=== PATIENT | female | born 1950 | race Caucasian/White ===

== ENCOUNTER 2022-01-18 13:24 | Outpatient (CLI) | payer MEDICARE, OTHER, SELFPAY ==
--- OUTSIDE RECORDS SUMMARY | 2022-01-18 13:28 | XMS_ITS | Encounter Summary ---
:1950 Author Organization [facility] Address [address] [place] [address] Care Team Providers Name Role Phone Unavailable Primary Care Provider Unavailable Encounter Details Date Type Department Care Team Description 09/21/2020 Immunization Department of [facility] J Carlos Turner For COVID-19 Medicine, Eric Walters M.D. 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
--- OUTSIDE RECORDS SUMMARY | 2022-01-18 13:28 | XMS_ITS | Encounter Summary ---
:1950 Author Organization [facility] Address [address] [place] [address] Care Team Providers Name Role Phone Unavailable Primary Care Provider Unavailable Encounter Details Date Type Department Care Team Description 08/01/2018 Hospital Encounter Department of Laboratory Banuelos, [facility] latoya Pickett, Diarrhea [facility] [address] [facility] [address] [place], [place] [phone] (Wo rk) Social History Tobacco Use Types Packs/Day Years Used Date Smoking Tobacco: Former Sex Assigned at Date Recorded Female 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 dicyclomine (BENTYL) 10 Take 20 mg by mouth 0 mg capsule 3 (three) times a day. Lactobacillus rhamnosus Take 2 capsules by 0 GG (CULTURELLE) 10 mouth every evening. billion cell capsule sertraline (ZOLOFT) 100 Take 200 mg by mouth 0 mg tablet daily. acetaminophen (TYLENOL) Take 2 tablets 0 07/22/19 19 500 mg tablet (1,000 mg total) by mouth every 6 (six) hours as needed for pain (first line option for pain). oxyCODONE (ROXICODONE) 5 Take 1 tablet (5 mg 12 tablet 0 mg immediate release total) by mouth tabletIndications: Acute every 6 (six) hours Pain as needed for severe pain or score 7-10 of 10 (breakthrough pain, pain not controleed by Tylenol and Tramadol) Indication: Acute Pain. polyethylene glycol Take 1 packet (17 g 10 packet 0 019 (MIRALAX) 17 gram powder total) by mouth packet daily as needed for constipation. Dissolve each 17 g dose in 240 mLs (8 ounces) of beverage. sennosides-docusate Take 2 tablets by 0 9 sodium (SENOKOT-S) 8.6-50 mouth 2 (two) times mg per tablet a day. traMADol (ULTRAM) 50 mg Take 1 tablet (50 mg 15 tablet 0 tabletIndications: Acute total) by mouth Pain Exception every 6 (six) hours as needed for moderate pain or score 4-6 of 10 (second line option for pain, pain not controlled by tylenol alone) for up to 20 doses Indications: Acute Pain Exception. traMADol (ULTRAM) 50 mg Take 1 tablet (50 mg 8 tablet 0 08/08/2018 tabletIndications: total) by mouth Prolonged Acute every 6 (six) hours Pain/Traumatic Injury as needed for pain, mild pain or score 1-3 of 10 or moderate pain or score 4-6 of 10 for up to 7 days Indications: Prolonged Acute Pain/Traumatic Injury. Take as needed for pain documented as of this encounter Plan of Treatment Not on filedocumented as of this encounter Visit Diagnoses Diagnosis Diarrhea documented in this encounter Additional Health Concerns Assessment Noted Time PHQ-9 Depression Total Score: 2 02/19/2014 2:58 PM CDT documented as of this encounter
--- OUTSIDE RECORDS SUMMARY | 2022-01-18 13:28 | XMS_ITS | Encounter Summary ---
:1950 Author Organization [facility] Address [address] [place] [address] Care Team Providers Name Role Phone Unavailable Primary Care Provider Unavailable Encounter Details Date Type Department Care Team Description 09/23/2018 Clinical Communication Division of Trauma Avtar carcamo, Critical Care and Dori Oliva APRN, General Surgery in C.N.P., M.S.N . 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 - 09/23/2018 1:11 PM CDT Ms. Painting called inquiring about the results of a chest x-ray she had sent over at our request for follow-up of her traumatic rib fractures. I called her back to discuss the findings. She is having no current respiratory symptoms. No shortness of breath. No dyspnea on exertion. Chest x-ray showed small residual pleural effusion unchanged from the previous x-ray as well as a small hematoma related to posterior rib fractures. This is also unchanged from the previous imaging. She does not require any further chest x-rays or follow-up here in our clinic. If she should develop any shortness of breathor acute pain, she will be seen at her local emergency department or by her primary care provider. documented in this encounter Plan of Treatment Not on filedocumented as of this encounter Visit Diagnoses Not on filedocumented in this encounter Additional Health Concerns Assessment Noted Time PHQ-9 Depression Total Score: 2 02/19/2014 2:58 PM CDT documented as of this encounter
--- OUTSIDE RECORDS SUMMARY | 2022-01-18 13:28 | XMS_ITS | Encounter Summary ---
:1950 Author Organization [facility] Address [address] [place] [address] Care Team Providers Name Role Phone Unavailable Primary Care Provider Unavailable Encounter Details Date Type Department Care Team Description 08/06/2018 Hospital Encounter Department of J Carlos Hernandez Hemot horax Trauma Initial; Radiology, Adolfo WILKES C.N.P., Pneumotho rax Trauma Initial; Building, in .S.N. 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 Fracture Rib Multiple Closed Initial Left documented in this encounter Results DX Chest AP or PA and Lateral 2 Views (08/06/2018 10:09 AM COIL FINISHER) Anatomical Region Laterality Modality Chest, Thoracic RST LOS, Thoracic ARZ LOS, Thoracic N/A Digital Radiography FLA LOS Specimen (Source) Anatomical Collection Method Collection Time Re ceived Time Location / / Volume Laterality 08/06/2018 10:16 AM COIL FINISHER Impressions 08/06/2018 10:18 AM COIL FINISHER IMPRESSION: Small left effusion has increased compared to prior. Multiple left-sided rib fractures. No pneumothora x. Heart size and pulmonary vasculature are normal. Narrative 08/06/2018 10:18 AM COIL FINISHER EXAM: ??DX CHEST AP OR PA AND LATERAL 2 VIEWS Procedure Note Keny Claros M.D. - 08/06/2018Formatt ing of this note might be different from the original. EXAM: DX CHEST AP OR PA AND LATERAL 2 EWS IMPRESSION: Small left effusion has incr eased compared to prior. Multiple left-sided rib fractures. No pneumothora x. Heart size and pulmonary vasculature are normal. J Carlos Hernandez APRN C.N.Hayden., M.S.N. IMG DIAGNOSTIC IMAG ING PROCEDURES documented in this encounter Visit Diagnoses Diagnosis Hemothorax Trauma Initial Pneumothorax Trauma Initial Fracture Rib Multiple Closed Initial Lef t documented in this encounter Additional Health Concerns Assessment Noted Time PHQ-9 Depression Total Score: 2 02/19/2014 2:58 PM CDT documented as of this encounter
--- OUTSIDE RECORDS SUMMARY | 2022-01-18 13:28 | XMS_ITS | Encounter Summary ---
:1950 Author Organization [facility] Address [address] [place] [address] Care Team Providers Name Role Phone Unavailable Primary Care Provider Unavailable Reason for Visit Appointment Request (Routine) - Closed Specialty Diagnoses / Procedures Referred By Contact Refer red To Contact Family Medicine Referral ID Status Reason Start Date Expiration Date Visits Requ ested Visits Authorized [id number] Closed 08/18/2021 08/18/2022 1 1 Encounter Details Date Type Department Care Team Description 09/09/2021 Immunization Department of Family Medicine, [facility], in [place], [place] [address] [place] [phone] Social History Tobacco Use Types Packs/Day Years Used Date Smoking Tobacco: Former Sex Assigned at Date Recorded Female 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
--- OUTSIDE RECORDS SUMMARY | 2022-01-18 13:28 | XMS_ITS | Encounter Summary ---
:1950 Author Organization [facility] Address [address] [place] [address] Care Team Providers Name Role Phone Unavailable Primary Care Provider Unavailable Reason for Visit Reason Comments Rib Injury Outpatient (Routine) - Closed Specialty Diagnoses / Procedures Referred By Contact Refer red To Contact Trauma Critical Care Banuelos, Dara Pedroza egalva and General Surgery P.A.-CYvonne [address] [place] [phone] Referral ID Status Reason Start Date Expiration Date Visits Requ ested Visits Authorized [id number] Closed 08/06/2018 08/06/2019 1 1 Encounter Details Date Type Department Care Team Description 08/13/2018 Office Visit Division of Trauma Banuelos, Radhames Pedroza-CYvonne [address] [place] [phone] Pneumothorax Trauma Initial (Primary Dx) ; Critical Care and Matthew Lee APRN [address] [place] [phone] Hemothorax Trauma Initial; General Surgery in Fracture Rib Multiple Closed Initial Left; [place], [place] Major Laceration Spleen Init ial; [address] [place] [address] Splenectomy [place] [phone] Social History Tobacco Use Types Packs/Day Years Used Date Smoking Tobacco: Former Sex Assigned at Date Recorded Female 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 - 08/13/2018 10:00 AM CST SUBJECTIVE CHIEF COMPLAINT / REASON FOR VISIT Yarelis Painting is a 67 y.o. female who presents for evaluation of Rib Injury. HISTORY OF PRESENT ILLNESS Ms. 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 Since her discharge she has been doing well she has been tolerating a general diet she denies any fevers chills or shortness ofbreath. She has returned to her normal activities of daily living. At this time she is not driving she is not taking any narcotic pain medications and is only taking Tylenol as needed. She followed up with a chest x-ray last week noting a left pleural effusion. A chest x-ray was obtained today showing to little to no change. The following portions of the patient's history were reviewed and updated as appropriate: allergies,current medications, family history, medical history, social history, surgical history and problem list. OBJECTIVE PHYSICAL EXAM Constitutional: She is oriented to person, place, and time. Vital signs are normal. She appears well-developed and well-nourished. No distress. Cardiovascular: Normal rate, regular rhythm, S1 normal, S2 normal, normal heart sounds and normal pulses. Exam reveals no S3 and no S4. Pulmonary/Chest: Effort normal and breath sounds normal. No respiratory distress. She has no decreased breath sounds. She has no wheezes. She has no rales. She exhibits no tenderness. Some ecchymosis noted on the left chest wall and abdomen. This appears to be resolving. Abdominal: Soft. Normal appearance and bowel sounds are normal. She exhibits no distension. There isno tenderness. Abdominal incision is well approximated no erythema purulent discharge or acute signs or symptoms ofinfection. Neurological: She is alert and oriented to person, place, and time. She has normal strength. GCS eyesubscore is 4. GCS verbal subscore is 5. GCS motor subscore is 6. Skin: Skin is warm and dry. Capillary refill takes less than 2 seconds. No cyanosis or erythema. ASSESSMENT / PLAN #1 Pneumothorax Trauma Initial #2 Hemothorax Trauma Initial #3 Fracture Rib Multiple Closed Initial Left #4 Major Laceration Spleen Initial #5 Splenectomy Total Status Post Ms. Painting chest x-ray today shows unchanged small left pleural effusion. Clinically Ms. Painting looks excellent and is progressing as expected. Given the lack of resolution for the left-sided pleural effusion I will be speaking with one of my colleagues regarding further follow-up and/or interventions that would be required. Obviously there would be some concern for a loculated fluid collection with the complication of lung entrapment. I informed Ms. Painting that I will follow up with her tomorrow after discussing the findings with the trauma surgeon on staff. I have spoken with Dr. Pimentel about Ms Campos Chest xray and since she is asymptomatic there is little that is recommended about her loss of lung volume. I followed up with her with a phone call and explained that since she is doing well clinically that any interventions may do more harm than good. I did explain that sometimes an infection could occur at a later date. I educated her on s/s of infection and encouraged her to give us a call if she had any other questions or concerns. I have advised her to follow up with her PCP in approximately 3 months with a chest xray for monitoring or if she develops any symptoms to give us a call and be seen sooner. She agreed with the plan of care. WARE COMPUTER SPECIALIST documented in this encounter Plan of Treatment Not on filedocumented as of this encounter Visit Diagnoses Diagnosis Pneumothorax Trauma Initial - Primary Hemothorax Trauma Initial Fracture Rib Multiple Closed Initial Lef t Major Laceration Spleen Initial Splenectomy Total Status Post documented in this encounter Additional Health Concerns Assessment Noted Time PHQ-9 Depression Total Score: 2 02/19/2014 2:58 PM CDT documented as of this encounter
--- OUTSIDE RECORDS SUMMARY | 2022-01-18 13:28 | XMS_ITS | Encounter Summary ---
:1950 Author Organization [facility] Address [address] [place] [address] Care Team Providers Name Role Phone Unavailable Primary Care Provider Unavailable Reason for Referral Outpatient (Routine) - Closed Specialty Diagnoses / Procedures Referred By Contact Refer red To Contact Trauma Critical Care BanuelosKhushbu [facility] and General Surgery Myles [address] [place] [address] Referral ID Status Reason Start Date Expiration Date Visits Requ ested Visits Authorized [id number] Closed 08/06/2018 08/06/2019 1 1 OPERATOR Reason for Visit Reason Comments Follow-up Outpatient (Routine) - Closed Specialty Diagnoses / Procedures Referred By Contact Refer red To Contact Trauma Critical Care J Carlos Hernandez [facility] Nadya WILKES, M.S.N. [address] [place] [address] Referral ID Status Reason Start Date Expiration Date Visits Requ ested Visits Authorized [id number] Closed 07/22/2018 07/22/2019 1 1 Encounter Details Date Type Department Care Team Description 08/06/2018 Office Visit Division of Trauma J Carlos Hernandez APRN, C.NChad, M.S.N. [address] [place] [phone] Fracture Rib Multiple Closed Initial Lef t (Primary Dx); Critical Care and Khushbu Banuelos P.A.-C. 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 - 08/06/2018 11:00 AM CST SUBJECTIVE CHIEF COMPLAINT / REASON FOR VISIT Yarelis Painting is a 67 y.o. female who presents for follow up for reevaluation of rib fractures and abdominal wound check. HISTORY OF PRESENT ILLNESS Ms. Painting presented to [facility] on 07/15/18 after a fall from standing. After evaluation, she was transferred to [facility] for further evaluation of her traumatic injuries. Upon arrival, massive transfusion was initiated and the decision was made to proceed with operative intervention. She was taken to the operating room at which time she was noted with a splenic laceration with active bleeding. She underwent splenectomy. She was admitted and her injuries were monitored. A CT was also inserted on 07/18/18 for a management of left hemopneumothorax. This was removed on 07/20/18.She remained hospitalized until 07/22/18 at which time she was discharged to home. She presents todayfor scheduled follow up with CXR and wound check. She notes that she is slowly improving. She states that she continues to experience pain in her left chest, however, notes that she has now been utilizing Tylenol 1000 mg every 6 hours alone. She denies any continued use of Oxycodone or Tramadol. She denies any dyspnea at rest. She does report that she is able to perform her normal daily activities however is feeling winded at times. She denies anypalpitations. She also denies any cough, fever or chills. She reports she is performing deep inspiration 10 times per hour and is utilizing incentive spirometry at least 1 time per day at which time she is pulling 2000. She notes that her appetite is slowly improving but she continues to feel full after minimal intake. She, however, is able to take oral intake. She notes that she previously was experiencing diarrhea, however, she is now having this small formed stools approximately 3 times per day. She notes that today she has not had any bowel movement. She notes she is ambulating with assist of a walker. She denies any other issues or concerns. OBJECTIVE PHYSICAL EXAM GEN:Alert and Oriented NEURO: GCS 15 PULM: Clear to Auscultation Bilaterally, No Rhonchi, Rales or Wheezes, Left lateral chest wall tender to palpation, no palpable crepitus or deformity CVS:regular rate and rhythm ABD:Soft, Nontender, Nondistended, Midline abdominal incision healed with skin well approximated, nosurrounding erythema or drainage, Previous left BERNY site healed with skin well approximated, no surrounding erythema or drainage ASSESSMENT / PLAN #1 Status post Fall from Standing on ICE #2 Fracture Rib Multiple Closed Initial Left #3 Pneumothorax Trauma Initial #4 Hemothorax Trauma Initial Left 3-8 lateral, 4-8 posterior with flail segment 4-8 Left hemopneumothorax s/p CT (07/18/18) At this time, her pain has been controlled with utilization of Tylenol 1000 mg every 6 hr. She has discontinued utilization of any narcotics. She denies any significant shortness of breath and is comfortable upon examination. She is utilizing incentive spirometry and is pulling 1999. I have reviewed her chest x-ray performed today. I note a minimal effusion that has developed from previous chest x-ray. On full review, I note a possible slight increased collapse of her chest wall. This, however is also minimal but requires close follow-up. Given her pain is controlled and she is otherwise doing well, I have elected to follow this chest x-ray with a follow-up chest x-ray next week. I have advised the patient to contact our service immediately if she notes increasing shortness of breath or increasing pain. At her follow-up visit, if further concerns are noted in regards to her chest x-ray the Trauma data communications software consultant, Dr. Pimentel, will be contacted to evaluate the patient to discuss if further interventions are necessary. I have also recommended increased use of incentive spirometry and continued utilization of her pain regimen. I have also stressed the importance of lifting restriction. #5 Major Laceration Spleen Initial #6 Splenectomy Total Status Post #7 Anemia Posthemorrhagic Acute (Blood Loss Anemia) S/p Exploratory Laparotomy, Splenectomy (07/15/18) She notes no abdominal pain at this time. Her midline incision has completely closed and is noted with no open areas. No signs of infection are observed. Her diet is slowly improving. She notes that the diarrhea that she was previously experiencing has resolved. We have discussed her need for repeat splenic vaccinations in October. She will follow up with her primary care provider for these vaccinations.We will reiterate this to her at her next visit. OPERATOR documented in this encounter Plan of Treatment Scheduled Referrals Name Type Priority Associated Diagnoses Order S [facility] Trauma Critical Outpatient Referral Routine Expec anastasiya: Care and General 08/13/2018 Surgery office (Approximate) , visit (clinic) Expires: 08/06/2021 documented as of this encounter Results DX Chest AP or PA and Lateral 2 Views (08/13/2018 9:52 AM ALUM OPERATOR) Anatomical Region Laterality Modality Chest, Thoracic RST LOS, Thoracic ARZ LOS, Thoracic N/A Digital Radiography FLA LOS Specimen (Source) Anatomical Collection Method Collection Time Re ceived Time Location / / Volume Laterality 08/13/2018 10:00 AM ALUM OPERATOR Impressions 08/13/2018 10:03 AM ALUM OPERATOR IMPRESSION: ??No significant change since 08/06/2018. Small left pleural effusion with adjacent atelectasis. Left rib frac tures. Narrative 08/13/2018 10:03 AM ALUM OPERATOR EXAM: ??DX CHEST AP OR PA AND LATERAL 2 VIEWS Procedure Note Luan Suarez M.D. - 08/13/2018F ormatting of this note might be different from the original. EXAM: DX CHEST AP OR PA AND LATERAL 2 EWS IMPRESSION: No significant change since 08/06/2018. Small left pleural effusion with adjacent atelectasis. Left rib frac tures. Khushbu Banuelos P.A.-C. IMG DIAGNOSTIC IMAGING PROCE DURES documented in this encounter Visit Diagnoses Diagnosis Fracture Rib Multiple Closed Initial Lef t - Primary Pneumothorax Trauma Initial Hemothorax Trauma Initial Major Laceration Spleen Initial Splenectomy Total Status Post Anemia Posthemorrhagic Acute (Blood Loss Anemia) Fracture Rib Multiple Closed Initial Lef t documented in this encounter Additional Health Concerns Assessment Noted Time PHQ-9 Depression Total Score: 2 02/19/2014 2:58 PM CDT documented as of this encounter
--- OUTSIDE RECORDS SUMMARY | 2022-01-18 13:28 | XMS_ITS | Encounter Summary ---
:1950 Author Organization [facility] Address [address] [place] [address] Care Team Providers Name Role Phone Unavailable Primary Care Provider Unavailable Encounter Details Date Type Department Care Team Description 08/13/2018 Hospital Encounter Department of Banuelos, Meliza Pedroza Radiology, Adolfo Bueno Multiple Closed Building, in [address] [place] [address] Initial Left [place], [place] [address] [facility] [address] [place], [place] [phone] [address] (Work) [phone] Social History Tobacco Use Types Packs/Day Years Used Date Smoking Tobacco: Former Sex Assigned at Date Recorded Female 07/31/2018 2:58 PM HOOK UP documented as of this encounter Medications at Time of Discharge Medication Sig Dispensed Refills Start Date End Date cholecalciferol (VITAMIN Take 1,000 Units by 0 D3) 1,000 Unit tablet mouth daily. dicyclomine (BENTYL) 10 mg Take 20 mg by mouth 3 0 capsule (three) times a day. Lactobacillus rhamnosus GG Take 2 capsules by 0 (CULTURELLE) 10 billion mouth every evening. cell capsule sertraline (ZOLOFT) 100 mg Take 200 mg by mouth 0 tablet daily. acetaminophen (TYLENOL) Take 2 tablets (1,000 0 0 07/22/2018 500 mg tablet mg total) by mouth every 6 (six) hours as needed for pain (first line option for pain). oxyCODONE (ROXICODONE) 5 Take 1 tablet (5 mg 12 tablet 0 mg immediate release total) by mouth every tabletIndications: Acute 6 (six) hours as Pain needed for severe pain or score 7-10 of 10 (breakthrough pain, pain not controleed by Tylenol and Tramadol) Indication: Acute Pain. polyethylene glycol Take 1 packet (17 g 10 packet 0 019 (MIRALAX) 17 gram powder total) by mouth daily packet as needed for constipation. Dissolve each 17 g dose in 240 mLs (8 ounces) of beverage. sennosides-docusate sodium Take 2 tablets by 0 (SENOKOT-S) 8.6-50 mg per mouth 2 (two) times a tablet day. traMADol (ULTRAM) 50 mg Take 1 tablet (50 mg 15 tablet 0 tabletIndications: Acute total) by mouth every Pain Exception 6 (six) hours as needed for moderate pain or score 4-6 of 10 (second line option for pain, pain not controlled by tylenol alone) for up to 20 doses Indications: Acute Pain Exception. documented as of this encounter Plan of Treatment Not on filedocumented as of this encounter Procedures Procedure Name Priority Date/Time Associated Comments Diagnosis DX CHEST AP OR PA RAD - Routine 08/13/2018 9:52 Fracture Rib Result s for this AND LATERAL 2 (most inpatients AM HOOK UP Multiple Closed procedu re are in VIEWS and all Initial Left the results outpatients) section. documented in this encounter Results DX Chest AP or PA and Lateral 2 Views (08/13/2018 9:52 AM HOOK UP) Anatomical Region Laterality Modality Chest, Thoracic RST LOS, Thoracic ARZ LOS, Thoracic N/A Digital Radiography FLA LOS Specimen (Source) Anatomical Collection Method Collection Time Re ceived Time Location / / Volume Laterality 08/13/2018 10:00 AM HOOK UP Impressions 08/13/2018 10:03 AM HOOK UP IMPRESSION: ??No significant change since 08/06/2018. Small left pleural effusion with adjacent atelectasis. Left rib frac tures. Narrative 08/13/2018 10:03 AM HOOK UP EXAM: ??DX CHEST AP OR PA AND LATERAL 2 VIEWS Procedure Note Luan Suarez M.D. - 08/13/2018F ormatting of this note might be different from the original. EXAM: DX CHEST AP OR PA AND LATERAL 2 EWS IMPRESSION: No significant change since 08/06/2018. Small left pleural effusion with adjacent atelectasis. Left rib frac tures. Khushbu [facility] ISAIAS HURTADO documented in this encounter Visit Diagnoses Diagnosis Fracture Rib Multiple Closed Initial Lef t documented in this encounter Additional Health Concerns Assessment Noted Time PHQ-9 Depression Total Score: 2 02/19/2014 2:58 PM CDT documented as of this encounter
--- OUTSIDE RECORDS SUMMARY | 2022-01-18 13:28 | XMS_ITS | Encounter Summary ---
:1950 Author Organization [facility] Address [address] [place] [address] Care Team Providers Name Role Phone Unavailable Primary Care Provider Unavailable Reason for Referral Specialty Diagnoses / Procedures Referred By Contact Refer red To Contact [address] [address] Referral ID Status Reason Start Date Expiration Date Visits Requ ested Visits Authorized CAR WELDER Reason for Visit Appointment Request (Routine) - Closed Specialty Diagnoses / Procedures Referred By Contact Refer red To Contact Anderson Pierce M.D. [address] [place] [address] Referral ID Status Reason Start Date Expiration Date Visits Requ ested Visits Authorized [id number] Closed 08/10/2020 08/10/2021 1 1 Encounter Details Date Type Department Care Team Description 08/20/2020 Immunization Department of [facility] Anderson Pierce ncounter For COVID-19 Medicine, Eric De Anda Jr., M.D. 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
--- OUTSIDE RECORDS SUMMARY | 2022-01-18 13:28 | XMS_ITS | Encounter Summary ---
:1950 Author Organization [facility] Address [address] [place] [address] Care Team Providers Name Role Phone Unavailable Primary Care Provider Unavailable Encounter Details Date Type Department Care Team Description 04/07/2021 [facility] Department of Family Medicine, [address] [address] [facility] [phone] Social History Tobacco Use Types Packs/Day Years Used Date Smoking Tobacco: Former Sex Assigned at Date Recorded Female 07/31/2018 2:58 PM FORESTRY PATROLMAN documented as of this encounter Plan of Treatment Not on filedocumented as of this encounter Visit Diagnoses Not on filedocumented in this encounter Additional Health Concerns Assessment Noted Time PHQ-9 Depression Total Score: 2 02/19/2014 2:58 PM CDT documented as of this encounter
--- OUTSIDE RECORDS SUMMARY | 2022-01-18 13:28 | XMS_ITS | Clinical Summary ---
:1950 Author Organization [facility] Address [address] [place] [address] Care Team Providers Name Role Phone Unavailable Primary Care Provider Unavailable Source Comments Patient records contain information from all sites at [facility]. For routine questions regarding patient records, call [phone] during business hours, M-F 8:00 AM - 5:00 PM Central Time. Record requests for emergency care only can be directed to [phone] at any time.[facility] Allergies Active Allergy Reactions Severity Noted Date Comments Fexofenadine Other (see comments) 01/01/2012 Gabapentin Other (see comments) 01/10/2016 Nsaids (Non-Steroidal GI bleeding 04/26/2016 Some m inor bleeding Anti-Inflammatory Drug) afte r Meloxicam Medications Medication Sig Dispensed Refills Start Date End Date Status cholecalciferol (VITAMIN Take 1,000 Units 0 Active D3) 1,000 Unit tablet by mouth daily. dicyclomine (BENTYL) 10 Take 20 mg by 0 Active mg capsule mouth 3 (three) times a day. Lactobacillus rhamnosus Take 2 capsules 0 Active GG (CULTURELLE) 10 by mouth every billion cell capsule evening. sertraline (ZOLOFT) 100 Take 200 mg by 0 Active mg tablet mouth daily. pregabalin (LYRICA) 75 Take 1 capsule 9 capsule 0 07/22/2018 Active mg capsule (75 mg total) by mouth 2 (two) times a day for 9 doses. sennosides-docusate Take 2 tablets 0 07/22/2018 Active sodium (SENOKOT-S) by mouth 2 (two) 8.6-50 mg per tablet times a day. Additional Information Patient not taking. Reported on 08/06/2018 oxyCODONE (ROXICODONE) 5 mg Take 1 tablet (5 mg 12 tablet 0 Active immediate release total) by mouth every 6 tabletIndications: Acute Pain (six) hours as needed for severe pain or score 7-10 of 10 (breakthrough pain, pain not controleed by Tylenol and Tramadol) Indication: Acute Pain. Additional Information Patient not taking. Reported on 08/06/2018 acetaminophen (TYLENOL) 500 Take 2 tablets (1,000 mg 0 07/22/2018 Active mg tablet total) by mouth every 6 (six) hours as needed for pain (first line option for pain). polyethylene glycol (MIRALAX) Take 1 packet (17 g 10 packet 0 07/22/2018 Active 17 gram powder packet total) by mouth daily as needed for constipation. Dissolve each 17 g dose in 240 mLs (8 ounces) of beverage. Additional Information Patient not taking. Reported on 08/06/2018 traMADol (ULTRAM) 50 mg Take 1 tablet (50 mg 15 tablet 0 07/29 Active tabletIndications: Acute Pain total) by mouth every 6 Exception (six) hours as needed for moderate pain or score 4-6 of 10 (second line option for pain, pain not controlled by tylenol alone) for up to 20 doses Indications: Acute Pain Exception. Additional Information Patient not taking. 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 Hemothorax Trauma Initial 07/19/2018 Abnormal Computed Tomography 07/19/2018 Overview: 07/15/18 CT chest with gas noted in the ri ght upper extremity, query right humerus contusion Hypophosphatemia 07/19/2018 Pneumothorax Trauma Initial 07/16/2018 Overview: Left, small Fracture Rib Multiple Closed Initial Left 07/16/2018 Anemia Posthemorrhagic Acute (Blood Loss Anemia) 07/16 Major Laceration Spleen Initial 07/15/2018 Dysthymia 05/20/2013 Overview: Dysthymic Disorder (300.4) Resolved Problems Problem Noted Date Resolved Date Hypovolemic Shock 07/16/2018 07/19/2018 Acute Respiratory Failure With Hypoxia 07/16/2018 0 07/19/2018 Immunizations Name Administration Dates Next Due HZV (ZOSTAVAX) 01/02/2011 HepA Adult 02/02/2011, 12/29/2009, 02/17/2009 HepB (discontinued) adolescent/high 06/08/2010, 12/29/2009, 02/17/2009 risk Hib (PRP-OMP) (PedvaxHIB) 07/22/2018 IPV 02/17/2009 Influenza, Unspecified 03/24/2014, 03/11/2013 MCV4 (Menactra) 07/22/2018 MenB (BEXSERO) 07/22/2018 SARS-COV-2 (COVID-19) - MODERNA 09/09/2021, 04/07/2021, 09/09, 08/20/2020 Tdap 02/17/2009 Family History Medical History Relation Name Comments Colon cancer Brother Heart disease Father Thyroid cancer Father Relation Name Status Comments Brother Father Social History Tobacco Use Types Packs/Day Years Used Date Smoking Tobacco: Former Sex Assigned at Date Recorded Female 07/31/2018 2:58 PM 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 Last Filed Vital Signs Vital Sign Reading Time Taken Comments Blood Pressure 135/62 07/22/2018 6:30 PM 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 Pulse 88 07/22/2018 6:30 PM 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 Temperature 36.3 ??C (97.3 ??F) 07/22/2018 6:30 PM 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 Respiratory Rate 16 07/22/2018 6:30 PM 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 Oxygen Saturation 99% 07/22/2018 6:30 PM 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 Inhaled Oxygen Concentration - - Weight 76.6 kg (168 lb 14 oz) 07/22/2018 8:00 AM 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 Height 170 cm (5' 6.93) 07/16/2018 8:00 AM 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 Body Mass Index 26.51 07/16/2018 8:00 AM 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 Plan of Treatment Health Maintenance Due Date Last Done Comments Bone Density Scan (Osteoporosis 1950 Screen) CT Colonography 1950 Cologuard 1950 Hepatitis C Screening 1950 Mammogram 03/24/2015 03/24/2014, 02/03/2013 (Performed elsewhere) MenB Vaccine (3 of 4 - Increased 09/17/2019 09/16/2018, 04/2019 Risk Bexsero 2-dose series) Depression Screening (Annual 06/11/2021 PHQ-2) Fall Risk Screen (Annual) 06/11/2021 COVID-19 Vaccine (5 - Booster for 01/09/2022 09/09/2021, , Moderna series) 09/21/2020, Additional history exists Influenza Vaccine (#1) 2022 03/17/2021, 02/27/2020, 03/12/2019, Additional history exists Meningococcal Vaccine (3 - Risk 09/17/2023 09/16/2018, 07/12 2-dose series) Fasting Glucose for Diabetes 04/25/2024 04/25/2021, 020, Screening 09/09/2018, Additional history exists Colonoscopy 03/08/2026 03/08/2021, 01/26/2011 Colorectal Cancer Surveillance 03/08/2026 DTaP,Tdap,and Td Vaccines (5 - Td 03/10/2030 03/10/2020, , or Tdap) 04/04/2019, Additional history exists HIB Vaccines Completed 07/22/2018 Pneumococcal vaccine (65+ years) Completed 02/27/2020, 06/2015, 10/14/2014 Zoster Vaccines Completed 08/06/2020, 05/24/2020, 01/02/2011 Insurance Payer Benefit Plan Subscriber ID Effective Phone Address Typ e / Group Dates MEDICARE MEDICARE A [id number] 2014-Prese [address] Medicare [place] [facility] [place] [address] FOR FOR [id number] 2020-Pres [phone] [address] Indemnity LIFE LIFE ent [address] [place] [address] Advance Directives For more information, please contact: [phone] Latest Code Status on File Code Status Date Activated Date Inactivated Comments Full Code 07/15/2018 10:26 PM 07/22/2018 9:17 PM Full Code: Not Discussed Due to: Patient does not have the capacity
--- OUTSIDE RECORDS SUMMARY | 2022-01-18 13:28 | XMS_ITS | Encounter Summary ---
:1950 Author Organization [facility] Address [address] [place] [address] Care Team Providers Name Role Phone Unavailable Primary Care Provider Unavailable Reason for Referral Appointment Request (Routine) - Closed Specialty Diagnoses / Procedures Referred By Contact Refer red To Contact Anderson Pierce M.D. [address] [place] [address] Referral ID Status Reason Start Date Expiration Date Visits Requ ested Visits Authorized [id number] Closed 08/10/2020 08/10/2021 1 1 NSED PSYCHIATRIC TECHNICIAN Encounter Details Date Type Department Care Team Description 08/09/2020 Orders Only RST PCP [facility] Erwin Stanford Jr., M.D. [address] [place] [phone] (Wo rk) Social History Tobacco Use Types Packs/Day Years Used Date Smoking Tobacco: Former Sex Assigned at Date Recorded Female 07/31/2018 2:58 PM LICENSED PSYCHIATRIC TECHNICIAN documented as of this encounter Plan of Treatment Scheduled Referrals Name Type Priority Associated Order Schedule Diagnoses Covid immunization Outpatient Referral Routine Ex pected: office visit Initial 021 (Approximate), Expires: 08/09/2021 documented as of this encounter Visit Diagnoses Not on filedocumented in this encounter Additional Health Concerns Assessment Noted Time PHQ-9 Depression Total Score: 2 02/19/2014 2:58 PM CDT documented as of this encounter
--- OUTSIDE RECORDS SUMMARY | 2022-01-18 13:29 | XMS_ITS | Encounter Summary ---
:1950 Author Organization 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 - 07/24/2018 1:18 PM FILM DEVELOPING MACHINE OPERATOR I received call from Tammi at [facility] requesting additional home health care orders for physical, occupational, and intermediate therapies including suture removal on 07/30/17 from old chest tube site. I contacted Tammi seeking additional information as there is active home health orders from my colleagues Annabel Clements PA-C and Merlin Hernandez FISHER MUSSEL. Her home health care agency and difficulty seeing these orders as well as electronic signatures. I copied the orders placed by both my colleagues and this seemed to resolve the issue. DEVELOPING MACHINE OPERATOR Telephone Encounter - Trang Red - 07/24/2018 9:09 AM CST [place] called indicating that she needs the order that was done by Annabel Clements late yesterday for on-going home health needs and PT and OT to be electronically signed. Please call her at [phone] if questions. Thanks DEVELOPING MACHINE OPERATOR documented in this encounter Plan of Treatment Not on filedocumented as of this encounter Visit Diagnoses Not on filedocumented in this encounter Additional Health Concerns Assessment Noted Time PHQ-9 Depression Total Score: 2 02/19/2014 2:58 PM CDT documented as of this encounter
--- OUTSIDE RECORDS SUMMARY | 2022-01-18 13:29 | XMS_ITS | Encounter Summary ---
:1950 Author Organization [facility] Address [address] [place] [address] Care Team Providers Name Role Phone Unavailable Primary Care Provider Unavailable Encounter Details Date Type Department Care Team Description 08/01/2018 Orders Only Division of Trauma Banuelos, Suresh Pedroza (Primary Dx) Critical Care and P.A.-C. General Surgery in [address] [place] [address] [place] [address] [place], [place] [phone] [address] (Work) [phone] Social History Tobacco Use Types Packs/Day Years Used Date Smoking Tobacco: Former Sex Assigned at Date Recorded Female 07/31/2018 2:58 PM DENIAL RESOLUTION SPECIALIST documented as of this encounter Plan of Treatment Not on filedocumented as of this encounter Visit Diagnoses Diagnosis Diarrhea - Primary documented in this encounter Additional Health Concerns Assessment Noted Time PHQ-9 Depression Total Score: 2 02/19/2014 2:58 PM CDT documented as of this encounter
--- OUTSIDE RECORDS SUMMARY | 2022-01-18 13:29 | XMS_ITS | Encounter Summary ---
:1950 Author Organization [facility] Address [address] [place] [address] Care Team Providers Name Role Phone Unavailable Primary Care Provider Unavailable Encounter Details Date Type Department Care Team Description 07/23/2018 Orders Only Division of Trauma Critical Robert Daley, [facility] [place] and General Surgery in [place], [place] [address] [facility] [address] [place] [address] [phone] (Wo rk) Social History Tobacco Use Types Packs/Day Years Used Date Smoking Tobacco: Former Sex Assigned at Date Recorded Female 07/31/2018 2:58 PM 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
--- OUTSIDE RECORDS SUMMARY | 2022-01-18 13:29 | XMS_ITS | Encounter Summary ---
:1950 Author Organization [facility] Address [address] [place] [address] Care Team Providers Name Role Phone Unavailable Primary Care Provider Unavailable Reason for Visit Reason Onset Date Comments Medication Problem 07/31/2018 Encounter Details Date Type Department Care Team Description 07/31/2018 Clinical Communication Division of Trauma Giuliano Martinez, Medication Problem Critical Care and M.D. 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 - 07/31/2018 9:41 AM CST Patient called back at [phone] Ms. Painting calls in today to discuss a concerns about diarrhea she is having. She reports having approximately three watery stools a day since time of dismissal. She was wondering if the Tramadol sheis taking could be causing this. She has a history of IBS which she takes probiotics and Dicyclominefor. She notes she has very occasional episodes of diarrhea with her IBS, but this is not the norm. She typically experiences constipation. She currently denies having fevers, abdominal pain, N/V. Her pain has been well controlled on Tylenol 1000 mg q 6hrs and Tramadol q 6hrs. She has discontinued taking the MiraLAX she was prescribed at the time of hospital dismissal to see if this would help alleviate the watery stools, without benefit. She has not taken the Tramadol in almost 24 hours, without change in the stool consistency. She has been tolerating an oral diet but states that she has an almost immediate urge to have a bowel movement following eating. She was on genesis-operative antibiotics early in her hospital course and had experienced constipation until dismissal. She has an anti-diarrheal at home that she will trial to see if this helps to alleviate things. She was also provided information on a stool thickening diet, and avoidance of sugary foods and drinks. She was instructed to stay well hydrated. If her diarrhea does not improve over the next 24-48 hours she will contact us back for further instruction. If this persists, it would not be unreasonable to send a stool specimen for microbiology testing. The patient was appreciative of the call and the information provided. She has our contact information if further questions or concerns should arise. ISION FARMING SPECIALIST Telephone Encounter - Rashmi Richards - 07/31/2018 8:23 AM CST She was given Tramadol and does not feel like it is working. Can she get something else? Please call patient at [phone]. Thank you. Rashmi ISION FARMING SPECIALIST documented in this encounter Plan of Treatment Not on filedocumented as of this encounter Visit Diagnoses Not on filedocumented in this encounter Additional Health Concerns Assessment Noted Time PHQ-9 Depression Total Score: 2 02/19/2014 2:58 PM CDT documented as of this encounter
--- OUTSIDE RECORDS SUMMARY | 2022-01-18 13:29 | XMS_ITS | Encounter Summary ---
:1950 Author Organization [facility] Address [address] [place] [address] Care Team Providers Name Role Phone Unavailable Primary Care Provider Unavailable Encounter Details Date Type Department Care Team Description 07/23/2018 Clinical Communication Division of Trauma Isac Daley, Critical Care and CHUNG, C.N.P. 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 - 07/23/2018 10:03 AM PARTICLE BOARD SUPERVISOR We received a message from Ms. Painting regarding needing a refill on her Tramadol pain medication. She had a splenectomy/exploratory laparotomy on 07/15/2018 after falling on the ice. She was also inquiring about needing a refill on the Lyrica. I mentioned, we normally do not refill the Lyrica as it can be harming to the kidneys, but that Tramadol could definitely be refilled. She mentions she lives in [place] and her pharmacy of choice is [facility] in [place]. I have renewed her prescription and mentioned, due to weather issues today, if her pharmacy is closed, she may have to call her PCP to haveobtain a refill of her Tramadol. She was in agreement to this plan and had no further questions or concerns at this time. ICLE BOARD SUPERVISOR documented in this encounter Plan of Treatment Not on filedocumented as of this encounter Visit Diagnoses Not on filedocumented in this encounter Additional Health Concerns Assessment Noted Time PHQ-9 Depression Total Score: 2 02/19/2014 2:58 PM CDT documented as of this encounter
--- OUTSIDE RECORDS SUMMARY | 2022-01-18 13:29 | XMS_ITS | Encounter Summary ---
:1950 Author Organization [facility] Address [address] [place] [id number] Care Team Providers Name Role Phone Unavailable Primary Care Provider Unavailable Reason for Visit Reason Onset Date Comments Medication Question 07/23/2018 Encounter Details Date Type Department Care Team Description 07/23/2018 Clinical Communication Division of Trauma JC arlos Hernandez Medication Question Critical Care and B, INNER DIAMETER GRINDER TOOL, General Surgery in 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 And is wondering about getting more Tramadol as she cannot take Oxycodone and did not get that prescription filled. She was given onlyTramadol while in the hospital. Please call her [phone]. Thank you. Rashmi N PICKER documented in this encounter Plan of Treatment Not on filedocumented as of this encounter Visit Diagnoses Not on filedocumented in this encounter Additional Health Concerns Assessment Noted Time PHQ-9 Depression Total Score: 2 02/19/2014 2:58 PM CDT documented as of this encounter
--- OUTSIDE RECORDS SUMMARY | 2022-01-18 13:29 | XMS_ITS | Encounter Summary ---
:1950 Author Organization [facility] Address [address] [place] [address] Care Team Providers Name Role Phone Unavailable Primary Care Provider Unavailable Encounter Details Date Type Department Care Team Description 07/23/2018 Orders Only Division of Trauma Critical Robert Daley, [facility] and General Surgery in [place], [place] [address] 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
--- OUTSIDE RECORDS SUMMARY | 2022-01-18 13:29 | XMS_ITS | Encounter Summary ---
:1950 Author Organization [facility] Address [address] [place] [address] Care Team Providers Name Role Phone Unavailable Primary Care Provider Unavailable Reason for Visit Reason Onset Date Comments Rx refill for Tramadol 08/01/2018 Encounter Details Date Type Department Care Team Description 08/01/2018 Clinical Communication Division of Trauma Giuliano Martinez, Rx refill for Critical Care and M.D. 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 - 08/01/2018 10:29 AM CST I have talked to the patient. She reports that she has again began to utilize Tramadol. She notes that she is also taking Tylenol 1000 mg every 6 hours. She states that she is uncomfortable after use of Tylenol alone. She notes that pain has not increased. At this time, I have provided her with a refill but advised of importance of weaning use of narcotics. She also advised that she has had continued loose stools as was discussed yesterday. At this time asit has continued, we will order C diff and follow up with patient. RIAL LABORATORY SUPERVISOR Telephone Encounter - Khushbu Banuelos P.A.-C. - 08/01/2018 10:28 AM CST Is in outbox in [facility]. Will need to be picked up and overnight mailed to patient. Thanks! RIAL LABORATORY SUPERVISOR Telephone Encounter - Jdoie Torres - 08/01/2018 9:19 AM CST Patient called stating that she will need a prescription refill for her Tramadol before the weekend.Please call her back at [phone]. Thanks- RIAL LABORATORY SUPERVISOR documented in this encounter Plan of Treatment Not on filedocumented as of this encounter Visit Diagnoses Not on filedocumented in this encounter Additional Health Concerns Assessment Noted Time PHQ-9 Depression Total Score: 2 02/19/2014 2:58 PM CDT documented as of this encounter
--- OUTSIDE RECORDS SUMMARY | 2022-01-18 13:29 | XMS_ITS | Encounter Summary ---
:1950 Author Organization [facility] Address [address] [place] [address] Care Team Providers Name Role Phone Unavailable Primary Care Provider Unavailable Reason for Referral Physical Therapy (Routine) - Closed Specialty Diagnoses / Procedures Referred By Contact Refer red To Contact Home Health Care Diagnoses Debility Unsteadiness Gait Disorder Non Orthopedic J Carlos Hernandez, Nadya WILKES, M.S.N. [address] [place] [address] Referral ID Status Reason Start Date Expiration Date Visits Requ ested Visits Authorized [id number] Closed Other 07/22/2018 07/22/2019 1 1 CIATE ENTERTAINMENT EDITOR Encounter Details Date Type Department Care Team Description 07/22/2018 Orders Only Division of Trauma J Carlos Hernandez, Manju ty (Primary Dx); Critical Care and Nadya WILKES, Unsteadin ess Gait Disorder Non Orthopedic General Surgery in 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
--- OUTSIDE RECORDS SUMMARY | 2022-01-18 13:30 | XMS_ITS | Encounter Summary ---
:1950 Author Organization [facility] Address [address] [place] [address] Care Team Providers Name Role Phone Unavailable Primary Care Provider Unavailable Encounter Details Date Type Department Care Team Description 07/16/2018 Ancillary Procedure Department of Laboratory Medicine Social History Tobacco Use Types Packs/Day Years Used Date Smoking Tobacco: Former Sex Assigned at Date Recorded Female 07/31/2018 2:58 PM BAKER CHEF documented as of this encounter Plan of Treatment Not on filedocumented as of this encounter Procedures Procedure Name Priority Date/Time Associated Diagnosis Comme nts PATHOLOGY IMAGE Routine 07/16/2018 8:42 AM Result s for this EXAM BAKER CHEF procedure are i n the results section. documented in this encounter Results Specimen-Pathology Image Exam (07/16/2018 8:42 AM BAKER CHEF) Specimen (Source) Anatomical Collection Method Collection Time Re ceived Time Location / / Volume Laterality 07/16/2018 12:00 PM BAKER CHEF Narrative [facility] - 07/16/2018 8:42 AM BAKER CHEF This order has been created and auto-finalized to support the import of images acquired without order. The clini abdoul documentation to support these images can be found on the encounter nadia t produced images. Provider Not In System IMG NON RAD IMAGING PROCEDUR ES Performing Organization Address City/State/ZIP Code Phon e Number [facility] NA documented in this encounter Visit Diagnoses Not on filedocumented in this encounter Additional Health Concerns Assessment Noted Time PHQ-9 Depression Total Score: 2 02/19/2014 2:58 PM CDT documented as of this encounter
--- OUTSIDE RECORDS SUMMARY | 2022-01-18 13:30 | XMS_ITS | Encounter Summary ---
:[address] 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 documented in this encounter Results CT Retrospective 3D Post Processing (07/18/2018 11:33 AM RUSSIAN LANGUAGE PROFESSOR) Anatomical Region Laterality Modality Abdomen, Pelvis, Musculoskeletal RST LOS, Abdominal Computed Tomography ARZ LOS, Musculoskeletal ARZ LOS, Neuroradiology ARZ LOS, Thoracic ARZ LOS, Vascular Interventional ARZ LOS, Abdominal FLA LOS, Thoracic FLA LOS, Neuroradiology FLA LOS, Muskuloskeletal FLA LOS Specimen (Source) Anatomical Collection Method Collection Time Re ceived Time Location / / Volume Laterality 07/18/2018 12:49 PM RUSSIAN LANGUAGE PROFESSOR Impressions 07/18/2018 12:51 PM RUSSIAN LANGUAGE PROFESSOR IMPRESSION: 3-D images performed on an independent w orkstation and reside in the CT examination of the chest in [facility] 019. Narrative 07/18/2018 12:51 PM RUSSIAN LANGUAGE PROFESSOR EXAM: CT RETROSPECTIVE 3D POST PROCESSING 3D Post-Processing performed on an imeem workstation. Procedure Note Cristofer De Oliveira M.D. - 07/18/2018Forma tting of this note might be different from the original. EXAM: CT RETROSPECTIVE 3D POST PROCESSIN G 3D Post-Processing performed on an imeem workstation. IMPRESSION: 3-D images performed on an independent w orkstation and reside in the CT examination of the chest in [facility] 019. J Carlos Elena M.D. IMCharmaine CT PROCEDURES documented in this encounter Visit Diagnoses Not on filedocumented in this encounter Additional Health Concerns Assessment Noted Time PHQ-9 Depression Total Score: 2 02/19/2014 2:58 PM CDT documented as of this encounter
--- OUTSIDE RECORDS SUMMARY | 2022-01-18 13:30 | XMS_ITS | Encounter Summary ---
:1950 Author Organization [facility] Address [address] [place] [address] Care Team Providers Name Role Phone Unavailable Primary Care Provider Unavailable Encounter Details Date Type Department Care Team Description 07/15/2018 Anesthesia Event RST ROMB MAIN OR Shara Santiago M.D. [address] [place] [address] [phone] [place] [address] Ariela Sanderson, PSYCHOLOGICAL OPERATIONS SPECIALIST, ENVIRONMENTAL HEALTH OFFICER, DNAP [address] [place] [address] [phone] [place] [address] Anesthesia Record Procedure Summary Procedure Name Responsible Anesthesiologist Anesthesia Start Ti me Anesthesia Stop Time Splenectomy Shara Santiago, 07/15/18 1841 9 2222 M.DYvonne Events Date Time Event Comment 07/15/2018 1841 An Start Machine/Equipmen t Checked Infection Precautions Foll owed Procedure/Site Verified NPO Sta tus Verified Supine Standard ASA Mon itors Applied 184 In Room 1850 An Intubation 1850 An Intubation 1854 Turnover to Proceduralist 1858 Proc Start 1902 An Induction 1907 An Induction 2124 Proc Fin 2152 Turnover to ANE Staff 2154 Airway Device Maintained to Post Op Area 2154 Transfer to ICU/PCU Anesthesia t ransport medically necessary Report received and care transferred Eliza l signs stable during transfer Ventilation and oxygen saturatio n stable during transport 2158 an stop data 0 Out of Room 2221 An End I completed my h andoff to the receiving staff during which we 1. Identified the p atient 2. Identified the r esponsible provider 3. Reviewed the pertinent medical history 4. Discu ssed the surgical course 5. Review ed intra-op anesthesia manag ement and issues during anesthesi a 6. Set expectations for post-procedure period 7. Allowe d opportunity for questions and ac knowledgement of understanding. Name Total fentanyl injection 50 mcg/mL 250 mcg propofol 10 mg/mL 120 mg succinylcholine 20 mg/mL injection 80 mg phenylephrine 100 mcg/mL injection 200 mcg sugammadex 100 mg/mL injection 200 mg vecuronium 10 mg injection 6 mg propofol 10 mg/mL infusion 940.26 mg ceFAZolin 2 g calcium gluconate 100 mg/mL (10%) injection 4 g sodium bicarbonate 1 mEq/mL injection 100 mEq HYDROmorphone PF 2 mg/mL injection 2 mg lactated ringers free drip 3,500 mL Agents No agents on file. Blood Name Total EMERGENCY PLTS 197 mL AUTOLOGOUS RBC-CELL SALVAGE 1,075 mL Lines, Drains, and Airways Type Details Placement Removal Indwelling Urinary Placement Date: 07/15/18 0000 by 07/17/18 161 9 by Catheter 07/15/18; Removal Date: Mabel Monae, Rachelle Diamond, 07/17/18; Removal Time: R.N. R.N. 1619 (RETIRED) Wound 07/15/18; No; Laceration 07/15/18 0000 by 1418 by (bite wisam ); Mouth Mabel Monae, [facility] c-Backgr (Lower Lip ); 03/01/21 R.N. nd, Sched uling (Removed by background Automated Batch Job completion utility); 1418 (Removed by background completion utility) Peripheral IV Placement Date: 07/15/18 1629 by 07/16/18 1045 b y 07/15/18; Placement Demetria Joshi, Lala Munroe V., Time: 1629; Existing LDA PSYCHOLOGICAL OPERATIONS SPECIALIST, C.N.P., D.N.P. R. N., CCRN Placed by: Other hospital; Catheter Size: 18 G; Orientation: Left; Location: Antecubital; Site Prep: Chlorhexidine (Preferred); Removal Date: 07/16/18; Removal Time: 1045; Removal Reason: Drainage Peripheral IV Placement Date: 07/15/18 1630 by 07/15/18 2247 b y 07/15/18; Placement Demetria Joshi, Solitario Monae, Time: 163; Existing LDA Nadir WILKESNChad, Genaro.P. R. N. Placed by: Other hospital; Catheter Size: 20 G; Orientation: Right; Location: Antecubital; Removal Date: 07/15/18; Removal Time: 224 Peripheral IV Placement Date: 07/15/181836 by 07/18/18 1100 b y 07/15/18; Placement Demetria Joshi, Shay Diamond, Time: 1836; Catheter Nadya WILKES, Genaro.P. R.N. Size: 18 G; Orientation: Left; Location: Wrist; Removal Date: 07/18/18; Removal Time: 1100 ETT Placement Date: 07/15/181850 by 07/16/18 1245 b y 07/15/18; Placement Oralia Fermin Jansen, E mily V., Time: 1850 (created via CHUNG R.N. R.N., narrow gauge brakeman documentation); Mask Ventilation: Not attempted; Type: Standard ETT; Single Lumen Tube Size: 7 mm; Cuffed: Yes; Location: Oral; Removal Date: 07/16/18; Removal Time: 1245 Arterial Line Placement Date: 07/15/181915 by 07/16/18 1709 b y 07/15/18; Placemnt Time: Oralia Fermin [place]in [place], Jeffrey J, 1915 (created via CHUNG, R.N. R.N. procedure documentation); Orientation: Right; Location: Radial; Site Prep: Chlorhexidine (Preferred); Insertion Attempts: 4; Securement: Securement dressing; Removal Date: 07/16/18; Removal Time: 1709 NG/OG Tube 07/15/18; 1919; 18 Fr; 07/15/181919 by 07/15/182354 by Right; 07/15/18; 2354 Isa Ta Tatma n, Tayler J, CHUNG, MADAN, Ingrid.N.P. R.N. Closed/Suction Drain 07/15/18; 1950; Abdomen; 07/15/181950 by 0 07/21/18 1300 by Bulb; 19 Fr.; No longer Ahsan Peoples, Hayden Rodriguez, in place, Per protocol Nadya WILKES, M.S.N. R.N. (RETIRED) Incision 07/15/18; 2128; Abdomen; 07/15/182128 by 1418 by ELENA PRIMAPORE 8X4 (x1); Ahsan Peoples, [facility]-Backgrou 03/01/21 (Removed by Nadya WILKES, M.S.N. nd, Ar heduling background completion Automated Batch Job utility); 1418 (Removed by background completion utility) documented in this encounter Social History Tobacco Use Types Packs/Day Years Used Date Smoking Tobacco: Former Sex Assigned at Date Recorded Female 07/31/2018 2:58 PM BRIQUETTE OPERATOR documented as of this encounter OR Notes Anesthesia Postprocedure Evaluation - Romario Rodriguez APRN, CRNA - 07/15/2018 10:22 PM CST Patient: Yarelis Painting Procedure Summary Date: 07/15/18 Room / Location: [place] [address] / [facility] in [place], [place] Anesthesia Start: 1840 Anesthesia Stop: 2221 Procedures: Splenectomy (N/A ) Exploratory Laparotomy (N/A ) Diagnosis: Provider: Lourdes Brown M.D. Responsible Provider: Shara Santiago M.D. Anesthesia Type: general ASA Status: 2 - Emergent Anesthesia Type: general Last vitals Vitals Value Taken Time BP 111/61 07/15/2018 10:15 PM Temp 36.5 07/15/2018 10:22 PM Pulse 82 07/15/2018 10:22 PM Resp 18 07/15/2018 10:22 PM SpO2 100 % 07/15/2018 10:22 PM Vitals shown include unvalidated device data. Anesthesia Post Evaluation Patient Disposition: monitored unit, expectation for recovery time deferred to receiving unit Cardiovascular status: hemodynamics (HR & BP) acceptable Respiratory status: mechanically ventilated Temperature: normothermic Oxygen requirements: assisted ventilation (non-invasive or mechanical ventilation) with additional oxygen Level of consciousness: unconscious, patient unable to participate in evaluation Pain score: pain unable to be assessed Post Op nausea/vomiting: none Hydration status: euvolemic UETTE OPERATOR Anesthesia Preprocedure Evaluation - Tomás Arias M.D. - 07/15/2018 7:51 PM CST Anesthesia Pre-Evaluation Pertinent components of the patient's history including current problem list, medical history, surgical history, family history, social history, medications and allergies were reviewed and updated as appropriate. The patient was examined and the Pre-op diagnosis, planned procedure, and H&P were reviewed and remain unchanged. PROBLEM LIST Relevant Problems Other (+) Dysthymia (+) Major Laceration Spleen Initial OBJECTIVE PHYSICAL EXAMINATION Airway (HEENT) C-collar in place Mallampati: II Mouth Opening: >3 cm Cardiovascular Tachycardia Rhythm: Regular Pulmonary Pulmonary Assessment: Clear Neurological Neurologic Assessment:??alert Abdomen Distended, tender ASSESSMENT / PLAN ANESTHESIA PLAN ASA: 2 - Emergent Anesthesia Plan: general Patient seen and allergies reviewed; anesthesia plan and risks discussed directly with patient / legal guardian, or through an precision grinder; patient evaluated and approved for anesthesia / sedation. Use of blood products discussed with patient who consented to blood products. Emergency Exception: Emergent transfer to anesthesia care UETTE OPERATOR Anesthesia Procedure Notes - Oralia Fermin APRN, CRNA - 07/15/2018 7:15 PM CSTAssociated Order(s): JHOANA INVASIVE CATHETER Invasive Catheter Performed by: ORALIA FERMIN Authorized by: TOMÁS ARIAS Location: OR Pre-procedure prep: Appropriate hand hygiene, gown, cap, mask, protective eyewear, sterile gloves, skin preparation, sterile drape, and strict aseptic technique were utilized as applicable for the procedure.: yes Skin preparation: chlorhexidine Sedation/Anesthesia (see MAR for exact dosages): Anesthesia method: none Procedure details: Line type: arterial Laterality: right Location: radial Location details: new site Age group: adult Catheter diameter: 20 Ga Monitored: yes Number of attempts: 4 Post-procedure details: Procedure completed successfully: yes Line secured: secured with sutureless device Chlorhexidine disc around insertion site and under catheter with slight turn: yes Complications - arterial: none UETTE OPERATOR Anesthesia Procedure Notes - Oralia Fermin APRN, CRNA - 07/15/2018 7:14 PM CSTAssociated Order(s): AIRWAY MANAGEMENT Airway Date/Time: 07/15/2018 6:51 PM Patient location during procedure: OR / Procedure Area Performed by: ORALIA FERMIN Authorized by: TOMÁS ARIAS Pre procedure details Pre evaluation for airway management: procedure Urgency: elective Sedation level: anesthetized Preoxygenation: bag valve mask Procedure details Mask difficulty assessment: not attempted Final airway type: video laryngoscope Laryngeal Manipulation: no Final best view of glottic structures - Cormack/Lehane Score: grade 1 ETT location: oral VL device: glide scope Aguanga scope blade size: 3 Adult tube size: 7 Adult ETT distance at teeth/gum: 24 Oral tube type: standard ETT Cuffed: yes Number of attempt to successful placement: 1 Airway confirmation: bilateral breath sounds, positive ETCO2 and bilateral chest rise Other previous techniques attempted: none Post procedure details Procedure outcome: successful UETTE OPERATOR documented in this encounter Plan of Treatment Not on filedocumented as of this encounter Procedures Procedure Name Priority Date/Time Associated Comments Diagnosis LDA ANE ARTERIAL LINE Routine 07/15/2018 7:15 PM Results for this INSERTION BRIQUETTE OPERATOR procedure are i n the results section. ND ARTL CATH/CNULA Routine 07/15/2018 7:15 PM Res ults for this MONITOR PERC BRIQUETTE OPERATOR procedure are i n the results section. LDA ANE ENDOTRACHEAL Routine 07/15/2018 7:14 PM R esults for this AIRWAY BRIQUETTE OPERATOR procedure are i n the results section. documented in this encounter Results ND ARTL CATH/CNULA MONITOR PERC, LDA ANE ARTERIAL LINE INSERTION (07/15/2018 7:15 PM BRIQUETTE OPERATOR) Narrative Oralia Fermin APRN, CRNA - 07/15/19 19 7:15 PM BRIQUETTE OPERATOR Oralia Fermin APRN, CRNA ? 07/15/2018 ??7:16 PM Invasive Catheter Performed by: ORALIA FERMIN Authorized by: TOMÁS ARIAS Location: OR Pre-procedure prep: ??Appropriate hand hygiene, gown, cap, mask, protective eyewear, sterile gloves, skin preparation, sterile drape, and strict aseptic technique were utilized as applicable for the procedure .: yes ?Skin preparation: chlorhexidine ?? Sedation/Anesthesia (see MAR for exact d osages): ??Anesthesia method: none Procedure details: ??Line type: arterial ?Laterality: right ??Location: radial ??Location details: new site ?Age group: adult ??Catheter diameter: 20 Ga ??Monitored: yes ?Number of attempts: 4 Post-procedure details: ??Procedure completed successfully: yes ?Line secured: secured with sutureless device ??Chlorhexidine disc around insertion s ite and under catheter with slight turn: yes ?Complications - arterial: none Procedure Note Oralia Fermin APRN, CRNA - 07/15/19 19 7:15 PM CST Invasive Catheter Performed by: ORALIA FERMIN Authorized by: TOMÁS ARIAS Location: OR Pre-procedure prep: Appropriate hand hygiene, gown, cap, ma sk, protective eyewear, sterile gloves, skin preparation, sterile drape, and strict aseptic technique were utilized as applicable for the procedure.: yes Skin preparation: chlorhexidine Sedation/Anesthesia (see MAR for exact d osages): Anesthesia method: none Procedure details: Line type: arterial Laterality: right Location: radial Location details: new site Age group: adult Catheter diameter: 20 Ga Monitored: yes Number of attempts: 4 Post-procedure details: Procedure completed successfully: yes Line secured: secured with sutureless d evice Chlorhexidine disc around insertion sit e and under catheter with slight turn: yes Complications - arterial: none Tomás Arias M.D. PROCEDURE/MINOR SURGICAL ORD ERABLES LDA ANE ENDOTRACHEAL AIRWAY (07/15/2018 7:14 PM BRIQUETTE OPERATOR) Narrative Oralia Fermin APRN, CRNA - 07/15/19 19 7:14 PM BRIQUETTE OPERATOR Oralia Fermin APRN, CRNA ? 07/15/2018 ??7:15 PM Airway Date/Time: 07/15/2018 6:51 PM Patient location during procedure: OR / Procedure Area Performed by: ORALIA FERMIN Authorized by: TOMÁS ARIAS Pre procedure details ?? Pre evaluation for airway management : procedure ?? Urgency: elective ?? Sedation level: anesthetized ?? Preoxygenation: bag valve mask Procedure details ??Mask difficulty assessment: not attem pted ?? Final airway type: video laryngoscop e Laryngeal Manipulation: no ? Final best view of glottic structure s - Cormack/Lehane Score: grade 1 ?? ETT location: oral ?? VL device: glide scope ?? Aguanga scope blade size: 3 ?? Adult tube size: 7 ?? Adult ETT distance at teeth/gum: 24 ?? Oral tube type: standard ETT ?? Cuffed: yes ?? Number of attempt to successful plac ement: 1 ?? Airway confirmation: bilateral breat h sounds, positive ETCO2 and bilateral chest rise ?? Other previous techniques attempted: none Post procedure details ?? Procedure outcome: successful ?? Procedure Note Oralia Fermin APRN, CRNA - 07/15/19 19 7:14 PM CST Airway Date/Time: 07/15/2018 6:51 PM Patient location during procedure: OR / Procedure Area Performed by: ORALIA FERMIN Authorized by: TOMÁS ARIAS Pre procedure details Pre evaluation for airway management: p rocedure Urgency: elective Sedation level: anesthetized Preoxygenation: bag valve mask Procedure details Mask difficulty assessment: not attempt ed Final airway type: video laryngoscope Laryngeal Manipulation: no Final best view of glottic structures - Cormack/Lehane Score: grade 1 ETT location: oral VL device: glide scope Aguanga scope blade size: 3 Adult tube size: 7 Adult ETT distance at teeth/gum: 24 Oral tube type: standard ETT Cuffed: yes Number of attempt to successful placeme nt: 1 Airway confirmation: bilateral breath s ounds, positive ETCO2 and bilateral chest rise Other previous techniques attempted: no ne Post procedure details Procedure outcome: successful Tomás Arias M.D. ANESTHESIA ORDERABLES documented in this encounter Visit Diagnoses Not on filedocumented in this encounter Administered Medications Inactive Administered Medications - up to 3 most recent administrations Medication Order MAR Action Action Date Dose Rate Site calcium gluconate injection Given 07/15/2018 7:47 PM BRIQUETTE OPERATOR 1 g As needed, Starting on Sun07/15/18 at 1931, Anesthesia Intra-op Given 07/15/2018 7:46 PM BRIQUETTE OPERATOR 1 g Given 07/15/2018 7:31 PM BRIQUETTE OPERATOR 1 g ceFAZolin injection (ANCEF) Given 07/15/2018 7:26 PM BRIQUETTE OPERATOR 2 g As needed, Starting on Sun07/15/18 at 1926, Anesthesia Intra-op fentaNYL injection (SUBLIMAZE) Given 07/15/2018 7:40 PM BRIQUETTE OPERATOR 75 mcg intravenous, As needed, severe pain or score 7-10 of 10, Starting on Sun07/15/18 at 1850, Anesthesia Intra-op Given 07/15/2018 7:35 PM BRIQUETTE OPERATOR 25 mcg Given 07/15/2018 6:50 PM BRIQUETTE OPERATOR 150 mcg HYDROmorphone (PF) injection (DILAUDID) Given 07/15/2018 9:01 PM BRIQUETTE OPERATOR 1 mg As needed, severe pain or score 7-10 of 10, Starting on Sun07/15/18 at 1947, Anesthesia Intra-op Given 07/15/2018 8:53 PM BRIQUETTE OPERATOR 0.4 mg Given 07/15/2018 7:47 PM BRIQUETTE OPERATOR 0.6 mg lactated ringers New Bag 07/15/2018 9:07 PM BRIQUETTE OPERATOR intravenous, Continuous Infusion: Per Instructions PRN, Starting on Sun07/15/18 at 1841, Anesthesia Intra-op New Bag 07/15/2018 8:26 PM BRIQUETTE OPERATOR New Bag 07/15/2018 7:13 PM BRIQUETTE OPERATOR phenylephrine injection Given 07/15/2018 6:50 PM BRIQUETTE OPERATOR 200 mcg intravenous, As needed, Starting on Sun07/15/18 at 1850, Anesthesia Intra-op propofol 10 mg/mL infusion New Bag 07/15/2018 8:35 125 mcg/kg/min 52.7 mL/hr (DIPRIVAN) PM BRIQUETTE OPERATOR intravenous, Continuous Infusion: Per Instructions PRN, Starting on Sun07/15/18 at 2035, Anesthesia Intra-op propofol injection (DIPRIVAN) Given 07/15/2018 6:50 PM BRIQUETTE OPERATOR 120 mg intravenous, As needed, Starting on Sun07/15/18 at 1850, Anesthesia Intra-op sodium bicarbonate injection Given 07/15/2018 7:40 PM BRIQUETTE OPERATOR 100 mEq As needed, Starting on Sun07/15/18 at 1940, Anesthesia Intra-op succinylcholine-0.9% NaCl (PF) injection Given 07/15/2018 6:50 P M BRIQUETTE OPERATOR 80 mg (ANECTINE) intravenous, As needed, Starting on Sun07/15/18 at 1850, Anesthesia Intra-op sugammadex injection (BRIDION) Given 07/15/2018 9:04 PM BRIQUETTE OPERATOR 200 mg As needed, Starting on Sun07/15/18 at 2104, Anesthesia Intra-op Transfuse autologous RBC (Cell Salvage) : New Bag 07/15/2018 7:23 PM BRIQUETTE OPERATOR Routine Transfuse autologous RBC (Cell Salvage) : New Bag 07/15/2018 7:31 PM BRIQUETTE OPERATOR Routine Transfuse autologous RBC (Cell Salvage) : New Bag 07/15/2018 7:53 PM BRIQUETTE OPERATOR Routine Transfuse Emergency Released Platelets New Bag 07/15/2018 7:22 PM BRIQUETTE OPERATOR Routine vecuronium injection (NORCURON) Given 07/15/2018 7:05 PM BRIQUETTE OPERATOR 6 mg As needed, Starting on Sun07/15/18 at 1905, Anesthesia Intra-op documented in this encounter Additional Health Concerns Assessment Noted Time PHQ-9 Depression Total Score: 2 02/19/2014 2:58 PM CDT documented as of this encounter
--- OUTSIDE RECORDS SUMMARY | 2022-01-18 13:30 | XMS_ITS | Encounter Summary ---
:[address] [facility] Address [address] [place] [address] Care Team Providers Name Role Phone Unavailable Primary Care Provider Unavailable Reason for Referral Outpatient (Routine) - Closed Specialty Diagnoses / Procedures Referred By Contact Refer red To Contact Diagnoses Decline Functional Status Debility Pneumothorax Trauma Initial Vincent Cruz APRN, C.N.Chang, D.N.P. [address] [place] [phone] Referral ID Status Reason Start Date Expiration Date Visits Requ ested Visits Authorized [id number] Closed 07/24/2018 07/24/2019 1 1 ISHER Outpatient (Routine) - Closed Specialty Diagnoses / Procedures Referred By Contact Refer red To Contact Trauma Critical Care Salty Hernandez, Dara [facility] and General Surgery Nadir WILKESN.Chang, M.S.N. [address] [place] [phone] Referral ID Status Reason Start Date Expiration Date Visits Requ ested Visits Authorized [id number] Closed 07/22/2018 07/22/2019 1 1 Scheduling Instructions Trauma service, follow up in clinic in 2 weeks for rib Fx f/u and abdominal wound check. Will need to repeat Chest X ray p rior to this appointment. ISHER Reason for Visit Reason Comments Fall Encounter Details Date Type Department Care Team Description 07/15/2018 - [facility] Irma De Luna Jr., M.D. [address] [place] [phone] Major Laceration Spleen Initial (Primary Dx); 07/22/2018 Encounter [facility] [address] [place] [phone] Decline Functional Status; [facility], Hayden Matthew M.D. [address] [place] [phone] Effusion Pleural; [facility], Debility; Fourth Floor Hemothorax Trauma Initial; [address] [facility] Pneumothorax Trauma Initial; [place], [place] Fracture Rib M ultiple Closed Initial Left [id number] Social History Tobacco Use Types Packs/Day Years Used Date Smoking Tobacco: Former Sex Assigned at Date Recorded Female 07/31/2018 2:58 PM PLANISHER documented as of this encounter Last Filed Vital Signs Vital Sign Reading Time Taken Comments Blood Pressure 135/62 07/22/2018 6:30 PM PLANISHER Pulse 88 07/22/2018 6:30 PM PLANISHER Temperature 36.3 ??C (97.3 ??F) 07/22/2018 6:30 PM PLANISHER Respiratory Rate 16 07/22/2018 6:30 PM PLANISHER Oxygen Saturation 99% 07/22/2018 6:30 PM PLANISHER Inhaled Oxygen Concentration - - Weight 76.6 kg (168 lb 14 oz) 07/22/2018 8:00 AM PLANISHER Height 170 cm (5' 6.93) 07/16/2018 8:00 AM PLANISHER Body Mass Index 26.51 07/16/2018 8:00 AM PLANISHER documented in this encounter Discharge Summaries Salty Hernandez APRN, C.N.P., M.S.N. - 07/22/2018 7:17 PM CST DISCHARGE SUMMARY BRIEF OVERVIEW Discharge Provider: Hayden Matthew M.D. No primary care provider on file. Primary Care Provider Phone Number: None Primary Care Provider Fax Number: None Admission Date: 07/15/2018 Discharge Date: 07/22/2018 PRINCIPAL DIAGNOSIS Major Laceration Spleen Initial SECONDARY DIAGNOSES Principal Problem: Major Laceration Spleen Initial Active Problems: Pneumothorax Trauma Initial Fracture Rib Multiple Closed Initial Left Anemia Posthemorrhagic Acute (Blood Loss Anemia) Splenectomy Total Status Post Hemothorax Trauma Initial Abnormal Computed Tomography Hypophosphatemia Resolved Problems: Hypovolemic Shock (HCC) Acute Respiratory Failure With Hypoxia (HCC) Operative Procedures: Scheduled ([place]), Completed (Comp) or Canceled (Can) Case IDs Date Procedure Surgeon Location Status [id number] 07/15/18 Splenectomy Lourdes Brown M.D. RST ROMB OR Comp DISCHARGE DISPOSITION Home-Health Care [facility] [6] ACTIVE ISSUES REQUIRING FOLLOW UP 1. PCP follow up for splenic vaccinations updates. 2. 2 week trauma follow up for rib fractures, CXR, and abdominal wound check. 3. Left chest wall suture removal on or around 07/30/18. This will be performed by Home Health Care agency. OUTPATIENT FOLLOW UP Future Appointments Date Time Provider Department Center 08/06/2018 10:15 AM DX ROAL RM 422 SMOP RAD DX ROAL RST Spec 08/06/2018 11:00 AM [facility] CLINIC RECHECK 01 ROMB TCGS ROMB RST Spec DETAILS OF HOSPITAL STAY REASON FOR ADMISSION Major Laceration Spleen Initial HOSPITAL COURSE Mechanism of injury: Fall from standing Yarelis Painting is a 67 year-old female who presented to [facility] via ground ambulance afteraccidental slip and fall on ice on 07/15/2018, complaining of left rib pain. Outside emergency department evaluation demonstrated multiple left rib fractures, (3-8 with displacement of 4-6) with splenic laceration and small pneumothorax by CT imaging. She was found to be hypotensive, and received blood transfusion. She reportedly received 2 units red blood cells (pRBC) and norepinephrine infusion prior to arrival at [facility] Emergency Department via EMS transfer. She was found to be hypotensive upon arrival in the resuscitation bay after level red trauma alert. Massive transfusion was initiated, and she was rapidly transferred to the operating room for splenectomy. Intraoperatively, she received fluid resuscitation and additional transfusion of blood products.One surgical drain was placed in the left mid-abdominal region. She remained intubated postoperatively, and was transferred to the [facility] SICU without overt hemodynamic instability. A tertiary survey was performed on 07/16/18 which revealed no new injuries. On 07/18/18, the patient was stable and was transferred to the floor for continued care. Physical therapy was consulted to assist with mobilization. Shuttle Van Driver was also consulted to assist with possible placement/therapy needs. When the patient was tolerating a regular diet, her pain was well controlled on oral medications, her bowel and bladder function were deemed acceptable, and she was they were mobilizing safely with physical therapy with a walker, the patient was dismissed to home with home health cares on 07/22/18. She will require home health care upon dismissal to assist with ongoing therapy needs. Patient qualifies for [facility] due to requiring a new gait aid, assist of another person, and it would be a taxing effort to leave her home. Home therapy interventions may include: Therapeutic exercise, Therapeutic functional activity, Neuromuscular re-education, Self-care/home management, and Gait training. #1 Major Laceration Spleen Initial #2 Splenectomy Total Status Post CT imaging obtained in outside hospital showed a grade 4 splenic laceration with active bleeding caden large amount of blood in the abdominal cavity. Prior to transfer, she was found to be hypotensive and received intravenous fluids and blood products. After initial evaluation in the trauma [place] massive blood transfusion was initiated and the patient was taken to the operating room for exploratory laparotomy, splenectomy, and hemostasis. Postoperatively she was transferred to the surgical intensive care unit (SICU). Laboratory studies were closely monitored in the postoperative setting without signsof ongoing bleeding. The patient had a surgically placed BERNY drain which was removed on 07/21/18 when the drain outputs were acceptable. Splenic vaccinations were administered on 07/22/18. SPLENIC VACCINATIONS: You received the following vaccinations while hospitalized: (MVC4/Menactra) Meningoc vac a,c,y,w-135 diptheria, on 07/22/18 (Men B/Bexsero) Meningococcal vac b, on 07/22/18 (Hib) haemophilus B conjugate, on 07/22/18 YOU WILL NEED TO HAVE A REPEAT MENINGOCOCCAL VACCINATION (Menactra and Bexsero) in 8 weeks, AND THEN A (Menactra Booster) EVERY 5 YEARS TIME DUE TO YOUR SPLENECTOMY. You will need to schedule these with your primary care provider Patient had previously received a pneumococcal vaccination (PPSV23) on 10/14/2014. YOU WILL NEED TO HAVE A REPEAT PNEUMOCOCCAL VACCINATION (PPSV23) EVERY 5 YEARS DUE TO YOUR SPLENECTOMY. Please schedule this vaccination with your primary care provider You need an annual influenza vaccination The patient will have an abdominal wound recheck at her two week rib fracture follow up with the Trauma Service. #3 Fracture Rib Multiple Closed Initial Left #4 Pneumothorax Trauma Initial Imaging studies noted fractures left 3rd through 8th ribs with a flail segment the 4th through 8th ribs. The patient was intubated prior to transfer and remained intubated operative intervention and transferred to SICU. On July 13 the patient was successfully extubated. Respiratory status was monitored closely in 3D imaging was obtained for possible chest wall stabilization. Respiratory therapy was consulted to perform pulmonary testing. Initial imaging had a left apical pneumothorax, this was closely monitored and on 07/18 a chest tube was placed for decompression. The patient was instructed on aggressive pulmonary hygiene with deep breathing, coughing, and incentive spirometry. Pain was controlled to allow for this. Daily chest x-rays were monitored to assess respiratory status. As the patient progressed non operative management was elected. With resolution pneumothorax chest tube was transferred to [facility] and when drainage had decreased subsequently removed on 07/20/18. The patient will follow up in trauma outpatient clinic in approximately 2 weeks for further evaluation and chest x-ray. The patient has two sutures in place in the left chest tube insertion site that will need to be removed on or around 07/30/18. Suture removal can be performed by a visiting nurse from her [facility]. #5 Hypovolemic Shock (HCC) #6 Anemia Posthemorrhagic Acute (Blood Loss Anemia) Patient received blood transfusion at outside facility and was started on medication to assist with increasing blood pressures during transportation. Upon arrival at [facility] massive bloodtransfusion protocol was initiated and the patient was taken to the operating room where she underwent splenectomy and bleeding was stopped. Postoperatively, her blood pressure and hemoglobin remained stable. Hemoglobin on dismissal was 14.6 #7 Acute Respiratory Failure With Hypoxia (HCC) The patient was intubated at an outside facility and remained intubated through a initial operative course. On 07/16 she was extubated by the surgical intensive care unit without complication. Respiratory status was continuously monitored. Serial chest x-rays were followed with improvement. #8 Hypophosphatemia Electrolytes were monitored and repleted as necessary while hospitalized. CONSULTS ORDERED DURING THIS ADMISSION IP CONSULT TO PHYSICAL MEDICINE & REHABILITATION IP CONSULT TO CARE MANAGEMENT CONDITION AT DISCHARGE improved, good, stable Discharge instructions were provided to the patient and caregiver(s). ISHER documented in this encounter Discharge Instructions Discharge Instr - ActivityLydia Norris P.T., D.P.T. - 07/19/2018 4:19 PM CST Physical Therapy Discharge Summary MOBILITY RESTRICTIONS/PRECAUTIONS: Precautions Other Precautions: rib fracture protocol, pain, fall risk, new respiratory. Neck brace cleared by team / CURRENT FUNCTIONAL STATUS: Bed Mobility-Supine to Sit # of Assistants: 1 Level of Assistance: Moderate assistance Device: Other (head of bed elevated) Cuing: Verbal;Tactile Transfer-Sit to Stand # of Assistants: 1 Device: Front wheeled walker Level of Assistance: Modified Independent Gait Assessment # of Assistants: 1 Level of Assistance: Minimal assistance Device: Front wheeled walker Distance (m): 25 m Surface: level tile, slipper socks Cuing: Verbal (cues for upright posture, deeper breathing as able) Quality: Guarding;Shuffling;Decreased toe off;Decreased heel strike;Decreased base of support Stairs # of Assistants: 1 Level of Assistance: Minimal assistance (contact guard assist, recommend hold patient's handinto the home.) # Stairs: 3 Rails: None (braced self on wall) Device: No device RECOMMENDATIONS: PT Evaluate and Treat; frequency and duration to be determined by evaluating therapist. {follow up locations (Optional):[id number]} Discharge information provided on 07/22/2018 Contact information: [facility], [address] [facility]: [phone] ISHER documented in this encounter Medications at Time of Discharge [...] in 240 mLs (8 ounces) of beverage. pregabalin (LYRICA) 75 mg Take 1 capsule (75 9 capsule 0 capsule mg total) by mouth 2 (two) times a day for 9 doses. sennosides-docusate Take 2 tablets by 0 9 sodium (SENOKOT-S) 8.6-50 mouth 2 (two) times mg per tablet a day. traMADol (ULTRAM) 50 mg Take 1 tablet (50 mg 12 tablet 0 07/23/2018 tabletIndications: Acute total) by mouth Pain every 6 (six) hours as needed for moderate pain or score 4-6 of 10 (second line option for pain, pain not controlled by tylenol alone) Indications: Acute Pain. documented as of this encounter Progress Notes Salty Hernandez APRN, C.N.P., M.S.N. - 07/22/2018 4:04 PM CST After further review of the Splenic Injury PMG and discussion with Dr. Martinez, the patient does not require a [address] abd/plevis or Hgb check as she is asplenic. She will have a abdominal wound check at her two week rib fracture follow up with CXR. ISHER Lala Bailey L.G.S.W., M.S.W. - 07/22/2018 12:17 PM CST SUBJECTIVE Referral Data Referral Source: Provider/Service Referral Reason: Psychosocial assessment, Coping, adjustment and support, Discharge Planning The patient was seen for ongoing discharge needs. A list of home health care options (that patient/family geographically resides or requests) has been provided to and reviewed with patient/family. Disclaimers: Financial disclosure provided informing patient of our ownership and financial relationship of the [facility]/home health & hospice agencies. Reviewed insurance coverage, provided patient with in-network options if applicable. Patient/family have indicated a preference for the facility/agency below. patient and family declined additional resources. OBJECTIVE Anticipated modifications to the home environment: Patient reports no anticipated modifications needed to the home Patient requires the following additional equipment upon dismissal: Per PT/OT recommendations ASSESSMENT / PLAN Assessment The patient/family appear to have insight into the patient's needs at this time and are planning appropriately for discharge needs. The patient/family report agreement with the below plan with no further questions at this time. Plan Patient to discharge home with home health care. Home Medical Care - Selection Complete Service Request Status Selected Specialties Address Phone Number Fax Number [facility] Selected Home Health Services [address] [facility] [phone] Batch Records Clerk: Intake NURSING: - Complete documentation in the Discharge Navigator including Nursing Report Info and Facility/NextLevel of Care Info - Call report and arrange for the patient's first visit - Send After Visit Summary and required packet of dismissal information with patient, including advance directive. PRIMARY SERVICE: - Please provide an order for: senior care care, suture removal and fitness consultant, physical therapy and occupational therapy in the After Visit Summary. - Communicate with the patient's local primary care provider by telephone for writing of home care orders. This needs to be done to help prevent discharge delays. A copy of the After Visit Summary needs to be sent there as well. SOCIAL WORK: -Will continue to follow for ongoing discharge planning needs. Chai Mederos, M.SAlfonzo. 07/22/2018 ISHER Lydia Norris P.T., Ingrid.P.T. - 07/22/2018 10:20 AM CST Physical Therapy Inpatient Treatment Note SUBJECTIVE Patient's Name: Yarelis Painting Referring/Attending: Hayden Matthew M.D. Medical Diagnosis: Major Laceration Spleen Initial [S36.032A] Major Laceration Spleen Initial [S36.032A] Reason for Referral: PT Evaluate and Treat Payor: MEDICARE / Plan: MEDICARE A AND B / Product Type: Medicare / Patient Comments: Patient has no complaints of pain until she reaches with her left UE. Activity Orders Start Ordered 07/20/18 0630 Activity: Up to Chair Until discontinued Comments: For all meals Question: Activity Level: Answer: Up to Chair 07/20/18 0629 Precautions Other Precautions: rib fracture protocol, pain, fall risk, new respiratory. Neck brace cleared by team /6 OBJECTIVE Vitals not assessed. Treatment consisted of: Transfer - Sit to Stand Device: Front wheeled walker Level of Assistance: Modified Independent Transfer - Stand to Sit # of Assistants: 1 Level of Assistance: Modified Independent Device: Front wheeled walker Endurance Ambulation # of Assistants: 1 Level of Assistance: Modified Independent Device: Front wheeled walker Distance: 50 Meters Quality: Antalgic, Trendelenburg Comments: slow alireza, forward flexed posture, guarding Stairs # of Assistants: 1 Level of Assistance: Minimal assistance (contact guard assist, recommend hold patient's handinto the home.) # Stairs: 3 Rails: None (braced self on wall) Device: No device Education provided this session: Educated patient on use of front wheeled walker at all times, and assistance from for steps. The Patient's nurse was contacted regarding discharge/safety recommendations, The AVS was updated and InBasket was sent regarding home health therapy recommendation Patient was left in bedside chair at end of session with call light in reach, all needs met and questions answered. Outcome Measures Storm: 1. Sitting to Standing: Able to stand without using hands and stabilize independently 2. Standing Unsupported: Able to stand safely for 2 minutes 3. Sitting with Back Unsupported but Feet Supported on Floor or on a Stool: Able to sit safely and securely for 2 minutes 4. Standing to Sitting: Controls descent by using hands 5. Transfers: Able to transfer safely definite need of hands 6. Standing Unsupported with Eyes Closed: Able to stand 10 seconds safely 7. Standing Unsupported with Feet Together: Able to place feet together independently and stand 1 minute safely 8. Reach Forward with Outstretched Arm While Standing: Can reach forward 5 cm (2 inches) 9. Cafe Associate Object from Floor from a Standing Position: Unable to cotton picking machine operator but reaches 2-5 cm (1-2 inches) from slipper and keeps balance independently 10. Turning to Look Behind Over Left and Right Shoulders While Standing: Looks behind from both sides and weight shifts well 11. Turn 360 Degrees: Able to turn 360 degrees safely but slowly 12. Place Alternate Foot on Step or Stool While Standing Unsupported: Able to complete greater than 2 steps needs minimal assist 13. Standing Unsupported One Foot in Front: Loses balance while stepping or standing 14. Standing on One Leg: Unable to try needs assist to prevent fall Storm Balance Score: 37 AM-[facility] Inpatient Short Form: Interpretation: Clinicians answer the -[facility] Inpatient Short Form based on observed patient activityand/or clinical judgement (ie. patient can be scored without physically performing each activity) According to scoring guidelines: Those going to home had an average score of 20.1 Those going home with home care had an average score of 17.9 Those going to SNF had an average score of 14 Those going to IRF had an average score of 13.6 Those going to a LTAC had an average score of 11.5 Assessment Barriers to Discharge: None Discharge Recommendation: Intermittent supervision (Home Health Physical Therapy) Equipment Recommended PT: Walker Recommendation: Home PT From a physical therapy perspective, the level of care above has been recommended for Ms. Painting after hospital discharge. This level of care is based on her functional abilities during today's session. This may change throughout the hospital course and will be updated as appropriate. Clinical Impression of today's session: Patient willing for therapy and demonstrates significant improvement with mobility. She is able to safety ambulate with front wheeled walker. Patient scored a 37/56 on the Storm balance scale. Accordingto scoring guidelines, people who score 45 or less are at an increased risk for falls (2.7 times greater than normal).Based on score (34-44), our recommendation for balance compensation is: Use a cane at all times. Recommend a front wheeled walker until PT can progress her to cane vs no gait aid. Patient appears safe to return home with her who is in good health. She is modified independent with mobility, hand held assistance for the steps. Recommend home health physical therapy to continue to work on balance, gait training, strengthening, postural training, and stair training. Patient qualifies for [facility] due to requiring a new gait aid, assist of another person, and would be a taxing effortto leave her home. Rehab potential: Ms. Painting has Good potential to achieve established physical therapy goals within the time frame outlined below. Functional Goals and Timeframes: PT Inpatient Goals PT Goal #1: Goal met. Patient will complete rolling and supine to/from sit with modified independence to demonstrate improved functional independence. PT Goal #2: Goal met. Patient will complete sit to/from stand with modified independence, least restrictive gait aid, to demonstrate improved functional independence. PT Goal #3: Goal Met. Patient will ambulate 45m with modified independence, least restrictive gait aid, to demonstrate improved functional independence. PT Goal #4: Patient will negotiate 2 steps with no railing, least restrictive gait aid, to demonstrate improved functional independence and work toward homegoing. Progress: Progressing toward goals Plan Treatment Plan: Plan: Continue with current plan PT Frequency: 5x/week PT Duration: Until goals met or hospital discharge. Requires Inpatient Follow-Up: Yes PT - Next Inpatient Appointment: 07/23/18 Plan Comments: Progress gait without fww, posture retraining, stair training, and hip strengthening. Treatment interventions may include: Therapeutic exercise, Therapeutic functional activity, Neuromuscular re- education, Self-care/home management, Gait training Billing: Time Spent with Patient Physical Performance Testing (min): 15 min Therapeutic Activity (min): 10 min Total Timed Units (min): 25 min Total Treatment Time (min): 25 min Functional G-code Worksheet Lydia Norris P.T., D.P.T. ISHER Salty Hernandez APRN C.N.P., M.S.N. - 07/22/2018 6:52 AM CST Trauma Daily Progress Note (Adult) Admission Date/Time: 07/15/2018 6:26 PM SUBJECTIVE: Ms. Painting is currently hospital day 7. No acute events overnight. Improved pain control in the left chest wall following chest tube removal 2 days ago. Abdominal BERNY drain removed yesterday. She continues to tolerate a general diet without concerns. Voiding spontaneously making adequate urine. Improved mobilization around the care unit with the use of a front wheeled walker. REVIEW OF SYSTEMS: Negative for nausea. Negative for vomiting. Negative for diarrhea. Negative for abdominal pain. Positive for mild left chest wall discomfort. Negative for shortness of breath. Lab Review: Recent Results (from the past 24 hour(s)) BMP (Basic Metabolic Panel) Collection Time: 07/22/18 8:20 AM Result Value Potassium, S 4.7 Sodium, S 142 Chloride, S 102 Bicarbonate, S 27 Anion Gap 13 Bld Urea Nitrog(BUN), S 12 Creatinine, S 0.54 (L) eGFR-Non Black >90 eGFR-Black >90 Calcium, Total 9.2 Glucose, S 126 CBC without Differential Collection Time: 07/22/18 8:20 AM Result Value Hemoglobin 14.6 Hematocrit 45.9 (H) Erythrocytes 5.01 MCV 91.6 RBC Distrib Width 15.2 Platelet Count 415 (H) Leukocytes 7.7 Phosphorus Inorganic Collection Time: 07/22/18 8:20 AM Result Value Phosphorus (Inorganic), S 3.0 Vital Signs: BP 121/57 (BP Location: Left arm, Patient Position: Lying) Pulse 77 Temp 36.7 ??C (Axillary) Resp 15 Ht 170 cm Wt 76.2 kg SpO2 95% BMI 26.37 kg/m?? Temperature: [36.4 ??C-37.1 ??C] 36.7 ??C Heart Rate: [92] 92 Resp Rate: [15-16] 15 Blood Pressure: (121-132)/(57-82) 121/57 FiO2 (%): [21 %] 21 % SpO2: [95 %-96 %] 95 % Pulse Rate: [77-92] 77 I/O 07/20 0701 - 07/21 0700 07/21 0701 - 07/22 0700 P.O. 600 1760 Total Intake(mL/kg) 600 (7.8) 1760 (23.1) Urine (mL/kg/hr) 2150 (1.2) 950 (0.5) Drains 25 Chest Tube 30 Total Output 2205 950 Net -1605 +810 Unmeasured Urine Occurrence 1 x Unmeasured Stool Occurrence 1 x 1 x PHYSICAL EXAM: Constitutional: No distress. Cardiovascular: Normal rate, regular rhythm, normal heart sounds and normal pulses. Pulmonary/Chest: Effort normal and breath sounds normal. No respiratory distress. Oxygen saturations are appropriate on room air, left chest wall tube thoracotomy site is well approximated with x2 sutures and is without evidence of infection Abdominal: Soft. Bowel sounds are normal. She exhibits no distension. There is no tenderness. Midline surgical incision is well approximated without evidence of infection, left abdominal BERNY drain site with a small amount of erythema present without drainage or tenderness Neurological: She is alert. Skin: Skin is warm and dry. Capillary refill takes less than 2 seconds. Left chest wall skin irritation from tape adhesive Psychiatric: She has a normal mood and affect. Judgment normal. Cognition and memory are normal. Imaging: Dx Chest Portable 1 View Result Date: 07/21/2018 Impression: IMPRESSION: Since 07/20/2018, removal of the left chest tube. Otherwise, no significant change. Tiny residual left apical pneumothorax. Small left pleural effusion. Left basilar atelectasis or consolidation. Multiple left rib fractures. Bilateral cervical ribs. Consult Orders: IP CONSULT TO PHYSICAL MEDICINE & REHABILITATION IP CONSULT TO CARE MANAGEMENT ASSESSMENT / PLAN: - Current Diet Adult Diet Regular: General starting at 07/17 0646 Activity/Exercise: As tolerated, up with assistance and walker for stability - VTE Prophylaxis/Therapy: ??Lovenox 30 mg subcutaneous BID - Bowel Regimen: ??Senna/docusate, MiraLax, Bisacodyl suppository - GI Prophylaxis: ??Lactobacillus rhamnosus - Void: Natural/spontaneous - Pain: ??Lidocaine patch, Tramadol, Lyrica, oxycodone - Antibiotics: ??None - Dressing: ??Left chest tube site, pleaser use KIND tape only - Cultures: ??None - Disposition: General cares, PT/OT will reassess today for dismissal to home versus a skilled facility, patient is medically ready for dismissal today ?? Mechanism of Injury:?? Fall on ice ?? #1 Fracture Rib Multiple Closed Initial Left #2 Pneumothorax Trauma Initial #3 Hemothorax Trauma Initial Left 3-8 lateral, and 4-8 posterior rib fractures with flail segment of??left ribs 4-8. - CXR this morning is stable. - Chest tube discontinued 07/20/18. Post pull chest x-ray with tiny residual left apical pneumothorax. - 07/22/18 AM chest x-ray pending. - Patient has two sutures in place at the chest tube insertion site that will need to be removed on 07/30/18. - Encourage aggressive pulmonary hygiene with deep breathing, coughing and use of incentive spirometer at least 10 times per hour while awake. - Continue CPAP TID and QHS. Chest physiotherapy. - Pain control as outlined above. Lyrica x7 day course, as patient reports dizziness with Gabapentinadministration. ? - Non-pharmacologic treatment modalities: distraction, guided imagery, ice/heat application, pillows/blankets for splinting, positioning (elevate head of bed, seated in recliner; NOT lying flat). - Will require 2 week rib fracture follow up with a status check AP/Lat chest x-ray. ?? 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 - Surgical BERNY drain discontinued 07/21/18. - Midline incision closed;??monitor for s/s of infection. - Hgb remained stable 14.6/14.0. ?? - Splenic vaccinations will need to be given 2 weeks post-operation (on 07/29/18) or day of dismissal, whichever is sooner. - Will require follow-up IV contrast CT of the abdomen and pelvis in 4 weeks following trauma, and [facility] check. ? #6 Dysthymia - Home Sertraline. ? Please feel free to page the Trauma Service at [phone] with any questions in regards to the plan of care. ISHER Associated attestation - Giuliano Martinez M.D. - 07/22/2018 12:12 PM PLANISHER I evaluated and examined the patient along with the trauma team and agree with the findings, assessment, and plan in the note below from today's date. No complaints. She is interested in the PT OT assessment prior to deciding about going home versus SNF. She is walking 150 feet now with a walker. She also has a walker at home. Chest tube removed. ROS 11 system review negative except as indicated elsewhere PE Afebrile. Hemodynamics satisfactory. General: In no distress. Resting comfortably in bedside chair. Pulmonary: Normal work of breathing. In no respiratory distress. Chest tube removal site clean and intact. She has some sutures in place. Removed dressing. Abdomen: Soft and nondistended. Midline wound clean dry and intact. Old drain site a bit erythematous. Psychiatric: Normal mood and behavior. LABS Reviewed Hb 14.6. WBC 7.7. Cr 0.54. IMAGING Reviewed CXR clear. A/P PT/OT assessment today. She overall appears ready for d/c home. Await PT/OT assessment for need for skilled care. Splenic immunizations prior to discharge. Swetha Hester P.A.-C. - 07/21/2018 1:20 PM CST Trauma Screening and Brief Intervention Screen applied: Audit-C Was intervention required: yes Intervention(s) discussed with patient: Manage drinking, Eliminate drinking, Never drink and drive and Seek counseling Intervention(s) patient will follow through on: Manage drinking, Eliminate drinking, Never drink anddrive and Patient refuses to seek counseling. She states that she will discuss with her primary careprovider if she needs counseling in the future. Additional referrals made: none Time Spent: Billing codes: 85528 (15-30 mins SAS1) ISHER Swetha Hester P.A.-C. - 07/21/2018 10:50 AM CST Trauma Daily Progress Note (Adult) Admission Date/Time: 07/15/2018 6:26 PM SUBJECTIVE: Ms. Painting is currently hospital day 6. Patient is seen and examined by Trauma service this morning. Left sided chest tube removed yesterday. Patient reports her left chest wall pain is slowly getting better. Tolerating a diet. Has normal bowel function. Voiding spontaneously with adequate urine. Denies N/V, fever, chills, shortness of breath, or leg pain. She is mobilizing well on the floor with assist x1 and a walker. She continues to use IS and [employer]. REVIEW OF SYSTEMS: Positive for left chest wall discomfort. Negative for dyspnea. Vital Signs: BP 128/69 Pulse 85 Temp 36.9 ??C (Oral) Resp 16 Ht 170 cm Wt 77.2 kg SpO2 96% BMI 26.71 kg/m?? Temperature: [36.3 ??C-37.1 ??C] 36.9 ??C Heart Rate: [87-92] 92 Resp Rate: [14-16] 16 Blood Pressure: (119-135)/(60-82) 128/69 SpO2: [94 %-96 %] 96 % Pulse Rate: [79-93] 85 I/O / 0701 - / 0700 / 07 - 07/20 0700 / 0701 - 07/21 0700 P.O. 1050 500 240 Intermittent Medications 620 Total Intake(mL/kg) 1670 (22) 500 (6.5) 240 (3.1) Urine (mL/kg/hr) 1750 (1) 1050 (0.6) 600 (1.8) Drains 87 20 Chest Tube 345 75 Total Output 2182 1145 600 [facility]512 -645 -360 Unmeasured Urine Occurrence 1 x 3 x PHYSICAL EXAM: Constitutional: She is oriented to person, place, and time. She appears well- developed and well-nourished. No distress. Eyes: Conjunctivae are normal. Neck: Neck supple. Pulmonary/Chest: Effort normal. No apnea. No respiratory distress. Tenderness: very mild TTP in leftchest wall. Left sided chest tube removed on 07/20/2018. The site is clean and dry. Abdominal: Soft. She exhibits no distension. Midline surgical incision is well approximated with subcuticular closure. No evidence of infection. Left abdominal BERNY drain to bulb suction with serosanguinous drainage, non bilious. Neurological: She is alert and oriented to person, place, and time. Skin: Skin is warm and dry. Psychiatric: She has a normal mood and affect. Nursing note and vitals reviewed. Imaging: EXAM: DX CHEST PORTABLE 1 VIEW ??Result Date: 07/21/2018?? IMPRESSION: Since 07/20/2018, removal of the left chest tube. Otherwise, no significant change. Tiny residual left apical pneumothorax. Small left pleural effusion. Left basilar atelectasis or consolidation. Multiple left rib fractures. Bilateral cervical ribs. Dx Chest Portable 1 View Result Date: 07/20/2018 Impression: IMPRESSION: Since 07/19/2018, further decrease in size of the tiny left apical pneumothorax. Otherwise, no significant change. Left chest tube. Small left pleural effusion. Left basilar atelectasis or consolidation. Multiple left rib fractures. Bilateral cervical ribs. Lines, Drains, and Airways Drain Closed/Suction Drain Abdomen Bulb 19 Fr. 5d 14h days Chest Tube 1 Pleural 2d 20h days Consult Orders: IP CONSULT TO PHYSICAL MEDICINE & REHABILITATION IP CONSULT TO CARE MANAGEMENT ASSESSMENT / PLAN: ?? Mechanism of Injury: Fall on ice ?? #1 Fracture Rib Multiple Closed Initial Left #2 Pneumothorax Trauma Initial #3 Hemothorax Trauma Initial Left 3-8 lateral, and 4-8 posterior rib fractures with flail segment of left ribs 4-8. - CXR this morning is stable. - Encourage aggressive pulmonary hygiene with deep breathing, coughing and use of incentive spirometer at least 10 times per hour while awake. - Continue CPAP TID and QHS. - Pain control as outlined above. Lyrica x7 day course, as patient reports dizziness with Gabapentinadministration. - Non-pharmacologic treatment modalities: distraction, guided imagery, ice/heat application, pillows/blankets for splinting, positioning (elevate head of bed, seated in recliner; NOT lying flat). - Will require 2 week rib fracture follow up with a status check AP/Lat chest x-ray. #4 Major Laceration Spleen Initial #5 Anemia Posthemorrhagic Acute (Blood Loss Anemia) Grade 4 splenic laceration s/p open splenectomy on 07/15/18. - BERNY drain remains in place to bulb suction. Continue to monitor output character and volume. Outputhas been remaining low so it can be discontinued today. - Midline incision closed;??monitor for s/s of infection. - Hgb stable. Continue to monitor. Transfuse if hemoglobin less than 7 or if symptomatic in this regard. - Splenic vaccinations will need to be given 2 weeks post-operation (on 07/29/18) or day of dismissal, whichever is sooner. - Will require follow-up IV contrast CT of the abdomen and pelvis in 4 weeks following trauma, and aHgb check. ? #6 Dysthymia - Home Sertraline. Plan: - Adult Diet Regular: General starting at 07/17 0646 - Activity/Exercise: As tolerated, up with assistance and walker for stability - VTE Prophylaxis/Therapy: Lovenox 30 mg subcutaneous BID - Bowel Regimen: Senna/docusate, MiraLax, Bisacodyl suppository - GI Prophylaxis: Lactobacillus rhamnosus - Void: Natural/spontaneous - Pain: Lidocaine patch, Tramadol, Lyrica, oxycodone - Antibiotics: None - Dressing: Left chest tube site. Patient has two sutures in place at the chest tube insertion site that will need to be removed in 7-10 days. - Cultures: None - Disposition: General cares, dismissal pending timing of senior care facility versus rehab placement, anticipate readiness for dismissal on Sunday07/22/18 ?? Please feel free to page the Trauma Service at [phone] with any questions in regards to the plan of care. Rashmi Jiménez R.R.T., L.R.T. - 07/21/2018 10:10 AM CST 07/21/18 1000 BPAP/CPAP Therapy BPAP/CPAP Interface Full face mask BPAP/CPAP Interface Size Medium $BPAP/CPAP Yes Ventilator Parameters BPAP/CPAP Mode CPAP Hyperinflation therapy cpap 10 , during the day and at night Hayden Patricio M.D. - 07/21/2018 9:21 AM CST Patient seen and evaluated with the trauma team. Doing well following removal of left-sided tube thoracostomy Small apical pneumothorax on chest x-ray without redevelopment left pleural effusion Left upper quadrant drain remains serosanguineous, and non pancreatic in output. Low volume. Plan: Continue pulmonary hygiene Discontinue surgical drain Mobilize with assistance Skilled facility referral tomorrow Administer post splenectomy vaccines prior to dismissal ISHER Lakhwinder Donald - 07/20/2018 9:03 PM CST 07/20/182044 BPAP/CPAP Therapy BPAP/CPAP Interface Full face mask BPAP/CPAP Interface Size Medium $BPAP/CPAP Yes Ventilator Parameters BPAP/CPAP Mode CPAP (10 for hyperinflation ) Patient is currently on CPAP of 10 for hyperinflation. No other complication at this time. RT will continue to assist with placement of CPAP TID and QHS for hyperinflation. Electronically signed by: Lakhwinder Donald 07/20/18 9:05 PM ISHER Salty Hernandez APRN, C.N.P., M.S.N. - 07/20/2018 11:19 AM CST Trauma Daily Progress Note (Adult) Admission Date/Time: 07/15/2018 6:26 PM SUBJECTIVE: Ms. Painting is currently hospital day 5. Left sided chest tube placed to water seal this morning. Patient reports left chest wall pain at the site of the chest tube and her rib fractures. She states this is currently a 5-6 out of 10. Tolerating a diet with normal bowel function. Voiding spontaneouslyand making adequate urine. She is mobilizing short distances around the care unit with assist x1 caden walker. When queried about the dismissing to a skilled facility versus to home with assistance, the patient notes that she would prefer to dismiss to a skilled facility for further rehabilitation following her trauma. REVIEW OF SYSTEMS: Positive for left chest wall discomfort. Negative for dyspnea. Vital Signs: BP 125/82 Pulse 92 Temp 37 ??C Resp 16 Ht 170 cm Wt 77.2 kg SpO2 95% BMI 26.71 kg/m?? Temperature: [36.2 ??C-37.2 ??C] 37 ??C Heart Rate: [79-102] 92 Resp Rate: [7-21] 16 Blood Pressure: (110-138)/(57-82) 125/82 SpO2: [93 %-100 %] 95 % Flow Rate (L/min): [1 L/min-3 L/min] 1 L/min Pulse Rate: [79-103] 92 I/O 07/18 07 - 07/19 0707/19 - 07/20 0707/20 07 - 07/21 0700 P.O. 1050 500 240 Intermittent Medications 620 Total Intake(mL/kg) 1670 (22) 500 (6.5) 240 (3.1) Urine (mL/kg/hr) 1750 (1) 1050 (0.6) 600 (1.8) Drains 87 20 Chest Tube 345 75 Total Output 2182 1145 600 Net -512 -645 -360 Unmeasured Urine Occurrence 1 x 3 x PHYSICAL EXAM: Constitutional: She is oriented to person, place, and time. No distress. Pulmonary/Chest: Effort normal. No apnea. Left sided chest tube to water seal. Tidaling. No air leak. Abdominal: Midline surgical incision is well approximated with subcuticular closure. No evidence of infection. Left abdominal BERNY drain to bulb suction with serosanguinous drainage, non bilious. Neurological: She is alert and oriented to person, place, and time. Skin: Skin is warm and dry. Imaging: Dx Chest Portable 1 View Result Date: 07/20/2018 Impression: IMPRESSION: Since 07/19/2018, further decrease in size of the tiny left apical pneumothorax. Otherwise, no significant change. Left chest tube. Small left pleural effusion. Left basilar atelectasis or consolidation. Multiple left rib fractures. Bilateral cervical ribs. Lines, Drains, and Airways Drain Closed/Suction Drain Abdomen Bulb 19 Fr. 4d 15h days Chest Tube 1 Pleural 1d 20h days Consult Orders: IP CONSULT TO PHYSICAL MEDICINE & REHABILITATION ASSESSMENT / PLAN: - Current Diet Adult Diet Regular: General starting at 07/17 0646 - Activity/Exercise: As tolerated, up with assistance and walker for stability - VTE Prophylaxis/Therapy: Lovenox 30 mg subcutaneous BID - Bowel Regimen: Senna/docusate, MiraLax, Bisacodyl suppository - GI Prophylaxis: Lactobacillus rhamnosus - Void: Natural/spontaneous - Pain: Lidocaine patch, Tramadol, Lyrica, oxycodone - Antibiotics: None - Dressing: Left chest tube site - Cultures: None - Disposition: General cares, dismissal pending timing of discontinuation of left sided chest tube, will require senior care facility versus rehab, anticipate readiness for dismissal on Sunday07/22/18 ?? Mechanism of Injury: Fall on ice ?? #1 Fracture Rib Multiple Closed Initial Left #2 Pneumothorax Trauma Initial #3 Hemothorax Trauma Initial Left 3-8 lateral, and 4-8 posterior rib fractures with flail segment of left ribs 4-8. - CXR this morning is stable. - Chest tube to water seal. Output 75/345 mL. Plan for discontinuation of this later today. - Encourage aggressive pulmonary hygiene with deep breathing, coughing and use of incentive spirometer at least 10 times per hour while awake. - Continue CPAP TID and QHS. - Pain control as outlined above. Lyrica x7 day course, as patient reports dizziness with Gabapentinadministration. - Non-pharmacologic treatment modalities: distraction, guided imagery, ice/heat application, pillows/blankets for splinting, positioning (elevate head of bed, seated in recliner; NOT lying flat). - Will require 2 week rib fracture follow up with a status check AP/Lat chest x-ray. #4 Major Laceration Spleen Initial #5 Anemia Posthemorrhagic Acute (Blood Loss Anemia) Grade 4 splenic laceration s/p open splenectomy on 07/15/18. - BERNY drain remains in place to bulb suction. Continue to monitor output character and volume. Csoyac10/87/125/205 mL. If outputs remain low, this can de discontinued tomorrow. - Midline incision closed;??monitor for s/s of infection. - Hgb stable 14.0/14.6. Continue to monitor. Transfuse if hemoglobin less than 7 or if symptomatic in this regard. - Splenic vaccinations will need to be given 2 weeks post-operation (on 07/29/18) or day of dismissal, whichever is sooner. - Will require follow-up IV contrast CT of the abdomen and pelvis in 4 weeks following trauma, and aHgb check. ? #6 Dysthymia - Home Sertraline. ? Please feel free to page the Trauma Service at [phone] with any questions in regards to the plan of care. ADDENDUM: 07/20/18 at 1553 Left sided chest tube removed at the bedside. Patient tolerated this well. Occlusive dressing applied. No immediate complications noted. Patient has two sutures in place at the chest tube insertion site that will need to be removed in 7-10 days. Post chest tube removal AM chest x-ray has been ordered. Hayden Patricio M.D. - 07/20/2018 9:54 AM CST Patient seen and evaluated with the trauma team. Left-sided tube thoracostomy has been moved to water seal is morning Water seal chamber title and there is no air leak. Cough is vigorous Chest x-ray reviewed, stable Surgical drain with 15 cc of output over the preceding 24 hr, serosanguineous Plan: Plan for left-sided tube thoracostomy removal later on today Recheck chest x-ray in the morning Dietary tolerance has been demonstrated with no suggestion of pancreatic leak via drain. Will continue to monitor drain for low output for the next 24 hr and anticipate removal of the drain tomorrow Discussed patient's mobility; recommendation for skilled facility versus transitional unit per therapy. The patient is in agreement of this assessment. ISHER Rashmi Cameron, Mike.R.T., L.R.T. - 07/20/2018 7:35 AM CST 07/20/18 0700 BPAP/CPAP Therapy BPAP/CPAP Interface Full face mask BPAP/CPAP Interface Size Medium $BPAP/CPAP Yes Ventilator Parameters BPAP/CPAP Mode CPAP NPPV EPAP (CPAP) Setting 10 cm H2O cpap for hyperinflation at night and during the day as available ISHER Pineda Kitchen P.T., D.P.T. - 07/19/2018 3:43 PM CST Physical Therapy Inpatient Treatment Note SUBJECTIVE Patient's Name: Yarelis Painting Referring/Attending: Hayden Matthew M.D. Medical Diagnosis: Major Laceration Spleen Initial [S36.032A] Major Laceration Spleen Initial [S36.032A] Reason for Referral: PT Evaluate and Treat Onset Date: 07/16/18 Payor: MEDICARE / Plan: MEDICARE A AND B / Product Type: Medicare / History of Present Illness: Patient admitted due to fall from standing on ice. Sustained a splenic laceration and left-sided rib fractures 3 through 8 Patient/Caregiver Goals: To reduce pain and return home Patient Comments: Patient pleasant, in good spirits, states she has not walked since coming down outof the intensive care unit. She indicates that pain levels in ribs/abdomen are tolerable to participate in therapy this morning. Activity Orders None Precautions Other Precautions: rib fracture protocol, pain, fall risk, new respiratory. Neck brace cleared by team 2/6 Fall Risk (65 and older) Fall in the last 12 months: Yes Did you have an injury with the fall?: Yes (reason for hospitalization) OBJECTIVE Vitals taken during session: Pulse rate: 92-92 bpm, Blood pressure: 129/72 in sitting mmHg, O2 sats:94-94% and O2 flow: Room air Marisela Fatigue Scale: Before activity: 7, After ambulation: 12 Treatment consisted of: Transfer - Sit to Stand # of Assistants: 1 Device: Front wheeled walker Level of Assistance: Minimal assistance Comments: cues for hand placement Transfer - Stand to Sit # of Assistants: 1 Level of Assistance: Minimal assistance Device: Front wheeled walker Transfer - Bed, Chair, Wheelchair # of Assistants: 1 Device: front wheeled walker Level of Assistance: Minimal assistance Comments: cues for hand placement, sequencing Gait Training # of Assistants: 1 Level of Assistance: Minimal assistance Device: Front wheeled walker Distance (m): 25 m Cuing: Verbal (cues for upright posture, deeper breathing as able) Assessment of Gait: grossly decreased gait speed and, good foot clearance bilaterally but decreased step length and alireza. The patient/family educated on safe transfer techniques with functional mobility/activity. Patient was left in bedside chair at end of session with call light in reach, all needs met and questions answered. Outcome Measures AM-PAC Inpatient Short Form: AM-PAC Mobility: How much difficulty does the patient currently have??? Turning over in bed (including adjusting bedclothes, sheets and blankets)?: A Little Sitting down on and standing up from a chair with arms (e.g., wheelchair, bedside commode, etc.): A Little Moving from lying on back to sitting on the side of the bed?: A Little AM-PAC Mobility: How much help from another person does the patient currently need??? Moving to and from a bed to a chair: A Little Need to walk in hospital room?: A Little Climbing 3-5 steps with a railing?: A Lot Basic Mobility Raw Score: 17 Basic Mobility Standardized Score: 42.13 Interpretation: Clinicians answer the AM-PAC Inpatient Short Form based on observed patient activityand/or clinical judgement (ie. patient can be scored without physically performing each activity) According to scoring guidelines: Those going to home had an average score of 20.1 Those going home with home care had an average score of 17.9 Those going to SNF had an average score of 14 Those going to IRF had an average score of 13.6 Those going to a LTAC had an average score of 11.5 Assessment Barriers to Discharge: Inaccessible home environment, Decreased caregiver support Discharge Recommendation: Ongoing skilled therapy recommended in a post-acute setting From a physical therapy perspective, the level of care above has been recommended for Ms. Painting after hospital discharge. This level of care is based on her functional abilities during today's session. This may change throughout the hospital course and will be updated as appropriate. Clinical Impression of today's session: Patient making progress with mobility today, and was able to ambulate a short distance into the hallway with assistance and front wheeled walker, after which she was fatigued. She is still requiring assistance with all mobility and presents with deficits in strength, balance, and activity tolerance, and would benefit from short term placement for further therapy. Given patient's tolerance to activity, would recommend Transitional Care Unit or senior care facility vs acute inpatient rehabilitation facility such as [address] [place] [address]. Rehab potential: Ms. Painting has Good potential to achieve established physical therapy goals within the time frame outlined below. Functional Goals and Timeframes: PT Inpatient Goals PT Goal #1: Patient will complete rolling and supine to/from sit with modified independence to demonstrate improved functional independence. PT Goal #2: Patient will complete sit to/from stand with modified independence, least restrictive gait aid, to demonstrate improved functional independence. PT Goal #3: Patient will ambulate 45m with modified independence, least restrictive gait aid, to demonstrate improved functional independence. PT Goal #4: Patient will negotiate 2 steps with no railing, least restrictive gait aid, to demonstrate improved functional independence and work toward homegoing. Plan Treatment Plan: Plan: Plan of care initiated PT Frequency: 5x/week PT Duration: Until goals met or hospital discharge. Requires Inpatient Follow-Up: Yes PT - Next Inpatient Appointment: 07/22/18 Plan Comments: progress gait distance, continue working on safety with transfers and bed mobility Treatment interventions may include: Therapeutic exercise, Therapeutic functional activity, Neuromuscular re- education, Self-care/home management, Gait training Billing: Time Spent with Patient Therapeutic Activity (min): 20 min Total Timed Units (min): 20 min Total Treatment Time (min): 20 min Functional G-code Worksheet Basic Mobility Raw Score: 17 Basic Mobility Standardized Score: 42.13 CMS 0-100% Score: 50.57 % Basic Mobility CMS Modifier: CK Kenneth Kitchen P.T., D.P.T. ISHER Diane Srivastava O.T. - 07/19/2018 11:30 AM CST Occupational Therapy Acute Hospital Inpatient Treatment SUBJECTIVE Patient's Name: Yarelis Painting Referring/Attending Provider: Hayden Matthew M.D. Medical Diagnosis: Major Laceration Spleen Initial [S36.032A] Major Laceration Spleen Initial [S36.032A] Reason for Referral: Occupational Therapy Evaluation and Treatment Onset Date: 07/16/18 Payor: MEDICARE / Plan: MEDICARE A AND B / Product Type: Medicare / History of Present Illness: Patient admitted due to fall from standing on ice. Sustained a splenic laceration and left-sided rib fractures 3 through 8 Family/Caregiver Present: No Patient/Caregiver Goals: To reduce pain and return home Patient Comments: Reports she is doing better. Just worked with PT and we walked out in the hallway Activity Orders None Precautions Other Precautions: rib fracture protocol, pain, fall risk, new respiratory. Neck brace cleared by team 2/6 Fall Risk (65 and older) Fall in the last 12 months: Yes Did you have an injury with the fall?: Yes (reason for hospitalization) OBJECTIVE Cognition Orientation: Oriented X4 Impulsive: Addressed, no concerns noted Memory: Addressed, no concerns noted Following Commands: Follows all commands and directions without difficulty Grooming Grooming Level of Assistance: Modified independent Grooming Where Assessed: Standing sinkside Grooming Delivery: Practiced Grooming Comments: Able to wash hands standing within walker LE Dressing LE Dressing Level of Assistance: Independent LE Dressing Where Assessed: (chair) LE Dressing Delivery: Practiced Toileting Toileting Level of Assistance: Independent Where Assessed: Toilet Toilet Transfers Toilet Transfer Equipment: Walker, Grab bars, Toilet Toilet Transfer Type: To and from Toilet Transfer Technique: Ambulating Toilet Transfers: Supervision/Set-up Toilet Transfers Delivery: Practiced Cognitive Retraining: Cognition Orientation: Oriented X4 Impulsive: Addressed, no concerns noted Memory: Addressed, no concerns noted Following Commands: Follows all commands and directions without difficulty Cognition Memory: Addressed, no concerns noted Orientation: Oriented X4 Following Commands: Follows all commands and directions without difficulty Impulsive: Addressed, no concerns noted Communication: The patient's nurse was contacted and patient's status was discussed. Patient was left in bedside chair at end of session with call light in reach, all needs met and questions answered. Outcome Measures Current ADL Status: [facility] Inpatient Short Form: Putting on and taking off regular lower body clothing?: None Putting on and taking off regular upper body clothing?: None Taking care of personal grooming such as brushing teeth?: None Bathing (including washing, rinsing, drying)?: A Little Toileting, which includes using toilet, bedpan, or urinal?: None Eating meals?: None Daily Activities Raw Score (max 24): 23 Daily Activities Standardized Score: 51.12 Daily Activities CMS 0-100% Score: 15.86 Daily Activities CMS Modifier: CI Interpretation: Clinicians answer the [facility] Inpatient Short Form based on observed patient activityand/or clinical judgement (ie. patient can be scored without physically performing each activity) According to scoring guidelines: Those going to home had an average score of 20.1 Those going home with home care had an average score of 17.9 Those going to SNF had an average score of 14 Those going to IRF had an average score of 13.6 Those going to a LTAC had an average score of 11.5 Assessment Discharge Recommendation: 24 hour supervision (Intermittent assist/supervision) Recommended Adaptive Equipment OT: Ban muñiz Clinical Impression: Patient has met OT goals today. She has improved tremendously in terms of function since OT evaluation. Anticipate patient to d/c home with intermittent supervision and assist fromher when medically stable. Rehab potential: Ms. Painting has Excellent potential to achieve established occupational therapy goals within the time frame outlined below. Functional Goals: OT Goal #1: Patient will perform full body dressing with modifed independence to decrease caregiver assistance by d/c (MET) OT Goal #2: Patient will verbalize 3 new activity modifications for home to optimize safety and functional independence by d/c (MET) OT Goal #3: Patient will complete full toielting process (transfer, genesis cares, clothing management)with supervision to optimize independence by d/c (MET) OT Goal #4: Patient will complete bed mobility with supervision to progress self-care independence by d/c (discontinued) Plan OT Frequency: 5x/wk OT Duration: until goals met or hospital discharge Requires Inpatient Follow-Up: No Treatment interventions may include: Therapeutic exercise, Therapeutic functional activity, Self-care/home management Billing: Time Spent with Patient Home Management Training (min): 15 min Time Calculation Total Timed Units (min): 15 min Total Treatment Time (min): 15 min Functional G-code Worksheet Daily Activities Raw Score (max 24): 23 Daily Activities Standardized Score: 51.12 Daily Activities CMS 0-100% Score: 15.86 Daily Activities CMS Modifier: DAMION Srivastava O.T. ISHER Hayden Matthew M.D. - 07/19/2018 10:35 AM CST Patient discussed with the trauma team. She was getting a bed bath this morning and bus unavailable for team Trauma rounds Chest x-ray demonstrates improved clearance of the left pleural space Plan: Maintain left-sided tube thoracostomy for the time being based on output and intermittent air leak Maintain Son-Martinez drain given serosanguineous output and volume Hemoglobin remained stable; likewise hemodynamics stable Anticipate hospital dismissal in the next 48-72 hours contingent on duration of chest tube ISHER Rashmi Cameron R.R.T., L.R.T. - 07/19/2018 9:16 AM CST Assist with cpap at night, hyperinflation therapy pt in chair, getting up to use bathroom , will check back later for therapy Salty Raygoza APRN C.N.P., M.S.N. - 07/19/2018 6:48 AM CST Trauma Daily Progress Note (Adult) Admission Date/Time: 07/15/2018 6:26 PM SUBJECTIVE: Ms. Painting is currently hospital day 4. No acute events overnight reported. Transferred from SICU to general cares yesterday. Left sided chest tube placed in the SICU yesterday for hemopneumothorax. Chest tube output 345 mL. Patient reports good pain control this morning. She has been mobilizing short distances and is utilizing a walker. She is having bowel function, last BM yesterday. REVIEW OF SYSTEMS: Negative for difficulty breathing. Negative for abdominal pain. Negative for nausea or vomiting. Negative for constipation. Positive for dizziness with Gabapentin administration. Lab Review: Recent Results (from the past 24 hour(s)) Basic Metabolic Panel Collection Time: 07/18/18 2:02 PM Result Value Potassium, P 5.8 (H) Sodium, P 139 Chloride, P 99 Bicarbonate, P 31 (H) Anion Gap, P 9 BUN, P 11 Creatinine, P 0.61 eGFR Black >90 eGFR Non-Black >90 Calcium, Total 8.8 Glucose, P 120 Magnesium Collection Time: 07/18/18 2:02 PM Result Value Magnesium, S 1.8 Phosphorus Inorganic Collection Time: 07/18/18 2:02 PM Result Value Phosphorus (Inorganic), S 6.5 (H) Basic Metabolic Panel Collection Time: 07/18/18 3:45 PM Result Value Potassium, P 4.7 Sodium, P 141 Chloride, P 100 Bicarbonate, P 33 (H) Anion Gap, P 8 BUN, P 12 Creatinine, P 0.57 (L) eGFR Black >90 eGFR Non-Black >90 Calcium, Total 9.1 Glucose, P 102 Phosphorus Inorganic Collection Time: 07/18/18 3:45 PM Result Value Phosphorus (Inorganic), S 3.2 Basic Metabolic Panel Collection Time: 07/18/18 9:34 PM Result Value Potassium, S 4.1 Sodium, S 138 Chloride, S 99 Bicarbonate, S 29 Anion Gap 11 Bld Urea Nitrog(BUN), S 15 Creatinine, S 0.59 eGFR-Non Black >90 eGFR-Black >90 Calcium, Total 8.6 (L) Glucose, S 112 Magnesium Collection Time: 07/18/18 9:34 PM Result Value Magnesium, S 2.1 Phosphorus Inorganic Collection Time: 07/18/18 9:34 PM Result Value Phosphorus (Inorganic), S 2.2 (L) CBC without Differential Collection Time: 07/18/18 9:35 PM Result Value Hemoglobin 14.0 Hematocrit 42.3 Erythrocytes 4.70 MCV 90.0 RBC Distrib Width 15.9 Platelet Count 176 Leukocytes 9.4 Vital Signs: BP 135/61 Pulse 85 Temp 36.2 ??C (Oral) Resp 16 Ht 170 cm Wt 76 kg SpO2 97% BMI 26.30 kg/m?? Temperature: [36.2 ??C-37.6 ??C] 36.2 ??C Heart Rate: [79-106] 95 Resp Rate: [6-25] 16 Blood Pressure: (104-170)/(56-102) 135/61 FiO2 (%): [21 %] 21 % SpO2: [82 %-100 %] 97 % Flow Rate (L/min): [1 L/min-3 L/min] 1 L/min Pulse Rate: [70-105] 85 I/O 07/17 700 - 07/18 0700 07/18 700 - 07/19 07 P.O. 250 1050 Intermittent Medications 620 Total Intake(mL/kg) 250 (3.3) 1670 (22) Urine (mL/kg/hr) 1979 (1.1) 1750 (1) Drains 125 87 Chest Tube 345 Total Output 2104 2182 Net -1854 -512 Unmeasured Urine Occurrence 1 x PHYSICAL EXAM: Constitutional: She is oriented to person, place, and time. No distress. Cardiovascular: Normal rate, regular rhythm and normal heart sounds. Trace BLE edema Pulmonary/Chest: Effort normal and breath sounds normal. No respiratory distress. Left sided chest tube to Atrium to wall suction. Chest tube is in proper placement by CXR review. Chest tube dressing is C/D/I. 345 mL of sanguinous drainage in the Atrium, scant amount of serosanguinous drainage in the collection tubing. Bellow is inflated. Intermittent air leak present. Good cough effort. Abdominal: Soft. She exhibits no distension. There is no tenderness. Midline surgical incision is well approximated with subcuticular closure with a small amount of circumferential ecchymosis. Left sided BERNY drain to bulb suction with sanguinous drainage. BERNY drain is secured to the skin with a suture. Musculoskeletal: Bilateral upper and lower extremities negative for tenderness or deformity. Neurological: She is alert and oriented to person, place, and time. Skin: Skin is warm and dry. Imaging: Ct Chest With Iv Contrast Result Date: 07/18/2018 Impression: IMPRESSION: 1. Enlarging left and new trace right pleural effusions with associated compressive atelectasis. No high density or layering blood products to suggest hemothorax as queried. 2. Stable tiny left apical pneumothorax with multiple left-sided rib fractures. Single bubble of gas within the mediastinum adjacent to the esophagus which is likely post operative, however recommend attention on follow up. 3. Interval splenectomy with new left upper abdominal drain and hematoma anterior to the left kidney. Small amount of free intraperitoneal gas is likely post operative. Dx Chest Portable 1 View Result Date: 07/19/2018 Impression: IMPRESSION: Since yesterday, the small left apical pneumothorax has decreased. Otherwiseno change. Left chest tube. Small left pleural effusion. Atelectasis/infiltrate left lower lung. Multiple left rib fractures. Lines, Drains, and Airways Drain Closed/Suction Drain Abdomen Bulb 19 Fr. 3d 10h days Chest Tube 1 Pleural 16h days Consult Orders: IP CONSULT TO PHYSICAL MEDICINE & REHABILITATION ASSESSMENT / PLAN: - Current Diet Adult Diet Regular: General starting at /06 0646 - Activity/Exercise: As tolerated with walker - VTE Prophylaxis/Therapy: Lovenox 30 mg subcutaneous BID - Bowel Regimen: Senna/docusate, MiraLax, Bisacodyl suppository - GI Prophylaxis: Lactobacillus rhamnosus - Void: Natural/spontaneous - Pain: Lidocaine patch, Tramadol, Lyrica, oxycodone - Antibiotics: None - Dressing: Left chest tube site - Cultures: None - Disposition: General cares, dismissal pending timing of discontinuation of left sided chest tube Mechanism of Injury: Fall on ice #1 Fracture Rib Multiple Closed Initial Left #2 Pneumothorax Trauma Initial #3 Hemothorax Trauma Initial #4 Acute Respiratory Failure With Hypoxia (HCC) Left 3-8 lateral, and 4-8 posterior rib fractures with flail segment of left ribs 4-8. - Intubated prior to transport, Extubated on 07/16. - Rib fracture protocol completed. - CXR this morning with a decrease in the small left apical pneumothorax, and a small pleural effusion. - Chest tube with intermittent air leak. Maintain chest tube to wall suction. Output 345 mL since placement. - Encourage aggressive pulmonary hygiene with deep breathing, coughing and use of incentive spirometer at least 10 times per hour while awake. - Continue CPAP TID and QHS. - Pain control as outlined above. Continue Lyrica x7 day course, as patient reports dizziness with Gabapentin administration. - Non-pharmacologic treatment modalities: distraction, guided imagery, ice/heat application, pillows/blankets for splinting, positioning (elevate head of bed, seated in recliner; NOT lying flat). - Will require 2 week rib fracture follow up with a status check AP/Lat chest x-ray. #5 Major Laceration Spleen Initial #6 Anemia Posthemorrhagic Acute (Blood Loss Anemia) #7 Hypovolemic Shock (HCC) Grade 4 splenic laceration s/p open splenectomy on 07/15/18. - Massive blood transfusion initiated in trauma bay; received total 7 units PRBCs, 5 units FFP, 2 units Plt, and intraoperative cell saver. - BERNY drain remains in place to bulb suction. Continue to monitor output character and volume. Oecobi15/125/205 mL. Output is non bilious. - Midline incision closed; monitor for s/s of infection. - Hgb stable 14.0/14.6. Continue to monitor. Transfuse if hemoglobin less than 7 or if symptomatic in this regard. - Splenic vaccinations will need to be given 2 weeks post-operation or day of dismissal, whichever is sooner. - Will require follow-up IV contrast CT of the abdomen and pelvis in 4 weeks following trauma, and [facility] check. #8 Abnormal Computed Tomography 07/15/18 CT chest with gas noted in the right upper extremity, query right humerus contusion. - No obvious outward signs of trauma to the area on physical exam. - Imaging reviewed with Dr. Matthew. No further work up indicated at this time. #9 Dysthymia - Home Sertraline. #10 Hypophosphatemia - Phos 2.2 on 07/18/18. This was repleted. Electrolyte monitoring and correction as indicated. Please feel free to page the Trauma Service at [phone] with any questions in regards to the plan of care. ISHER Estefani Kuo L.G.S.W., M.S.W. - 07/18/2018 3:38 PM CST SUBJECTIVE Does not apply OBJECTIVE Does not apply ASSESSMENT / PLAN ASSESSMENT Social work attempted to meet with patient to provide support and complete psychosocial assessment. Patient was busy with other providers at the time. PLAN 1. Social work will follow up at a later time. Chai Rubio, M.S.W. 07/18/2018 ISHER Ayleen Sun MYvonneS. - 07/18/2018 3:13 PM CST 07/18/18 1513 Reason Therapy Missed Reason Therapy Missed Other (comment) Attempted to see patient this afternoon. Patient's nurse explained patient was getting chest tube placed. Unable to return later in the day. Her nurse did share patient struggled with initial standing, but once balanced, progressed functional mobility out into hallway with walker and one person assistance. Will follow up tomorrow. Lora Parish P.T., D.P.T. - 07/18/2018 1:15 PM CST 07/18/18 1315 Reason Therapy Missed Reason Therapy Missed Other (comment) (Therapist attempted to see patient, however unavailable, as patient was just about to get chest tubes placed in due to pleural effusion. Plan to check back 07/19 and progress through plan of care as able/appropriate.) Hayden Patricio M.D. - 07/18/2018 11:08 AM CST Patient seen and evaluated with the trauma team. No further nausea or emesis episodes Tolerating a diet Cervical collar has been cleared Surgical drain is sanguinous Abdomen is surgically benign Hemoglobin 14.6 Chest x-ray reveals stable left-sided pneumothorax with increasing consolidation to the left lower lobe Plan: I have recommended that we obtain a CT scan of the chest. This will afford this a look at the left lower lobe of the lung, the pleural space, an updated look at her chest wall, and also an examination of her postoperative left upper quadrant bed. Decisions regarding pleural space drainage and/or rib fracture stabilization will be made on the basis of this imaging along with clinical correlation. Karri Baugh M.D. - 07/18/2018 10:34 AM CST SICU Progress Note SUBJECTIVE Brief history: Yarelis Painting is a 67 y.o. female otherwise fairly healthy, who presented on 07/15/2018 after fall from standing on ice. Sustained a splenic laceration and was initially hypotensive. Massive transfusion protocol was initiated and she underwent urgent splenectomy prior to admission to the SICU. Other injuries are left-sided rib fractures 3 through 8 and tiny left apical pneumothorax. INTERVAL HISTORY: No issues overnight. OBJECTIVE Physical Exam: General: Awake, alert, not distressed HEENT: Normocephalic. Atraumatic. Conjunctivae non-injected. Sclerae anicteric. Moist mucous membranes. Heart: Regular rate and rhythm. Lungs: No increased work of breathing. Breath sounds decreased at the left base Abdomen: left BERNY drain. Midline abdominal incision with abdominal binder. Soft, non-tender, non-distended. MSK: Extremities warm. VITALS: Temperature: [36.4 ??C-37.4 ??C] 36.4 ??C Heart Rate: [79-106] 97 Resp Rate: [6-25] 13 Blood Pressure: (104-170)/(56-102) 170/71 FiO2 (%): [21 %] 21 % SpO2: [82 %-100 %] 99 % Flow Rate (L/min): [2 L/min] 2 L/min Pulse Rate: [70-105] 94 I/O/N: Intake/Output Summary (Last 24 hours) at 07/18/18 1034 Last data filed at 07/18/18 0913 Gross per 24 hour Intake 363 ml Output 2472 ml Net -2109 ml LABS: Recent Results (from the past 24 hour(s)) Basic Metabolic Panel Collection Time: 07/18/18 6:29 AM Result Value Potassium, S 3.7 Sodium, S 141 Chloride, S 102 Bicarbonate, S 26 Anion Gap 13 Bld Urea Nitrog(BUN), S 9 Creatinine, S 0.56 (L) eGFR-Non Black >90 eGFR-Black >90 Calcium, Total 8.6 (L) Glucose, S 77 CBC without Differential Collection Time: 07/18/18 6:29 AM Result Value Hemoglobin 14.6 Hematocrit 43.8 Erythrocytes 4.89 MCV 89.6 RBC Distrib Width 16.3 (H) Platelet Count 166 Leukocytes 12.5 (H) Phosphorus Inorganic Collection Time: 07/18/18 6:29 AM Result Value Phosphorus (Inorganic), S 1.9 (L) Microbiology Results (last 72 hours) No results found for the last 72 hours. IMAGING: Ct Head Without Iv Contrast Result Date: 07/16/2018 Impression: IMPRESSION: No acute intracranial findings. Ct Cervical Spine Without Iv Contrast Result Date: 07/16/2018 Impression: IMPRESSION: 1. No acute traumatic findings of the cervical spine. 2. Scattered moderate-advanced degenerative changes of the cervical spine as above. Ct Thoracic Spine Without Iv Contrast, Ct Lumbar Spine Without Iv Contrast Result Date: 07/16/2018 Impression: IMPRESSION: No definitive acute fractures/injury of the thoracic or lumbar spine. Chronic changes as noted. Dx Chest Portable 1 View Result Date: 07/17/2018 Impression: IMPRESSION: Since yesterday the ETT and NG have been removed. New retrocardiac and left lower lung opacities. A tiny left apical pneumothorax has slightly increased in size. Left pleural effusion. Left basilar chest tube or left upper quadrant surgical drain. ASSESSMENT / PLAN #1 Major Laceration Spleen Initial #2 Pneumothorax Trauma Initial #3 Fracture Rib Multiple Closed Initial Left #4 Anemia Posthemorrhagic Acute (Blood Loss Anemia) #5 Hypovolemic Shock (HCC) #6 Acute Respiratory Failure With Hypoxia (HCC) Plan by systems: Hemodynamics/CV: Stable without pressors -HR 80s to 90s -SBP 120s -MAP 70s to 80s. Goal greater than 65 -home medications: None PLAN-- ?Continue to monitor hemodynamics. ?? Neurologic: -GCS 15. - pain fairly well controlled. - pain regimen: Scheduled Tylenol and tramadol, lidocaine patch, gabapentin 300 mg t.i.d., Lyrica 75mg b.i.d., p.r.n. Oxycodone - continue home sertraline 200 mg daily PLAN-- Continue adequate pain control. Trial Toradol followed by naproxen. Pulmonary: Small left pneumothorax on initial CT Chest Rib fractures left 3-8. 4-6 are displaced. -CXR: Left lower lobe opacity worsened since yesterday. Likely sympathetic effusion associated with post splenectomy. Possibly pulmonary contusion or hemothorax associated with rib fractures, less likely infectious. - saturating well on 2 L nasal cannula and CPAP overnight. PLAN-- CT today to characterize pulmonary process, rib fractures, and post splenectomy area.? Rib fracture protocol, pulmonary hygiene. Diuresis. CPAP as tolerated. Rib fracture management per trauma team. Currently not planning for surgical fixation of displaced ribs. ?? Renal: -Net: positive 5.7 L overall. Negative 1.8 L yesterday -UOP: 2 L over 24 hr -diuresed with 40 mg of Lasix yesterday and 40 mg again given this morning -BMP: potassium 3.7, replaced, sodium 141, chloride 102, bicarb 26, creatinine 0.56. - mIVF: None PLAN-- ?Diuresis as above for pulmonary status. Continue to monitor fluid status andelectrolytes. ?? ID: ?? -Tc 37.6 -WBC 12.5 from 11.0 PLAN-- ?Continue to monitor for signs of infection. Will need post splenectomy vaccinations prior to discharge. ?? Heme: Has not required transfusion since massive transfusion protocol was initiated when hypotensive on arrival 07/15/2018. Status post splenectomy for traumatic splenic laceration. -HGB 14.6 from 14.9. -PLT 166 PLAN-- ? Continue to monitor CBCs. ?? GI/Nutrition: -general diet -abdominal BERNY drain in place. Output was 125 mL over 24 hr. - bowel regimen: MiraLax, senna, Bentyl, lactobacillus PLAN-- ? Continue the above medication regimen. Will give Dulcolax suppository as she has not yet had a bowel movement. ?? Endocrine: -No history of diabetes - glucose levels have been normal. Continue to monitor. ?? Musculoskeletal: PLAN-- ?Cervical collar cleared. ?Head and spine CT negative for injury. Rib fracture management as above Vascular Access: ??PIV x2 Prophylaxis -DVT: ??SCDs, Lovenox 30 mg b.i.d. -Ulcer: Not indicated Code Status: ??FULL ?? Disposition: ??Consider transfer to the floor based on respiratory status and results of chest CT later today. Service pager: [phone] ISHER Associated attestation - Yeison Butt M.D. - 07/18/2018 12:32 PM PLANISHER I have seen, examined, reviewed, and discussed this patient with the [facility] ICU team. Please refer to resident/JAUN/Fellow note for details. I have reviewed pertinent history, physical exam, labs, and imaging. I agree with documented history, objective findings, assessment and plan. ASSESSMENT / PLAN Problem List * (Principal)Major Laceration Spleen Initial Dysthymia Overview Signed 10/31/2016 11:12 AM by Shana Irizarry Problem List [id number] Dysthymic Disorder (300.4) Pneumothorax Trauma Initial Overview Signed 07/16/2018 4:43 AM by Galo Langford M.D. Left, small Fracture Rib Multiple Closed Initial Left Anemia Posthemorrhagic Acute (Blood Loss Anemia) Hypovolemic Shock (HCC) Acute Respiratory Failure With Hypoxia (HCC) Neurological: Patient following commands with no evidence of TBI. Pain controlled. Plan: Continue pain control regimen. Pulmonary: Extubated yesterday. Oxygenating well on 2 L nasal cannula. Left 4 through 9 rib fractures. Small left pneumothorax without significant expansion. Increased consolidation of left lower lobe on morning chest x-ray. Plan: Aggressive pulmonary hygiene. CPAP t.i.d. and q.h.s. Rib fracture protocol. Daily chest x-rays. CT chest ordered for today. Cardiovascular: Hemodynamically stable. No pressor requirements or ongoing resuscitation necessary. Plan: Continue to monitor. Renal/Electrolytes: Good urine output. Electrolytes within normal limits. Positive 5.7 L for admission. Plan: Continue to monitor urine output, creatinine, and BUN. Plan diuresis with Lasix. Replace potassium. Gastrointestinal: Status post splenectomy. Left upper quadrant drain in place. Small amount of serosanguineous output. Plan: No further operative intervention planned. No evidence of pancreatic leak. . Nutrition: advance to regular diet as tolerated Endocrine: No acute issues. Plan: Monitor glucose. Hematological: Patient received massive transfusion protocol upon arrival. No further blood product resuscitation needed postoperatively. Plan: Monitor CBCs. Infectious Disease: Patient received perioperative antibiotics. No current signs of infection. Plan: Monitor for signs or symptoms of infection. Patient will need post splenectomy vaccinations prior to discharge Musculoskeletal: No extremity injuries. No spine injuries. Plan: Mobilize out of bed as tolerated. Access: Peripheral IVs x2. Plan: Continue. Prophylaxis: Enoxaparin for DVT prophylaxis. No indication for GI prophylaxis. Disposition: Patient may be appropriate for transfer to general care floor later today. Treatment discussed with primary service. Critical care time 20 minutes. This is time spent at this critically ill patient's bedside actively involved in patient care, as well as the coordination of care and discussions with the patient's family. This does not include any procedural time which has been billed separately. Annabel Clements P.A.-C. - 07/18/2018 7:38 AM CST SUBJECTIVE Ms. Painting was seen and examined by the Trauma team with Dr. Matthew in her room this morning. She remains hemodynamically stable and no acute events overnight. Per ICU team, she tolerated her CPAP all night. She denies fever and chills. She reports her abdominal and chest wall pain is adequately controlled. Her pain is 3-5/10 this morning. She is tolerating a general diet with 490 cc's of oral intake yesterday. Her urinary catheter was removed and she has since voided spontaneously. She had 2.5 L of urine output yesterday following Lasix 20 mg IV. She has not had a bowel movement since admission, this is day 3. OBJECTIVE VITAL SIGNS Temperature: [37.2 ??C-37.6 ??C] 37.2 ??C Heart Rate: [79-106] 92 Resp Rate: [6-24] 7 Blood Pressure: (104-131)/(56-102) 120/68 SpO2: [82 %-100 %] 99 % Flow Rate (L/min): [2 L/min] 2 L/min Pulse Rate: [70-105] 92 I/O last 3 completed shifts: In: 250 [P.O.:250] Out: 2103 [Urine:1978; Drains:125] BERNY drain: 125 / 205 / 60; LUQ with serosanguineous drainage Constitutional: Awake, alert, pleasant female sitting up in the chair and in no acute distress Cardiovascular: Regular rhythm. Pulmonary/Chest: Normal breathing effort on 2 L via nasal cannula. Diminished breaths in LLL. Abdominal: Soft, appropriately tender (mainly midline incision pain), nondistended. Midline incision is well approximated without surrounding erythema or drainage noted. BERNY drain in LUQ with serosanguineous drainage in bulb. Skin: Skin is warm and dry. Capillary refill takes less than 2 seconds. DIAGNOSTICS Hgb 14.6 / 14.9 Hct 43.8 Plt 166 WBC 12.5 / 11.0 Na 141 K 3.7 Cl 102 Bicarb 26 BUN 9 Cr 0.56 Glc 77 Phos 1.9 ASSESSMENT / PLAN Mechanism: Fall from standing height on ice #1 Fracture Rib Multiple Closed Initial Left #2 Pneumothorax Trauma Initial #3 Acute Respiratory Failure With Hypoxia (HCC) - Left ribs 3-8 lateral, 4-8 posterior; Flail chest left ribs 4-8 - Intubated prior to transport, Extubated on 07/16 - Rib fracture protocol completed (NIF -60, VC 1.27, pred VC 3.37) - CXR this morning demonstrated stable left small apical pneumothorax, left pleural effusion, possibly hemothorax and dense retrocardiac consolidation - Lasix given this morning to assist with diuresis - U/S of lung obtained at bedside by ICU staff yesterday - CT chest obtained today which showed pleural effusion - 28 Fr chest tube was placed under moderate sedation and draining serosanguineous drainage - Encourage aggressive pulmonary hygiene with deep breathing, coughing and use of incentive spirometer at least 10 times per hour while awake - Continue CPAP TID and QHS ?? 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 PLAN 1. New Consults 1. PMR: TBI consult 2. PT/OT: safety evaluation 2. Diet: General diet 3. Activity: As tolerated 4. VTE Prophylaxis: Lovenox 30 mg BID 5. GI Prophylaxis: Pantoprazole 6. Bowel Regimen: MiraLAX, Senokot-S 7. Pain: Tylenol, Tramadol, Lyrica x 2 days followed by Gabapentin starting tomorrow, Oxycodone 5 mg, Lidoderm 8. Antibiotics: None 9. Disposition: ICU cares, Transfer to general cares today All cares per ICU team. Please page the Trauma service at [phone] if we may be of assistance. ISHER Estefani Kuo L.G.S.W. M.S.W. - 07/17/2018 4:31 PM CST SUBJECTIVE Does not apply OBJECTIVE Does not apply ASSESSMENT / PLAN ASSESSMENT Social work attempted to meet with patient to provide support and complete comprehensive assessment.Patient was not available at this time. PLAN 1. Social work will follow up at a later time. Chai Rubio M.SDiane 07/17/2018 ISHER Annable Clements P.A.-C. - 07/17/2018 3:32 PM CST SUBJECTIVE Ms. Painting was seen and examined by the Trauma team with Dr. Matthew in her room this morning. She remains in the excellent cares of the ICU team. She reports she slept okay, but was limited due to pain.She was extubated yesterday and tolerated a few hours of CPAP overnight. Per nursing staff, she tookoff the CPAP at 0130 due to discomfort of the mask. She is saturating 98-100% on room air. She continues with cervical collar in place due to midline tenderness noted on examination last evening. This morning she had an emesis during our visit. She has not had additional emesis since this morning. Shecontinues with urinary catheter in place and had 2.3 L of urine output since midnight; of note she has had 40 mg of Lasix in that time frame as well. She has not had a bowel movement since admission, this is day 2. OBJECTIVE VITAL SIGNS Temperature: [37.4 ??C-37.8 ??C] 37.6 ??C Heart Rate: [79-99] 86 Resp Rate: [8-27] 18 Blood Pressure: (104-135)/(56-73) 128/68 Arterial Line BP: (136-146)/(58-73) 137/58 SpO2: [82 %-100 %] 98 % Flow Rate (L/min): [2 L/min] 2 L/min Pulse Rate: [70-98] 85 I/O last 3 completed shifts: In: 193 [P.O.:600; Enteric (NG/OG) Tube:195] Out: 3176 [Urine:2856; Emesis or Enteric Tube:100; Drains:220] BERNY: 15 since 0700 this morning / ; LUQ with serosanguineous drainage in bulb Constitutional: Awake, alert, pleasant female sitting up in the chair with Hale J in place and in no acute distress Pulmonary/Chest: Splinting visible with deep breath. Pulled 1000 on IS once this morning, followed by 750 each subsequent attempt. Diminished air exchange bilateral bases, L>R Abdominal: Soft, appropriately tender, mildly distended. Midline incision with dressing in place which is c/d/i. LUQ BERNY drain with serosanguineous drainage in bulb. Skin: Skin is warm and dry. Capillary refill takes less than 2 seconds. DIAGNOSTICS Dx Chest Portable 1 View Result Date: 07/17/2018 IMPRESSION: Since yesterday the ETT and NG have been removed. New retrocardiac and left lower lung opacities. A tiny left apical pneumothorax has slightly increased in size. Left pleural effusion. Leftbasilar chest tube or left upper quadrant surgical drain. Labs: Hgb 14.9 Hct 44.5 Plt 112 WBC 11.0 Na 139 K 4.0 Cl 104 Bicarb 23 BUN 8 Cr 0.59 Glc 2.1 ASSESSMENT / PLAN #1 Fracture Rib Multiple Closed Initial Left #2 Pneumothorax Trauma Initial #3 Acute Respiratory Failure With Hypoxia (HCC) - Left ribs 3-8 lateral, 4-8 posterior; Flail chest left ribs 4-8 - Intubated prior to transport, Extubated on 07/16 - Rib fracture protocol initiated (NIF -60, VC 1.27, pred VC 3.37) - CXR this morning demonstrated new retrocardiac, LLL opacities with slight increase in tiny left apical pneumothorax and left pleural effusion - U/S of lung obtained today, will await results - Encourage aggressive pulmonary hygiene with deep breathing, coughing and use of incentive spirometer at least 10 times per hour while awake - CPAP TID and QHS #4 Major Laceration Spleen Initial #5 Anemia Posthemorrhagic Acute (Blood Loss Anemia) #6 Hypovolemic Shock (HCC) - 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 New Consults 1. PMR: TBI consult 2. PT/OT: safety evaluation 2. Diet: General diet 3. Activity: As tolerated 4. VTE Prophylaxis: Lovenox 30 mg BID 5. GI Prophylaxis: Pantoprazole 6. Bowel Regimen: MiraLAX, Senokot-S 7. Pain: Tylenol, Tramadol, Lyrica x 2 days followed by Gabapentin, Oxycodone 5 mg, Lidoderm, 8. Antibiotics: None 9. Disposition: ICU cares All cares per ICU team. Please page the Trauma service at [phone] if we may be of assistance. ISHER Hayden Matthew M.D. - 07/17/2018 10:46 AM CST Patient seen and evaluated with the trauma team. Nauseated with emesis episode during our team rounds Chest x-ray reveals left lower lobe atelectasis versus sympathetic effusion versus hemothorax Hemoglobin 14.9 Son-Martinez drain with serosanguineous output, 180 cc over the preceding 24 hrs Plan: Clinical clearance of cervical collar, when appropriate Antiemetics Consider nasogastric tube decompression should patient nausea persist Recommend intermittent noninvasive positive pressure ventilatory support for pulmonary recruitment. I suspect the left lower lobe has both an element of atelectasis as well as sympathetic effusion given the left upper quadrant process. Although the patient does have noted left-sided rib fractures 3 through 8 with a flail segment 4 through 8 only the lateral elements of the flail chest are in a position for consideration of stabilization. As it stands now I do not believe that surgical stabilization of these fractures would benefit the patient's pain or pulmonary hygiene. They are not in a position of marked displacement. I have recommended that the patient remain ICU status for pulmonary recruitment and observation. Thetrauma team continues to follow closely. ISHER Karri Barnhart M.D. - 07/17/2018 7:49 AM CST SICU Progress Note SUBJECTIVE Brief history: Yarelis Painting is a 67 y.o. female otherwise fairly healthy, who presented on 07/15/2018 after fall from standing on ice. Sustained a splenic laceration and was initially hypotensive. Massive transfusion protocol was initiated and she underwent urgent splenectomy prior to admission to the SICU. Other injuries are left-sided rib fractures 3 through 8 and tiny left apical pneumothorax. INTERVAL HISTORY: Tolerated extubation yesterday. No issues overnight. OBJECTIVE Physical Exam: General: Awake, alert, not distressed HEENT: C-collar in place Normocephalic. Atraumatic. Conjunctivae non-injected. Sclerae anicteric. Moist mucous membranes. Heart: Regular rate and rhythm. Lungs: No increased work of breathing. Breath sounds clear and symmetric. Abdomen: left BERNY drain. Midline abdominal incision with abdominal binder. Soft, non-tender, non-distended. MSK: Extremities warm. VITALS: Temperature: [37.2 ??C-37.8 ??C] 37.4 ??C Heart Rate: [79-106] 85 Resp Rate: [8-27] 19 Blood Pressure: (107-135)/(56-73) 107/56 Arterial Line BP: (108-146)/(58-73) 137/58 FiO2 (%): [40 %] 40 % SpO2: [91 %-100 %] 99 % Flow Rate (L/min): [2 L/min-2.5 L/min] 2 L/min Pulse Rate: [79-106] 86 I/O/N: Intake/Output Summary (Last 24 hours) at 07/17/18 0750 Last data filed at 07/17/18 0600 Gross per 24 hour Intake 1934.95 ml Output 1834 ml Net 100.95 ml LABS: Recent Results (from the past 24 hour(s)) Glucose, POCT Collection Time: 07/16/18 8:12 AM Result Value Glucose, POCT, B Collected Glucose, POCT Collection Time: 07/16/18 8:12 AM Result Value Glucose, POCT, B 119 Site ARTLINE Glucose, POCT Collection Time: 07/16/18 11:47 AM Result Value Glucose, POCT, B 119 Site ARTLINE Glucose, POCT Collection Time: 07/16/18 11:48 AM Result Value Glucose, POCT, B Collected CBC without Differential Collection Time: 07/16/18 11:48 AM Result Value Hemoglobin 16.0 (H) Hematocrit 46.0 (H) Erythrocytes 5.37 (H) MCV 85.7 RBC Distrib Width 16.6 (H) Platelet Count 128 (L) Leukocytes 9.6 Blood Gas with Coox, Arterial Collection Time: 07/16/18 11:49 AM Result Value pO2 158 (H) pCO2 41 pH 7.36 Base Excess -2 HCO3 23 Hemoglobin, B 16.1 (H) O2Hb 97.3 COHb 1.4 MetHb <1.0 CtO2 22.3 (H) Arterial Sample Site Art Line Patient Status Collection Time: 07/16/18 11:49 AM Result Value FIO2 0.40 Device Vent Glucose, POCT Collection Time: 07/16/18 4:12 PM Result Value Glucose, POCT, B Collected Glucose, POCT Collection Time: 07/16/18 4:12 PM Result Value Glucose, POCT, B 106 Site ARTLINE Glucose, POCT Collection Time: 07/16/18 8:10 PM Result Value Glucose, POCT, B Collected Glucose, POCT Collection Time: 07/16/18 8:10 PM Result Value Glucose, POCT, B 89 Site Capillary Glucose, POCT Collection Time: 07/17/18 12:08 AM Result Value Glucose, POCT, B Collected Glucose, POCT Collection Time: 07/17/18 12:08 AM Result Value Glucose, POCT, B 82 Site Capillary Glucose, POCT Collection Time: 07/17/18 4:15 AM Result Value Glucose, POCT, B 85 Basic Metabolic Panel Collection Time: 07/17/18 4:24 AM Result Value Potassium, S 4.0 Sodium, S 139 Chloride, S 104 Bicarbonate, S 23 Anion Gap 12 Bld Urea Nitrog(BUN), S 8 Creatinine, S 0.59 eGFR-Non Black >90 eGFR-Black >90 Calcium, Total 8.0 (L) Glucose, S 90 CBC without Differential Collection Time: 07/17/18 4:24 AM Result Value Hemoglobin 14.9 Hematocrit 44.5 Erythrocytes 5.09 MCV 87.4 RBC Distrib Width 16.7 (H) Platelet Count 112 (L) Leukocytes 11.0 (H) Magnesium Collection Time: 07/17/18 4:24 AM Result Value Magnesium, S 2.1 Glucose, POCT Collection Time: 07/17/18 4:24 AM Result Value Glucose, POCT, B Collected Microbiology Results (last 72 hours) No results found for the last 72 hours. IMAGING: Ct Head Without Iv Contrast Result Date: 07/16/2018 Impression: IMPRESSION: No acute intracranial findings. Ct Cervical Spine Without Iv Contrast Result Date: 07/16/2018 Impression: IMPRESSION: 1. No acute traumatic findings of the cervical spine. 2. Scattered moderate-advanced degenerative changes of the cervical spine as above. Ct Thoracic Spine Without Iv Contrast, Ct Lumbar Spine Without Iv Contrast Result Date: 07/16/2018 Impression: IMPRESSION: No definitive acute fractures/injury of the thoracic or lumbar spine. Chronic changes as noted. Dx Chest Portable 1 View Result Date: 07/17/2018 Impression: IMPRESSION: Since yesterday the ETT and NG have been removed. New retrocardiac and left lower lung opacities. A tiny left apical pneumothorax has slightly increased in size. Left pleural effusion. Left basilar chest tube or left upper quadrant surgical drain. ASSESSMENT / PLAN #1 Major Laceration Spleen Initial #2 Pneumothorax Trauma Initial #3 Fracture Rib Multiple Closed Initial Left #4 Anemia Posthemorrhagic Acute (Blood Loss Anemia) #5 Hypovolemic Shock (HCC) #6 Acute Respiratory Failure With Hypoxia (HCC) Plan by systems: Hemodynamics/CV: Stable without pressors -HR 80s -SBP 120s -MAP >65 -home medications: None PLAN-- ?Monitor for signs of hemodynamic instability ?MAP Goal >65 ?? Neurologic: -GCS 15. - CT of head and spine were negative yesterday - pain fairly well controlled. -pain regimen: Scheduled Tylenol and tramadol with p.r.n. Oxycodone - continue home sertraline 200 mg daily PLAN-- Continue adequate pain control. Add lidocaine patch, gabapentin, and Lyrica. Pulmonary: Small left pneumothorax on initial CT Chest Rib fractures left 3-8. 4-6 are displaced. - saturating well on 2 L nasal cannula and CPAP overnight -CXR: new left lower lobe and retrocardiac opacity. Likely effusion associated with post splenectomy. Possibly pulmonary contusion or small hemothorax, less likely infectious. PLAN-- ?Rib fracture protocol, pulmonary hygiene. Diuresis. CPAP as tolerated. ?? Renal: -Net: +7.6 L overall. Even balance yesterday -UOP: 1.5 L -was given 20 mg of Lasix overnight. -BMP: potassium 4.0, sodium 139, chloride 104, bicarb 23, creatinine 0.59. - mIVF: None PLAN-- ?Diuresis as above for pulmonary status. Continue to monitor fluid status andelectrolytes. ?? ID: ?? -Tc 37.4 -WBC 11.0 from 9.6 PLAN-- ?Continue to monitor for signs of infection. Will need post splenectomy vaccinations prior to discharge. ?? Heme: Has not required transfusion since massive transfusion protocol was initiated when hypotensive on arrival 07/15/2018. Status post splenectomy for traumatic splenic laceration. -HGB 14.9 from 16.0 -PLT 112 from 120 PLAN-- ? Continue to monitor CBCs. ?? GI/Nutrition: -general diet -abdominal GP drain in place. Output was 205 mL over 24 hr. - bowel regimen: MiraLax, senna, Bentyl, lactobacillus PLAN-- ? Continue the above medication regimen? Endocrine: -No history of diabetes - glucose levels have been normal. Continue to monitor. ?? Musculoskeletal: PLAN-- ?Cervical collar cleared. ?Head and spine CT negative for injury. Rib fracture management as above. Trauma team is discussing the possibility of surgical fixation ofribs. Vascular Access: ??PIV x2 Prophylaxis -DVT: ??SCDs, Lovenox 30 mg b.i.d. -Ulcer: Not indicated Code Status: ??FULL ?? Disposition: ??Consider transfer to the floor today versus tomorrow based on respiratory status and her tolerance of CPAP and pulmonary hygiene. Service pager: [phone] ISHER Associated attestation - Yeison Butt M.D. - 07/17/2018 11:47 AM PLANISHER I have seen, examined, reviewed, and discussed this patient with the [facility] ICU team. Please refer to resident/JAUN/Fellow note for details. I have reviewed pertinent history, physical exam, labs, and imaging. I agree with documented history, objective findings, assessment and plan. ASSESSMENT / PLAN Problem List * (Principal)Major Laceration Spleen Initial Dysthymia Overview Signed 10/31/2016 11:12 AM by [facility] [id number] Dysthymic Disorder (300.4) Pneumothorax Trauma Initial Overview Signed 07/16/2018 4:43 AM by Galo Langford M.D. Left, small Fracture Rib Multiple Closed Initial Left Anemia Posthemorrhagic Acute (Blood Loss Anemia) Hypovolemic Shock (HCC) Acute Respiratory Failure With Hypoxia (HCC) Neurological: Patient following commands with no evidence of TBI. Plan: Continue pain control regimen. Wean sedation. CT head, cervical, thoracic, lumbar spine obtained yesterday and negative for injury. Cervical collar discontinued today as patient had no pain of cervical spine with palpation or active range of motion. Pulmonary: Extubated yesterday. Oxygenating well on 2 L nasal cannula. Left 4 through 9 rib fractures. Small left pneumothorax without significant expansion. Increased consolidation of left lower lobe on morning chest x-ray. Plan: Aggressive pulmonary hygiene. CPAP t.i.d. and q.h.s. Rib fracture protocol. Daily chest x-rays. Cardiovascular: Hemodynamically stable. No pressor requirements or ongoing resuscitation necessary. Plan: Continue to monitor. Renal/Electrolytes: Good urine output. Electrolytes within normal limits. Positive 7.6 L for admission. Plan: Continue to monitor urine output, creatinine, and BUN. Plan diuresis with Lasix. Gastrointestinal: Status post splenectomy. Left upper quadrant drain in place. Small amount of serosanguineous output. Plan: No further operative intervention planned. No evidence of pancreatic leak. . Nutrition: advance to regular diet as tolerated Endocrine: No acute issues. Plan: Monitor glucose. Hematological: Patient received massive transfusion protocol upon arrival. No further blood product resuscitation needed postoperatively. Plan: Monitor CBCs. Infectious Disease: Patient received perioperative antibiotics. No current signs of infection. Plan: Monitor for signs or symptoms of infection. Patient will need post splenectomy vaccinations prior to discharge Musculoskeletal: No extremity injuries. No spine injuries. Plan: Mobilize out of bed as tolerated. Access: Peripheral IVs x2. Plan: Continue. Prophylaxis: Enoxaparin for DVT prophylaxis. No indication for GI prophylaxis. Disposition: Patient will continue in the surgical intensive care unit for ongoing monitoring and treatment given tenuous respiratory status. Treatment discussed with primary service. Critical care time 20 minutes. This is time spent at this critically ill patient's bedside actively involved in patient care, as well as the coordination of care and discussions with the patient's family. This does not include any procedural time which has been billed separately. Kobe Mtz P.T., D.P.T. - 07/16/2018 4:49 PM CST 07/16/18 3449 Reason Therapy Missed Reason Therapy Missed Medical hold Chart review of EMR completed. In AM, patient was intubated and sedated, not following commands. Nursing reported possible plan of extubation later today and weaning of sedation. PT unable to return inafternoon. Will continue to follow. ISHER Ayleen Sun M.S. - 07/16/2018 3:48 PM CST 07/16/18 1548 Reason Therapy Missed Reason Therapy Missed Other (comment) Patient intubated and sedated this morning. Will follow up tomorrow to check status and initiate OT assessment if appropriate. ISHER Annabel Clements P.A.-C. - 07/16/2018 1:41 PM CST SUBJECTIVE Ms. Painting was seen and examined by the Trauma team with Dr. Matthew in her room this morning. She remains in the excellent care of the ICU team. She was intubated and sedated on Propofol this morning. Her urine output was low and she was hypotensive overnight, but responded appropriately to a 500 cc bolus. She was placed on maintenance fluid. She was extubated this afternoon and her hemoglobin is stable. Her OG was removed at the time of extubation. OBJECTIVE VITAL SIGNS Temperature: [36.2 ??C-37.8 ??C] 37.2 ??C Heart Rate: [60-106] 99 Resp Rate: [9-29] 11 Blood Pressure: (87-126)/(50-66) 125/62 Arterial Line BP: (99-155)/(53-77) 112/65 FiO2 (%): [40 %-50 %] 40 % SpO2: [92 %-100 %] 98 % Flow Rate (L/min): [2.5 L/min] 2.5 L/min Pulse Rate: [59-106] 98 I/O last 3 completed shifts: In: 51182.8 [Enteric (NG/OG) Tube:195] Out: 2624 [Urine:1449; Emesis or Enteric Tube:100; Drains:75; Blood:1000] Constitutional: Intubated, sedated female lying flat in bed and in no acute distress Cardiovascular: Normal rate and regular rhythm. Pulmonary/Chest: Effort normal. No respiratory distress. She has no wheezes. Abdominal: Soft, no grimace or withdraw from superficial and deep palpation, nondistended. BERNY drain in LUQ withmore sanguineous than serosanguineous drainage in bulb. Midline incision is covered with bandage, c/d/i. Skin: Skin is warm and dry. Capillary refill takes less than 2 seconds. DIAGNOSTICS Dx Shoulder Left 2+ Views Result Date: 07/16/2018 IMPRESSION: Multiple mildly displaced left rib fractures. The left shoulder is negative for fracture. ET tube. NG tube. Dx Abdomen 1 View Result Date: 07/16/2018 IMPRESSION: No comparison. Enteric tube with tip just beyond the GE junction and the side port approximately 4 cm above the GE junction. This should ideally be advanced at least 15 cm before use. Left upper quadrant surgical drain. Contrast within the bilateral renal collecting systems. Nonobstructivebowel gas pattern. Left SHERRY. Bladder temperature probe. Thoracolumbar curve. Ct Head Without Iv Contrast Result Date: 07/16/2018 IMPRESSION: No acute intracranial findings. Ct Chest With Iv Contrast, Ct Abdomen Pelvis With Iv Contrast Result Date: 07/16/2018 IMPRESSION: 1. Grade IV splenic laceration with active extravasation and a large amount of hemoperitoneum. 2. Tiny left apical pneumothorax. 3. Acute displaced fractures of the left 4th-6th ribs laterally. 4. Acute nondisplaced fractures of the left third, seventh, and eighth ribs laterally. Ct Cervical Spine Without Iv Contrast Result Date: 07/16/2018 IMPRESSION: 1. No acute traumatic findings of the cervical spine. 2. Scattered moderate-advanced degenerative changes of the cervical spine as above. Ct Thoracic Spine Without Iv Contrast, Ct Lumbar Spine Without Iv Contrast Result Date: 07/16/2018 IMPRESSION: No definitive acute fractures/injury of the thoracic or lumbar spine. Chronic changes asnoted. Dx Chest Portable 1 View Result Date: 07/16/2018 IMPRESSION: Since earlier today at 15:49, interval intubation with ET tube above the elise. Enterictube with tip just beyond the GE junction. This should be advanced by approximately 15 cm for optimal position with side-port in the stomach. Left upper quadrant surgical drain. Pulmonary vascular congestion with perihilar streaky opacities. Dx Chest Portable 1 View Result Date: 07/16/2018 IMPRESSION: No significant change since yesterday. ET tube in good position. NG tube with the tip below the diaphragm. Left upper quadrant surgical drain. Left basilar atelectasis. Tiny left pleural effusion. Dx Chest Portable 1 View Result Date: 07/15/2018 IMPRESSION: Mildly displaced fracture of the left lateral fourth and fifth ribs. Trace left pleural effusion or thickening. No consolidation. Heart size and pulmonary vascularity within normal limits. No pneumothorax. Dx Abdomen Portable Anterior Posterior 1 View Result Date: 07/16/2018 IMPRESSION: Since 07/15/2018, interval advancement of the enteric tube with tip and side-port below the diaphragm. Comparison with CT on 07/15/2018 shows that the stomach descends vertically accounting forthe straight course of the enteric tube. Unchanged surgical drain in the left upper quadrant. Contrast within the renal collecting systems. Lab results last 24 hours: AB/41/7.36/-2/23 Hgb 16.0 / 15.3 Hct 46.9 / 44.1 Plt 128 / 121 WBC 9.6 / 8.3 Na 141 K 3.9 Cl 109 Bicarb 21 BUN 13 Cr 0.70 Glc 144 ASSESSMENT / PLAN Mechanism of Injury: Fall from standing on ice #1 Fracture Rib Multiple Closed Initial Left #2 Pneumothorax Trauma Initial #3 Acute Respiratory Failure With Hypoxia (HCC) - Left ribs 3-8 lateral, 4-8 posterior; Flail chest left ribs 4-8 - Intubated prior to transport - AB/41/7.36/-2/ this morning - Extubated around 1300 today - Rib fracture protocol should be implemented now that she is extubated - Encourage aggressive pulmonary hygiene with deep breathing, coughing and use of incentive spirometer at least 10 times per hour while awake #4 Major Laceration Spleen Initial #5 Anemia Posthemorrhagic Acute (Blood Loss Anemia) #6 Hypovolemic Shock (HCC) - 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 New Consults 1. PMR: TBI consult 2. Diet: NPO 3. Activity: As tolerated 4. VTE Prophylaxis: Lovenox 30 mg BID 5. GI Prophylaxis: Pantoprazole 6. Bowel Regimen: MiraLAX, Senokot-S 7. Pain: Tylenol, Tramadol, Oxycodone 5 mg, Fentanyl IV push PRN 8. Antibiotics: None 9. Disposition: ICU cares All cares per ICU team. Please page the Trauma service at [phone] if we may be of assistance. ISHER Hayden Matthew M.D. - 07/16/2018 12:07 PM CST Patient seen and evaluated with the trauma team. Reviewed with Dr. Brown Discussed with Dr. Butt and the Surgical Intensive Care unit team Hemoglobin 15.3 Intubated, sedated with propofol Son-Martinez drain sanguinous in output, holding an appropriate seal Abdomen is soft Feet are cool Chest x-ray reveals persistent small pneumothorax Plan: Wean to extubate Follow-up completion trauma imaging Continue to monitor left-sided pneumothorax In my review of the trauma imaging the patient has left-sided rib fractures 3 through 8, with a flail chest of 4 through 8 ISHER Raghavednra Mason M.B.BYvonneS. - 07/16/2018 11:50 AM CST Miss painting is a 67 year old female who had a slip and fall. She has sustained left-sided rib fractures 4-6 with flail , she has 3, 7 and 8 rib fracture. She had grade 4 splenic injury underwent splenectomy. She had occult pneumothorax. She received a total of 5 FFP, 7 packed red cells, 1 of platelets, 1000 from Cell Saver. She is hemodynamically stable with no base deficit. Will wean propofol and attempt extubation. Will check 1 more hemoglobin and start DVT prophylaxis. Patient Active Problem List Diagnosis ??? Dysthymia ??? Major Laceration Spleen Initial ??? Pneumothorax Trauma Initial ??? Fracture Rib Multiple Closed Initial Left ??? Anemia Posthemorrhagic Acute (Blood Loss Anemia) ??? Hypovolemic Shock (HCC) ??? Acute Respiratory Failure With Hypoxia (HCC) Sean Rios. ISHER Galo Langford M.D. - 07/16/2018 4:09 AM CST Trauma Tertiary Survey (Adult) Admission Date/Time: 07/15/2018 6:26 PM Trauma Level: Red Mechanism of Injury: Slip/Fall on ice from standing height SUBJECTIVE PREHOSPITAL CARE INFORMATION - Vitals: highest heart rate: 102, lowest blood pressure: 77/54 - Origin: [facility] - Mechanism: Fall on ice - Injuries: 3 left rib fractures with spleen laceration - Treatments: Norepinephrine, 2 units RBCs, 4L IVFs Dilaudid, and Zofran x2. ?? HISTORY OF PRESENT ILLNESS This is a 67-year-old female presenting to [facility] via ground ambulance after accidental slip and fall on ice today, complaining of left rib pain. Outside emergency department evaluation demonstrated multiple left rib fractures with splenic laceration and small pneumothorax by CT imaging. She was found to be hypotensive, and blood transfusion was initiated. She reportedly received 2 units PRBC,4 L crystalloid, Dilaudid, Zofran, and norepinephrine infusion prior to arrival at [facility] Emergency Department via EMS transfer. She was found to be hypotensive upon arrival in the resuscitation bay after level red trauma alert. Massive transfusion was initiated, and she was rapidly transferred to the operative theater for splenectomy. She received 7 units PRBC, 5 units FFP, 2 platelets, intraoperative cell saver, and approximately 3L crystalloid. One BERNY drain was placed in the left mid-abdominal region. She remained intubatedpostoperatively, and was transferred to the [facility] SICU without overt hemodynamic instability, on Propofol sedation. The following portions of the patient's history were reviewed as appropriate: allergies, medications, past medical and surgical history, social history. Past Medical History (Reviewed from Care Everywhere): Bilateral asymmetric sensorineural hearing loss 08/30/2017 Status post hip replacement, left 02/16/2017 Panic attacks 10/16/2016 DDD (degenerative disc disease), lumbar 04/24/2016 Pancreatic cyst 02/04/2016 Overview: ?? 8 mm, seen on CT scan ?? 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 + TPO: currently euthyroid (01-28-15): TSH 1.62, TPO 24.24 The presence of positive thyroid antibodies implies an increased lifetime risk (1%/yr) of thyroid dysfunction (hypothyroid, hyperthyroid) compared with the general population. Typically, a plan of annual monitoring would be employed, with prescription reserved for TSH values consistently greater that 5-10.?? Thyroid nodule 06/14/2015 Overview: ?? Multinodular Goiter ( left 0.9): Not otherwise specified, likely benign process. Differential diagnosis includes: benign (95%) vs malignant (5%) Last FNA: None available, reportedly benign fna in [facility]. Last US: (09-30-13, outside records): left 0.9 Plan: periodic ( every 3-5 years) imaging.?? Hyperplastic colonic polyp 12/28/2008 Overview: ?? 01/24/06: due again 2010?? Last Assessment & Plan: ?? Normal in 2010: due in 2015?? Seborrheic dermatitis 04/13/2008 Dysthymic disorder 04/05/2007 Tinnitus of both ears 02/19/2007 Irritable bowel syndrome 05/10/2006 Cervical spondylosis without myelopathy 05/10/2006 Osteopenia 05/10/2006 Overview: ?? 08/2015 DXA scan lowest T score-1.8 Treated with Reclast x 2 doses?? Pure hypercholesterolemia OBJECTIVE Physical Exam: Vitals: Vitals reviewed, as documented, no overt hemodynamic instability General: Intubated, on propofol sedation Head, Eyes: Normocephalic, PERRL, no noted conjunctival injection Neck: Immobilized in hard cervical collar ENT: No external auditory canal edema/ecchymosis, no epistaxis, no septal hematoma, moist mucous membranes, trachea midline Cardiovascular: RRR, no appreciated murmurs, rubs, clicks or gallops, radial and DP/PT pulses are intact, capillary refill is <2 secs Lungs: Grossly clear to auscultation bilaterally, symmetric chest rise on mechanical ventilation Abdomen: Soft, midline vertical abdominal incision with dressing, left mid abdomen BERNY drain Neurologic: GCS 3 T Extremities: Distal pulses intact, no pitting edema Skin: Warm, dry, no noted petechiae, no noted purpura MSK: --RUE: No focal tenderness or gross bony deformity of right clavicle/shoulder/upperarm/elbow/forearm/wrist/hand or fingers. Readily palpable right radial pulse. --LUE: No focal tenderness or gross bony deformity of left clavicle/shoulder/upper arm/elbow/forearm/wrist/hand or fingers. Readily palpable left radial pulse. --Anterior Thorax: No anterior neck or sternal tenderness to palpation. Left lateral chest wall tenderness without paradoxical respiratory variation or crepitus. --Posterior Thorax: No cervical/thoracic/lumbar spine bony stepoffs or edema/ecchymosis. --Hip/Pelvis: No gross bony instability or deformity/shortening, no flank ecchymosis. Readily palpable femoral pulses. --Lower extremities: Scattered abrasions. No focal tenderness, gross bony deformity, effusion, or crepitus. Readily palpable bilateral dorsalis pedis pulses. Dx Abdomen 1 View Result Date: 07/15/2018 Impression: IMPRESSION: No comparison. Enteric tube with tip just beyond the GE junction and the side port approximately 4 cm above the GE junction. This should ideally be advanced at least 15 cm before use. Left upper quadrant surgical drain. Contrast within the bilateral renal collecting systems. Nonobstructive bowel gas pattern. Left SHERRY. Bladder temperature probe. Thoracolumbar curve. Dx Chest Portable 1 View Result Date: 07/15/2018 Impression: IMPRESSION: Since earlier today at 15:49, interval intubation with ET tube above the elise. Enteric tube with tip just beyond the GE junction. This should be advanced by approximately 15 cm for optimal position with side- port in the stomach. Left upper quadrant surgical drain. No pneumothorax, focal opacity, or pleural effusion. Dx Chest Portable 1 View Result Date: 07/15/2018 Impression: IMPRESSION: Mildly displaced fracture of the left lateral fourth and fifth ribs. Trace left pleural effusion or thickening. No consolidation. Heart size and pulmonary vascularity within normal limits. No pneumothorax. Dx Abdomen Portable Anterior Posterior 1 View Result Date: 07/16/2018 Impression: IMPRESSION: Since 07/15/2018, interval advancement of the enteric tube with tip and side-port below the diaphragm. Comparison with CT on 07/15/2018 shows that the stomach descends vertically accounting for the straight course of the enteric tube. Unchanged surgical drain in the left upper quadrant. Contrast within the renal collecting systems. Injuries Identified To Date: 1. Tiny left apical pneumothorax 2. Left fifth-seventh rib fractures. 3. Very mild/trace C2 vertebral body fracture 4. AAST Grade 4 splenic laceration with active extravasation within and outside the organ into a large hematoma New Injuries Identified: 1. Pending CT Head and C/T/L spine imaging and left shoulder plain radiography Incidental Findings: 1. Bovine aortic arch Sutures/Ralston (location and removal dates): 1. Midline abdominal incision for exploratory laparotomy C-spine cleared (radiographically and clinically)?: no Thoracic and Lumbar spine cleared: no ASSESSMENT / PLAN #1 Major Laceration Spleen Initial ?? ASSESSMENT/PLAN ?? Hemodynamics/CV: -HR 59-80 -SBP 87-126 -MAP >65 -Will review home medications when available PLAN-- Monitor for signs of acute hemodynamic instability MAP Goal >65-70 ?? Neurologic: -GCS 3T on propofol sedation -No neuroimaging or C/T/L spine imaging prior to splenectomy -Propofol sedation, Fentanyl for pain upon arrival PLAN-- CT Head and C/T/L spine imaging now Question of C2 vertebral body fracture, incompletely visualized on CT Chest Sedation holiday to facilitate neuro exam Wean sedation as able to facilitate extubation Convert to enteral analgesia when able ?? Pulmonary: -Vent Settings: SIMV, Vt 440ml, PEEP 10, PS 5, RR 16, FiO2 .40 -Small left pneumothorax on initial CT Chest -ABG: pH 7.37, pO2 157, pCO2 38, HCO3 21, Base -3 -CXR IMPRESSION: No significant change since yesterday. ET tube in good position. NG tube with the tip below the diaphragm. Left upper quadrant surgical drain. Left basilar atelectasis. Tiny left pleural effusion. -SpO2 100% PLAN-- Rib fracture protocol Facilitate extubation when able, wean vent settings as able ABG when minimal vent settings ?? Renal: -Net: +7.3L -UOP: 1285ml -BMP: Na 141, K 3.9, Cl 109, HCO3 21, BUN 13, Cr 0.70, Gluc 144, Mg 1.4, Phos 3.1 , iCa 4.77 PLAN-- Strict I/O Monitor for adequate UOP Serial BMP Replete magnesium and potassium ?? ID: -Tc 37C -WBC 8.3 PLAN-- Surveil for signs of infection Post splenectomy vaccinations per trauma protocol ?? Heme: -HGB 15.3<--15.2<--15.4 -PLT 118<--121<--125 PLAN-- TEG wnl Q 6 hr H/H x3 completed, consider initiation of pharmacologic DVT prophylaxis Trend and treat coagulopathy ?? GI/Nutrition: -NPO -OGT placed, minimal output -Meds: Begin bowel regimen when able, Famotidine 20mg BID PLAN-- Await primary surgical team's recommendations for diet advancement ?? Endocrine: -No history of diabetes PLAN-- Goal glucose <180 ?? Musculoskeletal: PLAN-- Place Hale J cervical collar Reevaluate spinal immobilization in AM post extubation and neuroimaging Obtain plain left shoulder radiographs ?? Skin/Drains: -Left mid abdominal BERNY drain placed intraoperatively -BERNY output 60ml PLAN-- Monitor BERNY output ?? Vascular Access: PIV x2, R Radial art line ?? Prophylaxis -DVT: Held due to massive hemoperitoneum, s/p splenectomy -Ulcer: Famotidine ?? Code Status: FULL ?? Disposition: Requires ICU level cares Service pager: [phone] ISHER Associated attestation - Yeison Butt M.D. - 07/16/2018 4:13 PM PLANISHER I have seen, examined, reviewed, and discussed this patient with the [facility] ICU team. Please refer to resident/JAUN/Fellow note for details. I have reviewed pertinent history, physical exam, labs, and imaging. I agree with documented history, objective findings, assessment and plan. ASSESSMENT / PLAN Problem List * (Principal)Major Laceration Spleen Initial Dysthymia Overview Signed 10/31/2016 11:12 AM by [facility] Problem List [id number] Dysthymic Disorder (300.4) Pneumothorax Trauma Initial Overview Signed 07/16/2018 4:43 AM by Galo Langford M.D. Left, small Fracture Rib Multiple Closed Initial Left Anemia Posthemorrhagic Acute (Blood Loss Anemia) Hypovolemic Shock (HCC) Acute Respiratory Failure With Hypoxia (HCC) Neurological: Patient following commands with no evidence of TBI. Plan: Continue pain control regimen. Wean sedation. Obtain CT head, cervical, thoracic, lumbar spine. Pulmonary: Intubated and supported on ventilator. Left 4 through 9 rib fractures. Small left pneumothorax without significant expansion. Plan: Wean ventilator to extubation. Rib fracture protocol. Daily chest x-rays. Cardiovascular: Hemodynamically stable. No pressor requirements or ongoing resuscitation necessary. Plan: Continue to monitor. Renal/Electrolytes: Good urine output. Hypokalemia and hypomagnesemia. Plan: Continue to monitor urine output, creatinine, and BUN. We will replete potassium and magnesium. Gastrointestinal: Status post splenectomy. Left upper quadrant drain in place. Small amount of serosanguineous output. Plan: No further operative intervention planned. No evidence of pancreatic leak. If patient is extubated, oral diet will be started. Patient will need post splenectomy vaccinations prior to discharge. Nutrition: NPO, may start p.o. diet once extubated. Endocrine: No acute issues. Plan: Monitor glucose. Hematological: Patient received massive transfusion protocol upon arrival. No further blood product resuscitation needed postoperatively. Plan: Monitor CBCs. Infectious Disease: Patient received perioperative antibiotics. No current signs of infection. Plan: Monitor for signs or symptoms of infection. Musculoskeletal: Possible C2 fracture on chest CT. Plan: Will follow up cervical spine CT. If no fracture is identified, we will attempt to discontinue cervical collar. Access: Peripheral IVs x2, radial art line. Plan: Continue. Prophylaxis: No current DVT chemoprophylaxis due to bleeding risk. Famotidine for GI prophylaxis. Disposition: Patient will continue in the surgical intensive care unit for ongoing monitoring and treatment. Treatment discussed with primary service. Critical care time 30 minutes. This is time spent at this critically ill patient's bedside actively involved in patient care, as well as the coordination of care and discussions with the patient's family. This does not include any procedural time which has been billed separately. Romario Christianson, Mike.R.T., L.R.T. - 07/15/2018 10:23 PM CST Called to OR at 2038 for patient transport. Patient sedated, intubated and mechanically ventilated (7.0/24@teeth, CMV 330mL, 40%, PEEP 6, rate 18 w/ ABG 7.41/34/208/22). Patient closed and CXR taken toconfirm tube placement/rule out pneumothorax and abdominal xray to confirm NG placement. PIPs 19, Plats 15, Compliance 41, Driving pressure 9. Glidescope was easy intubation per MEDICAL TECHNOLOGIST CLINICAL. Patient transported from OR 106 up to 7B room 14 @ 2202 hours. No issues with transport and RT on 7Bgiven report of left 4th and 5th rib fractures and patient here for splenectomy. 7B RT has no questions at this time and MEDICAL TECHNOLOGIST CLINICAL thanked for help provided. Electronically signed by: Enrique Christianson R.R.T., L.RJyoti 07/15/18 10:26 PM ISHER Yoli Quiros L.G.S.W., M.S.W. - 07/15/2018 6:44 PM CST SUBJECTIVE Patient presents as a trauma page from [facility] ED for medical work up. Patient is not assessed due to receiving urgent medical evaluation. Per flight crew, patient's (Royal, ) was present at referring facility and will be traveling to [facility]. OBJECTIVE Emergency Department social media sr strategy manager responded to the trauma bay in the context of a trauma page. Yarelis Painting was brought by [facility]. ASSESSMENT / PLAN ASSESSMENT Social work did not assess the patient, due to receiving urgent medical workup. PLAN 1. Per flight crew, patient's (Royal, ) was present at referring facility and will be traveling to [facility]. 2. Please contact social work should any needs arise. Chai Kwok, M.S.W. 07/15/2018 ISHER documented in this encounter H&P Notes Galo Langford M.D. - 07/15/2018 7:58 PM CST SUBJECTIVE CHIEF COMPLAINT Yarelis Painting is a 67 y.o. female who presents with accidental slip/fall with splenic injury and hemodynamic instability requiring emergency splenectomy. PREHOSPITAL CARE INFORMATION - Vitals: highest heart rate: 102, lowest blood pressure: 77/54 - Origin: [facility] - Mechanism: Fall on ice - Injuries: 3 left rib fractures with spleen laceration - Treatments: Norepinephrine, 2 units RBCs, 4L IVFs Dilaudid, and Zofran x2. HISTORY OF PRESENT ILLNESS This is a 67-year-old female presenting to [facility] via ground ambulance after accidental slip and fall on ice today, complaining of left rib pain. Outside emergency department evaluation demonstrated multiple left rib fractures with splenic laceration and small pneumothorax by CT imaging. She was found to be hypotensive, and blood transfusion was initiated. She reportedly received 2 units PRBC,4 L crystalloid, Dilaudid, Zofran, and norepinephrine infusion prior to arrival at [facility] Emergency Department via EMS transfer. She was found to be hypotensive upon arrival in the resuscitation bay after level red trauma alert. Massive transfusion was initiated, and she was rapidly transferred to the operative theater for splenectomy. She received 7 units PRBC, 5 units FFP, 2 platelets, intraoperative cell saver, and approximately 3L crystalloid. One BERNY drain was placed in the left mid-abdominal region. She remained intubatedpostoperatively, and was transferred to the [facility] SICU without overt hemodynamic instability, on Propofol sedation. REVIEW OF SYSTEMS Unable due to acuity of condition OBJECTIVE I have reviewed the current vital sign data as applicable to this admission. PHYSICAL EXAM Vitals: Vitals reviewed, as documented, no overt hemodynamic instability General: Intubated, on propofol sedation Head, Eyes: Normocephalic, PERRL, no noted conjunctival injection Neck: Immobilized in hard cervical collar ENT: Moist mucous membranes, no epistaxis, trachea midline Cardiovascular: RRR, no appreciated murmurs, rubs, clicks or gallops, radial and DP/PT pulses are intact, capillary refill is <2 secs Lungs: Grossly clear to auscultation bilaterally, symmetric chest rise on mechanical ventilation Abdomen: Soft, midline vertical abdominal incision with dressing, left mid abdomen BERNY drain Neurologic: GCS 3 T MSK: No gross extremity deformity Extremities: Distal pulses intact, no pitting edema Skin: Warm, dry, no noted petechiae, no noted purpura DIAGNOSTICS I have reviewed relevant laboratory, imaging, and other diagnostics as applicable to this admission. EXAM: DX CHEST PORTABLE 1 VIEW IMPRESSION: Mildly displaced fracture of the left lateral fourth and fifth ribs. Trace left pleural effusion or thickening. No consolidation. Heart size and pulmonary vascularity within normal limits. No pneumothorax. EXAM: CT CHEST WITH IV CONTRAST IMPRESSION: 1. Tiny left apical pneumothorax 2. Left 5th through 7th rib fractures 3. Very mild/trace C2 vertebral body fracture EXAM: CT ABDOMEN PELVIS WITH IV CONTRAST IMPRESSION: 1. AST grade 4 splenic laceration with active extravasation 2. Re demonstrated left 6 through 7th rib fractures with equivocal left 8th rib fracture 3. Miniscule left pleural effusion/hemothorax ASSESSMENT / PLAN #1 Major Laceration Spleen Initial ASSESSMENT/PLAN Hemodynamics/CV: -HR 80 -BP 121/65 -MAP >65 -Will review home medications when available PLAN-- Monitor for signs of acute hemodynamic instability MAP Goal >65-70 Neurologic: -GCS 3T on propofol sedation -No neuroimaging or C/T/L spine imaging prior to splenectomy -Propofol sedation, Fentanyl for pain upon arrival PLAN-- Consider CT Head and C/T/L spine imaging Sedation holiday to facilitate neuro exam Wean sedation as able to facilitate extubation Convert to enteral analgesia when able Pulmonary: -Vent Settings: SIMV, Vt 330ml, PEEP 10, RR 18, FiO2 .50 -Small left pneumothorax on CT Chest -ABG now -CXR in AM unless clinical condition worsens -SpO2 100% PLAN-- Rib fracture protocol Facilitate extubation when able, wean vent settings as able ABG when minimal vent settings Renal: -ICU mcgee catheter placed -Obtain BMP with Mg/Phos PLAN-- Strict I/O Monitor for adequate UOP Serial BMP Replete electrolytes as necessary ID: -Tc 36.4 -WBC 8.9 PLAN-- Surveil for signs of infection Post splenectomy vaccinations per trauma protocol Heme: -HGB/HCT 15.4/45.4 -PLT 125 PLAN-- TEG upon arrival CBC upon arrival Q 6 hr H/H Trend and treat coagulopathy GI/Nutrition: -NPO -NGT placed in OR/PACU, abdominal xray suggests 15 cm advancement -Meds: Begin bowel regimen when able PLAN-- Await primary surgical team's recommendations for diet advancement Consider replacement of NGT/OGT, repeat imaging when able Endocrine: -No history of diabetes PLAN-- Goal glucose <180 Musculoskeletal: PLAN-- Place Hale J cervical collar Reevaluate spinal immobilization in AM TTS in am Skin/Drains: -Left mid abdominal BERNY drain placed intraoperatively PLAN-- Monitor BERNY output Vascular Access: PIV x2, R Radial art line Prophylaxis -DVT: Held due to massive hemoperitoneum, s/p splenectomy -Ulcer: Protonix Code Status: FULL Disposition: Requires ICU level cares Plan reviewed with Dr. Brown. Patient remains in [facility] SICU, please contact via pager [phone] for additional questions. ISHER Shabana Alcazar M.B.B.SYvonne - 07/15/2018 6:48 PM CST SUBJECTIVE CHIEF COMPLAINT Mechanical fall Splenic laceration Trauma Level: Red HISTORY OF PRESENT ILLNESS Ms. Painting is a 67 y.o. female who slipped on ice landing forward and on her left arm. She denies trauma to the head or losing consciousness. She was initially evaluated in [place] where she underwent a CT scan showing 3 left sided rib fractures with splenic laceration and pneumothorax. She developed hypotension and therefore blood transfusion was initiated. She also received vasopressors to support her hemodynamics. In route the patient became more hypotensive with systolics in the 70s. On arrival to the [facility], we elected to proceed to the operating room emergently. Anticoagulation/AntiPlatelet Medications (IP and OP) No history of use. Primary Survey: Please refer to the ED deboning team leader's note Resuscitation: Secondary Survey: Please refer to the ED deboning team leader's note History reviewed. No pertinent past medical history. History reviewed. No pertinent surgical history. Social History: reports that she has quit smoking. She does not have any smokeless tobacco history on file. Family History: family history includes Colon cancer in her brother; Heart disease in her father; Thyroid cancer in her father. OBJECTIVE VITAL SIGNS Temperature: [36.2 ??C-37 ??C] 37 ??C Heart Rate: [71-95] 71 Resp Rate: [16-29] 16 Blood Pressure: (88-111)/(61-66) 107/61 Arterial Line BP: (117-122)/(64-67) 119/64 FiO2 (%): [40 %-50 %] 40 % SpO2: [92 %-100 %] 100 % Pulse Rate: [71-80] 71 RADIOLOGIC FINDINGS Appears to be a grade 5 splenic injury LABORATORY STUDIES Recent Labs 07/15/18229907/15/188 NA 142 141 K -- 3.7 CL -- 108 H CALCIUM -- 8.4 L GLUCOSE 168 H 182 H BUN -- 13 CREATININE -- 0.62 Recent Labs 07/15/18229907/15/18225707/15/18 1923 WBC -- 8.9 -- -- HGB -- 15.4 H < > -- HCT 43.0 45.4 H -- -- PLT -- 125 L < > 86 L INR -- -- -- 1.3 PT -- -- -- 13.9 H APTT -- -- -- 25 < > = values in this interval not displayed. Physical Exam DIAGNOSTICS I have reviewed the labs, xray and diagnostics from admission. ASSESSMENT / PLAN #1 Major Laceration Spleen Initial PLAN This is a 67-year-old lady who presented emergently to the [facility] for evaluation of hypotension in the setting of fall with left-sided rib fractures and splenic laceration. I was personally not involved in this patient's resuscitation as I was in a simultaneous level red resuscitation. Please refer to the ED trauma lead's documentation for more information. Due to continued hypotension despite initiating massive blood transfusion, the patient was emergently transported to the operating room to undergo a trauma exploratory laparotomy to address her splenic injury. Postoperatively, she will proceed to the trauma ICU for close monitoring and appropriate management. ISHER Associated attestation - Lourdes Brown M.D. - 07/16/2018 8:52 AM PLANISHER I have reviewed the patient's chart and history with the trauma team in detail. I agree with findings and documentation. Patient seen and examined. 67-year-old woman who fell from standing height on ice. Denies loss of consciousness. She underwent CT imaging in [place] which showed a splenic laceration with very large blush. Patient was transferred for further evaluation and management became hypotensive on route despite blood resuscitation. Massive blood transfusion protocol was initiated. The patient underwent a rapid assessment which didnot show any other evidence of injury but we did place a cervical collar. And we elected to proceed emergently to the operating room. Discussed briefly with the patient who was in extremis. We are proceeding under emergency conditions. No consent. documented in this encounter Procedure Notes Salty Elena M.D. - 07/18/2018 2:35 PM CSTAssociated Order(s): PLEURAL DRAINS Post-Procedure Diagnose(s): Effusion Pleural Pleural Drains Date/Time: 07/18/2018 3:45 PM Performed by: SALTY ELENA Authorized by: YEISON BUTT Care team members present: Karis Aburto (sedation) Consent Consent obtained: verbal and written Consent given by: patient The benefits, risks and alternatives to the procedure and the potential need for sedation or anesthesia as well as the names, roles, and responsibilities of healthcare team members performing significant interventional tasks were discussed with the patient and/or decision maker: yes The benefits, risks and alternatives to the possible need for blood products were discussed with the patient and/or decision maker: consent for transfusion was obtained Burton protocol All relevant documentation and testing were reviewed and available. All required blood products, implants, devices and/or special equipment were made available as applicable. The pre-procedure verification was conducted, the correct site was marked if required, and the procedural time out was conducted prior to performing the procedure and confirmed in a procedural pause: yes Pre-procedure details: Indications: benign pleural effusion Appropriate hand hygiene, gown, cap, mask, protective eyewear, sterile gloves, skin preparation, sterile drape, and strict aseptic technique were utilized as applicable for the procedure: yes Site preparation: chlorhexidine Sedation/Anesthesia (see MAR for exact dosages): Anesthesia method: procedural sedation and local infiltration Planned sedation level achieved: yes Present during sedation (intra-service time). A trained independent observer assisted with monitoring the patient's level of consciousness and physiological status throughout the procedure (see nursing documentation): yes Patient tolerance of sedation: tolerated well Local infiltrate type: lidocaine Procedure details: Needle decompression: no Placement location: left anterior axillary Intercostal space: 6th Tube type: chest tube Tube size (Fr): 28 Tube characteristics: straight Tube connected to drainage device at: -20 suction Drainage characteristics: serosanguinous (200cc) Ultrasound guidance: no Post-procedure details: Post-insertion x-ray performed: yes X-ray findings: tube in good position Procedure successful: yes Complications: no apparent complications ISHER Rashi De Luna Jr., M.D. - 07/15/2018 8:39 PM CSTAssociated Order(s): CRITICAL CARE Procedure Critical Care Performed by: RASHI DE LUNA JR. Authorized by: RASHI DE LUNA JR. Critical care provider statement: Critical care total time (minutes): 35 Critical care time was exclusive of: Separately billable procedures and treating other patients andteaching time CPR was performed on this patient: no Critical care was necessary to treat or prevent imminent or life-threatening deterioration of the following conditions: Cardiac arrhythmia, circulatory failure, shock, trauma and cardiac failure Critical care was time spent personally by me on the following activities: Blood draw for specimens, development of treatment plan with patient or surrogate, discussions with consultants, evaluation of patient's response to treatment, examination of patient, obtaining history from patient or surrogate, vascular access procedures, review of old charts, re-evaluation of patient's condition, pulse oximetry, ordering and review of radiographic studies, ordering and review of laboratory studies and ordering and performing treatments and interventions I assumed direction of critical care for this patient from another provider in my specialty: no Rashi De Luna Jr., M.D. 07/15/182039 ISHER documented in this encounter Consult Notes Lala Bailey L.G.S.W., M.S.W. - 07/22/2018 9:15 AM CSTAssociated Order(s): IP CONSULT TO CARE MANAGEMENT Psychosocial Assessment SUBJECTIVE public welfare worker received referral to meet with patient for Discharge Planning needs. public welfare worker visited with patient 1:1 in hosptial room on [facility]. Discussed role of social work in hospital. Discussed patient's home environment and discharge plans. Patient reports that her current hospitalization is the result of a fall on the ice, where patient experienced a rib fracture and spleen rupture. A list of senior care facility options (that patient/family geographically resides or requests) has been provided to and reviewed with patient/family. Disclaimers: Financial disclosure provided informing patient of our ownership and financial relationship of the [facility] beds, home health, and hospice agencies. Reviewed insurance coverage, provided patient with in-network options if applicable. No referrals have been placed at this time. Patient plans to get re-evaluated by PT/OT and follow safety recommendations. DEMOGRAPHIC INFORMATION Referral Source: Provider/Service Referral Reason: Psychosocial assessment, Coping, adjustment and support, Discharge Planning Person(s) present during interview: Patient Primary care clinic and provider: Esme Chi MD - [facility] - [phone] Primary Language: Polish Financial Compliance Manager Services Used: No Legal Information: Legal Decision Maker: Self Citizenship: Citizenship: [place] Citizen Resident Status: [place] Resident REASON FOR CONSULT Psychosocial assessment, Coping, adjustment and support, Discharge Planning Disclaimer: The patient was advised regarding the various topics to be interviewed during this evaluation. Patient consented to proceed. The information provided in the assessment is based on review ofthe medical record as well as the face to face interview with the patient. The patient was advised that the content of this interview will be shared with the health care team. It was discussed with thepatient that staff are mandated reporters and they reported understanding. History reviewed. No pertinent past medical history. Past Surgical History: Procedure Laterality Date ??? EXPLORATORY LAPAROTOMY N/A 07/15/2018 Procedure: Exploratory Laparotomy; Surgeon: Lourdes Brown M.D.; Location: [facility] OR ??? SPLENECTOMY N/A 07/15/2018 Procedure: Splenectomy; Surgeon: Lourdes Brown M.D.; Location: [facility] OR SOCIAL HISTORY Family of Origin: Patient was born and raised in [place], [place]. Patient had 2 brothers, 1 of whom isnow . Patient's younger brother, Humphrey, resides in [place], [place]. Marital Status / Family / Household Status: Patient resides with her spouse, Raoul. Patient has 1 daughter, Carey ([place], [place]) and 2 step-children, Lilian ([place]), and Humphrey ([place]). Support Systems: Spouse, Children, Family members. We have not received permission to contact them. 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 Past: None reported. ENVIRONMENTAL SUPPORTS Current Living Situation: Private residence Patient's Home Environment: House Patient resides in a 2-level home with her spouse, Raoul, and a small dog. Patient stated that she does not need to access the basement, and can reside on the main level if needed. Patient has 2 steps to enter the home. Anticipated modifications to the patient's home environment: Patient reports no anticipated modifications needed to the home FUNCTIONAL STATUS (ADL's and IADL's) Functional Status: Independent Assistive Devices: Eyeglasses, Walker, Cane Type of Residence: Private residence Level of Assistance: Independent Dressing: Independent Feeding: Independent Bathing: Independent Grooming: Independent Toileting: Independent Behavior: Oriented Communication: Talks, Understands speaking, Understands Polish It is anticipated that the patient will need assistance with Tasks Appropriate to the Patient's Age/Development, Transportation Use (drive car, use taxi/bus). ASSISTIVE DEVICES Patient has the following equipment: Eyeglasses, Walker, Cane Patient anticipates potentially needing the following additional equipment: Will continue to assess WASHHOUSE WORKER Formal and Informal Resources: Patient is currently receiving individual counseling at [facility] in [place], [place]. Patient is informally supported by her family members. FINANCES/INSURANCE Primary insurance: MEDICARE A AND B Secondary insurance: FOR LIFE Income Information Does the Patient have any Financial Concerns?: No Income/Expense Information: Income meets expenses ADVANCE DIRECTIVES Advance Directives: Patient has advance directive, copy not in chart (in [place]) OBJECTIVE MENTAL HEALTH Mental Health History: Patient reports a history of anxiety and depression, currently managed with medications and individual counseling. Patient has a history of panic attacks, last panic attack was in August 2016. Patient denied current suicidal or homicidal ideation. Current Psychological Symptoms: Patient Appearance: Healthy, Relaxed Behaviors Observed: Calm, Pleasant Patient Level of Consciousness: Alert and oriented Status of Patient's Memory: Intact Patient Cooperation: Cooperative Patient Mood: Euthymic Patient Affect: Mood-congruent Quality of Patient's Speech: Within normal limits for volume, rate and tone Descriptor of Thought Content: No abnormality Thought Process Descriptor: Logical and goal-directed, Intact Concentration: Patient's mental status was not formally tested Perception: Does not appear to respond to internal stimuli Anxiety Symptoms: History of panic attacks, Describes self as a lifelong worrier Depressive Symptoms: No symptoms of depressions Level of Judgement: Intact Suicide Risk and Safety Risk Assessment: Attempted suicide within last 30 days?: No Substance abuse history or abuse within last 30 days?: No Attempting or threatening suicide?: No Attempting or threatening self-harm?: No Expressing suicidal thoughts without intent?: No Expressing self-harm thoughts without intent?: No Recent evidence of psychiatric disorder?: No Response to question indicating hopelessness?: No Isolated from others?: No Mood inconsistent with state of illness?: No Fear of skilled nursing/extended hospitalization?: No Coping with recent loss/disruption in support system?: Yes Homicidal: Homicidal Risk Current Homicidal Ideation: No SUBSTANCE USE Patient denied current substance use concerns Mental Health Treatment History Past Treatments: Psychotherapy, Pharmacotherapy Psychotherapy details: Individual counseling/neurofeedback via [facility] in [place], [place] Current Stressors Current Hospitalization; Decline in independence Coping Skills/Strengths Self-talk, Family support, Time with friends, Insightfulness, Motivation and Time with pets Premorbid level of function, Support of immediate family, Support of extended family/friends, Adaptive/Assistive products, Ability to acquire knowledge, Home design, Attitude of self, Support of pets ASSESSMENT / PLAN IMPRESSION Patient is a 67-year-old female. Alert and oriented x3. Presents casually and adequately dressed. Grooming and hygiene are adequate. Eye contact is adequate. Is pleasant and cooperative. Psychomotor activity is normal. Speech is delivered at a normal rate, rhythm, and volume. Thought processes appear logical, relevant, and goal directed. No delusions, hallucinations, or other positive psychotic symptoms are elicited. Mood appears euthymic and affect appropriate and full. Cognitive functioning is estimated to be in at least the average range of intellectual ability. Judgment appears intact. Patient denied current substance use concerns.Patient reports a history of anxiety and depression, currently managed with medications and individual counseling. Patient has a history of panic attacks, last panic attack was in August 2016. Patient denied current suicidal or homicidal ideation. Patient appears to be coping well with hospitalization at this time. Patient plans to follow PT/OT recommendations upon hospital discharge. Patient appears to have robust family support. Patient deniedadditional questions or concerns at this time. INTERVENTIONS DSM-V: Patient's mental health history is significant for a history of panic attacks, pharmacotherapy and psychotherapy. Role of Social Work Psychosocial Assessment Rappoort Building Emotional Validation PLAN ?? Patient plans to receive PT/OT evaluation, and follow recommendations at hospital discharge. ?? SW will continue to follow for supportive counseling and dismissal planning needs. ?? Please contact social work if this plan is to change. Anticipated barriers to the transition of care/plan: None identified at this time Chai Mederos, M.S.W. 07/22/2018 ISHER Lora Tucker P.T., D.P.T. - 07/17/2018 3:05 PM CST Physical Therapy Inpatient Evaluation/Treatment SUBJECTIVE Patient's Name: Yarelis Painting Referring/Attending Provider: Lourdes Brown M.D. Medical Diagnosis: Major Laceration Spleen Initial [S36.032A] Major Laceration Spleen Initial [S36.032A] Reason for Referral: PT Evaluate and Treat Onset Date: 07/15/18 Payor: MEDICARE / Plan: MEDICARE A AND B / Product Type: Medicare / PERTINENT MEDICAL / SURGICAL HISTORY: Patient Active Problem List Diagnosis ??? Dysthymia ??? Major Laceration Spleen Initial ??? Pneumothorax Trauma Initial ??? Fracture Rib Multiple Closed Initial Left ??? Anemia Posthemorrhagic Acute (Blood Loss Anemia) ??? Hypovolemic Shock (HCC) ??? Acute Respiratory Failure With Hypoxia (HCC) Past Surgical History: Procedure Laterality Date ??? EXPLORATORY LAPAROTOMY N/A 07/15/2018 Procedure: Exploratory Laparotomy; Surgeon: Lourdes Brown M.D.; Location: [facility] OR ??? SPLENECTOMY N/A 07/15/2018 Procedure: Splenectomy; Surgeon: Lourdes Brown M.D.; Location: [facility] OR History of Present Illness: Patient admitted due to fall from standing on ice. 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 4WW per OT note, will need to clarify next session) DME Equipment : Other (adjustable bed without railings) Bathroom Equipment: Shower chair with back, Hand-held shower hose Home Living Type of Home: House Home Layout: One level, Able to Live on Main level with bedroom/bathroom, Laundry main level Home Access: Stairs to enter without rails Entrance Stairs-Rails: None Entrance Stairs-Number of Steps: 2 Bathroom Shower/Tub: Walk-in shower Bathroom Toilet: Standard Bathroom Accessibility: Yes How Accessible: Accessible via walker Family/Caregiver Present: No Patient/Caregiver Goals: Patient hopes to return home and walk again. Patient Comments: Patient resting in bed upon entry - endorses lightheadedness/dizziness with position changes, resolves with rest. In no acute distress. Expresses being open to facility placement prior to going home. Activity Orders None Precautions Other Precautions: rib fracture protocol, pain, fall risk, new respiratory. Neck brace cleared by team /6 Fall Risk (65 and older) Fall in the last 12 months: Yes (Only x1 that led to this hospitalization) Did you have an injury with the fall?: Yes Are you fearful of falling?: No OBJECTIVE Pain Assessment Pain Assessment: 0-10 Numeric Pain Intensity Scale Pain Score: 6 Pain Location: Abdomen Pain Interventions: (Therapist informed RN - RN provided patient with pain medication) Vitals taken during session: Pulse rate: 84 bpm, Blood pressure: 124/66 mmHg, O2 sats: 96 while on 2.5 L at beginning of session. Decreased to 85-86% shortly after RN took off supplemental oxygen. Therapist promptly informed RN and RN turned oxygen supply up to 2L nasal cannula. Sustained saturations above 90% during remainder of session following this.% and O2 flow: 2 L/min nasal cannula Cognition Arousal/Alertness: Appropriate responses to stimuli Orientation: Oriented X4 Following Commands: Follows all commands and directions without difficulty Cognition Comments: Please see Occupational Therapy note for details. Neuro/Integumentary Screen: BERNY tube drain left mid-abdominal region General ROM / Strength Screening ROM - Lower Extremity Screen: Addressed, no concerns noted Strength - Upper Extremity Screen: Impaired left Strength - Lower Extremity Screen: Impaired right & left (Has globally good gross functional, antigravity strength but weakness in stabilizing muscles.) Bed Mobility - Supine to Sit # of Assistants: 1 Level of Assistance: Moderate assistance Device: Other (head of bed elevated) Cuing: Verbal, Tactile Comments: Verbal cuing for patient to walk lower extremities first to edge of bed, cross body reach with left arm. Physical assist provided at trunk in achieving more erect sitting posture. As therapist supported trunk, continued providing cues to walk legs over. Moderate physical assist provided at dermapad to rotate hips/trunk to position body appropriately at edge of bed. Transfer - Sit to Stand # of Assistants: 1 Device: Other (None) Level of Assistance: Moderate assistance Comments: Facilitated sit to stand without gait aid, providing verbal cuing for anterior weight shift and using upper/lower extremities to push off the bed. Physical assist provided at gait belt for balance steadying. Transfer - Stand to Sit # of Assistants: 1 Level of Assistance: Minimal assistance Device: Other (None) Comments: Verbal cuing for reaching hands back for armrest followed with assist at gait belt for eccentric control into sitting. Balance Static Sitting-Balance: Good (Maintains balance without support) Dynamic Sitting-Balance: Fair (Maintains balance with handheld assistance) Static Standing-Balance: Fair (Maintains balance with handheld assistance) Dynamic Standing-Balance: Fair (Maintains balance with handheld assistance) Gait Assessment # of Assistants: 1 Level of Assistance: Moderate assistance Device: None Distance (m): 1 m Surface: level tile, slipper socks Cuing: Verbal, Tactile, Visual Quality: Guarding, Shuffling, Decreased toe off, Decreased heel strike, Decreased base of support Assessment of Gait: Guarded gait with very short stride length and patient taking shuffled steps. Without any gait aid, was with moderate instability. Training/Intervention: Facilitated transfer and gait from hospital bed to bedside chair, verbal cuing for foot clearance, upright posture, and body positioning. Assisted with balance control at gait belt. Response: Continued instability and shuffled steps despite cuing. Stability: Moderate instability. Exercise - Position Seated Exercise: Ankle pumps (Coached in x5 repetitions, instructed to engage in x5 every hour whileawake for prophylactic purposes) Activity Tolerance Endurance: Tolerates less than 10 min exercise, no significant change in vital signs Standing Tolerance: Fair. Is with compromised activity tolerance, limiting factors appearing to be pain and weakness. Learning Assessment Questions None Education provided this session: Educated patient in therapy plan of care and goals. The following coordination of care occurred today: , The Patient's nurse was contacted regarding status and The AVS was initiated Patient was left in bedside chair at end of session with call light in reach, all needs met and questions answered. Outcome Measures FSS-ICU: Rollin= Requires assistance, patient performs between 26%-74% of the amount of work Supine to Sit: 3= Requires assistance, patient performs between 26%-74% of the amount of work Sitting edge of bed: 7= Patient able to sit by themselves without use of a bed rail or other objectfor support Sit to stand: 3= Requires assistance, patient performs between 26%-74% of the amount of work Walkin= Patient can walk less than 50ft with the assistance of one OR two people to physically assist the them Score: 17 (FSS-ICU)/35 AM-[facility] Inpatient Short Form: AM-PAC Mobility: How much difficulty does the patient currently have??? Turning over in bed (including adjusting bedclothes, sheets and blankets)?: A Lot Sitting down on and standing up from a chair with arms (e.g., wheelchair, bedside commode, etc.): A Lot Moving from lying on back to sitting on the side of the bed?: A Lot AM-PAC Mobility: How much help from another person does the patient currently need??? Moving to and from a bed to a chair: A Lot Need to walk in hospital room?: A Lot Climbing 3-5 steps with a railing?: Total Basic Mobility Raw Score: 11 Basic Mobility Standardized Score: 33.86 Interpretation: Clinicians answer the AM-PAC Inpatient Short Form based on observed patient activityand/or clinical judgement (ie. patient can be scored without physically performing each activity) According to scoring guidelines: Those going to home had an average score of 20.1 Those going home with home care had an average score of 17.9 Those going to SNF had an average score of 14 Those going to IRF had an average score of 13.6 Those going to a LTAC had an average score of 11.5 Assessment Barriers to Discharge: Inaccessible home environment Discharge Recommendation: Ongoing skilled therapy recommended in a post-acute setting From a physical therapy perspective, the level of care above has been recommended for Ms. Painting after hospital discharge. This level of care is based on her functional abilities during today's session. This may change throughout the hospital course and will be updated as appropriate. Clinical Impression of today's session: Patient is a pleasant 67 y/o female admitted to [facility] with spleen laceration, left sided rib fractures following a fall on the ice. At baseline, patient functions very independently. Currently, patient presents with impairments including compromised activity tolerance, impaired gait quality, balance deficits, muscle weakness resulting in the following functional deficits: inability tocomplete essential functional transfer tasks out of bed, sit to/from stand and gait at an independent level. Patient's primary limiting factors seem to be pain and overall decreased activity tolerance secondary to compromised respiratory status. She is globally requiring moderate assist of x2 for bed mobility, sit to/from stands, and ambulation and is below her baseline level of function. At this point of assessment, from a physical therapist perspective patient will strongly benefit from ongoing skilled physical therapy in both the acute and subacute care setting to train in gait, balance, strength to optimize her functional independence and work toward homegoing. Rehab potential: Ms. Painting has Good potential to achieve established physical therapy goals within the time frame outlined below. Tiered PT Evaluation Codes: Personal Factors: Age, Needs assistive device, Living situation Examination elements: 3 Clinical Presentation: Evolving Clinical Decision Making: Moderate: 1-2 complicating factors, 3 eval elements, evolving clinical presentation Functional Goals: PT Inpatient Goals PT Goal #1: Patient will complete rolling and supine to/from sit with modified independence to demonstrate improved functional independence. PT Goal #2: Patient will complete sit to/from stand with modified independence, least restrictive gait aid, to demonstrate improved functional independence. PT Goal #3: Patient will ambulate 45m with modified independence, least restrictive gait aid, to demonstrate improved functional independence. PT Goal #4: Patient will negotiate 2 steps with no railing, least restrictive gait aid, to demonstrate improved functional independence and work toward homegoing. Progress: Progressing toward goals Plan Patient agrees with the plan of care and goals. Treatment Plan: Plan: Plan of care initiated PT Frequency: 5x/week PT Duration: Until goals met or hospital discharge. Requires Inpatient Follow-Up: Yes PT - Next Inpatient Appointment: 07/18/18 Plan Comments: Progress gait training with front wheeled walker, consider chair follow. Continue advancing functional mobility as able and progress exercises. Treatment interventions may include: Therapeutic exercise, Therapeutic functional activity, Neuromuscular re- education, Self-care/home management, Gait training Billing: Time Spent with Patient PT Evaluation (min): 17 min Gait Training (min): 7 min Therapeutic Activity (min): 16 min Total Timed Units (min): 23 min Total Treatment Time (min): 40 min Functional G-code Worksheet Basic Mobility Raw Score: 11 Basic Mobility Standardized Score: 33.86 CMS 0-100% Score: 72.57 % Basic Mobility CMS Modifier: SARAH Tucker P.T., D.P.T. ISHER Ayleen Sun M.S. - 07/17/2018 1:36 PM CST Occupational Therapy Acute Hospital Inpatient Evaluation/Treatment SUBJECTIVE Patient's Name: Yarelis Painting Referring/Attending Provider: Lourdes Brown M.D. Medical Diagnosis: Major Laceration Spleen Initial [S36.032A] Major Laceration Spleen Initial [S36.032A] Reason for Referral: Occupational Therapy Evaluation and Treatment Onset Date: 07/16/18 Payor: MEDICARE / Plan: MEDICARE A AND B / Product Type: Medicare / PERTINENT MEDICAL / SURGICAL HISTORY: Patient Active Problem List Diagnosis ??? Dysthymia ??? Major Laceration Spleen Initial ??? Pneumothorax Trauma Initial ??? Fracture Rib Multiple Closed Initial Left ??? Anemia Posthemorrhagic Acute (Blood Loss Anemia) ??? Hypovolemic Shock (HCC) ??? Acute Respiratory Failure With Hypoxia (HCC) Past Surgical History: Procedure Laterality Date ??? EXPLORATORY LAPAROTOMY N/A 07/15/2018 Procedure: Exploratory Laparotomy; Surgeon: Lourdes Brown M.D.; Location: [facility] ??? SPLENECTOMY N/A 07/15/2018 Procedure: Splenectomy; Surgeon: Lourdes Brown M.D.; Location: [facility] History of Present Illness:Patient admitted due to fall from standing on ice. 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 Doesnt use) Bathroom Equipment: Shower chair with back, Hand-held shower hose Family/Caregiver Present: No Patient/Caregiver Goals: To reduce pain and return home Patient Comments: Patient reporting 4/10 pain throughout entire session. Noted dizziness after positional changes, resolved with rest. Activity Orders None Precautions Other Precautions: rib fracture protocol, pain, fall risk, new respiratory. Neck brace cleared by team 2/6 Fall Risk (65 and older) Fall in the last 12 months: Yes Did you have an injury with the fall?: Yes (reason for hospitalization) OBJECTIVE Blood pressure: 126/60*80), heart rate 81bpm, RR:22, Sp02:97% on 2 liters Activity Tolerance Endurance: Tolerates less than 10 min exercise, no significant change in vital signs Sitting Tolerance: pain limiting. Able to sit edge of bed for 5 minutes with adequate tolerance Standing Tolerance: Fatigued quickly due to weakness and pain. Completed household distance Balance Static Sitting-Balance: Good (Maintains balance without support) Dynamic Sitting-Balance: Fair (Maintains balance with handheld assistance) Static Standing-Balance: Fair (Maintains balance with handheld assistance) Dynamic Standing-Balance: Fair (Maintains balance with handheld assistance) General ROM / Strength Screening ROM - Upper Extremity Screen: Impaired left (due to fall on left side. Unable to flex shoulder past 100 due to pain) Strength - Upper Extremity Screen: Impaired left Cognition Arousal/Alertness: Appropriate responses to stimuli Memory: Addressed, no concerns noted Orientation: Oriented X4 Following Commands: Follows all commands and directions without difficulty Impulsive: Addressed, no concerns noted Cognition Comments: Did not warrant formal testing. Will continue to follow Current ADL/IADL Function ADL Comments: see [facility] Bed Mobility - Supine to Sit # of Assistants: 1 Level of Assistance: Moderate assistance Device: (head of bed elevated) Cuing: Verbal Comments: Cued patient to walk over lower extremities to edge of bed and use right arm to help pull up into sitting. Increased pain noted with task, resulting in moderate physical assistance Bed Mobility - Sit to Supine # of Assistants: 2 Level of Assistance: Minimal assistance Cuing: Verbal, Tactile Comments: cues to lay down on right shoulder, however patient rolling back midway through. Assist needed at trunk and lwoer extremities Bed Mobility - Scooting # of Assistants: 1 Level of Assistance: Minimal assistance Cuing: Verbal, Tactile Comments: difficult time scooting foward using UE's (pain). Used derma pad to complete task Transfer - Sit to Stand # of Assistants: 2 Device: Front wheeled walker Level of Assistance: Moderate assistance Comments: Patient able to initiate, however required phsyical assistance due to forward flexed posture and difficulty getting into full upright standing. Transfer - Stand to Sit # of Assistants: 2 Level of Assistance: Minimal assistance Device: Front wheeled walker Comments: cues to reach back to chair for controlled, safe descent. REquired physical assistance to safely complete LE Dressing LE Dressing Level of Assistance: Maximal assistance LE Dressing Where Assessed: Edge of bed LE Dressing Delivery: Instructed, Practiced LE Dressing Comments: attempted figure four position for doffing socks. Able to initiate, but pain limiting factor. Patient reports she owns a sock aid, but hasn't really used it ADL Comments ADL Comments: Completed all above functional transfers and bed mobility. Once standing edge of bed with front wheeled walker, patient able to demonstrate marching in place with minimal assistance x2. Cues to look up and correct slight forward flexed posture. Encouraged household distance mobility before sitting into chair. Patient progressed just past doorway as therapist and nursing providing minimal assistance. Noted patient to be insightful of her distance and her stamina. Returned into room and towards chair for lower body dressing (above). Patient reported her would be able to assist 24 hours a day. Her daughter also lives 3 blocks away. Discussed how patient may progress well during stay. Unfortunately, patient was unable to tolerate sitting up in chair due to woozy feeling and fatigue. Returned to bed with more effort. All needs met Education provided today: briefly educated patient on adaptive equipment (sock aid, shower chiar). Patient noted she owns these objects from past hip surgery Communication: The patient's nurse was contacted and patient's status was discussed. Patient was left in bed at end of session with call light in reach, all needs met and questions answered. Outcome Measures Current ADL Status: [facility] Inpatient Short Form: Putting on and taking off regular lower body clothing?: A lot Putting on and taking off regular upper body clothing?: A lot Taking care of personal grooming such as brushing teeth?: A Little Bathing (including washing, rinsing, drying)?: A lot Toileting, which includes using toilet, bedpan, or urinal?: A lot Eating meals?: A Little Daily Activities Raw Score (max 24): 14 Daily Activities Standardized Score: 33.39 Daily Activities CMS 0-100% Score: 59.67 Daily Activities [facility] Modifier: CK Interpretation: Clinicians answer the [facility] Inpatient Short Form based on observed patient activityand/or clinical judgement (ie. patient can be scored without physically performing each activity) According to scoring guidelines: Those going to home had an average score of 20.1 Those going home with home care had an average score of 17.9 Those going to SNF had an average score of 14 Those going to IRF had an average score of 13.6 Those going to a LTAC had an average score of 11.5 Assessment Discharge Recommendation: 24 hour supervision (Presume patient will progress well once pain controlled. Currently, patient needs 24 hour assistance/supervision for all self-cares and functional transfers. Will continue to assess) Recommended Adaptive Equipment OT: Ban muñiz Clinical Impression: Patient presenting to [facility] after a fall on the ice. She sustained a splenic laceration and left-sidedrib fractures 3 through 8. She is currently limited by pain, generalized weakness, and low activity tolerance. Able to perform functional transfers with min-moderate assistance x2 and self-cares with grossly moderate-maximal assistance. Performed household distance mobility with 2 person assistance primarily due to fatigue, pain, and weakness. Cognitively, patient appearing appropriate with good problem solving and safety awareness. OT will continue to provide skilled therapy to advance her self-care/IADLs independence and safety. AT this time, patient requires 24 hour assistance with all self-cares, IADLS, and functional transfers. Rehab potential: Ms. Painting has Excellent potential to achieve established occupational therapy goals within the time frame outlined below. Tiered OT Evaluation Codes: Occupational Profile and History review: Expanded Performance Deficits: 3 - 5 performance deficits Evaluation Complexity: Moderate Functional Goals: OT Goal #1: Patient will perform full body dressing with modifed independence to decrease caregiver assistance by d/c OT Goal #2: Patient will verbalize 3 new activity modifications for home to optimize safety and functional independence by d/c OT Goal #3: Patient will complete full toielting process (transfer, genesis cares, clothing management)with supervision to optimize independence by d/c OT Goal #4: Patient will complete bed mobility with supervision to progress self-care independence by d/c Progress: Progressing toward goals Plan Patient agrees with the plan of care and goals. Plan: Plan of care initiated OT Frequency: 5x/wk OT Duration: until goals met or hospital discharge Requires Inpatient Follow-Up: Yes OT - Next Inpatient Appointment: 07/18/18 Plan of care initiated Comments: Next session: sock aid for lower body dressing(patient owns one, doesn't use), toileting, bed mobility Treatment interventions may include: Therapeutic exercise, Therapeutic functional activity, Self-care/home management Billing: Time Spent with Patient OT Evaluation (min): 12 min Home Management Training (min): 24 min Time Calculation Total Timed Units (min): 24 min Total Treatment Time (min): 36 min Functional G-code Worksheet Daily Activities Raw Score (max 24): 14 Daily Activities Standardized Score: 33.39 Daily Activities CMS 0-100% Score: 59.67 Daily Activities CMS Modifier: CK Ayleen Natter, M.S. Rosalina Hallman M.D. - 07/17/2018 10:25 AM CSTAssociated Order(s): IP CONSULT TO PHYSICAL MEDICINE & REHABILITATION SUBJECTIVE Reason for Consult Physical Medicine and Rehabilitation consult (hospital) Referring Provider: MOUSTAPHA KNOTT Reason for Consult: polytrauma History of Present Illness Ms. Painting is a 67 y.o. female who was getting her daughter's mail from the mailbox when she slipped on ice and fell from standing height, landing on her left side. She denies LOC. Her happened to be backing out of the driveway and saw her on the ground and came to her aid. GCS 15 on arrival. She was found to have left rib fractures, pneumothorax and splenic rupture requiring splenectomy. She denies any headache, double/blurry vision, lightheadedness, dizziness, vertigo, new/worsened tinnitus (has baseline that she reports is unchanged), numbness/tingling, difficulty with speech, word finding difficulty, light/sound sensitivity. She reports feeling fatigue and slowed from pain medications. The following portions of the patient's history were reviewed and updated as appropriate: allergies,current medications, family history, medical history, social history, surgical history, problem list, labs, diagnostics tests.. I reviewed the pertinent clinical notes in the electronic health record. Review of Systems Pertinent items are noted in HPI; all other review of systems were negative. OBJECTIVE Temperature: [37.2 ??C-37.8 ??C] 37.4 ??C Heart Rate: [79-106] 82 Resp Rate: [8-27] 24 Blood Pressure: (107-135)/(56-73) 125/66 Arterial Line BP: (108-146)/(58-73) 137/58 FiO2 (%): [40 %] 40 % SpO2: [91 %-100 %] 98 % Flow Rate (L/min): [2 L/min-2.5 L/min] 2 L/min Weight: [76 kg] 76 kg BMI (Calculated): [26.3 kg/m??] 26.3 kg/m?? Physical Exam GENERAL: Alert. No acute distress. HEENT: Normocephalic, atraumatic. LUNGS: Unlabored breathing pattern. Normal rate. MENTAL STATUS: Grossly oriented with appropriate mood and affect. CRANIAL NERVES: Extra ocular muscles intact. Visual saunders grossly intact. No dysconjugate gaze. No facial droop. MOTOR SPEECH: No dysarthria. Normal prosody, phonation, resonation, and articulation. LANGUAGE: Normal, nonaphasic. Follows commands consistently MUSCLE STRENGTH: Activates all four limbs with functionally intact strength with the exception of give away weakness and guarding of left upper extremity due to aggravation of pain in left chest wall and abdomen where there are known injuries. COORDINATION: Grossly normal. Diagnostics I reviewed the imaging studies and agree with the interpretation as recorded. I reviewed the pertinent laboratory and diagnostic data. ASSESSMENT / PLAN #1 Major Laceration Spleen Initial #2 Pneumothorax Trauma Initial #3 Fracture Rib Multiple Closed Initial Left #4 Anemia Posthemorrhagic Acute (Blood Loss Anemia) #5 Hypovolemic Shock (HCC) #6 Acute Respiratory Failure With Hypoxia (HCC) Although Ms Painting is at risk for having had a possible concussion given the mechanism of injury and the severity of her other traumatic injuries, my suspicion for it is low. She did not have LOC or feel dazed/disoriented, CT head was unremarkable for acute intracranial injury, GCS 15, and she is largely asymptomatic in regards to common symptoms associated with concussions (her fatigue and slowingmay be related to medication side effect). Continue to monitor for symptoms, particularly as she requires less pain medications. PT and OT have been ordered to evaluate and treat. I anticipate that pending pain control, she mightbe able to return to her home environment versus short- term placement. ISHER Rosalina Jeffery M.D. - 07/16/2018 11:12 AM CST PM&R physician consultation received. EMR reviewed and discussed case briefly with [facility]. Patient remains intubated and sedated. Will plan to return as patient's medical status allows and is appropriate for PM&R evaluation. ISHER documented in this encounter Nursing Notes Rashmi Snow R.N. - 07/22/2018 6:49 PM CST IV removed, education completed-no questions at this time. Vitals signs are stable. Patient is discharging home with . Home health care will be provided by [facility]. Report was called 07/22/18. [facility] will contact patient with first visit once patient has been staffed. Patient willbe escorted to the front door via wheelchair. ISHER Rashmi Snow R.N. - 07/22/2018 4:27 PM CST Goals: Clinical Goals for the Shift: Pain control, Saftey, Rest Identify possible barriers to meeting goals/advancing plan of care: Pain from rib fractures Stability of the patient: Moderately Stable - Low risk of patient condition declining or worsening End of Shift Summary: Patient still complains of pain but states it is tolerable at this time. She is ok with Tylenol and Tramadol as prescribed for pain. Patient remains safe and free from falls, and is getting to the bathroom independently. ISHER Nallely Banks R.RJyoti, L.R.T. - 07/21/2018 10:25 PM CST Plan of Care: Patient is ordered for CPAP therapy for hyperinflation both TID and at night. Patient refused evening treatment indicating she would wear CPAP overnight. Patient is up and walking the hallways. Hospital equipment inspected, settings verified (10 cmH2O), no supplemental oxygen in line. Liquicell is in place. Patient was placed onto CPAP/BiPap for sleeping. Equipment will be inspected each shift. Electronically signed by: Nallely Banks R.R.T., L.R.TYvonne 07/22/18 1:41 AM Bebo Cherry R.N. - 07/21/2018 7:38 PM CST Goals: Clinical Goals for the Shift: Pain control, Saftey, Rest Identify possible barriers to meeting goals/advancing plan of care: Polytrauma Stability of the patient: Moderately Stable - Low risk of patient condition declining or worsening End of Shift Summary: Ms Painting slept well. Her dressing was changed once overnight. She ambulatedover 180 feet with minimal assistance and tolerated this well. She stated that her pain was well controlled with tylenol and tramadol. Her vital signs were with in normal limits. She tolerated CPAP foronly 2 hours. Compromised Skin Integrity ??? Incisions, wounds, or drain sites healing without S/S of infection Progressing ??? Skin/Tissue integrity maintained or improved Progressing ??? Oral and Nasal mucous membranes remain intact Progressing DISCHARGE PLANNING ??? Patient discharge needs identified Progressing Incontinence and/or Moisture ??? Skin integrity is maintained or improved Progressing INFECTION - ADULT ??? Absence of infection during hospitalization Progressing KNOWLEDGE DEFICIT ??? Patient/family/caregiver demonstrates understanding of disease process, treatment plan, medications, and discharge instructions Progressing PAIN - ADULT ??? PT VERBALIZES/DEMONSTRATES ADEQUATE COMFORT LEVEL OR BASELINE Progressing POTENTIAL OR ACTUAL PRESSURE INJURY-ADULT ??? Manage sensory Perception deficits to maintain and/or improve skin integrity Progressing ??? Maintain optimal skin moisture to ensure or improve skin integrity Progressing ??? Achieve optimal activity and/or mobility to maintain or improve skin integrity Progressing ??? Nutrient intake appropriate for improving, restoring or maintaining skin integrity Progressing ??? Minimize friction and/or shear to maintain or improve skin integrity Progressing SAFETY ADULT ??? Maintain a safe environment Progressing SAFETY ADULT - RISK FOR FALL AND OR FALL INJURY ??? Patient remains free from fall/fall injury Progressing SKIN/TISSUE INTEGRITY ??? Skin/Tissue integrity maintained or improved Progressing ??? Oral and Nasal mucous membranes remain intact Progressing Electronically signed by: Bebo Moctezuma R.N. 07/22/18 6:01 AM Hayden Alberts R.N. - 07/21/2018 5:50 PM CST Goals: Clinical Goals for the Shift: Patient will have adequate pain control and be up in the chair for meals Identify possible barriers to meeting goals/advancing plan of care: Pain management. Stability of the patient: Moderately Stable - Low risk of patient condition declining or worsening End of Shift Summary: Patient had reasonable pain management throughout shift. Patient spent the majority of the day out of bed in chair and participated in use of incentive spirometer through out the day. Pain reported as reasonable per patient. ISHER Rosalie Kim R.N. - 07/20/2018 6:02 PM CST Goals: Clinical Goals for the Shift: Patient will have adequate pain control and be up in the chair for meals Identify possible barriers to meeting goals/advancing plan of care: surgical pain, rib fx, fatigue Stability of the patient: Moderately Stable - Low risk of patient condition declining or worsening End of Shift Summary: pain was controlled on scheduled tylenol and tramadol, did not require PRN oxy. Patient was up to chair once today but had lots of family visits and trips to the bathroom. Additionally, chest tube was pulled this afternoon, however the site continues to leak significantly upon movement and required several changes throughout the day. ISHER Dianne Page R.N. - 07/20/2018 2:52 AM CST Goals: Pain will be controlled and patient will get >4 hours sleep. Identify possible barriers to meeting goals/advancing plan of care: n/a Stability of the patient: Moderately Stable - Low risk of patient condition declining or worsening End of Shift Summary: Patient reports adequate pain control with current pain medication regimen. Patient was able to sleep about 6 hours last night. ISHER Brigette Kumar, R.R.T., L.R.T. - 07/20/2018 1:42 AM CST Non-Invasive Support: BPAP/CPAP Interface: Full face mask BPAP/CPAP Interface Size: Medium BPAP/CPAP Mode: CPAP NPPV EPAP (CPAP) Settin cm H2O Patient placed on CPAP for the night. RT will continue to assist with hyperinflation therapy TID andQHS. Electronically signed by: Brigette Kumar R.R.T., L.RJyoti 07/20/18 1:42 AM ISHER Rissa Villalta R.N. - 07/19/2018 6:36 PM CST Compromised Skin Integrity ??? Incisions, wounds, or drain sites healing without S/S of infection Progressing ??? Skin/Tissue integrity maintained or improved Progressing ??? Oral and Nasal mucous membranes remain intact Progressing DISCHARGE PLANNING ??? Patient discharge needs identified Progressing Incontinence and/or Moisture ??? Skin integrity is maintained or improved Progressing INFECTION - ADULT ??? Absence of infection during hospitalization Progressing KNOWLEDGE DEFICIT ??? Patient/family/caregiver demonstrates understanding of disease process, treatment plan, medications, and discharge instructions Progressing PAIN - ADULT ??? PT VERBALIZES/DEMONSTRATES ADEQUATE COMFORT LEVEL OR BASELINE Progressing POTENTIAL OR ACTUAL PRESSURE INJURY-ADULT ??? Manage sensory Perception deficits to maintain and/or improve skin integrity Progressing ??? Maintain optimal skin moisture to ensure or improve skin integrity Progressing ??? Achieve optimal activity and/or mobility to maintain or improve skin integrity Progressing ??? Nutrient intake appropriate for improving, restoring or maintaining skin integrity Progressing ??? Minimize friction and/or shear to maintain or improve skin integrity Progressing SAFETY ADULT ??? Maintain a safe environment Progressing SAFETY ADULT - RISK FOR FALL AND OR FALL INJURY ??? Patient remains free from fall/fall injury Progressing SKIN/TISSUE INTEGRITY ??? Skin/Tissue integrity maintained or improved Progressing ??? Oral and Nasal mucous membranes remain intact Progressing Goals: Clinical Goals for the Shift: Patient will have adequate pain control and ambulate twice. Identify possible barriers to meeting goals/advancing plan of care: None Stability of the patient: Moderately Stable - Low risk of patient condition declining or worsening End of Shift Summary: Pain controlled with tylenol and tramadol. Ambulated in hallway twice. Romaine Villatoro R.N. - 07/19/2018 5:39 AM CST Compromised Skin Integrity ??? Incisions, wounds, or drain sites healing without S/S of infection Progressing ??? Skin/Tissue integrity maintained or improved Progressing ??? Oral and Nasal mucous membranes remain intact Progressing DISCHARGE PLANNING ??? Patient discharge needs identified Progressing Incontinence and/or Moisture ??? Skin integrity is maintained or improved Progressing INFECTION - ADULT ??? Absence of infection during hospitalization Progressing KNOWLEDGE DEFICIT ??? Patient/family/caregiver demonstrates understanding of disease process, treatment plan, medications, and discharge instructions Progressing PAIN - ADULT ??? PT VERBALIZES/DEMONSTRATES ADEQUATE COMFORT LEVEL OR BASELINE Progressing POTENTIAL OR ACTUAL PRESSURE INJURY-ADULT ??? Manage sensory Perception deficits to maintain and/or improve skin integrity Progressing ??? Maintain optimal skin moisture to ensure or improve skin integrity Progressing ??? Achieve optimal activity and/or mobility to maintain or improve skin integrity Progressing ??? Nutrient intake appropriate for improving, restoring or maintaining skin integrity Progressing ??? Minimize friction and/or shear to maintain or improve skin integrity Progressing SAFETY ADULT ??? Maintain a safe environment Progressing SAFETY ADULT - RISK FOR FALL AND OR FALL INJURY ??? Patient remains free from fall/fall injury Progressing SKIN/TISSUE INTEGRITY ??? Skin/Tissue integrity maintained or improved Progressing ??? Oral and Nasal mucous membranes remain intact Progressing Goals: Clinical Goals for the Shift: Pain control, sleep enhancement, and maintence of chest tube. Identify possible barriers to meeting goals/advancing plan of care: pain Stability of the patient: Moderately Unstable - Medium risk of patient condition declining or worsening End of Shift Summary: Pain was well controlled. Chest tube had high output, but decreased drastically after dressing change and site cares. Santo Valentin, R.R.T., L.R.T. - 07/19/2018 12:12 AM CST Non-Invasive Support: BPAP/CPAP Interface: Full face mask BPAP/CPAP Interface Size: Medium Patient's Own Equipment: CPAP BPAP/CPAP Mode: CPAP NPPV EPAP (CPAP) Settin cm H2O Patient is currently on CPAP with 2 L bled in. Will continue to assist at night with cpap. Electronically signed by: Santo Keyes R.R.T., L.R.T. 07/19/18 12:12 AM ISHER Rachelle Diamond R.N. - 07/18/2018 6:12 PM CST Compromised Skin Integrity ??? Incisions, wounds, or drain sites healing without S/S of infection Progressing ??? Skin/Tissue integrity maintained or improved Progressing ??? Oral and Nasal mucous membranes remain intact Progressing DISCHARGE PLANNING ??? Patient discharge needs identified Progressing Incontinence and/or Moisture ??? Skin integrity is maintained or improved Progressing INFECTION - ADULT ??? Absence of infection during hospitalization Progressing KNOWLEDGE DEFICIT ??? Patient/family/caregiver demonstrates understanding of disease process, treatment plan, medications, and discharge instructions Progressing PAIN - ADULT ??? PT VERBALIZES/DEMONSTRATES ADEQUATE COMFORT LEVEL OR BASELINE Progressing POTENTIAL OR ACTUAL PRESSURE INJURY-ADULT ??? Manage sensory Perception deficits to maintain and/or improve skin integrity Progressing ??? Maintain optimal skin moisture to ensure or improve skin integrity Progressing ??? Achieve optimal activity and/or mobility to maintain or improve skin integrity Progressing ??? Nutrient intake appropriate for improving, restoring or maintaining skin integrity Progressing ??? Minimize friction and/or shear to maintain or improve skin integrity Progressing SAFETY ADULT ??? Maintain a safe environment Progressing SAFETY ADULT - RISK FOR FALL AND OR FALL INJURY ??? Patient remains free from fall/fall injury Progressing SKIN/TISSUE INTEGRITY ??? Skin/Tissue integrity maintained or improved Progressing ??? Oral and Nasal mucous membranes remain intact Progressing Goals: Clinical Goals for the Shift: Mobilize and control pain Identify possible barriers to meeting goals/advancing plan of care: Unexpected pain Stability of the patient: Moderately Stable - Low risk of patient condition declining or worsening End of Shift Summary: Patient was able to mobilize and her pain was well controlled. ISHER Larissa Sosa R.RJyoti, L.R.T. - 07/18/2018 4:34 PM CST Patient is a 67 y.o. female admitted on 07/15/2018 Alert Information: Plan of Care: Monitor respiratory status while in ICU. Provide supplemental oxygen via nasal cannula, wean as tolerated. Encourage coughing, deep breathing, and IS use. Provide CPAP TID and overnight for lung expansion. Assist with conscious sedation chest tube placement. Patient very sleepy afterwards and placed on CPAP. Principal Problem Major Laceration Spleen Initial Oxygen Therapy $Delivery Method: CPAP History Smoking Status ??? Former Smoker Smokeless Tobacco ??? Not on file No results for input(s): PO2 ART, PCO2 ART, PH ART in the last 24 hours. Skin integrity checked: Skin clean and intact with no areas of redness on the face, nose, neck or ears. LiquiCell?? applied to the bridge of the nose. ISHER Bebo Angeles R.RJyoti, L.R.T. - 07/17/2018 10:32 PM CST Non-Invasive Support: BPAP/CPAP Interface: Full face mask BPAP/CPAP Interface Size: Medium Patient's Own Equipment: CPAP BPAP/CPAP Mode: CPAP NPPV EPAP (CPAP) Settin cm H2O Patient is a 67 y.o. female admitted on 07/15/2018 Alert Information: Plan of Care: Continue with cpap TID/ NOC for lung expansion. Encourage deep breathing and coughing. Principal Problem Major Laceration Spleen Initial Oxygen Therapy $Delivery Method: Nasal cannula History Smoking Status ??? Former Smoker Smokeless Tobacco ??? Not on file No results for input(s): PO2 ART, PCO2 ART, PH ART in the last 24 hours. Skin integrity checked: Skin clean and intact with no areas of redness on the face, nose, neck or ears. LiquiCell?? applied to the bridge of the nose. ISHER Matthew Siegel - 07/17/2018 5:51 PM CST Patient is a 67 [id number] that was admitted on 07/15/2018 with a diagnosis of spleen laceration and rib fractures. Respiratory assessed this patient at 0700, patient was alert and appropriately responding to questions. Patient stated she had no difficulty or pain with breathing. Patient vital signs: Heart Rate: 95 Respiratory Rate: 17 SpO2: 99% on 2L Nasal Cannula Blood Pressure: 131/102 Cough: Non-Productive; Congested; Strong Breath Sounds: Clear; Coarse Crackles in bases Plan of Care: Continue with Chest Physiotherapy TID; Continue monitoring respiratory status in ICU; Encourage working with P.T. And O.T. For bronchial hygiene; Encourage deep breathing and coughing. Electronically signed by: Matthew Siegel 07/17/18 6:28 PM ISHER Rachelle Diamond RIsabel - 07/17/2018 3:25 PM CST Compromised Skin Integrity ??? Incisions, wounds, or drain sites healing without S/S of infection Progressing ??? Skin/Tissue integrity maintained or improved Progressing ??? Oral and Nasal mucous membranes remain intact Progressing DISCHARGE PLANNING ??? Patient discharge needs identified Progressing Incontinence and/or Moisture ??? Skin integrity is maintained or improved Progressing INFECTION - ADULT ??? Absence of infection during hospitalization Progressing KNOWLEDGE DEFICIT ??? Patient/family/caregiver demonstrates understanding of disease process, treatment plan, medications, and discharge instructions Progressing PAIN - ADULT ??? PT VERBALIZES/DEMONSTRATES ADEQUATE COMFORT LEVEL OR BASELINE Progressing POTENTIAL OR ACTUAL PRESSURE INJURY-ADULT ??? Manage sensory Perception deficits to maintain and/or improve skin integrity Progressing ??? Maintain optimal skin moisture to ensure or improve skin integrity Progressing ??? Achieve optimal activity and/or mobility to maintain or improve skin integrity Progressing ??? Nutrient intake appropriate for improving, restoring or maintaining skin integrity Progressing ??? Minimize friction and/or shear to maintain or improve skin integrity Progressing SAFETY ADULT ??? Maintain a safe environment Progressing SAFETY ADULT - RISK FOR FALL AND OR FALL INJURY ??? Patient remains free from fall/fall injury Progressing SKIN/TISSUE INTEGRITY ??? Skin/Tissue integrity maintained or improved Progressing ??? Oral and Nasal mucous membranes remain intact Progressing Goals: Clinical Goals for the Shift: Patient will mobilize and have good pain control Identify possible barriers to meeting goals/advancing plan of care: Patient being too tired to mobilize Stability of the patient: Moderately Stable - Low risk of patient condition declining or worsening End of Shift Summary: Patient is mobilizing and had good pain control. ISHER Yuriy Banks R.R.TYvonne, L.R.T. - 07/17/2018 6:22 AM CST Patient is a 67 y.o. female admitted on 07/15/2018 Alert Information: Plan of Care: continue to monitor and assess patients respiratory status while in ICU. Encourage deep breathing and coughing. Principal Problem Major Laceration Spleen Initial Oxygen Therapy $Delivery Method: Nasal cannula History Smoking Status ??? Former Smoker Smokeless Tobacco ??? Not on file Recent Labs 07/16/18 1149 PO2 ART 158 H PCO2 ART 41 PH ART 7.36 Skin integrity checked: Skin clean and intact with no areas of redness on the face, nose, neck or ears. LiquiCell?? applied to the bridge of the nose. Brock Fontenot R.N. - 07/16/2018 9:35 PM CST Goals: Clinical Goals for the Shift: mob ilize Identify possible barriers to meeting goals/advancing plan of care: no barriers Stability of the patient: Moderately Stable - Low risk of patient condition declining or worsening End of Shift Summary: Pt sat in regular chair,is wearing CPAP and is taking pain medicine. VSS Electronically signed by: Brock Castillo R.N. 07/16/18 9:37 PM ISHER Trent Rosenberg R.R.T., Rocío. - 07/16/2018 6:27 PM CST Pt was extubated today and is doing well. CPAP started for lung expansion TID and at night. Rib fracture protocol started as well. Will continue to follow while in ICU ISHER Jagruti Munroe R.N. - 07/16/2018 2:30 PM CST Goals: Clinical Goals for the Shift: Decrease sedation; Wean ventilation; Possible extubation today; Pt should remain free of infection; Increase mobility as tolerated Identify possible barriers to meeting goals/advancing plan of care: Pain and drowsiness Stability of the patient: Moderately Stable - Low risk of patient condition declining or worsening End of Shift Summary: Patient is off of sedation and has been extubated. No signs of infection. Patient is in moderate amount of pain, so activity was limited. Working on pain control. ISHER Yuriy Banks R.R.T., DomingoRJyoti - 07/16/2018 4:15 AM CST Alert Information: Plan of Care: continue to monitor and assess patients respiratory status while in ICU. Wean from ventilator as tolerated. Continue to manage and provide airway cares as needed. Principal Problem No Principal Problem: There is no principal problem currently on the Problem List. Please update theProblem List and refresh. ETT (Active) Placement Date/Time: 07/15/18 (c) 1851 Mask Ventilation: Not attempted ETT Type: Standard ETT Tube Size: 7 mm Cuffed: Yes Location: Oral ETT-Secured at (cm): 24 cm Arterial Line 07/15/18 Right Radial (Active) Placement Date/Time: 07/15/18 (c) 1916 Hand Hygiene Performed Prior to Insertion: Yes Site Prep: Chlorhexidine (Preferred) Orientation: Right Location: Radial Insertion attempts: 4 Securement Method: Securement dressing Ventilator Info: Ventilator Mode: SIMV FiO2 (%): 40 % PEEP (cmH2O): 10 cm H20 Plateau (Pause) Airway Pressure: 17 cm H2O Compliance (mL/cm H2O): 36.2 mL/cm H2O Recent Labs 07/15/18 2259 PO2 ART 177 H PCO2 ART 34 PH ART 7.40 Skin integrity checked: Skin clean and intact with no areas of redness on the face, lips, tongue, neck or ears. ETT repositioned Q4 hours. ISHER documented in this encounter OR Notes Op Note - Iglesia Watts M.D. - 07/15/2018 6:59 PM CST FULL OP NOTE Procedure(s) (LRB): Splenectomy (N/A) Exploratory Laparotomy (N/A) Surgeon(s) and Role: * Lourdes Brown M.D. - Primary * Iglesia Watts M.D. - Women Specialist * Royal Infante M.D. - Other Bond Trader Anesthesia Type: General Pre-Operative Diagnosis: Post-Operative Diagnosis: Same as pre-operative diagnosis Findings: Lacerated spleen with active bleeding Complications: None Description of Procedure: Patient came into the ED with known active bleeding from spleen and hemoperitoneum. She was hemodynamically unstable with massive transfusion protocol started. She was rushed to OR 106 emergently. IV line was established. Verbal consent was obtained, and patient was placed supine with arms out. We started prepping her abdomen from xyphoid to pubis with Duraprep as anesthesia team was performing rapidsequence intubation with general anesthesia. Patient underwent successful general anesthesia and after a confirmatory pause, midline laparotomy from 2 finger breadth below xyphoid to 2 finger breath below umbilicus was made. Subcutaneous tissue was opened with lateral traction and electrocautery. Fascia opened with electrocautery. Peritoneum entered sharply with scissor. Upon entry, large amount of blood was gushing out. Suction was quickly placed and left upper quadrant packed with multiple lap pads until no active bleed was observed. We then turn our attention to rest of the quadrants. Right upper quadrant was examined with blood suctioned out. No active bleeding observed. No liver injury observed. We then examined right lower quadrant. Cecum was intact. No active bleeding and no bowel injury nor perforation. Left lower quadrant was examined. No active bleeding and sigmoid was intact without bleeding or injury nor perforation. Small bowel was ran from distal to proximal. No injury was identified. Duodenum was examined and was found to be intact without injury. We then metal turner attention back to left upper quadrant. Lap pads was removed one by one. Multiple large blood clots were removed along with lap pads. After all the lap pads were removed, there was still active bleeding but slowed down significantly. The spleen was retracted medially and splenophrenic splenorenal ligament was divided with electrocautery plus finger fracture. Gastrosplenic ligament wasdissected bluntly with each short gastric vessels clamped, divided, and tied separately. The hilum was then dissected. Splenic artery was found to have a small branch. This small branch, main splenic artery, and splenic vein, were all individually dissected out, clamped, divided and tied. The pancreatic tail was observed and no obvious injury was observed. The blood clot of the left upper quadrant was removed. Hemostasis was examined by rolling lap pads lateral to medial 5 times. Bleeding points were stopped with electrocautery or silk stitches. One 19Frround BERNY was placed in the LUQ. Fascial was closed with 0 looped running PDS. Skin closed with monocryl 4-0 running subticular. Sterile dressing applied. Patient remained reasonably stable throughout the procedure and was transferred to SICU intubated. Specimens ID Type Source Tests Collected by Time A : spleen Tissue Spleen SURGICAL PATHOLOGY, [facility] Lourdes Brown M.D. 07/15/20181927 Drains GI Tubes (Adults) Right (Active) Closed/Suction Drain Abdomen Bulb 19 Fr. (Active) Estimated Blood Loss 1L Implants * No implants in log * Fluid: ED 7u pRBC, 5u FFP, 1plt OR 3u CellSaver 3L crystalloid Drain 19Fr BERNY RUQ Iglesia Watts M.D. ISHER Brief Op Note - Iglesia Watts M.D. - 07/15/2018 6:59 PM CST BRIEF OP NOTE Procedure(s) (LRB): Splenectomy (N/A) Exploratory Laparotomy (N/A) Surgeon(s) and Role: * Lourdes Brown M.D. - Primary * Iglesia Watts M.D. - Women Specialist * Royal Infante M.D. - Other Bond Trader Anesthesia Type: General Pre-Operative Diagnosis: Post-Operative Diagnosis: Same as pre-operative diagnosis Findings: Lacerated spleen with active bleeding Complications: None Specimens ID Type Source Tests Collected by Time A : spleen Tissue Spleen SURGICAL PATHOLOGY, [facility] Lourdes Brown M.D. 07/15/2018 192 Drains GI Tubes (Adults) Orogastric (Active) Placement Verification X-ray 07/16/2018 8:00 AM Length Bryant (cm) 67 cm 07/16/2018 8:00 AM GI Tube Function Suction;peoplesoft administrator 07/16/2018 8:00 AM Status Suction 07/16/2018 8:00 AM Site Assessment Clean;Dry;Intact 07/16/2018 8:00 AM Surrounding Skin Dry;Intact 07/16/2018 8:00 AM Dressing Status Clean;Dry;Intact 07/16/2018 8:00 AM Suction Low;Intermittent 07/16/2018 8:00 AM Gastric Output Characteristics Brown 07/16/2018 8:00 AM Output (mL)- Emesis/Enteric 50 mL 07/16/2018 8:00 AM Irrigation or Flush Intake (mL) 100 07/16/2018 8:00 AM Closed/Suction Drain Abdomen Bulb 19 Fr. (Active) Site Description Healing 07/16/2018 8:00 AM Dressing Status Clean;Dry;Intact 07/16/2018 8:00 AM Dressing Type Antimicrobial disk;Transparent 07/16/2018 8:00 AM Drainage Description Sanguinous 07/16/2018 8:00 AM Suction Bulb 07/16/2018 8:00 AM Status To bulb suction 07/16/2018 8:00 AM Dressing Intervention New dressing 07/15/2018 10:45 PM Output (mL)- Drain 10 mL 07/16/2018 8:00 AM Indwelling Urinary Catheter (Active) Site Assessment Clean;Skin intact 07/16/2018 8:00 AM Collection Container Standard drainage bag 07/16/2018 8:00 AM Securement Method Securing device 07/16/2018 8:00 AM Daily Assessment of Need Strict I/O (unable to collect) 07/16/2018 8:00 AM Line Necessity Reviewed With SICU 07/16/2018 8:00 AM Output (mL)- Urine 40 mL 07/16/2018 10:00 AM [REMOVED] GI Tubes (Adults) Right (Removed) Estimated Blood Loss 1000 mL Implants * No implants in log * Iglesia Watts M.D. ISHER documented in this encounter ED Notes Nito Christianson M.D. - 07/15/2018 7:33 PM CST This patient was a level red 14 trauma resuscitation. I functioned as the team primary care physician in the traumaresuscitation. See scribed note for details regarding the primary and secondary surveys. Briefly, this is a 59-year-old female who presented to the [place] [facility] by ambulance after a ground level fall on ice. Evaluation in [place] was notable for multiple rib fractures and splenic laceration. The patient was also hemodynamically unstable. She was then transported by air to the [facility] for further trauma evaluation. EN route, the patient received 2 units of packed red blood cells and was initiated on norepinephrine. Highest heart rate was 102 beats per minute. Lowest systolic blood pressure was 65 mmHg. Upon arrival to the [facility], an additional IV was placed and massive transfusion protocol was initiated. Initial manual blood pressure was 88/66. Given the patient's continued hemodynamic instability, she was taken directly to the o perating room. She will be admitted to the trauma intensive care unit postoperatively. VITAL SIGNS BP (!) 88/66 Temp 36.2 ??C Resp 22 SpO2 92% Final Diagnoses: as of Jul 15 1932 Major Laceration Spleen Initial Nito Christianson M.D. Resident 07/15/181935 ISHER Rashi De Luna Jr., M.D. - 07/15/2018 6:29 PM CST SUBJECTIVE CHIEF COMPLAINT/REASON FOR VISIT Fall HISTORY OF PRESENT ILLNESS 67 year old female with a history of dysthymia presents to the ED via ambulance from [facility] for a fall on ice today. Earlier today, the patient had a fall forwards on the ice, landing with her left arm under her. There was no head injury or loss of consciousness. She is not on blood thinners. The patient had immediate left rib pain and was taken to [facility] for evaluation. There, CT showed three left rib fractures with a splenic laceration and a small pneumothorax. Her breathing was noted to be normal. She became hypotensive with BP 91/47, so blood was given. Total, she was given Norepinephrine, 2 units RBCs, 4L IVFs Dilaudid, and Zofran x2. Hemoglobin was 11.2. The patient was transfer red to the [facility] ED for further evaluation and care. In route, the patient is hypotensive at 77/54. HRwas 102. An 18 gauge IV on left AC was placed prior to arrival. On arrival to the ED, the patient isnauseous. Her last PO intake was at noon. There are no other complaints at this liam. REVIEW OF SYSTEMS Unable to perform ROS: Acuity of condition Gastrointestinal: Positive for nausea. OBJECTIVE Initial Vitals Temp Pulse Heart Rate Resp BP SpO2 -- -- -- -- -- -- Pain Score -- PHYSICAL EXAMINATION Eyes: Pupils 4 mm bilaterally and reactive. Cardiovascular: Weak right radial pulse. Weak bilateral DP pulses. Pulmonary/Chest: Bilateral breath sounds. Breathing on NC. Abdominal: Soft. There is tenderness. Genitourinary: Genitourinary Comments: No blood at the urethral meatus. Musculoskeletal: She exhibits no deformity. Pelvis is stable. No pain in the bilateral lower extremities. Neurological: She is alert. She is not disoriented. GCS 15. Skin: Skin is cool. No lacerations to the face, chest, or upper extremities. ASSESSMENT/PLAN Impression and Plan 67 y.o. year old female presents to the ED as a trauma activation as described above. PREHOSPITAL CARE INFORMATION - Vitals: highest heart rate: 102, lowest blood pressure: 77/54 - Origin: [facility] - Mechanism: Fall on ice - Injuries: 3 left rib fractures with spleen laceration - Treatments: Norepinephrine, 2 units RBCs, 4L IVFs Dilaudid, and Zofran x2. RESUSCITATION - Interventions: IV access established, blood transfusion COURSE 182: Patient arrives in R1 1830: Blood transfusion is hanging. 183: 88/66 manual blood pressure. 183: 36.2 C oral temperature. 1836: 18 gauge IV placed in the left wrist. 1836: Vitals on the monitor: 131/112 BP, 86 % oxygen, 95 HR. 1837: Patient taken to the OR. IMPRESSION/REPORT/PLAN 1. Splenic laceration, traumatic 2. Multiple rib fractures The patient fell from standing earlier today, and sustained multiple rib fractures. A CT was done atthe outside institution, which revealed a splenic laceration and hemorrhage. CTs were reviewed priorto arrival here at [facility]. She was a level red trauma upon arrival, and the trauma team met her at the door. ABC's are intact. Plan is to take her to the operating room for definitive treatment.. Reviewed and summarized previous medical records including: Documentation from previous visits. Final Diagnoses: as of Jul 15 1843 Major Laceration Spleen Initial I have personally seen and examined this patient. I have fully participated in the care of this patient. I have reviewed all clinical information including history, physical exam, orders, and plan. I agree with the note of the resident. I personally performed the services described in this documentation, as scribed in my presence, and it is both accurate and complete. Rashi De Luna Jr., M.D. 07/17/18 1002 ISHER documented in this encounter Miscellaneous Notes Hospital Course - Salty Hernandez APRN, C.N.P., M.S.N. - 07/16/2018 12:45 AM PLANISHER Mechanism of injury: Fall from standing Yarelis Painting is a 67 year-old female who presented to [facility] via ground ambulance afteraccidental slip and fall on ice on 07/15/2018, complaining of left rib pain. Outside emergency department evaluation demonstrated multiple left rib fractures, (3-8 with displacement of 4-6) with splenic laceration and small pneumothorax by CT imaging. She was found to be hypotensive, and received blood transfusion. She reportedly received 2 units red blood cells (pRBC) and norepinephrine infusion prior to arrival at [facility] Emergency Department via EMS transfer. She was found to be hypotensive upon arrival in the resuscitation bay after level red trauma alert. Massive transfusion was initiated, and she was rapidly transferred to the operating room for splenectomy. Intraoperatively, she received fluid resuscitation and additional transfusion of blood products.One surgical drain was placed in the left mid-abdominal region. She remained intubated postoperatively, and was transferred to the [facility] SICU without overt hemodynamic instability. A tertiary survey was performed on 07/16/18 which revealed no new injuries. On 07/18/18, the patient was stable and was transferred to the floor for continued care. Physical therapy was consulted to assist with mobilization. Shuttle Van Driver was also consulted to assist with possible placement/therapy needs. When the patient was tolerating a regular diet, her pain was well controlled on oral medications, her bowel and bladder function were deemed acceptable, and she was they were mobilizing safely with physical therapy with a walker, the patient was dismissed to home with home health cares on 07/22/18. She will require home health care upon dismissal to assist with ongoing therapy needs. Patient qualifies for [facility] due to requiring a new gait aid, assist of another person, and it would be a taxing effort to leave her home. Home therapy interventions may include: Therapeutic exercise, Therapeutic functional activity, Neuromuscular re-education, Self-care/home management, and Gait training. #1 Major Laceration Spleen Initial #2 Splenectomy Total Status Post CT imaging obtained in outside hospital showed a grade 4 splenic laceration with active bleeding caden large amount of blood in the abdominal cavity. Prior to transfer, she was found to be hypotensive and received intravenous fluids and blood products. After initial evaluation in the trauma [place] massive blood transfusion was initiated and the patient was taken to the operating room for exploratory laparotomy, splenectomy, and hemostasis. Postoperatively she was transferred to the surgical intensive care unit (SICU). Laboratory studies were closely monitored in the postoperative setting without signsof ongoing bleeding. The patient had a surgically placed BERNY drain which was removed on 07/21/18 when the drain outputs were acceptable. Splenic vaccinations were administered on 07/22/18. SPLENIC VACCINATIONS: You received the following vaccinations while hospitalized: (MVC4/Menactra) Meningoc vac a,c,y,w-135 diptheria, on 07/22/18 (Men B/Bexsero) Meningococcal vac b, on 07/22/18 (Hib) haemophilus B conjugate, on 07/22/18 YOU WILL NEED TO HAVE A REPEAT MENINGOCOCCAL VACCINATION (Menactra and Bexsero) in 8 weeks, AND THEN A (Menactra Booster) EVERY 5 YEARS TIME DUE TO YOUR SPLENECTOMY. You will need to schedule these with your primary care provider Patient had previously received a pneumococcal vaccination (PPSV23) on 10/14/2014. YOU WILL NEED TO HAVE A REPEAT PNEUMOCOCCAL VACCINATION (PPSV23) EVERY 5 YEARS DUE TO YOUR SPLENECTOMY. Please schedule this vaccination with your primary care provider You need an annual influenza vaccination The patient will have an abdominal wound recheck at her two week rib fracture follow up with the Trauma Service. #3 Fracture Rib Multiple Closed Initial Left #4 Pneumothorax Trauma Initial Imaging studies noted fractures left 3rd through 8th ribs with a flail segment the 4th through 8th ribs. The patient was intubated prior to transfer and remained intubated operative intervention and transferred to SICU. On July 13 the patient was successfully extubated. Respiratory status was monitored closely in 3D imaging was obtained for possible chest wall stabilization. Respiratory therapy was consulted to perform pulmonary testing. Initial imaging had a left apical pneumothorax, this was closely monitored and on 07/18 a chest tube was placed for decompression. The patient was instructed on aggressive pulmonary hygiene with deep breathing, coughing, and incentive spirometry. Pain was controlled to allow for this. Daily chest x-rays were monitored to assess respiratory status. As the patient progressed non operative management was elected. With resolution pneumothorax chest tube was transferred to [facility] and when drainage had decreased subsequently removed on 07/20/18. The patient will follow up in trauma outpatient clinic in approximately 2 weeks for further evaluation and chest x-ray. The patient has two sutures in place in the left chest tube insertion site that will need to be removed on or around 07/30/18. Suture removal can be performed by a visiting nurse from her [facility]. #5 Hypovolemic Shock (HCC) #6 Anemia Posthemorrhagic Acute (Blood Loss Anemia) Patient received blood transfusion at outside facility and was started on medication to assist with increasing blood pressures during transportation. Upon arrival at [facility] massive bloodtransfusion protocol was initiated and the patient was taken to the operating room where she underwent splenectomy and bleeding was stopped. Postoperatively, her blood pressure and hemoglobin remained stable. Hemoglobin on dismissal was 14.6 #7 Acute Respiratory Failure With Hypoxia (HCC) The patient was intubated at an outside facility and remained intubated through a initial operative course. On 07/16 she was extubated by the surgical intensive care unit without complication. Respiratory status was continuously monitored. Serial chest x-rays were followed with improvement. #8 Hypophosphatemia Electrolytes were monitored and repleted as necessary while hospitalized. ISHER documented in this encounter Plan of Treatment Pending Results Name Type Priority Associated Diagnoses Date/Ti me Prepare Fresh Frozen Blood Bank STAT 019 7:15 PM PLANISHER Plasma Prepare Red Blood Blood Bank STAT 07/15/2018 7:15 PM PLANISHER Cells Prepare Red Blood Blood Bank STAT 07/15/2018 7:15 PM PLANISHER Cells Prepare Red Blood Blood Bank STAT 07/15/2018 7:15 PM PLANISHER Cells Prepare Platelets Blood Bank STAT 07/15/2018 7:15 PM PLANISHER Prepare Fresh Frozen Blood Bank STAT 019 7:15 PM PLANISHER Plasma Scheduled Referrals Name Type Priority Associated Diagnoses Order [facility] Trauma Critical Outpatient Referral Routine Expec anastasiya: Care and General 08/04/2018 Surgery office (Approximate) , visit (clinic) Expires: 07/21/2021 [facility] Outpatient Referral Routine Decline Functional O rdered: Health Referral Status 07/24/2018 Debility Pneumothorax Trauma Initial documented as of this encounter Procedures Procedure Name Priority Date/Time Associated Comments Diagnosis DX CHEST PORTABLE 1 RAD - Routine 07/22/2018 8:28 Resu lts for VIEW (most inpatients AM PLANISHER this proced ure and all are in the outpatients) results section. CBC WITHOUT Routine 07/22/2018 8:20 Results for DIFFERENTIAL, B AM PLANISHER this procedu re are in the results section. PHOSPHORUS Routine 07/22/2018 8:20 Results for (INORGANIC), S AM PLANISHER this procedur e are in the results section. BASIC METABOLIC Routine 07/22/2018 8:20 Results f or PANEL, S/P AM PLANISHER this procedure are in the results section. ADULT OXYGEN THERAPY Routine 07/21/2018 8:00 AM PLANISHER NON-INVASIVE Routine 07/21/2018 8:00 VENTILATION AM PLANISHER PULSE OXIMETRY, Routine 07/21/2018 8:00 CONTINUOUS AM PLANISHER CHEST PHYSIOTHERAPY Routine 07/21/2018 7:00 AM PLANISHER DX CHEST PORTABLE 1 RAD - Routine 07/21/2018 6:03 Resu lts for VIEW (most inpatients AM PLANISHER this proced ure and all are in the outpatients) results section. NON-INVASIVE Routine 07/20/2018 8:01 VENTILATION PM PLANISHER CHEST PHYSIOTHERAPY Routine 07/20/2018 7:00 PM PLANISHER CHEST PHYSIOTHERAPY Routine 07/20/2018 1:00 PM PLANISHER ADULT OXYGEN THERAPY Routine 07/20/2018 8:01 AM PLANISHER NON-INVASIVE Routine 07/20/2018 8:01 VENTILATION AM PLANISHER PULSE OXIMETRY, Routine 07/20/2018 8:01 CONTINUOUS AM PLANISHER CHEST PHYSIOTHERAPY Routine 07/20/2018 7:00 AM PLANISHER DX CHEST PORTABLE 1 RAD - Routine 07/20/2018 6:22 Resu lts for VIEW (most inpatients AM PLANISHER this proced ure and all are in the outpatients) results section. ADULT OXYGEN THERAPY Routine 07/19/2018 8:01 PM PLANISHER NON-INVASIVE Routine 07/19/2018 8:01 VENTILATION PM PLANISHER CHEST PHYSIOTHERAPY Routine 07/19/2018 7:01 PM PLANISHER CHEST PHYSIOTHERAPY Routine 07/19/2018 1:00 PM PLANISHER ADULT OXYGEN THERAPY Routine 07/19/2018 8:01 AM PLANISHER NON-INVASIVE Routine 07/19/2018 8:01 VENTILATION AM PLANISHER PULSE OXIMETRY, Routine 07/19/2018 8:01 CONTINUOUS AM PLANISHER NON-INVASIVE Routine 07/19/2018 7:15 VENTILATION AM PLANISHER NON-INVASIVE Routine 07/19/2018 7:15 VENTILATION AM PLANISHER CHEST PHYSIOTHERAPY Routine 07/19/2018 7:00 AM PLANISHER DX CHEST PORTABLE 1 RAD - Routine 07/19/2018 5:14 Resu lts for VIEW (most inpatients AM PLANISHER this proced ure and all are in the outpatients) results section. CBC WITHOUT Routine 07/18/2018 9:35 Results for DIFFERENTIAL, B PM PLANISHER this procedu re are in the results section. PHOSPHORUS Routine 07/18/2018 9:34 Results for (INORGANIC), S PM PLANISHER this procedur e are in the results section. MAGNESIUM, S Routine 07/18/2018 9:34 Results for PM PLANISHER this procedure are in the results section. BASIC METABOLIC Routine 07/18/2018 9:34 Results f or PANEL, S/P PM PLANISHER this procedure are in the results section. ADULT OXYGEN THERAPY Routine 07/18/2018 8:01 PM PLANISHER PULSE OXIMETRY, Routine 07/18/2018 8:01 CONTINUOUS PM PLANISHER CHEST PHYSIOTHERAPY Routine 07/18/2018 7:00 PM PLANISHER DX CHEST PORTABLE 1 RAD - Emergent 07/18/2018 3:46 Res ults for VIEW (Fastest; for the PM PLANISHER this proce dure most critically are in the ill patients) results section. PHOSPHORUS STAT 07/18/2018 3:45 Results for (INORGANIC), S PM PLANISHER this procedur e are in the results section. BASIC METABOLIC STAT 07/18/2018 3:45 Results f or PANEL, S/P PM PLANISHER this procedure are in the results section. OK PLEURA DRAIN PERC Routine 07/18/2018 2:35 Effusion Pleural Results for WO IMG GUID PM PLANISHER this procedure are in the results section. PHOSPHORUS Timed 07/18/2018 2:02 Results for (INORGANIC), S PM PLANISHER this procedur e are in the results section. MAGNESIUM, S Timed 07/18/2018 2:02 Results for PM PLANISHER this procedure are in the results section. BASIC METABOLIC Timed 07/18/2018 2:02 Results f or PANEL, S/P PM PLANISHER this procedure are in the results section. CHEST PHYSIOTHERAPY Routine 07/18/2018 1:[address] RETROSPECTIVE 3D Routine 07/18/2018 11:33 Resu lts for POST PROCESSING AM PLANISHER this procedu re are in the results section. CT CHEST WITH IV RAD - Routine 07/18/2018 11:14 Result s for CONTRAST (most inpatients AM PLANISHER this proced ure and all are in the outpatients) results section. ADULT OXYGEN THERAPY Routine 07/18/2018 8:00 AM PLANISHER PULSE OXIMETRY, Routine 07/18/2018 8:00 CONTINUOUS AM PLANISHER CHEST PHYSIOTHERAPY Routine 07/18/2018 7:01 AM PLANISHER CBC WITHOUT Routine 07/18/2018 6:29 Results for DIFFERENTIAL, B AM PLANISHER this procedu re are in the results section. PHOSPHORUS Routine 07/18/2018 6:29 Results for (INORGANIC), S AM PLANISHER this procedur e are in the results section. BASIC METABOLIC Routine 07/18/2018 6:29 Results f or PANEL, S/P AM PLANISHER this procedure are in the results section. DX CHEST PORTABLE 1 RAD - Routine 07/18/2018 5:22 Resu lts for VIEW (most inpatients AM PLANISHER this proced ure and all are in the outpatients) results section. CHEST PHYSIOTHERAPY Routine 07/17/2018 7:01 PM PLANISHER CHEST PHYSIOTHERAPY Routine 07/17/2018 1:00 PM PLANISHER ADULT OXYGEN THERAPY Routine 07/17/2018 8:01 AM PLANISHER PULSE OXIMETRY, Routine 07/17/2018 8:01 CONTINUOUS AM PLANISHER CHEST PHYSIOTHERAPY Routine 07/17/2018 7:00 AM PLANISHER DX CHEST PORTABLE 1 RAD - Routine 07/17/2018 5:21 Resu lts for VIEW (most inpatients AM PLANISHER this proced ure and all are in the outpatients) results section. GLUCOSE POCT, B Timed 07/17/2018 4:24 Results f or AM PLANISHER this procedure are in the results section. CBC WITHOUT Timed 07/17/2018 4:24 Results for DIFFERENTIAL, B AM PLANISHER this procedu re are in the results section. MAGNESIUM, S Timed 07/17/2018 4:24 Results for AM PLANISHER this procedure are in the results section. BASIC METABOLIC Timed 07/17/2018 4:24 Results f or PANEL, S/P AM PLANISHER this procedure are in the results section. GLUCOSE POCT, B Routine 07/17/2018 4:15 Results f or AM PLANISHER this procedure are in the results section. GLUCOSE POCT, B Routine 07/17/2018 12:08 Results for AM PLANISHER this procedure are in the results section. GLUCOSE POCT, B Timed 07/17/2018 12:08 Results for AM PLANISHER this procedure are in the results section. GLUCOSE POCT, B Routine 07/16/2018 8:10 Results f or PM PLANISHER this procedure are in the results section. GLUCOSE POCT, B Timed 07/16/2018 8:10 Results f or PM PLANISHER this procedure are in the results section. ADULT OXYGEN THERAPY Routine 07/16/2018 8:00 PM PLANISHER PULSE OXIMETRY, Routine 07/16/2018 8:00 CONTINUOUS PM PLANISHER CHEST PHYSIOTHERAPY Routine 07/16/2018 7:00 PM PLANISHER GLUCOSE POCT, B Routine 07/16/2018 4:12 Results f or PM PLANISHER this procedure are in the results section. GLUCOSE POCT, B Timed 07/16/2018 4:12 Results f or PM PLANISHER this procedure are in the results section. CHEST PHYSIOTHERAPY Routine 07/16/2018 1:00 PM PLANISHER CHEST PHYSIOTHERAPY Routine 07/16/2018 12:51 PM PLANISHER CHEST PHYSIOTHERAPY Routine 07/16/2018 12:51 PM PLANISHER CHEST PHYSIOTHERAPY Routine 07/16/2018 12:51 PM PLANISHER CHEST PHYSIOTHERAPY Routine 07/16/2018 12:51 PM PLANISHER EXTUBATION Routine 07/16/2018 12:34 PM PLANISHER PATIENT STATUS Timed 07/16/2018 11:49 Results f or AM PLANISHER this procedure are in the results section. ABG W/COOX Timed 07/16/2018 11:49 Results for AM PLANISHER this procedure are in the results section. GLUCOSE POCT, B Timed 07/16/2018 11:48 Results for AM PLANISHER this procedure are in the results section. CBC WITHOUT Routine 07/16/2018 11:48 Results for DIFFERENTIAL, B AM PLANISHER this procedu re are in the results section. GLUCOSE POCT, B Routine 07/16/2018 11:47 Results for AM PLANISHER this procedure are in the results section. GLUCOSE POCT, B Routine 07/16/2018 8:12 Results f or AM PLANISHER this procedure are in the results section. GLUCOSE POCT, B Timed 07/16/2018 8:12 Results f or AM PLANISHER this procedure are in the results section. CT LUMBAR SPINE RAD - Semiurgent 07/16/2018 8:04 Resul ts for WITHOUT IV CONTRAST (Fast; most ED AM PLANISHER this p rocedure patients; some are in the inpatients) results section. CT THORACIC SPINE RAD - Semiurgent 07/16/2018 8:04 Res ults for WITHOUT IV CONTRAST (Fast; most ED AM PLANISHER this p rocedure patients; some are in the inpatients) results section. CT CERVICAL SPINE RAD - Semiurgent 07/16/2018 8:04 Res ults for WITHOUT IV CONTRAST (Fast; most ED AM PLANISHER this p rocedure patients; some are in the inpatients) results section. CT HEAD WITHOUT IV RAD - Semiurgent 07/16/2018 8:04 Re sults for CONTRAST (Fast; most ED AM PLANISHER this procedur e patients; some are in the inpatients) results section. ADULT OXYGEN THERAPY Routine 07/16/2018 8:01 AM PLANISHER PULSE OXIMETRY, Routine 07/16/2018 8:01 CONTINUOUS AM PLANISHER DX SHOULDER LEFT 2+ RAD - Routine 07/16/2018 6:53 Resu lts for VIEWS (most inpatients AM PLANISHER this proced ure and all are in the outpatients) results section. PATIENT STATUS Timed 07/16/2018 6:04 Results fo r AM PLANISHER this procedure are in the results section. ABG W/COOX Timed 07/16/2018 6:04 Results for AM PLANISHER this procedure are in the results section. CBC WITHOUT Timed 07/16/2018 6:03 Results for DIFFERENTIAL, B AM PLANISHER this procedu re are in the results section. PHOSPHORUS Timed 07/16/2018 6:03 Results for (INORGANIC), S AM PLANISHER this procedur e are in the results section. MAGNESIUM, S Timed 07/16/2018 6:03 Results for AM PLANISHER this procedure are in the results section. CALCIUM, IONIZED, S/B Timed 07/16/2018 6:03 Res ults for AM PLANISHER this procedure are in the results section. BASIC METABOLIC Timed 07/16/2018 6:03 Results f or PANEL, S/P AM PLANISHER this procedure are in the results section. DX CHEST PORTABLE 1 RAD - Semiurgent 07/16/2018 5:22 R esults for VIEW (Fast; most ED AM PLANISHER this procedur e patients; some are in the inpatients) results section. GLUCOSE POCT, B Routine 07/16/2018 4:26 Results f or AM PLANISHER this procedure are in the results section. GLUCOSE POCT, B Timed 07/16/2018 4:26 Results f or AM PLANISHER this procedure are in the results section. GLUCOSE POCT, B Routine 07/16/2018 12:57 Results for AM PLANISHER this procedure are in the results section. GLUCOSE POCT, B Timed 07/16/2018 12:57 Results for AM PLANISHER this procedure are in the results section. DX ABDOMEN PORTABLE RAD - Routine 07/16/2018 12:26 Res ults for ANTERIOR POSTERIOR 1 (most inpatients AM PLANISHER thi s procedure VIEW and all are in the outpatients) results section. CBC WITHOUT Timed 07/16/2018 12:13 Results for DIFFERENTIAL, B AM PLANISHER this procedu re are in the results section. ABG AND LYTES CG8+, Routine 07/15/2018 11:00 Resu lts for POCT, B PM PLANISHER this procedure are in the results section. PATIENT STATUS STAT 07/15/2018 10:59 Results f or PM PLANISHER this procedure are in the results section. BLOOD GAS, POCT, B STAT 07/15/2018 10:59 Resul ts for PM PLANISHER this procedure are in the results section. ABG W/O COOX STAT 07/15/2018 10:59 Results for PM PLANISHER this procedure are in the results section. CBC WITHOUT STAT 07/15/2018 10:58 Results for DIFFERENTIAL, B PM PLANISHER this procedu re are in the results section. BASIC METABOLIC STAT 07/15/2018 10:58 Results for PANEL, S/P PM PLANISHER this procedure are in the results section. THROMBOELASTOGRAPH, STAT 07/15/2018 10:56 Resu lts for KAOLIN, B PM PLANISHER this procedure are in the results section. MECHANICAL Routine 07/15/2018 10:26 VENTILATION PM PLANISHER SUPPLEMENTAL ORDER SET TRIGGER ADULT OXYGEN THERAPY Routine 07/15/2018 10:22 PM PLANISHER ADULT OXYGEN THERAPY Routine 07/15/2018 10:22 PM PLANISHER AIRWAY CARE Routine 07/15/2018 10:22 PM PLANISHER PULSE OXIMETRY, Routine 07/15/2018 10:22 CONTINUOUS PM PLANISHER PULSE OXIMETRY, Routine 07/15/2018 10:22 CONTINUOUS PM PLANISHER MECHANICAL VENTILATOR Routine 07/15/2018 10:22 PM PLANISHER MECHANICAL VENTILATOR Routine 07/15/2018 10:22 PM PLANISHER MECHANICAL VENTILATOR Routine 07/15/2018 10:22 PM PLANISHER MECHANICAL VENTILATOR Routine 07/15/2018 10:22 PM PLANISHER MECHANICAL VENTILATOR Routine 07/15/2018 10:22 PM PLANISHER INTUBATION Routine 07/15/2018 10:22 PM PLANISHER DX ABDOMEN 1 VIEW RAD - Routine 07/15/2018 9:58 Result s for (most inpatients PM PLANISHER this proced ure and all are in the outpatients) results section. DX CHEST PORTABLE 1 RAD - Routine 07/15/2018 9:57 Resu lts for VIEW (most inpatients PM PLANISHER this proced ure and all are in the outpatients) results section. PATIENT STATUS STAT 07/15/2018 8:52 Results fo r PM PLANISHER this procedure are in the results section. SODIUM, B STAT 07/15/2018 8:52 Results for PM PLANISHER this procedure are in the results section. ABG W/COOX STAT 07/15/2018 8:52 Results for PM PLANISHER this procedure are in the results section. POTASSIUM, B STAT 07/15/2018 8:52 Results for PM PLANISHER this procedure are in the results section. GLUCOSE, WHOLE BLOOD STAT 07/15/2018 8:52 Resu lts for PM PLANISHER this procedure are in the results section. CALCIUM, IONIZED, S/B STAT 07/15/2018 8:52 Res ults for PM PLANISHER this procedure are in the results section. CRITICAL CARE Routine 07/15/2018 8:39 Results for PM PLANISHER this procedure are in the results section. PLATELETS, B STAT 07/15/2018 8:07 Results for PM PLANISHER this procedure are in the results section. LACTATE, B STAT 07/15/2018 8:02 Results for PM PLANISHER this procedure are in the results section. PATIENT STATUS STAT 07/15/2018 8:02 Results fo r PM PLANISHER this procedure are in the results section. SODIUM, B STAT 07/15/2018 8:02 Results for PM PLANISHER this procedure are in the results section. ABG W/COOX STAT 07/15/2018 8:02 Results for PM PLANISHER this procedure are in the results section. POTASSIUM, B STAT 07/15/2018 8:02 Results for PM PLANISHER this procedure are in the results section. GLUCOSE, WHOLE BLOOD STAT 07/15/2018 8:02 Resu lts for PM PLANISHER this procedure are in the results section. CALCIUM, IONIZED, S/B STAT 07/15/2018 8:02 Res ults for PM PLANISHER this procedure are in the results section. AUTOLOGOUS RED BLOOD Routine 07/15/2018 7:53 CELLS-CELL SALVAGE PM PLANISHER AUTOLOGOUS RED BLOOD Routine 07/15/2018 7:31 CELLS-CELL SALVAGE PM PLANISHER SURGICAL PATHOLOGY, Routine 07/15/2018 7:28 Resul ts for FROZEN LAB PM PLANISHER this procedure are in the results section. LACTATE, B STAT 07/15/2018 7:24 Results for PM PLANISHER this procedure are in the results section. PATIENT STATUS STAT 07/15/2018 7:24 Results fo r PM PLANISHER this procedure are in the results section. SODIUM, B STAT 07/15/2018 7:24 Results for PM PLANISHER this procedure are in the results section. ABG W/COOX STAT 07/15/2018 7:24 Results for PM PLANISHER this procedure are in the results section. POTASSIUM, B STAT 07/15/2018 7:24 Results for PM PLANISHER this procedure are in the results section. GLUCOSE, WHOLE BLOOD STAT 07/15/2018 7:24 Resu lts for PM PLANISHER this procedure are in the results section. CALCIUM, IONIZED, S/B STAT 07/15/2018 7:24 Res ults for PM PLANISHER this procedure are in the results section. AUTOLOGOUS RED BLOOD Routine 07/15/2018 7:23 CELLS-CELL SALVAGE PM PLANISHER ACTIVATED PARTIAL STAT 07/15/2018 7:23 Results for THROMBOPLASTIN TIME PM PLANISHER this pro cedure (APTT), P are in the results section. PROTHROMBIN TIME STAT 07/15/2018 7:23 Results for (PT), P PM PLANISHER this procedure are in the results section. FIBRINOGEN, P STAT 07/15/2018 7:23 Results for PM PLANISHER this procedure are in the results section. PLATELETS, B STAT 07/15/2018 7:23 Results for PM PLANISHER this procedure are in the results section. TRANSFUSE EMERGENCY Routine 07/15/2018 7:22 RELEASED PLATELETS PM PLANISHER PREPARE PLATELETS STAT 07/15/2018 7:15 PM PLANISHER PREPARE FRESH FROZEN STAT 07/15/2018 7:15 PLASMA PM PLANISHER PREPARE FRESH FROZEN STAT 07/15/2018 7:15 PLASMA PM PLANISHER PREPARE RED BLOOD STAT 07/15/2018 7:15 CELLS PM PLANISHER PREPARE RED BLOOD STAT 07/15/2018 7:15 CELLS PM PLANISHER PREPARE RED BLOOD STAT 07/15/2018 7:15 CELLS PM PLANISHER TYPE AND SCREEN STAT 07/15/2018 7:15 Results f or PM PLANISHER this procedure are in the results section. EXPLORATORY 07/15/2018 6:22 LAPAROTOMY PM PLANISHER SPLENECTOMY 07/15/2018 6:22 PM PLANISHER documented in this encounter Results DX Chest AP or PA and Lateral 2 Views (08/06/2018 10:09 AM PLANISHER) Anatomical Region Laterality Modality Chest, Thoracic RST LOS, Thoracic ARZ LOS, Thoracic N/A Digital Radiography FLA LOS Specimen (Source) Anatomical Collection Method Collection Time Re ceived Time Location / / Volume Laterality 08/06/2018 10:16 AM PLANISHER Impressions 08/06/2018 10:18 AM PLANISHER IMPRESSION: Small left effusion has increased compared to prior. Multiple left-sided rib fractures. No pneumothora x. Heart size and pulmonary vasculature are normal. Narrative 08/06/2018 10:18 AM PLANISHER EXAM: ??DX CHEST AP OR PA AND LATERAL 2 VIEWS Procedure Note Keny Claros M.D. - 08/06/2018Formatt ing of this note might be different from the original. EXAM: DX CHEST AP OR PA AND LATERAL 2 EWS IMPRESSION: Small left effusion has incr eased compared to prior. Multiple left-sided rib fractures. No pneumothora x. Heart size and pulmonary vasculature are normal. Salty Hernandez APRN, C.N.P., M.S.N. IMG DIAGNOSTIC IMAG ING PROCEDURES DX Chest Portable 1 View (07/22/2018 8:28 AM PLANISHER) Anatomical Region Laterality Modality Chest, Thoracic RST LOS, Thoracic ARZ LOS, Thoracic N/A Digital Radiography FLA LOS Specimen (Source) Anatomical Collection Method Collection Time Re ceived Time Location / / Volume Laterality 07/22/2018 8:33 AM PLANISHER Impressions 07/22/2018 8:34 AM PLANISHER IMPRESSION: ??Since 07/21/2018, no significant change. Small left pleural effusion with basilar atelectasis. Multiple left rib fractures. No pneumothorax The right lung is clear. Narrative 07/22/2018 8:34 AM PLANISHER EXAM: ??DX CHEST PORTABLE 1 VIEW Procedure Note Rachelle Armenta M.D. - 07/22/2018Fo rmatting of this note might be different from the original. EXAM: DX CHEST PORTABLE 1 VIEW IMPRESSION: Since 07/21/2018, no signific ant change. Small left pleural effusion with basilar atelectasis. Multiple left rib fractures. No pneumothorax The right lung is clear. Salty Hernandez APRN, C.N.P., M.S.N. [facility] DIAGNOSTIC IMAG ING PROCEDURES Phosphorus Inorganic (07/22/2018 8:20 AM PLANISHER) Analysis Performed At [facility] logist Time Signature Phosphorus 3.0 2.5 - 4.5 07/22/2018 [facility] (Inorganic), S mg/dL 9:39 AM PLANISHER [facility] Specimen Anatomical Collection Method Collection Time Receive d Time (Source) Location / / Volume Laterality Blood (Blood, 07/22/2018 8:20 AM 07/22/19 19 8:43 Venous) PLANISHER AM PLANISHER Salty Hernandez APRN, C.N.P., M.S.N. LAB BLOOD ADD-ON Performing Organization Address City/State/ZIP Code Phon e Number [facility]ATORIES - [address] [place], [place] [address] [facility] (ABNORMAL) CBC without Differential (07/22/2018 8:20 AM PLANISHER) Patholo gist Method Time Signature Hemoglobin 14.6 11.6 - 07/22/2018 [facility] 15.0 g/dL 8:59 AM PLANISHER LABORATORIES [facility] Hematocrit 45.9 (H) 35.5 - 07/22/2018 [facility] 44.9 % 8:59 AM PLANISHER LABORATORIES - [facility] Erythrocytes 5.01 3.92 - 07/22/2018 [facility] 5.13 8:59 AM PLANISHER LABORATORIES - x10(12)/L [facility] MCV 91.6 78.2 - 07/22/2018 [facility] 97.9 fL 8:59 AM PLANISHER LABORATORIES [facility] RBC Distrib 15.2 12.2 - 07/22/2018 [facility] Width 16.1 % 8:59 AM PLANISHER LABORATORIES - [facility] Platelet Count 415 (H) 157 - 371 07/22/2018 [facility] x10(9)/L 8:59 AM PLANISHER LABORATORIES - [facility] Leukocytes 7.7 3.4 - 9.6 07/22/2018 [facility] x10(9)/L 8:59 AM PLANISHER LABORATORIES [facility] Specimen Anatomical Collection Method Collection Time Receive d Time (Source) Location / / Volume Laterality Blood (Blood, 07/22/2018 8:20 AM 07/22/19 19 8:43 Venous) PLANISHER AM PLANISHER Salty Hernandez APRN, C.N.P., M.S.N. LAB BLOOD ADD-ON Performing Organization Address City/State/ZIP Code Phon e Number [facility]IES - [address] (ABNORMAL) BMP (Basic Metabolic Panel) (07/22/2018 8:20 AM PLANISHER) [facility] gist Method Time Signature Potassium, S 4.7 3.6 - 5.2 07/22/2018 [facility] mmol/L 9:39 AM PLANISHER LABORATORIES [facility] Sodium, S 142 135 - 145 07/22/2018 [facility] mmol/L 9:39 AM PLANISHER LABORATORIES - [facility] Chloride, S 102 98 - 107 07/22/2018 [facility] mmol/L 9:39 AM PLANISHER LABORATORIES - [facility] Bicarbonate, S 27 22 - 29 07/22/2018 [facility] mmol/L 9:39 AM PLANISHER LABORATORIES [facility] Anion Gap 13 7 - 15 07/22/2018 [facility] 9:39 AM PLANISHER LABORATORIES [facility] BUN (Blood 12 6 - 21 07/22/2018 [facility] Urea mg/dL 9:39 AM PLANISHER LABORATORIES - Nitrogen), S [facility] Creatinine, S 0.54 (L) 0.59 - 07/22/2018 [facility] 1.04 9:39 AM PLANISHER LABORATORIES - mg/dL [facility] eGFR-Non >90 >=60 07/22/2018 [facility] Black/ mL/min/BS 9:39 AM PLANISHER LABORATORIES - [place] A [facility] Comment: ----ADDITIONAL INFORMATION---- Estimated GFR calculated using the 2009 CKD_EPI creatinine equation. eGFR-Black/ >90 >=60 mL/min/BSA 07/22/2018 9:39 [facility] Vietnamese AM PLANISHER LABORATORIES - [facility] Comment: ----ADDITIONAL INFORMATION---- Estimated GFR calculated using the 2009 CKD_EPI creatinine equation. Calcium, Total, S 9.2 8.8 - 10.2 mg/dL 07/22/2018 9:39 AM [facility] PLANISHER LABORATORIES - [facility] S Glucose, S 126 70 - 140 mg/dL 07/22/2018 9:39 AM [facility] PLANISHER LABORATORIES - [facility] S Specimen Anatomical Collection Method Collection Time Receive d Time (Source) Location / / Volume Laterality Blood (Blood, 07/22/2018 8:20 AM 07/22/19 19 8:43 Venous) PLANISHER AM PLANISHER Salty Hernandez APRN, C.N.P., M.S.N. LAB BLOOD ADD-ON Performing Organization Address City/State/ZIP Code Phon e Number [facility] - [address] [phone] [facility] DX Chest Portable 1 View (07/21/2018 6:03 AM PLANISHER) Anatomical Region Laterality Modality Chest, Thoracic RST LOS, Thoracic ARZ LOS, Thoracic N/A Digital Radiography FLA LOS Specimen (Source) Anatomical Collection Method Collection Time Re ceived Time Location / / Volume Laterality 07/21/2018 6:06 AM PLANISHER Impressions 07/21/2018 7:59 AM PLANISHER IMPRESSION: ??Since 07/20/2018, removal of the left chest tube. Otherwise, no significant change. Tiny residual left a pical pneumothorax. Small left pleural effusion. Left basilar atelectasis or co nsolidation. Multiple left rib fractures. Bilateral cervical ribs. I have personally reviewed the images an d agree with this interpretation. Narrative 07/21/2018 7:59 AM PLANISHER EXAM: ??DX CHEST PORTABLE 1 VIEW Procedure Note Hayden Irving M.D. - 07/21/2018Fo rmatting of this note might be different from the original. EXAM: DX CHEST PORTABLE 1 VIEW IMPRESSION: Since 07/20/2018, removal of t he left chest tube. Otherwise, no significant change. Tiny residual left a pical pneumothorax. Small left pleural effusion. Left basilar atelectasis or co nsolidation. Multiple left rib fractures. Bilateral cervical ribs. I have personally reviewed the images an d agree with this interpretation. Nadir Talamantes APRNNManinder., M.S.N. IMG DIAGNOSTIC IMAG ING PROCEDURES DX Chest Portable 1 View (07/20/2018 6:22 AM PLANISHER) Anatomical Region Laterality Modality Chest, Thoracic RST LOS, Thoracic ARZ LOS, Thoracic N/A Digital Radiography FLA LOS Specimen (Source) Anatomical Collection Method Collection Time Re ceived Time Location / / Volume Laterality 07/20/2018 6:23 AM PLANISHER Impressions 07/20/2018 8:45 AM PLANISHER IMPRESSION: ??Since 07/19/2018, further decrease in size of the tiny left apical pneumothorax. Otherwise, no significant change. Left chest tube. Small left pleural effusion. Left basilar atelectas is or consolidation. Multiple left rib fractures. Bilateral cervical ribs. I have personally reviewed the images an d agree with this interpretation. Narrative 07/20/2018 8:45 AM PLANISHER EXAM: ??DX CHEST PORTABLE 1 VIEW Procedure Note Hayden Irving M.D. - 07/20/2018Fo rmatting of this note might be different from the original. EXAM: DX CHEST PORTABLE 1 VIEW IMPRESSION: Since 07/19/2018, further decr ease in size of the tiny left apical pneumothorax. Otherwise, no significant change. Left chest tube. Small left pleural effusion. Left basilar atelectas is or consolidation. Multiple left rib fractures. Bilateral cervical ribs. I have personally reviewed the images an d agree with this interpretation. Dee Phelan M.D. IMG DIAGNOSTIC IMAGING PROCE DURES DX Chest Portable 1 View (07/19/2018 5:14 AM PLANISHER) Anatomical Region Laterality Modality Chest, Thoracic RST LOS, Thoracic ARZ LOS, Thoracic N/A Digital Radiography FLA LOS Specimen (Source) Anatomical Collection Method Collection Time Re ceived Time Location / / Volume Laterality 07/19/2018 5:17 AM PLANISHER Impressions 07/19/2018 5:19 AM PLANISHER IMPRESSION: ??Since yesterday, the small left apical pneumothorax has decreased. Otherwise no change. Left chest tube. Sm all left pleural effusion. Atelectasis/infiltrate left lower lung. Multiple left rib fractures. Narrative 07/19/2018 5:19 AM PLANISHER EXAM: ??DX CHEST PORTABLE 1 VIEW Procedure Note Christin Jonas M.D. - 07/19/2018Form atting of this note might be different from the original. EXAM: DX CHEST PORTABLE 1 VIEW IMPRESSION: Since yesterday, the small l eft apical pneumothorax has decreased. Otherwise no change. Left chest tube. Sm all left pleural effusion. Atelectasis/infiltrate left lower lung. Multiple left rib fractures. Sheela Peolpes APRN, R.N. IMG DIAGNOSTIC IMAGING [place] OCEDURES CBC without Differential (07/18/2018 9:35 PM PLANISHER) [facility] gist Method Time Signature Hemoglobin 14.0 11.6 - 07/18/2018 [facility] 15.0 g/dL 10:11 PM PLANISHER [facility] Hematocrit 42.3 35.5 - 07/18/2018 [facility] 44.9 % 10:11 PM PLANISHER LABORATORIES [facility] Erythrocytes 4.70 3.92 - 07/18/2018 [facility] 5.13 10:11 PM PLANISHER LABORATORIES - x10(12)/L [facility] MCV 90.0 78.2 - 07/18/2018 [facility] 97.9 fL 10:11 PM PLANISHER [facility] RBC Distrib Width 15.9 12.2 - 07/18/2018 [facility] 16.1 % 10:11 PM [facility] Platelet Count 176 157 - 371 07/18/2018 [facility] x10(9)/L 10:11 PM PLANISHER [facility] Leukocytes 9.4 3.4 - 9.6 07/18/2018 [facility] x10(9)/L 10:11 PM [facility] Specimen Anatomical Collection Method Collection Time Receive d Time (Source) Location / / Volume Laterality Blood (Blood, 07/18/2018 9:35 PM 07/18/19 19 Venous) PLANISHER 10:02 PM PLANISHER Sheela Peoples APRN, R.N. LAB BLOOD ADD-ON Performing Organization Address [facility]/ZIP [facility] [place], [place] Phon e Number [facility] - [address] [phone] [facility] (ABNORMAL) Phosphorus Inorganic (07/18/2018 9:34 PM PLANISHER) Patholo gist Method Time Signature Phosphorus 2.2 (L) 2.5 - 4.5 07/18/2018 [facility] (Inorganic), S mg/dL 10:39 PM PLANISHER LABORATORIES - [facility] Specimen Anatomical Collection Method Collection Time Receive d Time (Source) Location / / Volume Laterality Blood (Blood, 07/18/2018 9:34 PM 07/18/19 Venous) PLANISHER 10:02 PM PLANISHER Sheela Peoples APRN, R.N. LAB BLOOD ADD-ON Performing Organization Address [facility] Phon e Number [facility] - [address] [phone] [facility] Magnesium (07/18/2018 9:34 PM PLANISHER) P athologist Signature Magnesium, S 2.1 1.7 - 2.3 07/18/2018 [facility] mg/dL 10:39 PM PLANISHER LABORATORIES [facility] Specimen Anatomical Collection Method Collection Time Receive d Time (Source) Location / / Volume Laterality Blood (Blood, 07/18/2018 9:34 PM 07/18/19 Venous) PLANISHER 10:02 PM PLANISHER Sheela Peoples APRN, R.N. LAB BLOOD ADD-ON Performing Organization Address [facility]/ZIP [facility] [place], [place] Phon e Number [facility] - [address] [phone] [facility] (ABNORMAL) Basic Metabolic Panel (07/18/2018 9:34 PM PLANISHER) P athologist Signature Potassium, S 4.1 3.6 - 5.2 07/18/2018 [facility] mmol/L 10:39 PM PLANISHER LABORATORIES - [facility] Sodium, S 138 135 - 145 07/18/2018 [facility] mmol/L 10:39 PM PLANISHER LABORATORIES - [facility] Chloride, S 99 98 - 107 07/18/2018 [facility] mmol/L 10:39 PM PLANISHER LABORATORIES - [facility] Bicarbonate, S 29 22 - 29 07/18/2018 [facility] mmol/L 10:39 PM PLANISHER LABORATORIES - [facility] Anion Gap 11 7 - 15 07/18/2018 [facility] 10:39 PM PLANISHER LABORATORIES - [facility] BUN (Blood 15 6 - 21 07/18/2018 [facility] Urea mg/dL 10:39 PM PLANISHER LABORATORIES - Nitrogen), S [facility] Creatinine, S 0.59 0.59 - 07/18/2018 [facility] 1.04 mg/dL 10:39 PM PLANISHER LABORATORIES [facility] eGFR-Non >90 >=60 07/18/2018 [facility] Black/ mL/min/BSA 10:39 PM [facility] LABORATORIES - [facility] Comment: ----ADDITIONAL INFORMATION---- Estimated GFR calculated using the 2009 CKD_EPI creatinine equation. eGFR-Black/ >90 >=60 mL/min/BSA 07/18/2018 10:3 9 [facility] LABORATORIES [facility] Comment: ----ADDITIONAL INFORMATION---- Estimated GFR calculated using the 2009 CKD_EPI creatinine equation. Calcium, Total, S 8.6 (L) 8.8 - 10.2 07/18/2018 10:39 PM [facility] mg/dL [facility] LABORATORIES [facility] Glucose, S 112 70 - 140 mg/dL 07/18/2018 10:39 PM [facility] LABORATORIES [facility] Specimen Anatomical Collection Method Collection Time Receive d Time (Source) Location / / Volume Laterality Blood (Blood, 07/18/2018 9:34 PM 07/18/19 19 Venous) PLANISHER 10:02 PM PLANISHER Sheela Peoples APRN, R.N. LAB BLOOD ADD-ON Performing Organization Address City/State/ZIP Code Phon e Number [facility] - [address] [place], [place] [address] [facility] DX Chest Portable 1 View (07/18/2018 3:46 PM PLANISHER) Anatomical Region Laterality Modality Chest, Thoracic RST LOS, Thoracic ARZ LOS, Thoracic N/A Digital Radiography FLA LOS Specimen (Source) Anatomical Collection Method Collection Time Re ceived Time Location / / Volume Laterality 07/18/2018 3:58 PM PLANISHER Impressions 07/18/2018 3:59 PM PLANISHER IMPRESSION: ??Since earlier today, left chest tube has been placed. The left pleural effusion has decreased. Unchange d small left apical pneumothorax. Again seen are multiple left rib fractures. At electasis or infiltrate left lung base. Narrative 07/18/2018 3:59 PM PLANISHER EXAM: ??DX CHEST PORTABLE 1 VIEW Procedure Note Yuriy Hudson M.D. - 07/18/2018Forma tting of this note might be different from the original. EXAM: DX CHEST PORTABLE 1 VIEW IMPRESSION: Since earlier today, left ch est tube has been placed. The left pleural effusion has decreased. Unchange d small left apical pneumothorax. Again seen are multiple left rib fractures. At electasis or infiltrate left lung base. Sheela Peoples APRN RAlberto. IMG DIAGNOSTIC IMAGING [place] OCEDURES Phosphorus Inorganic (07/18/2018 3:45 PM PLANISHER) [facility] Signature Phosphorus 3.2 2.5 - 4.5 07/18/2018 [facility] (Inorganic), S mg/dL 5:49 PM PLANISHER LABORATORIES - [facility] Specimen Anatomical Collection Method Collection Time Receive d Time (Source) Location / / Volume Laterality Blood (Blood, 07/18/2018 3:45 PM 07/18/19 19 4:04 Venous) PLANISHER PM PLANISHER Sheela Peoples APRN RAlberto. LAB BLOOD ADD-ON Performing Organization Address City/State/ZIP Code Phon e Number [facility] - [address] [facility] [address] [place], [place] [address] [facility] (ABNORMAL) Basic Metabolic Panel (07/18/2018 3:45 PM PL[facility]ISHER) [facility] Method Time Signature Potassium, P 4.7 3.6 - 5.2 07/18/2018 [facility] mmol/L 4:05 PM PLANISHER LABORATORIES - [facility] Sodium, P 141 135 - 145 07/18/2018 [facility] mmol/L 4:05 PM PLANISHER LABORATORIES - [facility] Chloride, P 100 98 - 107 07/18/2018 [facility] mmol/L 4:05 PM PLANISHER LABORATORIES - [facility] Bicarbonate, P 33 (H) 22 - 29 07/18/2018 [facility] mmol/L 4:05 PM PLANISHER LABORATORIES - [facility] Anion Gap, P 8 7 - 15 07/18/2018 [facility] 4:05 PM PLANISHER LABORATORIES - [facility] BUN (Blood 12 6 - 21 07/18/2018 [facility] Urea mg/dL 4:05 PM PLANISHER LABORATORIES - Nitrogen), P [facility] Creatinine, P 0.57 (L) 0.59 - 07/18/2018 [facility] 1.04 4:05 PM PLANISHER LABORATORIES - mg/dL [facility] eGFR-Black/Afr >90 >=60 07/18/2018 [facility] ican Vietnamese mL/min/BS 4:05 PM PLANISHER LABORATORIES - A [facility] Comment: ----ADDITIONAL INFORMATION---- Estimated GFR calculated using the 2009 CKD_EPI creatinine equation. eGFR Non-Black/ >90 >=60 mL/min/BSA 07/18/2018 4:05 [facility] Vietnamese PM PLANISHER LABORATORIES [facility] Comment: ----ADDITIONAL INFORMATION---- Estimated GFR calculated using the 2009 CKD_EPI creatinine equation. Calcium, Total, P 9.1 8.8 - 10.2 mg/dL 07/18/2018 4:05 PM [facility] PLANISHER LABORATORIES - [facility] S Glucose, P 102 70 - 140 mg/dL 07/18/2018 4:05 PM [facility] LABORATORIES [facility] S Specimen Anatomical Collection Method Collection Time Receive d Time (Source) Location / / Volume Laterality Blood (Blood, 07/18/2018 3:45 PM 07/18/19 19 3:49 Venous) PLANISHER PM PLANISHER Sheela Peoples APRN, RYvonneNYvonne LAB BLOOD ADD-ON Performing Organization Address City/State/ZIP Code Phon e Number [facility]ATORIES - [address] [phone] [facility] PLEURA DRAIN PERC WO IMG GUID (07/18/2018 2:35 PM PLANISHER) Narrative Yeison Butt M.D. - 07/18/2018 2:35 PM PLANISHER Salty Elena M.D. ? 07/18/2018 ??3:48 PM Pleural Drains Date/Time: 07/18/2018 3:45 PM Performed by: SALTY ELENA Authorized by: YEISON BUTT Care team members present: Jesus Aburto (sedation) Consent ??Consent obtained: verbal and written ??Consent given by: patient ??The benefits, risks and alternatives to the procedure and the potential need for sedation or anesthesia as well as the names, roles, and responsibilities of healthcare team memb ers performing significant interventional tasks were discussed with the patient and/or decision maker: yes ?The benefits, risks and alternatives to the possible need for blood products were discussed with the patient and/or decision maker: consent for transfusion was obtained Burton protocol ??All relevant documentation and testin g were reviewed and available. All required blood products, implants, devic es and/or special equipment were made available as applicable. The pre-pr ocedure verification was conducted, the correct site was marked i f required, and the procedural time out was conducted prior to performi ng the procedure and confirmed in a procedural pause: yes ?? Pre-procedure details: ??Indications: benign pleural effusion ??Appropriate hand hygiene, gown, cap, mask, protective eyewear, sterile gloves, skin preparation, sterile drape, and strict aseptic technique were utilized as applicable for the procedure : yes ?Site preparation: chlorhexidine Sedation/Anesthesia (see MAR for exact d osages): ??Anesthesia method: procedural sedatio n and local infiltration ??Planned sedation level achieved: yes ??Present during sedation (intra-servic e time). A trained independent observer assisted with monitoring the pa tient's level of consciousness and physiological status throughout the proc edure (see nursing documentation): yes ??Patient tolerance of sedation: tolera anastasiya well ??Local infiltrate type: lidocaine Procedure details: ??Needle decompression: no ??Placement location: left anterior axi llary ??Intercostal space: 6th ??Tube type: chest tube ??Tube size (Fr): 28 ??Tube characteristics: straight ??Tube connected to drainage device at: -20 suction ??Drainage characteristics: serosanguin ous (200cc) ??Ultrasound guidance: no Post-procedure details: ??Post-insertion x-ray performed: yes ??X-ray findings: tube in good position ??Procedure successful: yes ??Complications: no apparent complicati ons Yeison Butt M.D. PROCEDURE/MINOR SURGICAL ORD ERABLES (ABNORMAL) Phosphorus Inorganic (07/18/2018 2:02 PM PLANISHER) [facility] Method Time Signature Phosphorus 6.5 (H) 2.5 - 4.5 07/18/2018 [facility] (Inorganic), S mg/dL 3:21 PM [facility]ER LABORATORIES - [facility] Specimen Anatomical Collection Method Collection Time Receive d Time (Source) Location / / Volume Laterality Blood (Blood, 07/18/2018 2:02 PM 07/18/19 19 2:20 Venous) PLANISHER PM PLANISHER Sheela Peoples APRN RAlberto. LAB BLOOD ADD-ON Performing Organization Address City/[facility]/ZIP [facility] [place], [place] Phon e Number [facility]ORATORIES - [address] [address] [facility] Magnesium (07/18/2018 2:02 PM PLANISHER) athologist Signature Magnesium, S 1.8 1.7 - 2.3 07/18/2018 [facility] mg/dL 3:21 PM [facility] LAB[facility]ATORIES - [facility] Specimen Anatomical Collection Method Collection Time Receive d Time (Source) Location / / Volume Laterality Blood (Blood, 07/18/2018 2:02 PM 07/18/19 19 2:20 Venous) PLANISHER PM PLANISHER Sheela Peoples APRN RAlberto. LAB BLOOD ADD-ON Performing Organization Address City/[facility] Code Phon e Number [facility]IES - [address] [address] [facility] (ABNORMAL) Basic Metabolic Panel (07/18/2018 2:02 PM PLANISHER) [facility] Method Time Signature Potassium, P 5.8 (H) 3.6 - 5.2 07/18/2018 [facility] mmol/L 2:22 PM [facility] LAB[facility]ATORIES [facility] Sodium, P 139 135 - 145 07/18/2018 [facility] mmol/L 2:22 PM [facility] Chloride, P 99 98 - 107 07/18/2018 [facility] mmol/L 2:22 PM [facility] Bicarbonate, P 31 (H) 22 - 29 07/18/2018 [facility] mmol/L 2:22 PM [facility] Anion Gap, P 9 7 - 15 07/18/2018 [facility] 2:22 PM [facility] BUN (Blood 11 6 - 21 07/18/2018 [facility] Urea mg/dL 2:22 PM [facility] - Nitrogen), P [facility] Creatinine, P 0.61 0.59 - 07/18/2018 [facility] 1.04 mg/dL 2:22 PM [facility] eGFR-Black/Afr >90 >=60 07/18/2018 [facility] ican Vietnamese mL/min/BSA 2:22 PM [facility] Comment: ----ADDITIONAL INFORMATION---- Estimated GFR calculated using the 2009 CKD_EPI creatinine equation. eGFR Non-Black/ >90 >=60 mL/min/BSA 07/18/2018 2:22 [facility] Vietnamese PM [facility] LAB[facility]ATORIES [facility] Comment: ----ADDITIONAL INFORMATION---- Estimated GFR calculated using the 2009 CKD_EPI creatinine equation. Calcium, Total, P 8.8 8.8 - 10.2 mg/dL 07/18/2018 2:22 PM [facility] Glucose, P 120 70 - 140 mg/dL 07/18/2018 2:22 PM [facility] S Specimen Anatomical Collection Method Collection Time Receive d Time (Source) Location / / Volume Laterality Blood (Blood, 07/18/2018 2:02 PM 07/18/19 19 2:06 Venous) PLANISHER PM PLANISHER Sheela Peoples APRN RAlberto. LAB BLOOD ADD-ON Performing Organization Address City/State/ZIP Code Phon e Number [facility]IES - [address] [address] [facility] CT Retrospective 3D Post Processing (07/18/2018 11:33 AM PLANISHER) Anatomical Region Laterality Modality Abdomen, Pelvis, Musculoskeletal RST LOS, Abdominal Computed Tomography ARZ LOS, Musculoskeletal ARZ LOS, Neuroradiology ARZ LOS, Thoracic ARZ LOS, Vascular Interventional ARZ LOS, Abdominal FLA LOS, Thoracic FLA LOS, Neuroradiology FLA LOS, Muskuloskeletal FLA LOS Specimen (Source) Anatomical Collection Method Collection Time Re ceived Time Location / / Volume Laterality 07/18/2018 12:49 PM PLANISHER Impressions 07/18/2018 12:51 PM PLANISHER IMPRESSION: 3-D images performed on an independent w orkstation and reside in the CT examination of the chest in [facility] 019. Narrative 07/18/2018 12:51 PM PLANISHER EXAM: CT RETROSPECTIVE 3D POST PROCESSING 3D Post-Processing performed on an datatracker workstation. Procedure Note Cristofer De Oliveira M.D. - 07/18/2018Forma tting of this note might be different from the original. EXAM: CT RETROSPECTIVE 3D POST PROCESSIN G 3D Post-Processing performed on an datatracker workstation. IMPRESSION: 3-D images performed on an independent w orkstation and reside in the CT examination of the chest in [facility] 019. Salty GARCIA CT PROCEDURES CT Chest with IV Contrast (07/18/2018 11:14 AM PLANISHER) Anatomical Region Laterality Modality Chest, Thoracic RST LOS, Thoracic ARZ LOS, Thoracic N/A Computed Tomography ARZ LOS, Thoracic FLA LOS Specimen (Source) Anatomical Collection Method Collection Time Re ceived Time Location / / Volume Laterality 07/18/2018 11:17 AM PLANISHER Impressions 07/18/2018 12:16 PM PLANISHER IMPRESSION: 1. Enlarging left and new trace right pl eural effusions with associated compressive atelectasis. No high density or layering blood products to suggest hemothorax as queried. 2. Stable tiny left apical pneumothorax with multiple left-sided rib fractures. Single bubble of gas within the mediasti num adjacent to the esophagus which is likely post operative, however recommend attention on follow up. ?? 3. Interval splenectomy with new left up per abdominal drain and hematoma anterior to the left kidney. ??Small sanchez unt of free intraperitoneal gas is likely post operative. Narrative 07/18/2018 12:16 PM PLANISHER EXAM: CT CHEST WITH IV CONTRAST No 3D post-processing performed. COMPARISON: CT chest 07/15/2017. FINDINGS: Since CT 07/15/2018, interval increase in size of the left pleural effusion with associated compressive atelectasis. No h igh density or layering products to suggest hemothorax. New trace right pleu ral effusion with associated compressive atelectasis. Multiple unchanged displaced left fourth -sixth and nondisplaced left third, seventh, and eighth rib fractures. Stabl e tiny left apical pneumothorax (series 6, image 29). A single bubble of gas is seen in the mediastinum adjacent to the esophagus (series 3, image 90) could sim ply be post operative, but recommend attention on follow up. ??Small amount o f debris in the mid esophagus which can be seen in the setting of gastroesophage al reflux (series 3, image 123). Normal caliber thoracic aorta. ??Minimal atherosclerotic calcifications in the descending aorta. ??No filling defects w ithin the central pulmonary arteries. ?? Unchanged anterior wedging of a midthora cic vertebral body. Interval splenectomy with left upper abd ominal drain and significant decrease in upper abdominal blood products. Few smal l bubbles of free intraperitoneal gas is likely post operative. ??Residual small collection of higher density blood products anterior to the left kidney (fo r example series 3, image 280) measuring 3.3 x 3.8 cm. Small amount of low-densit y left perinephric fluid/fat stranding is likely postoperative. Left hepatic lo be cyst or hemangioma (series 6, image 145), unchanged. ?? Procedure Note Tammie Andino M.D., Ph.D. - 12/2018 EXAM: CT CHEST WITH IV CONTRAST No 3D post-processing performed. COMPARISON: CT chest 07/15/2017. FINDINGS: Since CT 07/15/2018, interval increase in size of the left pleural effusion with associated compressive atelectasis. No h igh density or layering products to suggest hemothorax. New trace right pleu ral effusion with associated compressive atelectasis. Multiple unchanged displaced left fourth -sixth and nondisplaced left third, seventh, and eighth rib fractures. Stabl e tiny left apical pneumothorax (series 6, image 29). A single bubble of gas is seen in the mediastinum adjacent to the esophagus (series 3, image 90) could sim ply be post operative, but recommend attention on follow up. Small amount of debris in the mid esophagus which can be seen in the setting of gastroesophage al reflux (series 3, image 123). Normal caliber thoracic aorta. Minimal a therosclerotic calcifications in the descending aorta. No filling defects wit hin the central pulmonary arteries. Unchanged anterior wedging of a midthora cic vertebral body. Interval splenectomy with left upper abd ominal drain and significant decrease in upper abdominal blood products. Few smal l bubbles of free intraperitoneal gas is likely post operative. Residual small co llection of higher density blood products anterior to the left kidney (fo r example series 3, image 280) measuring 3.3 x 3.8 cm. Small amount of low-densit y left perinephric fluid/fat stranding is likely postoperative. Left hepatic lo be cyst or hemangioma (series 6, image 145), unchanged. IMPRESSION: 1. Enlarging left and new trace right pl eural effusions with associated compressive atelectasis. No high density or layering blood products to suggest hemothorax as queried. 2. Stable tiny left apical pneumothorax with multiple left-sided rib fractures. Single bubble of gas within the mediasti num adjacent to the esophagus which is likely post operative, however recommend attention on follow up. 3. Interval splenectomy with new left up per abdominal drain and hematoma anterior to the left kidney. Small amoun t of free intraperitoneal gas is likely post operative. Sheela Peoples APRN, RYvonneN. IMG CT PROCEDURES (ABNORMAL) Phosphorus Inorganic (07/18/2018 6:29 AM PLANISHER) [facility] Method Time Signature Phosphorus 1.9 (L) 2.5 - 4.5 07/18/2018 [facility] (Inorganic), S mg/dL 7:21 AM [facility] LAB[facility]ATORIES [facility] Specimen Anatomical Collection Method Collection Time Receive d Time (Source) Location / / Volume Laterality Blood (Blood, 07/18/2018 6:29 AM 07/18/19 19 6:42 Venous) PLANISHER AM PLANISHER Moustapha Knott APRN, C.N.P. LAB BLOOD ADD-ON Performing Organization Address City/State/ZIP Code Phon e Number [facility]IES - [address] [place], [place] [address] [facility] (ABNORMAL) CBC without Differential (07/18/2018 6:29 AM PLANISHER) [facility] Method Time Signature Hemoglobin 14.6 11.6 - 07/18/2018 [facility] 15.0 g/dL 6:56 AM [facility] LAB[facility]ATORIES - [facility] Hematocrit 43.8 35.5 - 07/18/2018 [facility] 44.9 % 6:56 AM [facility] LAB[facility]ATORIES [facility] Erythrocytes 4.89 3.92 - 07/18/2018 [facility] 5.13 6:56 AM PL[facility]ER LABORATORIES - x10(12)/L [facility] MCV 89.6 78.2 - 07/18/2018 [facility] 97.9 fL 6:56 AM [facility] - [facility] RBC Distrib 16.3 (H) 12.2 - 07/18/2018 [facility] Width 16.1 % 6:56 AM [facility] - [facility] Platelet Count 166 157 - 371 07/18/2018 [facility] x10(9)/L 6:56 AM [facility] - [facility] Leukocytes 12.5 (H) 3.4 - 9.6 07/18/2018 [facility] x10(9)/L 6:56 AM [facility] - [facility] Specimen Anatomical Collection Method Collection Time Receive d Time (Source) Location / / Volume Laterality Blood (Blood, 07/18/2018 6:29 AM 07/18/19 19 6:42 Venous) PLANISHER AM PLANISHER Mihaela Patterson APRN.N.P. LAB BLOOD ADD-ON Performing Organization Address City/State/ZIP Code Phon e Number [facility]IES - [address] [place], [place] [address] [facility] (ABNORMAL) Basic Metabolic Panel (07/18/2018 6:29 AM PLANISHER) [facility] gist Method Time Signature Potassium, S 3.7 3.6 - 5.2 07/18/2018 [facility] mmol/L 7:21 AM [facility] - [facility] Sodium, S 141 135 - 145 07/18/2018 [facility] mmol/L 7:21 AM [facility] - [facility] Chloride, S 102 98 - 107 07/18/2018 [facility] mmol/L 7:21 AM [facility] - [facility] Bicarbonate, S 26 22 - 29 07/18/2018 [facility] mmol/L 7:21 AM [facility] - [facility] Anion Gap 13 7 - 15 07/18/2018 [facility] 7:21 AM [facility] - [facility] BUN (Blood 9 6 - 21 07/18/2018 [facility] Urea mg/dL 7:21 AM [facility] LABORATORIES - Nitrogen), S [facility] Creatinine, S 0.56 (L) 0.59 - 07/18/2018 [facility] 1.04 7:21 AM [facility]ER LABORATORIES - mg/dL [facility] eGFR-Non >90 >=60 07/18/2018 [facility] Black/ mL/min/BS 7:21 AM [facility] LABORATORIES - Vietnamese A [facility] Comment: ----ADDITIONAL INFORMATION---- Estimated GFR calculated using the 2009 CKD_EPI creatinine equation. eGFR-Black/ >90 >=60 mL/min/BSA 07/18/2018 7:21 [facility] Vietnamese AM [facility] LAB[facility]ATORIES - [facility] Comment: ----ADDITIONAL INFORMATION---- Estimated GFR calculated using the 2009 CKD_EPI creatinine equation. Calcium, Total, S 8.6 (L) 8.8 - 10.2 07/18/2018 7:21 AM [facility] mg/dL [facility] LABORATORIES - [facility] S Glucose, S 77 70 - 140 mg/dL 07/18/2018 7:21 AM [facility] - [facility] S Specimen Anatomical Collection Method Collection Time Receive d Time (Source) Location / / Volume Laterality Blood (Blood, 07/18/2018 6:29 AM 07/18/19 6:42 Venous) PLANISHER AM PLANISHER Moustapha Knott APRN, C.N.P. LAB BLOOD ADD-ON Performing Organization Address City/State/ZIP Code Phon e Number [facility]IES - [address] DX Chest Portable 1 View (07/18/2018 5:22 AM PLANISHER) Anatomical Region Laterality Modality Chest, Thoracic RST LOS, Thoracic ARZ LOS, Thoracic N/A Digital Radiography FLA LOS Specimen (Source) Anatomical Collection Method Collection Time Re ceived Time Location / / Volume Laterality 07/18/2018 5:37 AM PLANISHER Impressions 07/18/2018 5:40 AM PLANISHER IMPRESSION: ??Small left apical pneumothorax, stable since yesterday. Left basilar chest tube. Dense consolidation left base behind the heart. Left pleural effusion, possibly hemothorax, related t o left rib fractures. Right lung clear. Narrative 07/18/2018 5:40 AM PLANISHER EXAM: ??DX CHEST PORTABLE 1 VIEW Procedure Note Giancarlo Gomez M.D. - 07/18/2018Format ting of this note might be different from the original. EXAM: DX CHEST PORTABLE 1 VIEW IMPRESSION: Small left apical pneumothor ax, stable since yesterday. Left basilar chest tube. Dense consolidation left base behind the heart. Left pleural effusion, possibly hemothorax, related t o left rib fractures. Right lung clear. Moustapha Knott APRN, C.N.P. IMG DIAGNOSTIC IMAGING PROCE [facility] DX Chest Portable 1 View (07/17/2018 5:21 AM PLANISHER) Anatomical Region Laterality Modality Chest, Thoracic RST LOS, Thoracic ARZ LOS, Thoracic N/A Digital Radiography FLA LOS Specimen (Source) Anatomical Collection Method Collection Time Re ceived Time Location / / Volume Laterality 07/17/2018 5:26 AM PLANISHER Impressions 07/17/2018 5:33 AM PLANISHER IMPRESSION: ??Since yesterday the ETT and NG have been removed. New retrocardiac and left lower lung opacities. A tiny le ft apical pneumothorax has slightly increased in size. Left pleural effusion . Left basilar chest tube or left upper quadrant surgical drain. Narrative 07/17/2018 5:33 AM PLANISHER EXAM: ??DX CHEST PORTABLE 1 VIEW Procedure Note Luan Suarez M.D. - 07/17/2018F ormatting of this note might be different from the original. EXAM: DX CHEST PORTABLE 1 VIEW IMPRESSION: Since yesterday the ETT and NG have been removed. New retrocardiac and left lower lung opacities. A tiny le ft apical pneumothorax has slightly increased in size. Left pleural effusion . Left basilar chest tube or left upper quadrant surgical drain. Vonnie Mccarthy M.D. IMG DIAGNOSTIC IMAGING PROCE [facility] Glucose, POCT (07/17/2018 4:24 AM PLANISHER) Analysis Performed At Patho logist Time Signature Glucose, Collected DEFAULT 07/17/2018 [facility] POCT, B 4:24 AM [facility] LAB[facility]ATORIES - [facility] Specimen Anatomical Collection Method Collection Time Receive d Time (Source) Location / / Volume Laterality Blood (Blood, 07/17/2018 4:24 AM 07/17/19 19 4:24 Capillary) PLANISHER AM PLANISHER Moustapha Knott APRN, C.N.P. LAB POCT ORDERABLES-MANUAL Performing Organization Address City/State/ZIP Code Phon e Number [facility]IES - [address] [place], [place] [address] [facility] Magnesium (07/17/2018 4:24 AM PLANISHER) P athologist Signature Magnesium, S 2.1 1.7 - 2.3 07/17/2018 [facility] mg/dL 5:21 AM PLANISHER [facility] Specimen Anatomical Collection Method Collection Time Receive d Time (Source) Location / / Volume Laterality Blood (Blood, 07/17/2018 4:24 AM 07/17/19 19 4:44 Venous) PLANISHER AM PLANISHER Mariano Ferrer M.D., Ph.D. LAB BLOOD ADD-ON Performing Organization Address City/[facility] Phon e Number [facility]IES - [address] [phone] [facility] (ABNORMAL) CBC without Differential (07/17/2018 4:24 AM PLANISHER) Patholo gist Method Time Signature Hemoglobin 14.9 11.6 - 07/17/2018 [facility] 15.0 g/dL 5:03 AM [facility] Hematocrit 44.5 35.5 - 07/17/2018 [facility] 44.9 % 5:03 AM [facility] Erythrocytes 5.09 3.92 - 07/17/2018 [facility] 5.13 5:03 AM PLAN[facility]ER LABORATORIES - x10(12)/L [facility] MCV 87.4 78.2 - 07/17/2018 [facility] 97.9 fL 5:03 AM [facility] RBC Distrib 16.7 (H) 12.2 - 07/17/2018 [facility] Width 16.1 % 5:03 AM [facility] Platelet Count 112 (L) 157 - 371 07/17/2018 [facility] x10(9)/L 5:03 AM [facility] Leukocytes 11.0 (H) 3.4 - 9.6 07/17/2018 [facility] x10(9)/L 5:03 AM [facility] Specimen Anatomical Collection Method Collection Time Receive d Time (Source) Location / / Volume Laterality Blood (Blood, 07/17/2018 4:24 AM 07/17/19 19 4:44 Venous) PLANISHER AM PLANISHER Mariano Ferrer M.D., Ph.D. LAB BLOOD ADD-ON Performing Organization Address City/[facility] Code Phon e Number [facility]IES - [address] [place], [place] [address] [facility] (ABNORMAL) Basic Metabolic Panel (07/17/2018 4:24 AM PLANISHER) P athologist Signature Potassium, S 4.0 3.6 - 5.2 07/17/2018 [facility] mmol/L 5:21 AM [facility] - [facility] Sodium, S 139 135 - 145 07/17/2018 [facility] mmol/L 5:21 AM [facility] - [facility] Chloride, S 104 98 - 107 07/17/2018 [facility] mmol/L 5:21 AM [facility] - [facility] Bicarbonate, S 23 22 - 29 07/17/2018 [facility] mmol/L 5:21 AM [facility] LAB[facility] Anion Gap 12 7 - 15 07/17/2018 [facility] 5:21 AM [facility] - [facility] BUN (Blood 8 6 - 21 07/17/2018 [facility] Urea mg/dL 5:21 AM [facility] LABORATORIES - Nitrogen), S [facility] Creatinine, S 0.59 0.59 - 07/17/2018 [facility] 1.04 mg/dL 5:21 AM [facility] LAB[facility] eGFR-Non >90 >=60 07/17/2018 [facility] Black/ mL/min/BSA 5:21 AM [facility]ER LABORATORIES - [facility] Comment: ----ADDITIONAL INFORMATION---- Estimated GFR calculated using the 2009 CKD_EPI creatinine equation. eGFR-Black/ >90 >=60 mL/min/BSA 07/17/2018 5:21 [facility] Vietnamese [facility] Comment: ----ADDITIONAL INFORMATION---- Estimated GFR calculated using the 2009 CKD_EPI creatinine equation. Calcium, Total, S 8.0 (L) 8.8 - 10.2 07/17/2018 5:21 AM [facility] mg/dL [facility] Glucose, S 90 70 - 140 mg/dL 07/17/2018 5:21 AM [facility] Specimen Anatomical Collection Method Collection Time Receive d Time (Source) Location / / Volume Laterality Blood (Blood, 07/17/2018 4:24 AM 07/17/19 19 4:44 Venous) PLANISHER AM [facility] Mariano Ferrer M.D., Ph.D. LAB BLOOD ADD-ON Performing Organization Address City/State/ZIP Code Phon e Number [facility] - [address] [place], [place] [address] [facility] Glucose, POCT (07/17/2018 4:15 AM PLANISHER) P athologist Signature Glucose, POCT, 85 70 - 140 07/17/2018 [facility] mg/dL 4:25 AM [facility] SERVICES Specimen Anatomical Collection Method Collection Time Receive d Time (Source) Location / / Volume Laterality Blood 07/17/2018 4:15 AM 9 4:25 PLANISHER AM PLANISHER Unknown Provider LAB POCT ORDERABLES-MANUAL Performing Organization Address City/[facility]/ZIP Code Phon e Number [facility] [address] [place] [address] Glucose, POCT (07/17/2018 12:08 AM PLANISHER) Analysis Performed At Patho logist Time Signature Glucose, POCT, 82 70 - 140 07/17/2018 [facility] B mg/dL 12:53 AM PLAN[facility]ER SERVICES Site Capillary 07/17/2018 [facility] 12:53 AM [facility] SERVICES Specimen Anatomical Collection Method Collection Time Receive d Time (Source) Location / / Volume Laterality Blood 07/17/2018 12:08 07/17/2018 AM PLANISHER 12:53 AM PLANISHER Unknown Provider LAB POCT ORDERABLES-MANUAL Performing Organization Address City/[facility] Code Phon e Number [facility] [address] [place] [address] Glucose, POCT (07/17/2018 12:08 AM PLANISHER) Analysis Performed At Path logist Time Signature Glucose, Collected DEFAULT 07/17/2018 [facility] POCT, B 12:08 AM [facility]ATOR[facility] - [facility] Specimen Anatomical Collection Method Collection Time Receive d Time (Source) Location / / Volume Laterality Blood (Blood, 07/17/2018 12:08 07/17/2018 Capillary) AM PLANISHER 12:08 AM PLANISHER Moustapha Knott APRN, C.N.P. LAB POCT ORDERABLES-MANUAL Performing Organization Address City/[facility] Phon e Number [facility]IES - [address] [place], [place] [address] [facility] Glucose, POCT (07/16/2018 8:10 PM PLANISHER) Analysis Performed At Patho logist Time Signature Glucose, POCT, 89 70 - 140 07/16/2018 [facility] mg/dL 8:11 PM PLANISHER SERVICES Site Capillary 07/16/2018 [facility] 8:11 PM [facility] SERVICES Specimen Anatomical Collection Method Collection Time Receive d Time (Source) Location / / Volume Laterality Blood 07/16/2018 8:10 PM 9 8:11 PLANISHER PM PLANISHER Unknown Provider LAB POCT ORDERABLES-MANUAL Performing Organization Address City/[facility] Code Phon e Number [facility] [address] [place] [address] Glucose, POCT (07/16/2018 8:10 PM PLANISHER) Analysis Performed At Patho logist Time Signature Glucose, Collected DEFAULT 07/16/2018 [facility] POCT, B 8:10 PM [facility] - [facility] Specimen Anatomical Collection Method Collection Time Receive d Time (Source) Location / / Volume Laterality Blood (Blood, 07/16/2018 8:10 PM 07/16/19 19 8:10 Capillary) PLANISHER PM PLANISHER Nadir Patterson APRNNChad LAB POCT ORDERABLES-MANUAL Performing Organization Address City/[facility] Phon e Number [facility]IES - [address] [place], [place] [address] [facility] Glucose, POCT (07/16/2018 4:12 PM PLANISHER) P athologist Signature Glucose, POCT, 106 70 - 140 07/16/2018 [facility] mg/dL 4:13 PM PLANISHER SERVICES Site ARTLINE 07/16/2018 [facility] 4:13 PM [facility] SERVICES Specimen Anatomical Collection Method Collection Time Receive d Time (Source) Location / / Volume Laterality Blood 07/16/2018 4:12 PM 9 4:13 PLANISHER PM PLANISHER Unknown Provider LAB POCT ORDERABLES-MANUAL Performing Organization Address City/[facility] Phon e Number [facility] [address] [place] [address] Glucose, POCT (07/16/2018 4:12 PM PLANISHER) Analysis Performed At Patho logist Time Signature Glucose, Collected DEFAULT 07/16/2018 [facility] POCT, B 4:12 PM PLANISHER LABORATORIES - [facility] Specimen Anatomical Collection Method Collection Time Receive d Time (Source) Location / / Volume Laterality Blood (Blood, 07/16/2018 4:12 PM 07/16/19 19 4:12 Capillary) PLANISHER PM PLANISHER Mihaela Patterson APRN.N.P. LAB POCT ORDERABLES-MANUAL Performing Organization Address City/State/ZIP Code Phon e Number [facility]IES - [address] [place], [place] [address] [facility] Patient Status (07/16/2018 11:49 AM PLANISHER) P athologist Signature FIO2 0.40 0.21=AIR 07/16/2018 [facility] 11:54 AM PLANISHER [facility] Device Vent 07/16/2018 [facility] 11:54 AM PLANISHER [facility] Specimen Anatomical Collection Method Collection Time Receive d Time (Source) Location / / Volume Laterality Blood 07/16/2018 11:49 07/16/2018 AM PLANISHER 11:54 AM PLANISHER Mariano Ferrer M.D., Ph.D. LAB BLOOD NON ADD-ON Performing Organization Address City/State/ZIP Code Phon e Number [facility] - [address] [place], [place] [address] [facility] (ABNORMAL) Blood Gas with Coox, Arterial (07/16/2018 11:49 AM PLANISHER) Patholo gist Method Time Signature pO2 158 (H) 83 - 108 07/16/2018 [facility] mm Hg 11:56 AM PLANISHER LABORATORIES [facility] pCO2 41 32 - 45 07/16/2018 [facility] mm Hg 11:56 AM PLANISHER [facility] pH 7.36 7.35 - 07/16/2018 [facility] 7.45 pH 11:56 AM PLANISHER [facility] Base Excess -2 -2 - 3 07/16/2018 [facility] mmol/L 11:56 AM PLANISHER [facility] HCO3 23 22 - 26 07/16/2018 [facility] mmol/L 11:56 AM [facility] Hemoglobin, B 16.1 (H) 11.6 - 07/16/2018 [facility] 15.0 g/dL 11:56 AM PLANISHER [facility] O2Hb 97.3 94.0 - 07/16/2018 [facility] 98.0 % 11:56 AM PLANISHER [facility] COHb 1.4 <3.0 % 07/16/2018 [facility] 11:56 AM PLANISHER LABORATORIES [facility] MetHb <1.0 <1.5 % 07/16/2018 [facility] 11:56 AM PLANISHER [facility] CtO2 22.3 (H) 18.0 - 07/16/2018 [facility] 21.0 vol 11:56 AM PLANISHER LABORATORIES - % [facility] Arterial Art Line 07/16/2018 [facility] Sample Site 11:56 AM PLANISHER LABORATORIES - [facility] Specimen Anatomical Collection Method Collection Time Receive d Time (Source) Location / / Volume Laterality Blood (Blood, 07/16/2018 11:49 07/16/2018 Arterial) AM PLANISHER 11:54 AM PLANISHER Mariano Ferrer M.D., Ph.D. LAB BLOOD NON ADD-ON Performing Organization Address City/[facility] Phon e Number [facility] - [address] [place] [address] [facility] (ABNORMAL) CBC without Differential (07/16/2018 11:48 AM PLANISHER) [facility] Method Time Signature Hemoglobin 16.0 (H) 11.6 - 07/16/2018 [facility] 15.0 g/dL 12:46 PM PLANISHER LABORATORIES - [facility] Hematocrit 46.0 (H) 35.5 - 07/16/2018 [facility] 44.9 % 12:46 PM PLANISHER LABORATORIES - [facility] Erythrocytes 5.37 (H) 3.92 - 07/16/2018 [facility] 5.13 12:46 PM PLANISHER LABORATORIES - x10(12)/L [facility] MCV 85.7 78.2 - 07/16/2018 [facility] 97.9 fL 12:46 PM PLANISHER LABORATORIES - [facility] RBC Distrib 16.6 (H) 12.2 - 07/16/2018 [facility] Width 16.1 % 12:46 PM PLANISHER LABORATORIES - [facility] Platelet Count 128 (L) 157 - 371 07/16/2018 [facility] x10(9)/L 12:46 PM PLANISHER LABORATORIES - [facility] Leukocytes 9.6 3.4 - 9.6 07/16/2018 [facility] x10(9)/L 12:46 PM PLANISHER LAB[facility]ATORIES - [facility] Specimen Anatomical Collection Method Collection Time Receive d Time (Source) Location / / Volume Laterality Blood (Blood, 07/16/2018 11:48 07/16/2018 Arterial) AM PLANISHER 12:24 PM PLANISHER Vonnie Mccarthy M.D. LAB BLOOD ADD-ON Performing Organization Address City/[facility] Code Phon e Number [facility] - [address] [place], [place] [address] [facility] Glucose, POCT (07/16/2018 11:48 AM PLANISHER) Analysis Performed At Patho logist Time Signature Glucose, Collected DEFAULT 07/16/2018 [facility] POCT, B 11:48 AM PLANISHER LAB[facility]ATORIES - [facility] Specimen Anatomical Collection Method Collection Time Receive d Time (Source) Location / / Volume Laterality Blood (Blood, 07/16/2018 11:48 07/16/2018 Capillary) AM PLANISHER 11:48 AM PLANISHER Moustapha Knott APRN, C.N.P. LAB POCT ORDERABLES-MANUAL Performing Organization Address City/[facility]/ZIP Code Phon e Number [facility] - [address] [place], [place] [address] [facility] Glucose, POCT (07/16/2018 11:47 AM PLANISHER) P athologist Signature Glucose, POCT, 119 70 - 140 07/16/2018 [facility] B mg/dL 11:49 AM PLANISHER SERVICES Site ARTLINE 07/16/2018 [facility] 11:49 AM PLANISHER SERVICES Specimen Anatomical Collection Method Collection Time Receive d Time (Source) Location / / Volume Laterality Blood 07/16/2018 11:47 07/16/2018 AM PLANISHER 11:50 AM PLANISHER Unknown Provider LAB POCT ORDERABLES-MANUAL Performing Organization Address City/[facility]/ZIP Code Phon e Number [facility] [address] [place] [address] Glucose, POCT (07/16/2018 8:12 AM PLANISHER) P athologist Signature Glucose, POCT, 119 70 - 140 07/16/2018 [facility] B mg/dL 8:12 AM PLANISHER SERVICES Site ARTLINE 07/16/2018 [facility] 8:12 AM PLANISHER SERVICES Specimen Anatomical Collection Method Collection Time Receive d Time (Source) Location / / Volume Laterality Blood 07/16/2018 8:12 AM 9 8:13 PLANISHER AM PLANISHER Unknown Provider LAB POCT ORDERABLES-MANUAL Performing Organization Address City/[facility]/ZIP Code Phon e Number [facility] [address] [place] [address] Glucose, POCT (07/16/2018 8:12 AM PLANISHER) Analysis Performed At Patho logist Time Signature Glucose, Collected DEFAULT 07/16/2018 [facility] POCT, B 8:12 AM PLANISHER LABORATORIES - [facility] Specimen Anatomical Collection Method Collection Time Receive d Time (Source) Location / / Volume Laterality Blood (Blood, 07/16/2018 8:12 AM 07/16/19 19 8:12 Capillary) PLANISHER AM PLANISHER Moustapha Walters Nadir Knott APRNNChad LAB POCT ORDERABLES-MANUAL Performing Organization Address City/State/ZIP Code Phon e Number [facility]IES - [address] [place], [place] [address] [facility] CT Lumbar Spine without IV Contrast (07/16/2018 8:04 AM PLANISHER) Anatomical Region Laterality Modality Lumbar Spine, Neuroradiology RST LOS, Neuroradiology N/A Computed Tomography ARZ LOS, Neuroradiology FLA LOS Specimen (Source) Anatomical Collection Method Collection Time Re ceived Time Location / / Volume Laterality 07/16/2018 9:07 AM PLANISHER Impressions 07/16/2018 9:28 AM PLANISHER IMPRESSION: No definitive acute fractures/injury of the thoracic or lumbar spine. Chronic changes as noted. Narrative 07/16/2018 9:28 AM PLANISHER EXAM: CT THORACIC SPINE WITHOUT IV CONTRAST, CT LUMBAR SPINE WITHOUT IV CONTRAST COMPARISON: None. FINDINGS: Minimal endplate irregularity along the superior endplates of T1 through T3, without fracture line eviden t, possibly chronic but technically age indeterminant. Scoliosis, apex to the left, at the thor acolumbar spine, with associated multilevel spondylotic change, more bryant ed inferiorly, particularly along the facet joints. Associated spinal canal na rrowing appears relatively mild to moderate. Neural foraminal narrowing is most marked on the left at L4-L5 and on the right at L5-S1 where it appears mode rate. Other scattered neural foraminal narrowing is relatively mild. Please see CT of the chest abdomen and p tisha for other findings, including multiple left rib fractures. Otherwise negative. Specifically, no acu te fractures. Normal vertebral body height and alignment, allowing for rm es noted above. Procedure Note Sailaja Ching M.D. - 07/16/2018Form atting of this note might be different from the original. EXAM: CT THORACIC SPINE WITHOUT IV CONTR AST, CT LUMBAR SPINE WITHOUT IV CONTRAST COMPARISON: None. FINDINGS: Minimal endplate irregularity along the superior endplates of T1 through T3, without fracture line eviden t, possibly chronic but technically age indeterminant. Scoliosis, apex to the left, at the thor acolumbar spine, with associated multilevel spondylotic change, more bryant ed inferiorly, particularly along the facet joints. Associated spinal canal na rrowing appears relatively mild to moderate. Neural foraminal narrowing is most marked on the left at L4-L5 and on the right at L5-S1 where it appears mode rate. Other scattered neural foraminal narrowing is relatively mild. Please see CT of the chest abdomen and p tisha for other findings, including multiple left rib fractures. Otherwise negative. Specifically, no acu te fractures. Normal vertebral body height and alignment, allowing for rm es noted above. IMPRESSION: No definitive acute fracture s/injury of the thoracic or lumbar spine. Chronic changes as noted. Galo GARCIA CT PROCEDURES CT Thoracic Spine without IV Contrast (07/16/2018 8:04 AM PLANISHER) Anatomical Region Laterality Modality Thoracic Spine, Neuroradiology RST LOS, Neuroradiology N/A Computed Tomography ARZ LOS, Neuroradiology FLA [facility] Specimen (Source) Anatomical Collection Method Collection Time Re ceived Time Location / / Volume Laterality 07/16/2018 9:07 AM PLANISHER Impressions 07/16/2018 9:28 AM PLANISHER IMPRESSION: No definitive acute fractures/injury of the thoracic or lumbar spine. Chronic changes as noted. Narrative 07/16/2018 9:28 AM PLANISHER EXAM: CT THORACIC SPINE WITHOUT IV CONTRAST, CT LUMBAR SPINE WITHOUT IV CONTRAST COMPARISON: None. FINDINGS: Minimal endplate irregularity along the superior endplates of T1 through T3, without fracture line eviden t, possibly chronic but technically age indeterminant. Scoliosis, apex to the left, at the thor acolumbar spine, with associated multilevel spondylotic change, more bryant ed inferiorly, particularly along the facet joints. Associated spinal canal na rrowing appears relatively mild to moderate. Neural foraminal narrowing is most marked on the left at L4-L5 and on the right at L5-S1 where it appears mode rate. Other scattered neural foraminal narrowing is relatively mild. Please see CT of the chest abdomen and p tisha for other findings, including multiple left rib fractures. Otherwise negative. Specifically, no acu te fractures. Normal vertebral body height and alignment, allowing for rm es noted above. Procedure Note Sailaja Ching M.D. - 07/16/2018Form atting of this note might be different from the original. EXAM: CT THORACIC SPINE WITHOUT IV CONTR AST, CT LUMBAR SPINE WITHOUT IV CONTRAST COMPARISON: None. FINDINGS: Minimal endplate irregularity along the superior endplates of T1 through T3, without fracture line eviden t, possibly chronic but technically age indeterminant. Scoliosis, apex to the left, at the thor acolumbar spine, with associated multilevel spondylotic change, more bryant ed inferiorly, particularly along the facet joints. Associated spinal canal na rrowing appears relatively mild to moderate. Neural foraminal narrowing is most marked on the left at L4-L5 and on the right at L5-S1 where it appears mode rate. Other scattered neural foraminal narrowing is relatively mild. Please see CT of the chest abdomen and p tisha for other findings, including multiple left rib fractures. Otherwise negative. Specifically, no acu te fractures. Normal vertebral body height and alignment, allowing for rm es noted above. IMPRESSION: No definitive acute fracture s/injury of the thoracic or lumbar spine. Chronic changes as noted. Galo Langford M.D. IMG CT PROCEDURES CT Cervical Spine without IV Contrast (07/16/2018 8:04 AM PLANISHER) Anatomical Region Laterality Modality Cervical Spine, Neuroradiology RST LOS, Neuroradiology N/A Computed Tomography ARZ [facility], Neuroradiology FLA [facility] Specimen (Source) Anatomical Collection Method Collection Time Re ceived Time Location / / Volume Laterality 07/16/2018 8:51 AM PLANISHER Impressions 07/16/2018 9:30 AM PLANISHER IMPRESSION: 1. No acute traumatic findings of the ce rvical spine. 2. Scattered moderate-advanced degenerat pat changes of the cervical spine as above. Narrative 07/16/2018 9:30 AM PLANISHER EXAM: CT CERVICAL SPINE WITHOUT IV CONTRAST COMPARISON: Cervical spine radiographs FINDINGS: No acute fracture of the cervi abdoul spine. No prevertebral soft tissue swelling. ETT and OG tube. Small left ap ical pneumothorax. Moderate-advanced degenerative changes o f the cervical spine. Straightening of the normal cervical lordosis. Scattered degenerative disc disease including loss of disc space height, most marked at C5- 6. Bulging disc osteophyte complex C4-5 which slightly effaces the thecal sac. F acet arthropathy with resultant foraminal narrowing, most marked at C5-6 on the left (series 4, image 174). Degenerative vertebral body endplate scl erosis and subchondral cystic change with scattered well corticated osseous l oose bodies, for example about the superior endplate of the C7 vertebral aubrey dy (series 603, image 25). Well-corticated loose body superior to t he dens or os odontoideum. Procedure Note Sailaja Ching M.D. - 07/16/2018Form atting of this note might be different from the original. EXAM: CT CERVICAL SPINE WITHOUT IV CONTR AST COMPARISON: Cervical spine radiographs FINDINGS: No acute fracture of the cervi abdoul spine. No prevertebral soft tissue swelling. ETT and OG tube. Small left ap ical pneumothorax. Moderate-advanced degenerative changes o f the cervical spine. Straightening of the normal cervical lordosis. Scattered degenerative disc disease including loss of disc space height, most marked at C5- 6. Bulging disc osteophyte complex C4-5 which slightly effaces the thecal sac. F acet arthropathy with resultant foraminal narrowing, most marked at C5-6 on the left (series 4, image 174). Degenerative vertebral body endplate scl erosis and subchondral cystic change with scattered well corticated osseous l oose bodies, for example about the superior endplate of the C7 vertebral aubrey dy (series 603, image 25). Well-corticated loose body superior to t he dens or os odontoideum. IMPRESSION: 1. No acute traumatic findings of the ce rvical spine. 2. Scattered moderate-advanced degenerat pat changes of the cervical spine as above. Galo GARCIA CT PROCEDURES CT Head without IV Contrast (07/16/2018 8:04 AM PLANISHER) Anatomical Region Laterality Modality Head, Neuroradiology RST LOS, Neuroradiology ARTwyla JALLOH, N/A Computed [facility] Specimen (Source) Anatomical Collection Method Collection Time Re ceived Time Location / / Volume Laterality 07/16/2018 8:21 AM PLANISHER Impressions 07/16/2018 9:02 AM PLANISHER IMPRESSION: No acute intracranial findings. Narrative 07/16/2018 9:02 AM PLANISHER EXAM: CT HEAD WITHOUT IV CONTRAST COMPARISON: CT head without IV contrast 10/31/2011 FINDINGS: Streak artifact obscures visua lization of the cerebellum and occipital lobes. No acute intracranial hemorrhage. No ext ra-axial fluid collections. No mass effect or midline shift. No hydrocephalu s. No calvarial fractures. ETT. OG tube. Calcification along the falx. Coarse abdoul cification of the pineal gland. Procedure Note Sailaja Ching M.D. - 07/16/2018Form atting of this note might be different from the original. EXAM: CT HEAD WITHOUT IV CONTRAST COMPARISON: CT head without IV contrast 10/31/2011 FINDINGS: Streak artifact obscures visua lization of the cerebellum and occipital lobes. No acute intracranial hemorrhage. No ext ra-axial fluid collections. No mass effect or midline shift. No hydrocephalu s. No calvarial fractures. ETT. OG tube. Calcification along the falx. Coarse abdoul cification of the pineal gland. IMPRESSION: No acute intracranial findin gs. Galo PEREIRA CT PROCEDURES DX Shoulder Left 2+ Views (07/16/2018 6:53 AM PLANISHER) Anatomical Region Laterality Modality Upper Extremity, Shoulder, Musculoskeletal RST LOS, Left Digital Radiography Musculoskeletal ARZ LOS, Muskuloskeletal FLA LOS Specimen (Source) Anatomical Collection Method Collection Time Re ceived Time Location / / Volume Laterality 07/16/2018 7:33 AM PLANISHER Impressions 07/16/2018 7:33 AM PLANISHER IMPRESSION: ??Multiple mildly displaced left rib fractures. The left shoulder is negative for fracture. ET tube. NG tube. Narrative 07/16/2018 7:33 AM PLANISHER EXAM: ??DX SHOULDER LEFT 2+ VIEWS Procedure Note Luan Suarez M.D. - 07/16/2018F ormatting of this note might be different from the original. EXAM: DX SHOULDER LEFT 2+ VIEWS IMPRESSION: Multiple mildly displaced le ft rib fractures. The left shoulder is negative for fracture. ET tube. NG tube. Galo PEREIRA DIAGNOSTIC IMAGING PROCE [facility] Patient Status (07/16/2018 6:04 AM PLANISHER) P athologist Signature FIO2 0.40 0.21=AIR 07/16/2018 [facility] 6:10 AM PLANISHER [facility] Device Vent 07/16/2018 [facility] 6:10 AM [facility] Specimen Anatomical Collection Method Collection Time Receive d Time (Source) Location / / Volume Laterality Blood 07/16/2018 6:04 AM 9 6:10 PLANISHER AM PLANISHER Galo Langford M.D. LAB BLOOD NON ADD-ON Performing Organization Address City/State/ZIP Code Phon e Number [facility] - [address] [place], [place] [address] [facility] (ABNORMAL) Blood Gas with Coox, Arterial (07/16/2018 6:04 AM PLANISHER) Patholo gist Method Time Signature pO2 157 (H) 83 - 108 07/16/2018 [facility] mm Hg 6:13 AM [facility] pCO2 38 32 - 45 07/16/2018 [facility] mm Hg 6:13 AM [facility] pH 7.37 7.35 - 07/16/2018 [facility] 7.45 pH 6:13 AM PLANISHER [facility] Base Excess -3 (L) -2 - 3 07/16/2018 [facility] mmol/L 6:13 AM [facility] HCO3 21 (L) 22 - 26 07/16/2018 [facility] mmol/L 6:13 AM [facility] Hemoglobin, B 15.5 (H) 11.6 - 07/16/2018 [facility] 15.0 g/dL 6:13 AM [facility] O2Hb 97.1 94.0 - 07/16/2018 [facility] 98.0 % 6:13 AM PLANISHER [facility] COHb 1.7 <3.0 % 07/16/2018 [facility] 6:13 AM PLANISHER [facility] MetHb <1.0 <1.5 % 07/16/2018 [facility] 6:13 AM [facility] CtO2 21.4 (H) 18.0 - 07/16/2018 [facility] 21.0 vol 6:13 AM PLANISHER [facility] Arterial Art Line 07/16/2018 [facility] Sample Site 6:13 AM [facility] Comment: Ruslan's test not done. Specimen Anatomical Collection Method Collection Time Receive d Time (Source) Location / / Volume Laterality Blood (Blood, 07/16/2018 6:04 AM 07/16/19 19 6:10 Arterial) PLANISHER AM PLANISHER Galo Langford M.D. LAB BLOOD NON ADD-ON Performing Organization Address City/[facility]/ZIP Code Phon e Number [facility] - [address] [address] [facility] Calcium, Ionized (07/16/2018 6:03 AM PLANISHER) P athologist Signature Calcium, 4.77 4.57 - 07/16/2018 [facility] Ionized, S 5.43 mg/dL 6:49 AM [facility] Comment: ----ADDITIONAL INFORMATION---- This test has been modified from the lisbeth lopez's instructions. Its performance characteri stics were determined by [facility] in a manner co nsistent with CLIA requirements. This test has not bee n cleared or approved by the U.S. Food and Drug Admin istration. pH for Ionized 7.44 7.35 - 7.48 07/16/2018 6:49 AM PLANISHER [facility] Calcium [facility]U S Specimen Anatomical Collection Method Collection Time Receive d Time (Source) Location / / Volume Laterality Blood (Blood, 07/16/2018 6:03 AM 07/16/19 19 6:27 Arterial) PLANISHER AM PLANISHER Galo Langford M.D. LAB BLOOD NON ADD-ON Performing Organization Address City/[facility]/ZIP Code Phon e Number [facility] - [address] [address] [facility] Phosphorus Inorganic (07/16/2018 6:03 AM PLANISHER) Analysis Performed At Patho logist Time Signature Phosphorus 3.1 2.5 - 4.5 07/16/2018 [facility] (Inorganic), S mg/dL 6:59 AM [facility] Specimen Anatomical Collection Method Collection Time Receive d Time (Source) Location / / Volume Laterality Blood (Blood, 07/16/2018 6:03 AM 07/16/19 19 6:27 Arterial) PLANISHER AM PLANISHER Galo Langford M.D. LAB BLOOD ADD-ON Performing Organization Address City/[facility]/ZIP Code Phon e Number [facility] - [address] [place], [place] [address] [facility] (ABNORMAL) Magnesium (07/16/2018 6:03 AM PLANISHER) Analysis Performed At Patho logist Time Signature Magnesium, S 1.4 (L) 1.7 - 2.3 07/16/2018 [facility] mg/dL 6:59 AM PLANISHER LABORATORIES - [facility] Specimen Anatomical Collection Method Collection Time Receive d Time (Source) Location / / Volume Laterality Blood (Blood, 07/16/2018 6:03 AM 07/16/19 19 6:27 Arterial) PLANISHER AM PLANISHER Galo Langford M.D. LAB BLOOD ADD-ON Performing Organization Address City/State/ZIP Code Phon e Number [facility] - [address] [place], [place] [address] [facility] (ABNORMAL) BMP (Basic Metabolic Panel) (07/16/2018 6:03 AM PLANISHER) Patholo gist Method Time Signature Potassium, S 3.9 3.6 - 5.2 07/16/2018 [facility] mmol/L 6:59 AM PL[facility]ER LABORATORIES - [facility] Sodium, S 141 135 - 145 07/16/2018 [facility] mmol/L 6:59 AM [facility] LAB[facility]ATORIES - [facility] Chloride, S 109 (H) 98 - 107 07/16/2018 [facility] mmol/L 6:59 AM [facility]ER LAB[facility]ATORIES - [facility] Bicarbonate, S 21 (L) 22 - 29 07/16/2018 [facility] mmol/L 6:59 AM [facility] LAB[facility]ATORIES - [facility] Anion Gap 11 7 - 15 07/16/2018 [facility] 6:59 AM [facility]ER LAB[facility]IES - [facility] BUN (Blood 13 6 - 21 07/16/2018 [facility] Urea mg/dL 6:59 AM PLANISHER LABORATORIES - Nitrogen), S [facility] Creatinine, S 0.70 0.59 - 07/16/2018 [facility] 1.04 mg/dL 6:59 AM [facility]ER LABORATORIES - [facility] eGFR-Non 89 >=60 07/16/2018 [facility] Black/ mL/min/BSA 6:59 AM PLANISHER LABORATORIES - [facility] Comment: ----ADDITIONAL INFORMATION---- Estimated GFR calculated using the 2009 CKD_EPI creatinine equation. eGFR-Black/ >90 >=60 mL/min/BSA 07/16/2018 6:59 [facility] Vietnamese AM [facility] Comment: ----ADDITIONAL INFORMATION---- Estimated GFR calculated using the 2009 CKD_EPI creatinine equation. Calcium, Total, S 8.1 (L) 8.8 - 10.2 07/16/2018 6:59 AM [facility] mg/dL [facility] Glucose, S 144 (H) 70 - 140 mg/dL 07/16/2018 6:59 AM [facility] Specimen Anatomical Collection Method Collection Time Receive d Time (Source) Location / / Volume Laterality Blood (Blood, 07/16/2018 6:03 AM 07/16/19 6:27 Arterial) PLANISHER AM PLANISHER Galo Langford M.D. LAB BLOOD ADD-ON Performing Organization Address City/State/ZIP Code Phon e Number [facility] [facility] - [address] [address] [facility] (ABNORMAL) CBC without Differential (07/16/2018 6:03 AM PLANISHER) [facility] gist Method Time Signature Hemoglobin 15.3 (H) 11.6 - 07/16/2018 [facility] 15.0 g/dL 6:34 AM [facility] Hematocrit 44.1 35.5 - 07/16/2018 [facility] 44.9 % 6:34 AM [facility] Erythrocytes 5.17 (H) 3.92 - 07/16/2018 [facility] 5.13 6:34 AM [facility] - x10(12)/L [facility] MCV 85.3 78.2 - 07/16/2018 [facility] 97.9 fL 6:34 AM [facility] RBC Distrib 15.9 12.2 - 07/16/2018 [facility] Width 16.1 % 6:34 AM [facility] Platelet Count 121 (L) 157 - 371 07/16/2018 [facility] x10(9)/L 6:34 AM [facility] Leukocytes 8.3 3.4 - 9.6 07/16/2018 [facility] x10(9)/L 6:34 AM [facility] Specimen Anatomical Collection Method Collection Time Receive d Time (Source) Location / / Volume Laterality Blood (Blood, 07/16/2018 6:03 AM 07/16/19 19 6:27 Arterial) PLANISHER AM PLANISHER Galo Langford M.D. LAB BLOOD ADD-ON Performing Organization Address City/State/ZIP Code Phon e Number [facility] - [address] [place], [place] [address] [facility] DX Chest Portable 1 View (07/16/2018 5:22 AM PLANISHER) Anatomical Region Laterality Modality Chest, Thoracic RST LOS, Thoracic ARZ LOS, Thoracic N/A Digital Radiography FLA LOS Specimen (Source) Anatomical Collection Method Collection Time Re ceived Time Location / / Volume Laterality 07/16/2018 5:24 AM PLANISHER Impressions 07/16/2018 5:26 AM PLANISHER IMPRESSION: ??No significant change since yesterday. ET tube in good position. NG tube with the tip below the diaphragm. L eft upper quadrant surgical drain. Left basilar atelectasis. Tiny left pleural e ffusion. Narrative 07/16/2018 5:26 AM PLANISHER EXAM: ??DX CHEST PORTABLE 1 VIEW Procedure Note Luan Suarez M.D. - 07/16/2018F ormatting of this note might be different from the original. EXAM: DX CHEST PORTABLE 1 VIEW IMPRESSION: No significant change since yesterday. ET tube in good position. NG tube with the tip below the diaphragm. L eft upper quadrant surgical drain. Left basilar atelectasis. Tiny left pleural e ffusion. Galo Langford M.D. IMG DIAGNOSTIC IMAGING PROCE DURES (ABNORMAL) Glucose, POCT (07/16/2018 4:26 AM PLANISHER) athologist Signature Glucose, POCT, 153 (H) 70 - 140 07/16/2018 [facility] B mg/dL 4:27 AM PLANISHER SERVICES Site ARTLINE 07/16/2018 [facility] 4:27 AM PLANISHER SERVICES Specimen Anatomical Collection Method Collection Time Receive d Time (Source) Location / / Volume Laterality Blood 07/16/2018 4:26 AM 9 4:27 PLANISHER AM PLANISHER Unknown Provider LAB POCT ORDERABLES-MANUAL Performing Organization Address City/[facility]/ZIP Code Phon e Number POC [facility] [address] [place] [address] Glucose, POCT (07/16/2018 4:26 AM PLANISHER) Analysis Performed At Patho logist Time Signature Glucose, Collected DEFAULT 07/16/2018 [facility] POCT, B 4:26 AM PLANISHER LAB[facility]ATORIES - [facility] Specimen Anatomical Collection Method Collection Time Receive d Time (Source) Location / / Volume Laterality Blood (Blood, 07/16/2018 4:26 AM 07/16/19 19 4:26 Capillary) PLANISHER AM PLANISHER Galo Langford M.D. LAB POCT ORDERABLES-MANUAL Performing Organization Address City/[facility]/ZIP Code Phon e Number [facility] - [address] [place], [place] [address] [facility] (ABNORMAL) Glucose, POCT (07/16/2018 12:57 AM PLANISHER) P athologist Signature Glucose, POCT, 159 (H) 70 - 140 07/16/2018 [facility] B mg/dL 12:58 AM PLANISHER SERVICES Site ARTLINE 07/16/2018 [facility] 12:58 AM PLANISHER SERVICES Specimen Anatomical Collection Method Collection Time Receive d Time (Source) Location / / Volume Laterality Blood 07/16/2018 12:57 07/16/2018 AM PLANISHER 12:58 AM PLANISHER Unknown Provider LAB POCT ORDERABLES-MANUAL Performing Organization Address City/[facility]/ZIP Code Phon e Number POC [facility] [address] [place] [address] Glucose, POCT (07/16/2018 12:57 AM PLANISHER) Analysis Performed At Patho logist Time Signature Glucose, Collected DEFAULT 07/16/2018 [facility] POCT, B 12:57 AM PLANISHER LABORATORIES - [facility] Specimen Anatomical Collection Method Collection Time Receive d Time (Source) Location / / Volume Laterality Blood (Blood, 07/16/2018 12:57 07/16/2018 Capillary) AM PLANISHER 12:57 AM PLANISHER Tomás Mohamud M.D. LAB POCT ORDERABLES-MANUAL Performing Organization Address City/[facility]/ZIP Code Phon e Number [facility] - [address] [place], [place] [address] [facility] DX Abdomen Portable Anterior Posterior 1 View (07/16/2018 12:26 AM PLANISHER) Anatomical Region Laterality Modality Abdomen, Abdominal RST LOS, Abdominal ARZ LOS, N/A Digital Radiography Abdominal FLA LOS Specimen (Source) Anatomical Collection Method Collection Time Re ceived Time Location / / Volume Laterality 07/16/2018 12:30 AM PLANISHER Impressions 07/16/2018 8:34 AM PLANISHER IMPRESSION: ??Since 07/15/2018, interval advancement of the enteric tube with tip and side-port below the diaphragm. Win rison with CT on 07/15/2018 shows that the stomach descends vertically accounting f or the straight course of the enteric tube. Unchanged surgical drain in the le ft upper quadrant. Contrast within the renal collecting systems. I have personally reviewed the images an d agree with this interpretation. Narrative 07/16/2018 8:34 AM PLANISHER EXAM: ??DX ABDOMEN PORTABLE ANTERIOR POSTERIOR 1 VIEW Procedure Note Luan Suarez M.D. - 07/16/2018F ormatting of this note might be different from the original. EXAM: DX ABDOMEN PORTABLE ANTERIOR POSTE RIOR 1 VIEW IMPRESSION: Since 07/15/2018, interval adv ancement of the enteric tube with tip and side-port below the diaphragm. Win rison with CT on 07/15/2018 shows that the stomach descends vertically accounting f or the straight course of the enteric tube. Unchanged surgical drain in the le ft upper quadrant. Contrast within the renal collecting systems. I have personally reviewed the images an d agree with this interpretation. Eufemia Mcmanus M.D., M.S. [facility] DIAGNOSTIC IMAGING PROC EDURES (ABNORMAL) CBC without Differential (07/16/2018 12:13 AM PLANISHER) [facility] Method Time Signature Hemoglobin 15.2 (H) 11.6 - 07/16/2018 [facility] 15.0 g/dL 12:22 AM PLANISHER LABORATORIES [facility] Hematocrit 44.4 35.5 - 07/16/2018 [facility] 44.9 % 12:22 AM PLANISHER LABORATORIES [facility] Erythrocytes 5.24 (H) 3.92 - 07/16/2018 [facility] 5.13 12:22 AM PLANISHER LABORATORIES - x10(12)/L [facility] MCV 84.7 78.2 - 07/16/2018 [facility] 97.9 fL 12:22 AM PLANISHER [facility] RBC Distrib 15.0 12.2 - 07/16/2018 [facility] Width 16.1 % 12:22 AM PLANISHER LABORATORIES [facility] Platelet Count 118 (L) 157 - 371 07/16/2018 [facility] x10(9)/L 12:22 AM PLANISHER LABORATORIES - [facility] Leukocytes 10.2 (H) 3.4 - 9.6 07/16/2018 [facility] x10(9)/L 12:22 AM PLANISHER LABORATORIES - [facility] Specimen Anatomical Collection Method Collection Time Receive d Time (Source) Location / / Volume Laterality Blood (Blood, 07/16/2018 12:13 07/16/2018 Arterial) AM PLANISHER 12:19 AM PLANISHER Galo Langford M.D. LAB BLOOD ADD-ON Performing Organization Address City/State/ZIP Code Phon e Number [facility] - [address] [place], [place] [address] [facility] (ABNORMAL) Blood Gas and Electrolytes CG8+, Point of Care, [facility], Vascular Access Pearl Technician (07/15/2018 11:00 PM PLANISHER) P athologist Signature Sample Site, Artline 07/15/2018 [facility] POCT 11:07 PM PLANISHER SERVICES Comment: ----ADDITIONAL INFORMATION---- Performed at the Point of Care pH, POCT 7.39 7.35 - 7.45 07/15/2018 11:07 PM PLANISHER [facility] SERVICES Comment: ----ADDITIONAL INFORMATION---- Performed at the Point of Care pCO2, POCT 37 32 - 45 mm Hg 07/15/2018 11:07 PM PLANISHER P OC [facility] Comment: ----ADDITIONAL INFORMATION---- Performed at the Point of Care pO2, POCT 174 (H) 83 - 108 mm Hg 07/15/2018 11:07 PM PLANISHER P OC [facility] Comment: ----ADDITIONAL INFORMATION---- Performed at the Point of Care Base, POCT -2 -2 - 3 mmol/L 07/15/2018 11:07 PM PLANISHER P OC [facility] Comment: ----ADDITIONAL INFORMATION---- Performed at the Point of Care HCO3, POCT 23 22 - 26 mmol/L 07/15/2018 11:07 PM PLANISHER POC [facility] Comment: ----ADDITIONAL INFORMATION---- Performed at the Point of Care Sodium, POCT, B 142 135 - 145 mmol/L 07/15/2018 11: 07 PM PLANISHER POC [facility] Comment: ----ADDITIONAL INFORMATION---- Performed at the Point of Care Potassium, POCT, B 3.6 3.6 - 5.2 mmol/L 07/15/2018 11: 07 PM [facility] PLANISHER SERVICES Comment: ----ADDITIONAL INFORMATION---- Performed at the Point of Care Calcium, Ionized, 4.70 4.65 - 5.30 07/15/2018 11:07 PM [facility] POCT, B mg/dL PLANISHER SERVICES Comment: ----ADDITIONAL INFORMATION---- Performed at the Point of Care pH POCT 7.39 7.35 - 7.45 07/15/2018 11:07 PM PLANISHER POC [facility] Comment: ----ADDITIONAL INFORMATION---- Performed at the Point of Care Glucose, POCT, B 168 (H) 70 - 140 mg/dL 07/15/2018 11:07 P M POC [facility] LAB PLANISHER SERVICES Comment: ----ADDITIONAL INFORMATION---- Performed at the Point of Care Hematocrit, POCT, B 43.0 35.5 - 44.9 % 07/15/2018 11 :07 PM POC [facility] LAB SERVICES PLANISHER Comment: ----ADDITIONAL INFORMATION---- Performed at the Point of Care Specimen Anatomical Collection Method Collection Time Receive d Time (Source) Location / / Volume Laterality Blood 07/15/2018 11:00 07/15/2018 PM PLANISHER 11:08 PM PLANISHER Unknown Provider LAB POCT ORDERABLES - DEVICE Performing Organization Address City/[facility]/ZIP [facility] [place] [place] Phon e Number POC [facility] [address] [place] [address] Patient Status (07/15/2018 10:59 PM PLANISHER) P athologist Signature FIO2 0.40 0.21=AIR 07/15/2018 [facility] 11:02 PM PLANISHER LAB[facility]ATORIES - [facility] Device VENT 07/15/2018 [facility] 11:02 PM PLANISHER LABORATORIES - [facility] Specimen Anatomical Collection Method Collection Time Receive d Time (Source) Location / / Volume Laterality Blood 07/15/2018 10:59 07/15/2018 PM PLANISHER 11:02 PM PLANISHER Galo Langford M.D. LAB BLOOD NON ADD-ON Performing Organization Address City/[facility]/ZIP Code Phon e Number [facility] - [address] [address] [facility] Blood Gas, Arterial, POCT (07/15/2018 10:59 PM PLANISHER) Analysis Performed At Patho logist Time Signature ABG and Collected DEFAULT 07/15/2018 [facility] Lytes, POCT, 10:59 PM PLANISHER LABORATORIES - B [facility] Specimen Anatomical Collection Method Collection Time Receive d Time (Source) Location / / Volume Laterality Blood (Other, 07/15/2018 10:59 07/15/2018 Specify in PM PLANISHER 10:59 PM PLANISHER Comments) Galo Langford M.D. LAB POCT ORDERABLES - DEVICE Performing Organization Address City/[facility]/ZIP Code Phon e Number [facility] - [address] [address] [facility] (ABNORMAL) Blood Gas without Coox, Arterial (07/15/2018 10:59 PM PLANISHER) [facility] ThromboVision Method Time Signature pO2 177 (H) 83 - 108 07/15/2018 [facility] mm Hg 11:08 PM PLANISHER LABORATORIES - [facility] pCO2 34 32 - 45 07/15/2018 [facility] mm Hg 11:08 PM PLANISHER LABORATORIES - [facility] pH 7.40 7.35 - 07/15/2018 [facility] 7.45 pH 11:08 PM PLANISHER LABORATORIES - [facility] Base Excess -3 (L) -2 - 3 07/15/2018 [facility] mmol/L 11:08 PM PLANISHER LABORATORIES - [facility] HCO3 21 (L) 22 - 26 07/15/2018 [facility] mmol/L 11:08 PM [facility]ER LAB[facility]ATORIES - [facility] Arterial Art Line 07/15/2018 [facility] Sample Site 11:08 PM PLANISHER LABORATORIES - [facility] Specimen Anatomical Collection Method Collection Time Receive d Time (Source) Location / / Volume Laterality Blood (Blood, 07/15/2018 10:59 07/15/2018 Arterial) PM PLANISHER 11:02 PM PLANISHER Galo Langford M.D. LAB BLOOD NON ADD-ON Performing Organization Address City/State/ZIP Code Phon e Number [facility] - [address] [address] [facility] (ABNORMAL) BMP (Basic Metabolic Panel) (07/15/2018 10:58 PM PLANISHER) [facility] ThromboVision Method Time Signature Potassium, P 3.7 3.6 - 5.2 07/15/2018 [facility] mmol/L 11:20 PM [facility] Sodium, P 141 135 - 145 07/15/2018 [facility] mmol/L 11:20 PM [facility] Chloride, P 108 (H) 98 - 107 07/15/2018 [facility] mmol/L 11:20 PM [facility] Bicarbonate, P 21 (L) 22 - 29 07/15/2018 [facility] mmol/L 11:20 PM [facility] Anion Gap, P 12 7 - 15 07/15/2018 [facility] 11:20 PM [facility] BUN (Blood 13 6 - 21 07/15/2018 [facility] Urea mg/dL 11:20 PM [facility] - Nitrogen), P [facility] Creatinine, P 0.62 0.59 - 07/15/2018 [facility] 1.04 mg/dL 11:20 PM [facility] eGFR-Black/Afr >90 >=60 07/15/2018 [facility] ican Vietnamese mL/min/BSA 11:20 PM [facility] Comment: ----ADDITIONAL INFORMATION---- Estimated GFR calculated using the 2009 CKD_EPI creatinine equation. eGFR Non-Black/ >90 >=60 mL/min/BSA 07/15/2018 11:20 [facility] Vietnamese [facility] Comment: ----ADDITIONAL INFORMATION---- Estimated GFR calculated using the 2009 CKD_EPI creatinine equation. Calcium, Total, P 8.4 (L) 8.8 - 10.2 07/15/2018 11:20 PM [facility] mg/dL [facility] Glucose, P 182 (H) 70 - 140 mg/dL 07/15/2018 11:20 PM [facility] Specimen Anatomical Collection Method Collection Time Receive d Time (Source) Location / / Volume Laterality Blood (Blood, 07/15/2018 10:58 07/15/2018 Arterial) PM PLANISHER 11:02 PM PLANISHER Galo Langford M.D. LAB BLOOD ADD-ON Performing Organization Address City/State/ZIP Code Phon e Number [facility] - [address] [place], [place] [address] [facility] (ABNORMAL) CBC without Differential (07/15/2018 10:58 PM PLANISHER) [facility] Method Time Signature Hemoglobin 15.4 (H) 11.6 - 07/15/2018 [facility] 15.0 g/dL 11:05 PM PLANISHER [facility] Hematocrit 45.4 (H) 35.5 - 07/15/2018 [facility] 44.9 % 11:05 PM PLANISHER [facility] Erythrocytes 5.24 (H) 3.92 - 07/15/2018 [facility] 5.13 11:05 PM PLANISHER LABORATORIES - x10(12)/L [facility] MCV 86.6 78.2 - 07/15/2018 [facility] 97.9 fL 11:05 PM PLANISHER [facility] RBC Distrib 14.9 12.2 - 07/15/2018 [facility] Width 16.1 % 11:05 PM [facility] Platelet Count 125 (L) 157 - 371 07/15/2018 [facility] x10(9)/L 11:05 PM PLANISHER [facility] Leukocytes 8.9 3.4 - 9.6 07/15/2018 [facility] x10(9)/L 11:05 PM [facility] Specimen Anatomical Collection Method Collection Time Receive d Time (Source) Location / / Volume Laterality Blood (Blood, 07/15/2018 10:58 07/15/2018 Arterial) PM PLANISHER 11:02 PM PLANISHER Galo Langford M.D. LAB BLOOD ADD-ON Performing Organization Address City/State/ZIP Code Phon e Number [facility] - [address] [address] [facility] Thromboelastograph, Faith (07/15/2018 10:56 PM PLANISHER) [facility] Method Time Signature R Time 4.4 4.0 - 9.0 07/16/2018 [facility] min 12:08 AM PLANISHER [facility] K Time 1.5 0.9 - 1.7 07/16/2018 [facility] min 12:08 AM PLANISHER [facility] R + K 5.9 4.9 - 10.8 07/16/2018 [facility] min 12:08 AM PLANISHER [facility] Angle 67.6 66.2 - 80.3 07/16/2018 [facility] degrees 12:08 AM PLANISHER [facility] Maximum 60.0 55.2 - 77.0 07/16/2018 [facility] Amplitude mm 12:08 AM PLANISHER LABORATORIES [facility] Ly30 0.2 0.0 - 4.8 % 07/16/2018 [facility] 12:08 AM PL[facility]ISHER LABORATORIES [facility] Specimen Anatomical Collection Method Collection Time Receive d Time (Source) Location / / Volume Laterality Blood (Blood, 07/15/2018 10:56 07/15/2018 Arterial) PM PLANISHER 11:01 PM PLANISHER Galo Langford M.D. LAB BLOOD NON ADD-ON Performing Organization Address City/State/ZIP Code Phon e Number [facility] - [address] [place], [place] [address] [facility] DX Abdomen 1 View (07/15/2018 9:58 PM PLANISHER) Anatomical Region Laterality Modality Abdomen, Abdominal RST LOS, Abdominal ARZ LOS, N/A Digital Radiography Abdominal FLA LOS Specimen (Source) Anatomical Collection Method Collection Time Re ceived Time Location / / Volume Laterality 07/15/2018 10:12 PM PLANISHER Impressions 07/16/2018 7:48 AM PLANISHER IMPRESSION: ??No comparison. Enteric tube with tip just beyond the GE junction and the side port approximately 4 cm abo ve the GE junction. This should ideally be advanced at least 15 cm before use. L eft upper quadrant surgical drain. Contrast within the bilateral renal arben ecting systems. Nonobstructive bowel gas pattern. Left SHERRY. Bladder temperature p robe. Thoracolumbar curve. I have personally reviewed the images an d agree with this interpretation. Narrative 07/16/2018 7:48 AM PLANISHER EXAM: ??DX ABDOMEN 1 VIEW Procedure Note Luan Suarez M.D. - 07/16/2018F ormatting of this note might be different from the original. EXAM: DX ABDOMEN 1 VIEW IMPRESSION: No comparison. Enteric tube with tip just beyond the GE junction and the side port approximately 4 cm abo ve the GE junction. This should ideally be advanced at least 15 cm before use. L eft upper quadrant surgical drain. Contrast within the bilateral renal arben ecting systems. Nonobstructive bowel gas pattern. Left SHERRY. Bladder temperature p robe. Thoracolumbar curve. I have personally reviewed the images an d agree with this interpretation. Lourdes Brown M.D. IMG DIAGNOSTIC IMAGING PROCE DUR DX Chest Portable 1 View (07/15/2018 9:57 PM PLANISHER) Anatomical Region Laterality Modality Chest, Thoracic RST LOS, Thoracic ARZ LOS, Thoracic N/A Digital Radiography FLA LOS Specimen (Source) Anatomical Collection Method Collection Time Re ceived Time Location / / Volume Laterality 07/15/2018 10:31 PM PLANISHER Impressions 07/16/2018 7:48 AM PLANISHER IMPRESSION: ??Since earlier today at 15:49, interval intubation with ET tube above the elise. Enteric tube with tip just beyond the GE junction. This should be advanced by approximately 15 cm for o ptimal position with side-port in the stomach. Left upper quadrant surgical dr saucedo. Pulmonary vascular congestion with perihilar streaky opacities. Narrative 07/16/2018 7:48 AM PLANISHER EXAM: ??DX CHEST PORTABLE 1 VIEW Procedure Note Luan Suarez M.D. - 07/16/2018F ormatting of this note might be different from the original. EXAM: DX CHEST PORTABLE 1 VIEW IMPRESSION: Since earlier today at 15:49 , interval intubation with ET tube above the elise. Enteric tube with tip just beyond the GE junction. This should be advanced by approximately 15 cm for o ptimal position with side-port in the stomach. Left upper quadrant surgical dr saucedo. Pulmonary vascular congestion with perihilar streaky opacities. Lourdes Brown M.D. IM DIAGNOSTIC IMAGING PROCE PRIYA Patient Status (07/15/2018 8:52 PM PLANISHER) P athologist Signature Temperature 35.9 37.0 deg C 07/15/2018 [facility] 8:52 PM [facility] LAB[facility] - [facility] FIO2 0.50 0.21=AIR 07/15/2018 [facility] 8:52 PM [facility]ER LAB[facility] - [facility] Specimen Anatomical Collection Method Collection Time Receive d Time (Source) Location / / Volume Laterality Blood 07/15/2018 8:52 PM 9 8:52 PLANISHER PM PLANISHER Romario Rodriguez GEOLOGICAL DRAFTER, MEDICAL TECHNOLOGIST CLINICAL LAB BLOOD NON ADD-ON Performing Organization Address City/State/ZIP Code Phon e Number [facility] - [address] [place], [place] [address] [facility] (ABNORMAL) Glucose, Whole Blood (07/15/2018 8:52 PM PLANISHER) athologist Signature Glucose 189 (H) 70 - 140 07/15/2018 [facility] mg/dL 8:54 PM PLANISHER [facility] Specimen Anatomical Collection Method Collection Time Receive d Time (Source) Location / / Volume Laterality Blood (Blood, 07/15/2018 8:52 PM 07/15/19 8:52 Arterial Line) PLANISHER PM PLANISHER Resulting Agency Comment Drawn in OR Shara Santiago M.D. LAB BLOOD TROPONIN Performing Organization Address City/[facility]/ZIP Code Phon e Number [facility] - [address] [address] [facility] Potassium, Blood (07/15/2018 8:52 PM PLANISHER) athologist Signature Potassium, B 3.8 3.6 - 5.2 07/15/2018 [facility] mmol/L 8:54 PM PLANISHER [facility] Specimen Anatomical Collection Method Collection Time Receive d Time (Source) Location / / Volume Laterality Blood (Blood, 07/15/2018 8:52 PM 07/15/19 8:52 Arterial Line) PLANISHER PM PLANISHER Resulting Agency Comment Drawn in OR Shara Santiago M.D. LAB BLOOD NON ADD-ON Performing Organization Address City/State/ZIP Code Phon e Number [facility] - [address] [address] [facility] Sodium, B (07/15/2018 8:52 PM PLANISHER) athologist Signature Sodium, B 140 135 - 145 07/15/2018 [facility] mmol/L 8:54 PM PLANISHER [facility] Specimen Anatomical Collection Method Collection Time Receive d Time (Source) Location / / Volume Laterality Blood (Blood, 07/15/2018 8:52 PM 07/15/19 8:52 Arterial Line) PLANISHER PM PLANISHER Resulting Agency Comment Drawn in OR Shara Santiago M.D. LAB BLOOD NON ADD-ON Performing Organization Address City/[facility]/ZIP Code Phon e Number [facility] - [address] [address] [facility] (ABNORMAL) Calcium, Ionized (07/15/2018 8:52 PM PLANISHER) [facility] ThromboVision Method Time Signature Calcium, 4.60 (L) 4.65 - 07/15/2018 [facility] Ionized, B 5.30 8:54 PM PLANISHER LABORATORIES - mg/dL [facility] Specimen Anatomical Collection Method Collection Time Receive d Time (Source) Location / / Volume Laterality Blood (Blood, 07/15/2018 8:52 PM 07/15/19 19 8:52 Arterial Line) PLANISHER PM PLANISHER Resulting Agency Comment Drawn in OR Shara Santiago M.D. LAB BLOOD NON ADD-ON Performing Organization Address City/State/ZIP Code Phon e Number [facility] - [address] [place], [place] [address] [facility] (ABNORMAL) Blood Gas with Coox, Arterial (07/15/2018 8:52 PM PLANISHER) [facility] ThromboVision Method Time Signature pO2 208 (H) 83 - 108 07/15/2018 [facility] mm Hg 8:54 PM [facility]ER LAB[facility]ATORIES - [facility] pCO2 34 32 - 45 07/15/2018 [facility] mm Hg 8:54 PM [facility] LAB[facility] - [facility] pH 7.41 7.35 - 07/15/2018 [facility] 7.45 pH 8:54 PM [facility] LAB[facility] - [facility] Base Excess -3 (L) -2 - 3 07/15/2018 [facility] mmol/L 8:54 PM [facility] LAB[facility]ATOR[facility] - [facility] HCO3 22 22 - 26 07/15/2018 [facility] mmol/L 8:54 PM PLANISHER LAB[facility]ATORIES - [facility] Hemoglobin, B 15.6 (H) 11.6 - 07/15/2018 [facility] 15.0 g/dL 8:54 PM PLANISHER LABORATORIES - [facility] O2Hb 98.0 94.0 - 07/15/2018 [facility] 98.0 % 8:54 PM [facility]ER LAB[facility]IES - [facility] COHb 1.6 <3.0 % 07/15/2018 [facility] 8:54 PM [facility]ER [facility] - [facility] MetHb <1.0 <1.5 % 07/15/2018 [facility] 8:54 PM [facility] - [facility] CtO2 21.9 (H) 18.0 - 07/15/2018 [facility] 21.0 vol 8:54 PM PLAN[facility]ER LABORATORIES - % [facility] Specimen Anatomical Collection Method Collection Time Receive d Time (Source) Location / / Volume Laterality Blood (Blood, 07/15/2018 8:52 PM 07/15/19 19 8:52 Arterial Line) PLANISHER PM PLANISHER Resulting Agency Comment Drawn in [place] Shara Santiago M.D. LAB BLOOD NON ADD-ON Performing Organization Address City/State/ZIP Code Phon e Number [facility]ATORIES - [address] [place], [place] [address] [facility] Critical Care (07/15/2018 8:39 PM PLANISHER) Narrative Rashi De Luna Jr., M.D. - 07/15/19 19 8:39 PM PLANISHER Rashi De Luna Jr., M.D. ? 07/15/2018 ??8:40 PM Critical Care Performed by: RASHI DE LUNA JR. Authorized by: RASHI DE LUNA JR. Critical care provider statement: ??Critical care total time (minutes): ? ?35 ??Critical care time was exclusive of: ??Separately billable procedures and treating other patients and teaching liam e ??CPR was performed on this patient: no ?Critical care was necessary to treat or prevent imminent or life-threatening deterioration of the fo llowing conditions: ??Cardiac arrhythmia, circulatory failure, shock, trauma and cardiac failure ??Critical care was time spent personal ly by me on the following activities: ??Blood draw for specimens, development of treatment plan with patient or surrogate, discussions with c onsultants, evaluation of patient's response to treatment, examina tion of patient, obtaining history from patient or surrogate, vascular acce ss procedures, review of old charts, re-evaluation of patient's condi tion, pulse oximetry, ordering and review of radiographic studies, ordering and review of laboratory studies and ordering and performing treatments a nd interventions ??I assumed direction of critical care for this patient from another provider in my specialty: no ?? Rashi De Luna Jr., M.D. PROCEDURE/MINOR SURGICAL ORDERABLES (ABNORMAL) Platelet Count - Intra-Op (07/15/2018 8:07 PM PLANISHER) [facility] Method Time Signature Platelet Count 117 (L) 157 - 371 07/15/2018 [facility] x10(9)/L 8:12 PM PLANISHER [facility] Specimen Anatomical Collection Method Collection Time Receive d Time (Source) Location / / Volume Laterality Blood (Blood, 07/15/2018 8:07 PM 07/15/19 19 8:07 Arterial Line) PLANISHER PM PLANISHER Resulting Agency Comment Drawn in [place] Tomás Mohamud M.D. LAB BLOOD ADD-ON Performing Organization Address City/[facility]/ZIP [facility] [place], [place] Phon e Number [facility] - [address] [phone] [facility] Patient Status (07/15/2018 8:02 PM PLANISHER) athologist Signature FIO2 0.48 0.21=AIR 07/15/2018 [facility] 8:02 PM PLANISHER [facility] Specimen Anatomical Collection Method Collection Time Receive d Time (Source) Location / / Volume Laterality Blood 07/15/2018 8:02 PM 9 8:02 PLANISHER PM PLANISHER Resulting Agency Comment Drawn in [place] Isa Ta APRN, MEDICAL TECHNOLOGIST CLINICAL, D.N.P. LAB BLOOD NON AD D-ON Performing Organization Address City/[facility] Code Phon e Number [facility] - [address] [phone] [facility] (ABNORMAL) Lactate, Whole Blood - Intra-op (07/15/2018 8:02 PM PLANISHER) athologist Signature Lactate, B 2.7 (H) 0.5 - 2.2 07/15/2018 [facility] mmol/L 8:04 PM [facility] Specimen Anatomical Collection Method Collection Time Receive d Time (Source) Location / / Volume Laterality Blood (Blood, 07/15/2018 8:02 PM 07/15/19 19 8:02 Arterial Line) PLANISHER PM PLANISHER Resulting Agency Comment Drawn in [place] Tomás Mohamud M.D. LAB BLOOD NON ADD-ON Performing Organization Address City/[facility]/ZIP [facility] [place], [place] Phon e Number [facility] - [address] [phone] [facility] (ABNORMAL) Glucose, Whole Blood (07/15/2018 8:02 PM PLANISHER) athologist Signature Glucose 208 (H) 70 - 140 07/15/2018 [facility] mg/dL 8:04 PM PLANISHER [facility] Specimen Anatomical Collection Method Collection Time Receive d Time (Source) Location / / Volume Laterality Blood (Blood, 07/15/2018 8:02 PM 07/15/19 19 8:02 Arterial Line) PLANISHER PM PLANISHER Resulting Agency Comment Drawn in [place] Tomás Mohamud M.D. LAB BLOOD TROPONIN Performing Organization Address City/[facility]/ZIP Code Phon e Number [facility]IES - [address] [phone] [facility] Potassium, Blood (07/15/2018 8:02 PM PLANISHER) athologist Signature Potassium, B 4.7 3.6 - 5.2 07/15/2018 [facility] mmol/L 8:04 PM [facility]ER LABORATORIES [facility] Specimen Anatomical Collection Method Collection Time Receive d Time (Source) Location / / Volume Laterality Blood (Blood, 07/15/2018 8:02 PM 07/15/19 19 8:02 Arterial Line) PLANISHER PM PLANISHER Resulting Agency Comment Drawn in [place] Tomás Mohamud M.D. LAB BLOOD NON ADD-ON Performing Organization Address City/[facility]/ZIP Code Phon e Number [facility]IES - [address] [phone] [facility] Sodium, B (07/15/2018 8:02 PM PLANISHER) athologist Signature Sodium, B 139 135 - 145 07/15/2018 [facility] mmol/L 8:04 PM PLANISHER [facility] Specimen Anatomical Collection Method Collection Time Receive d Time (Source) Location / / Volume Laterality Blood (Blood, 07/15/2018 8:02 PM 07/15/19 19 8:02 Arterial Line) PLANISHER PM PLANISHER Resulting Agency Comment Drawn in [place] Tomás Mohamud M.D. LAB BLOOD NON ADD-ON Performing Organization Address City/State/ZIP Code Phon e Number [facility]IES - [address] [phone] [facility] Calcium, Ionized (07/15/2018 8:02 PM PLANISHER) athologist Signature Calcium, 4.78 4.65 - 07/15/2018 [facility] Ionized, B 5.30 mg/dL 8:04 PM [facility]ER LABORATORIES [facility] Specimen Anatomical Collection Method Collection Time Receive d Time (Source) Location / / Volume Laterality Blood (Blood, 07/15/2018 8:02 PM 07/15/19 19 8:02 Arterial Line) PLANISHER PM PLANISHER Resulting Agency Comment Drawn in [place] Tomás Mohamud M.D. LAB BLOOD NON ADD-ON Performing Organization Address City/State/[facility] Code Phon e Number [facility]IES - [address] (ABNORMAL) Blood Gas with Coox, Arterial (07/15/2018 8:02 PM PLANISHER) [facility] Method Time Signature pO2 234 (H) 83 - 108 07/15/2018 [facility] mm Hg 8:04 PM [facility]ER LABORATORIES [facility] pCO2 31 (L) 32 - 45 07/15/2018 [facility] mm Hg 8:04 PM [facility] LABORATORIES [facility] pH 7.47 (H) 7.35 - 07/15/2018 [facility] 7.45 pH 8:04 PM [facility]ER LABORATORIES [facility] Base Excess -1 -2 - 3 07/15/2018 [facility] mmol/L 8:04 PM [facility] LAB[facility]ATORIES [facility] HCO3 23 22 - 26 07/15/2018 [facility] mmol/L 8:04 PM [facility] LAB[facility]ATORIES [facility] Hemoglobin, B 12.8 11.6 - 07/15/2018 [facility] 15.0 g/dL 8:04 PM PLANISHER [facility] O2Hb 97.9 94.0 - 07/15/2018 [facility] 98.0 % 8:04 PM [facility] LABORATORIES [facility] COHb 1.6 <3.0 % 07/15/2018 [facility] 8:04 PM [facility] LAB[facility]ATORIES [facility] MetHb <1.0 <1.5 % 07/15/2018 [facility] 8:04 PM [facility] LABORATORIES [facility] CtO2 18.1 18.0 - 07/15/2018 [facility] 21.0 vol 8:04 PM PLANISHER LABORATORIES - % [facility] Specimen Anatomical Collection Method Collection Time Receive d Time (Source) Location / / Volume Laterality Blood (Blood, 07/15/2018 8:02 PM 07/15/19 19 8:02 Arterial Line) PLANISHER PM PLANISHER Resulting Agency Comment Drawn in [place] Tomás Mohamud M.D. LAB BLOOD NON ADD-ON Performing Organization Address City/[facility] Code Phon e Number [facility]IES - [address] [phone] [facility] Transfuse autologous RBC (Cell Salvage) : (07/15/2018 7:53 PM PLANISHER) Tomás Mohamud M.D. BLOOD TRANSFUSION ORDERABLES Transfuse autologous RBC (Cell Salvage) : (07/15/2018 7:32 PM PLANISHER) Tomás Mohamud M.D. BLOOD TRANSFUSION ORDERABLES Surgical Pathology, Frozen Lab (07/15/2018 7:28 PM PLANISHER) Component Value Ref Test Analysis Performed At [facility] gist Range Method Time Signature Gross Description A. ??Received in formalin labeled spleen is a 2 30 gram, 07/17/2018 [facility] 11.5 x 8.3 x 4.1 cm splenectomy specimen. ??The capsule is 3:06 PM LABORATORIES - disrupted. ??There is a 6.2 x 4.1 x 3.1 cm laceration. [facility] tissue submitted for permanent sections. CAMPUS Grossed by MAP. ??Photographed Participated in Jeannine Orona, 07/17/2018 [facility] Juice, 3:06 PM LABORATORIES - Interpretation B.Ch.-Pathology [facility] Report Antonio Madera M.D. [phone] 07/17/2018 [facility] electronically I verify that I have examined all relevant slides/ma terials 3:06 PM LABORATORIES - signed by for the specimen(s) and rendered or confirmed the diagnosi s. [facility] 07/17/2018 [facility] 3:06 PM LABORATORIES - [facility] Block Summary A Spleen 07/17/2018 [facility] A1 Spleen 3:06 PM LABORATORIES - [facility] Interpretation FINAL DIAGNOSIS 07/17/2018 [facility] HEATHER A. 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 [facility] Specimen (Source) Anatomical Collection Method Collection Time Re ceived Time Location / / Volume Laterality Tissue (Spleen) 07/15/2018 7:28 PM PLANISHER Narrative This result has an attachment that is no t available. Lourdes Brown M.D. LAB SURG PATH ORDERABLES Performing Organization Address City/State/ZIP Code Phon e Number [facility]IES - [address] [place], [place] [address] [facility] Patient Status (07/15/2018 7:24 PM PLANISHER) athologist Signature FIO2 0.50 0.21=AIR 07/15/2018 [facility] 7:24 PM PLANISHER LABORATORIES [facility] Specimen Anatomical Collection Method Collection Time Receive d Time (Source) Location / / Volume Laterality Blood 07/15/2018 7:24 PM 9 7:24 PLANISHER PM PLANISHER Jazmine Santiago APRN, R.N. LAB BLOOD NON ADD-ON Performing Organization Address City/[facility] Code Phon e Number [facility]IES - [address] (ABNORMAL) Lactate, Whole Blood - Intra-op (07/15/2018 7:24 PM PLANISHER) athologist [facility] Lactate, B 3.2 (H) 0.5 - 2.2 07/15/2018 [facility] mmol/L 7:28 PM [facility]ER LABORATORIES [facility] Specimen Anatomical Collection Method Collection Time Receive d Time (Source) Location / / Volume Laterality Blood (Blood, 07/15/2018 7:24 PM 07/15/19 19 7:24 Arterial Line) PLANISHER PM PLANISHER Tomás Mohamud M.D. LAB BLOOD NON ADD-ON Performing Organization Address City/[facility]/ZIP Code Phon e Number [facility]IES - [address] (ABNORMAL) Glucose, Whole Blood (07/15/2018 7:24 PM PLANISHER) athologist Signature Glucose 257 (H) 70 - 140 07/15/2018 [facility] mg/dL 7:28 PM PL[facility]ER LABORATORIES [facility] Specimen Anatomical Collection Method Collection Time Receive d Time (Source) Location / / Volume Laterality Blood (Blood, 07/15/2018 7:24 PM 07/15/19 19 7:24 Arterial Line) PLANISHER PM PLANISHER Tomás Mohamud M.D. LAB BLOOD TROPONIN Performing Organization Address City/[facility]/ZIP Code Phon e Number [facility]ATORIES - [address] [phone] [facility] Potassium, Blood (07/15/2018 7:24 PM PLANISHER) athologist Signature Potassium, B 4.6 3.6 - 5.2 07/15/2018 [facility] mmol/L 7:28 PM PLANISHER LABORATORIES - [facility] Specimen Anatomical Collection Method Collection Time Receive d Time (Source) Location / / Volume Laterality Blood (Blood, 07/15/2018 7:24 PM 07/15/19 19 7:24 Arterial Line) PLANISHER PM PLANISHER Tomás Mohamud M.D. LAB BLOOD NON ADD-ON Performing Organization Address City/[facility]/ZIP Code Phon e Number [facility]IES - [address] [address] 05 [facility] Sodium, B (07/15/2018 7:24 PM PLANISHER) P athologist Signature Sodium, B 139 135 - 145 07/15/2018 [facility] mmol/L 7:28 PM [facility]ER LABORATORIES - [facility] Specimen Anatomical Collection Method Collection Time Receive d Time (Source) Location / / Volume Laterality Blood (Blood, 07/15/2018 7:24 PM 07/15/19 19 7:24 Arterial Line) PLANISHER PM PLANISHER Tomás Mohamud M.D. LAB BLOOD NON ADD-ON Performing Organization Address City/[facility]/ZIP Code Phon e Number [facility]IES - [address] [phone] [facility] (ABNORMAL) Calcium, Ionized (07/15/2018 7:24 PM [facility]) [facility] Method Time Signature Calcium, 2.61 (CL) 4.65 - 07/15/2018 [facility] Ionized, B 5.30 7:28 PM PLANISHER LABORATORIES - mg/dL [facility] Specimen Anatomical Collection Method Collection Time Receive d Time (Source) Location / / Volume Laterality Blood (Blood, 07/15/2018 7:24 PM 07/15/19 19 7:24 Arterial Line) PLANISHER PM PLANISHER Tomás Mohamud M.D. LAB BLOOD NON ADD-ON Performing Organization Address City/[facility]/ZIP Code Phon e Number [facility]IES - [address] [phone] [facility] (ABNORMAL) Blood Gas with Coox, Arterial (07/15/2018 7:24 PM [facility]ISH[facility]) [facility] Method Time Signature pO2 221 (H) 83 - 108 07/15/2018 [facility] mm Hg 7:28 PM PLANISHER LABORATORIES - [facility] pCO2 45 32 - 45 07/15/2018 [facility] mm Hg 7:28 PM PLANISHER [facility] pH 7.21 (L) 7.35 - 07/15/2018 [facility] 7.45 pH 7:28 PM PLANISHER [facility] Base Excess -10 (L) -2 - 3 07/15/2018 [facility] mmol/L 7:28 PM PLANISHER LABORATORIES [facility] HCO3 18 (L) 22 - 26 07/15/2018 [facility] mmol/L 7:28 PM PLANISHER [facility] Hemoglobin, B 13.2 11.6 - 07/15/2018 [facility] 15.0 g/dL 7:28 PM PLANISHER [facility] O2Hb 97.8 94.0 - 07/15/2018 [facility] 98.0 % 7:28 PM PLANISHER [facility] COHb 1.6 <3.0 % 07/15/2018 [facility] 7:28 PM PLANISHER [facility] MetHb <1.0 <1.5 % 07/15/2018 [facility] 7:28 PM PLANISHER [facility] CtO2 18.7 18.0 - 07/15/2018 [facility] 21.0 vol 7:28 PM PLANISHER LABORATORIES [facility] Specimen Anatomical Collection Method Collection Time Receive d Time (Source) Location / / Volume Laterality Blood (Blood, 07/15/2018 7:24 PM 07/15/19 19 7:24 Arterial Line) PLANISHER PM PLANISHER Tomás Mohamud M.D. LAB BLOOD NON ADD-ON Performing Organization Address City/State/ZIP Code Phon e Number [facility]IES - [address] [address] [facility] Transfuse autologous RBC (Cell Salvage) : (07/15/2018 7:23 PM PLANISHER) Tomás Mohamud M.D. BLOOD TRANSFUSION ORDERABLES (ABNORMAL) PT (Prothrombin Time) with INR - Intra-Op (07/15/2018 7:23 PM PLANISHER) [facility] Method Time Signature Prothrombin 13.9 (H) 9.4 - 07/15/2018 [facility] Time, P 12.5 sec 7:38 PM PLANISHER [facility] INR 1.3 0.9 - 1.1 07/15/2018 [facility] 7:38 PM PLANISHER [facility] Comment: ----ADDITIONAL INFORMATION---- Standard intensity warfarin therapeutic range: 2.0 to 3.0 ?? High intensity warfarin therapeutic rang e: 2.5 to 3.5 Specimen Anatomical Collection Method Collection Time Receive d Time (Source) Location / / Volume Laterality Blood (Blood, 07/15/2018 7:23 PM 07/15/19 19 7:23 Arterial Line) PLANISHER PM PLANISHER Tomás Mohamud M.D. LAB BLOOD ADD-ON Performing Organization Address City/[facility]/ZIP Code Phon e Number [facility]IES - [address] [phone] [facility] (ABNORMAL) Platelet Count - Intra-Op (07/15/2018 7:23 PM PLANISHER) Analysis Performed At Patho logist Time Signature Platelet Count 86 (L) 157 - 371 07/15/2018 [facility] x10(9)/L 7:31 PM PLANISHER LABORATORIES - [facility] Specimen Anatomical Collection Method Collection Time Receive d Time (Source) Location / / Volume Laterality Blood (Blood, 07/15/2018 7:23 PM 07/15/19 19 7:23 Arterial Line) PLANISHER PM PLANISHER Tomás Mohamud M.D. LAB BLOOD ADD-ON Performing Organization Address City/[facility]/ZIP Code Phon e Number [facility]IES - [address] [phone] [facility] (ABNORMAL) Fibrinogen - Intra-Op (07/15/2018 7:23 PM PLANISHER) Patholo gist Method Time Signature Fibrinogen, P 152 (L) 200 - 393 07/15/2018 [facility] mg/dL 7:38 PM PLAN[facility]ER LABORATORIES - [facility] Specimen Anatomical Collection Method Collection Time Receive d Time (Source) Location / / Volume Laterality Blood (Blood, 07/15/2018 7:23 PM 07/15/19 19 7:23 Arterial Line) PLANISHER PM PLANISHER Tomás Mohamud M.D. LAB BLOOD ADD-ON Performing Organization Address City/[facility]/ZIP Code Phon e Number [facility]IES - [address] [phone] [facility] APTT (Activated Partial Thromboplastin Time) - Intra-Op (07/15/2018 7:23 PM PLANISHER) P athologist Signature Activated 25 25 - 37 07/15/2018 [facility] Partial sec 7:40 PM PLANISHER LABORATORIES - Thrombopl [facility] Time, [facility] Specimen Anatomical Collection Method Collection Time Receive d Time (Source) Location / / Volume Laterality Blood (Blood, 07/15/2018 7:23 PM 07/15/19 19 7:23 Arterial Line) PLANISHER PM PLANISHER Tomás Mohamud M.D. LAB BLOOD ADD-ON Performing Organization Address [facility] Phon e Number [facility]IES - [address] [phone] [facility] Transfuse Emergency Released Platelets (07/15/2018 7:22 PM PLANISHER) Tomás Mohamud M.D. BLOOD TRANSFUSION ORDERABLES Type and Screen - Intra-op (07/15/2018 7:15 PM PLANISHER) [facility] Method Time Signature ABORh A Pos Not 07/15/2018 [facility] applicable 8:34 PM LABORATORIES - PLANISHER [facility] Antibody Negative Negative 07/15/2018 [facility] Screen 7:55 PM LABORATORIES - PLANISHER [facility] Type & [id number] 07/15/2018 [facility] Screen 7:55 PM LABORATORIES - Expiration PLANISHER [facility] Testing [place] DEFAULT 07/15/2018 [facility] Location 7:21 PM LABORATORIES - PLANISHER [facility] Specimen Anatomical Collection Method Collection Time Receive d Time (Source) Location / / Volume Laterality Blood (Blood, 07/15/2018 7:15 PM 07/15/19 19 7:21 Arterial Line) PLANISHER PM PLANISHER Tomás Mohamud M.D. LAB BLOOD BANK TEST ORDERABL ES Performing Organization Address [facility] Phon e Number [facility]ORATORIES - [address] documented in this encounter Visit Diagnoses Diagnosis Major Laceration Spleen Initial - Primar y Decline Functional Status Effusion Pleural Debility Hemothorax Trauma Initial Pneumothorax Trauma Initial Fracture Rib Multiple Closed Initial Lef t Anemia Posthemorrhagic Acute (Blood Loss Anemia) Hypovolemic Shock (HCC) Acute Respiratory Failure With Hypoxia ( HCC) Splenectomy Total Status Post Abnormal Computed Tomography Hypophosphatemia Hemothorax Trauma Initial Pneumothorax Trauma Initial Fracture Rib Multiple Closed Initial Lef t documented in this encounter Admitting Diagnoses Diagnosis Major Laceration Spleen Initial documented in this encounter Administered Medications Inactive Administered Medications - up to 3 most recent administrations Medication Order MAR Action Action Date Dose Rate Site acetaminophen tablet 1,000 mg Given 07/17/2018 6:12 AM PLANISHER 1,000 mg (TYLENOL) 1,000 mg, gastric tube, Every 6 hours, First dose on Sun07/16/18 at 0645 Given 07/17/2018 12:12 AM PLANISHER 1,000 mg Given 07/16/2018 6:42 PM PLANISHER 1,000 mg acetaminophen tablet 1,000 mg (TYLENOL) Given 07/21/2018 8:32 PM PLANISHER 1,000 mg 1,000 mg, oral, 4 times daily, First dose (after last modification) on Sun07/17/18 at 1200 Given 07/21/2018 4:53 PM PLANISHER 1,000 mg Given 07/21/2018 12:10 PM PLANISHER 1,000 mg acetaminophen tablet 1,000 mg (TYLENOL) Given 07/22/2018 6:46 PM PLANISHER 1,000 mg 1,000 mg, oral, Every 6 hours, First dose (after last modification) on Sun07/22/18 at 0700 Given 07/22/2018 2:05 PM PLANISHER 1,000 mg Given 07/22/2018 7:49 AM PLANISHER 1,000 mg bisacodyl suppository 10 mg (DULCOLAX) Given 07/22/2018 9:12 AM PLANISHER 10 mg 10 mg, rectal, Daily, First dose on Sun07/18/18 at 0930 Given 07/20/2018 8:29 AM PLANISHER 10 mg Given 07/18/2018 11:38 AM PLANISHER 10 mg chlorhexidine 0.12 % mouthwash 15 mL (PE RIDEX) Given 07/16/2018 8:49 AM PLANISHER 15 mL 15 mL, swish & spit, 2 times daily, First dose on Sun07/16/18 at 0900, Swab oral cavity while on ventilator. Avoid brushing or use of mouthwash for at least 2 hours after application. Discontinue after extubation. cholecalciferol tablet 1,000 Units Given 07/22/2018 9:09 AM PLANISHER 1,000 Units (VITAMIN D3) 1,000 Units, oral, Daily, First dose on Sun07/17/18 at 0900 Given 07/21/2018 9:33 AM PLANISHER 1,000 Units Given 07/20/2018 8:29 AM PLANISHER 1,000 Units dicyclomine tablet 20 mg (BENTYL) Given 07/22/2018 2:05 PM PLANISHER 20 mg 20 mg, oral, 3 times daily, First dose on Sun07/16/18 at 2100 Given 07/22/2018 9:10 AM PLANISHER 20 mg Given 07/21/2018 8:32 PM PLANISHER 20 mg enoxaparin injection 30 mg Given 07/22/2018 9:11 AM PLANISHER 30 mg Left Upper Arm (LOVENOX) (Back) 30 mg, subcutaneous, 2 times daily, First dose on Sun07/16/18 at 2100, Drug Monitoring Program: Pharmacist to adjust medication dosing based on indication and drug clearance factors. Given 07/21/2018 8:32 PM PLANISHER 30 mg Left Upper Arm (Back) Given 07/21/2018 9:32 AM PLANISHER 30 mg Left Lower Abdomen famotidine tablet 20 mg (PEPCID) Given 07/16/2018 8:49 AM PLANISHER 20 mg 20 mg, gastric tube, 2 times daily, First dose on Sun07/16/18 at 0900, Drug Monitoring Program: Pharmacist to adjust medication dosing based on indication and drug clearance factors. fentaNYL injection 50 mcg (SUBLIMAZE) Given 07/17/2018 4:15 AM PLANISHER 50 mcg 50 mcg, intravenous, Every 1 hour PRN, severe pain or score 7-10 of 10, sedation, Starting on Sun07/15/18 at 2222, Start infusion if more than 3 doses given in 1 hour. Given 07/16/2018 4:04 AM PLANISHER 50 mcg furosemide injection 20 mg (LASIX) Given 07/17/2018 12:45 AM PLANISHER 20 mg 20 mg, intravenous, Once, On Sun07/17/18 at 0030, For 1 dose, Adults: Doses less than 120 mg: IV push over 20 mg/minute. Doses 120 mg or greater: IVPB at 4 mg/minute. Peds/Neonates: Doses less than 120 mg over 0.5 mg/kg/minute. Doses 120 mg or greater: IVPB at 4 mg/minute. furosemide injection 20 mg (LASIX) Given 07/17/2018 9:37 AM PLANISHER 20 mg 20 mg, intravenous, Once, On Sun07/17/18 at 0900, For 1 dose, Adults: Doses less than 120 mg: IV push over 20 mg/minute. Doses 120 mg or greater: IVPB at 4 mg/minute. Peds/Neonates: Doses less than 120 mg over 0.5 mg/kg/minute. Doses 120 mg or greater: IVPB at 4 mg/minute. furosemide injection 40 mg (LASIX) Given 07/18/2018 7:24 AM PLANISHER 40 mg 40 mg, intravenous, Once, On Maru 07/18/18 at 0630, For 1 dose, Adults: Doses less than 120 mg: IV push over 20 mg/minute. Doses 120 mg or greater: IVPB at 4 mg/minute. Peds/Neonates: Doses less than 120 mg over 0.5 mg/kg/minute. Doses 120 mg or greater: IVPB at 4 mg/minute. furosemide injection 40 mg (LASIX) Given 07/18/2018 5:03 PM PLANISHER 40 mg 40 mg, intravenous, Once, On Maru 07/18/18 at 1630, For 1 dose, Adults: Doses less than 120 mg: IV push over 20 mg/minute. Doses 120 mg or greater: IVPB at 4 mg/minute. Peds/Neonates: Doses less than 120 mg over 0.5 mg/kg/minute. Doses 120 mg or greater: IVPB at 4 mg/minute. Hib: Haemophilus influenzae b Given 07/22/2018 5:06 PM PLANISHER 0.5 m L Left Deltoid conjugate (PF) vaccine 0.5 mL 0.5 mL, intramuscular, Once, On Sun07/22/18 at 1600, For 1 dose iohexol 300 mg iodine/mL solution 1-200 mL Given 07/18/2018 11:0 9 AM PLANISHER 80 mL (OMNIPAQUE) 1-200 mL, intravenous, Once in imaging, contrast, Starting on Maru 07/18/18 at 1103, For 1 dose, Imaging Protocol Orders, Dose per Radiant Medication Guidelines ketamine injection (KETALAR) Given 07/18/2018 2:22 PM 70 mg Left Hand Code/trauma/sedation medication, Starting PLANISHER on Maru 07/18/18 at 1422 ketamine injection 70 mg (KETALAR) Given 07/18/2018 2:22 PM PLANISHER 70 mg 70 mg, intravenous, Once, On Sun07/18/18 at 1600, For 1 dose, Already given ketorolac injection 15 mg (TORADOL) Given 07/18/2018 1:46 PM PLANISHER 15 mg 15 mg, intravenous, Every 6 hours PRN, moderate pain or score 4-6 of 10, Starting on Maru 07/18/18 at 0952, For 2 doses, Adult IV push rate: Over 15 seconds. Peds IV push rate: Over 1 minute. 60 mg dose only for IM, not recommended for IV., Drug Monitoring Program: Pharmacist to adjust medication dosing based on indication and drug clearance factors. lactated Ringer's bolus 500 mL New Bag 07/16/2018 4:56 PM PLANISHER 500 mL 1000 mL/hr 500 mL, intravenous, at 1,000 mL/hr, Administer over 30 Minutes, Once, On Sun07/16/18 at 1545, For 1 dose lactated ringers Rate/Dose Verify 07/16/2018 12:00 PM PLANISHER 75 mL/hr 75 mL/hr 75 mL/hr, intravenous, Continuous, Starting on Sun07/16/18 at 0545 New Bag 07/16/2018 11:20 AM PLANISHER 75 mL/hr 75 mL/hr Rate/Dose Verify 07/16/2018 10:00 AM PLANISHER 75 mL/hr 75 mL/hr Lactobacillus rhamnosus GG capsule 2 Given 07/21/2018 8:32 PM CS T 2 capsules capsule (CULTURELLE) 2 capsule, oral, Daily at bedtime, First dose on Sun07/16/18 at 2100, Space 2 hours away from oral antibiotics Given 07/20/2018 8:10 PM PLANISHER 2 capsules Given 07/19/2018 9:14 PM PLANISHER 2 capsules lidocaine 5 % 1 patch Medication Applied 07/22/2018 9:10 AM 1 patch Upper Back (LIDODERM) PLANISHER 1 patch, transdermal, Administer over 12 Hours, Daily, First dose (after last modification) on Sun07/17/18 at 0930, May apply up to 3 patches per day. Medication Applied 07/21/2018 9:33 AM PLANISHER 1 patch Mid Back Medication Applied 07/20/2018 8:28 AM PLANISHER 1 patch Chest magnesium sulfate 4 g in NaCl 0.9% IVPB New Bag 07/16/2018 8:31 AM PLANISHER 4 g 27 mL/hr 4 g, intravenous, at 27 mL/hr, Administer over 240 Minutes, Once, On Sun07/16/18 at 0715, For 1 dose magnesium sulfate in water IVPB 2 g New Bag 07/18/2018 5:03 PM PLANISHER 2 g 25 mL/hr 2 g, intravenous, at 25 mL/hr, Administer over 120 Minutes, Once, On Sun07/18/18 at 1545, For 1 dose, premix bag MCV4: quadrivalent meningococcal Given 07/22/2018 5:06 PM PLANISHER 0. 5 mL Right Deltoid conjugate (PF) vaccine 0.5 mL (MENACTRA) 0.5 mL, intramuscular, Once, On Sun07/22/18 at 1600, For 1 dose MenB: meningococcal B vaccine 0.5 Given 07/22/2018 5:06 PM PLANISHER 0 .5 mL Right Deltoid mL (BEXSERO) 0.5 mL, intramuscular, Once, On Sun07/22/18 at 1600, For 1 dose ondansetron (PF) injection 4 mg (ZOFRAN) Given 07/17/2018 9:19 AM PLANISHER 4 mg 4 mg, intravenous, Every 6 hours PRN, nausea, vomiting, Starting on Sun07/17/18 at 0908 oxyCODONE IR tablet 5 mg (ROXICODONE) Given 07/17/2018 3:33 AM PLANISHER 5 mg 5 mg, gastric tube, Every 4 hours PRN, moderate pain or score 4-6 of 10, severe pain or score 7-10 of 10, Starting on Sun07/16/18 at 0642 Given 07/16/2018 7:39 PM PLANISHER 5 mg Given 07/16/2018 3:17 PM PLANISHER 5 mg oxyCODONE IR tablet 5 mg (ROXICODONE) 5 mg, oral, Every 4 hours PRN, moderate pain or score 4-6 of 10, severe pain or score 7-10 of 10, Starting on Sun07/17/18 at 0901 pantoprazole injection 40 mg (PROTONIX) Given 07/16/2018 12:31 AM PLANISHER 40 mg 40 mg, intravenous, Once, On Sun07/16/18 at 0030, For 1 dose, Administer IV push over 2 minutes. Add 10 mL NS to 40 mg vial for a final concentration of 4 mg/mL. polyethylene glycol powder packet 17 g Given 07/17/2018 8:37 AM PLANISHER 17 g (MIRALAX) 17 g, gastric tube, Daily, First dose on Sun07/16/18 at 0900, Dissolve in 240 mLs (8 ounces) of water prior to giving. Avoid mixing with starch-based thickened liquids. Given 07/16/2018 8:50 AM PLANISHER 17 g polyethylene glycol powder packet 17 g Given 07/22/2018 9:10 AM PLANISHER 17 g (MIRALAX) 17 g, oral, Daily, First dose (after last modification) on Sun07/18/18 at 0900, Dissolve in 240 mLs (8 ounces) of water prior to giving. Avoid mixing with starch-based thickened liquids. Given 07/21/2018 9:31 AM PLANISHER 17 g Given 07/20/2018 8:28 AM PLANISHER 17 g potassium chloride ER tablet 20 mEq Given 07/17/2018 9:25 AM PLANISHER 20 mEq (KLORCON/K-TAB) 20 mEq, oral, Once, On Sun07/17/18 at 0900, For 1 dose, Swallow whole. Do NOT crush, chew, or split tablet. potassium chloride IVPB 10 mEq New Bag 07/16/2018 1:58 AM PLANISHER 10 mEq 50 mL/hr 10 mEq, intravenous, at 50 mL/hr, Administer over 60 Minutes, Every 1 hour, First dose on Sun07/16/18 at 0000, For 2 doses, For K 3.3-3.5 mEq/L - give total of 20 mEq premix bag, Monitor the following for replacement: Potassium New Bag 07/16/2018 12:31 AM PLANISHER 10 mEq 50 mL/hr potassium chloride packet 20 mEq (KLOR-C ON) Given 07/16/2018 8:49 AM PLANISHER 20 mEq 20 mEq, gastric tube, Once, On Sun07/16/18 at 0715, For 1 dose, Dissolve one packet in 4-5 ounces of water or other beverage prior to administration. potassium chloride packet 20 mEq (KLOR-C ON) Given 07/18/2018 11:38 AM PLANISHER 20 mEq 20 mEq, oral, Once, On Sun07/18/18 at 0930, For 1 dose, Dissolve one packet in 4-5 ounces of water or other beverage prior to administration. potassium phosphates 45 mmol in New Bag 07/18/2018 9:13 AM PLANISHER 45 mmol 113 mL/hr NaCl 0.9% IVPB 45 mmol (rounded from 38 mmol = 0.5 mmol/kg ? 76 kg Dosing weight), intravenous, at 113 mL/hr, Administer over 9 Hours, Once, On Sun07/18/18 at 0800, For 1 dose, Monitor the following for replacement: Phosphorus pregabalin capsule 75 mg (LYRICA) Given 07/18/2018 8:19 PM PLANISHER 75 mg 75 mg, oral, 2 times daily, First dose (after last modification) on Sun07/17/18 at 0915, For 2 days Given 07/18/2018 9:05 AM PLANISHER 75 mg Given 07/17/2018 8:12 PM PLANISHER 75 mg pregabalin capsule 75 mg (LYRICA) Given 07/22/2018 9:09 AM PLANISHER 75 mg 75 mg, oral, 2 times daily, First dose (after last reorder) on Sun07/19/18 at 2100, For 7 days Given 07/21/2018 8:32 PM PLANISHER 75 mg Given 07/21/2018 9:33 AM PLANISHER 75 mg propofol 10 mg/mL infusion New Bag 07/16/2018 5:17 AM 100 mcg/kg/m in 42.2 mL/hr (DIPRIVAN) PLANISHER 5-125 mcg/kg/min ? 70.3 kg Dosing weight (2.109-52.725 mL/hr, rounded to 2.11-52.73 mL/hr), intravenous, Continuous, Starting on Sun07/15/18 at 2230, Type: Titrate, Initiate at: Other, Rate: 125mcg/kg/min upon arrival to SICU, Titrate at: 5 mcg/kg/min. every 5 min., Goal: RASS -1 Rate/Dose Verify 07/16/2018 4:00 AM PLANISHER 100 mcg/kg/min 42.2 mL/hr Rate/Dose Change 07/16/2018 3:39 AM PLANISHER 100 mcg/kg/min 42.2 mL/hr propofol 10 mg/mL Rate/Dose Change 07/16/2018 10:25 10 mcg/kg/min 4.2 2 mL/hr infusion (DIPRIVAN) AM PLANISHER 5-80 mcg/kg/min ? 70.3 kg Dosing weight (2.109-33.744 mL/hr, rounded to 2.11-33.74 mL/hr), intravenous, Continuous, Starting on Sun07/16/18 at 0645, Type: Titrate, Initiate at: 5 mcg/kg/min., Titrate at: 5 mcg/kg/min. every 5 min., Goal: RASS -1 Rate/Dose Change 07/16/2018 10:00 AM PLANISHER 20 mcg/kg/min 8.44 mL/hr Rate/Dose Change 07/16/2018 9:40 AM PLANISHER 30 mcg/kg/min 12.7 mL/hr sennosides-docusate sodium 8.6-50 mg per Given 07/17/2018 8:37 A M PLANISHER 1 tablet tablet 1 tablet (SENOKOT-S) 1 tablet, gastric tube, 2 times daily, First dose on Sun07/16/18 at 0900 Given 07/16/2018 8:06 PM PLANISHER 1 tablet Given 07/16/2018 8:49 AM PLANISHER 1 tablet sennosides-docusate sodium 8.6-50 mg per Given 07/22/2018 9: 09 AM PLANISHER 2 tablets tablet 2 tablet (SENOKOT-S) 2 tablet, oral, 2 times daily, First dose (after last modification) on Sun07/17/18 at 2100 Given 07/21/2018 8:32 PM PLANISHER 2 tablets Given 07/21/2018 9:32 AM PLANISHER 2 tablets sertraline tablet 200 mg (ZOLOFT) Given 07/22/2018 9:09 AM PLANISHER 200 mg 200 mg, oral, Daily, First dose on Sun07/17/18 at 0900 Given 07/21/2018 9:32 AM PLANISHER 200 mg Given 07/20/2018 8:29 AM PLANISHER 200 mg sodium chloride (PF) 0.9 % injection 10 mL Given 07/18/2018 11:09 AM PLANISHER 10 mL 10 mL, intravenous, Once, On Maru 07/18/18 at 1115, For 1 dose sodium chloride 0.9 % injection 10 mL Given 07/18/2018 11:09 AM PLANISHER 10 mL 10 mL, intravenous, Once, On Maru 07/18/18 at 1115, For 1 dose sodium chloride 0.9 % injection 3 mL 3 mL, intravenous, As needed, line care, Peripheral Intravenous Catheter and Rapid Infusion Catheter, Starting on Sun 9 at 1114, Prior to and following infusion and between multiple consecutive infusions. sodium chloride 0.9 % injection 3 mL Given 07/22/2018 9:10 AM PLANISHER 3 mL 3 mL, intravenous, Every 12 hours scheduled, First dose on Sun07/19/18 at 2100, Peripheral Intravenous Catheter and Rapid Infusion Catheter: When no infusion to maintain patency. Given 07/21/2018 9:46 AM PLANISHER 3 mL Given 07/20/2018 8:14 PM PLANISHER 3 mL traMADol tablet 50 mg (ULTRAM) Given 07/17/2018 6:12 AM PLANISHER 50 mg 50 mg, gastric tube, Every 6 hours, First dose on Sun07/16/18 at 0645, Drug Monitoring Program: Pharmacist to adjust medication dosing based on indication and drug clearance factors. Given 07/17/2018 12:11 AM PLANISHER 50 mg Given 07/16/2018 6:42 PM PLANISHER 50 mg traMADol tablet 50 mg (ULTRAM) Given 07/22/2018 6:47 PM PLANISHER 50 mg 50 mg, oral, Every 6 hours, First dose (after last modification) on Sun07/17/18 at 1400, Drug Monitoring Program: Pharmacist to adjust medication dosing based on indication and drug clearance factors. Given 07/22/2018 2:05 PM PLANISHER 50 mg Given 07/22/2018 7:48 AM PLANISHER 50 mg documented in this encounter Active and Recently Administered Medications Times are shown in PLANISHER. Scheduled Medication Order 07/20/2018 07/21/2018 07/22/2018 acetaminophen tablet 1,000 mg (TYLENOL) (CANCELED) 082 9 (Given - Provider: Rosalie Kim RIsabel)1134 (Given - Provider: Rosalie Kim RAlberto.)1800 (Given - Provider: Rosalie Kim R.N.)2010 (Given - Provider: Tracey Bolaños RYvonneN.) 0740 (Given - Provider: Hayden Rodriguez R.N.)1210 (Given - Provider: Hayden Rodriguez R.N.)1653 (Given - Provider: Hayden Rodriguez RYvonneN.)2032 (Given - Provider: Bebo Moctezuma R.NYvonne) 1,000 mg, oral, 4 times daily, First dos e (after last modification) on Sun07/17/18 at 1200 acetaminophen tablet 1,000 mg (TYLENOL) 0749 (Given - Provider: Debbie Jacobo)1405 (Given - Provider: Nelsy Brown R.N.)1846 (Given - Provider: Rashmi Snow R.NYvonne) 1,000 mg, oral, Every 6 hours, First dos e (after last modification) on Sun07/22/18 at 0700 bisacodyl suppository 10 mg (DULCOLAX) 0829 (Given - P rovider: Rosalie Kim R.N.) 0946 (Not Given - Provider: Hayden bustamante RIsabel - Reason: Patient/family refused) 09 (Given - Provider: Debbie Jacobo) 10 mg, rectal, Daily, First dose on Maru 07/18/18 at 0930 bisacodyl suppository 10 mg (DULCOLAX) 0 (Due ) 10 mg, rectal, Once, 07/21/18 at 2130, For 1 dose cholecalciferol tablet 1,000 Units (VITAMIN D3) 0829 ( Given - Provider: Rosalie Kim R.N.) 0933 (Given - Provider: Hayden Rodriguez R.N.) 0909 (G iven - Provider: Debbie Jacobo) 1,000 Units, oral, Daily, First dose on Sun07/17/18 at 0900 dicyclomine tablet 20 mg (BENTYL) 0829 (Given - Provid er: Rosalie Kim R.N.)140 (Given - Provider: Rosalie Kim R.N.)2010 (Given - Provider: Tracey Bolaños R.N.) 09 (Given - Provider: Hayden Rodriguez R.N.)1339 (Given - Provider: Hayden Rodriguez R.N.)2031 (Given - Provider: Bebo Moctezuma RIsaebl) 09 (Given - Provider: Debbie Jacobo)1405 (Given - Provider: Nelsy Brown RYvonneNYvonne) 20 mg, oral, 3 times daily, First dose on Sun07/16/18 at 2100 enoxaparin injection 30 mg (LOVENOX) 0828 (Given - Pro vider: Rosalie Kim R.N.)2008 (Given - Provider: Tracey Bolaños R.N.) 0932 (Given - Provider: Hayden Rodriguez R.N.)2031 (Given - Provider: Bebo Moctezuma R.N.) 09 (Given - Provider: Debbie Jacobo) 30 mg, subcutaneous, 2 times daily, Firs t dose on Sun07/16/18 at 2100, Drug Monitoring Program: Pharmacist to adjust medication dosing based on indication and drug clearance factors. Hib: Haemophilus influenzae b conjugate (PF) vaccine 0.5 mL (COM PLETED) 1705 (Given - Provider: Rashmi Snow R.N.) 0.5 mL, intramuscular, Once, On Sun07/22/18 at 1600, For 1 dose Lactobacillus rhamnosus GG capsule 2 capsule (CULTUREL LE) 2009 (Given - Provider: Tracey Bolaños R.N.) 2031 (Given - Provider: Bebo Moctezuma R.N.) 2 capsule, oral, Daily at bedtime, First dose on Sun07/16/18 at 2100, Space 2 hours away from oral antibiotics lidocaine 5 % 1 patch (LIDODERM) 827 (Medication Appl ied - Provider: Rosalie Kim R.N.)2008 (Medication Removed - Provider: Tracey Bolaños R.N.) 932 (Medication Applied - Provider: Hayden Rodriguez R.N.)2122 (Medication Removed - Provider: Bebo Moctezuma R.N.) 909 (Medication Applied - Provider: Rom Jacobo)1916 (Due: Medication Removed - Provider: Discharge Provider, Automatic - Comment: Time automatically adjusted from order being discontinued) 1 patch, transdermal, Administer over 12 Hours, Daily, First dose (after last modification) on Sun07/17/18 at 0930, May apply up to 3 patches per day. MCV4: quadrivalent meningococcal conjuga te (PF) vaccine 0.5 mL (MENACTRA) (COMPLETED) 1705 (Given - Provid er: Rashmi Snow R.N.) 0.5 mL, intramuscular, Once, On Sun07/22/18 at 1600, For 1 dose MenB: meningococcal B vaccine 0.5 mL (BEXSERO) (COMPLETED) 1705 (Given - Provider: Rashmi Snow R.N.) 0.5 mL, intramuscular, Once, On Sun07/22/18 at 1600, For 1 dose polyethylene glycol powder packet 17 g (MIRALAX) 0828 (Given - Provider: Rosalie Kim R.N.) 0931 (Given - Provider: Hayden Rodriguez R.N.) 0910 (G iven - Provider: Nelsy A Brown, R.N.) 17 g, oral, Daily, First dose (after las t modification) on Maru 07/18/18 at 0900, Dissolve in 240 mLs (8 ounces) of water prior to giving. Avoid mixing with starch-based thickened liquids. pregabalin capsule 75 mg (LYRICA) 0829 (Given - Provid er: Rosalie Kim R.N.)2010 (Given - Provider: Tracey Boalños R.N.) 932 (Given - Provider: Hayden Rodriguez R.N.)2031 (Given - Provider: Bebo Moctezuma R.N.) 09 (Given - Provider: Debbie Jacobo) 75 mg, oral, 2 times daily, First dose ( after last reorder) on Sun07/19/18 at 2100, For 7 days sennosides-docusate sodium 8.6-50 mg per tablet 2 tabl et (SENOKOT-S) 0829 (Given - Provider: Rosalie Kim R.N.)2009 (Given - Provider: Tracey Bolaños R.N.) 09 (Given - Provider: Hayden Rodriguez R.N.)2031 (Given - Provider: Bebo Moctezuma R.N.) 09 (Given - Provider: Debbie Jacobo) 2 tablet, oral, 2 times daily, First dos e (after last modification) on Sun07/17/18 at 2100 sertraline tablet 200 mg (ZOLOFT) 0829 (Given - Provider: Anup Kim R.N.) 0932 (Given - Provider: Hayden Rodriguez R.N.) 09 (Given - Provider: Debbie Jacobo) 200 mg, oral, Daily, First dose on Sun07/17/18 at 0900 sodium chloride 0.9 % injection 3 mL 1114 (Not Given - Provider: Rosalie Kim R.N. - Reason: Other)2013 (Given - Provider: Tracey Bolaños R.N.) 0946 (Given - Provider: Hayden Rodriguez R.N.)2099 (Due) 09 (Given - Provider: Nelsy Brown R.N.) 3 mL, intravenous, Every 12 hours schedu led, First dose on Sun07/19/18 at 2100, Peripheral Intravenous Catheter and Rapid Infusion Catheter: When no infusion to maintain patency. traMADol tablet 50 mg (ULTRAM) 0232 (Given - Provider: Dianne Page RIsabel)0829 (Given - Provider: Rosalie Kim RIsabel)1401 (Given - Provider: Rosalie Kim R.N.)2009 (Given - Provider: Indio HughesNYvonne) 0104 (Given - Provider: Romina Oneill RYvonneNYvonne)0740 (Given - Provider: Hayden Rodriguez RYvonneNYvonne)1339 (Given - Provider: Hayden Rodriguez RYvonneNYvonne)203 (Given - Provider: Bebo Moctezuma RYvonneNYvonne) 0131 (Given - Provider: Bebo Moctezuma RIsabel)0748 (Given - Provider: Debbie Jacobo)1405 (Given - Provider: Nelsy Brown RYvonneNYvonne)1847 (Given - Provider: Rashmi Snow RIsabel - Comment: Patient discharging) 50 mg, oral, Every 6 hours, First dose ( after last modification) on Sun07/17/18 at 1400, Drug Monitoring Program: Pharmacist to adjust medication dosing based on indication and drug clearance factors. PRN Medication Order 07/20/2018 07/21/2018 07/22/2018 ondansetron (PF) injection 4 mg (ZOFRAN) 4 mg, intravenous, Every 6 hours PRN, na usea, vomiting, Starting on Sun07/17/18 at 0908 oxyCODONE IR tablet 5 mg (ROXICODONE) 5 mg, oral, Every 4 hours PRN, moderate pain or score 4-6 of 10, severe pain or score 7-10 of 10, Starting on Sun07/17/18 at 0901 sodium chloride 0.9 % injection 3 mL 3 mL, intravenous, As needed, line care, Peripheral Intravenous Catheter and Rapid Infusion Catheter, Starting on Sun07/19/18 at 1114, Prior to and following infusion and between multiple consecutive infusions. documented in this encounter Additional Health Concerns Assessment Noted Time PHQ-9 Depression Total Score: 2 02/19/2014 2:58 PM CDT documented as of this encounter
--- OUTSIDE RECORDS SUMMARY | 2022-01-18 13:31 | XMS_ITS | Encounter Summary ---
:1950 Author Organization [facility] Address [address] [place] [address] Care Team Providers Name Role Phone Unavailable Primary Care Provider Unavailable Encounter Details Date Type Department Care Team Description 10/31/2011 Hospital Encounter HX NO MAPPING Giovana Alanis [facility] 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 CT HEAD WITHOUT IV Routine 10/31/2011 2:17 PM Res ults for this CONTRAST CDT procedure are i n the results section. documented in this encounter Results DX Ankle Right 3+ Views (10/31/2011 2:22 PM CDT) Anatomical Region Laterality Modality Lower Extremity, Ankle Right Radiographic Imag ing Specimen (Source) Anatomical Collection Method Collection Time Re ceived Time Location / / Volume Laterality 10/31/2011 2:22 PM CDT Addenda Addendum by Provider, Leydi Awan 10/31/2011 2:22 PM CDT RAD^^^OW XR Ankle Right 3 or more views 10/31/2011 14:22:48 Impressions 10/31/2011 2:53 PM CDT ??Please see above dictation. Narrative 10/31/2011 2:53 PM CDT EXAM: ??XR Ankle Right 3 or more views AGE: ??61 years old. GENDER: ??Female. INDICATION: ??fall COMPARISON: ??None. FINDINGS: ??Tiny amount of soft tissue s welling about the right ankle. No appreciable acute osseous injury. Tin y calcaneal heel spur. If pain persists consider followup or a gas 10 days to exclude interval healing occult fracture. Procedure Note Tomás Miranda M.D. / ProviderFanta M.D. - 10/31/2016 EXAM: XR Ankle Right 3 or more views AGE: [age] years old. GENDER: Female. INDICATION: fall COMPARISON: None. FINDINGS: Tiny amount of soft tissue swe lling about the right ankle. No appreciable acute osseous injury. Tin y calcaneal heel spur. If pain persists consider followup or a gas 10 days to exclude interval healing occult fracture. IMPRESSION: Please see above dictation. Historical Provider IMG DIAGNOSTIC IMAGING PROCE BRYANT CT Head without IV Contrast (10/31/2011 2:17 PM CDT) Anatomical Region Laterality Modality Head N/A Computed Tomography Specimen (Source) Anatomical Collection Method Collection Time Re ceived Time Location / / Volume Laterality 10/31/2011 2:17 PM CDT Addenda Addendum by ProviderEmperatriz M.D. o n 10/31/2011 2:17 PM CDT RAD^^^OW CT Head wo contrast 10/31/2011 14:17:08 Impressions 10/31/2011 2:50 PM CDT ??No appreciable acute intracranial abnormality. Additional findings as noted above. Narrative 10/31/2011 2:50 PM CDT EXAM: ??CT Head w/o contrast AGE: ??61 years old. GENDER: ??Female. INDICATION: ??fall, head injury COMPARISON: ??March 15, 2008 FINDINGS: ??No appreciable intracranial mass or hemorrhage. No midline shift. No hydrocephalus. Normal appearance of the visualized calv arium, bilateral mastoid air cells and partially visualized paranasal sinuses. Procedure Note Tomás Miranda M.D. / ProviderFanta M.D. - 10/31/2016 EXAM: CT Head w/o contrast AGE: [age] years old. GENDER: Female. INDICATION: fall, head injury COMPARISON: March 15, 2008 FINDINGS: No appreciable intracranial ma ss or hemorrhage. No midline shift. No hydrocephalus. Normal appearance of the visualized calv arium, bilateral mastoid air cells and partially visualized paranasal sinuses. IMPRESSION: No appreciable acute intracr anial abnormality. Additional findings as noted above. Historical Provider IMG CT PROCEDURES documented in this encounter Visit Diagnoses Not on filedocumented in this encounter
--- OUTSIDE RECORDS SUMMARY | 2022-01-18 13:31 | XMS_ITS | Encounter Summary ---
:1950 Author Organization [facility] Address [address] [place] [address] Care Team Providers Name Role Phone Unavailable Primary Care Provider Unavailable Encounter Details Date Type Department Care Team Description 09/30/2013 Hospital Encounter HX [facility] ZEKEOUN Zoila Stein M.D. 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 - 10/01/2013 6:49 PM CDT Reminder Msg Document Contains Addenda Addendum by MASSIEL GARCIA on 06 October 2014 09:53:23 CDT noted. Addendum by LIBBY STEIN MD on 05 October 2014 17:12:41 CDT From: LIBBY STEIN MD To: MAURICIO Stein Nurse; Sent: 10/05/2014 17:12:41 CDT Show up: 10/05/2014 17:11:00 CDT Subject: RE: Reminder Msg I replied to her and said she likely doesn't need the U/S now due to the fact that the nodule was biopsied and was benign. I will wait to hear back from her to see if she wants to proceed with it or not. Addendum by MASSIEL GARCIA on 05 October 2014 14:31:06 CDT From: MASSIEL GARCIA ( [facility]) To: LIBBY STEIN MD; Sent: 10/05/2014 14:31:06 CDT Show up: 10/05/2014 14:31:00 CDT Subject: RE: Reminder Msg Addendum by MASSIEL GARCIA on 05 October 2014 14:31:00 CDT Pt says she went to Dr. De Leon in [place] recently and she said that pt didn't need a follow upultrasound. Pt is going to check with her again and let us know what she wants to do. Addendum by LIBBY STEIN MD on 02 October 2014 17:03:03 CDT From: LIBBY STEIN MD To: OW Radha Nurse; Sent: 10/02/2014 17:03:03 CDT Show up: 10/02/2014 17:02:00 CDT Subject: RE: Reminder Msg US order entered. Please contact pt to schedule. Addendum by CRUZ LE on 02 October 2014 10:31:58 CDT From: CRUZ LE (OW Radha Nurse) To: LIBBY STEIN MD; Sent: 10/02/2014 10:31:58 CDT Show up: 10/02/2014 10:31:00 CDT Subject: RE: Reminder Msg Please enter the order to schedule. 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 - 10/01/2013 6:48 PM CDT Results Notification Document Contains Addenda Addendum by MASSIEL GARCIA on 02 October 2013 14:56:19 CDT pt notified. From: LIBBY STEIN MD Sent: 10/01/2013 18:48:52 CDT ! Show up: 10/01/2013 18:48:52 CDT Subject: Results Notification Actions: Notify patient-refer to General Message Reminder Comments: Thyroid US shows several small benign-appearing nodules. Radiologist recommends f/u US in 1 year to make sure they remain stable. Results: Date Result Type Result Name 09/30/2013 14:58 Radiology US Thyroid Source: [facility] [employer] Document Id: [id number] Electronically signed by Conversion, [facility] Senior Mechanical Design Engineer [id number] at 11/06/2016 9:31 PM CDT documented in this encounter Plan of Treatment Not on filedocumented as of this encounter Procedures Procedure Name Priority Date/Time Associated Diagnosis Comme nts US THYROID Routine 09/30/2013 1:50 PM Results f or this CDT procedure are i n the results section . documented in this encounter Results Ultrasound thyroid (09/30/2013 1:50 PM CDT) Anatomical Region Laterality Modality Head and Neck Ultrasound Specimen (Source) Anatomical Collection Method Collection Time Re ceived Time Location / / Volume Laterality 09/30/2013 1:50 PM CDT Addenda Addendum by Provider, Leydi Awan 09/30/2013 1:50 PM CDT RAD^^^OW US Thyroid 09/30/2013 13:50:07 Impressions 09/30/2013 2:55 PM CDT 1. Multiple small thyroid nodules. [address] followup ultrasound in one year. Narrative 09/30/2013 2:55 PM CDT EXAM: US Thyroid INDICATION: swelling in anterior neck,, eval for thyroid abnormalities COMPARISON: None. FINDINGS: Right thyroid lobe 5.2 x 1.6 x 1.1 cm, n ormal size. The thyroid lobe 4.2 x 1.5 x 1.4 cm, nor mal size. Right lobe has a few colloid cysts. The isthmus is a 5 x 5 x 2 mm solid nodu le that is hypoechoic, has no internal vascularity, and no calcificati ons. Left lobe has several small nodules. Lar gest nodule is 9 x 8 x 4 mm in the midpole with mild internal vascul arity. This is mostly solid with small cystic component. No calcific ations. Procedure Note Kobe Dominguez M.D. / Emperatriz Abdi M.D. - 10/20/2016 EXAM: US Thyroid INDICATION: swelling in anterior neck,, eval for thyroid abnormalities COMPARISON: None. FINDINGS: Right thyroid lobe 5.2 x 1.6 x 1.1 cm, n ormal size. The thyroid lobe 4.2 x 1.5 x 1.4 cm, nor mal size. Right lobe has a few colloid cysts. The isthmus is a 5 x 5 x 2 mm solid nodu le that is hypoechoic, has no internal vascularity, and no calcificati ons. Left lobe has several small nodules. Lar gest nodule is 9 x 8 x 4 mm in the midpole with mild internal vascul arity. This is mostly solid with small cystic component. No calcific ations. IMPRESSION: 1. Multiple small thyroid nodules. [address] [facility] followup ultrasound in one year. Juli Fournier R.V.T., RDelfinMYvonneS. 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
--- OUTSIDE RECORDS SUMMARY | 2022-01-18 13:31 | XMS_ITS | Encounter Summary ---
:1950 Author Organization [facility] Address [address] [place] [address] Care Team Providers Name Role Phone Unavailable Primary Care Provider Unavailable Encounter Details Date Type Department Care Team Description 11/25/2013 Hospital Encounter HX [facility] INTERNMED Zoila Stein M.D. 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 - 11/25/2013 10:07 AM CDT [id number] CHIEF COMPLAINT/REASON FOR VISIT Issues with walking. HISTORY OF PRESENT ILLNESS Caryl reports that she has had some concerns about intermittent cells that she has every few months. Her mother and maternal grandmother both had some type of neurologic disorder that they developed in their 60s. Her mother was eventually diagnosed with parkinsonism but not Parkinson disease itself. She developed difficulty with walking and could not ambulate by the end of her life. She did have a tremor in her legs and she believes she may have had a tremor in her hands towards the end of her lifeas well. She is very concerned that she could be developing the same type of problem. What she notices is that for a couple of days every few months she will get a woozy feeling in the head and she will be lightheaded and somewhat dizzy if she turns her head too quickly. Along with this, she can have some feeling of being off balance. Her legs are not really weak, but she feels like there is there is the sensation of approaching numbness in her legs. She has not had a tremor with this. This will last for a couple days and then seemed to go away. Now she is back to normal. The episode occurred a few weeks ago. She is very concerned that she is developing the same problem that diony had, and is interested in seeing a neurologist. She believes that the neurologist her mother saw may still be at the [facility] and she plans to look up that provider's name and see if they arestill practicing there. Her blood pressure does tend to run somewhat low and she says she does try to be careful about drinking enough fluids. She has not tried to eat much salt lately. There does not seem to be a pattern to the spells when they occur. She does not take any medications for blood pressure. MEDICATIONS Reviewed EMR dated 11/25/2013 and no changes. ALLERGIES No known drug allergies. SYSTEMS REVIEW She did see Dr. Mcfarlane for the multinodular goiter in October and ended up having an ultrasound-guided fine needle aspiration of a left-sided thyroid nodule. This is showed benign findings. PAST MEDICAL/SURGICAL HISTORY 1. Irritable bowel syndrome. 2. Depression. 3. Hyperlipidemia. 4. Status post tonsillectomy. 5. Status post knee surgery. 6. Status post tubal ligation. VITAL SIGNS Vitals reviewed per EMR dated 11/25/2013. PHYSICAL EXAMINATION GENERAL: This is an alert, pleasant, middle-aged female, with normal speech, in no acute distress. SKIN: No jaundice or rashes. NEUROLOGIC: Cranial nerves II-XII are grossly intact. Tongue protrudes midline. No nystagmus noted on testing of extraocular movements. She has 5/5 strength in proximal and distal upper and lower extremities bilaterally. Aomfht-jh-bqdw and ofeq-ls-xbmg are intact bilaterally without dysmetria. She hasnormal rapid alternating movements in the hands. She has normal vibratory sensation in all 4 extremities, and reflexes are symmetric and are 2+ at both biceps, brachioradialis, and knees. Gait is normal. IMPRESSION/REPORT/PLAN Intermittent lightheaded sensation with sensation of being off balance. This occurs intermittently and lasts for a couple days and then resolves. Advised the patient that there are many possible reasons for this. One could be some issues with low blood pressure and orthostatic hypotension. The patient's blood pressure does tend to run low and it is possible that she could become mildly dehydrated at times which could cause some significant orthostatic changes. Advised her that she should work on drinking plenty of fluids and consider eating more salt if she would develop these dizzy symptoms. An inner ear process is also a possibility. She is most concerned about developing the same neurologic disorder that her mother and maternal grandmother had and would prefer to see a neurologist for further evaluation. At this time, she does plan to determine if the physician her mother saw is still practicing at the [facility] and, if so, she will request a referral to that provider. If not, she would bewilling to see another [place] neurologist in [place] that could have access to her mother's records. Vonnie Stein M.D./oscar Electronically Signed By: VONNIE STEIN MD On: 11/26/2013 06:27 PM Source: [facility] MHSDOLBEYNONRADSYS Document Id: [id number] documented in this encounter Miscellaneous Notes Miscellaneous - Conversion, Historical Provider Ser - 03/23/2014 12:04 PM CDT *Medication Refill Msg From: MONSTER ONEIL (MAURICIO Stein Nurse) To: VONNIE STEIN MD; Sent: 03/23/2014 12:04:56 CDT Subject: *Medication Refill Msg Caller is: ( ) Patient ( ) Mother ( ) Father ( ) Spouse ( ) Daughter ( ) Son ( x ) Pharmacy ( ) Other: Provider: Radha [facility] Name of Medications Needing Refill: Dicyclomine 10mg caps ; take one cap PO 3 x daily; #270 Last Refill Date: Additional Information: Different dose in medication list so rx not proposed. Last / Future Appointment: Patient has appointment tomorrow with Dr. 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 POWERCHART Document Id: [id number] Miscellaneous - Vonnie Stein M.D. - 11/25/2013 12:13 PM CDT Ambulatory Patient Summary [facility] [address] [place] [phone] Visit Information Name: CARYL MORENO [facility] Number: [id number] Current Date: 11/25/2013 12:13:28 Physicians Attending Provider: VONNIE STEIN MD Primary Care Provider: VONNIE STEIN MD CARYL MORENO has been given the following list of follow-up instructions, medication list, and patient education materials: Follow-up Instructions Your Medications Here is a list of your medications. It is important to take your medications as directed. Use a pillbox or chart to help remind you to take your medications. Please let your doctor or nurse know if you have problems taking your medications. Medication/Strength How to Take Indications/Special Instructions/Comments/Notes for Patient Medication Changes/Routing dicyclomine (dicyclomine 10 mg oral capsule) 2 cap, Oral, three times a day Misc Prescription (Misc Prescription) Pro biotics daily multivitamin with minerals (Vitamin D with Minerals oral tablet) 1 Tablet(s), Oral, once a day *sertraline (Zoloft 100 mg oral tablet) 2 Tablet(s), Oral, once a day simvastatin (simvastatin 20 mg oral tablet) 1 Tablet(s), Oral, once a day (at bedtime) * You have let us know that you are not taking this medication as listed. Please talk with your primary care provider or the health care provider who prescribed the medication as soon as possible. Stop Taking the Following Medications: Medication list as of 11-25-13 12:13 Attention: If you have any medications at home that are not on this list, DO NOT take them until youcontact your provider for clarification. Give a copy of your medication list to your primary care provider. Update your medication list any time medications or doses are changed and carry your medication list at all times in case of emergency. Electronically Signed By: VONNIE STEIN MD Signed On:25-NOV-2013 12:13:21 Your Allergies & Intolerances Substance Reaction Symptoms Category Comments No Known Allergies Your Problem List Problem Status Onset Comments Irritable bowel syndrome (IBS) Active Cervical Spondylosis without Myelopathy Active Hyperlipidemia Active Dysthymic Disorder (300.4) Active Tinnitus, Unspecified Active Seborrheic dermatitis NOS Active Hyperplastic polyp Active Osteopenia* Active Goiter Multinodular Nontoxic Active Your Upcoming Appointments Date Time Location Reason Provider No Appointments found Attention: Contact your local Clinic if further appointment detail needed. Your Goals/Additional instructions: Source: [facility] POWERCHART Document Id: [id number] Miscellaneous - Vonnie Stein M.D. - 11/25/2013 12:13 PM CDT Ambulatory Discharge Medication List [address] [id number] Visit Information Name: CARYL MORENO [facility] Number: [id number] Visit Date: 11/25/2013 12:13:26 Attending Provider: VONNIE STEIN MD Primary Care Provider: VONNIE STEIN MD CARYL MORENO has been given the following list of medications: Your Medications It is important to take your medications as directed. Use a pill box or chart to help remind you to take your medications. Please let your doctor or nurse know if you have problems taking your medications. Medication/Strength How to Take Indications/Special Instructions/Comments/Notes for Patient Medication Changes/Routing dicyclomine (dicyclomine 10 mg oral capsule) 2 cap, Oral, three times a day Misc Prescription (Misc Prescription) Pro biotics daily multivitamin with minerals (Vitamin D with Minerals oral tablet) 1 Tablet(s), Oral, once a day *sertraline (Zoloft 100 mg oral tablet) 2 Tablet(s), Oral, once a day simvastatin (simvastatin 20 mg oral tablet) 1 Tablet(s), Oral, once a day (at bedtime) * You have let us know that you are not taking this medication as listed. Please talk with your primary care provider or the health care provider who prescribed the medication as soon as possible. Stop Taking the Following Medications: Medication list as of 11-25-13 12:13 Attention: If you have any medications at home that are not on this list, DO NOT take them until youcontact your provider for clarification. Give a copy of your medication list to your primary care provider. Update your medication list any time medications or doses are changed and carry your medication list at all times in case of emergency. Electronically Signed By: VONNIE STEIN MD Signed On:25-NOV-2013 12:13:21 Additional Information: Source: [facility] POWERCH[facility] Document Id: [id number] Miscellaneous - Massiel Rodrigues L.P.N. - 11/25/2013 10:16 AM CDT Adult Nail Kegger Intake/History Adult Nail Kegger Intake/History Entered On: 11/25/2013 10:19 CDT Performed On: 11/25/2013 10:16 CDT by MASSIEL RODRIGUES Intake Chief Complaint : problems with walking due to funny head sensations at times Temperature Core : 36.9 DegC(Converted to: 98.4 DegF) Peripheral Pulse Rate : 64 /min Respiratory Rate : 16 /min Heart Rhythm : Regular Systolic Blood Pressure : 90 mmHg (LOW) Diastolic Blood Pressure : 70 mmHg NIBP Mean : 77 mmHg BP Location : Right upper extremity Blood Pressure Cuff Size : Regular Actual Weight : 72.9 kg(Converted to: 160 lb 11 oz) Dosing Weight Clinic : 72.9 kg MASSIEL RODRIGUES - 11/25/2013 10:16 CDT General Info Information Given By : Patient Languages : Sudanese MASSIEL RODRIGUES - 11/25/2013 10:16 CDT Subjective Pain Symptoms : No MASSIEL RODRIGUES - 11/25/2013 10:16 CDT Dependent Habits Tobacco Use/Currently Using : No Exposure to Tobacco Smoke : Other: former Smoking Status : Former smoker MASSIEL RODRIGUES - 11/25/2013 10:16 CDT Source: [employer] Document Id: [id number] CDT!23 documented in this encounter Plan of Treatment Not on filedocumented as of this encounter Visit Diagnoses Not on filedocumented in this encounter Additional Health Concerns Assessment Noted Time PHQ-9 Depression Total Score: 3 06/30/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
--- OUTSIDE RECORDS SUMMARY | 2022-01-18 13:31 | XMS_ITS | Encounter Summary ---
:1950 Author Organization [facility] Address [address] [place] [address] Care Team Providers Name Role Phone Unavailable Primary Care Provider Unavailable Encounter Details Date Type Department Care Team Description 12/07/2015 Hospital Encounter [facility]X [facility] Ferny Reese PFifi Mcpherson. 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 HISTORY OF PRESENT ILLNESS Patient states that today about an hour and half prior to arrival to the clinic, patient was emptying the sky cap. She incurred a laceration to the left pinky finger on the blade of a Ninja mixer. She states that she has had some bleeding which she was able to stop with application of pressure. Sheis up-to-date on tetanus. She denied any severe pain. Denied any numbness or tingling. Denied any other concerns or problems. VITAL SIGNS Per nursing notes. MEDICATIONS Per nursing notes. ALLERGIES Per nursing notes. PHYSICAL EXAMINATION GENERAL: This is a pleasant 65-year-old female, in no appreciable distress. Alert, awake, responds appropriately to auditory and visual stimuli. SKIN: On examination of the left hand, patient appears to have a 12 mm laceration over the left pinky finger. It does appear that the medial portion of the laceration appears to be slightly deeper. I suspect that there is a puncture type wound there about 2 mm. The rest of the laceration appears to bevery superficial and a small amount of active bleeding from the proximal portion of the cut. No foreign bodies. No necrotic tissues noted. The rest of the hand appears to be also unaffected. Range of motion of the pinky finger is not affected, appears to be normal. Normal sensation in the pinky fingeras well. IMPRESSION/REPORT/PLAN Laceration of the left pinky finger. PLAN: We did obtain verbal consent from the patient to proceed with laceration repair. The wound wasirrigated copiously with about 0.5 liters of normal saline. We did apply a tourniquet on the finger and after discussing risks and benefits of this procedure, we applied 2 layers of Dermabond. Patient tolerated this well. We did also fix the repair with Steri-Strips. Recommended followup consultation on as-needed basis and I did answer all the questions. She will let us know if laceration gets any signs of infection which we discussed with her in detail. Questions answered. The laceration is about 12 mm total. Melanie Hampton Electronically Signed By: FERNY REESE On: 12/08/2015 02:02 PM Source: [facility] MHSDOLBEYNONRADSYS Document Id: [id number] documented in this encounter Miscellaneous Notes Miscellaneous - Ferny Reese - 12/07/2015 3:31 PM CDT Ambulatory Patient Summary [facility] [address] [facility] [place], [place] [id number] Visit Information Name: YARELIS MORENO [facility] Number: [id number] Current Date: 12/07/2015 15:31:55 Physicians Attending Provider: FERNY REESE Primary Care Provider: PCP, HALLIE YARELIS MORENO has been given the following list [...] Take Indications/Special Instructions/Comments/Notes for Patient Medication Changes/Routing bifidobacterium-lactobacillus (Probiotic Formula) See Instructions 2 cap(s) PO Daily dicyclomine (dicyclomine 10 mg oral capsule) 1 cap, Oral, three times a day as needed for Irritable bowel symptoms multivitamin with minerals (Vitamin D with Minerals oral tablet) 1 Tablet(s), Oral, once a day sertraline (Zoloft 100 mg oral tablet) 1 Tablet(s), Oral, once a day *simvastatin (simvastatin 20 mg oral tablet) 1 Tablet(s), Oral, once a day (at bedtime) * You have let us know that you are not taking this medication as listed. Please talk with your primary care provider or the health care provider who prescribed the medication as soon as possible. Stop Taking the Following Medications: Medication list as of 12-07-15 15:31 Attention: If you have any medications at home that are not on this list, DO NOT take them until youcontact your provider for clarification. Give a copy of your medication list to your primary care provider. Update your medication list any time medications or doses are changed and carry your medication list at all times in case of emergency. Electronically Signed By: FERNY REESE Signed On:07-DEC-2015 15:31:53 Your Allergies & Intolerances Substance Reaction Symptoms Category Comments No Known Allergies Your Problem List Problem Status Onset Comments Irritable bowel syndrome (IBS) Active Cervical Spondylosis without Myelopathy Active Hyperlipidemia Active Dysthymic Disorder (300.4) Active Tinnitus, Unspecified Active Seborrheic dermatitis NOS Active Hyperplastic polyp Active Osteopenia* Active Goiter Multinodular Nontoxic Active Cold Common Active Exam General Medical NOS (GME) Active Your Upcoming Appointments Date Time Location Provider No Appointments found Attention: Contact your local Clinic if further appointment detail needed. Consider Using Patient Online Services Patient Online Services is a secure online and Mobile application that lets you: ?? View lab and test results ?? View portions of your medical record including clinical notes, immunizations and discharge summaries ?? Request an appointment or medication refill ?? Review your appointment schedule ?? Send secure messages to your care team Its easy to create an account if you dont have one. Go to [email or web address] and click on Create Your Account. Then, follow the directions to complete the online form. Youll be asked for your [facility] number which you can find at the top of this document. Your Goals/Additional instructions: Source: [facility] POWERCHART Document Id: [id number] Miscellaneous - Ferny Reese - 12/07/2015 3:31 PM CDT Ambulatory Discharge Medication List [address] [id number] Visit Information Name: YARELIS MORENO [facility] Number: [id number] Visit Date: 12/07/2015 15:31:55 Attending Provider: FERNY REESE Primary Care Provider: PCP, ELSEWHERE YARELIS MORENO has been given the following list of medications: Your Medications It is important to take your medications as directed. Use a pill box or chart to help remind you to take your medications. Please let your doctor or nurse know if you have problems taking your medications. Medication/Strength How to Take Indications/Special Instructions/Comments/Notes for Patient Medication Changes/Routing bifidobacterium-lactobacillus (Probiotic Formula) See Instructions 2 cap(s) PO Daily dicyclomine (dicyclomine 10 mg oral capsule) 1 cap, Oral, three times a day as needed for Irritable bowel symptoms multivitamin with minerals (Vitamin D with Minerals oral tablet) 1 Tablet(s), Oral, once a day sertraline (Zoloft 100 mg oral tablet) 1 Tablet(s), Oral, once a day *simvastatin (simvastatin 20 mg oral tablet) 1 Tablet(s), Oral, once a day (at bedtime) * You have let us know that you are not taking this medication as listed. Please talk with your primary care provider or the health care provider who prescribed the medication as soon as possible. Stop Taking the Following Medications: Medication list as of 12-07-15 15:31 Attention: If you have any medications at home that are not on this list, DO NOT take them until youcontact your provider for clarification. Give a copy of your medication list to your primary care provider. Update your medication list any time medications or doses are changed and carry your medication list at all times in case of emergency. Electronically Signed By: FERNY REESE V PAC Signed On:07-DEC-2015 15:31:53 Additional Information: Source: [facility] POWERCHART Document Id: [id number] Miscellaneous - Tom Kennedy, R.N. - 12/07/2015 2:42 PM CDT Adult Police Radio Dispatcher Intake/History Adult Police Radio Dispatcher Intake/History Entered On: 12/07/2015 14:45 CDT Performed On: 12/07/2015 14:42 CDT by TOM KENNEDY LPN Intake Chief Complaint : left fifth digit cut - cut on blade while doing dishes Onset of Symptoms : 12.07.2015 Temperature Oral : 36.5 DegC(Converted to: 97.7 DegF) Peripheral Pulse Rate : 64 /min Respiratory Rate : 16 /min Systolic Blood Pressure : 114 mmHg Diastolic Blood Pressure : 60 mmHg NIBP Mean : 78 mmHg BP Location : Right upper extremity Blood Pressure Cuff Size : Regular Height : 168 cm(Converted to: 5 ft 6 inch(es), 66 inch(es)) Actual Weight : 73.6 kg(Converted to: 162 lb 4 oz) Weight Source : Standing scale Dosing Weight Clinic : 73.6 kg Clinic BSA : 1.85 Body Mass Index : 26.08 kg/m2 TOM KENNEDY MUTUAL FUND ANALYST - 12/07/2015 14:42 CDT General Info Information Given By : Patient Languages : Luxembourger Is Patient Female and 13-50 no hysterectomy : No TOM KENNEDY LPN - 12/07/2015 14:42 CDT Subjective Pain Symptoms : Yes TOM KENNEDY MUTUAL FUND ANALYST - 12/07/2015 14:42 CDT Pain Scale Pain Scale Verbal 0-10 : Open TOM KENNEDY MUTUAL FUND ANALYST - 12/07/2015 14:42 CDT Pain Pain Assessment Grid Pain 1 Location : Finger Laterality : Left Intensity : 3 TOM KENNEDY MUTUAL FUND ANALYST - 12/07/2015 14:42 CDT Dependent Habits Exposure to Tobacco Smoke : Other: former Smoking Status : Former smoker Tobacco 2A : Yes Tobacco Use/Currently Using : No Tobacco Use/Last 30 Days : No Tobacco Use/Last 12 months : No TOM KENNEDY LPN - 12/07/2015 14:42 CDT Source: [employer] Document Id: [id number] CDT!39 documented in this encounter Plan of Treatment Not on filedocumented as of this encounter Visit Diagnoses Not on filedocumented in this encounter Additional Health Concerns Assessment Noted Time PHQ-9 Depression Total Score: 2 02/19/2014 2:58 PM CDT documented as of this encounter
--- OUTSIDE RECORDS SUMMARY | 2022-01-18 13:31 | XMS_ITS | Encounter Summary ---
:1950 Author Organization [facility] Address [address] [place] [address] Care Team Providers Name Role Phone Unavailable Primary Care Provider Unavailable Encounter Details Date Type Department Care Team Description 10/07/2002 Hospital Encounter HX [facility] Bruna Celestin M.D. 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
--- OUTSIDE RECORDS SUMMARY | 2022-01-18 13:31 | XMS_ITS | Encounter Summary ---
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 cholecalciferol (VITAMIN Take 1,000 Units by 0 D3) 1,000 Unit tablet mouth daily. dicyclomine (BENTYL) 10 Take 20 mg by mouth 0 mg capsule 3 (three) times a day. Lactobacillus rhamnosus Take 2 capsules by 0 GG (CULTURELLE) 10 mouth every evening. billion cell capsule oxyCODONE (ROXICODONE) 5 Take 1 tablet (5 [...] (two) times mg per tablet a day. sertraline (ZOLOFT) 100 Take 200 mg by mouth 0 mg tablet daily. traMADol (ULTRAM) 50 mg Take 1 tablet (50 mg 12 tablet 0 07/23/2018 tabletIndications: Acute total) by mouth Pain every 6 (six) hours as needed for moderate pain or score 4-6 of 10 (second line option for pain, pain not controlled by tylenol alone) Indications: Acute Pain. documented as of this encounter Plan of Treatment Not on filedocumented as of this encounter Procedures Procedure Name Priority Date/Time Associated Comments Diagnosis CT ABDOMEN PELVIS RAD - Semiurgent 07/15/2018 5:52 Pain Rib Res ults for this WITH IV CONTRAST (Fast; most ED PM [employer] LININGS procedure are in patients; some the results inpatients) section. CT CHEST WITH IV RAD - Semiurgent 07/15/2018 5:52 Pain Rib Resu lts for this CONTRAST (Fast; most ED PM [employer]ERS [employer] LININGS procedure are in patients; some the results inpatients) section. DX CHEST PORTABLE RAD - Emergent 07/15/2018 3:59 Pain Chest Resul ts for this 1 VIEW (Fastest; for the PM [employer] LININGS procedure are in most critically the results ill patients) section. documented in this encounter Results CT Abdomen Pelvis with IV Contrast (07/15/2018 5:52 PM [employer] LININGS) Anatomical Region Laterality Modality Abdomen, Pelvis, Abdominal RST LOS, Abdominal ARZ LOS, N/A Computed Tomography Abdominal FLA LOS Specimen (Source) Anatomical Collection Method Collection Time Re ceived Time Location / / Volume Laterality 07/16/2018 7:11 AM [employer] Impressions 07/16/2018 7:27 AM [employer] IMPRESSION: 1. Grade IV splenic laceration with acti ve extravasation and a large amount of hemoperitoneum. 2. Tiny left apical pneumothorax. 3. Acute displaced fractures of the left 4th-6th ribs laterally. 4. Acute nondisplaced fractures of the l eft third, seventh, and eighth ribs laterally. Narrative 07/16/2018 7:27 AM [employer] EXAM: CT CHEST WITH IV CONTRAST, CT ABDOMEN PELVIS WITH IV CONTRAST 3D/MIPS: 3D Post-Processing performed on a dependent workstation. COMPARISON: None FINDINGS: CHEST: Tiny left apical pneumothorax. [place] displaced fractures of the left 4th-6th ribs laterally. Acute nondisplac ed fractures of the left third, seventh, and eighth ribs laterally. There is a sm all left pleural effusion with associated atelectasis. The central airw ays are patent. No mediastinal adenopathy. No CT evidence of acute frac ture of the thoracic spine. ABDOMEN AND PELVIS: AAST Grade IV spleni c laceration with active extravasation and large amount of hemoperitoneum. Normal caliber abdominal aorta. Hepatic cysts. The adrenal glands, pancreas, and kidneys are unremarkable. Normal caliber small bowel. No evidence of appendicitis. Hysterectomy. Left SHERRY. De generative changes of the spine and pelvis. vRad: ??Findings concordant with prelimi naima vRad report. Procedure Note Ifeanyi Talbert M.D. - 07/16/2018For matting of this note might be different from the original. EXAM: CT CHEST WITH IV CONTRAST, CT ABDO MEN PELVIS WITH IV CONTRAST 3D/MIPS: 3D Post-Processing performed on a dependent workstation. COMPARISON: None FINDINGS: CHEST: Tiny left apical pneumothorax. [place] displaced fractures of the left 4th-6th ribs laterally. Acute nondisplac ed fractures of the left third, seventh, and eighth ribs laterally. There is a sm all left pleural effusion with associated atelectasis. The central airw ays are patent. No mediastinal adenopathy. No CT evidence of acute frac ture of the thoracic spine. ABDOMEN AND PELVIS: AAST Grade IV spleni c laceration with active extravasation and large amount of hemoperitoneum. Normal caliber abdominal aorta. Hepatic cysts. The adrenal glands, pancreas, and kidneys are unremarkable. Normal caliber small bowel. No evidence of appendicitis. Hysterectomy. Left SHERRY. De generative changes of the spine and pelvis. vRad: Findings concordant with prelimina ry vRad report. IMPRESSION: 1. Grade IV splenic laceration with acti ve extravasation and a large amount of hemoperitoneum. 2. Tiny left apical pneumothorax. 3. Acute displaced fractures of the left 4th-6th ribs laterally. 4. Acute nondisplaced fractures of the l eft third, seventh, and eighth ribs laterally. Wolfgang Chou M.D. IMG CT PROCEDURES CT Chest with IV Contrast (07/15/2018 5:52 PM [employer] LININGS) Anatomical Region Laterality Modality Chest, Thoracic RST LOS, Thoracic ARZ LOS, Thoracic N/A Computed Tomography ARZ LOS, Thoracic FLA LOS Specimen (Source) Anatomical Collection Method Collection Time Re ceived Time Location / / Volume Laterality 07/16/2018 7:11 AM [employer]INGS Impressions 07/16/2018 7:27 AM [employer]INGS IMPRESSION: 1. Grade IV splenic laceration with acti ve extravasation and a large amount of hemoperitoneum. 2. Tiny left apical pneumothorax. 3. Acute displaced fractures of the left 4th-6th ribs laterally. 4. Acute nondisplaced fractures of the l eft third, seventh, and eighth ribs laterally. Narrative 07/16/2018 7:27 AM [employer]INGS EXAM: CT CHEST WITH IV CONTRAST, CT ABDOMEN PELVIS WITH IV CONTRAST 3D/MIPS: 3D Post-Processing performed on a dependent workstation. COMPARISON: None FINDINGS: CHEST: Tiny left apical pneumothorax. [place] displaced fractures of the left 4th-6th ribs laterally. Acute nondisplac ed fractures of the left third, seventh, and eighth ribs laterally. There is a sm all left pleural effusion with associated atelectasis. The central airw ays are patent. No mediastinal adenopathy. No CT evidence of acute frac ture of the thoracic spine. ABDOMEN AND PELVIS: AAST Grade IV spleni c laceration with active extravasation and large amount of hemoperitoneum. Normal caliber abdominal aorta. Hepatic cysts. The adrenal glands, pancreas, and kidneys are unremarkable. Normal caliber small bowel. No evidence of appendicitis. Hysterectomy. Left SHERRY. De generative changes of the spine and pelvis. vRad: ??Findings concordant with roeli naima vRad report. Procedure Note Ifeanyi Talbert M.D. - 07/16/2018For matting of this note might be different from the original. EXAM: CT CHEST WITH IV CONTRAST, CT ABDO MEN PELVIS WITH IV CONTRAST 3D/MIPS: 3D Post-Processing performed on a dependent workstation. COMPARISON: None FINDINGS: CHEST: Tiny left apical pneumothorax. [place] displaced fractures of the left 4th-6th ribs laterally. Acute nondisplac ed fractures of the left third, seventh, and eighth ribs laterally. There is a sm all left pleural effusion with associated atelectasis. The central airw ays are patent. No mediastinal adenopathy. No CT evidence of acute frac ture of the thoracic spine. ABDOMEN AND PELVIS: AAST Grade IV spleni c laceration with active extravasation and large amount of hemoperitoneum. Normal caliber abdominal aorta. Hepatic cysts. The adrenal glands, pancreas, and kidneys are unremarkable. Normal caliber small bowel. No evidence of appendicitis. Hysterectomy. Left SHERRY. De generative changes of the spine and pelvis. vRad: Findings concordant with prelimina ry vRad report. IMPRESSION: 1. Grade IV splenic laceration with acti ve extravasation and a large amount of hemoperitoneum. 2. Tiny left apical pneumothorax. 3. Acute displaced fractures of the left 4th-6th ribs laterally. 4. Acute nondisplaced fractures of the l eft third, seventh, and eighth ribs laterally. Wolfgang GARCIA CT PROCEDURES DX Chest Portable 1 View (07/15/2018 3:59 PM [employer] LININGS) Anatomical Region Laterality Modality Chest, Thoracic RST LOS, Thoracic ARZ LOS, Thoracic N/A Digital Radiography FLA LOS Specimen (Source) Anatomical Collection Method Collection Time Re ceived Time Location / / Volume Laterality 07/15/2018 4:02 PM [employer]INGS Impressions 07/15/2018 4:04 PM [employer] LININGS IMPRESSION: Mildly displaced fracture of the left lateral fourth and fifth ribs. Trace left pleural effusion or thickenin g. No consolidation. Heart size and pulmonary vascularity within normal limi ts. No pneumothorax. Narrative 07/15/2018 4:04 PM [employer] LININGS EXAM: DX CHEST PORTABLE 1 VIEW Procedure Note Karlie Blanco M.D. - 07/15/2018Form atting of this note might be different from the original. EXAM: DX CHEST PORTABLE 1 VIEW IMPRESSION: Mildly displaced fracture of the left lateral fourth and fifth ribs. Trace left pleural effusion or thickenin g. No consolidation. Heart size and pulmonary vascularity within normal limi ts. No pneumothorax. Wolfgang GARCIA DIAGNOSTIC IMAGING PROCE BRYANT documented in this encounter Visit Diagnoses Diagnosis Moderate Laceration Spleen Initial - Taylor bernie Pain Chest Pain Rib documented in this encounter Administered Medications Inactive Administered Medications - up to 3 most recent administrations Medication Order MAR Action Action Date Dose Rate Site iohexol 300 mg iodine/mL Given 07/15/2018 4:55 PM 100 mL Left Antecubital solution 100 mL SK[employer] LININGS (OMNIPAQUE) 100 mL, intravenous, Once in imaging, contrast, Starting on 07/15/18 at 1713, For 1 dose NaCl 0.9 % bolus 100 mL New Bag 07/15/2018 4:55 PM [employer] LININGS 100 mL Left Antecubital 100 mL, intravenous, Once, On 07/15/18 at 1715, For 1 dose sodium chloride 0.9 % injection Given 07/15/2018 4:55 PM [employer] LININGS 10 mL Left Antecubital 10 mL 10 mL, intravenous, Once in imaging, line care, Starting on Sun07/15/18 at 1714, For 1 dose documented in this encounter Active and Recently Administered Medications Times are shown in [employer]INGS. Scheduled Medication Order 07/13/2018 07/14/2018 07/15/2018 NaCl 0.9 % bolus 100 mL (COMPLETED) 1655 (New Bag - Provider: Michelle Amador(R)) 100 mL, intravenous, Once, On 07/15/18 at 1715, For 1 dose PRN Medication Order 07/13/2018 07/14/2018 07/15/2018 iohexol 300 mg iodine/mL solution 100 mL (OMNIPAQUE) (COMPLETED) 1655 (Given - Provider: Michelle Amador(R) - Comment: [id number]) 100 mL, intravenous, Once in imaging, co ntrast, Starting on 07/15/18 at 1713, For 1 dose sodium chloride 0.9 % injection 10 mL (COMPLETED) 1655 (Given - Provider: Michelle Amador(R)) 10 mL, intravenous, Once in imaging, tory e care, Starting on 07/15/18 at 1714, For 1 dose documented in this encounter Additional Health Concerns Assessment Noted Time PHQ-9 Depression Total Score: 2 02/19/2014 2:58 PM CDT documented as of this encounter
--- OUTSIDE RECORDS SUMMARY | 2022-01-18 13:31 | XMS_ITS | Encounter Summary ---
:1950 Author Organization [facility] Address [address] [place] [address] Care Team Providers Name Role Phone Unavailable Primary Care Provider Unavailable Encounter Details Date Type Department Care Team Description 08/15/2013 Hospital Encounter HX [facility] INTER[facility]ED Maynor Murray M.D. 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 - 08/15/2013 2:03 PM CST [id number] CHIEF COMPLAINT/REASON FOR VISIT Atayt-al-zaqoqgs neck pain. HISTORY OF PRESENT ILLNESS Ms. Yarelis Painting is a very pleasant 62-year-old female with history of cervical spondylosis who presented to the internal medicine clinic today for followup of mwduo-hr-uzulivh neck pain. The he patient reports that recently she twisted her neck wrong one day a couple of weeks ago and since then has been having more iehtl-ax-mzoebel neck pain than normal. 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 Patient has no other specificcomplaints today. MEDICATIONS Reviewed per electronic medical record. No change made today. ALLERGIES No known drug allergies. PAST MEDICAL/SURGICAL HISTORY No change since last clinic visit. FAMILY HISTORY No change since last clinic visit. SOCIAL HISTORY No change since last clinic visit. SYSTEMS REVIEW Patient's review of systems today is notable for idouo-fp-niwgvaw neck pain symptoms; otherwise, review of systems today is negative. PHYSICAL EXAMINATION VITAL SIGNS: Temperature 36.6. Blood pressure is 98/70. Pulse is 68. Respirations 16. Weight is 72.9kg. GENERAL APPEARANCE: Not in acute distress. HEENT: Normocephalic, atraumatic. Extraocular movements intact. NECK: Patient's range of motion in all directions, including lateral rotations as well as flexion and extension of the neck joints, is limited by pain. There is no palpable tenderness over the C spine. CARDIAC: Regular rate and rhythm, S1, S2. PULMONARY: Clear to auscultation bilaterally. ABDOMEN: Nondistended. EXTREMITIES: No clubbing or cyanosis. NEUROLOGIC: A&O x3. PSYCH: Normal affect. DATA: X-ray of the C spine ordered today to evaluate patient's hgxgb-mu-uidueiq neck pain is pendingat the time of this dictation. IMPRESSION/REPORT/PLAN 1. Kkejk-es-eortlnx neck pain. 2. History of cervical spondylosis. PLAN: Ms. 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 I have checked an x-ray today to evaluate patient's C spine. The patient declined any additional pain medications at this time. Followup plan: The patient is instructed to return to the internal medicine clinic for followup in 1month. We will notify the patient of the C-spine x-ray results from today as soon as when the resultis available. Shakila Murray M.D./sveta Electronically Signed By: SHAKILA MURRAY MD On: 08/18/2013 09:19 AM Source: [facility] MHSDOLBEYNOLIVIA Document Id: [id number] documented in this encounter Miscellaneous Notes Miscellaneous - Shakila Murray M.D. - 08/15/2013 3:30 PM CST Results Notification Document Contains Addenda Addendum by BHAVNA SHEARER on 15 August 2013 16:05:07 PRODUCTION CREW SUPERVISOR Patient notfied. Addendum by BHAVNA SHEARER on 15 August 2013 15:58:59 PRODUCTION CREW SUPERVISOR Left message to call back. From: SHAKILA MURRAY MD Sent: 08/15/2013 15:30:06 PRODUCTION CREW SUPERVISOR ! Show up: 08/15/2013 15:30:06 PRODUCTION CREW SUPERVISOR Subject: Results Notification Actions: Notify patient of results Reminder Comments: No acute findings. Chronic degenerative joint disease. Will refer to Physical therapy here at [facility] for chronic neck pain. Follow up in clinic in 1 month. Results: Date Result Type Result Name 08/15/2013 15:25 Radiology XR Cervical Spine 2 or 3 views Source: [facility] POWERCHART Document Id: [id number] Electronically signed by Edie [facility] Community Relations Police Lieutenant [id number] at 11/07/2016 4:43 AM CDT Miscellaneous - Bhavna Shearer, L.P.N. - 08/15/2013 2:13 PM CST Adult Director Credit Risk Intake/History Adult Director Credit Risk Intake/History Entered On: 08/15/2013 14:17 PRODUCTION CREW SUPERVISOR Performed On: 08/15/2013 14:13 PRODUCTION CREW SUPERVISOR by BHAVNA SHEARER Intake Chief Complaint : Follow up on right ankle. Fell a week ago and did not hit head but has been havingsymptoms of nausea, fatigue, headache. Temperature Oral : 36.6 DegC(Converted to: 97.9 DegF) Peripheral Pulse Rate : 68 /min Respiratory Rate : 16 /min Systolic Blood Pressure : 98 mmHg Diastolic Blood Pressure : 70 mmHg NIBP Mean : 79 mmHg BP Location : Right upper extremity Blood Pressure Cuff Size : Large Actual Weight : 72.9 kg(Converted to: 160 lb 11 oz) Weight Source : Standing scale Dosing Weight Clinic : 72.9 kg BHAVNA SHEARER - 08/15/2013 14:13 PRODUCTION CREW SUPERVISOR General Info Information Given By : Patient Preferred Communication Mode : Verbal Languages : Cuban BHAVNA SHEARER [place] - 08/15/2013 14:13 PRODUCTION CREW SUPERVISOR Subjective Pain Symptoms : Yes BHAVNA SHEARER - 08/15/2013 14:13 PRODUCTION CREW SUPERVISOR Pain Pain Assessment Grid Pain 1 Location : Other: Right ankle BHAVNA SHEARER - 08/15/2013 14:13 PRODUCTION CREW SUPERVISOR Dependent Habits Tobacco Use/Currently Using : No Smoking Status : Never smoker BHAVNA SHEARER - 08/15/2013 14:13 PRODUCTION CREW SUPERVISOR Source: [facility] [employer] Document Id: [id number] PRODUCTION CREW SUPERVISOR!27 UCTION CREW SUPERVISOR documented in this encounter Plan of Treatment Not on filedocumented as of this encounter Procedures Procedure Name Priority Date/Time Associated Diagnosis Comme nts DX CERVICAL SPINE Routine 08/15/2013 2:47 PM Resu lts for this 2-3 VIEWS PRODUCTION CREW SUPERVISOR procedure are i n the results section. documented in this encounter Results DX Cervical Spine 2-3 Views (08/15/2013 2:47 PM PRODUCTION CREW SUPERVISOR) Anatomical Region Laterality Modality Cervical Spine N/A Radiographic Imaging Specimen (Source) Anatomical Collection Method Collection Time Re ceived Time Location / / Volume Laterality 08/15/2013 2:47 PM PRODUCTION CREW SUPERVISOR Addenda Addendum by Provider, Leydi Awan 08/15/2013 2:47 PM PRODUCTION CREW SUPERVISOR RAD^^^OW XR Cervical Spine 2 or 3 views 08/15/2013 14:47:56 Impressions 08/15/2013 3:22 PM PRODUCTION CREW SUPERVISOR ??No acute findings. Probable degenerative findings as noted above. Narrative 08/15/2013 3:22 PM PRODUCTION CREW SUPERVISOR EXAM: ??XR Cervical Spine 2 or 3 views AGE: ??62 years old. GENDER: ??Female. INDICATION: ??chronic neck pain COMPARISON: ??None. FINDINGS: ??Negative for fractures. Moderately prominent multilevel degenera tive disc space disease most pronounced at C3, C4, C5, C6 disc space levels. Moderate/advanced facet arthropathy most pronounced at C3, C4 facet joint levels. Loss of the normal cervical lordosis whi may be due to patient positioning and/or muscular spasm. If clinically indicated MRI of the cervi abdoul spine would be more sensitive for evaluation of ligamentous/ disc space disease. Procedure Note Tomás Miranda M.D. / Provider, Fanta diaz M.D. - 10/20/2016 EXAM: XR Cervical Spine 2 or 3 views AGE: [age] years old. GENDER: Female. INDICATION: chronic neck pain COMPARISON: None. FINDINGS: Negative for fractures. Moderately prominent multilevel degenera tive disc space disease most pronounced at C3, C4, C5, C6 disc space levels. Moderate/advanced facet arthropathy most pronounced at C3, C4 facet joint levels. Loss of the normal cervical lordosis whi ch may be due to patient positioning and/or muscular spasm. If clinically indicated MRI of the cervi abdoul spine would be more sensitive for evaluation of ligamentous/ disc space disease. IMPRESSION: No acute findings. Probable degenerative findings as noted above. Loan Martinez(Mike) [facility] PROC EDURES documented in this encounter Visit Diagnoses Not on filedocumented in this encounter Additional Health Concerns Assessment Noted Time PHQ-9 Depression Total Score: 3 06/30/2013 3:21 PM PRODUCTION CREW SUPERVISOR documented as of this encounter
--- OUTSIDE RECORDS SUMMARY | 2022-01-18 13:31 | XMS_ITS | Encounter Summary ---
:[address] [facility] Address [address] [place] [address] Care Team Providers Name Role Phone Unavailable Primary Care Provider Unavailable Encounter Details Date Type Department Care Team Description 04/20/2014 Hospital Encounter HX [facility] Mihaela Quintero M.D. [address] [facility] [place] [address] (Wo rk) Social History Tobacco Use Types Packs/Day Years Used Date Smoking Tobacco: Never Assessed Sex Assigned at Date Recorded Female 07/31/2018 2:58 PM MEAT DRESSER documented as of this encounter Last Filed Vital Signs Vital Sign Reading Time Taken Comments Blood Pressure 100/60 04/20/2014 1:07 PM MEAT DRESSER Pulse 64 04/20/2014 1:07 PM MEAT DRESSER Temperature - - Respiratory Rate 20 04/20/2014 1:07 PM MEAT DRESSER Oxygen Saturation - - Inhaled Oxygen Concentration - - Weight 73.6 kg (162 lb 4.1 oz) 04/20/2014 1:07 PM MEAT DRESSER Height 168 cm (5' 6.14) 04/20/2014 1:07 PM MEAT DRESSER Body Mass Index 26.08 04/20/2014 1:07 PM MEAT DRESSER documented in this encounter Progress Notes Pineda Quintero M.D. - 04/20/2014 1:02 PM CST [id number] CHIEF COMPLAINT/REASON FOR VISIT A 63-year-old woman here for followup of her multinodular goiter. She is currently doing quite well.No fevers, chills, cough, shortness of breath, chest pain, abdominal pain, diarrhea, or dysuria. We did see her a month ago in Dr. Stein's absence for an upper respiratory infection; this has resolved with the Z-Don. She is having some left flank pain, she does not recall any trauma. She has not hadany change in her bowels. MEDICATIONS Dicyclomine 10 mg 2 tablets 3 times daily. Multivitamin daily. Zoloft 100 mg 2 tablets daily. Simvastatin 20 mg at night. ALLERGIES No known drug allergies. VITAL SIGNS Blood pressure is 100/60, pulse is 64, weight is 73.6 kg. PHYSICAL EXAMINATION GENERAL: Middle-aged pleasant woman, no apparent distress. EYES: Pupils are equal. ENT: TMs, pearly white. Nose and mouth without lesions. NECK: Supple. Trachea is midline. Thyroid is palpable at one and a half times normal. There are no palpable discrete nodules. There is no cervical or supraclavicular adenopathy. LUNGS: Clear to auscultation. No crackles or wheezes. CARDIAC: Regular rate and rhythm. Normal S1, S2. No S3, S4 or murmurs. ABDOMEN: Soft with active bowel sounds. She does have tenderness to palpation over the left-sided rib cage. IMPRESSION/REPORT/PLAN 1. Multinodular goiter, currently stable. Will continue present cares. 2. Left-sided rib pain. She will watch for causes for trauma there. She will follow up annually, or earlier if needed. She will follow up with Dr. Celestin as well. Pineda Quintero M.D./oscar Electronically Signed By: PINEDA QUINTERO MD On: 04/21/2014 01:30 PM Source: [facility] MHSDOLBEYNONRADSYS Document Id: [id number] DRESSER documented in this encounter Miscellaneous Notes Miscellaneous - Conversion, Historical Provider Ser - 04/08/2015 9:14 AM CDT Health Maintenance Reminder 08 April 2015 YARELIS MORENO [facility] [id number] Dear YARELIS MORENO, We are sending you a reminder letter to let you know that you are due for a yearly exam and follow up on medications. If you could please call [phone] to schedule. Thanks Sincerely, MARSHA THOMAS Electronic Signature Electronically Signed By: MARSHA THOMAS On: 08 April 2015 This document has images extracted. Source: [facility] POWERCHART Document Id: [id number] Miscellaneous - Pineda Quintero M.D. - 04/20/2014 1:27 PM CST Ambulatory Patient Summary [facility] [address] [place], [place] [id number] Visit Information Name: YARELIS MORENO [facility] Number: [id number] Current Date: 04/20/2014 13:27:06 Physicians Attending Provider: PINEDA QUINTERO MD Primary Care Provider: LIBBY STEIN MD YARELIS MORENO has been given the following [...] tablet) 1 Tablet(s), Oral, once a day simvastatin (simvastatin 20 mg oral tablet) 1 Tablet(s), Oral, once a day (at bedtime) Stop Taking the Following Medications: Medication list as of 04-20-14 13:27 Attention: If you have any medications at home that are not on this list, DO NOT take them until youcontact your provider for clarification. Give a copy of your medication list to your primary care provider. Update your medication list any time medications or doses are changed and carry your medication list at all times in case of emergency. Electronically Signed By: PINEDA QUINTERO MD Signed On:20-APR-2014 13:26:51 Your Allergies & Intolerances Substance Reaction Symptoms [...] appointment detail needed. Your Goals/Additional instructions: Source: [facility] POWERCHART Document Id: [id number] DRESSER Miscellaneous - Pineda Quintero M.D. - 04/20/2014 1:27 PM CST Ambulatory Discharge Medication List [facility] [address] [place] [id number] Visit Information Name: YARELIS MORENO [facility] Number: [id number] Visit Date: 04/20/2014 13:27:05 Attending Provider: PINEDA QUINTERO MD Primary Care Provider: LIBBY STEIN MD YARELIS MORENO has been given the following [...] tablet) 1 Tablet(s), Oral, once a day simvastatin (simvastatin 20 mg oral tablet) 1 Tablet(s), Oral, once a day (at bedtime) Stop Taking the Following Medications: Medication list as of 04-20-14 13:27 Attention: If you have any medications at home that are not on this list, DO NOT take them until youcontact your provider for clarification. Give a copy of your medication list to your primary care provider. Update your medication list any time medications or doses are changed and carry your medication list at all times in case of emergency. Electronically Signed By: PINEDA QUINTERO MD Signed On:20-APR-2014 13:26:51 Additional Information: Yes - . Source: [facility] POWERCHART Document Id: [id number] DRESSER Miscellaneous - Sanna Vegas L.PYvonneN. - 04/20/2014 1:07 PM CST Adult Rental Car Ferry Driver Intake/History Adult Rental Car Ferry Driver Intake/History Entered On: 04/20/2014 13:10 MEAT DRESSER Performed On: 04/20/2014 13:07 MEAT DRESSER by SANNA VEGAS Intake Chief Complaint : thyroid checkup Temperature Core : 36.1 DegC(Converted to: 97.0 DegF) (LOW) Peripheral Pulse Rate : 64 /min Respiratory Rate : 20 /min Heart Rhythm : Regular Systolic Blood Pressure : 100 mmHg Diastolic Blood Pressure : 60 mmHg NIBP Mean : 73 mmHg BP Location : Right upper extremity Blood Pressure Cuff Size : Regular Height : 168 cm(Converted to: 5 ft 6 inch(es), 66 inch(es)) Actual Weight : 73.6 kg(Converted to: 162 lb 4 oz) Dosing Weight Clinic : 73.6 kg Clinic BSA : 1.85 Body Mass Index : 26.08 kg/m2 SANNA VEGAS - 04/20/2014 13:07 MEAT DRESSER General Info Languages : Tajik Is Patient Female and 13-50 no hysterectomy : No SANNA VEGAS - 04/20/2014 13:07 MEAT DRESSER Subjective Pain Symptoms : Yes SANNA VEGAS - 04/20/2014 13:07 MEAT DRESSER Pain Pain Assessment Grid Pain 1 Location : Abdomen (Comment: left sided-radiates around to back [SANNA VEGAS - 04/20/2014 13:07 MEAT DRESSER] ) SANNA VEGAS - 04/20/2014 13:07 MEAT DRESSER Dependent Habits Tobacco Use/Currently Using : No Exposure to Tobacco Smoke : Other: former Smoking Status : Former smoker SANNA VEGAS - 04/20/2014 13:07 MEAT DRESSER Tobacco Use Grid Last Use : 2000 SANNA VEGAS - 04/20/2014 13:07 MEAT DRESSER ID Screen Travel Within Last 21 Days : No SANNA VEGAS - 04/20/2014 13:07 MEAT DRESSER [facility] Document Id: [id number] MEAT DRESSER!35 DRESSER documented in this encounter Plan of Treatment Not on filedocumented as of this encounter Visit Diagnoses Not on filedocumented in this encounter Additional Health Concerns Assessment Noted Time PHQ-9 Depression Total Score: 2 02/19/2014 2:58 PM CDT documented as of this encounter
--- OUTSIDE RECORDS SUMMARY | 2022-01-18 13:31 | XMS_ITS | Encounter Summary ---
:1950 Author Organization [facility] Address [address] [place] [address] Care Team Providers Name Role Phone Unavailable Primary Care Provider Unavailable Encounter Details Date Type Department Care Team Description 09/25/2013 Hospital Encounter HX [facility] INTERNMED Zoila Garcia M.D. 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 - 09/25/2013 10:29 AM CDT [id number] CHIEF COMPLAINT/REASON FOR VISIT Establish care and discuss pain in the neck. HISTORY OF PRESENT ILLNESS Mrs. Moreno had been getting her healthcare in [place] and switched to [place] recently. She was seeing Dr. Murray but says she prefers to switch to a female provider. She has basically been a very healthy person. She deals with problems with hyperlipidemia and has been on simvastatin chronically. Lipids have been fairly well controlled with this. Review of the record shows they were last checked in the fall of 2012. She also has a history of irritable bowel syndrome, which can involve pain, bloating and increased intestinal gas. She takes dicyclomine 2 or 3 tablets per day, and that has been very effective for her. She also has a history of depression and says this seemed to worsen when both her parents and her brother all within a fairly short time frame. She is controlling the depression with Zoloft and does see Dr. Page in Psychiatry for this as well as seeing a counselor regularly. That has been quite helpful. Dr. Page recently prescribed some Xanax for her as needed, butjimmy has not yet tried that medication. She notes that she had a fall a few months ago where she fell forward and benedict her neck. She has been having some neck pain ever since, and is now receiving physical therapy [facility] [place]. That seems to really be helping. Over the last couple of weeks, she has noticed some tenderness in the anterior neck which is something different than the neck pain she has been experiencing after the fall. She has some constant mild discomfort in the right side of the neck and then on the left side it is basically sore to the touch. She has not really noticed swelling in that area. Her father did have thyroid cancer. The patient does not have a personal history of any thyroid problems. She does not recall having had her thyroid tested with ultrasound or blood work in the past. MEDICATIONS Dicyclomine 20 mg t.i.d. Probiotics 1 tablet daily. Simvastatin 20 mg at bedtime. Vitamin D 1 tablet daily. Zoloft 200 mg daily. ALLERGIES No known drug allergies. SYSTEMS REVIEW She remains very active. Bowels seem to be fairly well controlled with the dicyclomine at this time.She will be traveling to [place] in a few weeks and is really looking forward to that trip. She will together with children and grandchildren. She has not had any breathing problems. PAST MEDICAL/SURGICAL HISTORY 1. Irritable bowel syndrome. 2. Depression. 3. Hyperlipidemia. 4. Status post tonsillectomy. 5. Status post knee surgery. 6. Status post tubal ligation. SOCIAL HISTORY The patient is and lives with her in [place]. 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 She has 1 biologic daughter and 2 stepchildren. She is a former smoker and quit about 13 years ago. She drinks alcohol socially, typically 1 or 2drinks every 2 weeks. She drinks caffeine in the form of coffee daily. FAMILY HISTORY Mother due to complications of COPD. Father of complications of prostate cancer andalso had bladder cancer and thyroid cancer. Her brother at the age of 61 from colon cancer. Shehas another brother who is healthy. Paternal grandfather had colon cancer. VITAL SIGNS Height 168 cm, weight 72.8 kg. BMI 25.8, temperature 37 degrees Celsius, heart rate 80, respiratory rate 16, blood pressure 100/76. PHYSICAL EXAMINATION GENERAL: This is an alert, pleasant, middle-aged female, with normal speech, in no acute distress. SKIN: No jaundice or rashes. HEAD: Normocephalic, atraumatic. EYES: PERRLA, EOMI, sclerae anicteric. ENT: Oropharynx pink, mucous membranes moist. No oral lesions. NECK: Supple. LYMPH NODES: No cervical or supraclavicular lymphadenopathy. THYROID: The thyroid does feel slightly generous in size. No nodules or irregularities noted. She does experience some tenderness to palpation when the right and left neck are palpated anterior. No masses noted in this region. PERIPHERAL VESSELS: Radial and dorsalis pedis pulses 2+ bilaterally. HEART: Regular rate and rhythm, normal S1 and S2. No murmurs. LUNGS: Clear to auscultation bilaterally. No wheezes, crackles, or rhonchi. ABDOMEN: Soft, active bowel sounds. Nondistended, nontender. EXTREMITIES: Warm. No lower extremity edema. GAIT: Normal. IMPRESSION/REPORT/PLAN 1. Intermittent tenderness in the anterior neck. This seems to be worse when the area is palpated and the cause is not clear. At this time, I would like her to undergo a thyroid ultrasound to look for any abnormalities. Also plan to check a TSH to look for a thyroid disorder. If these studies are all normal, then advised her this is likely a musculoskeletal process and hope to see improvement with the physical therapy. I did not detect any enlarged lymph nodes today or other abnormalities on examination of her neck. 2. Irritable bowel syndrome. She controls this with the dicyclomine and appears to be doing well with this. This will be continued. 3. Hyperlipidemia. Plan to continue the simvastatin for now and recheck lipids at the time of her physical next fall. 4. Depression. She is seeing Dr. Page in Psychiatry as well as a counselor for this and appears sulaiman doing fairly well. She may continue with the Zoloft at the same dose. 5. Health care maintenance issues. These were not addressed today and plan to address at her physical next fall. Libby Garcia M.D./oscar Electronically Signed By: LIBBY GARCIA MD On: 09/27/2013 04:40 PM Source: [facility] MHSDOLBEYNONRADSYS Document Id: [id number] documented in this encounter Miscellaneous Notes Miscellaneous - Libby Garcia M.D. - 09/25/2013 3:49 PM CDT Custom Result Letter 25 September 2013 YARELIS MORENO [address] [place] [id number] Dear YARELIS MORENO, Your thyroid blood test is normal, meaning that your thyroid gland functions normally. I will watch for your ultrasound result and will call you with the result once it is available. Result Name Current Result Normal Range TSH (mIU/L) 2.43 09/25/2013 0.30 - 5.00 Sincerely, LIBBY GARCIA [address] [place] [id number] Electronic Signature Electronically Signed By: LIBBY GARCIA MD On: 25 September 2013 This document has images extracted. Source: [facility] POWERCHART Document Id: [id number] Electronically signed by Edie [facility] Sheet Metal Superintendent [id number] at 11/06/2016 9:31 PM CDT Miscellaneous - Libby Garcia M.D. - 09/25/2013 11:15 AM CDT Ambulatory Patient Summary [facility] [address] [place] [id number] Visit Information Name: YARELIS MORENO [facility] Number: [id number] Current Date: 09/25/2013 11:15:51 Physicians Attending Provider: LIBBY GARCIA MD Primary Care Provider: SHAKILA MURRAY MD YARELIS MORENO has been given the [...] day sertraline (Zoloft 100 mg oral tablet) 2 Tablet(s), Oral, once a day simvastatin (simvastatin 20 mg oral tablet) 1 Tablet(s), Oral, once a day (at bedtime) Stop Taking the Following Medications: Medication list as of 09-25-13 11:15 Attention: If you have any medications at home that are not on this list, DO NOT take them until youcontact your provider for clarification. Give a copy of your medication list to your primary care provider. Update your medication list any time medications or doses are changed and carry your medication list at all times in case of emergency. Electronically Signed By: LIBBY GARCIA MD Signed On:25-SEP-2013 11:15:46 Your Allergies & Intolerances Substance Reaction Symptoms Category Comments No Known Allergies Your Problem List Problem Status Onset Comments Irritable bowel syndrome (IBS) Active Cervical Spondylosis without Myelopathy Active Hyperlipidemia Active Dysthymic Disorder (300.4) Active Tinnitus, Unspecified Active Seborrheic dermatitis NOS Active Hyperplastic polyp Active Osteopenia* Active Your Upcoming Appointments Date Time Location Reason Provider No Appointments found Attention: Contact your local Clinic if further appointment detail needed. Your Goals/Additional instructions: Source: [facility] POWERCHART Document Id: [id number] Miscellaneous - Libby Garcia M.D. - 09/25/2013 11:15 AM CDT Ambulatory Discharge Medication List [address] [id number] Visit Information Name: YARELIS MORENO [facility] Number: [id number] Visit Date: 09/25/2013 11:15:50 Attending Provider: LIBBY GARCIA MD Primary Care Provider: SHAKILA MURRAY MD YARELIS MORENO has been given the [...] day sertraline (Zoloft 100 mg oral tablet) 2 Tablet(s), Oral, once a day simvastatin (simvastatin 20 mg oral tablet) 1 Tablet(s), Oral, once a day (at bedtime) Stop Taking the Following Medications: Medication list as of 09-25-13 11:15 Attention: If you have any medications at home that are not on this list, DO NOT take them until youcontact your provider for clarification. Give a copy of your medication list to your primary care provider. Update your medication list any time medications or doses are changed and carry your medication list at all times in case of emergency. Electronically Signed By: LIBBY GARCIA MD Signed On:25-SEP-2013 11:15:46 Additional Information: Source: [facility] POWERCHART Document Id: [id number] Miscellaneous - Massiel Rodrigues L.P.N. - 09/25/2013 10:46 AM CDT Adult Rifle Case Repairer Intake/History Adult Rifle Case Repairer Intake/History Entered On: 09/25/2013 10:49 CDT Performed On: 09/25/2013 10:46 CDT by MASSIEL RODRIGUES Intake Chief Complaint : establish care problems with neck pain Ambulatory Intake Additional Information : pt did not bring med list but states all same Temperature Core : 37.0 DegC(Converted to: 98.6 DegF) Peripheral Pulse Rate : 80 /min Respiratory Rate : 16 /min Heart Rhythm : Regular Systolic Blood Pressure : 100 mmHg Diastolic Blood Pressure : 76 mmHg NIBP Mean : 84 mmHg BP Location : Right upper extremity Blood Pressure Cuff Size : Regular Height : 168 cm(Converted to: 5 ft 6 inch(es), 66 inch(es)) Actual Weight : 72.8 kg(Converted to: 160 lb 8 oz) Dosing Weight Clinic : 72.8 kg Clinic BSA : 1.84 Body Mass Index : 25.79 kg/m2 MASSIEL RODRIGUES - 09/25/2013 10:46 CDT General Info Information Given By : Patient Languages : Greek MASSIEL RODRIGUES JAMIL - 09/25/2013 10:46 CDT Subjective Pain Symptoms : Yes JOSE MASSIEL NEGRON - 09/25/2013 10:46 CDT Pain Pain Assessment Grid Pain 1 Location : Neck MASSIEL RODRIGUES - 09/25/2013 10:46 CDT Dependent Habits Tobacco Use/Currently Using : No Exposure to Tobacco Smoke : Other: former Smoking Status : Former smoker FLAVIOJAMES MASSIEL NEGRON - 09/25/2013 10:46 CDT [facility] Document Id: [id number] CDT!31 documented in this encounter Plan of Treatment Not on filedocumented as of this encounter Procedures Procedure Name Priority Date/Time Associated Diagnosis Comme nts THYROID-STIMULATING Routine 09/25/2013 11:55 AM R esults for this HORMONE-SENSITIVE CDT procedure are in (S-TSH) the results section. documented in this encounter Results Thyroid-Stimulating Hormone-Sensitive (s-TSH) (09/25/2013 11:55 AM CDT) P athologist Signature TSH 2.43 0.30 - 5.00 POWERCHART (Thyrotropin) MIUL Specimen (Source) Anatomical Collection Method Collection Time Re ceived Time Location / / Volume Laterality Blood 09/25/2013 11:55 AM CDT Libby Garcia M.D. LAB BLOOD ADD-ON Performing Organization Address City/State/ZIP Code Phon e Number POWERCHART documented in this encounter Visit Diagnoses Not on filedocumented in this encounter Additional Health Concerns Assessment Noted Time PHQ-9 Depression Total Score: 3 06/30/2013 3:21 PM PATCH WORKER documented as of this encounter
--- OUTSIDE RECORDS SUMMARY | 2022-01-18 13:31 | XMS_ITS | Encounter Summary ---
:1950 Author Organization [facility] Address [address] [place] [address] Care Team Providers Name Role Phone Unavailable Primary Care Provider Unavailable Encounter Details Date Type Department Care Team Description 03/24/2014 Hospital Encounter HX [facility] INTERNMED Zoila Garcia M.D. [address] [place] [address] (Wo rk) Social History Tobacco Use Types Packs/Day Years Used Date Smoking Tobacco: Never Assessed Sex Assigned at Date Recorded Female 07/31/2018 2:58 PM [employer] documented as of this encounter Last Filed Vital Signs Vital Sign Reading Time Taken Comments Blood Pressure 102/62 03/24/2014 9:17 AM CDT Pulse 76 03/24/2014 9:17 AM CDT Temperature - - Respiratory Rate 20 03/24/2014 9:17 AM CDT Oxygen Saturation - - Inhaled Oxygen Concentration - - Weight 73.3 kg (161 lb 9.6 oz) 03/24/2014 9:17 AM CDT Height 167.5 cm (5' 5.95) 03/24/2014 9:17 AM CDT Body Mass Index 26.13 03/24/2014 9:17 AM CDT documented in this encounter H&P Notes Libby Garcia M.D. - 03/24/2014 9:05 AM CDT [id number] CHIEF COMPLAINT/REASON FOR VISIT Physical. HISTORY OF PRESENT ILLNESS Yarelis reports that she has been quite stable lately. Her last physical occurred at the [facility] in [place] a year ago and the scan records are reviewed. That visit was not found, but a physicalfrom 2011 was found. She believes her colonoscopy was performed fairly recently and review of records shows that the last 1 occurred on January 26, 2011. She has been having these studies every 5 years because her brother and grandfather both had colon cancer. Her most recent study was normal, althoughjimmy does have a history of colon polyps. She does get annual mammograms and believes she has not hadany abnormalities. She has not been doing routine monthly self-breast exams, but says she will try to remember to do so. She cannot recall exactly when her last Pap smear occurred, but believes it may have been 2 years ago. The records were not found today in her chart from [facility]. She is willing to have that today and does not recall a history of abnormal Pap smears previously. She would like a flu vaccine today and believes her other vaccines are up-to-date. [facility] Overall, she feels quite good. She does have a history of osteopenia and has been treated with both Fosamax and Actonel previously. She says she went off of these for a period of time and then her doctor decided to order Reclast injections. She has been getting these annually for 2 years and believes she will continue with these for an unknown period of time. Her last bone density study was in 2011 in [place] and she believes she has always had osteopenia, but not osteoporosis. She has not had fractures. She says she has been tolerating these medications. Hyperlipidemia has been under fairly good control and she is due to have that checked today. She is tolerating the simvastatin without difficulty. She continues to see the psychiatrist for her depression and he did reduce her dose to 100 mg daily. She says she is doing well with that and has not noticed problems. The irritable bowel seems fairly stable and she just got a refill of the dicyclomine. MEDICATIONS Dicyclomine 10 mg 3 times a day as needed irritable bowel symptoms. Probiotic daily. Simvastatin 20 mg at bedtime. Vitamin D with minerals 1 tablet daily. Zoloft 100 mg daily. ALLERGIES No known drug allergies. SYSTEMS REVIEW She reports her bowels are regular. She has not had problems with chest pain or chest pressure at rest with exertion and denies dyspnea. She has not had abdominal pain or lower extremity edema. She hasnoticed that for the past few weeks, she has had rough areas in her mouth and then the skin in that area seems to shatter peel. This has not really been sore. She saw her dentist about a month ago and was not having the symptom then and so did not mention it to him. She has not had problems with pain in the mouth except that her roof of the mouth was a little bit sore a month or 2 ago. She still has a sore spot in the left side of the back when she pushes on it. This has been going on for quite sometime and she did have an ultrasound of the thyroid in September 2013, which showed multiple small thyroid nodules. The remainder of a comprehensive review of systems is negative. PAST MEDICAL/SURGICAL HISTORY 1. Irritable bowel syndrome. 2. Depression. 3. Hyperlipidemia. 4. Osteopenia. 5. Status post tonsillectomy. 6. Status post knee surgery. 7. Status post tubal ligation. 8. History of multinodular goiter. SOCIAL HISTORY The patient is and lives with her in [place]. She is retired and worked for [employer] at the [employer] for [employer] in [place]. She has 1 biologic daughter and 2 stepchildren. She is a former smoker and quit over 13 years ago. She drinks alcohol socially, typically 1 or 2 drinks every 2 weeks. She drinks coffee daily. FAMILY HISTORY Her mother due to complications of COPD and father due to complications of prostate cancerand also had bladder and thyroid cancer. Her brother at 61 from colon cancer. She has another brother who has been healthy. Grandfather also had colon cancer. VITAL SIGNS Vitals are reviewed per EMR dated 03/24/2014. PHYSICAL EXAMINATION GENERAL: This is an alert, pleasant, middle-aged female, with normal speech, in no acute distress. SKIN: No jaundice or rashes. HEAD: Normocephalic and atraumatic. EYES: PERRLA, EOMI, sclerae anicteric. ENT: Oropharynx pink, mucous membranes moist. No oral lesions. NECK: Supple. LYMPH NODES: No cervical or supraclavicular lymphadenopathy noted. No masses or deformities noted onexam of the neck including in the left lateral neck where the patient has a sore spot. THYROID: Exams shows mild enlargement of the gland. BREASTS: Symmetric with everted nipples bilaterally. No dimpling or skin changes noted. No dominant masses and no axillary lymphadenopathy detected bilaterally. PERIPHERAL VESSELS: Radial and dorsalis pedis pulses 2+ bilaterally. No carotid bruits. HEART: Regular rate and rhythm, normal S1 and S2. No murmurs. LUNGS: Clear to auscultation bilaterally. No wheezes, crackles, or rhonchi. ABDOMEN: Soft, active bowel sounds. Nondistended, nontender. No masses. PELVIS: Normal external female genitalia. Speculum exam shows a pink cervix. Pap smear is obtained. Bimanual exam shows a small uterus. Ovaries are not palpable and there are no adnexal masses. RECTUM: Rectovaginal exam shows normal external sphincter tone. There are no masses and there is brown Hemoccult-negative stool in the rectal vault. EXTREMITIES: Warm. No cyanosis, clubbing, or edema. GAIT: Not tested. NEUROLOGICAL: Symmetric and she moves all 4 extremities equally. No focal deficits. IMPRESSION/REPORT/PLAN 1. Hyperlipidemia. Plan to check fasting lipids today and adjust simvastatin dose as needed. 2. Depression. She does see Dr. Page in Psychiatry as well as a counselor for this and has been stable. Dr. Page manages her Zoloft prescription. 3. Irritable bowel syndrome. She has done quite well with the dicyclomine and this will be continued. 4. Multinodular goiter. She did have a biopsy of the thyroid nodule, which was benign and she will be seeing Dr. Mcfarlane next month for a followup visit. 5. Intermittent sloughing of skin from inside the mouth. This has been going on for a few weeks now and she does not really have sores in the mouth. The cause of this is not clear and advised her it could be a reaction to something she has eaten or possibly related to a medication. Advised her about options for evaluation of this. This includes referral to dentist or possibly an ENT provider. She would prefer to see an ENT provider and asked for a referral there. I did also suggest that acid reflux could cause these types of symptoms and she denies having reflux symptoms. 6. Osteopenia. She has received at least 5 years of an oral bisphosphonate and was switched to Reclast 2 years ago. She has since gotten 2 Reclast injections and plans to get 1 again this year. Advisedher that this is not typical therapy for osteopenia without evidence of a fragility fracture. She will discuss this with her primary care physician in [place] who has ordered this previously. Recommended she work on getting adequate calcium in the diet as well as taking the vitamin D supplement. Also recommended regular weightbearing exercise. 7. Health care maintenance issues. Vaccines appear to be up-to-date including a flu vaccine given today. She will have her mammogram today and had a normal clinical breast exam. She was advised to perform monthly self-breast exams. Pap smear was obtained. Colonoscopy is due again in January 2016 due toa family history of colon cancer. Plan to check a fasting glucose today to screen for diabetes. [place] creatinine due to use of the Reclast. Advised her to work on 30 minutes of exercise regularly as well as monthly self breast exams and wearing her seat belt regularly. Advised her to change batteries in smoke and carbon monoxide detectors at least annually and avoid texting on the cell phone while driving. 8. Followup. I will see her in 1 year or sooner if there are problems. Libby Garcia M.D./oscar Electronically Signed By: LIBBY GARCIA MD On: 03/25/2014 06:50 PM Modified by and Electronically Signed by: LIBBY GARCIA MD On: 03/25/2014 06:50 PM Source: [facility] [id number] Document Id: [id number] documented in this encounter Miscellaneous Notes Miscellaneous - Libby Garcia M.D. - 03/30/2014 2:57 PM CDT Results Notification Document Contains Addenda Addendum by MASSIEL GARCIA on 31 March 2014 16:53:06 CDT pt notified. Addendum by ARTHUR REDDY on 31 March 2014 16:24:32 CDT left message to call back From: LIBBY GARCIA MD Sent: 03/30/2014 14:57:53 CDT ! Show up: 03/30/2014 14:57:53 CDT Subject: Results Notification Actions: Notify patient-refer to General Message Reminder Comments: Pt's pap smear is negative. Results: Date Result Type Result Name 03/30/2014 13:37 Document - DOC CONVENTIONAL MORTGAGE UNDERWRITER Cytology Source: [facility] Document Id: [id number] Electronically signed by Edie, [facility] Community Service Officer Coordinator [id number] at 11/07/2016 3:31 AM CDT Miscellaneous - Libby Garcia M.D. - 03/25/2014 7:47 PM CDT Results Notification Document Contains Addenda Addendum by BHAVNA SHEARER on 26 March 2014 11:02:54 CDT Patient notified. From: LIBBY GARCIA MD Sent: 03/25/2014 19:47:05 CDT ! Show up: 03/25/2014 19:47:05 CDT Subject: Results Notification Actions: Notify patient-refer to General Message Reminder Comments: Blood sugar and kidney test are normal. Cholesterol looks very good. Continue the same medications. Results: Date Result Name Ind Value Ref Range 03/24/2014 10:55 Glucose Lvl 84 mg/dL (70 - 139) 03/24/2014 10:55 Creatinine 0.7 mg/dL (0.6 - 1.1) 03/24/2014 10:55 EGFR (MDRD) >60 mL/min/1.73m2 (>=60 - ) 03/24/2014 10:55 EGFR (MDRD) >60 mL/min/1.73m2 (>=60 - ) 03/24/2014 10:55 Cholesterol 196 mg/dL ( - <=200) 03/24/2014 10:55 Trig 90 mg/dL ( - <=150) 03/24/2014 10:55 HDL (H) 83 mg/dL (40 - 60) 03/24/2014 10:55 LDL Calculated 95 mg/dL (0 - 100) 03/24/2014 10:55 Chol/HDL Ratio 2.36 (2.20 - 4.40) 03/24/2014 10:55 LDL/HDL 1 Source: [facility] POWERCHART Document Id: [id number] Electronically signed by Edie [facility] Community Service Officer Coordinator [id number] at 11/07/2016 3:31 AM CDT Miscellaneous - Libby Garcia M.D. - 03/24/2014 9:51 AM CDT Ambulatory Patient Summary [facility] [address], [place] [phone] Visit Information Name: YARELIS MORENO [facility] Number: [id number] Current Date: 03/24/2014 09:51:57 Physicians Attending Provider: LIBBY GARCIA MD Primary Care Provider: LIBBY GARCIA MD YARELIS MORENO has been given the [...] day as needed for Irritable bowel symptoms Misc Prescription (Misc Prescription) Pro biotics daily multivitamin with minerals (Vitamin D with Minerals oral tablet) 1 Tablet(s), Oral, once a day sertraline (Zoloft 100 mg oral tablet) 1 Tablet(s), Oral, once a day simvastatin (simvastatin 20 mg oral tablet) 1 Tablet(s), Oral, once a day (at bedtime) [facility] [address], [place] [id number] Stop Taking the Following Medications: Medication list as of 03-24-14 09:51 Attention: If you have any medications at [...] Electronically Signed By: LIBBY GARCIA MD Signed On:24-MAR-2014 09:51:52 Your Allergies & Intolerances Substance Reaction Symptoms [...] Your Upcoming Appointments Date Time Location Provider 03/24/2014 10:30 [facility] Mammo [facility] Room 1 Attention: Contact your local Clinic if further appointment detail needed. Your Goals/Additional instructions: Source: [facility] POWERCHART Document Id: [id number] Miscellaneous - Libby Garcia M.D. - 03/24/2014 9:51 AM CDT Ambulatory Discharge Medication List [facility] [address] [place] [phone] Visit Information Name: YARELIS MORENO [facility] Number: [id number] Visit Date: 03/24/2014 09:51:56 Attending Provider: LIBBY GARCIA MD Primary Care Provider: LIBBY GARCIA MD YARELIS MORENO has been given the [...] day as needed for Irritable bowel symptoms Misc Prescription (Misc Prescription) Pro biotics daily multivitamin with minerals (Vitamin D with Minerals oral tablet) 1 Tablet(s), Oral, once a day sertraline (Zoloft 100 mg oral tablet) 1 Tablet(s), Oral, once a day simvastatin (simvastatin 20 mg oral tablet) 1 Tablet(s), Oral, once a day (at bedtime) [facility] [address] [place] [address] Stop Taking the Following Medications: Medication list as of 03-24-14 09:51 Attention: If you have any medications at [...] Electronically Signed By: LIBBY GARCIA MD Signed On:24-MAR-2014 09:51:52 Additional Information: Source: [facility] POWERCHART Document Id: [id number] Miscellaneous - Ami Marroquin, L.P.N. - 03/24/2014 9:17 AM CDT Adult Veneer Trimmer Intake/History Adult Veneer Trimmer Intake/History Entered On: 03/24/2014 9:21 CDT Performed On: 03/24/2014 9:17 CDT by AMI MARROQUIN Intake Chief Complaint : physical Temperature Core : 36.1 DegC(Converted to: 97.0 DegF) (LOW) Peripheral Pulse Rate : 76 /min Respiratory Rate : 20 /min Systolic Blood Pressure : 102 mmHg Diastolic Blood Pressure : 62 mmHg NIBP Mean : 75 mmHg BP Location : Right upper extremity Blood Pressure Cuff Size : Regular Height : 167.5 cm(Converted to: 5 ft 6 inch(es), 66 inch(es)) Actual Weight : 73.3 kg(Converted to: 161 lb 10 oz) Dosing Weight Clinic : 73.3 kg Clinic BSA : 1.85 Body Mass Index : 26.13 kg/m2 AMI MARROQUIN - 03/24/2014 9:17 CDT General Info Information Given By : Patient Languages : Belizean Is Patient Female and 13-50 no hysterectomy : No AMI MARROQUIN - 03/24/2014 9:17 CDT Subjective Pain Symptoms : No AMI MARROQUIN - 03/24/2014 9:17 CDT Dependent Habits Tobacco Use/Currently Using : No Exposure to Tobacco Smoke : Other: former Smoking Status : Former smoker CARA AMI Pickett - 03/24/2014 9:17 CDT Source: [facility] POWERCHART Document Id: [id number] CDT!26 documented in this encounter Plan of Treatment Not on filedocumented as of this encounter Procedures Procedure Name Priority Date/Time Associated Comments Diagnosis LIPID PANEL, S Routine 03/24/2014 10:55 AM Result s for this CDT procedure are i n the results section. GLUCOSE, P Routine 03/24/2014 10:55 AM Results for this CDT procedure are i n the results section. CREATININE WITH Routine 03/24/2014 10:55 AM Resul ts for this EGFR, S/P CDT procedure are i n the results section. PATHOLOGY CONVENTIONAL M[employer]GAGE UNDERWRITER Routine 03/24/2014 12:00 AM Results for this CYTOLOGY CDT procedure are i n the results section. documented in this encounter Results Glucose (03/24/2014 10:55 AM CDT) athologist Signature Glucose 84 70 - 139 POWERCHART MGDL Specimen (Source) Anatomical Collection Method Collection Time Re ceived Time Location / / Volume Laterality Blood 03/24/2014 10:55 AM CDT Libby Garcia M.D. LAB BLOOD ADD-ON Performing Organization Address City/State/ZIP Code Phon e Number POWERCHART Creatinine with eGFR (03/24/2014 10:55 AM CDT) athologist Signature Creatinine, S 0.7 0.6 - 1.1 POWERCHART MGDL HXeGFR (MDRD) >60 >=60 POWERCHART [id number] eGFR >60 >=60 POWERCHART Black/ [id number] Greenlandic Specimen (Source) Anatomical Collection Method Collection Time Re ceived Time Location / / Volume Laterality Blood 03/24/2014 10:55 AM CDT Libby Garcia M.D. LAB BLOOD ADD-ON Performing Organization Address City/State/ZIP Code Phon e Number POWERCHART (ABNORMAL) Lipid Panel (03/24/2014 10:55 AM CDT) Patholo gist Method Time Signature Calculated LDL 95 0 - 100 POWERCHART MGDL Total 2.36 2.20 - POWERCHART Cholesterol/HDL 4.40 Ratio Cholesterol, Total 196 <=200 MGDL POWERCHART HX HDL 83 (H) 40 - 60 POWERCHART MGDL Triglycerides 90 <=150 MGDL POWERCHART HXLDL/HDL 1 POWERCHART Specimen (Source) Anatomical Collection Method Collection Time Re ceived Time Location / / Volume Laterality Blood 03/24/2014 10:55 AM CDT Libby Garcia M.D. LAB BLOOD ADD-ON Performing Organization Address City/State/ZIP Code Phon e Number POWERCHART Pathology CONVENTIONAL MORTGAGE UNDERWRITER Cytology (03/24/2014 12:00 AM CDT) Specimen (Source) Anatomical Location Collection Method / Collectio n Time Received Time / Laterality Volume 03/24/2014 Narrative [facility] - 03/30/2014 1:37 PM CDT [facility] in [place] [address] ??[id number] Patient Name: YARELIS MORENO Patient ID #: [id number] Collected: 03/24/2014 Address: City/State/Zip: [address] [place] [address] ??[phone] Received: Reported: 03/25/2014 03/30/2014 Soc. Sec. #: ?/Age/Sex 1950 (Age: 63) ??F Physician(s): JACQUELINE GARCIA MD Copy To: ? [facility] ?? [id number] [address] [facility], ??[place] ??[address] CYTOPATHOLOGY CONVENTIONAL MORTGAGE UNDERWRITER REPORT FINAL CYTOLOGIC DIAGNOSIS Pap Smear - ThinPrep: NEGATIVE FOR INTRAEPITHELIAL LESION OR MALIGNANCY PRESENCE OR ABSENCE OF ENDOCERVICAL COMP ONENT CANNOT BE DETERMINED DUE TO ATROPHY. SATISFACTORY SPECIMEN FOR EVALUATION. Electronically Signed Out By trista/03/30/2014 JAQUELINE SEPULVEDA(ASCP) The Pap test is a screening procedure an d, as such, is subject to both false positive and false negative results as evidenced by published data. ??It is not a diagnostic test and results should be inter preted in the context of the patient's h istory and other clinical findings. ??Obtaining per iodic Pap tests may help to minimize the consequences of any false negatives that may occur. SPECIMEN(S) RECEIVED: Pap Smear - ThinPrep CLINICAL HISTORY: Date of Last PAP: 2011 Menstrual History: Postmenopausal Other Clinical Conditions: HPV TYPING REQUESTED: IF ASCUS Libby Garcia M.D. LAB PAP COPATH ORDERABLES Performing Organization Address City/State/ZIP Code Phon e Number [facility] documented in this encounter Visit Diagnoses Not on filedocumented in this encounter Additional Health Concerns Assessment Noted Time PHQ-9 Depression Total Score: 2 02/19/2014 2:58 PM CDT documented as of this encounter
--- OUTSIDE RECORDS SUMMARY | 2022-01-18 13:31 | XMS_ITS | Encounter Summary ---
:1950 Author Organization [facility] Address [address] [place] [address] Care Team Providers Name Role Phone Unavailable Primary Care Provider Unavailable Encounter Details Date Type Department Care Team Description 04/24/2015 Hospital Encounter HX [facility] Min Roman, URGENTCAR P.A.-C. [address] , [facility] [address] [place] [address] (Wo rk) Social History Tobacco Use Types Packs/Day Years Used Date Smoking Tobacco: Never Assessed Sex Assigned at Date Recorded Female 07/31/2018 2:58 PM PROGRAM STRATEGIST documented as of this encounter Last Filed Vital Signs Vital Sign Reading Time Taken Comments Blood Pressure 114/70 04/24/2015 3:23 PM PROGRAM STRATEGIST Pulse 68 04/24/2015 3:23 PM PROGRAM STRATEGIST Temperature - - Respiratory Rate 18 04/24/2015 3:23 PM PROGRAM STRATEGIST Oxygen Saturation - - Inhaled Oxygen Concentration - - Weight 73.4 kg (161 lb 13.1 oz) 04/24/2015 3:23 PM PROGRAM STRATEGIST Height 168 cm (5' 6.14) 04/24/2015 3:23 PM PROGRAM STRATEGIST Body Mass Index 26.01 04/24/2015 3:23 PM PROGRAM STRATEGIST documented in this encounter Progress Notes Min Roman, P.A.-C. - 04/24/2015 1:02 PM CST [id number] CHIEF COMPLAINT/REASON FOR VISIT The patient reports she has had itchy throat and runny nose for the last 4 weeks. She reports does not really have a cough, is blowing her nose. No fever. She does not have a history of allergies. VITAL SIGNS Temp 36.7, heart rate 68, respiratory rate 18, blood pressure 114/70. PHYSICAL EXAMINATION GENERAL: Alert and oriented x3, no distress. EENT: Eyes: Nonicteric, noninjected, no discharge. Ears: Tympanic membranes pearly du, no loss of landmarks, erythema, or bulging. Nose: Nasal turbinates slightly pale with clear discharge. Oropharynx: Uvula midline. Tonsils not swollen. No exudate. No erythema back of throat. Some cobblestoning on the back of tongue. NECK: No cervical adenopathy. LUNGS: Bilateral breath sounds clear auscultation. No wheezing, rhonchi or rales. HEART: Regular rate rhythm. IMPRESSION/REPORT/PLAN Allergic rhinitis. PLAN: Discussed using Claritin or Marilin or Zyrtec daily for the next week or two for these symptoms. Also, she can use Flonase [id number] for some rhinitis, this is most likely allergic. Min Roman P.A.-C./oscar Electronically Signed By: MIN ROMAN PA-C On: 04/26/2015 07:33 PM Source: [facility] MHSDOLBEYNONRADSYS Document Id: [id number] RAM STRATEGIST documented in this encounter Miscellaneous Notes Miscellaneous - Min Roman P.A.-C. - 04/24/2015 4:14 PM CST Ambulatory Patient Summary [facility] [address] [place] [id number] Visit Information Name: YARELIS MORENO [facility] Number: [id number] Current Date: 04/24/2015 16:14:51 Physicians Attending Provider: MIN ROMAN PA-C Primary Care Provider: PCP, ELSEWHERE ARMOND MORENOYL has been given the following list of [...] day as needed for Irritable bowel symptoms *multivitamin with minerals (Vitamin D with Minerals oral [...] the Following Medications: Medication list as of 04-24-15 16:14 Attention: If you have any medications at home that are not on this list, DO NOT take them until youcontact your provider for clarification. Give a copy of your medication list to your primary care provider. Update your medication list any time medications or doses are changed and carry your medication list at all times in case of emergency. Electronically Signed By: MIN ROMAN PA-C Signed On:24-APR-2015 16:14:44 Your Allergies & Intolerances Substance Reaction Symptoms [...] if you dont have one. Go to [email or web address] and click on Create Your Account. Then, follow the directions to complete the online form. Youll be asked for your [facility] number which you can find at the top of this document. Your Goals/Additional instructions: Source: [facility] POWERCHART Document Id: [id number] RAM STRATEGIST Miscellaneous - Min Roman P.A.-C. - 04/24/2015 4:14 PM CST Ambulatory Discharge Medication List [facility] [address] [place] [id number] Visit Information Name: YARELIS MORENO [facility] Number: [id number] Visit Date: 04/24/2015 16:14:49 Attending Provider: MIN ROMAN PA-C Primary Care Provider: PCP, HALLIE MORENOYARELIS has been given the following list of [...] day as needed for Irritable bowel symptoms *multivitamin with minerals (Vitamin D with Minerals oral [...] the Following Medications: Medication list as of 04-24-15 16:14 Attention: If you have any medications at home that are not on this list, DO NOT take them until youcontact your provider for clarification. Give a copy of your medication list to your primary care provider. Update your medication list any time medications or doses are changed and carry your medication list at all times in case of emergency. Electronically Signed By: MIN ROMAN PA-C Signed On:24-APR-2015 16:14:44 Additional Information: Source: [facility] POWERCHART Document Id: [id number] RAM STRATEGIST Miscellaneous - Jeremiah Bailey L.P.N. - 04/24/2015 3:23 PM CST Adult Dry Cleaning Manager Intake/History Adult Dry Cleaning Manager Intake/History Entered On: 04/24/2015 15:28 PROGRAM STRATEGIST Performed On: 04/24/2015 15:23 PROGRAM STRATEGIST by JEREMIAH BAILEY LPN Intake Chief Complaint : cough, ears itchy, throat sore with phlegm, headache and body ache. Onset of Symptoms : on and off for 4 weeks Temperature Oral : 36.7 DegC(Converted to: 98.1 DegF) Peripheral Pulse Rate : 68 /min Respiratory Rate : 18 /min Systolic Blood Pressure : 114 mmHg Diastolic Blood Pressure : 70 mmHg NIBP Mean : 85 mmHg BP Location : Right upper extremity Blood Pressure Cuff Size : Regular SpO2 : 98 % Height : 168 cm(Converted to: 5 ft 6 inch(es), 66 inch(es)) Actual Weight : 73.4 kg(Converted to: 161 lb 13 oz) Dosing Weight Clinic : 73.4 kg Clinic BSA : 1.85 Body Mass Index : 26.01 kg/m2 JEREMIAH BAILEY LPN - 04/24/2015 15:23 PROGRAM STRATEGIST General Info Information Given By : Patient Preferred Communication Mode : Verbal Languages : Wallisian Is Patient Female and 13-50 no hysterectomy : No JEREMIAH BAILEY LPN - 04/24/2015 15:23 PROGRAM STRATEGIST Subjective Pain Symptoms : Yes JEREMIAH BAILEY LPN - 04/24/2015 15:23 PROGRAM STRATEGIST Pain Scale Pain Scale Verbal 0-10 : Open JEREMIAH BAILEY LPN - 04/24/2015 15:23 PROGRAM STRATEGIST Pain Pain Assessment Grid Pain 1 Location : Head JEREMIAH BAILEY LPN - 04/24/2015 15:23 PROGRAM STRATEGIST Dependent Habits Tobacco Use/Currently Using : No Exposure to Tobacco Smoke : Other: former Smoking Status : Former smoker JEREMIAH BAILEY LPN - 04/24/2015 15:23 PROGRAM STRATEGIST Source: [facility] POWERCHART Document Id: [id number] PROGRAM STRATEGIST!35 RAM STRATEGIST documented in this encounter Plan of Treatment Not on filedocumented as of this encounter Visit Diagnoses Not on filedocumented in this encounter Additional Health Concerns Assessment Noted Time PHQ-9 Depression Total Score: 2 02/19/2014 2:58 PM CDT documented as of this encounter
--- OUTSIDE RECORDS SUMMARY | 2022-01-18 13:31 | XMS_ITS | Encounter Summary ---
:1950 Author Organization [facility] Address [address] [place] [address] Care Team Providers Name Role Phone Unavailable Primary Care Provider Unavailable Encounter Details Date Type Department Care Team Description 04/13/2014 Hospital Encounter [facility]X [facility] Prabhu House [facility].D[facility] [address] [facility] [place] [phone] (Wo rk) Social History Tobacco Use Types Packs/Day Years Used Date Smoking Tobacco: Never Assessed Sex Assigned at Date Recorded Female 07/31/2018 2:58 PM BIRD RAISER documented as of this encounter Last Filed Vital Signs Vital Sign Reading Time Taken Comments Blood Pressure 106/64 04/13/2014 11:38 AM BIRD RAISER Pulse 72 04/13/2014 11:38 AM BIRD RAISER Temperature - - Respiratory Rate - - Oxygen Saturation - - Inhaled Oxygen Concentration - - Weight - - Height 168 cm (5' 6.14) 04/13/2014 11:38 AM BIRD RAISER Body Mass Index - - documented in this encounter Consult Notes Evelio House M.D. - 04/13/2014 11:07 AM CST [id number] CHIEF COMPLAINT/REASON FOR VISIT Mouth lesions. HISTORY OF PRESENT ILLNESS Patient is a 63-year-old female seen in consultation at the request of Dr. Stein for a 1-month history of oral mucosal sloughing. This started with soreness of her gums also. She has some desquamation of the mucosal surface throughout the buccal mucosa in her mouth. Also on the roof of the mouth. No history of other problems. History of adenotonsillectomy. Denies dysphagia dysphonia or gastroesophageal reflux. She does note some nasal congestion for 4 years, also postnasal drainage which is thick mucoid and sometimes bloody. She has tried Flonase and this was of no help. Some itching in the ears otherwise no ear symptoms. When the mucosal sloughs there is no underlying erythema, ulcerations or lesions. MEDICATIONS Reviewed in EMR. ALLERGIES None. PAST MEDICAL/SURGICAL HISTORY Per the EMR. She quit smoking 13 years ago. Infrequent alcohol use. PHYSICAL EXAMINATION VITAL SIGNS: Blood pressure 106/64, pulse 72, temp 37 degrees. GENERAL: Healthy appearing adult female. Alert, oriented, no acute distress. HEENT: Vocal quality normal. Respirations unlabored. Ears normal. Nose, external nose is straight. Intranasal exam reveals septal deformity on the right side in area 2, and to the left side at the caudal end in area 1, also in area 4 and along the vomer. Hypertrophy of the right inferior turbinate. Nopolyps or drainage noted. Oral cavity reveals some mild superficial sloughing of the oral mucosa in the buccal aspect on each side. No underlying lesions noted. Underlying mucosa otherwise appears normal. Oropharynx reveals posttonsillectomy otherwise normal appearing. Nasopharynx, indirect nasopharyngoscopy is normal. Throat, indirect laryngoscopy is easily visualized and reveals normal larynx and hypopharynx. Vocal fold mobility is normal to the midline. No lesions noted. NECK: Palpation of the neck is normal without adenopathy or masses. No palpable parotid or thyroid abnormalities. IMPRESSION/REPORT/PLAN 1. Oral lesions with superficial mucosal sloughing. 2. History of alar mucosal soreness. PLAN: Discussed findings with patient. Reassured regarding exam. Unsure why she has a mild sloughingof her oral mucosa. Her gingiva appears normal today. I advised a dental consultation given her history of the associated gingivitis. If she has no answer with them and continues to have problems, would consider second opinion at [facility]. Evelio House M.D./oscar cc: Vonnie Stein M.D. Electronically Signed By: EVELIO HOUSE MD On: 04/22/2014 05:02 PM Source: [facility] MHSDOLBEYNONRADSYS Document Id: [id number] RAISER documented in this encounter Miscellaneous Notes Miscellaneous - Evelio House M.D. - 04/13/2014 3:48 PM CST Ambulatory Patient Summary [facility] [address] [place] [id number] Visit Information Name: YARELIS MORENO [facility] Number: [id number] Current Date: 04/13/2014 15:48:09 Physicians Attending Provider: EVELIO HOUSE MD Primary Care Provider: VONNIE STEIN MD YARELIS MORENO has been given [...] (at bedtime) Stop Taking the Following Medications: Misc Prescription (Misc Prescription) Medication list as of 04-13-14 15:48 Attention: If you have any medications at home that are not on this list, DO NOT take them until youcontact your provider for clarification. Give a copy of your medication list to your primary care provider. Update your medication list any time medications or doses are changed and carry your medication list at all times in case of emergency. Electronically Signed By: EVELIO HOUSE MD Signed On:13-APR-2014 15:48:04 Your Allergies & Intolerances Substance Reaction Symptoms [...] Your Upcoming Appointments Date Time Location Provider 04/20/2014 13:10 [facility] InternCarter Mcfarlane MD, Pineda Mckeon Attention: Contact your local Clinic if further appointment detail needed. Your Goals/Additional instructions: Source: [facility] POWERCHART Document Id: [id number] RAISER Miscellaneous - Evelio House M.D. - 04/13/2014 3:48 PM CST Ambulatory Discharge Medication List [address] [id number] Visit Information Name: YARELIS MORENO [facility] Number: [id number] Visit Date: 04/13/2014 15:48:07 Attending Provider: EVELIO HOUSE MD Primary Care Provider: VONNIE STEIN MD TIFFANIE YARELIS has been given the following list of [...] (at bedtime) Stop Taking the Following Medications: Misc Prescription (Misc Prescription) Medication list as of 04-13-14 15:48 Attention: If you have any medications at home that are not on this list, DO NOT take them until youcontact your provider for clarification. Give a copy of your medication list to your primary care provider. Update your medication list any time medications or doses are changed and carry your medication list at all times in case of emergency. Electronically Signed By: EVELIO HOUSE MD Signed On:13-APR-2014 15:48:04 Additional Information: Source: [facility] POWERCHART Document Id: [id number] RAISER Miscellaneous - Radha Ross R.N. - 04/13/2014 11:38 AM CST Adult Gas Leak Tester Intake/History Adult Gas Leak Tester Intake/History Entered On: 04/13/2014 11:41 BIRD RAISER Performed On: 04/13/2014 11:38 BIRD RAISER by RADHA ROSS Intake Chief Complaint : [place] referral for mouth sores, left neck pain c/o shedding skin in mouth x 3-4 wks, intermittent sore gums and roof of mouth pain, chronic sinuscongestion x 4 yrs, occasional ears itch, sore throat x 1 yr Temperature Core : 37.0 DegC(Converted to: 98.6 DegF) Peripheral Pulse Rate : 72 /min Systolic Blood Pressure : 106 mmHg Diastolic Blood Pressure : 64 mmHg NIBP Mean : 78 mmHg BP Location : Right upper extremity Blood Pressure Cuff Size : Regular Height : 168 cm(Converted to: 5 ft 6 inch(es), 66 inch(es)) RADHA ROSS - 04/13/2014 11:38 BIRD RAISER General Info Information Given By : Patient Preferred Communication Mode : Verbal Languages : Azerbaijani Is Patient Female and 13-50 no hysterectomy : No RADHA ROSS - 04/13/2014 11:38 BIRD RAISER Subjective Pain Symptoms : No RADHA ROSS - 04/13/2014 11:38 BIRD RAISER Dependent Habits Tobacco Use/Currently Using : No Exposure to Tobacco Smoke : Other: former Smoking Status : Former smoker RADHA ROSS - 04/13/2014 11:38 BIRD RAISER Tobacco Use Grid Last Use : 2000 RADHA ROSS - 04/13/2014 11:38 BIRD RAISER ID Screen Travel Within Last 21 Days : No RADHA ROSS 04/13/2014 11:38 BIRD RAISER Source: [facility] Massive Document Id: [id number] BIRD RAISER!27 RAISER documented in this encounter Plan of Treatment Not on filedocumented as of this encounter Visit Diagnoses Not on filedocumented in this encounter Additional Health Concerns Assessment Noted Time PHQ-9 Depression Total Score: 2 02/19/2014 2:58 PM CDT documented as of this encounter
--- OUTSIDE RECORDS SUMMARY | 2022-01-18 13:31 | XMS_ITS | Encounter Summary ---
:1950 Author Organization [facility] Address [address] [place] [address] Care Team Providers Name Role Phone Unavailable Primary Care Provider Unavailable Encounter Details Date Type Department Care Team Description 03/09/2014 Historical Ophthalmology [facility] Juan Deluca Jr., M.D. [address] [place], [place] [phone] (Wo rk) Social History Tobacco Use Types Packs/Day Years Used Date Smoking Tobacco: Never Assessed Sex Assigned at Date Recorded Female 07/31/2018 2:58 PM PRODUCTION CORRUGATOR documented as of this encounter Progress Notes Juan Deluca M.D. - 03/09/2014 10:52 AM CDT Eye General CHIEF COMPLAINT CE IMPRESSION / REPORT / PLAN A) Pseudophakia ou, doing well P) RTO 1 year, MR CDM Reports - EYEGEN Id: [id number] Status: Fnl documented in this encounter Plan of Treatment Not on filedocumented as of this encounter Visit Diagnoses Not on filedocumented in this encounter Additional Health Concerns Assessment Noted Time PHQ-9 Depression Total Score: 2 02/19/2014 2:58 PM CDT documented as of this encounter
--- OUTSIDE RECORDS SUMMARY | 2022-01-18 13:31 | XMS_ITS | Encounter Summary ---
:1950 Author Organization [facility] Address [address] [place] [address] Care Team Providers Name Role Phone Unavailable Primary Care Provider Unavailable Encounter Details Date Type Department Care Team Description 04/27/2014 Hospital Encounter [facility] Melissa Pizarro M.D. 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 - 04/27/2014 12:26 PM CST [id number] CHIEF COMPLAINT/REASON FOR VISIT A 63-year-old female with a slightly whitish fussy tongue this morning, also noticing some bumps on the back of her tongue. No other specific concerns or problems. VITAL SIGNS Per EMR. PHYSICAL EXAMINATION OROPHARYNX: The back of the tongue looks pretty normal to me. There does not appear to be any inflammation or anything else unusual there in the papillae of the tongue. There is some mild thrush like buildup in the mid tongue anteriorly. No other unusual problems noted around the oropharynx. Posteriororopharynx is clear, otherwise. IMPRESSION/REPORT/PLAN Probable thrush. Nystatin rinse and swallow. Follow up as needed, if not improving or if other concerns, or problems. Henry Pizarro M.D./oscar Electronically Signed By: HENRY PIZARRO MD On: 04/30/2014 06:08 PM Source: [facility] MHSDOLBEYNONRADSYS Document Id: [id number] TER OPERATOR documented in this encounter Miscellaneous Notes Miscellaneous - Henry Pizarro M.D. - 04/27/2014 1:29 PM CST Ambulatory Patient Summary [address] [id number] Visit Information Name: YARELIS MORENO [facility] Number: [id number] Current Date: 04/27/2014 13:29:16 Physicians Attending Provider: UNKNOWN1, PROVIDER Primary Care Provider: LIBBY STEIN MD TIFFANIEARMONDYL has been given the following list of [...] tablet) 1 Tablet(s), Oral, once a day nystatin (nystatin 100,000 units/mL oral suspension) 5 Milliliter, Oral, four times a day x 7 day(s)New Routed to [address] [address] sertraline (Zoloft 100 mg oral tablet) 1 Tablet(s), Oral, once a day simvastatin (simvastatin 20 mg oral tablet) 1 Tablet(s), Oral, once a day (at bedtime) Stop Taking the Following Medications: Medication list as of 04-27-14 13:29 Attention: If you have any medications at home that are not on this list, DO NOT take them until youcontact your provider for clarification. Give a copy of your medication list to your primary care provider. Update your medication list any time medications or doses are changed and carry your medication list at all times in case of emergency. Electronically Signed By: HENRY PIZARRO MD Signed On:27-APR-2014 13:27:23 Your Allergies & Intolerances Substance Reaction Symptoms [...] local Clinic if further appointment detail needed. Oral Thrush Oral thrush is a yeast infection that affects the mouth. It causes creamy white patches to form on the tongue or inner cheeks. These patches can be painful and may bleed. Babies with thrush are often fussy and may have trouble feeding. Thrush is seldom serious in healthy children and adults. Risk Factors Thrush is common in infants and toddlers. Babies sometimes pass the infection to their mothers. You are also likely to develop thrush if you: ?? Take antibiotics, steroid medications, or control pills. ?? Have diabetes or HIV (the virus that causes AIDS). ?? Are . ?? Use oral steroid inhalers. When to Go to the Emergency Room (ER) In most cases, thrush isn't a medical emergency. Call your casino accountant if your baby develops symptoms of thrush. Teens and adults should see their healthcare provider. If symptoms are severe, seek emergency care if you can't reach your doctor. To help prevent thrush in adults: Add unsweetened yogurt to your diet when taking antibiotics. Treatvaginal yeast infections right away. See your dentist every 6 to 12 months. [place] and floss as oftenas your dentist suggests. Rinse your mouth and spit after using a steroid inhaler. What to Expect in the ER The affected mouth and throat will be examined. A tongue blade may be used to scrape the mouth and take a sample to check for the yeast that causes thrush. Healthy infants with mild thrush may not needany treatment. More severe cases are likely to be treated with a liquid antifungal medication. Olderchildren and adults may receive the same medication in tablet or lozenge form. ?? [id number] [facility], [address] [place] [address]. All rights reserved. This information is not intended as a substitute for professional medical care. Always follow your healthcare professional's instructions. Your Goals/Additional instructions: This document has images extracted. Please consider using [employer] for all your patient education needs. Source: [facility] POWERCHART Document Id: [id number] TER OPERATOR Miscellaneous - Henry Pizarro M.D. - 04/27/2014 1:29 PM CST Ambulatory Discharge Medication List [address] [id number] Visit Information Name: YARELIS MORENO [facility] Number: [id number] Visit Date: 04/27/2014 13:29:14 Attending Provider: UNKNOWN1, PROVIDER Primary Care Provider: LIBBY STEIN MD TIFFANIEARMONDYL has been given the following list of [...] tablet) 1 Tablet(s), Oral, once a day nystatin (nystatin 100,000 units/mL oral suspension) 5 Milliliter, Oral, four times a day x 7 day(s)New Routed to [address] [address] sertraline (Zoloft 100 mg oral tablet) 1 Tablet(s), Oral, once a day simvastatin (simvastatin 20 mg oral tablet) 1 Tablet(s), Oral, once a day (at bedtime) Stop Taking the Following Medications: Medication list as of 04-27-14 13:29 Attention: If you have any medications at home that are not on this list, DO NOT take them until youcontact your provider for clarification. Give a copy of your medication list to your primary care provider. Update your medication list any time medications or doses are changed and carry your medication list at all times in case of emergency. Electronically Signed By: HENRY PIZARRO MD Signed On:27-APR-2014 13:27:23 Additional Information: Source: [facility] POWERCHART Document Id: [id number] TER OPERATOR Miscellaneous - Jagruti Deshpande, L.P.N. - 04/27/2014 1:18 PM CST Adult Ordnance Handler Intake/History Adult Ordnance Handler Intake/History Entered On: 04/27/2014 13:21 TOASTER OPERATOR Performed On: 04/27/2014 13:18 TOASTER OPERATOR by JAGRUTI DESHPANDE Intake Chief Complaint : Tongue was white and fuzzy looking this morning. Has also noticed some bumps on the back of tongue. Onset of Symptoms : Symptoms began today Temperature Oral : 36.8 DegC(Converted to: 98.2 DegF) Peripheral Pulse Rate : 72 /min Respiratory Rate : 20 /min Systolic Blood Pressure : 100 mmHg Diastolic Blood Pressure : 66 mmHg NIBP Mean : 77 mmHg BP Location : Right upper extremity Blood Pressure Cuff Size : Large Actual Weight : 74.2 kg(Converted to: 163 lb 9 oz) Dosing Weight Clinic : 74.2 kg JAGRUTI DESHPANDE - 04/27/2014 13:18 TOASTER OPERATOR General Info Information Given By : Patient Preferred Communication Mode : Verbal Languages : Guyanese Is Patient Female and 13-50 no hysterectomy : No JAGRUTI DESHPANDE 04/27/2014 13:18 TOASTER OPERATOR Subjective Pain Symptoms : No JAGRUTI DESHPANDE 04/27/2014 13:18 TOASTER OPERATOR Dependent Habits Tobacco Use/Currently Using : No Exposure to Tobacco Smoke : Other: former Smoking Status : Former smoker JAGRUTI DESHPANDE 04/27/2014 13:18 TOASTER OPERATOR Tobacco Use Grid Last Use : 2000 JAGRUTI DESHPANDE 04/27/2014 13:18 TOASTER OPERATOR ID Screen Travel Within Last 21 Days : No JAGRUTI DESHPANDE 04/27/2014 13:18 TOASTER OPERATOR Source: [facility] [employer] Document Id: [id number] TOASTER OPERATOR!30 TER OPERATOR documented in this encounter Plan of Treatment Not on filedocumented as of this encounter Visit Diagnoses Not on filedocumented in this encounter Additional Health Concerns Assessment Noted Time PHQ-9 Depression Total Score: 2 02/19/2014 2:58 PM CDT documented as of this encounter
--- OUTSIDE RECORDS SUMMARY | 2022-01-18 13:31 | XMS_ITS | Encounter Summary ---
:1950 Author Organization [facility] Address [address] [place] [address] Care Team Providers Name Role Phone Unavailable Primary Care Provider Unavailable Encounter Details Date Type Department Care Team Description 12/02/2009 Hospital Encounter HX [facility] Juan Oneill Jr., M.D. 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
--- OUTSIDE RECORDS SUMMARY | 2022-01-18 13:31 | XMS_ITS | Encounter Summary ---
:1950 Author Organization [facility] Address [address] [place] [address] Care Team Providers Name Role Phone Unavailable Primary Care Provider Unavailable Encounter Details Date Type Department Care Team Description 09/04/2014 Hospital Encounter [facility] Ferny Reese P.A. -C. 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 HISTORY OF PRESENT ILLNESS The patient states that in the past 6 to 8 weeks. Patient has had have perception that her urine hasbeen foul smelling. She denied any vaginal discharge. She denied any dysuria or frequency or urgencywith urination. Patient states that on occasion, she would she would act as she described to me, still some of the urine into her underwear she is not sexually active. She had a pack carried 1 child denied any noticing any prolapse denied any other concerns or problems. She denies any abdominal pain. Like flank aches denied any vomiting or nausea. She does not have a history of frequent urinary tract infections. She declines the vaginal evaluation today. VITAL SIGNS Please refer to EMR. MEDICATIONS Please refer to EMR. ALLERGIES Please refer to EMR. PHYSICAL EXAMINATION GENERAL: This is a pleasant 63-year-old female, in no appreciable distress. Alert, awake, responds appropriately to visual stimuli. LUNGS: Clear. ABDOMEN: Soft, not tender. No appreciable organomegaly. No CVA tenderness. No rebound tenderness. Noguarding noted. DIAGNOSTICS Urinalysis was performed. It did appear to be grossly negative with only occasional white cells and occasional red cells in the urine. IMPRESSION/REPORT/PLAN Malodorous urine. PLAN: We did offer pelvic evaluation for the patient. She declined. She would like it to be done by her primary care provider. I did recommend aggressive hydration, rest. I did recommend recheck with the primary care provider, earliest convenience. Cor. Continued evaluation I did recommend to call if there are any concerns or problems. She is comfortable with this plan. I did answer all the questions. Ferny Reese P.A.-C/oscar Electronically Signed By: FERNY REESE V [facility] On: 09/05/2014 01:51 PM Source: [facility] MHSDOLBEYNONRADSYS Document Id: [id number] documented in this encounter Miscellaneous Notes Miscellaneous - Ferny Reese - 09/04/2014 3:17 PM CDT Ambulatory Patient Summary [facility] [address] [place], [place] [id number] Visit Information Name: CARYL MORENO [facility] Number: [id number] Current Date: 09/04/2014 15:17:13 Physicians Attending Provider: FERNY REESE Primary Care Provider: LIBBY STEIN MD CARYL MORENO has been given [...] the Following Medications: Medication list as of 09-04-14 15:17 Attention: If you have any medications at [...] emergency. Electronically Signed By: FERNY REESE Signed On:04-SEP-2014 15:17:07 Your Allergies & Intolerances Substance Reaction Symptoms [...] Your Upcoming Appointments Date Time Location Provider 09/09/2014 13:00 [facility] Rachelle Oneill CNP Attention: Contact your local Clinic if further appointment detail needed. Your Goals/Additional instructions: Source: [facility] POWERCHART Document Id: [id number] Miscellaneous - Ferny Reese - 09/04/2014 3:17 PM CDT Ambulatory Discharge Medication List [facility] [address] [place] [id number] Visit Information Name: CARYL MORENO [facility] Number: [id number] Visit Date: 09/04/2014 15:17:12 Attending Provider: FERNY REESE Primary Care Provider: LIBBY STEIN MD CARYL MORENO has been given [...] the Following Medications: Medication list as of 09-04-14 15:17 Attention: If you have any medications at [...] emergency. Electronically Signed By: FERNY REESE Signed On:04-SEP-2014 15:17:07 Additional Information: Source: [facility] AiMeiWeiCHART Document Id: [id number] Miscellaneous - Raulito Olivares R.N. - 09/04/2014 10:37 AM CDT Adult Proof Reader Intake/History Adult Proof Reader Intake/History Entered On: 09/04/2014 10:40 CDT Performed On: 09/04/2014 10:37 CDT by RAULITO CHRISTIE Intake Chief Complaint : UTI,oderous, Onset of Symptoms : 6 weeks ago Temperature Oral : 37.1 DegC(Converted to: 98.8 DegF) Peripheral Pulse Rate : 72 /min Respiratory Rate : 18 /min Systolic Blood Pressure : 99 mmHg Diastolic Blood Pressure : 62 mmHg NIBP Mean : 74 mmHg BP Location : Right upper extremity Blood Pressure Cuff Size : Large Actual Weight : 75.2 kg(Converted to: 165 lb 13 oz) Weight Source : Standing scale Dosing Weight Clinic : 75.2 kg RAULITO CHRISTIE - 09/04/2014 10:37 CDT General Info Information Given By : Patient Preferred Communication Mode : Verbal Languages : Azeri Is Patient Female and 13-50 no hysterectomy : RAULITO Ball - 09/04/2014 10:37 CDT Subjective Pain Symptoms : RAULITO Ball - 09/04/2014 10:37 CDT Dependent Habits Tobacco Use/Currently Using : No Exposure to Tobacco Smoke : Other: former Smoking Status : Former smoker RAULITO CHRISTIE - 09/04/2014 10:37 CDT Tobacco Use Grid Last Use : 2000 RAULITO CHRISTIE - 09/04/2014 10:37 CDT ID Screen Travel Within Last 21 Days : No Contact with someone with Ebola : RAULITO Ball - 09/04/2014 10:37 CDT Source: [facility] POWERCHART Document Id: [id number] CDT!32 documented in this encounter Plan of Treatment Not on filedocumented as of this encounter Procedures Procedure Name Priority Date/Time Associated Diagnosis Comme nts URINALYSIS, Routine 09/04/2014 10:36 AM Results for this MIDSTREAM, WITH CDT procedure ar e in CULTURE IF the results INDICATED section. documented in this encounter Results (ABNORMAL) Urinalysis, Midstream, with culture if indicated (09/04/2014 10:36 AM CDT) [facility] gist Method Time Signature HXUR WBC. Occ-3 None Seen POWERCHART HPF HXUR RBC. Occ-2 None Seen POWERCHART HPF Squamous Occ-3 (A) None Seen POWERCHART Epithelial HPF HXUr Color STRAW POWERCHART Clarity Clear Clear POWERCHART Glucose Negative Negative POWERCHART HXBILIRUBIN Negative Negative POWERCHART Ketones, QL(U) Negative Negative POWERCHART Specific 1.015 POWERCHART [place], POCT, U pH, POCT, Urine 6.0 <5.0 POWERCHART Protein, Ur, Dip Negative Negative POWERCHART Urobilinogen 0.2 0.2 MGDL POWERCHART HXNITRITE Negative Negative POWERCHART HXBLOOD Negative Negative POWERCHART Leukocyte Negative Negative POWERCHART Esterase Specimen (Source) Anatomical Collection Method Collection Time Re ceived Time Location / / Volume Laterality Urine, First 09/04/2014 10:36 Voided AM CDT Sammy Ashton M.D. LAB URINE ORDERABLES Performing Organization Address City/State/ZIP Code Phon e Number POWERCHART documented in this encounter Visit Diagnoses Not on filedocumented in this encounter Additional Health Concerns Assessment Noted Time PHQ-9 Depression Total Score: 2 02/19/2014 2:58 PM CDT documented as of this encounter
--- OUTSIDE RECORDS SUMMARY | 2022-01-18 13:31 | XMS_ITS | Encounter Summary ---
:1950 Author Organization [facility] Address [address] [place] [address] Care Team Providers Name Role Phone Unavailable Primary Care Provider Unavailable Encounter Details Date Type Department Care Team Description 01/30/2016 Hospital Encounter HX NO MAPPING Cyndy Holcomb M.D. 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
--- OUTSIDE RECORDS SUMMARY | 2022-01-18 13:31 | XMS_ITS | Encounter Summary ---
:1950 Author Organization [facility] Address [address] [place] [address] Care Team Providers Name Role Phone Unavailable Primary Care Provider Unavailable Encounter Details Date Type Department Care Team Description 10/28/2013 Hospital Encounter HX [facility] Mihaela Adler M.D. 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 - 10/28/2013 9:30 AM CDT Procedure Documentation Procedure Documentation Entered On: 10/28/2013 10:14 CDT Performed On: 10/28/2013 9:30 CDT by KENZIE STRONG RN Checklist Ambulatory Procedure : Left thyroid FNA KENZIE STRONG RN - 10/28/2013 9:30 CDT Amb/Home Prep Complete Procedure/Site Verified by Allied Health Staff : Yes Procedure/Site Verified by Nurse : Yes Procedure/Site Verified by Provider : Yes Procedure/Site Verified by Patient/Family : Yes Relevant Documentation/Images : Yes Surgical/Procedure Consent Signed : Yes KENZIE STRONG RN - 10/28/2013 9:30 CDT Pain Symptoms : No Procedure Site Prepped With : ChloraPrep KENZIE STRONG RN - 10/28/2013 9:30 CDT Preprocedural Pause Correct Patient Identity : Patient verbalizes self, Patient verbalizes Correct Procedure Site and Side : Left thyroid FNA Correct Procedure Site/Side Verified By : Patient/responsible constitution party, Nurse, MD, Allied Health Staff Site Marking : Yes Pre-Procedure Pause Verbal Confirm. of : Procedure, Site, Side, Patient ID Preprocedural Pause : 9:47 CREW FOREMAN Start Time : 9:47 CREW FOREMAN KENZIE STRONG RN - 10/28/2013 9:30 CDT Postprocedure Procedure Tolerance : Good End Time : 10:14 CREW FOREMAN Procedure/Specimen(s) Sent to Lab : Yes Follow Up Care Given : Yes KENZIE STRONG RN - 10/28/2013 9:30 CDT Procedure Education Ambulatory Procedure Education Grid Procedure Type : Thyroid US and FNA KENZIE STRONG RN - 10/28/2013 9:30 CDT Advance Directive Advanced Directives : No KENZIE STRONG RN - 10/28/2013 9:30 CDT Source: [facility] [employer] Document Id: [id number]!31 documented in this encounter Plan of Treatment Not on filedocumented as of this encounter Procedures Procedure Name Priority Date/Time Associated Comments Diagnosis US THYROID FINE Routine 10/28/2013 9:38 AM Result s for this NEEDLE ASPIRATION CDT procedure are in WITH IMAGING the results GUIDANCE section. documented in this encounter Results US Thyroid Fine Needle Aspiration with Imaging Guidance (10/28/2013 9:38 AM CDT) Anatomical Region Laterality Modality Thyroid N/A Ultrasound Specimen (Source) Anatomical Collection Method Collection Time Re ceived Time Location / / Volume Laterality 10/28/2013 9:38 AM CDT Addenda Addendum by Provider, Leydi Awan 10/28/2013 9:38 AM CDT RAD^^^OW US Guided Thyroid Fine Needle Aspiration 10/28/2013 09:38:31 Impressions 10/28/2013 10:24 AM CDT 1. Fine-needle aspiration of the 9 x 8 x 4 mm nodule in the left midpole . Narrative 10/28/2013 10:24 AM CDT EXAM: US Guided Thyroid Fine Needle Aspi ration INDICATION: FNA of left thyroid nodule AGE: 63 years-old COMPARISON: Ultrasound 09/30/13 FINDINGS: Using sterile technique, ultrasound guid ance, and local 1% lidocaine injection, fine needle aspiration of ??9 x 8 x 4 mm nodule in the left midpole ??was performed. A total of 6 pa sses utilizing 25-gauge needles were used to obtain FNA specimen s. ??Pathology specimens were sent, and pathology results are pending at the time ??of dictation. No complications. Images were archived f or documentation. INFORMED CONSENT: Patient seen, evaluate d, and history reviewed. Discussed risks, benefits, alternatives for procedure, and obtained informed consent. ??Risks discussed incl uded but were not limited to infection, bleeding, and failure to reli frank pain. ??We discussed risk of pathology diagnosis of indeterminate or insufficient specimen collection. We discussed the possible ne ed to repeat procedure. Patient understands ??information and qu estions answered. ??Immediately prior to starting ??the procedure, in th e presence of the assisting personnel, procedural ??pause was conduc anastasiya to verify correct patient identity and verification of procedure t o be performed, and as applicable, correct ??side and site, cor rect patient position, availability of implants, ??special equi pment, or special requirements, and all image and ??specim en identification data. During this procedure the [place] ??Pr otocol was utilized. The patient's identity was confirmed by no ? ?less than two patient identifiers, correct procedure was verif ied, ??correct site was verified and marked as applicable and a final pause ??was completed. Procedure Note Kobe Dominguez M.D. / ProviderEmperatriz M.D. - 10/20/2016 EXAM: US Guided Thyroid Fine Needle Aspi ration INDICATION: FNA of left thyroid nodule AGE: 63 years-old COMPARISON: Ultrasound 09/30/13 FINDINGS: Using sterile technique, ultrasound guid ance, and local 1% lidocaine injection, fine needle aspiration of 9 x 8 x 4 mm nodule in the left midpole was performed. A total of 6 pass es utilizing 25-gauge needles were used to obtain FNA specimen s. Pathology specimens were sent, and pathology results are pending at the time of dictation. No complications. Images were archived f or documentation. INFORMED CONSENT: Patient seen, evaluate d, and history reviewed. Discussed risks, benefits, alternatives for procedure, and obtained informed consent. Risks discussed includ ed but were not limited to infection, bleeding, and failure to reli frank pain. We discussed risk of pathology diagnosis of indeterminate or insufficient specimen collection. We discussed the possible ne ed to repeat procedure. Patient understands information and ques tions answered. Immediately prior to starting the procedure, in the presence of the assisting personnel, procedural pause was conducte d to verify correct patient identity and verification of procedure t o be performed, and as applicable, correct side and site, corre ct patient position, availability of implants, special equipm ent, or special requirements, and all image and specimen identification data. During this procedure the [place] Prot ocol was utilized. The patient's identity was confirmed by no l ess than two patient identifiers, correct procedure was verif ied, correct site was verified and marked as applicable and a final pause was completed. IMPRESSION: 1. Fine-needle aspiration of the 9 x 8 x 4 mm nodule in the left midpole . Dipti Fournier R.V.T., MecheSYvonne IMG US PROCEDURES documented in this encounter Visit Diagnoses Not on filedocumented in this encounter Additional Health Concerns Assessment Noted Time PHQ-9 Depression Total Score: 3 06/30/2013 3:21 PM CREW FOREMAN documented as of this encounter
--- OUTSIDE RECORDS SUMMARY | 2022-01-18 13:31 | XMS_ITS | Encounter Summary ---
:1950 Author Organization [facility] Address [address] [place] [address] Care Team Providers Name Role Phone Unavailable Primary Care Provider Unavailable Encounter Details Date Type Department Care Team Description 03/09/2014 Hospital Encounter HX [facility] Juan Gooden Jr., M.D. 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 - 03/09/2014 10:37 AM CDT [id number] The documentation for this visit is available in [employer] IMPRESSION/REPORT/PLAN A) Pseudophakia ou, doing well P) RTO 1 year, MR Juan Soto M.D./hrf Electronically Signed By: JUAN SOTO MD On: 03/16/2014 11:34 AM Source: [facility] [email or web address] Document Id: [id number] documented in this encounter Miscellaneous Notes Miscellaneous - Juan Soto M.D. - 03/09/2014 11:45 AM CDT Ambulatory Patient Summary [facility] [address] [place], [place] [id number] Visit Information Name: YARELIS MORENO [facility] Number: [id number] Current Date: 03/09/2014 11:45:30 Physicians Attending Provider: JUAN SOTO MD Primary Care Provider: VONNIE STEIN MD [...] the Following Medications: Medication list as of 03-09-14 11:45 Attention: If you have any medications at home that are not on this list, DO NOT take them until youcontact your provider for clarification. Give a copy of your medication list to your primary care provider. Update your medication list any time medications or doses are changed and carry your medication list at all times in case of emergency. Electronically Signed By: JUAN SOTO MD Signed On:09-MAR-2014 11:45:26 Your Allergies & Intolerances Substance Reaction Symptoms Category Comments No Known Allergies Your Problem List Problem Status Onset Comments Irritable bowel syndrome (IBS) Active Cervical Spondylosis without Myelopathy Active Hyperlipidemia Active Dysthymic Disorder (300.4) Active Tinnitus, Unspecified Active Seborrheic dermatitis NOS Active Hyperplastic polyp Active Osteopenia* Active Goiter Multinodular Nontoxic Active Cold Common Active Your Upcoming Appointments Date Time Location Provider 03/24/2014 09:10 [facility] InternVonnie Dykes MD 03/24/2014 10:30 [facility] Room 1 Attention: Contact your local Clinic if further appointment detail needed. Your Goals/Additional instructions: Source: [facility] POWERCHART Document Id: [id number] Miscellaneous - Juan Soto M.D. - 03/09/2014 11:45 AM CDT Ambulatory Discharge Medication List [address] [id number] Visit Information Name: YARELIS MORENO [facility] Number: [id number] Visit Date: 03/09/2014 11:45:29 Attending Provider: JUAN SOTO MD Primary Care Provider: VONNIE STEIN MD [...] the Following Medications: Medication list as of 03-09-14 11:45 Attention: If you have any medications at home that are not on this list, DO NOT take them until youcontact your provider for clarification. Give a copy of your medication list to your primary care provider. Update your medication list any time medications or doses are changed and carry your medication list at all times in case of emergency. Electronically Signed By: JUAN SOTO MD Signed On:09-MAR-2014 11:45:26 Additional Information: Source: [facility] POWERCHART Document Id: [id number] documented in this encounter Plan of Treatment Not on filedocumented as of this encounter Visit Diagnoses Not on filedocumented in this encounter Additional Health Concerns Assessment Noted Time PHQ-9 Depression Total Score: 2 02/19/2014 2:58 PM CDT documented as of this encounter
--- OUTSIDE RECORDS SUMMARY | 2022-01-18 13:31 | XMS_ITS | Encounter Summary ---
:1950 Author Organization [facility] Address [address] [place] [address] Care Team Providers Name Role Phone Unavailable Primary Care Provider Unavailable Encounter Details Date Type Department Care Team Description 03/24/2014 Hospital Encounter HX NO MAPPING Jazmine Garcia M.D. 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
--- OUTSIDE RECORDS SUMMARY | 2022-01-18 13:31 | XMS_ITS | Encounter Summary ---
:1950 Author Organization [facility] Address [address] [place] [address] Care Team Providers Name Role Phone Unavailable Primary Care Provider Unavailable Encounter Details Date Type Department Care Team Description 10/28/2013 Hospital Encounter HX NO MAPPING [facility] Mcfarl[facility] 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
--- OUTSIDE RECORDS SUMMARY | 2022-01-18 13:31 | XMS_ITS | Encounter Summary ---
:1950 Author Organization [facility] Address [address] [place] [address] Care Team Providers Name Role Phone Unavailable Primary Care Provider Unavailable Reason for Visit Reason Comments Fall Encounter Details Date Type Department Care Team Description 07/15/2018 Surgery [facility]ST [facility] OR Lourdes Brown M.D. Splenectomy [address] [place] [address] [address] [place] [address] [place] [address] [phone] (Wo rk) Social History Tobacco Use Types Packs/Day Years Used Date Smoking Tobacco: Former Sex Assigned at Date Recorded Female 07/31/2018 2:58 PM DIVISION HUMAN RESOURCES MANAGER documented as of this encounter Last Filed Vital Signs Vital Sign Reading Time Taken Comments Blood Pressure 88/66 07/15/2018 6:32 PM DIVISION HUMAN RESOURCES MANAGER Pulse - - Temperature 36.2 ??C (97.2 ??F) 07/15/2018 6:34 PM DIVISION HUMAN RESOURCES MANAGER Respiratory Rate 22 07/15/2018 6:38 PM DIVISION HUMAN RESOURCES MANAGER Oxygen Saturation 92% 07/15/2018 6:38 PM DIVISION HUMAN RESOURCES MANAGER Inhaled Oxygen Concentration - - Weight - - Height - - Body Mass Index - - documented in this encounter Discharge Summaries Salty [...] Case IDs Date Procedure Surgeon Location Status [id number] 07/15/18 Splenectomy Lourdes Brown M.D. RST ROMB OR Comp DISCHARGE DISPOSITION Home-Health Care [facility] [6] ACTIVE ISSUES REQUIRING FOLLOW UP 1. [...] a 67 year-old female who presented to [facility] via ground ambulance afteraccidental slip [...] and norepinephrine infusion prior to arrival at [facility] Emergency Department via EMS transfer. She [...] therapy was consulted to assist with mobilization. Supervisor Diagnostic was also consulted to assist with possible [...] with ongoing therapy needs. Patient qualifies for [facility] due to requiring a new gait [...] products. After initial evaluation in the trauma [place] massive blood transfusion was initiated and the [...] resolution pneumothorax chest tube was transferred to [facility] and when drainage had decreased subsequently [...] performed by a visiting nurse from her [facility] agency. #5 Hypovolemic Shock (HCC) #6 Anemia Posthemorrhagic Acute (Blood Loss Anemia) Patient received blood transfusion at outside facility and was started on medication to assist with increasing blood pressures during transportation. Upon arrival at [facility] massive bloodtransfusion protocol was initiated and [...] were provided to the patient and caregiver(s). SION HUMAN RESOURCES MANAGER documented in this encounter Discharge Instructions Discharge [...] determined by evaluating therapist. {follow up locations (Optional):36822} Discharge information provided on 07/22/2018 Contact information: [facility], [address] Therapy Services: [phone] SION HUMAN RESOURCES MANAGER documented in this encounter Medications at Time [...] week rib fracture follow up with CXR. SION HUMAN RESOURCES MANAGER Lala Bailey L.G.S.W., M.S.W. - 07/22/2018 12:17 [...] our ownership and financial relationship of the [facility]/home health & hospice agencies. Reviewed insurance coverage, [...] Selected Specialties Address Phone Number Fax Number [facility] Selected Home Health Services [address] [facility] [phone] Lead Software Development Engineer: Intake NURSING: - Complete documentation in the Discharge Navigator including Nursing Report Info and Facility/NextLevel of Care Info - Call report and arrange for the patient's first visit - Send After Visit Summary and required packet of dismissal information with patient, including advance directive. PRIMARY SERVICE: - Please provide an order for: care home care, suture removal and drilling machine runner, physical therapy and occupational therapy in the [...] for ongoing discharge planning needs. Chai Mederos, M.S.W. 07/22/2018 SION HUMAN RESOURCES MANAGER Lydia Norris P.T., D.P.T. - 07/22/2018 10:20 AM CST Physical Therapy [...] respiratory. Neck brace cleared by team 2/6 OBJECTIVE Vitals not assessed. Treatment consisted of: [...] reach forward 5 cm (2 inches) 9. Overlay Operator Object from Floor from a Standing Position: Unable to rock picker but reaches 2-5 cm (1-2 inches) from [...] to prevent fall Storm Balance Score: 37 AM-[facility] Inpatient Short Form: Interpretation: Clinicians answer the -[facility] Inpatient Short Form based on observed patient [...] training, and stair training. Patient qualifies for [facility] due to requiring a new gait [...] Functional G-code Worksheet Lydia Norris P.T., D.P.T. Salty Raygoza APRN, C.N.P., M.S.N. - 07/22/2018 6:52 AM CST [...] % Pulse Rate: [77-92] 77 I/O 07/20 07 - 07/21 0700 07/21 0701 - 07/22 [...] pelvis in 4 weeks following trauma, and [facility] check. ? #6 Dysthymia - Home Sertraline. ? Please feel free to page the Trauma Service at [phone] with any questions in regards to the plan of care. SION HUMAN RESOURCES MANAGER Associated attestation - Giuliano Martinez M.D. - 07/22/2018 12:12 PM DIVISION HUMAN RESOURCES MANAGER I evaluated and examined the patient along [...] referrals made: none Time Spent: Billing codes: 28239 (15-30 mins SAS1) SION HUMAN RESOURCES MANAGER Swetha Hester P.A.-C. - 07/21/2018 10:50 AM [...] 96 % Pulse Rate: [79-93] 85 I/O 07/18 07 - 07/19 0700 07/19 07 - 07/20 0700 / 0701 - [...] pelvis in 4 weeks following trauma, and gb check. ? #6 Dysthymia - Home Sertraline. [...] Disposition: General cares, dismissal pending timing of care home facility versus rehab placement, anticipate readiness for dismissal on Sunday07/22/18 ?? Please feel free to page the Trauma Service at [phone] with any questions in regards to the plan of care. Rashmi Jiménez R.RJyoti, L.R.T. - 07/21/2018 10:10 AM CST 07/21/18 [...] Administer post splenectomy vaccines prior to dismissal Lakhwinder Wilcox - 07/20/2018 9:03 PM CST 07/20/182044 BPAP/CPAP [...] signed by: Lakhwinder Donald 07/20/18 9:05 PM SION HUMAN RESOURCES MANAGER Salty Hernandez, CHUNG, C.N.P., M.S.N. - 07/20/2018 11:19 AM CST [...] L/min Pulse Rate: [79-103] 92 I/O 07/18 0701 - 07/19 0700 07/19 07 - 07/20 0700 07/20 07 - 07/21 0700 P.O. 1050 500 [...] of left sided chest tube, will require care home facility versus rehab, anticipate readiness for dismissal [...] Continue to monitor output character and volume. Crgaib90/87/125/205 mL. If outputs remain low, this can [...] pelvis in 4 weeks following trauma, and [facility] check. ? #6 Dysthymia - Home Sertraline. ? Please feel free to page the Trauma Service at [phone] with any questions in regards to the [...] patient is in agreement of this assessment. SION HUMAN RESOURCES MANAGER Rashmi Cameron R.R.TYvonne, L.R.T. - 07/20/2018 7:35 AM CST 07/20/18 0700 BPAP/CPAP Therapy BPAP/CPAP Interface Full face mask BPAP/CPAP Interface Size Medium $BPAP/CPAP Yes Ventilator Parameters BPAP/CPAP Mode CPAP NPPV EPAP (CPAP) Setting 10 cm H2O cpap for hyperinflation at night and during the day as available SION HUMAN RESOURCES MANAGER Pineda Kitchen P.T., D.P.T. - 07/19/2018 3:43 [...] activity, would recommend Transitional Care Unit or care home facility vs acute inpatient rehabilitation facility such as [address] [place] [address]. Rehab potential: Ms. Painting has Good potential [...] CMS Modifier: CK Kenneth Kitchen P.T., D.P.T. SION HUMAN RESOURCES MANAGER Diane Srivastava O.T. - 07/19/2018 11:30 AM [...] questions answered. Outcome Measures Current ADL Status: -[facility] Inpatient Short Form: Putting on and taking [...] CMS Modifier: CI Interpretation: Clinicians answer the [facility] Inpatient Short Form based on observed patient [...] Daily Activities CMS Modifier: DAMION Srivastava O.T. SION HUMAN RESOURCES MANAGER Hayden Matthew M.D. - 07/19/2018 10:35 AM [...] hours contingent on duration of chest tube SION HUMAN RESOURCES MANAGER Rashmi Cameron R.R.T., L.R.T. - 07/19/2018 9:16 AM CST Assist with cpap at night, hyperinflation therapy pt in chair, getting up to use bathroom , will check back later for therapy Salty Raygoza APRN C.N.PYvonne, M.S.N. - 07/19/2018 6:48 AM CST Trauma [...] L/min Pulse Rate: [70-105] 85 I/O 07/17 07 - 07/18 0700 07/18 07 - 07/19 0700 P.O. 250 1050 Intermittent Medications 620 Total [...] Diet Adult Diet Regular: General starting at 06 0646 - Activity/Exercise: As tolerated with walker [...] Continue to monitor output character and volume. Bgiyys29/125/205 mL. Output is non bilious. - Midline [...] pelvis in 4 weeks following trauma, and [facility] check. #8 Abnormal Computed Tomography 07/15/18 [...] free to page the Trauma Service at [phone] with any questions in regards to the plan of care. SION HUMAN RESOURCES MANAGER Estefani Kuo L.G.S.W., M.S.W. - 07/18/2018 3:38 PM CST SUBJECTIVE Does not apply OBJECTIVE Does not apply ASSESSMENT / PLAN ASSESSMENT Social work attempted to meet with patient to provide support and complete psychosocial assessment. Patient was busy with other providers at the time. PLAN 1. Social work will follow up at a later time. Chai Rubio, M.S.W. 07/18/2018 SION HUMAN RESOURCES MANAGER Ayleen Sun MLittle. - 07/18/2018 3:13 PM CST 07/18/18 1513 [...] one person assistance. Will follow up tomorrow. SION HUMAN RESOURCES MANAGER Lora Tucker P.T., D.P.T. - 07/18/2018 1:15 PM CST 07/18/18 6655 Reason Therapy Missed Reason Therapy Missed Other [...] of chest CT later today. Service pager: [phone] SION HUMAN RESOURCES MANAGER Associated attestation - Yeison Butt M.D. - 07/18/2018 12:32 PM DIVISION HUMAN RESOURCES MANAGER I have seen, examined, reviewed, and discussed [...] 11:12 AM by Shana Irizarry Problem List [id number] Dysthymic Disorder (300.4) Pneumothorax Trauma Initial Overview [...] team. Please page the Trauma service at [phone] if we may be of assistance. Estefani Landaverde L.G.S.W. M.S.Shankar - 07/17/2018 4:31 PM CST SUBJECTIVE Does not apply OBJECTIVE Does not apply ASSESSMENT / PLAN ASSESSMENT Social work attempted to meet with patient to provide support and complete comprehensive assessment.Patient was not available at this time. PLAN 1. Social work will follow up at a later time. Chai Rubio M.SDiane 07/17/2018 SION HUMAN RESOURCES MANAGER Annabel Clements P.A.-C. - 07/17/2018 3:32 PM CST [...] female sitting up in the chair with Rampart J in place and in no acute [...] team. Please page the Trauma service at [phone] if we may be of assistance. SION HUMAN RESOURCES MANAGER Hayden Matthew M.D. - 07/17/2018 10:46 AM [...] observation. Thetrauma team continues to follow closely. SION HUMAN RESOURCES MANAGER Karri Barnhart M.D. - 07/17/2018 7:49 AM [...] of CPAP and pulmonary hygiene. Service pager: [phone] SION HUMAN RESOURCES MANAGER Associated attestation - Yeison Butt M.D. - 07/17/2018 11:47 AM DIVISION HUMAN RESOURCES MANAGER I have seen, examined, reviewed, and discussed this patient with the [facility] ICU team. Please refer to resident/JAUN/Fellow note for details. I have reviewed pertinent history, physical exam, labs, and imaging. I agree with documented history, objective findings, assessment and plan. ASSESSMENT / PLAN Problem List * (Principal)Major Laceration Spleen Initial Dysthymia Overview Signed 10/31/2016 11:12 AM by [facility]ie [facility] Problem List [id number] Dysthymic Disorder (300.4) Pneumothorax Trauma Initial Overview [...] D.P.T. - 07/16/2018 4:49 PM CST 07/16/18 4525 Reason Therapy Missed Reason Therapy Missed Medical hold Chart review of EMR completed. In AM, patient was intubated and sedated, not following commands. Nursing reported possible plan of extubation later today and weaning of sedation. PT unable to return inafternoon. Will continue to follow. SION HUMAN RESOURCES MANAGER Ayleen Sun M.S. - 07/16/2018 3:48 PM CST 07/16/18 1548 Reason Therapy Missed Reason Therapy Missed Other (comment) Patient intubated and sedated this morning. Will follow up tomorrow to check status and initiate OT assessment if appropriate. SION HUMAN RESOURCES MANAGER Annabel Clements P.A.-C. - 07/16/2018 1:41 PM [...] 98 I/O last 3 completed shifts: In: 02291.8 [Enteric (NG/OG) Tube:195] Out: 2624 [Urine:1449; Emesis [...] 4-8 - Intubated prior to transport - AB/41/7.36/-2/23 this morning - Extubated around 1300 today [...] team. Please page the Trauma service at [phone] if we may be of assistance. SION HUMAN RESOURCES MANAGER Hayden Matthew M.D. - 07/16/2018 12:07 PM [...] a flail chest of 4 through 8 SION HUMAN RESOURCES MANAGER Raghavendra Mason M.B.B.S. - 07/16/2018 11:50 AM CST Miss painting [...] ??? Acute Respiratory Failure With Hypoxia (HCC) Jeff RiosBYvonneS. SION HUMAN RESOURCES MANAGER Galo Langford M.D. - 07/16/2018 4:09 AM CST Trauma Tertiary Survey (Adult) Admission Date/Time: 07/15/2018 6:26 PM Trauma Level: Red Mechanism of Injury: Slip/Fall on ice from standing height SUBJECTIVE PREHOSPITAL CARE INFORMATION - Vitals: highest heart rate: 102, lowest blood pressure: 77/54 - Origin: [facility] - Mechanism: Fall on ice - Injuries: 3 left rib fractures with spleen laceration - Treatments: Norepinephrine, 2 units RBCs, 4L IVFs Dilaudid, and Zofran x2. ?? HISTORY OF PRESENT ILLNESS This is a 67-year-old female presenting to [facility] via ground ambulance after accidental [...] and norepinephrine infusion prior to arrival at [facility] Emergency Department via EMS transfer. She [...] FNA: None available, reportedly benign fna in [facility]. Last US: (09-30-13, outside records): left 0.9 [...] interval intubation with ET tube above the eilse. Enteric tube with tip just beyond the [...] radiography Incidental Findings: 1. Bovine aortic arch Sutures/Deena (location and removal dates): 1. Midline abdominal [...] Goal glucose <180 ?? Musculoskeletal: PLAN-- Place Rampart J cervical collar Reevaluate spinal immobilization in [...] Disposition: Requires ICU level cares Service pager: [phone] SION HUMAN RESOURCES MANAGER Associated attestation - Yeison Butt M.D. - 07/16/2018 4:13 PM DIVISION HUMAN RESOURCES MANAGER I have seen, examined, reviewed, and discussed this patient with the [facility] ICU team. Please refer to resident/JAUN/Fellow note for details. I have reviewed pertinent history, physical exam, labs, and imaging. I agree with documented history, objective findings, assessment and plan. ASSESSMENT / PLAN Problem List * (Principal)Major Laceration Spleen Initial Dysthymia Overview Signed 10/31/2016 11:12 AM by [facility] Problem List [id number] Dysthymic Disorder (300.4) Pneumothorax Trauma Initial Overview [...] which has been billed separately. Romario Christianson, R.R.T., L.R.T. - 07/15/2018 10:23 PM CST Called to OR at 2038 for patient transport. Patient sedated, intubated and mechanically ventilated (7.0/24@teeth, CMV 330mL, 40%, PEEP 6, rate 18 w/ ABG 7.41/34/208/22). Patient closed and CXR taken toconfirm tube placement/rule out pneumothorax and abdominal xray to confirm NG placement. PIPs 19, Plats 15, Compliance 41, Driving pressure 9. Glidescope was easy intubation per THERMAL CUTTING TRACER MACHINE OPERATOR. Patient transported from OR 106 up to 7B room 14 @ 2202 hours. No issues with transport and RT on 7Bgiven report of left 4th and 5th rib fractures and patient here for splenectomy. 7B RT has no questions at this time and THERMAL CUTTING TRACER MACHINE OPERATOR thanked for help provided. Electronically signed by: Enrique Christianson R.R.T., L.R.T. 07/15/18 10:26 PM SION HUMAN RESOURCES MANAGER Yoli Quiros L.G.S.W., M.S.W. - 07/15/2018 6:44 PM CST SUBJECTIVE Patient presents as a trauma page from [facility] ED for medical work up. Patient is not assessed due to receiving urgent medical evaluation. Per flight crew, patient's (Royal, ) was present at referring facility and will be traveling to [facility]. OBJECTIVE Emergency Department high school social science teacher responded to the trauma bay in the context of a trauma page. Yarelis Painting was brought by [facility]. ASSESSMENT / PLAN ASSESSMENT Social work did not assess the patient, due to receiving urgent medical workup. PLAN 1. Per flight crew, patient's (Royal, ) was present at referring facility and will be traveling to [facility]. 2. Please contact social work should any needs arise. Chai Kwok, M.S.W. 07/15/2018 SION HUMAN RESOURCES MANAGER documented in this encounter H&P Notes Galo Langford M.D. - 07/15/2018 7:58 PM CST SUBJECTIVE CHIEF COMPLAINT Yarelis Painting is a 67 y.o. female who presents with accidental slip/fall with splenic injury and hemodynamic instability requiring emergency splenectomy. PREHOSPITAL CARE INFORMATION - Vitals: highest heart rate: 102, lowest blood pressure: 77/54 - Origin: [facility] - Mechanism: Fall on ice - Injuries: 3 left rib fractures with spleen laceration - Treatments: Norepinephrine, 2 units RBCs, 4L IVFs Dilaudid, and Zofran x2. HISTORY OF PRESENT ILLNESS This is a 67-year-old female presenting to [facility] via ground ambulance after accidental [...] and norepinephrine infusion prior to arrival at [facility] Emergency Department via EMS transfer. She [...] PLAN-- Goal glucose <180 Musculoskeletal: PLAN-- Place Rampart J cervical collar Reevaluate spinal immobilization in [...] [facility] S[facility], please contact via pager [phone] for additional questions. SION HUMAN RESOURCES MANAGER Shabana Alcazar M.B.BYvonneS. - 07/15/2018 6:48 PM CST SUBJECTIVE CHIEF COMPLAINT Mechanical fall Splenic laceration Trauma Level: Red HISTORY OF PRESENT ILLNESS Ms. Painting is a 67 y.o. female who slipped on ice landing forward and on her left arm. She denies trauma to the head or losing consciousness. She was initially evaluated in [place] where she underwent a CT scan showing 3 left sided rib fractures with splenic laceration and pneumothorax. She developed hypotension and therefore blood transfusion was initiated. She also received vasopressors to support her hemodynamics. In route the patient became more hypotensive with systolics in the 70s. On arrival to the Trauma [place], we elected to proceed to the operating room emergently. Anticoagulation/AntiPlatelet Medications (IP and OP) No history of use. Primary Survey: Please refer to the ED executive officer special warfare team's note Resuscitation: Secondary Survey: Please refer to the ED executive officer special warfare team's note History reviewed. No pertinent past medical [...] lady who presented emergently to the Trauma [place] for evaluation of hypotension in the setting [...] ICU for close monitoring and appropriate management. SION HUMAN RESOURCES MANAGER Associated attestation - Lourdes Brown M.D. - 07/16/2018 8:52 AM DIVISION HUMAN RESOURCES MANAGER I have reviewed the patient's chart and history with the trauma team in detail. I agree with findings and documentation. Patient seen and examined. 67-year-old woman who fell from standing height on ice. Denies loss of consciousness. She underwent CT imaging in [place] which showed a splenic laceration with very [...] decision maker: consent for transfusion was obtained [place] protocol All relevant documentation and testing were [...] Procedure successful: yes Complications: no apparent complications SION HUMAN RESOURCES MANAGER Rashi De Luna Jr., M.D. - 07/15/2018 [...] no Rashi De Luna Jr., M.D. 07/15/182039 SION HUMAN RESOURCES MANAGER documented in this encounter Consult Notes Lala Bailey L.G.S.W., M.S.W. - 07/22/2018 9:15 AM CSTAssociated Order(s): IP CONSULT TO CARE MANAGEMENT Psychosocial Assessment SUBJECTIVE sawmill worker received referral to meet with patient for Discharge Planning needs. sawmill worker visited with patient 1:1 in hosptial room on FR4C. Discussed role of social work in hospital. Discussed patient's home environment and discharge plans. Patient reports that her current hospitalization is the result of a fall on the ice, where patient experienced a rib fracture and spleen rupture. A list of care home facility options (that patient/family geographically resides or requests) has been provided to and reviewed with patient/family. Disclaimers: Financial disclosure provided informing patient of our ownership and financial relationship of the [facility] beds, home health, and hospice agencies. Reviewed [...] clinic and provider: Esme Chi MD - [facility] - [phone] Primary Language: Arabic Licensed Clinical Social Worker Services Used: No Legal Information: Legal Decision [...] Exploratory Laparotomy; Surgeon: Lourdes Brown M.D.; Location: [facility] OR ??? SPLENECTOMY N/A 07/15/2018 Procedure: Splenectomy; Surgeon: Lourdes Brown M.D.; Location: [facility] OR SOCIAL HISTORY Family of Origin: Patient was born and raised in [place], [place]. Patient had 2 brothers, 1 of whom isnow . Patient's younger brother, Humphrey, resides in [place], [place]. Marital Status / Family / Household Status: Patient resides with her spouse, Raoul. Patient has 1 daughter, Carey ([place], [place]) and 2 step-children, Lilian ([place]), and Humphrey ([place]). Support Systems: Spouse, Children, Family members. We have not received permission to contact them. 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 ASSISTIVE DEVICES Patient has the following equipment: Eyeglasses, Walker, Cane Patient anticipates potentially needing the following additional equipment: Will continue to assess MANAGER MAIL Formal and Informal Resources: Patient is currently receiving individual counseling at [facility] in [place], [place]. Patient is informally supported by her family members. FINANCES/INSURANCE Primary insurance: MEDICARE A AND B Secondary insurance: [employer] Income Information Does the Patient have any Financial Concerns?: No Income/Expense Information: Income meets expenses ADVANCE DIRECTIVES Advance Directives: Patient has advance directive, copy not in chart (in [place]) OBJECTIVE MENTAL HEALTH Mental Health History: Patient [...] with state of illness?: No Fear of senior living/extended hospitalization?: No Coping with recent loss/disruption in support system?: Yes Homicidal: Homicidal Risk Current Homicidal Ideation: No SUBSTANCE USE Patient denied current substance use concerns Mental Health Treatment History Past Treatments: Psychotherapy, Pharmacotherapy Psychotherapy details: Individual counseling/neurofeedback via [facility] in [place], [place] Current Stressors Current Hospitalization; Decline in [...] at this time Chai Mederos, M.S.W. 07/22/2018 SION HUMAN RESOURCES MANAGER Lora Tucker P.T., D.P.T. 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 SION HUMAN RESOURCES MANAGER Ayleen Sun M.S. - 07/17/2018 1:36 PM [...] Location: [facility] OR History of Present Illness:Patient admitted due to fall from standing on ice. Sustained a splenic laceration and left-sided rib fractures 3 through 8 Occupational Profile: Prior Function / Occupational Profile Level of [place]: Independent with ADLs and functional transfers, Independent [...] Toilet: Standard Home Equipment Home Adaptive Equipment: (straddle carrier operator and sock aid from last years left [...] follow Current ADL/IADL Function ADL Comments: see [facility] Bed Mobility - Supine to Sit # [...] questions answered. Outcome Measures Current ADL Status: [facility] Inpatient Short Form: Putting on and taking [...] Score: 59.67 Daily Activities CMS Modifier: CK Interpretation: Clinicians answer the [facility] Inpatient Short Form based on observed patient [...] Ban muñiz Clinical Impression: Patient presenting to [facility] after a fall on the ice. She [...] Activities CMS Modifier: CK Ayleen Natter, M.S. SION HUMAN RESOURCES MANAGER Rosalina Jeffery M.D. - 07/17/2018 10:25 AM CSTAssociated Order(s): [...] Respiratory Failure With Hypoxia (HCC) Although Ms Painitng is at risk for having had a [...] her home environment versus short- term placement. SION HUMAN RESOURCES MANAGER Rosalina Jeffery M.D. - 07/16/2018 11:12 AM CST PM&R physician consultation received. EMR reviewed and discussed case briefly with [facility] Tra[facility]. Patient remains intubated and sedated. Will plan to return as patient's medical status allows and is appropriate for PM&R evaluation. SION HUMAN RESOURCES MANAGER documented in this encounter Nursing Notes Rashmi Snow R.N. - 07/22/2018 6:49 PM CST IV removed, education completed-no questions at this time. Vitals signs are stable. Patient is discharging home with . Home health care will be provided by [facility]. Report was called 07/22/18. [facility] will contact patient with first visit once patient has been staffed. Patient willbe escorted to the front door via wheelchair. SION HUMAN RESOURCES MANAGER Rashmi Snow R.N. - 07/22/2018 4:27 PM [...] and is getting to the bathroom independently. SION HUMAN RESOURCES MANAGER Nallely Banks R.RYvonneTYvonne, L.R.T. - 07/21/2018 10:25 PM CST Plan [...] be inspected each shift. Electronically signed by: [place] PowellRYvonneTYvonne, L.R.T. 07/22/18 1:41 AM Bebo Cherry R.N. - [...] day. Pain reported as reasonable per patient. SION HUMAN RESOURCES MANAGER Rosalie Kim R.N. - 07/20/2018 6:02 PM [...] and required several changes throughout the day. SION HUMAN RESOURCES MANAGER Dianne Page R.N. - 07/20/2018 2:52 AM [...] to sleep about 6 hours last night. SION HUMAN RESOURCES MANAGER Brigette Kumar R.R.Solitario., L.R.T. - 07/20/2018 1:42 AM CST Non-Invasive Support: BPAP/CPAP Interface: Full face mask BPAP/CPAP Interface Size: Medium BPAP/CPAP Mode: CPAP NPPV EPAP (CPAP) Settin cm H2O Patient placed on CPAP for the night. RT will continue to assist with hyperinflation therapy TID andQHS. Electronically signed by: Brigette Kumar R.R.T., L.R.T. 07/20/18 1:42 AM SION HUMAN RESOURCES MANAGER Rissa Villalta R.N. - 07/19/2018 6:36 PM [...] Santo Keyes R.R.T., L.R.T. 07/19/18 12:12 AM SION HUMAN RESOURCES MANAGER Rachelle Diamond R.N. - 07/18/2018 6:12 PM [...] mobilize and her pain was well controlled. SION HUMAN RESOURCES MANAGER Larissa Sosa R.R.T., L.R.T. - 07/18/2018 4:34 PM CST Patient [...] applied to the bridge of the nose. SION HUMAN RESOURCES MANAGER Bebo Angeles R.RYvonneTYvonne, L.R.T. - 07/17/2018 10:32 PM CST Non-Invasive [...] applied to the bridge of the nose. SION HUMAN RESOURCES MANAGER Matthew Siegel - 07/17/2018 5:51 PM CST Patient is a 67 [id number] that was admitted on 07/15/2018 with a [...] signed by: Matthew Siegel 07/17/18 6:28 PM SION HUMAN RESOURCES MANAGER Rachelle Diamond R.N. - 07/17/2018 3:25 PM CST Compromised Skin [...] is mobilizing and had good pain control. Yuriy Lora R.R.TYvonne, L.R.T. - 07/17/2018 6:22 AM CST [...] by: Brock Castillo R.N. 07/16/18 9:37 PM Trent Moore R.R.TYvonne, L.RAndrea. - 07/16/2018 6:27 PM CST Pt was extubated today and is doing well. CPAP started for lung expansion TID and at night. Rib fracture protocol started as well. Will continue to follow while in ICU SION HUMAN RESOURCES MANAGER Jagruti Munroe R.N. - 07/16/2018 2:30 PM [...] activity was limited. Working on pain control. SION HUMAN RESOURCES MANAGER Yuriy Banks R.R.T., DomingoRJyoti - 07/16/2018 4:15 [...] refresh. ETT (Active) Placement Date/Time: 07/15/18 (c) 185 Mask Ventilation: Not attempted ETT Type: Standard [...] neck or ears. ETT repositioned Q4 hours. SION HUMAN RESOURCES MANAGER documented in this encounter OR Notes Op Note - Iglesia Watts M.D. - 07/15/2018 6:59 PM CST FULL OP NOTE Procedure(s) (LRB): Splenectomy (N/A) Exploratory Laparotomy (N/A) Surgeon(s) and Role: * Lourdes Brown M.D. - Primary * Iglesia Watts M.D. - [place] * Royal Infante M.D. - Other Tool Crib Clerk Anesthesia Type: General Pre-Operative Diagnosis: Post-Operative Diagnosis: [...] to be intact without injury. We then boot turner attention back to left upper quadrant. [...] Drain 19Fr BERNY RUQ Iglesia Watts M.D. SION HUMAN RESOURCES MANAGER Brief Op Note - Iglesia Watts M.D. - 07/15/2018 6:59 PM CST BRIEF OP NOTE Procedure(s) (LRB): Splenectomy (N/A) Exploratory Laparotomy (N/A) Surgeon(s) and Role: * Lourdes Brown M.D. - Primary * Iglesia Watts M.D. - [place] * Royal Infante M.D. - Other Tool Crib Clerk Anesthesia Type: General Pre-Operative Diagnosis: Post-Operative Diagnosis: [...] cm 07/16/2018 8:00 AM GI Tube Function Suction;network admin 07/16/2018 8:00 AM Status Suction 07/16/2018 8:00 [...] implants in log * Iglesia Watts M.D. SION HUMAN RESOURCES MANAGER documented in this encounter ED Notes Nito Christianson M.D. - 07/15/2018 7:33 PM CST This patient was a level red 14 trauma resuscitation. I functioned as the team physician in the traumaresuscitation. See scribed note for details regarding the primary and secondary surveys. Briefly, this is a 59-year-old female who presented to the [place] [facility] by ambulance after a ground level fall on ice. Evaluation in [place] was notable for multiple rib fractures and splenic laceration. The patient was also hemodynamically unstable. She was then transported by air to the [place] [facility] for further trauma evaluation. EN route, the patient received 2 units of packed red blood cells and was initiated on norepinephrine. Highest heart rate was 102 beats per minute. Lowest systolic blood pressure was 65 mmHg. Upon arrival to the [place] [facility], an additional IV was placed [...] Spleen Initial Nito Christianson M.D. Resident 07/15/181935 Rashi Pink Jr., M.D. - 07/15/2018 6:29 PM CST SUBJECTIVE CHIEF COMPLAINT/REASON FOR VISIT Fall HISTORY OF PRESENT ILLNESS 67 year old female with a history of dysthymia presents to the ED via ambulance from [facility] for a fall on ice today. Earlier today, the patient had a fall forwards on the ice, landing with her left arm under her. There was no head injury or loss of consciousness. She is not on blood thinners. The patient had immediate left rib pain and was taken to [facility] for evaluation. There, CT showed three left rib fractures with a splenic laceration and a small pneumothorax. Her breathing was noted to be normal. She became hypotensive with BP 91/47, so blood was given. Total, she was given Norepinephrine, 2 units RBCs, 4L IVFs Dilaudid, and Zofran x2. Hemoglobin was 11.2. The patient was transfer red to the [facility] ED for further evaluation and care. In [...] 102, lowest blood pressure: 77/54 - Origin: [facility] - Mechanism: Fall on ice - Injuries: 3 left rib fractures with spleen laceration - Treatments: Norepinephrine, 2 units RBCs, 4L IVFs Dilaudid, and Zofran x2. RESUSCITATION - Interventions: IV access established, blood transfusion COURSE 1826: Patient arrives in R1 1830: Blood transfusion is hanging. 1832: 88/66 manual blood pressure. 1834: 36.2 C oral temperature. 183: 18 gauge IV placed in the left wrist. 183: Vitals on the monitor: 131/112 BP, 86 % oxygen, 95 HR. 183: Patient taken to the OR. IMPRESSION/REPORT/PLAN 1. Splenic laceration, traumatic 2. Multiple rib fractures The patient fell from standing earlier today, and sustained multiple rib fractures. A CT was done atthe outside institution, which revealed a splenic laceration and hemorrhage. CTs were reviewed priorto arrival here at [facility]. She was a level red trauma [...] Rashi De Luna Jr., M.D. 07/17/18 1002 SION HUMAN RESOURCES MANAGER documented in this encounter Miscellaneous Notes [facility] - Salty Hernandez APRN, C.N.P., M.S.N. - 07/16/2018 12:45 AM DIVISION HUMAN RESOURCES MANAGER Mechanism of injury: Fall from standing Yarelis Painting is a 67 year-old female who presented to [facility] via ground ambulance afteraccidental slip [...] and norepinephrine infusion prior to arrival at [facility] via EMS transfer. She [...] therapy was consulted to assist with mobilization. Supervisor Diagnostic was also consulted to assist with possible [...] with ongoing therapy needs. Patient qualifies for [facility] due to requiring a new gait [...] products. After initial evaluation in the trauma [place] massive blood transfusion was initiated and the [...] resolution pneumothorax chest tube was transferred to [facility] and when drainage had decreased subsequently [...] performed by a visiting nurse from her [facility] agency. #5 Hypovolemic Shock (HCC) #6 Anemia Posthemorrhagic Acute (Blood Loss Anemia) Patient received blood transfusion at outside facility and was started on medication to assist with increasing blood pressures during transportation. Upon arrival at [facility] massive bloodtransfusion protocol was initiated and [...] monitored and repleted as necessary while hospitalized. SION HUMAN RESOURCES MANAGER documented in this encounter Plan of Treatment Pending Results Name Type Priority Associated Diagnoses Date/Ti me Prepare Fresh Frozen Blood Bank STAT 019 7:15 PM DIVISION HUMAN RESOURCES MANAGER Plasma Prepare Red Blood Blood Bank STAT 07/15/2018 7:15 PM DIVISION HUMAN RESOURCES MANAGER Cells Prepare Red Blood Blood Bank STAT 07/15/2018 7:15 PM DIVISION HUMAN RESOURCES MANAGER Cells Prepare Red Blood Blood Bank STAT 07/15/2018 7:15 PM DIVISION HUMAN RESOURCES MANAGER Cells Prepare Platelets Blood Bank STAT 07/15/2018 7:15 PM DIVISION HUMAN RESOURCES MANAGER Prepare Fresh Frozen Blood Bank STAT 019 7:15 PM DIVISION HUMAN RESOURCES MANAGER Plasma Scheduled Referrals Name Type Priority Associated Diagnoses [facility] Referral Routine Expec anastasiya: Care and General 08/04/2018 Surgery office (Approximate) , visit (clinic) Expires: 07/21/2021 [facility] Outpatient Referral Routine Decline Functional O rdered: Health Referral Status 07/24/2018 Debility Pneumothorax Trauma Initial documented as of this encounter Procedures Procedure Name Priority Date/Time Associated Comments Diagnosis DX CHEST PORTABLE 1 RAD - Routine 07/22/2018 8:28 Resu lts for VIEW (most inpatients AM DIVISION HUMAN RESOURCES MANAGER this proced ure and all are in the outpatients) results section. CBC WITHOUT Routine 07/22/2018 8:20 Results for DIFFERENTIAL, B AM DIVISION HUMAN RESOURCES MANAGER this procedu re are in the results section. PHOSPHORUS Routine 07/22/2018 8:20 Results for (INORGANIC), S AM DIVISION HUMAN RESOURCES MANAGER this procedur e are in the results section. BASIC METABOLIC Routine 07/22/2018 8:20 Results f or PANEL, S/P AM DIVISION HUMAN RESOURCES MANAGER this procedure are in the results section. ADULT OXYGEN THERAPY Routine 07/21/2018 8:00 AM DIVISION HUMAN RESOURCES MANAGER NON-INVASIVE Routine 07/21/2018 8:00 VENTILATION AM DIVISION HUMAN RESOURCES MANAGER PULSE OXIMETRY, Routine 07/21/2018 8:00 CONTINUOUS AM DIVISION HUMAN RESOURCES MANAGER CHEST PHYSIOTHERAPY Routine 07/21/2018 7:00 AM DIVISION HUMAN RESOURCES MANAGER DX CHEST PORTABLE 1 RAD - Routine 07/21/2018 6:03 Resu lts for VIEW (most inpatients AM DIVISION HUMAN RESOURCES MANAGER this proced ure and all are in the outpatients) results section. NON-INVASIVE Routine 07/20/2018 8:01 VENTILATION PM DIVISION HUMAN RESOURCES MANAGER CHEST PHYSIOTHERAPY Routine 07/20/2018 7:00 PM DIVISION HUMAN RESOURCES MANAGER CHEST PHYSIOTHERAPY Routine 07/20/2018 1:00 PM DIVISION HUMAN RESOURCES MANAGER ADULT OXYGEN THERAPY Routine 07/20/2018 8:01 AM DIVISION HUMAN RESOURCES MANAGER NON-INVASIVE Routine 07/20/2018 8:01 VENTILATION AM DIVISION HUMAN RESOURCES MANAGER PULSE OXIMETRY, Routine 07/20/2018 8:01 CONTINUOUS AM DIVISION HUMAN RESOURCES MANAGER CHEST PHYSIOTHERAPY Routine 07/20/2018 7:00 AM DIVISION HUMAN RESOURCES MANAGER DX CHEST PORTABLE 1 RAD - Routine 07/20/2018 6:22 Resu lts for VIEW (most inpatients AM DIVISION HUMAN RESOURCES MANAGER this proced ure and all are in the outpatients) results section. ADULT OXYGEN THERAPY Routine 07/19/2018 8:01 PM DIVISION HUMAN RESOURCES MANAGER NON-INVASIVE Routine 07/19/2018 8:01 VENTILATION PM DIVISION HUMAN RESOURCES MANAGER CHEST PHYSIOTHERAPY Routine 07/19/2018 7:01 PM DIVISION HUMAN RESOURCES MANAGER CHEST PHYSIOTHERAPY Routine 07/19/2018 1:00 PM DIVISION HUMAN RESOURCES MANAGER ADULT OXYGEN THERAPY Routine 07/19/2018 8:01 AM DIVISION HUMAN RESOURCES MANAGER NON-INVASIVE Routine 07/19/2018 8:01 VENTILATION AM DIVISION HUMAN RESOURCES MANAGER PULSE OXIMETRY, Routine 07/19/2018 8:01 CONTINUOUS AM DIVISION HUMAN RESOURCES MANAGER NON-INVASIVE Routine 07/19/2018 7:15 VENTILATION AM DIVISION HUMAN RESOURCES MANAGER NON-INVASIVE Routine 07/19/2018 7:15 VENTILATION AM DIVISION HUMAN RESOURCES MANAGER CHEST PHYSIOTHERAPY Routine 07/19/2018 7:00 AM DIVISION HUMAN RESOURCES MANAGER DX CHEST PORTABLE 1 RAD - Routine 07/19/2018 5:14 Resu lts for VIEW (most inpatients AM DIVISION HUMAN RESOURCES MANAGER this proced ure and all are in the outpatients) results section. CBC WITHOUT Routine 07/18/2018 9:35 Results for DIFFERENTIAL, B PM DIVISION HUMAN RESOURCES MANAGER this procedu re are in the results section. PHOSPHORUS Routine 07/18/2018 9:34 Results for (INORGANIC), S PM DIVISION HUMAN RESOURCES MANAGER this procedur e are in the results section. MAGNESIUM, S Routine 07/18/2018 9:34 Results for PM DIVISION HUMAN RESOURCES MANAGER this procedure are in the results section. BASIC METABOLIC Routine 07/18/2018 9:34 Results f or PANEL, S/P PM DIVISION HUMAN RESOURCES MANAGER this procedure are in the results section. ADULT OXYGEN THERAPY Routine 07/18/2018 8:01 PM DIVISION HUMAN RESOURCES MANAGER PULSE OXIMETRY, Routine 07/18/2018 8:01 CONTINUOUS PM DIVISION HUMAN RESOURCES MANAGER CHEST PHYSIOTHERAPY Routine 07/18/2018 7:00 PM DIVISION HUMAN RESOURCES MANAGER DX CHEST PORTABLE 1 RAD - Emergent 07/18/2018 3:46 Res ults for VIEW (Fastest; for the PM DIVISION HUMAN RESOURCES MANAGER this proce dure most critically are in the ill patients) results section. PHOSPHORUS STAT 07/18/2018 3:45 Results for (INORGANIC), S PM DIVISION HUMAN RESOURCES MANAGER this procedur e are in the results section. BASIC METABOLIC STAT 07/18/2018 3:45 Results f or PANEL, S/P PM DIVISION HUMAN RESOURCES MANAGER this procedure are in the results section. IA PLEURA DRAIN PERC Routine 07/18/2018 2:35 Effusion Pleural Results for WO IMG GUID PM DIVISION HUMAN RESOURCES MANAGER this procedure are in the results section. PHOSPHORUS Timed 07/18/2018 2:02 Results for (INORGANIC), S PM DIVISION HUMAN RESOURCES MANAGER this procedur e are in the results section. MAGNESIUM, S Timed 07/18/2018 2:02 Results for PM DIVISION HUMAN RESOURCES MANAGER this procedure are in the results section. BASIC METABOLIC Timed 07/18/2018 2:02 Results f or PANEL, S/P PM DIVISION HUMAN RESOURCES MANAGER this procedure are in the results section. CHEST PHYSIOTHERAPY Routine 07/18/2018 1:00 [address] DIVISION HUMAN RESOURCES MANAGER CT RETROSPECTIVE 3D Routine 07/18/2018 11:33 Resu lts for POST PROCESSING AM DIVISION HUMAN RESOURCES MANAGER this procedu re are in the results section. CT CHEST WITH IV RAD - Routine 07/18/2018 11:14 Result s for CONTRAST (most inpatients AM DIVISION HUMAN RESOURCES MANAGER this proced ure and all are in the outpatients) results section. ADULT OXYGEN THERAPY Routine 07/18/2018 8:00 AM DIVISION HUMAN RESOURCES MANAGER PULSE OXIMETRY, Routine 07/18/2018 8:00 CONTINUOUS AM DIVISION HUMAN RESOURCES MANAGER CHEST PHYSIOTHERAPY Routine 07/18/2018 7:01 AM DIVISION HUMAN RESOURCES MANAGER CBC WITHOUT Routine 07/18/2018 6:29 Results for DIFFERENTIAL, B AM DIVISION HUMAN RESOURCES MANAGER this procedu re are in the results section. PHOSPHORUS Routine 07/18/2018 6:29 Results for (INORGANIC), S AM DIVISION HUMAN RESOURCES MANAGER this procedur e are in the results section. BASIC METABOLIC Routine 07/18/2018 6:29 Results f or PANEL, S/P AM DIVISION HUMAN RESOURCES MANAGER this procedure are in the results section. DX CHEST PORTABLE 1 RAD - Routine 07/18/2018 5:22 Resu lts for VIEW (most inpatients AM DIVISION HUMAN RESOURCES MANAGER this proced ure and all are in the outpatients) results section. CHEST PHYSIOTHERAPY Routine 07/17/2018 7:01 PM DIVISION HUMAN RESOURCES MANAGER CHEST PHYSIOTHERAPY Routine 07/17/2018 1:00 PM DIVISION HUMAN RESOURCES MANAGER ADULT OXYGEN THERAPY Routine 07/17/2018 8:01 AM DIVISION HUMAN RESOURCES MANAGER PULSE OXIMETRY, Routine 07/17/2018 8:01 CONTINUOUS AM DIVISION HUMAN RESOURCES MANAGER CHEST PHYSIOTHERAPY Routine 07/17/2018 7:00 AM DIVISION HUMAN RESOURCES MANAGER DX CHEST PORTABLE 1 RAD - Routine 07/17/2018 5:21 Resu lts for VIEW (most inpatients AM DIVISION HUMAN RESOURCES MANAGER this proced ure and all are in the outpatients) results section. GLUCOSE POCT, B Timed 07/17/2018 4:24 Results f or AM DIVISION HUMAN RESOURCES MANAGER this procedure are in the results section. CBC WITHOUT Timed 07/17/2018 4:24 Results for DIFFERENTIAL, B AM DIVISION HUMAN RESOURCES MANAGER this procedu re are in the results section. MAGNESIUM, S Timed 07/17/2018 4:24 Results for AM DIVISION HUMAN RESOURCES MANAGER this procedure are in the results section. BASIC METABOLIC Timed 07/17/2018 4:24 Results f or PANEL, S/P AM DIVISION HUMAN RESOURCES MANAGER this procedure are in the results section. GLUCOSE POCT, B Routine 07/17/2018 4:15 Results f or AM DIVISION HUMAN RESOURCES MANAGER this procedure are in the results section. GLUCOSE POCT, B Routine 07/17/2018 12:08 Results for AM DIVISION HUMAN RESOURCES MANAGER this procedure are in the results section. GLUCOSE POCT, B Timed 07/17/2018 12:08 Results for AM DIVISION HUMAN RESOURCES MANAGER this procedure are in the results section. GLUCOSE POCT, B Routine 07/16/2018 8:10 Results f or PM DIVISION HUMAN RESOURCES MANAGER this procedure are in the results section. GLUCOSE POCT, B Timed 07/16/2018 8:10 Results f or PM DIVISION HUMAN RESOURCES MANAGER this procedure are in the results section. ADULT OXYGEN THERAPY Routine 07/16/2018 8:00 PM DIVISION HUMAN RESOURCES MANAGER PULSE OXIMETRY, Routine 07/16/2018 8:00 CONTINUOUS PM DIVISION HUMAN RESOURCES MANAGER CHEST PHYSIOTHERAPY Routine 07/16/2018 7:00 PM DIVISION HUMAN RESOURCES MANAGER GLUCOSE POCT, B Routine 07/16/2018 4:12 Results f or PM DIVISION HUMAN RESOURCES MANAGER this procedure are in the results section. GLUCOSE POCT, B Timed 07/16/2018 4:12 Results f or PM DIVISION HUMAN RESOURCES MANAGER this procedure are in the results section. CHEST PHYSIOTHERAPY Routine 07/16/2018 1:00 PM DIVISION HUMAN RESOURCES MANAGER CHEST PHYSIOTHERAPY Routine 07/16/2018 12:51 PM DIVISION HUMAN RESOURCES MANAGER CHEST PHYSIOTHERAPY Routine 07/16/2018 12:51 PM DIVISION HUMAN RESOURCES MANAGER CHEST PHYSIOTHERAPY Routine 07/16/2018 12:51 PM DIVISION HUMAN RESOURCES MANAGER CHEST PHYSIOTHERAPY Routine 07/16/2018 12:51 PM DIVISION HUMAN RESOURCES MANAGER EXTUBATION Routine 07/16/2018 12:34 PM DIVISION HUMAN RESOURCES MANAGER PATIENT STATUS Timed 07/16/2018 11:49 Results f or AM DIVISION HUMAN RESOURCES MANAGER this procedure are in the results section. ABG W/COOX Timed 07/16/2018 11:49 Results for AM DIVISION HUMAN RESOURCES MANAGER this procedure are in the results section. GLUCOSE POCT, B Timed 07/16/2018 11:48 Results for AM DIVISION HUMAN RESOURCES MANAGER this procedure are in the results section. CBC WITHOUT Routine 07/16/2018 11:48 Results for DIFFERENTIAL, B AM DIVISION HUMAN RESOURCES MANAGER this procedu re are in the results section. GLUCOSE POCT, B Routine 07/16/2018 11:47 Results for AM DIVISION HUMAN RESOURCES MANAGER this procedure are in the results section. GLUCOSE POCT, B Routine 07/16/2018 8:12 Results f or AM DIVISION HUMAN RESOURCES MANAGER this procedure are in the results section. GLUCOSE POCT, B Timed 07/16/2018 8:12 Results f or AM DIVISION HUMAN RESOURCES MANAGER this procedure are in the results section. CT LUMBAR SPINE RAD - Semiurgent 07/16/2018 8:04 Resul ts for WITHOUT IV CONTRAST (Fast; most ED AM DIVISION HUMAN RESOURCES MANAGER this p rocedure patients; some are in the inpatients) results section. CT THORACIC SPINE RAD - Semiurgent 07/16/2018 8:04 Res ults for WITHOUT IV CONTRAST (Fast; most ED AM DIVISION HUMAN RESOURCES MANAGER this p rocedure patients; some are in the inpatients) results section. CT CERVICAL SPINE RAD - Semiurgent 07/16/2018 8:04 Res ults for WITHOUT IV CONTRAST (Fast; most ED AM DIVISION HUMAN RESOURCES MANAGER this p rocedure patients; some are in the inpatients) results section. CT HEAD WITHOUT IV RAD - Semiurgent 07/16/2018 8:04 Re sults for CONTRAST (Fast; most ED AM DIVISION HUMAN RESOURCES MANAGER this procedur e patients; some are in the inpatients) results section. ADULT OXYGEN THERAPY Routine 07/16/2018 8:01 AM DIVISION HUMAN RESOURCES MANAGER PULSE OXIMETRY, Routine 07/16/2018 8:01 CONTINUOUS AM DIVISION HUMAN RESOURCES MANAGER DX SHOULDER LEFT 2+ RAD - Routine 07/16/2018 6:53 Resu lts for VIEWS (most inpatients AM DIVISION HUMAN RESOURCES MANAGER this proced ure and all are in the outpatients) results section. PATIENT STATUS Timed 07/16/2018 6:04 Results fo r AM DIVISION HUMAN RESOURCES MANAGER this procedure are in the results section. ABG W/COOX Timed 07/16/2018 6:04 Results for AM DIVISION HUMAN RESOURCES MANAGER this procedure are in the results section. CBC WITHOUT Timed 07/16/2018 6:03 Results for DIFFERENTIAL, B AM DIVISION HUMAN RESOURCES MANAGER this procedu re are in the results section. PHOSPHORUS Timed 07/16/2018 6:03 Results for (INORGANIC), S AM DIVISION HUMAN RESOURCES MANAGER this procedur e are in the results section. MAGNESIUM, S Timed 07/16/2018 6:03 Results for AM DIVISION HUMAN RESOURCES MANAGER this procedure are in the results section. CALCIUM, IONIZED, S/B Timed 07/16/2018 6:03 Res ults for AM DIVISION HUMAN RESOURCES MANAGER this procedure are in the results section. BASIC METABOLIC Timed 07/16/2018 6:03 Results f or PANEL, S/P AM DIVISION HUMAN RESOURCES MANAGER this procedure are in the results section. DX CHEST PORTABLE 1 RAD - Semiurgent 07/16/2018 5:22 R esults for VIEW (Fast; most ED AM DIVISION HUMAN RESOURCES MANAGER this procedur e patients; some are in the inpatients) results section. GLUCOSE POCT, B Routine 07/16/2018 4:26 Results f or AM DIVISION HUMAN RESOURCES MANAGER this procedure are in the results section. GLUCOSE POCT, B Timed 07/16/2018 4:26 Results f or AM DIVISION HUMAN RESOURCES MANAGER this procedure are in the results section. GLUCOSE POCT, B Routine 07/16/2018 12:57 Results for AM DIVISION HUMAN RESOURCES MANAGER this procedure are in the results section. GLUCOSE POCT, B Timed 07/16/2018 12:57 Results for AM DIVISION HUMAN RESOURCES MANAGER this procedure are in the results section. DX ABDOMEN PORTABLE RAD - Routine 07/16/2018 12:26 Res ults for ANTERIOR POSTERIOR 1 (most inpatients AM DIVISION HUMAN RESOURCES MANAGER thi s procedure VIEW and all are in the outpatients) results section. CBC WITHOUT Timed 07/16/2018 12:13 Results for DIFFERENTIAL, B AM DIVISION HUMAN RESOURCES MANAGER this procedu re are in the results section. ABG AND LYTES CG8+, Routine 07/15/2018 11:00 Resu lts for POCT, B PM DIVISION HUMAN RESOURCES MANAGER this procedure are in the results section. PATIENT STATUS STAT 07/15/2018 10:59 Results f or PM DIVISION HUMAN RESOURCES MANAGER this procedure are in the results section. BLOOD GAS, POCT, B STAT 07/15/2018 10:59 Resul ts for PM DIVISION HUMAN RESOURCES MANAGER this procedure are in the results section. ABG W/O COOX STAT 07/15/2018 10:59 Results for PM DIVISION HUMAN RESOURCES MANAGER this procedure are in the results section. CBC WITHOUT STAT 07/15/2018 10:58 Results for DIFFERENTIAL, B PM DIVISION HUMAN RESOURCES MANAGER this procedu re are in the results section. BASIC METABOLIC STAT 07/15/2018 10:58 Results for PANEL, S/P PM DIVISION HUMAN RESOURCES MANAGER this procedure are in the results section. THROMBOELASTOGRAPH, STAT 07/15/2018 10:56 Resu lts for KAOLIN, B PM DIVISION HUMAN RESOURCES MANAGER this procedure are in the results section. MECHANICAL Routine 07/15/2018 10:26 VENTILATION PM DIVISION HUMAN RESOURCES MANAGER SUPPLEMENTAL ORDER SET TRIGGER ADULT OXYGEN THERAPY Routine 07/15/2018 10:22 PM DIVISION HUMAN RESOURCES MANAGER ADULT OXYGEN THERAPY Routine 07/15/2018 10:22 PM DIVISION HUMAN RESOURCES MANAGER AIRWAY CARE Routine 07/15/2018 10:22 PM DIVISION HUMAN RESOURCES MANAGER PULSE OXIMETRY, Routine 07/15/2018 10:22 CONTINUOUS PM DIVISION HUMAN RESOURCES MANAGER PULSE OXIMETRY, Routine 07/15/2018 10:22 CONTINUOUS PM DIVISION HUMAN RESOURCES MANAGER MECHANICAL VENTILATOR Routine 07/15/2018 10:22 PM DIVISION HUMAN RESOURCES MANAGER MECHANICAL VENTILATOR Routine 07/15/2018 10:22 PM DIVISION HUMAN RESOURCES MANAGER MECHANICAL VENTILATOR Routine 07/15/2018 10:22 PM DIVISION HUMAN RESOURCES MANAGER MECHANICAL VENTILATOR Routine 07/15/2018 10:22 PM DIVISION HUMAN RESOURCES MANAGER MECHANICAL VENTILATOR Routine 07/15/2018 10:22 PM DIVISION HUMAN RESOURCES MANAGER INTUBATION Routine 07/15/2018 10:22 PM DIVISION HUMAN RESOURCES MANAGER DX ABDOMEN 1 VIEW RAD - Routine 07/15/2018 9:58 Result s for (most inpatients PM DIVISION HUMAN RESOURCES MANAGER this proced ure and all are in the outpatients) results section. DX CHEST PORTABLE 1 RAD - Routine 07/15/2018 9:57 Resu lts for VIEW (most inpatients PM DIVISION HUMAN RESOURCES MANAGER this proced ure and all are in the outpatients) results section. PATIENT STATUS STAT 07/15/2018 8:52 Results fo r PM DIVISION HUMAN RESOURCES MANAGER this procedure are in the results section. SODIUM, B STAT 07/15/2018 8:52 Results for PM DIVISION HUMAN RESOURCES MANAGER this procedure are in the results section. ABG W/COOX STAT 07/15/2018 8:52 Results for PM DIVISION HUMAN RESOURCES MANAGER this procedure are in the results section. POTASSIUM, B STAT 07/15/2018 8:52 Results for PM DIVISION HUMAN RESOURCES MANAGER this procedure are in the results section. GLUCOSE, WHOLE BLOOD STAT 07/15/2018 8:52 Resu lts for PM DIVISION HUMAN RESOURCES MANAGER this procedure are in the results section. CALCIUM, IONIZED, S/B STAT 07/15/2018 8:52 Res ults for PM DIVISION HUMAN RESOURCES MANAGER this procedure are in the results section. CRITICAL CARE Routine 07/15/2018 8:39 Results for PM DIVISION HUMAN RESOURCES MANAGER this procedure are in the results section. PLATELETS, B STAT 07/15/2018 8:07 Results for PM DIVISION HUMAN RESOURCES MANAGER this procedure are in the results section. LACTATE, B STAT 07/15/2018 8:02 Results for PM DIVISION HUMAN RESOURCES MANAGER this procedure are in the results section. PATIENT STATUS STAT 07/15/2018 8:02 Results fo r PM DIVISION HUMAN RESOURCES MANAGER this procedure are in the results section. SODIUM, B STAT 07/15/2018 8:02 Results for PM DIVISION HUMAN RESOURCES MANAGER this procedure are in the results section. ABG W/COOX STAT 07/15/2018 8:02 Results for PM DIVISION HUMAN RESOURCES MANAGER this procedure are in the results section. POTASSIUM, B STAT 07/15/2018 8:02 Results for PM DIVISION HUMAN RESOURCES MANAGER this procedure are in the results section. GLUCOSE, WHOLE BLOOD STAT 07/15/2018 8:02 Resu lts for PM DIVISION HUMAN RESOURCES MANAGER this procedure are in the results section. CALCIUM, IONIZED, S/B STAT 07/15/2018 8:02 Res ults for PM DIVISION HUMAN RESOURCES MANAGER this procedure are in the results section. AUTOLOGOUS RED BLOOD Routine 07/15/2018 7:53 CELLS-CELL SALVAGE PM DIVISION HUMAN RESOURCES MANAGER AUTOLOGOUS RED BLOOD Routine 07/15/2018 7:31 CELLS-CELL SALVAGE PM DIVISION HUMAN RESOURCES MANAGER SURGICAL PATHOLOGY, Routine 07/15/2018 7:28 Resul ts for FROZEN LAB PM DIVISION HUMAN RESOURCES MANAGER this procedure are in the results section. LACTATE, B STAT 07/15/2018 7:24 Results for PM DIVISION HUMAN RESOURCES MANAGER this procedure are in the results section. PATIENT STATUS STAT 07/15/2018 7:24 Results fo r PM DIVISION HUMAN RESOURCES MANAGER this procedure are in the results section. SODIUM, B STAT 07/15/2018 7:24 Results for PM DIVISION HUMAN RESOURCES MANAGER this procedure are in the results section. ABG W/COOX STAT 07/15/2018 7:24 Results for PM DIVISION HUMAN RESOURCES MANAGER this procedure are in the results section. POTASSIUM, B STAT 07/15/2018 7:24 Results for PM DIVISION HUMAN RESOURCES MANAGER this procedure are in the results section. GLUCOSE, WHOLE BLOOD STAT 07/15/2018 7:24 Resu lts for PM DIVISION HUMAN RESOURCES MANAGER this procedure are in the results section. CALCIUM, IONIZED, S/B STAT 07/15/2018 7:24 Res ults for PM DIVISION HUMAN RESOURCES MANAGER this procedure are in the results section. AUTOLOGOUS RED BLOOD Routine 07/15/2018 7:23 CELLS-CELL SALVAGE PM DIVISION HUMAN RESOURCES MANAGER ACTIVATED PARTIAL STAT 07/15/2018 7:23 Results for THROMBOPLASTIN TIME PM DIVISION HUMAN RESOURCES MANAGER this pro cedure (APTT), P are in the results section. PROTHROMBIN TIME STAT 07/15/2018 7:23 Results for (PT), P PM DIVISION HUMAN RESOURCES MANAGER this procedure are in the results section. FIBRINOGEN, P STAT 07/15/2018 7:23 Results for PM DIVISION HUMAN RESOURCES MANAGER this procedure are in the results section. PLATELETS, B STAT 07/15/2018 7:23 Results for PM DIVISION HUMAN RESOURCES MANAGER this procedure are in the results section. TRANSFUSE EMERGENCY Routine 07/15/2018 7:22 RELEASED PLATELETS PM DIVISION HUMAN RESOURCES MANAGER PREPARE PLATELETS STAT 07/15/2018 7:15 PM DIVISION HUMAN RESOURCES MANAGER PREPARE FRESH FROZEN STAT 07/15/2018 7:15 PLASMA PM DIVISION HUMAN RESOURCES MANAGER PREPARE FRESH FROZEN STAT 07/15/2018 7:15 PLASMA PM DIVISION HUMAN RESOURCES MANAGER PREPARE RED BLOOD STAT 07/15/2018 7:15 CELLS PM DIVISION HUMAN RESOURCES MANAGER PREPARE RED BLOOD STAT 07/15/2018 7:15 CELLS PM DIVISION HUMAN RESOURCES MANAGER PREPARE RED BLOOD STAT 07/15/2018 7:15 CELLS PM DIVISION HUMAN RESOURCES MANAGER TYPE AND SCREEN STAT 07/15/2018 7:15 Results f or PM DIVISION HUMAN RESOURCES MANAGER this procedure are in the results section. EXPLORATORY 07/15/2018 6:22 LAPAROTOMY PM DIVISION HUMAN RESOURCES MANAGER SPLENECTOMY 07/15/2018 6:22 PM DIVISION HUMAN RESOURCES MANAGER documented in this encounter Results DX Chest AP or PA and Lateral 2 Views (08/06/2018 10:09 AM DIVISION HUMAN RESOURCES MANAGER) Anatomical Region Laterality Modality Chest, Thoracic RST LOS, Thoracic ARZ LOS, Thoracic N/A Digital Radiography FLA LOS Specimen (Source) Anatomical Collection Method Collection Time Re ceived Time Location / / Volume Laterality 08/06/2018 10:16 AM DIVISION HUMAN RESOURCES MANAGER Impressions 08/06/2018 10:18 AM DIVISION HUMAN RESOURCES MANAGER IMPRESSION: Small left effusion has increased compared to prior. Multiple left-sided rib fractures. No pneumothora x. Heart size and pulmonary vasculature are normal. Narrative 08/06/2018 10:18 AM DIVISION HUMAN RESOURCES MANAGER EXAM: ??DX CHEST AP OR PA AND [...] Chest Portable 1 View (07/22/2018 8:28 AM DIVISION HUMAN RESOURCES MANAGER) Anatomical Region Laterality Modality Chest, Thoracic RST LOS, Thoracic ARZ LOS, Thoracic N/A Digital Radiography FLA LOS Specimen (Source) Anatomical Collection Method Collection Time Re ceived Time Location / / Volume Laterality 07/22/2018 8:33 AM DIVISION HUMAN RESOURCES MANAGER Impressions 07/22/2018 8:34 AM DIVISION HUMAN RESOURCES MANAGER IMPRESSION: ??Since 07/21/2018, no significant change. Small left pleural effusion with basilar atelectasis. Multiple left rib fractures. No pneumothorax The right lung is clear. Narrative 07/22/2018 8:34 AM DIVISION HUMAN RESOURCES MANAGER EXAM: ??DX CHEST PORTABLE 1 VIEW Procedure Note Rachelle Armenta M.D. - 07/22/2018Fo rmatting of this note might be different from the original. EXAM: DX CHEST PORTABLE 1 VIEW IMPRESSION: Since 07/21/2018, no signific ant change. Small left pleural effusion with basilar atelectasis. Multiple left rib fractures. No pneumothorax The right lung is clear. Nadir Talamantes APRNNManinder., M.S.N. IMG DIAGNOSTIC IMAG ING PROCEDURES Phosphorus Inorganic (07/22/2018 8:20 AM DIVISION HUMAN RESOURCES MANAGER) Analysis Performed At Patho logist Time Signature Phosphorus 3.0 2.5 - 4.5 07/22/2018 [facility] (Inorganic), S mg/dL 9:39 AM DIVISION HUMAN RESOURCES MANAGER LABORATORIES [facility] Specimen Anatomical Collection Method Collection Time Receive d Time (Source) Location / / Volume Laterality Blood (Blood, 07/22/2018 8:20 AM 07/22/19 19 8:43 Venous) DIVISION HUMAN RESOURCES MANAGER AM DIVISION HUMAN RESOURCES MANAGER Mihaela Talamantes APRN.N.Hayden., M.S.N. LAB BLOOD ADD-ON Performing Organization Address City/State/ZIP Code Phon e Number [facility] - [address] [place], [place] [address] [facility] (ABNORMAL) CBC without Differential (07/22/2018 8:20 AM DIVISION HUMAN RESOURCES MANAGER) Patholo gist Method Time Signature Hemoglobin 14.6 11.6 - 07/22/2018 [facility] 15.0 g/dL 8:59 AM DIVISION HUMAN RESOURCES MANAGER [facility]ATORIES [facility] Hematocrit 45.9 (H) 35.5 - 07/22/2018 [facility] 44.9 % 8:59 AM DIVISION HUMAN RESOURCES MANAGER LABORATORIES - [facility] Erythrocytes 5.01 3.92 - 07/22/2018 [facility] 5.13 8:59 AM DIVISION HUMAN RESOURCES MANAGER LABORATORIES - x10(12)/L [facility] MCV 91.6 78.2 - 07/22/2018 [facility] 97.9 fL 8:59 AM DIVISION HUMAN RESOURCES MANAGER LABORATORIES - [facility] RBC Distrib 15.2 12.2 - 07/22/2018 [facility] Width 16.1 % 8:59 AM DIVISION HUMAN RESOURCES MANAGER LABORATORIES - [facility] Platelet Count 415 (H) 157 - 371 07/22/2018 [facility] x10(9)/L 8:59 AM DIVISION HUMAN RESOURCES MANAGER LABORATORIES - [facility] Leukocytes 7.7 3.4 - 9.6 07/22/2018 [facility] x10(9)/L 8:59 AM DIVISION HUMAN RESOURCES MANAGER LABORATORIES - [facility] Specimen Anatomical Collection Method Collection Time Receive d Time (Source) Location / / Volume Laterality Blood (Blood, 07/22/2018 8:20 AM 07/22/19 19 8:43 Venous) DIVISION HUMAN RESOURCES MANAGER AM DIVISION HUMAN RESOURCES MANAGER Julio Talamantes APRN.Hayden., M.S.N. LAB BLOOD ADD-ON Performing Organization Address City/State/ZIP Code Phon e Number [facility] - [address] [place] [address] [facility] (ABNORMAL) BMP (Basic Metabolic Panel) (07/22/2018 8:20 AM DIVISION HUMAN RESOURCES MANAGER) [facility] gist Method Time Signature Potassium, S 4.7 3.6 - 5.2 07/22/2018 [facility] mmol/L 9:39 AM DIVISION HUMAN RESOURCES MANAGER LABORATORIES - [facility] Sodium, S 142 135 - 145 07/22/2018 [facility] mmol/L 9:39 AM DIVISION HUMAN RESOURCES MANAGER LABORATORIES - [facility] Chloride, S 102 98 - 107 07/22/2018 [facility] mmol/L 9:39 AM DIVISION HUMAN RESOURCES MANAGER LABORATORIES - [facility] Bicarbonate, S 27 22 - 29 07/22/2018 [facility] mmol/L 9:39 AM DIVISION HUMAN RESOURCES MANAGER LABORATORIES - [facility] Anion Gap 13 7 - 15 07/22/2018 [facility] 9:39 AM DIVISION HUMAN RESOURCES MANAGER LABORATORIES - [facility] BUN (Blood 12 6 - 21 07/22/2018 [facility] Urea mg/dL 9:39 AM DIVISION HUMAN RESOURCES MANAGER LABORATORIES - Nitrogen), S [facility] Creatinine, S 0.54 (L) 0.59 - 07/22/2018 [facility] 1.04 9:39 AM DIVISION HUMAN RESOURCES MANAGER LABORATORIES - mg/dL [facility] eGFR-Non >90 >=60 07/22/2018 [facility] Black/ mL/min/BS 9:39 AM DIVISION HUMAN RESOURCES MANAGER LABORATORIES - [place] [facility] Comment: ----ADDITIONAL INFORMATION---- Estimated GFR calculated using the 2009 CKD_EPI creatinine equation. eGFR-Black/ >90 >=60 mL/min/BSA 07/22/2018 9:39 [facility] [place] AM DIVISION HUMAN RESOURCES MANAGER LABORATORIES - [facility] Comment: ----ADDITIONAL INFORMATION---- Estimated GFR calculated using the 2009 CKD_EPI creatinine equation. Calcium, Total, S 9.2 8.8 - 10.2 mg/dL 07/22/2018 9:39 AM [facility] DIVISION HUMAN RESOURCES MANAGER LABORATORIES - [facility] S Glucose, S 126 70 - 140 mg/dL 07/22/2018 9:39 AM [facility] DIVISION HUMAN RESOURCES MANAGER LABORATORIES - [facility] S Specimen Anatomical Collection Method Collection Time Receive d Time (Source) Location / / Volume Laterality Blood (Blood, 07/22/2018 8:20 AM 07/22/19 19 8:43 Venous) DIVISION HUMAN RESOURCES MANAGER AM DIVISION HUMAN RESOURCES MANAGER Salty Hernandez APRN, C.N.P., M.S.N. LAB BLOOD ADD-ON Performing Organization Address City/State/ZIP Code Phon e Number [facility] - [address] [address] [facility] DX Chest Portable 1 View (07/21/2018 6:03 AM DIVISION HUMAN RESOURCES MANAGER) Anatomical Region Laterality Modality Chest, Thoracic RST LOS, Thoracic ARZ LOS, Thoracic N/A Digital Radiography FLA LOS Specimen (Source) Anatomical Collection Method Collection Time Re ceived Time Location / / Volume Laterality 07/21/2018 6:06 AM DIVISION HUMAN RESOURCES MANAGER Impressions 07/21/2018 7:59 AM DIVISION HUMAN RESOURCES MANAGER IMPRESSION: ??Since 07/20/2018, removal of the left chest tube. Otherwise, no significant change. Tiny residual left a pical pneumothorax. Small left pleural effusion. Left basilar atelectasis or co nsolidation. Multiple left rib fractures. Bilateral cervical ribs. I have personally reviewed the images an d agree with this interpretation. Narrative 07/21/2018 7:59 AM DIVISION HUMAN RESOURCES MANAGER EXAM: ??DX CHEST PORTABLE 1 VIEW Procedure [...] d agree with this interpretation. Nadir Talamantes APRNN.Chang, M.S.N. [facility] [place] DIAGNOSTIC IMAG ING PROCEDURES DX Chest Portable 1 View (07/20/2018 6:22 AM DIVISION HUMAN RESOURCES MANAGER) Anatomical Region Laterality Modality Chest, Thoracic RST LOS, Thoracic ARZ LOS, Thoracic N/A Digital Radiography FLA LOS Specimen (Source) Anatomical Collection Method Collection Time Re ceived Time Location / / Volume Laterality 07/20/2018 6:23 AM DIVISION HUMAN RESOURCES MANAGER Impressions 07/20/2018 8:45 AM DIVISION HUMAN RESOURCES MANAGER IMPRESSION: ??Since 07/19/2018, further decrease in size of the tiny left apical pneumothorax. Otherwise, no significant change. Left chest tube. Small left pleural effusion. Left basilar atelectas is or consolidation. Multiple left rib fractures. Bilateral cervical ribs. I have personally reviewed the images an d agree with this interpretation. Narrative 07/20/2018 8:45 AM DIVISION HUMAN RESOURCES MANAGER EXAM: ??DX CHEST PORTABLE 1 VIEW Procedure [...] agree with this interpretation. Dee Phelan M.D. [facility] DIAGNOSTIC IMAGING PROCE DURES DX Chest Portable 1 View (07/19/2018 5:14 AM DIVISION HUMAN RESOURCES MANAGER) Anatomical Region Laterality Modality Chest, Thoracic RST LOS, Thoracic ARZ LOS, Thoracic N/A Digital Radiography FLA LOS Specimen (Source) Anatomical Collection Method Collection Time Re ceived Time Location / / Volume Laterality 07/19/2018 5:17 AM DIVISION HUMAN RESOURCES MANAGER Impressions 07/19/2018 5:19 AM DIVISION HUMAN RESOURCES MANAGER IMPRESSION: ??Since yesterday, the small left apical pneumothorax has decreased. Otherwise no change. Left chest tube. Sm all left pleural effusion. Atelectasis/infiltrate left lower lung. Multiple left rib fractures. Narrative 07/19/2018 5:19 AM DIVISION HUMAN RESOURCES MANAGER EXAM: ??DX CHEST PORTABLE 1 VIEW Procedure Note Christin Jonas M.D. - 07/19/2018Form atting of this note might be different from the original. EXAM: DX CHEST PORTABLE 1 VIEW IMPRESSION: Since yesterday, the small l eft apical pneumothorax has decreased. Otherwise no change. Left chest tube. Sm all left pleural effusion. Atelectasis/infiltrate left lower lung. Multiple left rib fractures. Sheela Peoples APRN, R.N. IMG DIAGNOSTIC IMAGING [place] OCEDURES CBC without Differential (07/18/2018 9:35 PM DIVISION HUMAN RESOURCES MANAGER) [facility] Method Time Signature Hemoglobin 14.0 11.6 - 07/18/2018 [facility] 15.0 g/dL 10:11 PM DIVISION HUMAN RESOURCES MANAGER [facility] Hematocrit 42.3 35.5 - 07/18/2018 [facility] 44.9 % 10:11 PM DIVISION HUMAN RESOURCES MANAGER LAB[facility]ATOR[facility] Erythrocytes 4.70 3.92 - 07/18/2018 [facility] 5.13 10:11 PM DIVISION HUMAN RESOURCES MANAGER LABORATORIES - x10(12)/L [facility] MCV 90.0 78.2 - 07/18/2018 [facility] 97.9 fL 10:11 PM DIVISION HUMAN RESOURCES MANAGER [facility] RBC Distrib Width 15.9 12.2 - 07/18/2018 [facility] 16.1 % 10:11 PM DIVISION HUMAN RESOURCES MANAGER [facility] Platelet Count 176 157 - 371 07/18/2018 [facility] x10(9)/L 10:11 PM DIVISION HUMAN RESOURCES MANAGER LAB[facility]ATORIES [facility] Leukocytes 9.4 3.4 - 9.6 07/18/2018 [facility] x10(9)/L 10:11 PM [facility] Specimen Anatomical Collection Method Collection Time Receive d Time (Source) Location / / Volume Laterality Blood (Blood, 07/18/2018 9:35 PM 07/18/19 19 Venous) DIVISION HUMAN RESOURCES MANAGER 10:02 PM DIVISION HUMAN RESOURCES MANAGER Sheela Peoples APRN, R.N. LAB BLOOD ADD-ON Performing Organization Address City/[facility] Phon e Number [facility] - [address] (ABNORMAL) Phosphorus Inorganic (07/18/2018 9:34 PM DIVISION HUMAN RESOURCES MANAGER) Patholo gist Method Time Signature Phosphorus 2.2 (L) 2.5 - 4.5 07/18/2018 [facility] (Inorganic), S mg/dL 10:39 PM DIVISION HUMAN RESOURCES MANAGER LABORATORIES - [facility] Specimen Anatomical Collection Method Collection Time Receive d Time (Source) Location / / Volume Laterality Blood (Blood, 07/18/2018 9:34 PM 07/18/19 19 Venous) DIVISION HUMAN RESOURCES MANAGER 10:02 PM DIVISION HUMAN RESOURCES MANAGER Sheela Peoples APRN, R.N. LAB BLOOD ADD-ON Performing Organization Address City/[facility]/ZIP [facility] Phon e Number [facility] - [address] [place] [address] [facility] Magnesium (07/18/2018 9:34 PM DIVISION HUMAN RESOURCES MANAGER) P athologist Signature Magnesium, S 2.1 1.7 - 2.3 07/18/2018 [facility] mg/dL 10:39 PM DIVISION HUMAN RESOURCES MANAGER LABORATORIES [facility] Specimen Anatomical Collection Method Collection Time Receive d Time (Source) Location / / Volume Laterality Blood (Blood, 07/18/2018 9:34 PM 07/18/19 19 Venous) DIVISION HUMAN RESOURCES MANAGER 10:02 PM DIVISION HUMAN RESOURCES MANAGER Sheela Peoples APRN, R.N. LAB BLOOD ADD-ON Performing Organization Address City/[facility]/ZIP Code Phon e Number [facility] - [address] [address] [facility] (ABNORMAL) Basic Metabolic Panel (07/18/2018 9:34 PM DIVISION HUMAN RESOURCES MANAGER) P athologist Signature Potassium, S 4.1 3.6 - 5.2 07/18/2018 [facility] mmol/L 10:39 PM DIVISION HUMAN RESOURCES MANAGER [facility] Sodium, S 138 135 - 145 07/18/2018 [facility] mmol/L 10:39 PM DIVISION HUMAN RESOURCES MANAGER LABORATORIES - [facility] Chloride, S 99 98 - 107 07/18/2018 [facility] mmol/L 10:39 PM DIVISION HUMAN RESOURCES MANAGER LABORATORIES - [facility] Bicarbonate, S 29 22 - 29 07/18/2018 [facility] mmol/L 10:39 PM DIVISION HUMAN RESOURCES MANAGER LABORATORIES - [facility] Anion Gap 11 7 - 15 07/18/2018 [facility] 10:39 PM DIVISION HUMAN RESOURCES MANAGER LABORATORIES - [facility] BUN (Blood 15 6 - 21 07/18/2018 [facility] Urea mg/dL 10:39 PM DIVISION HUMAN RESOURCES MANAGER LABORATORIES - Nitrogen), S [facility] Creatinine, S 0.59 0.59 - 07/18/2018 [facility] 1.04 mg/dL 10:39 PM DIVISION HUMAN RESOURCES MANAGER LABORATORIES - [facility] eGFR-Non >90 >=60 07/18/2018 [facility] Black/ mL/min/BSA 10:39 PM DIVISION HUMAN RESOURCES MANAGER LABORATORIES - [facility] Comment: ----ADDITIONAL INFORMATION---- Estimated GFR calculated using the 2009 CKD_EPI creatinine equation. eGFR-Black/ >90 >=60 mL/min/BSA 07/18/2018 10:3 9 [facility] DIVISION HUMAN RESOURCES MANAGER LABORATORIES - [facility] Comment: ----ADDITIONAL INFORMATION---- Estimated GFR calculated using the 2009 CKD_EPI creatinine equation. Calcium, Total, S 8.6 (L) 8.8 - 10.2 07/18/2018 10:39 PM [facility] mg/dL DIVISION HUMAN RESOURCES MANAGER LABORATORIES - [facility] Glucose, S 112 70 - 140 mg/dL 07/18/2018 10:39 PM [facility] Specimen Anatomical Collection Method Collection Time Receive d Time (Source) Location / / Volume Laterality Blood (Blood, 07/18/2018 9:34 PM 07/18/19 19 Venous) DIVISION HUMAN RESOURCES MANAGER 10:02 PM DIVISION HUMAN RESOURCES MANAGER Sheela Peoples APRN RIsabel LAB BLOOD ADD-ON Performing Organization Address City/State/ZIP Code Phon e Number [facility] - [address] [place], [place] [address] [facility] DX Chest Portable 1 View (07/18/2018 3:46 PM DIVISION HUMAN RESOURCES MANAGER) Anatomical Region Laterality Modality Chest, Thoracic RST LOS, Thoracic ARZ LOS, Thoracic N/A Digital Radiography FLA LOS Specimen (Source) Anatomical Collection Method Collection Time Re ceived Time Location / / Volume Laterality 07/18/2018 3:58 PM DIVISION HUMAN RESOURCES MANAGER Impressions 07/18/2018 3:59 PM DIVISION HUMAN RESOURCES MANAGER IMPRESSION: ??Since earlier today, left chest tube has been placed. The left pleural effusion has decreased. Unchange d small left apical pneumothorax. Again seen are multiple left rib fractures. At electasis or infiltrate left lung base. Narrative 07/18/2018 3:59 PM DIVISION HUMAN RESOURCES MANAGER EXAM: ??DX CHEST PORTABLE 1 VIEW Procedure [...] or infiltrate left lung base. Sheela Peoples APRN, R.N. IMG DIAGNOSTIC IMAGING [place] OCEDURES Phosphorus Inorganic (07/18/2018 3:45 PM DIVISION HUMAN RESOURCES MANAGER) Analysis Performed At Path logist Time Signature Phosphorus 3.2 2.5 - 4.5 07/18/2018 [facility] (Inorganic), S mg/dL 5:49 PM DIVISION HUMAN RESOURCES MANAGER LABORATORIES - [facility] Specimen Anatomical Collection Method Collection Time Receive d Time (Source) Location / / Volume Laterality Blood (Blood, 07/18/2018 3:45 PM 07/18/19 19 4:04 Venous) DIVISION HUMAN RESOURCES MANAGER PM DIVISION HUMAN RESOURCES MANAGER Sheela Peoples APRN RAlberto. LAB BLOOD ADD-ON Performing Organization Address City/State/ZIP Code Phon e Number [facility] - [address] [place], [place] [address] [facility] (ABNORMAL) Basic Metabolic Panel (07/18/2018 3:45 PM DIVISION HUMAN RESOURCES MANAGER) [facility] Method Time Signature Potassium, P 4.7 3.6 - 5.2 07/18/2018 [facility] mmol/L 4:05 PM DIVISION HUMAN RESOURCES MANAGER LABORATORIES - [facility] Sodium, P 141 135 - 145 07/18/2018 [facility] mmol/L 4:05 PM DIVISION HUMAN RESOURCES MANAGER LABORATORIES - [facility] Chloride, P 100 98 - 107 07/18/2018 [facility] mmol/L 4:05 PM DIVISION HUMAN RESOURCES MANAGER LABORATORIES - [facility] Bicarbonate, P 33 (H) 22 - 29 07/18/2018 [facility] mmol/L 4:05 PM DIVISION HUMAN RESOURCES MANAGER LABORATORIES [facility] Anion Gap, P 8 7 - 15 07/18/2018 [facility] 4:05 PM DIVISION HUMAN RESOURCES MANAGER LABORATORIES - [facility] BUN (Blood 12 6 - 21 07/18/2018 [facility] Urea mg/dL 4:05 PM DIVISION HUMAN RESOURCES MANAGER LABORATORIES - Nitrogen), P [facility] Creatinine, P 0.57 (L) 0.59 - 07/18/2018 [facility] 1.04 4:05 PM DIVISION HUMAN RESOURCES MANAGER LABORATORIES - mg/dL [facility] eGFR-Black/Afr >90 >=60 07/18/2018 [facility] ican [place] mL/min/BS 4:05 PM DIVISION HUMAN RESOURCES MANAGER LABORATORIES - A [facility] Comment: ----ADDITIONAL INFORMATION---- Estimated GFR calculated using the 2009 CKD_EPI creatinine equation. eGFR Non-Black/ >90 >=60 mL/min/BSA 07/18/2018 4:05 [facility] Argentine PM DIVISION HUMAN RESOURCES MANAGER LABORATORIES - [facility] Comment: ----ADDITIONAL INFORMATION---- Estimated GFR calculated using the 2009 CKD_EPI creatinine equation. Calcium, Total, P 9.1 8.8 - 10.2 mg/dL 07/18/2018 4:05 PM [facility] DIVISION HUMAN RESOURCES MANAGER LABORATORIES - [facility] S Glucose, P 102 70 - 140 mg/dL 07/18/2018 4:05 PM [facility] DIVISION HUMAN RESOURCES MANAGER LABORATORIES - [facility] S Specimen Anatomical Collection Method Collection Time Receive d Time (Source) Location / / Volume Laterality Blood (Blood, 07/18/2018 3:45 PM 07/18/19 19 3:49 Venous) DIVISION HUMAN RESOURCES MANAGER PM DIVISION HUMAN RESOURCES MANAGER Sheela Peoples APRN, R.N. LAB BLOOD ADD-ON Performing Organization Address City/State/ZIP Code Phon e Number [facility] - [address] [place] [address] [facility] IA PLEURA DRAIN PERC WO IMG GUID (07/18/2018 2:35 PM DIVISION HUMAN RESOURCES MANAGER) Narrative Yeison Butt M.D. - 07/18/2018 2:35 PM DIVISION HUMAN RESOURCES MANAGER Salty Elena M.D. ? 07/18/2018 ??3:48 PM [...] decision maker: consent for transfusion was obtained [place] protocol ??All relevant documentation and testin g [...] : yes ?Site preparation: chlorhexidine Sedation/Anesthesia (see [facility] for exact d osages): ??Anesthesia method: procedural [...] ERABLES (ABNORMAL) Phosphorus Inorganic (07/18/2018 2:02 PM DIVISION HUMAN RESOURCES MANAGER) [facility] Method Time Signature Phosphorus 6.5 (H) 2.5 - 4.5 07/18/2018 [facility] (Inorganic), S mg/dL 3:21 PM DIVISION HUMAN RESOURCES MANAGER LABORATORIES - [facility] Specimen Anatomical Collection Method Collection Time Receive d Time (Source) Location / / Volume Laterality Blood (Blood, 07/18/2018 2:02 PM 07/18/19 19 2:20 Venous) DIVISION HUMAN RESOURCES MANAGER PM DIVISION HUMAN RESOURCES MANAGER Sheela Peoples APRN R.Vidya. LAB BLOOD ADD-ON Performing Organization Address City/[facility] Phon e Number [facility] - [address] [place] [address] [facility] Magnesium (07/18/2018 2:02 PM DIVISION HUMAN RESOURCES MANAGER) athologist Signature Magnesium, S 1.8 1.7 - 2.3 07/18/2018 [facility] mg/dL 3:21 PM DIVISION HUMAN RESOURCES MANAGER LABORATORIES - [facility] Specimen Anatomical Collection Method Collection Time Receive d Time (Source) Location / / Volume Laterality Blood (Blood, 07/18/2018 2:02 PM 07/18/19 19 2:20 Venous) DIVISION HUMAN RESOURCES MANAGER PM DIVISION HUMAN RESOURCES MANAGER Sheela Peoples APRN RAlberto. LAB BLOOD ADD-ON Performing Organization Address City/[facility] Phon e Number [facility] - [address] (ABNORMAL) Basic Metabolic Panel (07/18/2018 2:02 PM DIVISION HUMAN RESOURCES MANAGER) [facility] Method Time Signature Potassium, P 5.8 (H) 3.6 - 5.2 07/18/2018 [facility] mmol/L 2:22 PM DIVISION HUMAN RESOURCES MANAGER LABORATORIES - [facility] Sodium, P 139 135 - 145 07/18/2018 [facility] mmol/L 2:22 PM DIVISION HUMAN RESOURCES MANAGER LABORATORIES - [facility] Chloride, P 99 98 - 107 07/18/2018 [facility] mmol/L 2:22 PM DIVISION HUMAN RESOURCES MANAGER LABORATORIES - [facility] Bicarbonate, P 31 (H) 22 - 29 07/18/2018 [facility] mmol/L 2:22 PM DIVISION HUMAN RESOURCES MANAGER LABORATORIES - [facility] Anion Gap, P 9 7 - 15 07/18/2018 [facility] 2:22 PM DIVISION HUMAN RESOURCES MANAGER LABORATORIES - [facility] BUN (Blood 11 6 - 21 07/18/2018 [facility] Urea mg/dL 2:22 PM DIVISION HUMAN RESOURCES MANAGER LABORATORIES - Nitrogen), P [facility] Creatinine, P 0.61 0.59 - 07/18/2018 [facility] 1.04 mg/dL 2:22 PM DIVISION HUMAN RESOURCES MANAGER LABORATORIES [facility] eGFR-Black/Afr >90 >=60 07/18/2018 [facility] ican [place] mL/min/BSA 2:22 PM DIVISION HUMAN RESOURCES MANAGER LABORATORIES [facility] Comment: ----ADDITIONAL INFORMATION---- Estimated GFR calculated using the 2009 CKD_EPI creatinine equation. eGFR Non-Black/ >90 >=60 mL/min/BSA 07/18/2018 2:22 [facility] Argentine PM DIVISION HUMAN RESOURCES MANAGER LABORATORIES [facility] Comment: ----ADDITIONAL INFORMATION---- Estimated GFR calculated using the 2009 CKD_EPI creatinine equation. Calcium, Total, P 8.8 8.8 - 10.2 mg/dL 07/18/2018 2:22 PM [facility] DIVISION HUMAN RESOURCES MANAGER LABORATORIES [facility] Glucose, P 120 70 - 140 mg/dL 07/18/2018 2:22 PM [facility] Specimen Anatomical Collection Method Collection Time Receive d Time (Source) Location / / Volume Laterality Blood (Blood, 07/18/2018 2:02 PM 07/18/19 19 2:06 Venous) DIVISION HUMAN RESOURCES MANAGER PM DIVISION HUMAN RESOURCES MANAGER Sheela Peoples APRN, R.N. LAB BLOOD ADD-ON Performing Organization Address City/State/ZIP Code Phon e Number [facility] - [address] [place] [address] [facility] CT Retrospective 3D Post Processing (07/18/2018 11:33 AM DIVISION HUMAN RESOURCES MANAGER) Anatomical Region Laterality Modality Abdomen, Pelvis, Musculoskeletal RST LOS, Abdominal Computed Tomography ARZ LOS, Musculoskeletal ARZ LOS, Neuroradiology ARZ LOS, Thoracic ARZ LOS, Vascular Interventional ARZ LOS, Abdominal FLA LOS, Thoracic FLA LOS, Neuroradiology FLA LOS, Muskuloskeletal FLA LOS Specimen (Source) Anatomical Collection Method Collection Time Re ceived Time Location / / Volume Laterality 07/18/2018 12:49 PM DIVISION HUMAN RESOURCES MANAGER Impressions 07/18/2018 12:51 PM DIVISION HUMAN RESOURCES MANAGER IMPRESSION: 3-D images performed on an independent w orkstation and reside in the CT examination of the chest in [facility] 019. Narrative 07/18/2018 12:51 PM DIVISION HUMAN RESOURCES MANAGER EXAM: CT RETROSPECTIVE 3D POST PROCESSING 3D Post-Processing performed on an [employer] workstation. Procedure Note Cristofer De Oliveira M.D. - 07/18/2018Forma tting of this note might be different from the original. EXAM: CT RETROSPECTIVE 3D POST PROCESSIN G 3D Post-Processing performed on an [employer] workstation. IMPRESSION: 3-D images performed on an independent w orkstation and reside in the CT examination of the chest in [facility] 019. Salty GARCIA CT PROCEDURES CT Chest with IV Contrast (07/18/2018 11:14 AM DIVISION HUMAN RESOURCES MANAGER) Anatomical Region Laterality Modality Chest, Thoracic RST LOS, Thoracic ARZ LOS, Thoracic N/A Computed Tomography ARZ LOS, Thoracic FLA LOS Specimen (Source) Anatomical Collection Method Collection Time Re ceived Time Location / / Volume Laterality 07/18/2018 11:17 AM DIVISION HUMAN RESOURCES MANAGER Impressions 07/18/2018 12:16 PM DIVISION HUMAN RESOURCES MANAGER IMPRESSION: 1. Enlarging left and new trace [...] likely post operative. Narrative 07/18/2018 12:16 PM DIVISION HUMAN RESOURCES MANAGER EXAM: CT CHEST WITH IV CONTRAST No [...] is likely post operative. Sheela Peoples APRN, RAlberto. IMG CT PROCEDURES (ABNORMAL) Phosphorus Inorganic (07/18/2018 6:29 AM DIVISION HUMAN RESOURCES MANAGER) [facility] VHX Method Time Signature Phosphorus 1.9 (L) 2.5 - 4.5 07/18/2018 [facility] (Inorganic), S mg/dL 7:21 AM DIVISION HUMAN RESOURCES MANAGER LABORATORIES [facility] Specimen Anatomical Collection Method Collection Time Receive d Time (Source) Location / / Volume Laterality Blood (Blood, 07/18/2018 6:29 AM 07/18/19 19 6:42 Venous) DIVISION HUMAN RESOURCES MANAGER AM DIVISION HUMAN RESOURCES MANAGER Moustapha Knott APRN, CYvonneN.P. LAB BLOOD ADD-ON Performing Organization Address City/State/ZIP Code Phon e Number [facility] - [address] [place] [address] [facility] (ABNORMAL) CBC without Differential (07/18/2018 6:29 AM DIVISION HUMAN RESOURCES MANAGER) [facility] Method Time Signature Hemoglobin 14.6 11.6 - 07/18/2018 [facility] 15.0 g/dL 6:56 AM DIVISION HUMAN RESOURCES MANAGER LABORATORIES [facility] Hematocrit 43.8 35.5 - 07/18/2018 [facility] 44.9 % 6:56 AM DIVISION HUMAN RESOURCES MANAGER LABORATORIES [facility] Erythrocytes 4.89 3.92 - 07/18/2018 [facility] 5.13 6:56 AM DIVISION HUMAN RESOURCES MANAGER LABORATORIES - x10(12)/L [facility] MCV 89.6 78.2 - 07/18/2018 [facility] 97.9 fL 6:56 AM DIVISION HUMAN RESOURCES MANAGER LABORATORIES [facility] RBC Distrib 16.3 (H) 12.2 - 07/18/2018 [facility] Width 16.1 % 6:56 AM DIVISION HUMAN RESOURCES MANAGER LABORATORIES - [facility] Platelet Count 166 157 - 371 07/18/2018 [facility] x10(9)/L 6:56 AM DIVISION HUMAN RESOURCES MANAGER LABORATORIES - [facility] Leukocytes 12.5 (H) 3.4 - 9.6 07/18/2018 [facility] x10(9)/L 6:56 AM DIVISION HUMAN RESOURCES MANAGER LABORATORIES - [facility] Specimen Anatomical Collection Method Collection Time Receive d Time (Source) Location / / Volume Laterality Blood (Blood, 07/18/2018 6:29 AM 07/18/19 19 6:42 Venous) DIVISION HUMAN RESOURCES MANAGER AM DIVISION HUMAN RESOURCES MANAGER Moustapha Knott APRN C.N.P. LAB BLOOD ADD-ON Performing Organization Address City/State/ZIP Code Phon e Number [facility] - [address] [place] [address] [facility] (ABNORMAL) Basic Metabolic Panel (07/18/2018 6:29 AM DIVISION HUMAN RESOURCES MANAGER) [facility] gist Method Time Signature Potassium, S 3.7 3.6 - 5.2 07/18/2018 [facility] mmol/L 7:21 AM DIVISION HUMAN RESOURCES MANAGER LABORATORIES - [facility] Sodium, S 141 135 - 145 07/18/2018 [facility] mmol/L 7:21 AM DIVISION HUMAN RESOURCES MANAGER LABORATORIES - [facility] Chloride, S 102 98 - 107 07/18/2018 [facility] mmol/L 7:21 AM DIVISION HUMAN RESOURCES MANAGER LABORATORIES - [facility] Bicarbonate, S 26 22 - 29 07/18/2018 [facility] mmol/L 7:21 AM DIVISION HUMAN RESOURCES MANAGER LABORATORIES - [facility] Anion Gap 13 7 - 15 07/18/2018 [facility] 7:21 AM DIVISION HUMAN RESOURCES MANAGER LABORATORIES - [facility] BUN (Blood 9 6 - 21 07/18/2018 [facility] Urea mg/dL 7:21 AM DIVISION HUMAN RESOURCES MANAGER LABORATORIES - Nitrogen), S [facility] Creatinine, S 0.56 (L) 0.59 - 07/18/2018 [facility] 1.04 7:21 AM DIVISION HUMAN RESOURCES MANAGER LABORATORIES - mg/dL [facility] eGFR-Non >90 >=60 07/18/2018 [facility] Black/ mL/min/BS 7:21 AM DIVISION HUMAN RESOURCES MANAGER LABORATORIES - [place] A [facility] Comment: ----ADDITIONAL INFORMATION---- Estimated GFR calculated using the 2009 CKD_EPI creatinine equation. eGFR-Black/ >90 >=60 mL/min/BSA 07/18/2018 7:21 [facility] Argentine AM DIVISION HUMAN RESOURCES MANAGER LABORATORIES - [facility] Comment: ----ADDITIONAL INFORMATION---- Estimated GFR calculated using the 2009 CKD_EPI creatinine equation. Calcium, Total, S 8.6 (L) 8.8 - 10.2 07/18/2018 7:21 AM [facility] mg/dL DIVISION HUMAN RESOURCES MANAGER LABORATORIES - [facility] Glucose, S 77 70 - 140 mg/dL 07/18/2018 7:21 AM [facility] - [facility] Specimen Anatomical Collection Method Collection Time Receive d Time (Source) Location / / Volume Laterality Blood (Blood, 07/18/2018 6:29 AM 07/18/19 6:42 Venous) DIVISION HUMAN RESOURCES MANAGER AM DIVISION HUMAN RESOURCES MANAGER Moustapha Knott APRN, C.N.P. LAB BLOOD ADD-ON Performing Organization Address City/State/ZIP Code Phon e Number [facility] - [address] [place] [address] [facility] DX Chest Portable 1 View (07/18/2018 5:22 AM DIVISION HUMAN RESOURCES MANAGER) Anatomical Region Laterality Modality Chest, Thoracic RST LOS, Thoracic ARZ LOS, Thoracic N/A Digital Radiography FLA LOS Specimen (Source) Anatomical Collection Method Collection Time Re ceived Time Location / / Volume Laterality 07/18/2018 5:37 AM DIVISION HUMAN RESOURCES MANAGER Impressions 07/18/2018 5:40 AM DIVISION HUMAN RESOURCES MANAGER IMPRESSION: ??Small left apical pneumothorax, stable since yesterday. Left basilar chest tube. Dense consolidation left base behind the heart. Left pleural effusion, possibly hemothorax, related t o left rib fractures. Right lung clear. Narrative 07/18/2018 5:40 AM DIVISION HUMAN RESOURCES MANAGER EXAM: ??DX CHEST PORTABLE 1 VIEW Procedure [...] Knott APRN, C.N.P. IMG DIAGNOSTIC IMAGING PROCE BRYANT DX Chest Portable 1 View (07/17/2018 5:21 AM DIVISION HUMAN RESOURCES MANAGER) Anatomical Region Laterality Modality Chest, Thoracic RST LOS, Thoracic ARZ LOS, Thoracic N/A Digital Radiography FLA LOS Specimen (Source) Anatomical Collection Method Collection Time Re ceived Time Location / / Volume Laterality 07/17/2018 5:26 AM DIVISION HUMAN RESOURCES MANAGER Impressions 07/17/2018 5:33 AM DIVISION HUMAN RESOURCES MANAGER IMPRESSION: ??Since yesterday the ETT and NG have been removed. New retrocardiac and left lower lung opacities. A tiny le ft apical pneumothorax has slightly increased in size. Left pleural effusion . Left basilar chest tube or left upper quadrant surgical drain. Narrative 07/17/2018 5:33 AM DIVISION HUMAN RESOURCES MANAGER EXAM: ??DX CHEST PORTABLE 1 VIEW Procedure [...] PROCE BRYANT Glucose, POCT (07/17/2018 4:24 AM DIVISION HUMAN RESOURCES MANAGER) Analysis Performed At Patho logist Time Signature Glucose, Collected DEFAULT 07/17/2018 [facility] POCT, B 4:24 AM DIVISION HUMAN RESOURCES MANAGER LABORATORIES - [facility] Specimen Anatomical Collection Method Collection Time Receive d Time (Source) Location / / Volume Laterality Blood (Blood, 07/17/2018 4:24 AM 07/17/19 19 4:24 Capillary) DIVISION HUMAN RESOURCES MANAGER AM DIVISION HUMAN RESOURCES MANAGER Moustapha Knott APRN C.N.P. LAB POCT ORDERABLES-MANUAL Performing Organization Address City/State/ZIP Code Phon e Number [facility] - [address] [place], [place] [address] [facility] Magnesium (07/17/2018 4:24 AM DIVISION HUMAN RESOURCES MANAGER) P athologist Signature Magnesium, S 2.1 1.7 - 2.3 07/17/2018 [facility] mg/dL 5:21 AM DIVISION HUMAN RESOURCES MANAGER LABORATORIES [facility] Specimen Anatomical Collection Method Collection Time Receive d Time (Source) Location / / Volume Laterality Blood (Blood, 07/17/2018 4:24 AM 07/17/19 19 4:44 Venous) DIVISION HUMAN RESOURCES MANAGER AM DIVISION HUMAN RESOURCES MANAGER Mariano Ferrer M.D., Ph.D. LAB BLOOD ADD-ON Performing Organization Address City/[facility] Code Phon e Number [facility] - [address] [place] [address] [facility] (ABNORMAL) CBC without Differential (07/17/2018 4:24 AM DIVISION HUMAN RESOURCES MANAGER) Patholo gist Method Time Signature Hemoglobin 14.9 11.6 - 07/17/2018 [facility] 15.0 g/dL 5:03 AM DIVISION HUMAN RESOURCES MANAGER [facility] Hematocrit 44.5 35.5 - 07/17/2018 [facility] 44.9 % 5:03 AM [facility] Erythrocytes 5.09 3.92 - 07/17/2018 [facility] 5.13 5:03 AM DIVISION HUMAN RESOURCES MANAGER LABORATORIES - x10(12)/L [facility] MCV 87.4 78.2 - 07/17/2018 [facility] 97.9 fL 5:03 AM [facility] RBC Distrib 16.7 (H) 12.2 - 07/17/2018 [facility] Width 16.1 % 5:03 AM [facility] Platelet Count 112 (L) 157 - 371 07/17/2018 [facility] x10(9)/L 5:03 AM [facility] Leukocytes 11.0 (H) 3.4 - 9.6 07/17/2018 [facility] x10(9)/L 5:03 AM [facility] Specimen Anatomical Collection Method Collection Time Receive d Time (Source) Location / / Volume Laterality Blood (Blood, 07/17/2018 4:24 AM 07/17/19 19 4:44 Venous) DIVISION HUMAN RESOURCES MANAGER AM DIVISION HUMAN RESOURCES MANAGER Mariano Ferrer M.D., Ph.D. LAB BLOOD ADD-ON Performing Organization Address City/[facility]/ZIP Code Phon e Number [facility] - [address] [address] [facility] (ABNORMAL) Basic Metabolic Panel (07/17/2018 4:24 AM DIVISION HUMAN RESOURCES MANAGER) P athologist Signature Potassium, S 4.0 3.6 - 5.2 07/17/2018 [facility] mmol/L 5:21 AM DIVISION HUMAN RESOURCES MANAGER LABORATORIES [facility] Sodium, S 139 135 - 145 07/17/2018 [facility] mmol/L 5:21 AM DIVISION HUMAN RESOURCES MANAGER LABORATORIES - [facility] Chloride, S 104 98 - 107 07/17/2018 [facility] mmol/L 5:21 AM [facility] - [facility] Bicarbonate, S 23 22 - 29 07/17/2018 [facility] mmol/L 5:21 AM [facility] Anion Gap 12 7 - 15 07/17/2018 [facility] 5:21 AM [facility] BUN (Blood 8 6 - 21 07/17/2018 [facility] Urea mg/dL 5:21 AM [facility] - Nitrogen), S [facility] Creatinine, S 0.59 0.59 - 07/17/2018 [facility] 1.04 mg/dL 5:21 AM [facility] eGFR-Non >90 >=60 07/17/2018 [facility] Black/ mL/min/BSA 5:21 AM [facility] - [facility] Comment: ----ADDITIONAL INFORMATION---- Estimated GFR calculated using the 2009 CKD_EPI creatinine equation. eGFR-Black/ >90 >=60 mL/min/BSA 07/17/2018 5:21 [facility] [place] DIVISION HUMAN RESOURCES MANAGER LABORATORIES [facility] Comment: ----ADDITIONAL INFORMATION---- Estimated GFR calculated using the 2009 CKD_EPI creatinine equation. Calcium, Total, S 8.0 (L) 8.8 - 10.2 07/17/2018 5:21 AM [facility] mg/dL [facility] Glucose, S 90 70 - 140 mg/dL 07/17/2018 5:21 AM [facility] Specimen Anatomical Collection Method Collection Time Receive d Time (Source) Location / / Volume Laterality Blood (Blood, 07/17/2018 4:24 AM 07/17/19 19 4:44 Venous) DIVISION HUMAN RESOURCES MANAGER AM [facility] Mariano Ferrer M.D., Ph.D. LAB BLOOD ADD-ON Performing Organization Address City/State/ZIP Code Phon e Number [facility] - [address] [place], [place] [address] [facility] Glucose, POCT (07/17/2018 4:15 AM DIVISION HUMAN RESOURCES MANAGER) athologist Signature Glucose, POCT, 85 70 - 140 07/17/2018 [facility] B mg/dL 4:25 AM DIVISION HUMAN RESOURCES MANAGER SERVICES Specimen Anatomical Collection Method Collection Time Receive d Time (Source) Location / / Volume Laterality Blood 07/17/2018 4:15 AM 9 4:25 DIVISION HUMAN RESOURCES MANAGER AM DIVISION HUMAN RESOURCES MANAGER Unknown Provider LAB POCT ORDERABLES-MANUAL Performing Organization Address City/[facility]/ZIP [facility] Phon e Number [facility] [address] [place] [address] Glucose, POCT (07/17/2018 12:08 AM DIVISION HUMAN RESOURCES MANAGER) Analysis Performed At Patho logist Time Signature Glucose, POCT, 82 70 - 140 07/17/2018 [facility] B mg/dL 12:53 AM DIVISION HUMAN RESOURCES MANAGER SERVICES Site Capillary 07/17/2018 [facility] 12:53 AM DIVISION HUMAN RESOURCES MANAGER SERVICES Specimen Anatomical Collection Method Collection Time Receive d Time (Source) Location / / Volume Laterality Blood 07/17/2018 12:08 07/17/2018 AM DIVISION HUMAN RESOURCES MANAGER 12:53 AM DIVISION HUMAN RESOURCES MANAGER Unknown Provider LAB POCT ORDERABLES-MANUAL Performing Organization Address City/[facility] Code Phon e Number [facility] [address] [place] [address] Glucose, POCT (07/17/2018 12:08 AM DIVISION HUMAN RESOURCES MANAGER) Analysis Performed At Patho logist Time Signature Glucose, Collected DEFAULT 07/17/2018 [facility] POCT, B 12:08 AM DIVISION HUMAN RESOURCES MANAGER LABORATORIES - [facility] Specimen Anatomical Collection Method Collection Time Receive d Time (Source) Location / / Volume Laterality Blood (Blood, 07/17/2018 12:08 07/17/2018 Capillary) AM DIVISION HUMAN RESOURCES MANAGER 12:08 AM DIVISION HUMAN RESOURCES MANAGER Moustapha Knott APRN, C.N.P. LAB POCT ORDERABLES-MANUAL Performing Organization Address City/[facility] Phon e Number [facility] - [address] [place], [place] [address] [facility] Glucose, POCT (07/16/2018 8:10 PM DIVISION HUMAN RESOURCES MANAGER) Analysis Performed At Patho logist Time Signature Glucose, POCT, 89 70 - 140 07/16/2018 [facility] B mg/dL 8:11 PM DIVISION HUMAN RESOURCES MANAGER SERVICES Site Capillary 07/16/2018 [facility] 8:11 PM DIVISION HUMAN RESOURCES MANAGER SERVICES Specimen Anatomical Collection Method Collection Time Receive d Time (Source) Location / / Volume Laterality Blood 07/16/2018 8:10 PM 9 8:11 DIVISION HUMAN RESOURCES MANAGER PM DIVISION HUMAN RESOURCES MANAGER Unknown Provider LAB POCT ORDERABLES-MANUAL Performing Organization Address [facility] Phon e Number POC [facility] [address] [place] [address] Glucose, POCT (07/16/2018 8:10 PM DIVISION HUMAN RESOURCES MANAGER) Analysis Performed At Patho logist Time Signature Glucose, Collected DEFAULT 07/16/2018 [facility] POCT, B 8:10 PM DIVISION HUMAN RESOURCES MANAGER LABORATORIES - [facility] Specimen Anatomical Collection Method Collection Time Receive d Time (Source) Location / / Volume Laterality Blood (Blood, 07/16/2018 8:10 PM 07/16/19 19 8:10 Capillary) DIVISION HUMAN RESOURCES MANAGER PM DIVISION HUMAN RESOURCES MANAGER Mihaela Patterson APRN.N.Chang LAB POCT ORDERABLES-MANUAL Performing Organization Address [facility] Phon e Number [facility] - [address] [place], [place] [address] [facility] Glucose, POCT (07/16/2018 4:12 PM DIVISION HUMAN RESOURCES MANAGER) P athologist Signature Glucose, POCT, 106 70 - 140 07/16/2018 [facility] B mg/dL 4:13 PM DIVISION HUMAN RESOURCES MANAGER SERVICES Site ARTLINE 07/16/2018 [facility] 4:13 PM DIVISION HUMAN RESOURCES MANAGER SERVICES Specimen Anatomical Collection Method Collection Time Receive d Time (Source) Location / / Volume Laterality Blood 07/16/2018 4:12 PM 9 4:13 DIVISION HUMAN RESOURCES MANAGER PM DIVISION HUMAN RESOURCES MANAGER Unknown Provider LAB POCT ORDERABLES-MANUAL Performing Organization Address [facility] Phon e Number POC [facility] [address] [place] [address] Glucose, POCT (07/16/2018 4:12 PM DIVISION HUMAN RESOURCES MANAGER) Analysis Performed At Patho logist Time Signature Glucose, Collected DEFAULT 07/16/2018 [facility] POCT, B 4:12 PM DIVISION HUMAN RESOURCES MANAGER LABORATORIES - [facility] Specimen Anatomical Collection Method Collection Time Receive d Time (Source) Location / / Volume Laterality Blood (Blood, 07/16/2018 4:12 PM 07/16/19 19 4:12 Capillary) DIVISION HUMAN RESOURCES MANAGER PM DIVISION HUMAN RESOURCES MANAGER Mihaela Patterson APRN.N.P. LAB POCT ORDERABLES-MANUAL Performing Organization Address City/[facility] Phon e Number [facility]IES - [address] [place], [place] [address] [facility] Patient Status (07/16/2018 11:49 AM DIVISION HUMAN RESOURCES MANAGER) P athologist Signature FIO2 0.40 0.21=AIR 07/16/2018 [facility] 11:54 AM DIVISION HUMAN RESOURCES MANAGER [facility] Device Vent 07/16/2018 [facility] 11:54 AM DIVISION HUMAN RESOURCES MANAGER [facility] Specimen Anatomical Collection Method Collection Time Receive d Time (Source) Location / / Volume Laterality Blood 07/16/2018 11:49 07/16/2018 AM DIVISION HUMAN RESOURCES MANAGER 11:54 AM DIVISION HUMAN RESOURCES MANAGER Mariano Ferrer M.D., Ph.D. LAB BLOOD NON ADD-ON Performing Organization Address City/State/ZIP Code Phon e Number [facility]IES - [address] [place], [place] [address] [facility] (ABNORMAL) Blood Gas with Coox, Arterial (07/16/2018 11:49 AM DIVISION HUMAN RESOURCES MANAGER) Patholo gist Method Time Signature pO2 158 (H) 83 - 108 07/16/2018 [facility] mm Hg 11:56 AM DIVISION HUMAN RESOURCES MANAGER LABORATORIES [facility] pCO2 41 32 - 45 07/16/2018 [facility] mm Hg 11:56 AM DIVISION HUMAN RESOURCES MANAGER [facility] pH 7.36 7.35 - 07/16/2018 [facility] 7.45 pH 11:56 AM DIVISION HUMAN RESOURCES MANAGER [facility] Base Excess -2 -2 - 3 07/16/2018 [facility] mmol/L 11:56 AM DIVISION HUMAN RESOURCES MANAGER [facility] HCO3 23 22 - 26 07/16/2018 [facility] mmol/L 11:56 AM DIVISION HUMAN RESOURCES MANAGER [facility] Hemoglobin, B 16.1 (H) 11.6 - 07/16/2018 [facility] 15.0 g/dL 11:56 AM DIVISION HUMAN RESOURCES MANAGER [facility] O2Hb 97.3 94.0 - 07/16/2018 [facility] 98.0 % 11:56 AM DIVISION HUMAN RESOURCES MANAGER [facility] COHb 1.4 <3.0 % 07/16/2018 [facility] 11:56 AM DIVISION HUMAN RESOURCES MANAGER LABORATORIES [facility] MetHb <1.0 <1.5 % 07/16/2018 [facility] 11:56 AM DIVISION HUMAN RESOURCES MANAGER [facility] CtO2 22.3 (H) 18.0 - 07/16/2018 [facility] 21.0 vol 11:56 AM DIVISION HUMAN RESOURCES MANAGER LABORATORIES - % [facility] Arterial Art Line 07/16/2018 [facility] Sample Site 11:56 AM DIVISION HUMAN RESOURCES MANAGER LABORATORIES - [facility] Specimen Anatomical Collection Method Collection Time Receive d Time (Source) Location / / Volume Laterality Blood (Blood, 07/16/2018 11:49 07/16/2018 Arterial) AM DIVISION HUMAN RESOURCES MANAGER 11:54 AM DIVISION HUMAN RESOURCES MANAGER Mariano Ferrer M.D., Ph.D. LAB BLOOD NON ADD-ON Performing Organization Address City/[facility] Code Phon e Number [facility] - [address] [place], [place] [address] [facility] (ABNORMAL) CBC without Differential (07/16/2018 11:48 AM DIVISION HUMAN RESOURCES MANAGER) [facility] Method Time Signature Hemoglobin 16.0 (H) 11.6 - 07/16/2018 [facility] 15.0 g/dL 12:46 PM DIVISION HUMAN RESOURCES MANAGER LABORATORIES [facility] Hematocrit 46.0 (H) 35.5 - 07/16/2018 [facility] 44.9 % 12:46 PM DIVISION HUMAN RESOURCES MANAGER LABORATORIES [facility] Erythrocytes 5.37 (H) 3.92 - 07/16/2018 [facility] 5.13 12:46 PM DIVISION HUMAN RESOURCES MANAGER LABORATORIES - x10(12)/L [facility] MCV 85.7 78.2 - 07/16/2018 [facility] 97.9 fL 12:46 PM DIVISION HUMAN RESOURCES MANAGER LABORATORIES [facility] RBC Distrib 16.6 (H) 12.2 - 07/16/2018 [facility] Width 16.1 % 12:46 PM DIVISION HUMAN RESOURCES MANAGER LABORATORIES - [facility] Platelet Count 128 (L) 157 - 371 07/16/2018 [facility] x10(9)/L 12:46 PM DIVISION HUMAN RESOURCES MANAGER LABORATORIES - [facility] Leukocytes 9.6 3.4 - 9.6 07/16/2018 [facility] x10(9)/L 12:46 PM DIVISION HUMAN RESOURCES MANAGER LABORATORIES - [facility] Specimen Anatomical Collection Method Collection Time Receive d Time (Source) Location / / Volume Laterality Blood (Blood, 07/16/2018 11:48 07/16/2018 Arterial) AM DIVISION HUMAN RESOURCES MANAGER 12:24 PM DIVISION HUMAN RESOURCES MANAGER Vonnie Mccarthy M.D. LAB BLOOD ADD-ON Performing Organization Address City/[facility] Phon e Number [facility]IES - [address] [place] [address] [facility] Glucose, POCT (07/16/2018 11:48 AM DIVISION HUMAN RESOURCES MANAGER) Analysis Performed At Patho logist Time Signature Glucose, Collected DEFAULT 07/16/2018 [facility] POCT, B 11:48 AM DIVISION HUMAN RESOURCES MANAGER LABORATORIES - [facility] Specimen Anatomical Collection Method Collection Time Receive d Time (Source) Location / / Volume Laterality Blood (Blood, 07/16/2018 11:48 07/16/2018 Capillary) AM DIVISION HUMAN RESOURCES MANAGER 11:48 AM DIVISION HUMAN RESOURCES MANAGER Moustapha Knott APRN, C.N.P. LAB POCT ORDERABLES-MANUAL Performing Organization Address City/[facility]/ZIP Code Phon e Number [facility] - [address] [place], [place] [address] [facility] Glucose, POCT (07/16/2018 11:47 AM DIVISION HUMAN RESOURCES MANAGER) P athologist Signature Glucose, POCT, 119 70 - 140 07/16/2018 [facility] B mg/dL 11:49 AM DIVISION HUMAN RESOURCES MANAGER SERVICES Site ARTLINE 07/16/2018 [facility] 11:49 AM DIVISION HUMAN RESOURCES MANAGER SERVICES Specimen Anatomical Collection Method Collection Time Receive d Time (Source) Location / / Volume Laterality Blood 07/16/2018 11:47 07/16/2018 AM DIVISION HUMAN RESOURCES MANAGER 11:50 AM DIVISION HUMAN RESOURCES MANAGER Unknown Provider LAB POCT ORDERABLES-MANUAL Performing Organization Address City/[facility] Code Phon e Number POC [facility] [address] [place] [address] Glucose, POCT (07/16/2018 8:12 AM DIVISION HUMAN RESOURCES MANAGER) P athologist Signature Glucose, POCT, 119 70 - 140 07/16/2018 [facility] B mg/dL 8:12 AM DIVISION HUMAN RESOURCES MANAGER SERVICES Site ARTLINE 07/16/2018 [facility] 8:12 AM DIVISION HUMAN RESOURCES MANAGER SERVICES Specimen Anatomical Collection Method Collection Time Receive d Time (Source) Location / / Volume Laterality Blood 07/16/2018 8:12 AM 9 8:13 DIVISION HUMAN RESOURCES MANAGER AM DIVISION HUMAN RESOURCES MANAGER Unknown Provider LAB POCT ORDERABLES-MANUAL Performing Organization Address City/[facility] Code Phon e Number [facility]OC [facility] [address] [place] [address] Glucose, POCT (07/16/2018 8:12 AM DIVISION HUMAN RESOURCES MANAGER) Analysis Performed At Patho logist Time Signature Glucose, Collected DEFAULT 07/16/2018 [facility] POCT, B 8:12 AM DIVISION HUMAN RESOURCES MANAGER LABORATORIES - [facility] Specimen Anatomical Collection Method Collection Time Receive d Time (Source) Location / / Volume Laterality Blood (Blood, 07/16/2018 8:12 AM 07/16/19 8:12 Capillary) DIVISION HUMAN RESOURCES MANAGER AM DIVISION HUMAN RESOURCES MANAGER Moustapha Knott APRN, C.N.P. LAB POCT ORDERABLES-MANUAL Performing Organization Address City/State/ZIP Code Phon e Number [facility] - [address] [place], [place] [address] [facility] CT Lumbar Spine without IV Contrast (07/16/2018 8:04 AM DIVISION HUMAN RESOURCES MANAGER) Anatomical Region Laterality Modality Lumbar Spine, Neuroradiology RST LOS, Neuroradiology N/A Computed Tomography ARZ LOS, Neuroradiology FLA LOS Specimen (Source) Anatomical Collection Method Collection Time Re ceived Time Location / / Volume Laterality 07/16/2018 9:07 AM DIVISION HUMAN RESOURCES MANAGER Impressions 07/16/2018 9:28 AM DIVISION HUMAN RESOURCES MANAGER IMPRESSION: No definitive acute fractures/injury of the thoracic or lumbar spine. Chronic changes as noted. Narrative 07/16/2018 9:28 AM DIVISION HUMAN RESOURCES MANAGER EXAM: CT THORACIC SPINE WITHOUT IV CONTRAST, [...] Spine without IV Contrast (07/16/2018 8:04 AM DIVISION HUMAN RESOURCES MANAGER) Anatomical Region Laterality Modality Thoracic Spine, Neuroradiology RST LOS, Neuroradiology N/A Computed Tomography ARZ LOS, Neuroradiology FLA [facility] Specimen (Source) Anatomical Collection Method Collection Time Re ceived Time Location / / Volume Laterality 07/16/2018 9:07 AM DIVISION HUMAN RESOURCES MANAGER Impressions 07/16/2018 9:28 AM DIVISION HUMAN RESOURCES MANAGER IMPRESSION: No definitive acute fractures/injury of the thoracic or lumbar spine. Chronic changes as noted. Narrative 07/16/2018 9:28 AM DIVISION HUMAN RESOURCES MANAGER EXAM: CT THORACIC SPINE WITHOUT IV CONTRAST, [...] Spine without IV Contrast (07/16/2018 8:04 AM DIVISION HUMAN RESOURCES MANAGER) Anatomical Region Laterality Modality Cervical Spine, Neuroradiology RST LOS, Neuroradiology N/A Computed Tomography ARZ LOS, Neuroradiology FLA [facility] Specimen (Source) Anatomical Collection Method Collection Time Re ceived Time Location / / Volume Laterality 07/16/2018 8:51 AM DIVISION HUMAN RESOURCES MANAGER Impressions 07/16/2018 9:30 AM DIVISION HUMAN RESOURCES MANAGER IMPRESSION: 1. No acute traumatic findings of the ce rvical spine. 2. Scattered moderate-advanced degenerat pat changes of the cervical spine as above. Narrative 07/16/2018 9:30 AM DIVISION HUMAN RESOURCES MANAGER EXAM: CT CERVICAL SPINE WITHOUT IV CONTRAST [...] Head without IV Contrast (07/16/2018 8:04 AM DIVISION HUMAN RESOURCES MANAGER) Anatomical Region Laterality Modality Head, Neuroradiology RST LOS, Neuroradiology ARTwyla JALLOH, N/A Computed Tomography Neuroradiology FLA [facility] Specimen (Source) Anatomical Collection Method Collection Time Re ceived Time Location / / Volume Laterality 07/16/2018 8:21 AM DIVISION HUMAN RESOURCES MANAGER Impressions 07/16/2018 9:02 AM DIVISION HUMAN RESOURCES MANAGER IMPRESSION: No acute intracranial findings. Narrative 07/16/2018 9:02 AM DIVISION HUMAN RESOURCES MANAGER EXAM: CT HEAD WITHOUT IV CONTRAST COMPARISON: [...] IMPRESSION: No acute intracranial findin gs. Galo Langford M.D. G CT PROCEDURES DX Shoulder Left 2+ Views (07/16/2018 6:53 AM DIVISION HUMAN RESOURCES MANAGER) Anatomical Region Laterality Modality Upper Extremity, Shoulder, Musculoskeletal RST LOS, Left Digital Radiography Musculoskeletal ARZ LOS, Muskuloskeletal FLA LOS Specimen (Source) Anatomical Collection Method Collection Time Re ceived Time Location / / Volume Laterality 07/16/2018 7:33 AM DIVISION HUMAN RESOURCES MANAGER Impressions 07/16/2018 7:33 AM DIVISION HUMAN RESOURCES MANAGER IMPRESSION: ??Multiple mildly displaced left rib fractures. The left shoulder is negative for fracture. ET tube. NG tube. Narrative 07/16/2018 7:33 AM DIVISION HUMAN RESOURCES MANAGER EXAM: ??DX SHOULDER LEFT 2+ VIEWS Procedure Note Luan Suarez M.D. - 07/16/2018F ormatting of this note might be different from the original. EXAM: DX SHOULDER LEFT 2+ VIEWS IMPRESSION: Multiple mildly displaced le ft rib fractures. The left shoulder is negative for fracture. ET tube. NG tube. Galo [facility] Patient Status (07/16/2018 6:04 AM DIVISION HUMAN RESOURCES MANAGER) P athologist Signature FIO2 0.40 0.21=AIR 07/16/2018 [facility] 6:10 AM [facility] Device Vent 07/16/2018 [facility] 6:10 AM [facility] Specimen Anatomical Collection Method Collection Time Receive d Time (Source) Location / / Volume Laterality Blood 07/16/2018 6:04 AM 9 6:10 DIVISION HUMAN RESOURCES MANAGER AM DIVISION HUMAN RESOURCES MANAGER Galo Langford M.D. LAB BLOOD NON ADD-ON Performing Organization Address City/State/ZIP Code Phon e Number [facility] - [address] [place], [place] [address] [facility] (ABNORMAL) Blood Gas with Coox, Arterial (07/16/2018 6:04 AM DIVISION HUMAN RESOURCES MANAGER) [facility] Method Time Signature pO2 157 (H) 83 - 108 07/16/2018 [facility] mm Hg 6:13 AM [facility] pCO2 38 32 - 45 07/16/2018 [facility] mm Hg 6:13 AM [facility] pH 7.37 7.35 - 07/16/2018 [facility] 7.45 pH 6:13 AM [facility] Base Excess -3 (L) -2 - 3 07/16/2018 [facility] mmol/L 6:13 AM [facility] HCO3 21 (L) 22 - 26 07/16/2018 [facility] mmol/L 6:13 AM [facility] Hemoglobin, B 15.5 (H) 11.6 - 07/16/2018 [facility] 15.0 g/dL 6:13 AM [facility] O2Hb 97.1 94.0 - 07/16/2018 [facility] 98.0 % 6:13 AM DIVISION HUMAN RESOURCES MANAGER [facility] COHb 1.7 <3.0 % 07/16/2018 [facility] 6:13 AM DIVISION HUMAN RESOURCES MANAGER [facility] MetHb <1.0 <1.5 % 07/16/2018 [facility] 6:13 AM [facility] CtO2 21.4 (H) 18.0 - 07/16/2018 [facility] 21.0 vol 6:13 AM [facility] Arterial Art Line 07/16/2018 [facility] Sample Site 6:13 AM [facility] Comment: Ruslan's test not done. Specimen Anatomical Collection Method Collection Time Receive d Time (Source) Location / / Volume Laterality Blood (Blood, 07/16/2018 6:04 AM 07/16/19 19 6:10 Arterial) DIVISION HUMAN RESOURCES MANAGER AM DIVISION HUMAN RESOURCES MANAGER Galo Langford M.D. LAB BLOOD NON ADD-ON Performing Organization Address City/[facility]/ZIP Code Phon e Number [facility] - [address] [place] [address] [facility] Calcium, Ionized (07/16/2018 6:03 AM DIVISION HUMAN RESOURCES MANAGER) P athologist Signature Calcium, 4.77 4.57 - 07/16/2018 [facility] Ionized, S 5.43 mg/dL 6:49 AM DIVISION HUMAN RESOURCES MANAGER LABORATORIES [facility] Comment: ----ADDITIONAL INFORMATION---- This test has been modified from the man emilier's instructions. Its performance characteri stics were determined by [facility] in a manner co nsistent with CLIA requirements. This test has not bee n cleared or approved by the U.S. Food and Drug Admin istration. pH for Ionized 7.44 7.35 - 7.48 07/16/2018 6:49 AM DIVISION HUMAN RESOURCES MANAGER [facility] Calcium LABORATORIES - [facility] Specimen Anatomical Collection Method Collection Time Receive d Time (Source) Location / / Volume Laterality Blood (Blood, 07/16/2018 6:03 AM 07/16/19 19 6:27 Arterial) DIVISION HUMAN RESOURCES MANAGER AM DIVISION HUMAN RESOURCES MANAGER Galo Langford M.D. LAB BLOOD NON ADD-ON Performing Organization Address City/[facility]/ZIP Code Phon e Number [facility] - [address] [place] [address] [facility] Phosphorus Inorganic (07/16/2018 6:03 AM DIVISION HUMAN RESOURCES MANAGER) Analysis Performed At Patho logist Time Signature Phosphorus 3.1 2.5 - 4.5 07/16/2018 [facility] (Inorganic), S mg/dL 6:59 AM DIVISION HUMAN RESOURCES MANAGER LABORATORIES [facility] Specimen Anatomical Collection Method Collection Time Receive d Time (Source) Location / / Volume Laterality Blood (Blood, 07/16/2018 6:03 AM 07/16/19 19 6:27 Arterial) DIVISION HUMAN RESOURCES MANAGER AM DIVISION HUMAN RESOURCES MANAGER Galo Langford M.D. LAB BLOOD ADD-ON Performing Organization Address City/[facility]/ZIP Code Phon e Number [facility] - [address] (ABNORMAL) Magnesium (07/16/2018 6:03 AM DIVISION HUMAN RESOURCES MANAGER) Analysis Performed At Patho logist Time Signature Magnesium, S 1.4 (L) 1.7 - 2.3 07/16/2018 [facility] mg/dL 6:59 AM DIVISION HUMAN RESOURCES MANAGER LABORATORIES [facility] Specimen Anatomical Collection Method Collection Time Receive d Time (Source) Location / / Volume Laterality Blood (Blood, 07/16/2018 6:03 AM 07/16/19 19 6:27 Arterial) DIVISION HUMAN RESOURCES MANAGER AM DIVISION HUMAN RESOURCES MANAGER Galo Langford M.D. LAB BLOOD ADD-ON Performing Organization Address City/State/ZIP Code Phon e Number [facility] - [address] [place], [place] [address] [facility] (ABNORMAL) BMP (Basic Metabolic Panel) (07/16/2018 6:03 AM DIVISION HUMAN RESOURCES MANAGER) Patholo gist Method Time Signature Potassium, S 3.9 3.6 - 5.2 07/16/2018 [facility] mmol/L 6:59 AM DIVISION HUMAN RESOURCES MANAGER LABORATORIES [facility] Sodium, S 141 135 - 145 07/16/2018 [facility] mmol/L 6:59 AM DIVISION HUMAN RESOURCES MANAGER LABORATORIES [facility] Chloride, S 109 (H) 98 - 107 07/16/2018 [facility] mmol/L 6:59 AM DIVISION HUMAN RESOURCES MANAGER LABORATORIES - [facility] Bicarbonate, S 21 (L) 22 - 29 07/16/2018 [facility] mmol/L 6:59 AM DIVISION HUMAN RESOURCES MANAGER LABORATORIES [facility] Anion Gap 11 7 - 15 07/16/2018 [facility] 6:59 AM DIVISION HUMAN RESOURCES MANAGER LABORATORIES - [facility] BUN (Blood 13 6 - 21 07/16/2018 [facility] Urea mg/dL 6:59 AM DIVISION HUMAN RESOURCES MANAGER LABORATORIES - Nitrogen), S [facility] Creatinine, S 0.70 0.59 - 07/16/2018 [facility] 1.04 mg/dL 6:59 AM DIVISION HUMAN RESOURCES MANAGER LABORATORIES [facility] eGFR-Non 89 >=60 07/16/2018 [facility] Black/ mL/min/BSA 6:59 AM DIVISION HUMAN RESOURCES MANAGER LABORATORIES [facility] Comment: ----ADDITIONAL INFORMATION---- Estimated GFR calculated using the 2009 CKD_EPI creatinine equation. eGFR-Black/ >90 >=60 mL/min/BSA 07/16/2018 6:59 [facility] Argentine AM DIVISION HUMAN RESOURCES MANAGER LABORATORIES [facility] Comment: ----ADDITIONAL INFORMATION---- Estimated GFR calculated using the 2009 CKD_EPI creatinine equation. Calcium, Total, S 8.1 (L) 8.8 - 10.2 07/16/2018 6:59 AM [facility] mg/dL [facility] Glucose, S 144 (H) 70 - 140 mg/dL 07/16/2018 6:59 AM [facility] Specimen Anatomical Collection Method Collection Time Receive d Time (Source) Location / / Volume Laterality Blood (Blood, 07/16/2018 6:03 AM 07/16/19 19 6:27 Arterial) DIVISION HUMAN RESOURCES MANAGER AM DIVISION HUMAN RESOURCES MANAGER Galo Langford M.D. LAB BLOOD ADD-ON Performing Organization Address City/State/ZIP Code Phon e Number [facility]IES - [address] (ABNORMAL) CBC without Differential (07/16/2018 6:03 AM DIVISION HUMAN RESOURCES MANAGER) [facility] gist Method Time Signature Hemoglobin 15.3 (H) 11.6 - 07/16/2018 [facility] 15.0 g/dL 6:34 AM [facility] Hematocrit 44.1 35.5 - 07/16/2018 [facility] 44.9 % 6:34 AM [facility] Erythrocytes 5.17 (H) 3.92 - 07/16/2018 [facility] 5.13 6:34 AM [facility] - x10(12)/L [facility] MCV 85.3 78.2 - 07/16/2018 [facility] 97.9 fL 6:34 AM [facility] RBC Distrib 15.9 12.2 - 07/16/2018 [facility] Width 16.1 % 6:34 AM [facility] Platelet Count 121 (L) 157 - 371 07/16/2018 [facility] x10(9)/L 6:34 AM [facility] Leukocytes 8.3 3.4 - 9.6 07/16/2018 [facility] x10(9)/L 6:34 AM [facility] Specimen Anatomical Collection Method Collection Time Receive d Time (Source) Location / / Volume Laterality Blood (Blood, 07/16/2018 6:03 AM 07/16/19 19 6:27 Arterial) DIVISION HUMAN RESOURCES MANAGER AM DIVISION HUMAN RESOURCES MANAGER Galo Langford M.D. LAB BLOOD ADD-ON Performing Organization Address City/State/ZIP Code Phon e Number [facility] - [address] [place], [place] [address] [facility] DX Chest Portable 1 View (07/16/2018 5:22 AM DIVISION HUMAN RESOURCES MANAGER) Anatomical Region Laterality Modality Chest, Thoracic RST LOS, Thoracic ARZ LOS, Thoracic N/A Digital Radiography FLA LOS Specimen (Source) Anatomical Collection Method Collection Time Re ceived Time Location / / Volume Laterality 07/16/2018 5:24 AM DIVISION HUMAN RESOURCES MANAGER Impressions 07/16/2018 5:26 AM DIVISION HUMAN RESOURCES MANAGER IMPRESSION: ??No significant change since yesterday. ET tube in good position. NG tube with the tip below the diaphragm. L eft upper quadrant surgical drain. Left basilar atelectasis. Tiny left pleural e ffusion. Narrative 07/16/2018 5:26 AM DIVISION HUMAN RESOURCES MANAGER EXAM: ??DX CHEST PORTABLE 1 VIEW Procedure [...] DURES (ABNORMAL) Glucose, POCT (07/16/2018 4:26 AM DIVISION HUMAN RESOURCES MANAGER) P athologist Signature Glucose, POCT, 153 (H) 70 - 140 07/16/2018 [facility] B mg/dL 4:27 AM DIVISION HUMAN RESOURCES MANAGER SERVICES Site ARTLINE 07/16/2018 [facility] 4:27 AM DIVISION HUMAN RESOURCES MANAGER SERVICES Specimen Anatomical Collection Method Collection Time Receive d Time (Source) Location / / Volume Laterality Blood 07/16/2018 4:26 AM 9 4:27 DIVISION HUMAN RESOURCES MANAGER AM DIVISION HUMAN RESOURCES MANAGER Unknown Provider LAB POCT ORDERABLES-MANUAL Performing Organization Address City/[facility]/ZIP Code Phon e Number POC [facility] [address] [place] [address] Glucose, POCT (07/16/2018 4:26 AM DIVISION HUMAN RESOURCES MANAGER) Analysis Performed At Patho logist Time Signature Glucose, Collected DEFAULT 07/16/2018 [facility] POCT, B 4:26 AM DIVISION HUMAN RESOURCES MANAGER LABORATORIES - [facility] Specimen Anatomical Collection Method Collection Time Receive d Time (Source) Location / / Volume Laterality Blood (Blood, 07/16/2018 4:26 AM 07/16/19 19 4:26 Capillary) DIVISION HUMAN RESOURCES MANAGER AM DIVISION HUMAN RESOURCES MANAGER Galo Langford M.D. LAB POCT ORDERABLES-MANUAL Performing Organization Address City/[facility]/ZIP Code Phon e Number [facility] LABORATORIES - [address] [place], [place] [address] [facility] (ABNORMAL) Glucose, POCT (07/16/2018 12:57 AM DIVISION HUMAN RESOURCES MANAGER) P athologist Signature Glucose, POCT, 159 (H) 70 - 140 07/16/2018 [facility] B mg/dL 12:58 AM DIVISION HUMAN RESOURCES MANAGER SERVICES Site ARTLINE 07/16/2018 [facility] 12:58 AM DIVISION HUMAN RESOURCES MANAGER SERVICES Specimen Anatomical Collection Method Collection Time Receive d Time (Source) Location / / Volume Laterality Blood 07/16/2018 12:57 07/16/2018 AM DIVISION HUMAN RESOURCES MANAGER 12:58 AM DIVISION HUMAN RESOURCES MANAGER Unknown Provider LAB POCT ORDERABLES-MANUAL Performing Organization Address City/State/ZIP Code Phon e Number POC [facility] [address] [place] [address] Glucose, POCT (07/16/2018 12:57 AM DIVISION HUMAN RESOURCES MANAGER) Analysis Performed At Patho logist Time Signature Glucose, Collected DEFAULT 07/16/2018 [facility] POCT, B 12:57 AM DIVISION HUMAN RESOURCES MANAGER LABORATORIES - [facility] Specimen Anatomical Collection Method Collection Time Receive d Time (Source) Location / / Volume Laterality Blood (Blood, 07/16/2018 12:57 07/16/2018 Capillary) AM DIVISION HUMAN RESOURCES MANAGER 12:57 AM DIVISION HUMAN RESOURCES MANAGER Tomás Mohamud M.D. LAB POCT ORDERABLES-MANUAL Performing Organization Address City/[facility]/ZIP Code Phon e Number [facility]ATORIES - [address] [place], [place] [address] [facility] DX Abdomen Portable Anterior Posterior 1 View (07/16/2018 12:26 AM DIVISION HUMAN RESOURCES MANAGER) Anatomical Region Laterality Modality Abdomen, Abdominal RST LOS, Abdominal ARZ LOS, N/A Digital Radiography Abdominal FLA LOS Specimen (Source) Anatomical Collection Method Collection Time Re ceived Time Location / / Volume Laterality 07/16/2018 12:30 AM DIVISION HUMAN RESOURCES MANAGER Impressions 07/16/2018 8:34 AM DIVISION HUMAN RESOURCES MANAGER IMPRESSION: ??Since 07/15/2018, interval advancement of the [...] with this interpretation. Narrative 07/16/2018 8:34 AM DIVISION HUMAN RESOURCES MANAGER EXAM: ??DX ABDOMEN PORTABLE ANTERIOR POSTERIOR 1 [...] with this interpretation. Eufemia Mcmanus M.D., M.S. [facility] [place] [facility]AGNOSTIC IMAGING PROC EDURES (ABNORMAL) CBC without Differential (07/16/2018 12:13 AM DIVISION HUMAN RESOURCES MANAGER) [facility] Method Time Signature Hemoglobin 15.2 (H) 11.6 - 07/16/2018 [facility] 15.0 g/dL 12:22 AM DIVISION HUMAN RESOURCES MANAGER LABORATORIES [facility] Hematocrit 44.4 35.5 - 07/16/2018 [facility] 44.9 % 12:22 AM DIVISION HUMAN RESOURCES MANAGER LABORATORIES [facility] Erythrocytes 5.24 (H) 3.92 - 07/16/2018 [facility] 5.13 12:22 AM DIVISION HUMAN RESOURCES MANAGER LABORATORIES - x10(12)/L [facility] MCV 84.7 78.2 - 07/16/2018 [facility] 97.9 fL 12:22 AM DIVISION HUMAN RESOURCES MANAGER [facility] RBC Distrib 15.0 12.2 - 07/16/2018 [facility] Width 16.1 % 12:22 AM [facility] Platelet Count 118 (L) 157 - 371 07/16/2018 [facility] x10(9)/L 12:22 AM DIVISION HUMAN RESOURCES MANAGER LABORATORIES - [facility] Leukocytes 10.2 (H) 3.4 - 9.6 07/16/2018 [facility] x10(9)/L 12:22 AM DIVISION HUMAN RESOURCES MANAGER LABORATORIES - [facility] Specimen Anatomical Collection Method Collection Time Receive d Time (Source) Location / / Volume Laterality Blood (Blood, 07/16/2018 12:13 07/16/2018 Arterial) AM DIVISION HUMAN RESOURCES MANAGER 12:19 AM DIVISION HUMAN RESOURCES MANAGER Galo Langford M.D. LAB BLOOD ADD-ON Performing Organization Address City/State/ZIP Code Phon e Number [facility]IES - [address] [place], [place] [address] [facility] (ABNORMAL) Blood Gas and Electrolytes CG8+, Point of Care, [place] In[facility], Vascular Access [employer] (07/15/2018 11:00 PM DIVISION HUMAN RESOURCES MANAGER) P athologist Signature Sample Site, Artline 07/15/2018 [facility] POCT 11:07 PM DIVISION HUMAN RESOURCES MANAGER SERVICES Comment: ----ADDITIONAL INFORMATION---- Performed at the Point of Care pH, POCT 7.39 7.35 - 7.45 07/15/2018 11:07 PM DIVISION HUMAN RESOURCES MANAGER POC [facility] Comment: ----ADDITIONAL INFORMATION---- Performed at the Point of Care pCO2, POCT 37 32 - 45 mm Hg 07/15/2018 11:07 PM DIVISION HUMAN RESOURCES MANAGER P OC [facility] Comment: ----ADDITIONAL INFORMATION---- Performed at the Point of Care pO2, POCT 174 (H) 83 - 108 mm Hg 07/15/2018 11:07 PM DIVISION HUMAN RESOURCES MANAGER P OC [facility] Comment: ----ADDITIONAL INFORMATION---- Performed at the Point of Care Base, POCT -2 -2 - 3 mmol/L 07/15/2018 11:07 PM DIVISION HUMAN RESOURCES MANAGER P OC [facility] Comment: ----ADDITIONAL INFORMATION---- Performed at the Point of Care HCO3, POCT 23 22 - 26 mmol/L 07/15/2018 11:07 PM DIVISION HUMAN RESOURCES MANAGER POC [facility] Comment: ----ADDITIONAL INFORMATION---- Performed at the Point of Care Sodium, POCT, B 142 135 - 145 mmol/L 07/15/2018 11: 07 PM DIVISION HUMAN RESOURCES MANAGER POC [facility] Comment: ----ADDITIONAL INFORMATION---- Performed at the Point of Care Potassium, POCT, B 3.6 3.6 - 5.2 mmol/L 07/15/2018 11: 07 PM POC [facility] DIVISION HUMAN RESOURCES MANAGER SERVICES Comment: ----ADDITIONAL INFORMATION---- Performed at the Point of Care Calcium, Ionized, 4.70 4.65 - 5.30 07/15/2018 11:07 PM POC [facility] POCT, B mg/dL DIVISION HUMAN RESOURCES MANAGER SERVICES Comment: ----ADDITIONAL INFORMATION---- Performed at the Point of Care pH POCT 7.39 7.35 - 7.45 07/15/2018 11:07 PM DIVISION HUMAN RESOURCES MANAGER POC [facility] Comment: ----ADDITIONAL INFORMATION---- Performed at the Point of Care Glucose, POCT, B 168 (H) 70 - 140 mg/dL 07/15/2018 11:07 P M POC [facility] DIVISION HUMAN RESOURCES MANAGER SERVICES Comment: ----ADDITIONAL INFORMATION---- Performed at the Point of Care Hematocrit, POCT, B 43.0 35.5 - 44.9 % 07/15/2018 11 :07 PM POC [facility] SERVICES DIVISION HUMAN RESOURCES MANAGER Comment: ----ADDITIONAL INFORMATION---- Performed at the Point of Care Specimen Anatomical Collection Method Collection Time Receive d Time (Source) Location / / Volume Laterality Blood 07/15/2018 11:00 07/15/2018 PM DIVISION HUMAN RESOURCES MANAGER 11:08 PM DIVISION HUMAN RESOURCES MANAGER Unknown Provider LAB POCT ORDERABLES - DEVICE Performing Organization Address [facility]/ZIP [facility] Phon e Number POC [facility] [address] [place] [address] Patient Status (07/15/2018 10:59 PM DIVISION HUMAN RESOURCES MANAGER) P athologist Signature FIO2 0.40 0.21=AIR 07/15/2018 [facility] 11:02 PM DIVISION HUMAN RESOURCES MANAGER LABORATORIES - [facility] Device VENT 07/15/2018 [facility] 11:02 PM DIVISION HUMAN RESOURCES MANAGER LABORATORIES - [facility] Specimen Anatomical Collection Method Collection Time Receive d Time (Source) Location / / Volume Laterality Blood 07/15/2018 10:59 07/15/2018 PM DIVISION HUMAN RESOURCES MANAGER 11:02 PM DIVISION HUMAN RESOURCES MANAGER Galo Langford M.D. LAB BLOOD NON ADD-ON Performing Organization Address City/[facility] Phon e Number [facility]ATORIES - [address] [place], [place] [address] [facility] Blood Gas, Arterial, POCT (07/15/2018 10:59 PM DIVISION HUMAN RESOURCES MANAGER) Analysis Performed At Patho logist Time Signature ABG and Collected DEFAULT 07/15/2018 [facility] Lytes, POCT, 10:59 PM DIVISION HUMAN RESOURCES MANAGER LABORATORIES - B [facility] Specimen Anatomical Collection Method Collection Time Receive d Time (Source) Location / / Volume Laterality Blood (Other, 07/15/2018 10:59 07/15/2018 Specify in PM DIVISION HUMAN RESOURCES MANAGER 10:59 PM DIVISION HUMAN RESOURCES MANAGER Comments) Galo Langford M.D. LAB POCT ORDERABLES - DEVICE Performing Organization Address City/[facility] Code Phon e Number [facility]ATORIES - [address] [place] [address] [facility] (ABNORMAL) Blood Gas without Coox, Arterial (07/15/2018 10:59 PM DIVISION HUMAN RESOURCES MANAGER) [facility] Method Time Signature pO2 177 (H) 83 - 108 07/15/2018 [facility] mm Hg 11:08 PM DIVISION HUMAN RESOURCES MANAGER LABORATORIES - [facility] pCO2 34 32 - 45 07/15/2018 [facility] mm Hg 11:08 PM DIVISION HUMAN RESOURCES MANAGER LABORATORIES - [facility] pH 7.40 7.35 - 07/15/2018 [facility] 7.45 pH 11:08 PM DIVISION HUMAN RESOURCES MANAGER LABORATORIES - [facility] Base Excess -3 (L) -2 - 3 07/15/2018 [facility] mmol/L 11:08 PM DIVISION HUMAN RESOURCES MANAGER LABORATORIES - [facility] HCO3 21 (L) 22 - 26 07/15/2018 [facility] mmol/L 11:08 PM DIVISION HUMAN RESOURCES MANAGER LABORATORIES - [facility] Arterial Art Line 07/15/2018 [facility] Sample Site 11:08 PM DIVISION HUMAN RESOURCES MANAGER LABORATORIES - [facility] Specimen Anatomical Collection Method Collection Time Receive d Time (Source) Location / / Volume Laterality Blood (Blood, 07/15/2018 10:59 07/15/2018 Arterial) PM DIVISION HUMAN RESOURCES MANAGER 11:02 PM DIVISION HUMAN RESOURCES MANAGER Galo Langford M.D. LAB BLOOD NON ADD-ON Performing Organization Address City/[facility]/ZIP Code Phon e Number [facility]IES - [address] [place] [address] [facility] (ABNORMAL) BMP (Basic Metabolic Panel) (07/15/2018 10:58 PM DIVISION HUMAN RESOURCES MANAGER) [employer] Method Time Signature Potassium, P 3.7 3.6 - 5.2 07/15/2018 [facility] mmol/L 11:20 PM [facility] Sodium, P 141 135 - 145 07/15/2018 [facility] mmol/L 11:20 PM [facility] Chloride, P 108 (H) 98 - 107 07/15/2018 [facility] mmol/L 11:20 PM [facility] Bicarbonate, P 21 (L) 22 - 29 07/15/2018 [facility] mmol/L 11:20 PM [facility] Anion Gap, P 12 7 - 15 07/15/2018 [facility] 11:20 PM [facility] BUN (Blood 13 6 - 21 07/15/2018 [facility] Urea mg/dL 11:20 PM [facility] - Nitrogen), P [facility] Creatinine, P 0.62 0.59 - 07/15/2018 [facility] 1.04 mg/dL 11:20 PM [facility] eGFR-Black/Afr >90 >=60 07/15/2018 [facility] ican Argentine mL/min/BSA 11:20 PM [facility] Comment: ----ADDITIONAL INFORMATION---- Estimated GFR calculated using the 2009 CKD_EPI creatinine equation. eGFR Non-Black/ >90 >=60 mL/min/BSA 07/15/2018 11:20 [facility] Argentine [facility] Comment: ----ADDITIONAL INFORMATION---- Estimated GFR calculated using the 2009 CKD_EPI creatinine equation. Calcium, Total, P 8.4 (L) 8.8 - 10.2 07/15/2018 11:20 PM [facility] mg/dL [facility] Glucose, P 182 (H) 70 - 140 mg/dL 07/15/2018 11:20 PM [facility] Specimen Anatomical Collection Method Collection Time Receive d Time (Source) Location / / Volume Laterality Blood (Blood, 07/15/2018 10:58 07/15/2018 Arterial) PM DIVISION HUMAN RESOURCES MANAGER 11:02 PM DIVISION HUMAN RESOURCES MANAGER Galo Langford M.D. LAB BLOOD ADD-ON Performing Organization Address City/State/ZIP Code Phon e Number [facility] - [address] [place], [place] [address] [facility] (ABNORMAL) CBC without Differential (07/15/2018 10:58 PM DIVISION HUMAN RESOURCES MANAGER) Patholo gist Method Time Signature Hemoglobin 15.4 (H) 11.6 - 07/15/2018 [facility] 15.0 g/dL 11:05 PM DIVISION HUMAN RESOURCES MANAGER [facility] Hematocrit 45.4 (H) 35.5 - 07/15/2018 [facility] 44.9 % 11:05 PM DIVISION HUMAN RESOURCES MANAGER [facility] Erythrocytes 5.24 (H) 3.92 - 07/15/2018 [facility] 5.13 11:05 PM DIVISION HUMAN RESOURCES MANAGER LABORATORIES - x10(12)/L [facility] MCV 86.6 78.2 - 07/15/2018 [facility] 97.9 fL 11:05 PM DIVISION HUMAN RESOURCES MANAGER [facility] RBC Distrib 14.9 12.2 - 07/15/2018 [facility] Width 16.1 % 11:05 PM DIVISION HUMAN RESOURCES MANAGER [facility] Platelet Count 125 (L) 157 - 371 07/15/2018 [facility] x10(9)/L 11:05 PM DIVISION HUMAN RESOURCES MANAGER [facility] Leukocytes 8.9 3.4 - 9.6 07/15/2018 [facility] x10(9)/L 11:05 PM DIVISION HUMAN RESOURCES MANAGER [facility] Specimen Anatomical Collection Method Collection Time Receive d Time (Source) Location / / Volume Laterality Blood (Blood, 07/15/2018 10:58 07/15/2018 Arterial) PM DIVISION HUMAN RESOURCES MANAGER 11:02 PM DIVISION HUMAN RESOURCES MANAGER Galo Langford M.D. LAB BLOOD ADD-ON Performing Organization Address City/State/ZIP Code Phon e Number [facility]IES - [address] [place] [place] [address] [facility] Thromboelastograph, Kaolin (07/15/2018 10:56 PM DIVISION HUMAN RESOURCES MANAGER) [facility] gist Method Time Signature R Time 4.4 4.0 - 9.0 07/16/2018 [facility] min 12:08 AM DIVISION HUMAN RESOURCES MANAGER [facility] K Time 1.5 0.9 - 1.7 07/16/2018 [facility] min 12:08 AM DIVISION HUMAN RESOURCES MANAGER [facility] R + K 5.9 4.9 - 10.8 07/16/2018 [facility] min 12:08 AM DIVISION HUMAN RESOURCES MANAGER LABORATORIES [facility] Angle 67.6 66.2 - 80.3 07/16/2018 [facility] degrees 12:08 AM DIVISION HUMAN RESOURCES MANAGER [facility] Maximum 60.0 55.2 - 77.0 07/16/2018 [facility] Amplitude mm 12:08 AM DIVISION HUMAN RESOURCES MANAGER LABORATORIES - [facility] Ly30 0.2 0.0 - 4.8 % 07/16/2018 [facility] 12:08 AM DIVISION HUMAN RESOURCES MANAGER LABORATORIES - [facility] Specimen Anatomical Collection Method Collection Time Receive d Time (Source) Location / / Volume Laterality Blood (Blood, 07/15/2018 10:56 07/15/2018 Arterial) PM DIVISION HUMAN RESOURCES MANAGER 11:01 PM DIVISION HUMAN RESOURCES MANAGER Galo Langford M.D. LAB BLOOD NON ADD-ON Performing Organization Address City/State/ZIP Code Phon e Number [facility]IES - [address] [place], [place] [address] [facility] DX Abdomen 1 View (07/15/2018 9:58 PM DIVISION HUMAN RESOURCES MANAGER) Anatomical Region Laterality Modality Abdomen, Abdominal RST LOS, Abdominal ARZ LOS, N/A Digital Radiography Abdominal FLA LOS Specimen (Source) Anatomical Collection Method Collection Time Re ceived Time Location / / Volume Laterality 07/15/2018 10:12 PM DIVISION HUMAN RESOURCES MANAGER Impressions 07/16/2018 7:48 AM DIVISION HUMAN RESOURCES MANAGER IMPRESSION: ??No comparison. Enteric tube with tip [...] with this interpretation. Narrative 07/16/2018 7:48 AM DIVISION HUMAN RESOURCES MANAGER EXAM: ??DX ABDOMEN 1 VIEW Procedure Note [...] an d agree with this interpretation. [place] DX Chest Portable 1 View (07/15/2018 9:57 PM DIVISION HUMAN RESOURCES MANAGER) Anatomical Region Laterality Modality Chest, Thoracic RST LOS, Thoracic ARZ LOS, Thoracic N/A Digital Radiography FLA LOS Specimen (Source) Anatomical Collection Method Collection Time Re ceived Time Location / / Volume Laterality 07/15/2018 10:31 PM DIVISION HUMAN RESOURCES MANAGER Impressions 07/16/2018 7:48 AM DIVISION HUMAN RESOURCES MANAGER IMPRESSION: ??Since earlier today at 15:49, interval intubation with ET tube above the elise. Enteric tube with tip just beyond the GE junction. This should be advanced by approximately 15 cm for o ptimal position with side-port in the stomach. Left upper quadrant surgical dr saucedo. Pulmonary vascular congestion with perihilar streaky opacities. Narrative 07/16/2018 7:48 AM DIVISION HUMAN RESOURCES MANAGER EXAM: ??DX CHEST PORTABLE 1 VIEW Procedure [...] with perihilar streaky opacities. [place]des Brown M.D. IMG DIAGNOSTIC IM[facility] Patient Status (07/15/2018 8:52 PM DIVISION HUMAN RESOURCES MANAGER) P athologist Signature Temperature 35.9 37.0 deg C 07/15/2018 [facility] 8:52 PM DIVISION HUMAN RESOURCES MANAGER LABORATORIES - [facility] FIO2 0.50 0.21=AIR 07/15/2018 [facility] 8:52 PM DIVISION HUMAN RESOURCES MANAGER LABORATORIES - [facility] Specimen Anatomical Collection Method Collection Time Receive d Time (Source) Location / / Volume Laterality Blood 07/15/2018 8:52 PM 9 8:52 DIVISION HUMAN RESOURCES MANAGER PM DIVISION HUMAN RESOURCES MANAGER Romario Rodriguez OUTFITTER CABIN, THERMAL CUTTING 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 OPERATOR LAB BLOOD NON ADD-ON Performing Organization Address City/State/ZIP Code Phon e Number [facility]IES - [address] [place], [place] [address] [facility] (ABNORMAL) Glucose, Whole Blood (07/15/2018 8:52 PM DIVISION HUMAN RESOURCES MANAGER) athologist Signature Glucose 189 (H) 70 - 140 07/15/2018 [facility] mg/dL 8:54 PM DIVISION HUMAN RESOURCES MANAGER [facility] Specimen Anatomical Collection Method Collection Time Receive d Time (Source) Location / / Volume Laterality Blood (Blood, 07/15/2018 8:52 PM 07/15/19 8:52 Arterial Line) DIVISION HUMAN RESOURCES MANAGER PM DIVISION HUMAN RESOURCES MANAGER Resulting Agency Comment Drawn in OR Shara Santiago M.D. LAB BLOOD TROPONIN Performing Organization Address City/[facility]/ZIP Code Phon e Number [facility]IES - [address] [address] [facility] Potassium, Blood (07/15/2018 8:52 PM DIVISION HUMAN RESOURCES MANAGER) athologist Signature Potassium, B 3.8 3.6 - 5.2 07/15/2018 [facility] mmol/L 8:54 PM DIVISION HUMAN RESOURCES MANAGER [facility] Specimen Anatomical Collection Method Collection Time Receive d Time (Source) Location / / Volume Laterality Blood (Blood, 07/15/2018 8:52 PM 07/15/19 8:52 Arterial Line) DIVISION HUMAN RESOURCES MANAGER PM DIVISION HUMAN RESOURCES MANAGER Resulting Agency Comment Drawn in OR Shara Santiago M.D. LAB BLOOD NON ADD-ON Performing Organization Address City/[facility]/ZIP Code Phon e Number [facility] - [address] [address] [facility] Sodium, B (07/15/2018 8:52 PM DIVISION HUMAN RESOURCES MANAGER) athologist Signature Sodium, B 140 135 - 145 07/15/2018 [facility] mmol/L 8:54 PM DIVISION HUMAN RESOURCES MANAGER [facility] Specimen Anatomical Collection Method Collection Time Receive d Time (Source) Location / / Volume Laterality Blood (Blood, 07/15/2018 8:52 PM 07/15/19 8:52 Arterial Line) DIVISION HUMAN RESOURCES MANAGER PM DIVISION HUMAN RESOURCES MANAGER Resulting Agency Comment Drawn in OR Shara Santiago M.D. LAB BLOOD NON ADD-ON Performing Organization Address City/[facility]/ZIP Code Phon e Number [facility] - [address] [address] [facility] (ABNORMAL) Calcium, Ionized (07/15/2018 8:52 PM DIVISION HUMAN RESOURCES MANAGER) [facility] Method Time Signature Calcium, 4.60 (L) 4.65 - 07/15/2018 [facility] Ionized, B 5.30 8:54 PM DIVISION HUMAN RESOURCES MANAGER LABORATORIES - mg/dL [facility] Specimen Anatomical Collection Method Collection Time Receive d Time (Source) Location / / Volume Laterality Blood (Blood, 07/15/2018 8:52 PM 07/15/19 19 8:52 Arterial Line) DIVISION HUMAN RESOURCES MANAGER PM DIVISION HUMAN RESOURCES MANAGER Resulting Agency Comment Drawn in OR Shara Santiago M.D. LAB BLOOD NON ADD-ON Performing Organization Address City/State/ZIP Code Phon e Number [facility]IES - [address] [place], [place] [address] [facility] (ABNORMAL) Blood Gas with Coox, Arterial (07/15/2018 8:52 PM DIVISION HUMAN RESOURCES MANAGER) [facility] Method Time Signature pO2 208 (H) 83 - 108 07/15/2018 [facility] mm Hg 8:54 PM DIVISION HUMAN RESOURCES MANAGER LABORATORIES - [facility] pCO2 34 32 - 45 07/15/2018 [facility] mm Hg 8:54 PM DIVISION HUMAN RESOURCES MANAGER LABORATORIES - [facility] pH 7.41 7.35 - 07/15/2018 [facility] 7.45 pH 8:54 PM DIVISION HUMAN RESOURCES MANAGER LABORATORIES - [facility] Base Excess -3 (L) -2 - 3 07/15/2018 [facility] mmol/L 8:54 PM DIVISION HUMAN RESOURCES MANAGER LABORATORIES - [facility] HCO3 22 22 - 26 07/15/2018 [facility] mmol/L 8:54 PM DIVISION HUMAN RESOURCES MANAGER LABORATORIES - [facility] Hemoglobin, B 15.6 (H) 11.6 - 07/15/2018 [facility] 15.0 g/dL 8:54 PM DIVISION HUMAN RESOURCES MANAGER LABORATORIES - [facility] O2Hb 98.0 94.0 - 07/15/2018 [facility] 98.0 % 8:54 PM DIVISION HUMAN RESOURCES MANAGER LABORATORIES - [facility] COHb 1.6 <3.0 % 07/15/2018 [facility] 8:54 PM DIVISION HUMAN RESOURCES MANAGER LABORATORIES - [facility] MetHb <1.0 <1.5 % 07/15/2018 [facility] 8:54 PM DIVISION HUMAN RESOURCES MANAGER LABORATORIES - [facility] CtO2 21.9 (H) 18.0 - 07/15/2018 [facility] 21.0 vol 8:54 PM DIVISION HUMAN RESOURCES MANAGER LABORATORIES - % [facility] Specimen Anatomical Collection Method Collection Time Receive d Time (Source) Location / / Volume Laterality Blood (Blood, 07/15/2018 8:52 PM 07/15/19 19 8:52 Arterial Line) DIVISION HUMAN RESOURCES MANAGER PM DIVISION HUMAN RESOURCES MANAGER Resulting Agency Comment Drawn in OR Shara Santiago M.D. LAB BLOOD NON ADD-ON Performing Organization Address City/State/ZIP Code Phon e Number [facility]IES - [address] [place], [place] [address] [facility] ([place]) Critical Care (07/15/2018 8:39 PM DIVISION HUMAN RESOURCES MANAGER) Narrative Rashi De Luna Jr., M.D. - 07/15/19 19 8:39 PM DIVISION HUMAN RESOURCES MANAGER Rashi De Luna Jr., M.D. ? 07/15/2018 [...] Platelet Count - Intra-Op (07/15/2018 8:07 PM DIVISION HUMAN RESOURCES MANAGER) [facility] Method Time Signature Platelet Count 117 (L) 157 - 371 07/15/2018 [facility] x10(9)/L 8:12 PM DIVISION HUMAN RESOURCES MANAGER LABORATORIES - [facility] ([place]) Specimen Anatomical Collection Method Collection Time Receive d Time (Source) Location / / Volume Laterality Blood (Blood, 07/15/2018 8:07 PM 07/15/19 19 8:07 Arterial Line) DIVISION HUMAN RESOURCES MANAGER PM DIVISION HUMAN RESOURCES MANAGER Resulting Agency Comment Drawn in OR Tomás Mohamud M.D. LAB BLOOD ADD-ON Performing Organization Address City/[facility] Code Phon e Number [facility] LABORATORIES - [address] [address] [facility] ([place]) Patient Status (07/15/2018 8:02 PM DIVISION HUMAN RESOURCES MANAGER) athologist Signature FIO2 0.48 0.21=AIR 07/15/2018 [facility] 8:02 PM DIVISION HUMAN RESOURCES MANAGER [facility] [place] Specimen Anatomical Collection Method Collection Time Receive d Time (Source) Location / / Volume Laterality Blood 07/15/2018 8:02 PM 9 8:02 DIVISION HUMAN RESOURCES MANAGER PM DIVISION HUMAN RESOURCES MANAGER Resulting Agency Comment Drawn in OR Isa Ta APRN, MADAN, D.N.P. LAB BLOOD NON AD D-ON Performing Organization Address City/[facility] Phon e Number [facility] - [address] [address] [facility] ([place]) (ABNORMAL) Lactate, Whole Blood - Intra-op (07/15/2018 8:02 PM DIVISION HUMAN RESOURCES MANAGER) athologist Signature Lactate, B 2.7 (H) 0.5 - 2.2 07/15/2018 [facility] mmol/L 8:04 PM DIVISION HUMAN RESOURCES MANAGER [facility] [place] Specimen Anatomical Collection Method Collection Time Receive d Time (Source) Location / / Volume Laterality Blood (Blood, 07/15/2018 8:02 PM 07/15/19 19 8:02 Arterial Line) DIVISION HUMAN RESOURCES MANAGER PM DIVISION HUMAN RESOURCES MANAGER Resulting Agency Comment Drawn in [place] Tomás Mohamud M.D. LAB BLOOD NON ADD-ON Performing Organization Address City/[facility] Phon e Number [facility] LABORATORIES - [address] [address] [facility] ([place]) (ABNORMAL) Glucose, Whole Blood (07/15/2018 8:02 PM DIVISION HUMAN RESOURCES MANAGER) athologist Signature Glucose 208 (H) 70 - 140 07/15/2018 [facility] mg/dL 8:04 PM DIVISION HUMAN RESOURCES MANAGER [facility] [place] Specimen Anatomical Collection Method Collection Time Receive d Time (Source) Location / / Volume Laterality Blood (Blood, 07/15/2018 8:02 PM 07/15/19 8:02 Arterial Line) DIVISION HUMAN RESOURCES MANAGER PM DIVISION HUMAN RESOURCES MANAGER Resulting Agency Comment Drawn in [place] Tomás Mohamud M.D. LAB BLOOD TROPONIN Performing Organization Address City/[facility]/ZIP Code Phon e Number [facility] LABORATORIES - [address] [address] [facility] ([place]) Potassium, Blood (07/15/2018 8:02 PM DIVISION HUMAN RESOURCES MANAGER) athologist Signature Potassium, B 4.7 3.6 - 5.2 07/15/2018 [facility] mmol/L 8:04 PM DIVISION HUMAN RESOURCES MANAGER LABORATORIES [facility] Specimen Anatomical Collection Method Collection Time Receive d Time (Source) Location / / Volume Laterality Blood (Blood, 07/15/2018 8:02 PM 07/15/19 8:02 Arterial Line) DIVISION HUMAN RESOURCES MANAGER PM DIVISION HUMAN RESOURCES MANAGER Resulting Agency Comment Drawn in [place] Tomás Mohamud M.D. LAB BLOOD NON ADD-ON Performing Organization Address City/[facility]/ZIP Code Phon e Number [facility]IES - [address] [address] 05 [facility] ([place]) Sodium, B (07/15/2018 8:02 PM DIVISION HUMAN RESOURCES MANAGER) athologist Signature Sodium, B 139 135 - 145 07/15/2018 [facility] mmol/L 8:04 PM DIVISION HUMAN RESOURCES MANAGER [facility] [place] Specimen Anatomical Collection Method Collection Time Receive d Time (Source) Location / / Volume Laterality Blood (Blood, 07/15/2018 8:02 PM 07/15/19 8:02 Arterial Line) DIVISION HUMAN RESOURCES MANAGER PM DIVISION HUMAN RESOURCES MANAGER Resulting Agency Comment Drawn in [place] Tomás Mohamud M.D. LAB BLOOD NON ADD-ON Performing Organization Address City/[facility]/ZIP Code Phon e Number [facility]IES - [address] [address] 05 [facility] ([place]) Calcium, Ionized (07/15/2018 8:02 PM DIVISION HUMAN RESOURCES MANAGER) athologist Signature Calcium, 4.78 4.65 - 07/15/2018 [facility] Ionized, B 5.30 mg/dL 8:04 PM DIVISION HUMAN RESOURCES MANAGER LABORATORIES [facility] Specimen Anatomical Collection Method Collection Time Receive d Time (Source) Location / / Volume Laterality Blood (Blood, 07/15/2018 8:02 PM 07/15/19 8:02 Arterial Line) DIVISION HUMAN RESOURCES MANAGER PM DIVISION HUMAN RESOURCES MANAGER Resulting Agency Comment Drawn in [place] Tomás Mohamud M.D. LAB BLOOD NON ADD-ON Performing Organization Address City/[facility]/ZIP Code Phon e Number [facility]IES - [address] [address] [facility] ([place]) ([place]NORMAL) Blood Gas with Coox, Arterial (07/15/2018 8:02 PM DIVISION HUMAN RESOURCES MANAGER) [facility] Method Time Signature pO2 234 (H) 83 - 108 07/15/2018 [facility] mm Hg 8:04 PM DIVISION HUMAN RESOURCES MANAGER LABORATORIES [facility] pCO2 31 (L) 32 - 45 07/15/2018 [facility] mm Hg 8:04 PM DIVISION HUMAN RESOURCES MANAGER LABORATORIES [facility] pH 7.47 (H) 7.35 - 07/15/2018 [facility] 7.45 pH 8:04 PM DIVISION HUMAN RESOURCES MANAGER LABORATORIES [facility] Base Excess -1 -2 - 3 07/15/2018 [facility] mmol/L 8:04 PM DIVISION HUMAN RESOURCES MANAGER LABORATORIES [facility] HCO3 23 22 - 26 07/15/2018 [facility] mmol/L 8:04 PM DIVISION HUMAN RESOURCES MANAGER LABORATORIES [facility] Hemoglobin, B 12.8 11.6 - 07/15/2018 [facility] 15.0 g/dL 8:04 PM DIVISION HUMAN RESOURCES MANAGER LABORATORIES [facility] O2Hb 97.9 94.0 - 07/15/2018 [facility] 98.0 % 8:04 PM DIVISION HUMAN RESOURCES MANAGER LABORATORIES [facility] COHb 1.6 <3.0 % 07/15/2018 [facility] 8:04 PM DIVISION HUMAN RESOURCES MANAGER LABORATORIES [facility] MetHb <1.0 <1.5 % 07/15/2018 [facility] 8:04 PM DIVISION HUMAN RESOURCES MANAGER LABORATORIES [facility] CtO2 18.1 18.0 - 07/15/2018 [facility] 21.0 vol 8:04 PM DIVISION HUMAN RESOURCES MANAGER LABORATORIES - [facility] Specimen Anatomical Collection Method Collection Time Receive d Time (Source) Location / / Volume Laterality Blood (Blood, 07/15/2018 8:02 PM 07/15/19 19 8:02 Arterial Line) DIVISION HUMAN RESOURCES MANAGER PM DIVISION HUMAN RESOURCES MANAGER Resulting Agency Comment Drawn in [place] Tomás Mohamud M.D. LAB BLOOD NON ADD-ON Performing Organization Address City/[facility]/ZIP Code Phon e Number [facility]IES - [address] [address] [facility] ([place]) Transfuse autologous RBC (Cell Salvage) : (07/15/2018 7:53 PM DIVISION HUMAN RESOURCES MANAGER) Tomás Mohamud M.D. BLOOD TRANSFUSION ORDERABLES Transfuse autologous RBC (Cell Salvage) : (07/15/2018 7:32 PM DIVISION HUMAN RESOURCES MANAGER) Tomás Mohamud M.D. BLOOD TRANSFUSION ORDERABLES Surgical Pathology, Frozen Lab (07/15/2018 7:28 PM DIVISION HUMAN RESOURCES MANAGER) Component Value Ref Test Analysis Performed At [facility] Range Method Time Signature Gross Description A. ??Received in formalin labeled spleen is a 2 30 gram, 07/17/2018 [facility] 11.5 x 8.3 x 4.1 cm splenectomy specimen. ??The capsule is 3:06 PM LABORATORIES - disrupted. ??There is a 6.2 x 4.1 x 3.1 cm laceration. [facility] tissue submitted for permanent sections. CAMPUS Grossed by MAP. ??Photographed Participated in Jeannine Orona, 07/17/2018 [facility] johnathon Aguilar, 3:06 PM LABORATORIES - Interpretation B.Ch.-Pathology [facility] Report Antonio Madera M.D. [phone] 07/17/2018 [facility] electronically I verify that I have examined all relevant slides/ma terials 3:06 PM LABORATORIES - signed by for the specimen(s) and rendered or confirmed the diagnosi s. [facility] 07/17/2018 [facility] 3:06 PM LABORATORIES - [facility] Block Summary A Spleen 07/17/2018 [facility] A1 Spleen 3:06 PM LABORATORIES - [facility] Interpretation FINAL DIAGNOSIS 07/17/2018 [facility] A. 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 [facility] Specimen (Source) Anatomical Collection Method Collection Time Re ceived Time Location / / Volume Laterality Tissue (Spleen) 07/15/2018 7:28 PM DIVISION HUMAN RESOURCES MANAGER Narrative This result has an attachment that is no t available. Lourdes Brown M.D. LAB SURG PATH ORDERABLES Performing Organization Address City/State/ZIP Code Phon e Number [facility] LAB[facility]ATORIES - [address] [place], [place] [address] [facility] ([place]) Patient Status (07/15/2018 7:24 PM DIVISION HUMAN RESOURCES MANAGER) P athologist Signature FIO2 0.50 0.21=AIR 07/15/2018 [facility] 7:24 PM DIVISION HUMAN RESOURCES MANAGER [facility] [place] Specimen Anatomical Collection Method Collection Time Receive d Time (Source) Location / / Volume Laterality Blood 07/15/2018 7:24 PM 9 7:24 DIVISION HUMAN RESOURCES MANAGER PM DIVISION HUMAN RESOURCES MANAGER Jazmine Santiago APRN, R.N. LAB BLOOD NON ADD-ON Performing Organization Address City/[facility]/ZIP Code Phon e Number [facility]IES - [address] [address] [facility] ([place]) (ABNORMAL) Lactate, Whole Blood - Intra-op (07/15/2018 7:24 PM DIVISION HUMAN RESOURCES MANAGER) P athologist Signature Lactate, B 3.2 (H) 0.5 - 2.2 07/15/2018 [facility] mmol/L 7:28 PM DIVISION HUMAN RESOURCES MANAGER [facility] [place] Specimen Anatomical Collection Method Collection Time Receive d Time (Source) Location / / Volume Laterality Blood (Blood, 07/15/2018 7:24 PM 07/15/19 19 7:24 Arterial Line) DIVISION HUMAN RESOURCES MANAGER PM DIVISION HUMAN RESOURCES MANAGER Tomás Mohamud M.D. LAB BLOOD NON ADD-ON Performing Organization Address City/[facility]/ZIP Code Phon e Number [facility]IES - [address] [address] [facility] ([place]) ([place]NORMAL) Glucose, Whole Blood (07/15/2018 7:24 PM DIVISION HUMAN RESOURCES MANAGER) P athologist Signature Glucose 257 (H) 70 - 140 07/15/2018 [facility] mg/dL 7:28 PM DIVISION HUMAN RESOURCES MANAGER [facility] [place] Specimen Anatomical Collection Method Collection Time Receive d Time (Source) Location / / Volume Laterality Blood (Blood, 07/15/2018 7:24 PM 07/15/19 19 7:24 Arterial Line) DIVISION HUMAN RESOURCES MANAGER PM DIVISION HUMAN RESOURCES MANAGER Tomás Mohamud M.D. LAB BLOOD TROPONIN Performing Organization Address City/[facility]/ZIP Code Phon e Number [facility] LAB[facility]ATORIES - [address] [address] [facility] ([place]) Potassium, Blood (07/15/2018 7:24 PM DIVISION HUMAN RESOURCES MANAGER) P athologist Signature Potassium, B 4.6 3.6 - 5.2 07/15/2018 [facility] mmol/L 7:28 PM DIVISION HUMAN RESOURCES MANAGER [facility] [place] Specimen Anatomical Collection Method Collection Time Receive d Time (Source) Location / / Volume Laterality Blood (Blood, 07/15/2018 7:24 PM 07/15/19 7:24 Arterial Line) DIVISION HUMAN RESOURCES MANAGER PM DIVISION HUMAN RESOURCES MANAGER Tomás Mohamud M.D. LAB BLOOD NON ADD-ON Performing Organization Address City/[facility]/ZIP Code Phon e Number [facility]IES - [address] [address] [facility] ([place]) Sodium, B (07/15/2018 7:24 PM DIVISION HUMAN RESOURCES MANAGER) P athologist Signature Sodium, B 139 135 - 145 07/15/2018 [facility] mmol/L 7:28 PM DIVISION HUMAN RESOURCES MANAGER LABORATORIES - [facility] ([place]) Specimen Anatomical Collection Method Collection Time Receive d Time (Source) Location / / Volume Laterality Blood (Blood, 07/15/2018 7:24 PM 07/15/19 19 7:24 Arterial Line) DIVISION HUMAN RESOURCES MANAGER PM DIVISION HUMAN RESOURCES MANAGER Tomás Mohamud M.D. LAB BLOOD NON ADD-ON Performing Organization Address City/[facility]/ZIP Code Phon e Number [facility] LAB[facility]IES - [address] [address] [facility] ([place]) ([place]NORMAL) Calcium, Ionized (07/15/2018 7:24 PM DIVISION HUMAN RESOURCES MANAGER) [facility] gist Method Time Signature Calcium, 2.61 (CL) 4.65 - 07/15/2018 [facility] Ionized, B 5.30 7:28 PM DIVISION HUMAN RESOURCES MANAGER LABORATORIES - mg/dL [facility] ([place]) Specimen Anatomical Collection Method Collection Time Receive d Time (Source) Location / / Volume Laterality Blood (Blood, 07/15/2018 7:24 PM 07/15/19 19 7:24 Arterial Line) DIVISION HUMAN RESOURCES MANAGER PM DIVISION HUMAN RESOURCES MANAGER Tomás Mohamud M.D. LAB BLOOD NON ADD-ON Performing Organization Address City/[facility]/ZIP Code Phon e Number [facility]IES - [address] [address] [facility] ([place]) ([place]NORMAL) Blood Gas with Coox, Arterial (07/15/2018 7:24 PM DIVISION HUMAN RESOURCES MANAGER) [facility] gist Method Time Signature pO2 221 (H) 83 - 108 07/15/2018 [facility] mm Hg 7:28 PM DIVISION HUMAN RESOURCES MANAGER LABORATORIES - [facility] ([place]) pCO2 45 32 - 45 07/15/2018 [facility] mm Hg 7:28 PM DIVISION HUMAN RESOURCES MANAGER LABORATORIES - [facility] ([place] pH 7.21 (L) 7.35 - 07/15/2018 [facility] 7.45 pH 7:28 PM DIVISION HUMAN RESOURCES MANAGER LABORATORIES [facility] Base Excess -10 (L) -2 - 3 07/15/2018 [facility] mmol/L 7:28 PM DIVISION HUMAN RESOURCES MANAGER LABORATORIES - [facility] ([place]) HCO3 18 (L) 22 - 26 07/15/2018 [facility] mmol/L 7:28 PM DIVISION HUMAN RESOURCES MANAGER LABORATORIES [facility] Hemoglobin, B 13.2 11.6 - 07/15/2018 [facility] 15.0 g/dL 7:28 PM DIVISION HUMAN RESOURCES MANAGER LABORATORIES [facility] O2Hb 97.8 94.0 - 07/15/2018 [facility] 98.0 % 7:28 PM DIVISION HUMAN RESOURCES MANAGER LABORATORIES [facility] COHb 1.6 <3.0 % 07/15/2018 [facility] 7:28 PM DIVISION HUMAN RESOURCES MANAGER LABORATORIES [facility] MetHb <1.0 <1.5 % 07/15/2018 [facility] 7:28 PM DIVISION HUMAN RESOURCES MANAGER LABORATORIES [facility] CtO2 18.7 18.0 - 07/15/2018 [facility] 21.0 vol 7:28 PM DIVISION HUMAN RESOURCES MANAGER LABORATORIES [facility] Specimen Anatomical Collection Method Collection Time Receive d Time (Source) Location / / Volume Laterality Blood (Blood, 07/15/2018 7:24 PM 07/15/19 19 7:24 Arterial Line) DIVISION HUMAN RESOURCES MANAGER PM DIVISION HUMAN RESOURCES MANAGER Tomás Mohamud M.D. LAB BLOOD NON ADD-ON Performing Organization Address City/State/ZIP Code Phon e Number [facility]ATORIES - [address] Transfuse autologous RBC (Cell Salvage) : (07/15/2018 7:23 PM DIVISION HUMAN RESOURCES MANAGER) oTmás Mohamud M.D. BLOOD TRANSFUSION ORDERABLES (ABNORMAL) PT (Prothrombin Time) with INR - Intra-Op (07/15/2018 7:23 PM DIVISION HUMAN RESOURCES MANAGER) [facility] Method Time Signature Prothrombin 13.9 (H) 9.4 - 07/15/2018 [facility] Time, P 12.5 sec 7:38 PM DIVISION HUMAN RESOURCES MANAGER LABORATORIES [facility] INR 1.3 0.9 - 1.1 07/15/2018 [facility] 7:38 PM DIVISION HUMAN RESOURCES MANAGER LABORATORIES [facility] Comment: ----ADDITIONAL INFORMATION---- Standard intensity warfarin therapeutic range: 2.0 to 3.0 ?? High intensity warfarin therapeutic rang e: 2.5 to 3.5 Specimen Anatomical Collection Method Collection Time Receive d Time (Source) Location / / Volume Laterality Blood (Blood, 07/15/2018 7:23 PM 07/15/19 19 7:23 Arterial Line) DIVISION HUMAN RESOURCES MANAGER PM DIVISION HUMAN RESOURCES MANAGER Tomás Mohamud M.D. LAB BLOOD ADD-ON Performing Organization Address City/[facility]/ZIP Code Phon e Number [facility] - [address] [address] [facility] ([place]) (ABNORMAL) Platelet Count - Intra-Op (07/15/2018 7:23 PM DIVISION HUMAN RESOURCES MANAGER) Analysis Performed At Patho logist Time Signature Platelet Count 86 (L) 157 - 371 07/15/2018 [facility] x10(9)/L 7:31 PM DIVISION HUMAN RESOURCES MANAGER LABORATORIES - [facility] ([place] Specimen Anatomical Collection Method Collection Time Receive d Time (Source) Location / / Volume Laterality Blood (Blood, 07/15/2018 7:23 PM 07/15/19 19 7:23 Arterial Line) DIVISION HUMAN RESOURCES MANAGER PM DIVISION HUMAN RESOURCES MANAGER Tomás Mohamud M.D. LAB BLOOD ADD-ON Performing Organization Address City/[facility]/ZIP Code Phon e Number [facility] - [address] [address] [facility] ([place]) (ABNORMAL) Fibrinogen - Intra-Op (07/15/2018 7:23 PM DIVISION HUMAN RESOURCES MANAGER) Patholo gist Method Time Signature Fibrinogen, P 152 (L) 200 - 393 07/15/2018 [facility] mg/dL 7:38 PM DIVISION HUMAN RESOURCES MANAGER LABORATORIES - [facility] ([place]) Specimen Anatomical Collection Method Collection Time Receive d Time (Source) Location / / Volume Laterality Blood (Blood, 07/15/2018 7:23 PM 07/15/19 19 7:23 Arterial Line) DIVISION HUMAN RESOURCES MANAGER PM DIVISION HUMAN RESOURCES MANAGER Tomás Mohamud M.D. LAB BLOOD ADD-ON Performing Organization Address City/[facility]/ZIP Code Phon e Number [facility]IES - [address] [address] [facility] ([place]) APTT (Activated Partial Thromboplastin Time) - Intra-Op (07/15/2018 7:23 PM DIVISION HUMAN RESOURCES MANAGER) P athologist Signature Activated 25 25 - 37 07/15/2018 [facility] Partial sec 7:40 PM DIVISION HUMAN RESOURCES MANAGER LABORATORIES - Thrombopl [facility], [facility] Specimen Anatomical Collection Method Collection Time Receive d Time (Source) Location / / Volume Laterality Blood (Blood, 07/15/2018 7:23 PM 07/15/19 19 7:23 Arterial Line) DIVISION HUMAN RESOURCES MANAGER PM DIVISION HUMAN RESOURCES MANAGER Tomás Mohamud M.D. LAB BLOOD ADD-ON Performing Organization Address City/[facility]/ZIP Code Phon e Number [facility]ATORIES - [address] Transfuse Emergency Released Platelets (07/15/2018 7:22 PM DIVISION HUMAN RESOURCES MANAGER) Tomás Mohamud M.D. BLOOD TRANSFUSION ORDERABLES Type and Screen - Intra-op (07/15/2018 7:15 PM DIVISION HUMAN RESOURCES MANAGER) [facility] gist Method Time Signature ABORh A Pos Not 07/15/2018 [facility] applicable 8:34 PM LABORATORIES - [facility] Antibody Negative Negative 07/15/2018 [facility] Screen 7:55 PM LABORATORIES - DIVISION HUMAN RESOURCES MANAGER [facility] Type & [id number] 07/15/2018 [facility] Screen 7:55 PM LABORATORIES - Expiration DIVISION HUMAN RESOURCES MANAGER [facility] Testing Dara DEFAULT 07/15/2018 [facility] Location 7:21 PM LABORATORIES - [facility] Specimen Anatomical Collection Method Collection Time Receive d Time (Source) Location / / Volume Laterality Blood (Blood, 07/15/2018 7:15 PM 07/15/19 19 7:21 Arterial Line) DIVISION HUMAN RESOURCES MANAGER PM DIVISION HUMAN RESOURCES MANAGER Tomás Mohamud M.D. LAB BLOOD BANK TEST ORDERABL ES Performing Organization Address [facility] Phon e Number [facility] LAB[facility]ATORIES - [address] documented in this encounter Visit Diagnoses Not on filedocumented in this encounter Admitting Diagnoses Diagnosis Major Laceration Spleen Initial documented in this encounter Administered Medications Inactive Administered Medications - up to 3 most recent administrations Medication Order MAR Action Action Date Dose Rate Site acetaminophen tablet 1,000 mg Given 07/22/2018 6:46 PM DIVISION HUMAN RESOURCES MANAGER 1,000 mg (TYLENOL) 1,000 mg, oral, Every 6 hours, First dose (after last modification) on 07/22/18 at 0700 Given 07/22/2018 2:05 PM DIVISION HUMAN RESOURCES MANAGER 1,000 mg Given 07/22/2018 7:49 AM DIVISION HUMAN RESOURCES MANAGER 1,000 mg bisacodyl suppository 10 mg (DULCOLAX) Given 07/22/2018 9:12 AM DIVISION HUMAN RESOURCES MANAGER 10 mg 10 mg, rectal, Daily, First dose on Maru 2/7/19 at 0930 Given 07/20/2018 8:29 AM DIVISION HUMAN RESOURCES MANAGER 10 mg Given 07/18/2018 11:38 AM DIVISION HUMAN RESOURCES MANAGER 10 mg cholecalciferol tablet 1,000 Units Given 07/22/2018 9:09 AM DIVISION HUMAN RESOURCES MANAGER 1,000 Units (VITAMIN D3) 1,000 Units, oral, Daily, First dose on Sun07/17/18 at 0900 Given 07/21/2018 9:33 AM DIVISION HUMAN RESOURCES MANAGER 1,000 Units Given 07/20/2018 8:29 AM DIVISION HUMAN RESOURCES MANAGER 1,000 Units dicyclomine tablet 20 mg (BENTYL) Given 07/22/2018 2:05 PM DIVISION HUMAN RESOURCES MANAGER 20 mg 20 mg, oral, 3 times daily, First dose on Sun07/16/18 at 2100 Given 07/22/2018 9:10 AM DIVISION HUMAN RESOURCES MANAGER 20 mg Given 07/21/2018 8:32 PM DIVISION HUMAN RESOURCES MANAGER 20 mg enoxaparin injection 30 mg Given 07/22/2018 9:11 AM DIVISION HUMAN RESOURCES MANAGER 30 mg Left Upper Arm (LOVENOX) (Back) 30 mg, subcutaneous, 2 times daily, First dose on Sun07/16/18 at 2100, Drug Monitoring Program: Pharmacist to adjust medication dosing based on indication and drug clearance factors. Given 07/21/2018 8:32 PM DIVISION HUMAN RESOURCES MANAGER 30 mg Left Upper Arm (Back) Given 07/21/2018 9:32 AM DIVISION HUMAN RESOURCES MANAGER 30 mg Left Lower Abdomen Lactobacillus rhamnosus GG capsule 2 Given 07/21/2018 8:32 PM CS T 2 capsules capsule (CULTURELLE) 2 capsule, oral, Daily at bedtime, First dose on Sun07/16/18 at 2100, Space 2 hours away from oral antibiotics Given 07/20/2018 8:10 PM DIVISION HUMAN RESOURCES MANAGER 2 capsules Given 07/19/2018 9:14 PM DIVISION HUMAN RESOURCES MANAGER 2 capsules lidocaine 5 % 1 patch Medication Applied 07/22/2018 9:10 AM 1 patch Upper Back (LIDODERM) DIVISION HUMAN RESOURCES MANAGER 1 patch, transdermal, Administer over 12 Hours, Daily, First dose (after last modification) on Sun07/17/18 at 0930, May apply up to 3 patches per day. Medication Applied 07/21/2018 9:33 AM DIVISION HUMAN RESOURCES MANAGER 1 patch Mid Back Medication Applied 07/20/2018 8:28 AM DIVISION HUMAN RESOURCES MANAGER 1 patch Chest ondansetron (PF) injection 4 mg (ZOFRAN) Given 07/17/2018 9:19 AM DIVISION HUMAN RESOURCES MANAGER 4 mg 4 mg, intravenous, Every 6 hours PRN, nausea, vomiting, Starting on Sun07/17/18 at 0908 oxyCODONE IR tablet 5 mg (ROXICODONE) 5 mg, oral, Every 4 hours PRN, moderate pain or score 4-6 of 10, severe pain or score 7-10 of 10, Starting on Sun07/17/18 at 0901 polyethylene glycol powder packet 17 g Given 07/22/2018 9:10 AM DIVISION HUMAN RESOURCES MANAGER 17 g (MIRALAX) 17 g, oral, Daily, First dose (after last modification) on Sun07/18/18 at 0900, Dissolve in 240 mLs (8 ounces) of water prior to giving. Avoid mixing with starch-based thickened liquids. Given 07/21/2018 9:31 AM DIVISION HUMAN RESOURCES MANAGER 17 g Given 07/20/2018 8:28 AM DIVISION HUMAN RESOURCES MANAGER 17 g pregabalin capsule 75 mg (LYRICA) Given 07/22/2018 9:09 AM DIVISION HUMAN RESOURCES MANAGER 75 mg 75 mg, oral, 2 times daily, First dose (after last reorder) on Sun07/19/18 at 2100, For 7 days Given 07/21/2018 8:32 PM DIVISION HUMAN RESOURCES MANAGER 75 mg Given 07/21/2018 9:33 AM DIVISION HUMAN RESOURCES MANAGER 75 mg sennosides-docusate sodium 8.6-50 mg per Given 07/22/2018 9: 09 AM DIVISION HUMAN RESOURCES MANAGER 2 tablets tablet 2 tablet (SENOKOT-S) 2 tablet, oral, 2 times daily, First dose (after last modification) on Sun07/17/18 at 2100 Given 07/21/2018 8:32 PM DIVISION HUMAN RESOURCES MANAGER 2 tablets Given 07/21/2018 9:32 AM DIVISION HUMAN RESOURCES MANAGER 2 tablets sertraline tablet 200 mg (ZOLOFT) Given 07/22/2018 9:09 AM DIVISION HUMAN RESOURCES MANAGER 200 mg 200 mg, oral, Daily, First dose on Sun07/17/18 at 0900 Given 07/21/2018 9:32 AM DIVISION HUMAN RESOURCES MANAGER 200 mg Given 07/20/2018 8:29 AM DIVISION HUMAN RESOURCES MANAGER 200 mg sodium chloride 0.9 % injection 3 mL 3 mL, intravenous, As needed, line care, Peripheral Intravenous Catheter and Rapid Infusion Catheter, Starting on Sun 9 at 1114, Prior to and following infusion and between multiple consecutive infusions. sodium chloride 0.9 % injection 3 mL Given 07/22/2018 9:10 AM DIVISION HUMAN RESOURCES MANAGER 3 mL 3 mL, intravenous, Every 12 hours scheduled, First dose on Sun07/19/18 at 2100, Peripheral Intravenous Catheter and Rapid Infusion Catheter: When no infusion to maintain patency. Given 07/21/2018 9:46 AM DIVISION HUMAN RESOURCES MANAGER 3 mL Given 07/20/2018 8:14 PM DIVISION HUMAN RESOURCES MANAGER 3 mL traMADol tablet 50 mg (ULTRAM) Given 07/22/2018 6:47 PM DIVISION HUMAN RESOURCES MANAGER 50 mg 50 mg, oral, Every 6 hours, First dose (after last modification) on Sun07/17/18 at 1400, Drug Monitoring Program: Pharmacist to adjust medication dosing based on indication and drug clearance factors. Given 07/22/2018 2:05 PM DIVISION HUMAN RESOURCES MANAGER 50 mg Given 07/22/2018 7:48 AM DIVISION HUMAN RESOURCES MANAGER 50 mg documented in this encounter Active and Recently Administered Medications Times are shown in DIVISION HUMAN RESOURCES MANAGER. Scheduled Medication Order 07/20/2018 07/21/2018 07/22/2018 acetaminophen tablet 1,000 mg (TYLENOL) (CANCELED) 082 9 (Given - Provider: Rosalie Kim RIsabel)1134 (Given - Provider: Rosalie Kim R.N.)1800 (Given - Provider: Rosalie Kim R.N.)2010 (Given - Provider: Tracey Bolaños RYvonneN.) 0740 (Given - Provider: Hayden Rodriguez RYvonneN.)1210 (Given - Provider: Hayden Rodriguez RYvonneN.)1653 (Given - Provider: Hayden Rodriguez RYvonneN.)2032 (Given - Provider: Bebo Moctezuma RYvonneNYvonne) 1,000 mg, oral, 4 times daily, First dos e (after last modification) on Sun07/17/18 at 1200 acetaminophen tablet 1,000 mg (TYLENOL) 0749 (Given - Provider: Debbie Jacobo)1405 (Given - Provider: Nelsy Brown RYvonneN.)1846 (Given - Provider: Rashmi Snow RYvonneNYvonne) 1,000 mg, oral, Every 6 hours, First dos e (after last modification) on Sun07/22/18 at 0700 bisacodyl suppository 10 mg (DULCOLAX) 0829 (Given - P rovider: Rosalie Kim R.N.) 0946 (Not Given - Provider: Hayden bustamante RYvonneNYvonne - Reason: Patient/family refused) 09 (Given - Provider: Debbie Jacobo) 10 mg, rectal, Daily, First dose on Sun07/18/18 at 0930 bisacodyl suppository 10 mg (DULCOLAX) 2129 (Due ) 10 mg, rectal, Once, 07/21/18 at 2130, For 1 dose cholecalciferol tablet 1,000 Units (VITAMIN D3) 08 ( Given - Provider: Rosalie Kim R.N.) 0933 (Given - Provider: Hayden Rordiguez R.N.) 09 (G iven - Provider: Debbie Jacobo) 1,000 Units, oral, Daily, First dose on Sun07/17/18 at 0900 dicyclomine tablet 20 mg (BENTYL) 0829 (Given - Provid er: Rosalie Kim R.N.)140 (Given - Provider: Rosalie Kim R.N.)2010 (Given - Provider: Tracey Bolaños R.N.) 09 (Given - Provider: Hayden Rodriguez R.N.)133 (Given - Provider: Hayden Rodriguez R.N.)2031 (Given - Provider: Bebo Moctezuma RIsabel) 09 (Given - Provider: Debbie Jacobo)140 (Given - Provider: Nelsy Brown RYvonneNYvonne) 20 [...] polyethylene glycol powder packet 17 g (MIRALAX) 08 (Given - Provider: Rosalie Kim R.N.) 09 (Given - Provider: Hayden Rodriguez R.N.) 0910 (G iven - Provider: Nelsy Brown R.N.) 17 g, oral, Daily, First dose (after las t modification) on Sun07/18/18 at 0900, Dissolve in 240 mLs (8 ounces) of water prior to giving. Avoid mixing with starch-based thickened liquids. pregabalin capsule 75 mg (LYRICA) 08 (Given - Provid er: Rosalie Kim R.N.)2010 (Given - Provider: Tracey Bolaños R.N.) 932 (Given - Provider: Hayden Rodriguez R.N.)2031 (Given - Provider: Bebo Moctezuma R.N.) 09 (Given - Provider: Debbie Jacobo) 75 mg, oral, 2 times daily, First dose ( after last reorder) on Sun07/19/18 at 2100, For 7 days sennosides-docusate sodium 8.6-50 mg per tablet 2 tabl et (SENOKOT-S) 828 (Given - Provider: Rosalie Kim R.N.)2009 (Given - Provider: Tracey Bolaños R.N.) 931 (Given - Provider: Hayden Rodriguez R.N.)2031 (Given - Provider: Bebo Moctezuma R.N.) 09 (Given - Provider: Debbie Jacobo) 2 tablet, oral, 2 times daily, First dos e (after last modification) on Sun07/17/18 at 2100 sertraline tablet 200 mg (ZOLOFT) 08 (Given - Provider: Anup Kim RYvonneNYvonne) 0932 (Given - Provider: Hayden Rodriguez R.N.) 09 (Given - Provider: Debbie Jacobo) 200 mg, oral, Daily, First dose on Sun07/17/18 at 0900 sodium chloride 0.9 % injection 3 mL 1114 (Not Given - Provider: Rosaile Kim R.N. - Reason: Other)2013 (Given - Provider: Tracey Bolaños R.N.) 945 (Given - Provider: Hayden Rodriguez R.N.)2099 (Due) 909 (Given - Provider: Nelsy Brown R.N.) 3 mL, intravenous, Every 12 hours schedu led, First dose on Sun07/19/18 at 2100, Peripheral Intravenous Catheter and Rapid Infusion Catheter: When no infusion to maintain patency. traMADol tablet 50 mg (ULTRAM) 0232 (Given - Provider: Dianne Page R.NYvonne)0829 (Given - Provider: Rosalie Kim R.NYvonne)1401 (Given - Provider: Rosalie Kim RAlberto.)2009 (Given - Provider: Indio HughesNYvonne) 0104 (Given - Provider: Romina Oneill R.NYvonne)0740 (Given - Provider: Hayden Rodriguez R.N.)1339 (Given - Provider: Hayden Rodriguez R.N.)203 (Given - Provider: Bebo Moctezuma R.N.) 0131 (Given - Provider: Bebo Moctezuma RYvonneNYvonne)0748 (Given - Provider: Debbie Jacobo)1405 (Given - Provider: Nelsy Brown RYvonneNYvonne)1847 (Given - Provider: Rashmi Snow RYvonneNYvonne - Comment: Patient discharging) 50 mg, oral, [...]
--- OUTSIDE RECORDS SUMMARY | 2022-01-18 13:31 | XMS_ITS | Encounter Summary ---
:1950 Author Organization [facility] Address [address] [place] [address] Care Team Providers Name Role Phone Unavailable Primary Care Provider Unavailable Encounter Details Date Type Department Care Team Description 01/30/2016 Hospital Encounter HX NO MAPPING [facility].D[facility] 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 documented in this encounter Results CT Abdomen Pelvis with IV Contrast (01/30/2016 9:17 AM CDT) Anatomical Region Laterality Modality Abdomen, Pelvis N/A Computed Tomography Specimen (Source) Anatomical Collection Method Collection Time Re ceived Time Location / / Volume Laterality 01/30/2016 9:17 AM CDT Addenda Addendum by Provider, Leydi Awan 01/30/2016 9:17 AM CDT RAD^^^OW CT Abdomen Pelvis w ??contrast 01/30/2016 09:17:00 Impressions 01/30/2016 1:05 PM CDT 1. Mild thickening of the mid and distal descending colon which could be seen with colitis. 2. Additional findings, including 8 mm c yst in the uncinate process of the pancreas. Follow-up CT or MRI in 2-4 years recommended. FINDINGS: Trace fluid in the pelvis. Mil d thickening of the mid and distal descending colon. This could be n ormal or could represent a mild nonspecific colitis. Infection is a common consideration. No diverticulitis. No bowel obstruction. Th e appendix is not seen; no secondary findings of inflammatory rm e in the right lower quadrant. 8 mm cyst in the uncinate process of guerrero creas (consider series 2, image 34). Small presumed right renal cy st. Hypodensities in the liver; in the absence of known malignanc y, these are probably benign. Vague geographic density in the lateral and posterior wall of the abdomen bilaterally is of uncertain but doubtful significance. Slight atelectasis in the lower lungs. M oderate degenerative change in the lumbar spine. Virtual radiologic report reviewed. Narrative 01/30/2016 1:05 PM CDT EXAM: CT Abdomen/Pelvis w/ contrast INDICATION: Abdominal or pelvic pain (LL Q pain,rectal bleeding,possible diverticulitis) COMPARISON: No prior for comparison. Procedure Note Juan Infante M.D. / ProviderHanane M.D. - 10/14/2016 EXAM: CT Abdomen/Pelvis w/ contrast INDICATION: Abdominal or pelvic pain (LL Q pain,rectal bleeding,possible diverticulitis) COMPARISON: No prior for comparison. IMPRESSION: 1. Mild thickening of the mid and distal descending colon which could be seen with colitis. 2. Additional findings, including 8 mm c yst in the uncinate process of the pancreas. Follow-up CT or MRI in 2-4 years recommended. FINDINGS: Trace fluid in the pelvis. Mil d thickening of the mid and distal descending colon. This could be n ormal or could represent a mild nonspecific colitis. Infection is a common consideration. No diverticulitis. No bowel obstruction. Th e appendix is not seen; no secondary findings of inflammatory rm e in the right lower quadrant. 8 mm cyst in the uncinate process of guerrero creas (consider series 2, image 34). Small presumed right renal cy st. Hypodensities in the liver; in the absence of known malignanc y, these are probably benign. Vague geographic density in the lateral and posterior wall of the abdomen bilaterally is of uncertain but doubtful significance. Slight atelectasis in the lower lungs. M oderate degenerative change in the lumbar spine. Virtual radiologic report reviewed. Lilibeth Morales R.T.(R)(CT), R.T.(R) IMG CT PROCEDURES documented in this encounter Visit Diagnoses Not on filedocumented in this encounter Additional Health Concerns Assessment Noted Time PHQ-9 Depression Total Score: 2 02/19/2014 2:58 PM CDT documented as of this encounter
--- OUTSIDE RECORDS SUMMARY | 2022-01-18 13:31 | XMS_ITS | Encounter Summary ---
:1950 Author Organization [facility] Address [address] [place] [address] Care Team Providers Name Role Phone Unavailable Primary Care Provider Unavailable Encounter Details Date Type Department Care Team Description 02/19/2014 Hospital Encounter HX [facility] INTERNMED Mihaela Quintero M.D. 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 - 02/19/2014 2:49 PM CDT [id number] CHIEF COMPLAINT/REASON FOR VISIT A 63-year-old patient of Dr. Stein seen for left ear pain for the last 2 weeks. She did have a upper respiratory infection with sinus drainage and pain especially in the left. She has not had any fevers, shortness of breath or abdominal pain. She has gotten these in the past. She also of note has a thyroid nodule which has been evaluated previously. MEDICATIONS Dicyclomine 10 mg 2 tablets 3 times daily. Multivitamin daily. Zoloft 100 mg 2 tablets daily. Simvastatin 20 mg at night. Starting today Zithromax 2 for 1 day and then 1 daily for the next 4 days. ALLERGIES No known drug allergies. VITAL SIGNS Blood pressure is 110/70, pulse is 64. Weight is 74.3 kg. PHYSICAL EXAMINATION GENERAL: Middle-aged pleasant woman, in no apparent distress. EYES: Pupils are equal. ENT: TMs pearly white on the right. Left is erythematous. She does have some cerumen on that side aswell. Nose and mouth without lesions. NECK: Supple. Trachea is midline. Thyroid is palpable at 1-1/2 times normal. The dominant nodule on the left is not palpable. There is no cervical or supraclavicular adenopathy. LUNGS: Clear to auscultation. No crackles or wheezes. CARDIOVASCULAR: Regular rate and rhythm. Normal S1, S2. No S3, S4. No murmurs. IMPRESSION/REPORT/PLAN Upper respiratory infection with pain on the left side. We did discuss cerumen removal. She will getsome murine ear drops for that. She will also use a Z-Don which she has tolerated in the past. She will follow up as scheduled or earlier if needed. Pineda Quintero M.D./oscar Electronically Signed By: PINEDA QUINTERO MD On: 02/20/2014 11:34 AM Source: [facility] MHSDOLBEYNONRADSYS Document Id: [id number] documented in this encounter Miscellaneous Notes Miscellaneous - Pineda Quintero M.D. - 02/19/2014 3:13 PM CDT Ambulatory Patient Summary [facility] [address] [place] [id number] Visit Information Name: YARELIS MORENO [facility] Number: [id number] Current Date: 02/19/2014 15:13:09 Physicians Attending Provider: PINEDA QUINTERO MD Primary Care Provider: LIBBY STEIN MD TIFFANIEARMONDYL [...] Take Indications/Special Instructions/Comments/Notes for Patient Medication Changes/Routing azithromycin (Zithromax Z-Don 250 mg oral tablet) 2 tablets on day 1, then 1 tablet on days 2-5, Oral, as directed x 5 day(s) New Routed to [address] [address] dicyclomine (dicyclomine 10 mg oral capsule) 2 [...] the Following Medications: Medication list as of 02-19-14 15:13 Attention: If you have any medications at [...] Electronically Signed By: PINEDA QUINTERO MD Signed On:19-FEB-2014 15:12:56 Your Allergies & Intolerances Substance Reaction Symptoms Category Comments No Known Allergies Your Problem List Problem Status Onset Comments Irritable bowel syndrome (IBS) Active Cervical Spondylosis without Myelopathy Active Hyperlipidemia Active Dysthymic Disorder (300.4) Active Tinnitus, Unspecified Active Seborrheic dermatitis NOS Active Hyperplastic polyp Active Osteopenia* Active Goiter Multinodular Nontoxic Active Cold Common Active Your Upcoming Appointments Date Time Location Provider 03/09/2014 10:40 [facility] Juan Gant MD 03/24/2014 09:10 [facility] Libby Laboy MD 03/24/2014 10:30 [facility] Room 1 Attention: Contact your local Clinic if further appointment detail needed. Your Goals/Additional instructions: Source: [facility] POWERCHART Document Id: [id number] Miscellaneous - Pineda Quintero M.D. - 02/19/2014 3:13 PM CDT Ambulatory Discharge Medication List [facility] [address] [place] [id number] Visit Information Name: YARELIS MORENO [facility] Number: [id number] Visit Date: 02/19/2014 15:13:08 Attending Provider: PINEDA QUINTERO MD Primary Care [...] Take Indications/Special Instructions/Comments/Notes for Patient Medication Changes/Routing azithromycin (Zithromax Z-Don 250 mg oral tablet) 2 tablets on day 1, then 1 tablet on days 2-5, Oral, as directed x 5 day(s) New Routed to [address] [address] dicyclomine (dicyclomine 10 mg oral capsule) 2 [...] the Following Medications: Medication list as of 02-19-14 15:13 Attention: If you have any medications at [...] Electronically Signed By: PINEDA QUINTERO MD Signed On:19-FEB-2014 15:12:56 Additional Information: Yes - . Source: [facility] Document Id: [id number] Miscellaneous - Elly Vegas, L.P.N. - 02/19/2014 2:58 PM CDT PHQ-9 PHQ-9 Entered On: 02/19/2014 14:59 CDT Performed On: 02/19/2014 14:58 CDT by ELLY EVGAS PHQ-9 Little interest or pleasure in doing things : Not at all Feeling down, depressed, or hopeless : Not at all Trouble falling or staying asleep, or sleeping too much : Several days Feeling tired or having little energy : Several days Poor appetite or overeating : Not at all Feeling bad about yourself or that you are a failure : Not at all Trouble concentrating on things : Not at all Moving or speaking slowly; restless or fidgety : Not at all Thoughts that you would be better off /hurting self : Not at all PHQ-9 Calculated Score : 2 Problems make work, home, or dealing with others : Somewhat difficult ELLY VEGAS - 02/19/2014 14:58 CDT Source: [facility] Health Benefits Direct Document Id: [id number] CDT!13 Miscellaneous - Elly Vegas L.P.N. - 02/19/2014 2:55 PM CDT Adult Hebrew Teacher Intake/History Adult Hebrew Teacher Intake/History Entered On: 02/19/2014 14:57 CDT Performed On: 02/19/2014 14:55 CDT by ELLY VEGAS Intake Chief Complaint : c/o left ear pain x 1 day Temperature Core : 36.6 DegC(Converted to: 97.9 DegF) Peripheral Pulse Rate : 64 /min Respiratory Rate : 16 /min Heart Rhythm : Regular Systolic Blood Pressure : 110 mmHg Diastolic Blood Pressure : 70 mmHg NIBP Mean : 83 mmHg BP Location : Right upper extremity Blood Pressure Cuff Size : Regular Height : 168 cm(Converted to: 5 ft 6 inch(es), 66 inch(es)) Actual Weight : 74.3 kg(Converted to: 163 lb 13 oz) Dosing Weight Clinic : 74.3 kg Clinic BSA : 1.86 Body Mass Index : 26.33 kg/m2 ELLY VEGAS - 02/19/2014 14:55 CDT General Info Languages : [place] Islander Is Patient Female and 13-50 no hysterectomy : No ELLY VEGAS - 02/19/2014 14:55 CDT Subjective Pain Symptoms : Yes ELLY VEGAS - 02/19/2014 14:55 CDT Pain Pain Assessment Grid Pain 1 Location : Ear (Comment: left [ELLY VEGAS - 02/19/2014 14:55 CDT] ) ELLY VEGAS - 02/19/2014 14:55 CDT Dependent Habits Tobacco Use/Currently Using : No Exposure to Tobacco Smoke : Other: former Smoking Status : Former smoker ELLY VEGAS - 02/19/2014 14:55 CDT Source: [facility] Document Id: [id number] CDT!30 documented in this encounter Plan of Treatment Not on filedocumented as of this encounter Visit Diagnoses Not on filedocumented in this encounter Additional Health Concerns Assessment Noted Time PHQ-9 Depression Total Score: 2 02/19/2014 2:58 PM CDT documented as of this encounter
--- OUTSIDE RECORDS SUMMARY | 2022-01-18 13:31 | XMS_ITS | Encounter Summary ---
:1950 Author Organization [facility] Address [address] [place] [address] Care Team Providers Name Role Phone Unavailable Primary Care Provider Unavailable Encounter Details Date Type Department Care Team Description 06/30/2013 Hospital Encounter HX [facility] Maynor Kee M.D. 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 - 07/01/2013 8:25 AM CST Results Notification Document Contains Addenda Addendum by BHAVNA SHEARER on 01 July 2013 09:45:47 [employer] LEAD [employer]NER Patient notified. From: TANYA MURRAY MD To: MAURICIO Murray Nurse; Sent: 07/01/2013 08:25:21 [employer] LEAD BURNER ! Show up: 07/01/2013 14:25:21 [facility] Subject: Results Notification Actions: Notify patient of results Reminder Comments: No DVT or blood clot. Results: Date Result Type Result Name 06/30/2013 16:28 Radiology US Venous Doppler Lower Ext Right Source: [facility] POWERCHART Document Id: [id number] Electronically signed by Conversion, [facility] Flour Mixer Helper [id number] at 11/07/2016 8:00 AM CDT documented in this encounter Plan of Treatment Not on filedocumented as of this encounter Procedures Procedure Name Priority Date/Time Associated Diagnosis Comme nts US LOWER EXTREMITY Routine 06/30/2013 3:54 PM Res ults for this VEINS RIGHT RED LEAD BURNER procedure are i n the results section. documented in this encounter Results US Lower Extremity Veins Right (06/30/2013 3:54 PM RED LEAD BURNER) Anatomical Region Laterality Modality Lower Extremity Right Ultrasound Specimen (Source) Anatomical Collection Method Collection Time Re ceived Time Location / / Volume Laterality 06/30/2013 3:54 PM [employer] LEAD BURNER Addenda Addendum by Provider, Leydi Awan 06/30/2013 3:54 PM RED LEAD BURNER RAD^^^OW US Venous Doppler Lower Ext Right 06/30/2013 15:54:02 Impressions 06/30/2013 4:25 PM RED LEAD BURNER ??Right lower extremity is negative for deep venous thrombosis. Narrative 06/30/2013 4:25 PM RED LEAD BURNER EXAM: ??US Venous Doppler Lower Ext Righ t AGE: ??62 years old. GENDER: ??Female. INDICATION: ??RLE pain and edema, rule o ut DVT COMPARISON: ??None. FINDINGS: ??Patent right common femoral, femoral, popliteal, posterior tibial and peroneal veins. Procedure Note Tomás Miranda M.D. / Provider, Fanta diaz M.D. - 10/20/2016 EXAM: US Venous Doppler Lower Ext Right AGE: [age] years old. GENDER: Female. INDICATION: RLE pain and edema, rule out DVT COMPARISON: None. FINDINGS: Patent right common femoral, f emoral, popliteal, posterior tibial and peroneal veins. IMPRESSION: Right lower extremity is neg ative for deep venous thrombosis. Juli Fournier R.V.T., JamesMYvonneSYvonne IMG US PROCEDURES documented in this encounter Visit Diagnoses Not on filedocumented in this encounter Additional Health Concerns Assessment Noted Time PHQ-9 Depression Total Score: 3 06/30/2013 3:21 PM RED LEAD BURNER documented as of this encounter
--- OUTSIDE RECORDS SUMMARY | 2022-01-18 13:31 | XMS_ITS | Encounter Summary ---
:1950 Author Organization [facility] Address [address] [place] [address] Care Team Providers Name Role Phone Unavailable Primary Care Provider Unavailable Encounter Details Date Type Department Care Team Description 10/13/2013 Hospital Encounter HX [facility] Zoila Stein M.D. 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 - 10/13/2013 11:55 AM CDT Chief Complaint: Follow-up neck discomfort History of Present Illness: Yarelis was seen by this provider to establish care on 09/25/13. At that time she did discuss some discomfort that she can have in her neck intermittently. Because of those symptoms, she underwent a thyroid ultrasound and TSH testing. Those results are reviewed with her today. Her TSH was normal and thethyroid ultrasound showed several thyroid nodules. The radiologist recommended a follow- up U/S in 1 year to ensure stablilty. She was speaking with a woman recently and found out that that person had asimilar history and was eventually diagnosed with thyroid cancer. She would prefer to see a thyroid specialist at this time to review her U/S and determine if one of the nodules should be biopsied. She still has some discomfort in the right side of her neck from time to time. Otherwise she is doing well. Medications: Reviewed and no changes per EMR Allergies: No known drug allergies Review of Systems: She occasionally notices a strong odor to her urine. She denies dysuria or increased frequency. She does note that she probably doesn't drink enough water during the day. Vitals: Reviewed per EMR Physical Exam: General: alert, pleasant middle-aged female in no acute distress Thyroid: possible nodule in right lobe, feels slighlty enlarged, mild tenderness to palpation over right lobe Heart:RRR, normal S1 and S2 Lungs:Clear to ascultation bilaterally Extremities:No edema Impression/Report/Plan: 1.Thyroid nodules. Advised patient that the radiologist didn't recommend a biopsy, but instead recommended a follow-up U/S in one year to ensure stability of the nodules. She is uncomfortable with thisplan and is afraid that something could be missed. At this time I will refer her to Dr. Maeve simons he can examine her thyroid gland and review her ultrasound. He will then determine if a biopsy is indiciated at this time. She is comfortable with this plan. I did advise her today that her thyroid gland appears to be functioning normally with a normal TSH level. 2. Follow-up. She plans to follow-up with this provider in the fall for a routine physical. Electronically Signed By: LIBBY STEIN MD On: 10/13/2013 12:09 PM Source: [facility] POWERCHART Document Id: [id number] documented in this encounter Miscellaneous Notes Miscellaneous - Libby Stein M.D. - 10/13/2013 10:22 AM CDT Ambulatory Patient Summary [facility] [address] [place] [id number] Visit Information Name: YARELIS MORENO [facility] Number: [id number] Current Date: 10/13/2013 10:22:14 Physicians Attending Provider: LIBBY STEIN MD Primary Care Provider: LIBBY STEIN MD [...] the Following Medications: Medication list as of 10-13-13 10:22 Attention: If you have any medications at home that are not on this list, DO NOT take them until youcontact your provider for clarification. Give a copy of your medication list to your primary care provider. Update your medication list any time medications or doses are changed and carry your medication list at all times in case of emergency. Electronically Signed By: LIBBY STEIN MD Signed On:13-OCT-2013 10:22:08 Your Allergies & Intolerances Substance Reaction Symptoms [...] appointment detail needed. Your Goals/Additional instructions: Source: [facility] POWERCHART Document Id: [id number] AT Sasha - Libby Stein M.D. - 10/13/2013 10:22 AM CDT Ambulatory Discharge Medication List [address] [id number] Visit Information Name: YARELIS MORENO [facility] Number: [id number] Visit Date: 10/13/2013 10:22:13 Attending Provider: LIBBY STEIN MD Primary Care Provider: LIBBY STEIN MD [...] the Following Medications: Medication list as of 10-13-13 10:22 Attention: If you have any medications at home that are not on this list, DO NOT take them until youcontact your provider for clarification. Give a copy of your medication list to your primary care provider. Update your medication list any time medications or doses are changed and carry your medication list at all times in case of emergency. Electronically Signed By: LIBBY STEIN MD Signed On:13-OCT-2013 10:22:08 Additional Information: Source: [facility] POWERCHART Document Id: [id number] Miscellaneous - Massiel Rodrigues L.P.N. - 10/13/2013 10:06 AM CDT Adult Medical Billing Coordinator Intake/History Document Has Been Updated Adult Medical Billing Coordinator Intake/History Entered On: 10/13/2013 10:08 CDT Performed On: 10/13/2013 10:06 CDT by MASSIEL RODRIGUES Intake Chief Complaint : follow up after ultrasound MASSIEL RODRIGUES - 10/13/2013 10:06 CDT MASSIEL RODRIGUES - 10/13/2013 10:11 CDT Temperature Core : 36.8 DegC(Converted to: 98.2 DegF) Peripheral Pulse Rate : 72 /min Respiratory Rate : 20 /min Heart Rhythm : Regular Systolic Blood Pressure : 100 mmHg Diastolic Blood Pressure : 72 mmHg NIBP Mean : 81 mmHg BP Location : Right upper extremity Blood Pressure Cuff Size : Regular Actual Weight : 72.9 kg(Converted to: 160 lb 11 oz) Dosing Weight Clinic : 72.9 kg MASSIEL RODRIGUES - 10/13/2013 10:06 CDT General Info Information Given By : Patient Languages : Bruneian JOSE MASSIEL NEGRON - 10/13/2013 10:06 CDT Subjective Pain Symptoms : Yes MASSIEL RODRIGUES - 10/13/2013 10:06 CDT Pain Pain Assessment Grid Pain 1 Location : Neck FLAVIOJAMESMASSIEL - 10/13/2013 10:06 CDT Dependent Habits Tobacco Use/Currently Using : No Exposure to Tobacco Smoke : Other: former Smoking Status : Former smoker MASSIEL RODRIGUES - 10/13/2013 10:06 CDT Source: [facility] POWERCHART Document Id: [id number] CDT!3 documented in this encounter Plan of Treatment Not on filedocumented as of this encounter Visit Diagnoses Not on filedocumented in this encounter Additional Health Concerns Assessment Noted Time PHQ-9 Depression Total Score: 3 06/30/2013 3:21 PM SHOE COVERER documented as of this encounter
--- OUTSIDE RECORDS SUMMARY | 2022-01-18 13:31 | XMS_ITS | Encounter Summary ---
:1950 Author Organization [facility] Address [address] [place] [address] Care Team Providers Name Role Phone Unavailable Primary Care Provider Unavailable Encounter Details Date Type Department Care Team Description 10/22/2013 Hospital Encounter HX [facility] INTERNMED Mihaela Quintero M.D. 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 - 10/22/2013 10:29 AM CDT [id number] CHIEF COMPLAINT/REASON FOR VISIT A 63-year-old patient of Dr. Garcia here for evaluation of her multinodular goiter. She had been struggling with fatigue and actually took a fall this spring, falling to her hands. She has had some neck soreness since then. In meeting with Dr. Garcia, they did elect to do a thyroid ultrasound, as well as a TSH. The TSH was normal at 2.5. The ultrasound did demonstrate multiple cystic lesions on theright and then multiple thyroid nodules on the left, as well as 1 in the isthmus. She does have a dominant nodule measuring 9 x 8 x 4 mm. She also has a family history of thyroid cancer in her father. She is otherwise without fevers, chills, cough, shortness of breath, or chest pain. MEDICATIONS Dicyclomine 10 mg 2 tablets 3 times daily. Vitamin D daily. Zoloft 100 mg 2 tablets daily. Simvastatin 20 mg at night. ALLERGIES No known drug allergies. SYSTEMS REVIEW Does not drink or smoke. No fevers, chills, cough, shortness of breath, or chest pain. PAST MEDICAL/SURGICAL HISTORY 1. Multinodular goiter. 2. Irritable bowel syndrome 3. Hyperlipidemia. 4. Dysthymia. SOCIAL HISTORY Lives in [place]. FAMILY HISTORY Notable for father with thyroid cancer. VITAL SIGNS Blood pressure is 90/60, pulse is 72, weight is 72.5 kg. PHYSICAL EXAMINATION GENERAL: Middle-aged pleasant woman, no apparent distress. EYES: Pupils are equal. ENT: TMs pearly white. Nose and mouth without lesions. NECK: Supple. Trachea is midline. Thyroid is palpable at 1-1/2 times normal. The dominant nodule on the left is not discretely palpable. There is no cervical or supraclavicular adenopathy. LUNGS: Clear to auscultation. No crackles or wheezes. CARDIAC: Regular rate and rhythm. Normal S1, S2. No S3, S4, or murmurs. IMPRESSION/REPORT/PLAN Multinodular goiter with normal thyroid function. We did review normal thyroid function, as well as the significance of multinodular goiter. Given her family history of thyroid cancer, there is a 1% risk of malignancy in that dominant nodule. We did discuss risk and benefit of fine-needle aspiration including risk of bleeding or infection and the indication of ruling out a malignancy. She is aware ofthe possible diagnosis including benign versus malignant versus nondiagnostic. She also is aware of the risk for bleeding or infection. We will go ahead and arrange for fine-needle aspiration of the dominant nodule on the left. She does give verbal consent. We will go ahead and have her follow up in 6 months as well. Pineda Quintero M.D./oscar cc: Vonnie Garcia M.D. Electronically Signed By: PINEDA QUINTERO MD On: 10/22/2013 12:31 PM Source: [facility] MHSDOLBEYNONRADSYS Document Id: [id number] documented in this encounter Miscellaneous Notes Miscellaneous - Elly Vegas, L.P.N. - 10/22/2013 10:42 AM CDT Adult Gold Beater Intake/History Adult Gold Beater Intake/History Entered On: 10/22/2013 10:44 CDT Performed On: 10/22/2013 10:42 CDT by ELLY VEGAS Intake Chief Complaint : referral from Dr Garcia for thyroid nodules Temperature Core : 37 DegC(Converted to: 98.6 DegF) Peripheral Pulse Rate : 72 /min Respiratory Rate : 16 /min Heart Rhythm : Regular Systolic Blood Pressure : 90 mmHg (LOW) Diastolic Blood Pressure : 60 mmHg NIBP Mean : 70 mmHg BP Location : Right upper extremity Blood Pressure Cuff Size : Regular Actual Weight : 72.5 kg(Converted to: 159 lb 13 oz) Dosing Weight Clinic : 72.5 kg ELLY VEGAS - 10/22/2013 10:42 CDT General Info Languages : Kiswahili ELLY VEGAS - 10/22/2013 10:42 CDT Subjective Pain Symptoms : No ELLY VEGAS - 10/22/2013 10:42 CDT Dependent Habits Tobacco Use/Currently Using : No Exposure to Tobacco Smoke : Other: former Smoking Status : Former smoker ELLY VEGAS - 10/22/2013 10:42 CDT Source: [facility] POWERCHART Document Id: [id number] CDT!22 documented in this encounter Plan of Treatment Not on filedocumented as of this encounter Visit Diagnoses Not on filedocumented in this encounter Additional Health Concerns Assessment Noted Time PHQ-9 Depression Total Score: 3 06/30/2013 3:21 PM RIBBON TIER documented as of this encounter
--- OUTSIDE RECORDS SUMMARY | 2022-01-18 13:31 | XMS_ITS | Encounter Summary ---
:1950 Author Organization [facility] Address [address] [place] [address] Care Team Providers Name Role Phone Unavailable Primary Care Provider Unavailable Encounter Details Date Type Department Care Team Description 06/30/2013 Hospital Encounter HX [facility] INTERNMED Maynor Murray M.D. 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 - 06/30/2013 3:07 PM CST [id number] CHIEF COMPLAINT / REASON FOR VISIT Left ankle pain and swelling and establish care. HISTORY OF PRESENT ILLNESS Ms. Yarelis Painting is a very pleasant 62-year-old female with a history of depression, irritable bowel syndrome and a family medical history of colon cancer who presents to the [facility] today to establish care and for concerns over recent right ankle pain and swelling after a recent fall while [place] cruise [place]. The patient reported that about 10 days ago she started developing pain and swelling in her right ankle. The patient reported that prior to that she fell on June 13, 2013, while on a [place] ship in the [place] when she landed on her right leg and ankle. The patient denies any history of blood clots in the past. The patient reports that she has been treating her pain with requ-uum-zqlsgzn Tylenol and ibuprofen with adequate relief of pain symptoms, although the patient is concerned about a fracture and/or blood clots in the right leg. MEDICATIONS Reviewed per electronic medical record. No changes made today. ALLERGIES No known drug allergies. PAST MEDICAL / SURGICAL HISTORY Irritable bowel syndrome. Depression. FAMILY HISTORY Father had a history of thyroid cancer and bladder cancer, as well as heart disease. Brother from colon cancer at age 61. SOCIAL HISTORY No tobacco or alcohol use. The patient moved to [place] 7 years ago. SYSTEMS REVIEW The patient's review of systems today is notable for recent fall while on a cruise ship on June 13, 2013, in the [facility] with resulting left ankle pain and swelling. Otherwise, the review of systems today is negative. PHYSICAL EXAMINATION VITAL SIGNS: Temperature 36 degrees, blood pressure 110/80, pulse 68, respirations 16 and weight 72.3 kg. GENERAL APPEARANCE: No acute distress. HEENT: Normocephalic, atraumatic. Extraocular movements intact. NECK: Supple. CARDIAC EXAM: Regular rate and rhythm. S1 and S2. PULMONARY: Clear to auscultation bilaterally. ABDOMEN: Soft, nontender. Positive bowel sounds throughout. No hepatosplenomegaly. EXTREMITIES: No clubbing or cyanosis. There is some trace right ankle edema present. MUSCULOSKELETAL: The patient has pain at the right ankle joint with tenderness to palpation over themedial aspect of the right ankle joint. The patient also has pain with range of motion movements of the right ankle joint, especially with inversion. NEUROLOGIC: Alert and oriented x3. PSYCH: Normal affect. X-ray ordered today of the right ankle to rule out fracture; pending at time of dictation. Ultrasound of the right lower extremity to rule out DVT is pending at time of dictation. IMPRESSION / REPORT / PLAN 1. Establish care. 2. Right ankle pain. 3. Right lower extremity swelling and edema. 4. Family history of colon cancer. PLAN: Ms. Yarelis Painting presents to the Internal Medicine Clinic today to establish care and for concerns over recent right ankle pain and swelling. We will plan to check ultrasound to rule out DVT today given the right lower extremity swelling and edema. I will also check x-ray today to rule out fracture of the right ankle today. The patient recent fell on June 13, 2013, while on a cruise ship in the [place]. Regarding the patient's history of positive family history of colon cancer, review of the patient's records today show that the patient is not due for another screening surveillance colonoscopy until January 2016. I also instructed the patient to continue icing the right ankle joint, as well as continue plyl-won-eeovyxc ibuprofen and Tylenol for pain relief. Followup plan: The patient was instructed to return to the Internal Medicine Clinic for follow up in1 month. Shakila Murray M.D./liliana Electronically Signed By: SHAKIAL MURRAY MD On: 07/01/2013 12:19 PM Source: [facility] MHSDOLBEYNONRADSYS Document Id: [id number] WINDING MACHINE OPERATOR documented in this encounter Miscellaneous Notes Miscellaneous - Shakila Murray M.D. - 07/01/2013 8:24 AM CST Results Notification Document Contains Addenda Addendum by BHAVNA SHEARER on 01 July 2013 09:45:37 WIRE WINDING MACHINE OPERATOR Patient notified. From: SHAKILA MURRAY MD To: MAURICIO Murray Nurse; Sent: 07/01/2013 08:24:54 WIRE WINDING MACHINE OPERATOR ! 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 No acute fracture. Results: Date Result Type Result Name 06/30/2013 16:39 Radiology XR Ankle Right 3 or more views Source: [facility] POWERCHART Document Id: [id number] Electronically signed by [facility]ie [facility] Buckle Gluer [id number] at 11/07/2016 8:00 AM CDT Miscellaneous - Bhavna Shearer LYvonneP.N. - 06/30/2013 3:21 PM CST PHQ-9 PHQ-9 Entered On: 06/30/2013 15:22 WIRE WINDING MACHINE OPERATOR Performed On: 06/30/2013 15:21 WIRE WINDING MACHINE OPERATOR by BHAVNA SHEARER PHQ-9 Little interest or pleasure in doing things : Not at all Feeling down, depressed, or hopeless : Several days Trouble falling or staying asleep, or sleeping [...] Not at all PHQ-9 Calculated Score : 3 BHAVNA SHEARER - 06/30/2013 15:21 WIRE WINDING MACHINE OPERATOR Source: [facility] Document Id: [id number] WIRE WINDING MACHINE OPERATOR!12 WINDING MACHINE OPERATOR Miscellaneous - Bhavna Shearer, L.P.N. - 06/30/2013 3:20 PM CST Health Assessment Health Assessment Entered On: 06/30/2013 15:21 WIRE WINDING MACHINE OPERATOR Performed On: 06/30/2013 15:20 WIRE WINDING MACHINE OPERATOR by BHAVNA SHEARER Health Assessment Complete Health Assessment Complete or Modified : Annual Health Assessment Annual Health Assessment Completed : Yes BHAVNA SHEARER - 06/30/2013 15:20 WIRE WINDING MACHINE OPERATOR Nutrition Nutrition Risk Factors by History Adult : None BHAVNA SHEARER - 06/30/2013 15:20 WIRE WINDING MACHINE OPERATOR Functional Current Daily Living Assistance : None BHAVNA SHEARER - 06/30/2013 15:20 WIRE WINDING MACHINE OPERATOR Dependent Habits Tobacco Use/Currently Using : No Smoking Status : Never smoker BHAVNA SHEARER - 06/30/2013 15:20 WIRE WINDING MACHINE OPERATOR Psychosocial Domestic Abuse Concerns : None BHAVNA SHEARER - 06/30/2013 15:20 WIRE WINDING MACHINE OPERATOR Advance Directive Advanced Directives : Yes BHAVNA SHEARER - 06/30/2013 15:20 WIRE WINDING MACHINE OPERATOR Educ Needs Learning Style Preference Adult Grid Patient : Printed materials Family : None BHAVNA SHEARER - 06/30/2013 15:20 WIRE WINDING MACHINE OPERATOR Source: [facility] Document Id: [id number] WIRE WINDING MACHINE OPERATOR!19 WINDING MACHINE OPERATOR Miscellaneous - Bhavna Shearer L.PYvonneNYvonne - 06/30/2013 3:16 PM CST Adult Elevator Repairer Intake/History Adult Elevator Repairer Intake/History Entered On: 06/30/2013 15:20 WIRE WINDING MACHINE OPERATOR Performed On: 06/30/2013 15:16 WIRE WINDING MACHINE OPERATOR by BHAVNA SHEARER Intake Chief Complaint : Sore spot on Right ankle, swelling. Also having a tenderness in groin on the same side. l Temperature Oral : 36.0 DegC(Converted to: 96.8 DegF) Peripheral Pulse Rate : 68 /min Respiratory Rate : 16 /min Systolic Blood Pressure : 110 mmHg Diastolic Blood Pressure : 80 mmHg NIBP Mean : 90 mmHg BP Location : Right upper extremity Blood Pressure Cuff Size : Regular Actual Weight : 72.3 kg(Converted to: 159 lb 6 oz) Weight Source : Standing scale Dosing Weight Clinic : 72.3 kg BHAVNA SHEARER - 06/30/2013 15:16 WIRE WINDING MACHINE OPERATOR General Info Information Given By : Patient Preferred Communication Mode : Verbal Languages : Azerbaijani BHAVNA SHEARER - 06/30/2013 15:16 WIRE WINDING MACHINE OPERATOR Subjective Pain Symptoms : Yes BHAVNA SHEARER - 06/30/2013 15:16 WIRE WINDING MACHINE OPERATOR Pain Pain Assessment Grid Pain 1 Location : Other: Tender right ankle and groin BHAVNA SHEARER - 06/30/2013 15:16 WIRE WINDING MACHINE OPERATOR Dependent Habits Tobacco Use/Currently Using : No Smoking Status : Never smoker BHAVNA SHEARER - 06/30/2013 15:16 WIRE WINDING MACHINE OPERATOR Source: [facility] Document Id: [id number] WIRE WINDING MACHINE OPERATOR!27 WINDING MACHINE OPERATOR documented in this encounter Plan of Treatment Not on filedocumented as of this encounter Procedures Procedure Name Priority Date/Time Associated Diagnosis Comme nts DX ANKLE RIGHT 3+ Routine 06/30/2013 4:16 PM Resu lts for this VIEWS WIRE WINDING MACHINE OPERATOR procedure are i n the results section. documented in this encounter Results DX Ankle Right 3+ Views (06/30/2013 4:16 PM WIRE WINDING MACHINE OPERATOR) Anatomical Region Laterality Modality Lower Extremity, Ankle Right Radiographic Imag ing Specimen (Source) Anatomical Collection Method Collection Time Re ceived Time Location / / Volume Laterality 06/30/2013 4:16 PM WIRE WINDING MACHINE OPERATOR Addenda Addendum by Provider, Leydi Awan 06/30/2013 4:16 PM WIRE WINDING MACHINE OPERATOR RAD^^^OW XR Ankle Right 3 or more views 06/30/2013 16:16:14 Impressions 06/30/2013 4:36 PM WIRE WINDING MACHINE OPERATOR ??Please see above dictation. Narrative 06/30/2013 4:36 PM WIRE WINDING MACHINE OPERATOR EXAM: ??XR Ankle Right 3 or more views AGE: ??62 years old. GENDER: ??Female. INDICATION: ??Right ankle pain and edema , recent fall, rule out fractures. COMPARISON: ??10/31/2011. FINDINGS: ??Small amount soft tissue swe lling about the right lateral malleolus. Tiny right calcaneal and Achilles heel s purs. No appreciable acute osseous injury of right ankle. If pain persists consider followup radio graphs in 7-10 days to exclude interval healing of occult osseo us injury. Procedure Note Tomás Miranda M.D. / Provider, Fanta diaz M.D. - 10/20/2016 EXAM: XR Ankle Right 3 or more views AGE: [age] years old. GENDER: Female. INDICATION: Right ankle pain and edema, recent fall, rule out fractures. COMPARISON: 10/31/2011. FINDINGS: Small amount soft tissue swell ing about the right lateral malleolus. Tiny right calcaneal and Achilles heel s purs. No appreciable acute osseous injury of right ankle. If pain persists consider followup radio graphs in 7-10 days to exclude interval healing of occult osseo us injury. IMPRESSION: Please see above dictation. Loan Martinez(Mike) IMG DIAGNOSTIC IMAGING PROC EDURES documented in this encounter Visit Diagnoses Not on filedocumented in this encounter Additional Health Concerns Assessment Noted Time PHQ-9 Depression Total Score: 3 06/30/2013 3:21 PM WIRE WINDING MACHINE OPERATOR documented as of this encounter
--- OUTSIDE RECORDS SUMMARY | 2022-01-18 13:31 | XMS_ITS | Encounter Summary ---
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
--- OUTSIDE RECORDS SUMMARY | 2022-01-18 13:32 | XMS_ITS | Encounter Summary ---
:1950 Author Organization [facility] Address [address] [place] [address] Care Team Providers Name Role Phone Unavailable Primary Care Provider Unavailable Encounter Details Date Type Department Care Team Description 10/09/2000 Hospital Encounter HX [facility] Bruna Celestin M.D. 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
--- NOTE | 2022-01-18 13:45 | MR_ITS ---
[facility] [address] [facility] [address] Phone:?[phone] Fax:?[phone] Referring Physician Information: Esme Chi M.D. [address] [place] [address] Phone:?[phone] Fax:?[phone] Patient:Torrie Painting D.O.B:?1950 Sex:?Female Phone:?[phone] [facility] MRN:?[id number] Exam Date:?01/18/2022 ? EXAM: MRI EXAMINATION OF THE RIGHT HIP CLINICAL INFORMATION: Female, 71 years old, with chronic pain INDICATION: Chronic pain, evaluate for internal derangement PRIOR SURGERY: None reported. PLAIN FILMS: None available. COMPARISONS: No prior MRIs available. TECHNICAL INFORMATION: Using a 1.5T MR scanner and a localizing surface coil: coronals: PD, T2 sagittals: PD, T2 oblique axials: PD straight axials: T2FS coronals: T1, STIR of pelvis and hips SEDATION: None CONTRAST: None FINDINGS: Hip joint: Moderate size joint effusion with synovitis. Relatively broad-based full- thickness and near full-thickness chondral loss along the superior and posterosuperior femoroacetabular articulation centrally (sagittal series 8 image 23). Additional grade 3 thinning anterosuperiorly. No intra-articular bodies. Labrum: Degenerative linear tearing along the anterior labrum (axial oblique series 6 image 19-18). Intrasubstance degeneration of low-grade undersurface fraying anterosuperiorly. No evidence of paralabral ganglion cyst. Proximal femur: No femoral occult fracture, stress injury, marrow edema or osteonecrosis. No convincing femoral cam morphology. Mild circumferential femoral head/neck osteophytic spurring. Acetabulum: Subchondral cystic change or periacetabular ganglion along the posterior superior acetabulum with mild marrow edema Coverage: Right lateral center edge (CE) angle measures approximately 28? (normal 25?-39?), midline coronal series 4 image 12, corrected for pelvic obliquity. Ligamentum teres: Ligamentum teres is intact and unremarkable. Pelvis osseous structures: Sacral ala and sacroiliac joints: No stress/insufficiency fractures or marrow edema/pathology. No demonstrable sacroiliitis. Pubic rami and pubic symphysis: No stress/insufficiency fractures or marrow edema/pathology. Normal alignment without hypertrophy or evidence of ongoing osteitis pubis. Myotendinous structures: Gluteus abductors: No convincing insertional tendinopathy or tear of gluteus minimus or medius. Adductors: Mild intramuscular edema within the proximal adductor musculature (axial series 7 image 23). Hamstrings: Intact semimembranosus, semitendinosus and biceps femoris tendons, without tendinopathy or tear. Flexors: Intact iliopsoas and rectus femoris, without strain/tear. External rotators: Intact, without demonstrable ischiofemoral impingement. Gluteal aponeurotic fascia and IT band: Unremarkable. Bursae: No demonstrable trochanteric, iliopsoas, or iliopectineal bursitis. Intrapelvic contents: Free fluid: No free fluid seen within the pelvis. Pelvic viscera: No discrete intrapelvic mass is identified. Lymph nodes: No lymphadenopathy by MRI size criteria. Neurovascular structures: No discrete cyst, mass or other compression upon the portions visualized of sciatic or femoral nerves. Lumbar spine: Disc degeneration and loss of the lower lumbar spine most advanced at L4-5 with prominent osteophytic spurring. Other: Susceptibility artifact related to contralateral left total hip arthroplasty, without evidence of complication on single frontal view. IMPRESSION: 1. Right hip degenerative change as described above with full-thickness and near full-thickness chondral loss, osteophytic spurring, and marrow edema. Moderate size joint effusion with synovitis. 2. No stress/occult fracture or other marrow edema/pathology. No evidence for avascular necrosis. 3. Degenerative linear tearing along the anterior labrum. Intrasubstance degeneration and low-grade undersurface fraying anterosuperiorly. 4. Mild intramuscular edema within the proximal adductor musculature, possibly reactive versus very low-grade muscle strain. 5. Intact abductor, iliopsoas, common hamstrings, and rectus femoris tendons. KME Electronically signed on 01/19/2022 11:05:00 AM by Dianne Connor M.D.
== END 2022-01-18 13:25 | disposition home or self-care (01) ==
LOC: MRI 13:26
PROVIDERS: PCP Internal Medicine; Visit Provider Internal Medicine
DX: M25.551 Pain in right hip (principal); M25.451 Effusion, right hip; S73.101A Unspecified sprain of right hip, initial encounter
CPT/HCPCS: 73721

== ENCOUNTER 2022-06-24 12:40 | Outpatient (CLI) | payer MEDICARE, OTHER, SELFPAY ==
--- OUTSIDE RECORDS SUMMARY | 2022-06-24 12:43 | XMS_ITS | Continuity of Care Document ---
:1950 Author Organization [facility] Address [address] [address] [place] [address] Phone Care Team Providers Name Role Phone Malinda Aj MD Unavailable Unavailable Allergies, Adverse Reactions, Alerts Substance Reaction Status Criticality No Known Allergies Active No Informatio n Medications Medication Instructions Dosage Effective Dates Status Comment s (start - stop) Linzess 72 mcg take 1 capsule by oral 72 MCG - Active capsule route every day on an empty stomach at least 30 minutes before 1st meal of the day Zoloft 100 mg tablet take 2 tablet by oral 200 MG - A ctive route every day lorazepam 0.5 mg take 1 Tablet by oral - Activ e tablet route 2 times every day Procedures Procedure Date Offic/outpt E&m [facility] [place] Advance Directives Directive Yes / No Effective Date File Name No Information Encounters Encounter Practice Location Reason(s) Diagnoses Date Provider Provide rs Description For Visit Copied on Encounter ELISA [place] No Information [facility] Christine. Suzette MEDEROS, [address] [address], [address], [address], [place], [place], [place], [place], [id number], [address], [place]. [place] tel:[phone] tel:[phone] Offic/outpt ELISA [facility] Irritable Apr- No Referr ing E&m [facility] Symptoms bowel syndrome 0- Informatio n Provider: [place] MEDEROS, or with [address] Concerns constipationDi Alon [address], (chief etary , [address] complaint) counseling and , , [place], [facility] , [id number], [place], [address]. [place] blood-pressure tel:[phone] tel: reading, w/o [phone] diagnosis of htn [facility] No Information [facility], [address] [address], [place] [address], [place], [place], [place], [id number], [place], [place] [id number], tel: [place]. [phone] tel:[phone] Family History Family Member Type Diagnosis Age At Onset Mother Problem (finding) COPD Father Problem (finding) malignant neoplasm of urinary bladder Father Problem (finding) Cardiovascular disease Father Problem (finding) coronary arteriosclerosis Brother Problem (finding) Brother Problem (finding) cancer of colon Father Problem (finding) prostate cancer Father Problem (finding) alzheimer's disease Brother Problem (finding) Alive and well Daughter Problem (finding) Alive and well Immunizations Vaccine Date Status Comments SARS-COV-2 (COVID-19) vaccine, administered N ote: [facility]IC bi-directional mRNA, spike protein, LNP, interf linda ; Source: Other preservative free, 100 mcg/0.5mL Registry dose SARS-COV-2 (COVID-19) vaccine, administered N ote: [facility]IC bi-directional mRNA, spike protein, LNP, interf linda ; Source: Other preservative free, 100 mcg/0.5mL Registry dose zoster vaccine recombinant administered Note: [facility] bi-directional interface ; Sour ce: Other Registry zoster vaccine recombinant administered Note: [facility] bi-directional interface ; Sour ce: Other Registry tetanus and diphtheria toxoids, administered Note: [facility] bi-directional adsorbed, preservative free, for interface ; Source: Other adult use (2 Lf of tetanus toxoid Registry and 2 Lf of diphtheria toxoid) Pneumovax 23 administered Note: [facility] bi-di rectional interface ; Sour ce: Other Registry influenza, seasonal vaccine, administered Not e: [facility] bi-directional quadrivalent, adjuvanted, .5mL i nterface ; Source: Other dose, preservative free Registry tetanus and diphtheria toxoids, administered Note: [facility] bi-directional adsorbed, preservative free, for interface ; Source: Other adult use (5 Lf of tetanus toxoid Registry and 2 Lf of diphtheria toxoid) tetanus and diphtheria toxoids, administered Note: [facility] bi-directional adsorbed, preservative free, for interface ; Source: Other adult use (5 Lf of tetanus toxoid Registry and 2 Lf of diphtheria toxoid) Seasonal trivalent influenza administered Not e: [facility] bi-directional vaccine, adjuvanted, preservative interface ; Source: Other free Registry meningococcal oligosaccharide administered No te: [facility] bi-directional (groups A, C, Y and W-135) inter face ; Source: Other diphtheria toxoid conjugate Faiza stry vaccine (MCV4O) meningococcal B vaccine, administered Note: M IIC bi-directional recombinant, OMV, adjuvanted int erface ; Source: Other Registry meningococcal polysaccharide administered Not e: [facility] bi-directional (groups A, C, Y and W-135) inter face ; Source: Other diphtheria toxoid conjugate Faiza stry vaccine (MCV4P) meningococcal B vaccine, administered Note: M IIC bi-directional recombinant, OMV, adjuvanted int erface ; Source: Other Registry Haemophilus influenzae type b administered No te: [facility] bi-directional vaccine, PRP-OMP conjugate inter face ; Source: Other Registry Seasonal trivalent influenza administered Not e: [facility] bi-directional vaccine, adjuvanted, preservative interface ; Source: Other free Registry Seasonal trivalent influenza administered Not e: [facility] bi-directional vaccine, adjuvanted, preservative interface ; Source: Other free Registry influenza, high dose seasonal, administered N ote: [facility] bi-directional preservative-free interface ; So urce: Other Registry Prevnar 13 administered Note: [facility] bi-di rectional interface ; Sour ce: Other Registry yellow fever vaccine administered Note: [facility] bi-directional interface ; Sour ce: Other Registry influenza, high dose seasonal, administered N ote: MI[facility] bi-directional preservative-free interface ; So urce: Other Registry typhoid Vi capsular administered Note: [facility] b i-directional polysaccharide vaccine interface ; Source: Other Registry Pneumovax 23 administered Note: MIIC bi-di rectional interface ; Sour ce: Other Registry influenza virus vaccine, administered Note: M IIC bi-directional unspecified formulation interfac e ; Source: Other Registry typhoid Vi capsular administered Note: [facility] b i-directional polysaccharide vaccine interface ; Source: Other Registry Influenza, seasonal, injectable, administered Note: [facility] bi-directional preservative free interface ; So urce: Other Registry Havrix administered Note: MI[facility] bi-di rectional interface ; Sour ce: Other Registry zoster vaccine, live administered Note: MI[facility] bi-directional interface ; Sour ce: Other Registry Engerix-B administered Note: MIIC bi-di rectional interface ; Sour ce: Other Registry Influenza, seasonal, injectable administered Note: [facility] bi-directional interface ; Sour ce: Other Registry Twinrix administered Note: MIIC bi-di rectional interface ; Sour ce: Other Registry Novel [id number], all administered Not e: [facility] bi-directional formulations interface ; Sour ce: Other Registry Influenza, seasonal, injectable administered Note: MIIC bi-directional interface ; Sour ce: Other Registry typhoid Vi capsular administered Note: MIIC b i-directional polysaccharide vaccine interface ; Source: Other Registry tetanus toxoid, reduced administered Note: NC IC bi-directional diphtheria toxoid, and acellular interface ; Source: Other pertussis vaccine, adsorbed Faiza stry poliovirus vaccine, inactivated administered Note: MI[facility] bi-directional interface ; Sour ce: Other Registry Twinrix administered Note: MIIC bi-di rectional interface ; Sour ce: Other Registry Influenza, seasonal, injectable administered Note: [facility] bi-directional interface ; Sour ce: Other Registry Influenza, seasonal, injectable administered Note: MIIC bi-directional interface ; Sour ce: Other Registry Influenza, seasonal, injectable administered Note: MIIC bi-directional interface ; Sour ce: Other Registry Payers Payer name Insurance type Covered libertarian ID Authorization(s ) Medicare UYEN PALMER [id number] For Life [id number] Social History Type Description Quantity Date Captured Comments Sex Female Smoking Status No Information Chief Complaint And Reason For Visit No Information Reason For Referral Reason For Referral No Information Plan Of Treatment Date Type Action Status Goal Lifestyle education regarding di et completed History Of Present Illness Encounter Date Complaint History Of Present I llness GI Symptoms or Concerns Yarelis Painting is a 69-year-old female who is referred to clinic [facility] by Dr. 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 She states that since at time, she has been taking Bentyl on a r elatively regular basis. This was mainly for abdominal pain. She was initially started on 10 mg 3 times daily and this dose has been i ncreased to 20 mg 3 times daily. Over the year s, the patient states that she began feeling a little bit more constipated and bega n having less productive bowel movements.The patient was seen by Dr. Wellington Beck in [facility] for evaluation of these symptoms. She last had a colonoscopy in [address] [facility]. These notes were reviewed. Colonoscop y at that time revealed a norm Functional Status Date Functional Assessment No Information Instructions Date Instruction Additional Informati on Lifestyle education regarding diet Relat ed to Dietary counseling and surveillance Assessments Type Assessment Date No Information Patient Care Teams Name Effective Dates (start - stop) Status M embers No Information
== END 2022-06-24 12:41 | disposition home or self-care (01) ==
PROVIDERS: PCP Internal Medicine; Visit Provider Orthopaedic Surgery Sports Medicine
DX: Z01.818 Encounter for other preprocedural examination (principal)
CPT/HCPCS: 36415; 86850; 86900; 86901

== ENCOUNTER 2022-06-26 09:11 | Day surgery (SDC) | payer MEDICARE, OTHER, SELFPAY ==
[2022-06-26] VITALS (22 sets, daily range): BP systolic 78–123; BP diastolic 42–70; PULSE 62–89; RESP 14–18; TEMP 35.9–37.2; O2SAT 93–100; BMI 25.2
[2022-06-26] MEDS: LACTATED RINGERS 1000 ML 1,000 ML 100 ML IV ×2 (09:00→14:50)
[2022-06-26] MEDS: ACETAMINOPHEN 500 MG TABLET 1000 MG PO ×3 (09:40→23:46)
[2022-06-26] MEDS: OXYCODONE (CR) 10 MG TAB.ER.12H PO (09:40)
--- NOTE | 2022-06-26 11:15 | CRLHL7_ITS ---
For Patients: As a result of the Cures Act, medical imaging exams and procedure reports are released immediately into your electronic medical record. You may view this report before your referring provider. If you have questions, please contact your health care provider. Indication: Hip replacement surgery Technique: AP hip fluoroscopic image. Fluoroscopy time 39.0 seconds. Findings/Impression: Hardware from a right total hip arthroplasty is in satisfactory position. Dictated by Kobe Zamudio MD @ 06/29/2022 9:11:21 AM (Electronically Signed)
[2022-06-26] MEDS: MIDAZOLAM HCL 1 MG/ML inj IVP (11:31)
[2022-06-26] MEDS: fentaNYL 100 MCG/2 ML inj IVP (11:31)
--- NOTE | 2022-06-26 11:41 | SUR.PREOP ---
TIME?OUT:?1130 PT/RN/MDA?VERIFICATION?OF?SURGICAL?SITE,?PROCEDURE,?AND?CONSENT OBTAINED?PRIOR?TO?INVASIVE?PROCEDURE.
[2022-06-26] MEDS: CEFAZOLIN 2 GM in 0.9 % SODIUM CHLORIDE Mini-bag 100 ML IVPB (11:51)
--- NOTE | 2022-06-26 13:22 | P.ORPRC_ITS ---
Procedure Note Date of procedure: 06/26/22 Procedure: PREOPERATIVE DIAGNOSIS: 1. Right hip osteoarthritis, severe, primary POSTOPERATIVE DIAGNOSIS: 1. Right hip osteoarthritis, severe, primary PROCEDURE: 1. Right total hip arthroplasty-anterior approach 2. 62290 - intraoperative fluoroscopy up to 1 hour. SURGEON: Addi Lepe MD. PIN MACHINE TENDER: Elvis Jarvis PA-C; GABRIELLA Haji - Of note, a skilled document control assistant was critical for this case to aid in patient positioning, tissue retraction, limb manipulation/positioning, and closure. ANESTHESIA: Spinal anesthetic EBL: 250 mL IMPLANTS: DePuy J&J uncemented total hip [place] cup size 52, hole eliminator, +0 neutral liner Actis stem, high offset, size 8 +1 mm ceramic 32mm head COMPLICATIONS: None evident INDICATIONS: The patient is a pleasant 71-year-old female who has experienced severe right hip pain and difficulty bearing weight. Workup included x-rays which revealed severe osteoarthrosis in the hip. Given the deformity, the dysfunction, and the pain, as well as the failure of nonoperative management, recommendation was made for surgery. FINDINGS: Full-thickness chondral loss posterior femoral head. Significant acetabular wear as well. Osteophytes around the perimeter of the femoral head/neck junction especially. Large effusion upon entering the joint. DESCRIPTION OF PROCEDURE: Following a thorough discussion of risks, benefits, and alternatives consent was obtained and the right hip was marked. The patient was brought to the operating room and placed supine on the operating table. Induction of anesthesia was undertaken. 1 g IV Ancef and 1 g tranexamic acid was administered within 1 hr of incision preoperatively. Proper time-out was performed identifying proper patient, site, procedure. The operative extremity was prepped and draped in the appropriate sterile fashion using ChloraPrep after the patient was positioned on the [place] table with head in neutral alignment and all bony prominences well padded. C-arm fluoroscopic imaging was utilized to confirm proper pelvis rotation and position, and to get true AP films of both the contralateral left, and the affected right hip. This is for comparison. A longitudinal incision was made starting approximately 1 cm distal to the ASIS, and 3-4 cm lateral. The incision was extended distally aiming toward the lateral border the patella. Sharp incision through skin and bovie cautery through the subcutaneous tissue allowed identification of the TFL fascia. This was sharply divided, and the fascia bluntly released from the muscle fibers as we dissected medial. Upon coming to the medial border, we were able to retract the TFL laterally, and penetrated the deeper fascia and identify the crossing circumflex vessels. These were ligated/cauterized. The rectus was elevated from the capsule, and retractors placed laterally and medially along the femoral neck to help with visualization of the capsule. We then performed an inverted T capsulotomy. The capsule was tagged for later repair. Retractors were placed inside the capsule. The femoral neck was visualized after releasing medially down to the lesser trochanter, along the saddle laterally, and up onto the acetabulum. The femoral neck cut was made in line with our preoperative templating. The head was removed in a single piece, and sized. We turned our attention to acetabular preparation. Initially, the labrum was resected from around the perimeter, the pulvinar was excised, allowing us to visualize the false wall. We started the reaming with a 43 mm reamer. This was medialized down to the true wall. We then enlarged our reamers sequentially up to one size less than the selected cup size. We trialed at the same size and found it to have an excellent fit. The selected cup was then opened, inserted, and impacted in line with the goal of 40? of abduction, and 20-25? of anteversion. This was confirmed on C-arm fluoroscopic imaging to be in the appropriate/goal position. Once the cup was placed we placed a hole eliminator and a liner consistent with preop planning. Attention was turned to the femoral preparation. The limb was extended, externally rotated, and adducted. The posteromedial capsule was released, as retractors were placed allowing excellent access to the proximal femur. Initially a farebox repairer was followed by canal finder followed by various broaches. We broached sequentially up to the size noted above, found it to have excellent rotational control, and trialing various heads and necks, revealed that appropriate neck offset, and the above noted head size provided the greatest stability, and presybeterian of length, and offset. C-arm fluoroscopic imaging confirmed position of the stem, as well as leg lengths, which were compared with the pre procedure all fluoroscopic images. Trial implants were removed, the real femoral stem inserted, as was the appropriate head. After reducing, the leg was placed through range of motion and stability was confirmed anterior, posterior, and lateral. A 3 min Betadine soak was then performed, and thorough irrigation with normal saline followed. Closure of the capsule was performed with #1 PDS. Bleeding was confirmed to be controlled at this stage, and the TFL fascia was closed with #0 strata fix. Subcutaneous, and subcuticular closure was performed with 2-0 Vicryl and 4-0 Monocryl, respectively. Dressings were applied, and the patient was awoken from anesthesia and transferred the PACU in stable condition. A skilled document control assistant was critical for this case to aid in patient positioning, tissue retraction, acetabular and proximal femoral exposure, limb manipulation/positioning, dislocation/relocation, patient safety, and closure. PLAN: 1. Weight bear as tolerated operative extremity. 2. 23 hr perioperative antibiotics. 3. Ice. 4. PT/OT consults for ambulation assistance/mobility education. 5. Social work consult for discharge planning. 6. DVT prophylaxis with at SCDs, Thomas Hose, and Xarelto x5 days followed by aspirin for a total of 1 month..
--- NOTE | 2022-06-26 14:07 | PM.IMPN1 ---
Progress Note: A&P Assessment and plan (1) Depression: Status: Acute (2) Status post total replacement of right hip: Problem details: SHERRY-AA (06/26/2022, Dr. Lepe) Status: Acute Plan 1. s/p Right total hip arthroplasty-anterior approach ANESTHESIA:? Spinal anesthetic EBL:250 mL -pain control; diet, dvt ppx per surger 2. Hx of Depression -continue zoloft 3. Hx of IBS; continue linzess 4. Hx of HLD; continue zetia Time Spent With Patient Total time spent: 25 Subjective Date Seen: 06/26/22 Interval history: patient is doing well following surgery; denies chest pain, sob, nausea, vomiting s/p Right total hip arthroplasty-anterior approach SURGEON:? Addi Lepe MD. ANESTHESIA:? Spinal anesthetic EBL:? 250 mL Exam Narrative: Exam Narrative: Gen: no acute distress HEENT: NCAT EOMI mmm Neck: Supple CV: RRR normal s1 s2 Lungs: CTAB Abd: Soft,nt, nd Neuro: Alert, oriented, CN grossly intact; nonfocal screening?exam Psych: appropriate affect MSK: age appropriate muscle mass Skin; Warm, dry no rash on face Const: Vital Signs, click to edit/add: Vital Signs - 24 hr 06/26/22 09:57 06/26/22 11:30 06/26/22 11:35 Temperature 99.0 F Pulse Rate 68 64 62 Respiratory Rate 16 14 14 Blood Pressure 123/64 122/70 114/63 Pulse Oximetry 99 100 100 Oxygen Delivery Me thod Room Air Nasal Cannula Nasal Cannula Oxygen Flow Rate 2 2
--- NOTE | 2022-06-26 14:18 | CRLHL7_ITS ---
For Patients: As a result of the Cures Act, medical imaging exams and procedure reports are released immediately into your electronic medical record. You may view this report before your referring provider. If you have questions, please contact your health care provider. Indication: POST OP RIGHT SHERRY Technique: AP pelvis and lateral view right hip Findings/Impression: Hardware from a right total hip arthroplasty is in satisfactory position. Bone alignment is normal. No sign of acute fracture. Postop changes are within normal limits. Dictated by Kobe Zamudio MD @ 06/29/2022 9:13:37 AM (Electronically Signed)
--- NOTE | 2022-06-26 14:19 | W.ANESCHARGE ---
Anesthesia Charges Start Date/Time Anesthesia Start Date: 06/26/22 Anesthesia Start Time: 11:40 Stop Date/Time Anesthesia Stop Date: 06/26/22 Anesthesia Stop Time: 14:16 Summary Emergency: No Extremes of Age: Over 69-CPT 24831
[2022-06-26] MEDS: fentaNYL 100 MCG/2 ML inj 50 MCG IVP (14:37)
--- NOTE | 2022-06-26 15:29 | W.PM.NB ---
Nerve Block Nerve Block Time Seen by Provider: 11:34 Date Seen: 06/26/22 Type of block requested by surgeon for post-operative analgesia: SANTIAGO/LFCN Side: right Time out performed: Yes Verification of patient name: Yes Verification of date of : Yes Site marking: site marked Name of person performing procedure: Bebeto Continuous monitoring Was continuous monitoring of O2 sat, B/P, quality assurance monitor body, recorded every 15 minutes?: Yes Procedure Checklist: sterile prep, needles and gloves Ultrasound guided. Images saved: Yes Medications given in 5ml increments after negative aspiration: Ropivicaine %: 0.5 mL: 30 Needle gauge: 20 Decadron (mg): 10 Precedex (mcg): 25 Patient tolerated procedure well: Yes Additional comments: Needle noted below psoas tendon needle noted adjacent to LFCN Block Charges Block Charge (with Pro Fee): Other Periph Nerve Block Use of Ultrasound Machine for Block: Yes- US Guidance/pain block
--- NOTE | 2022-06-26 15:29 | W.ANESCHARGE ---
Anesthesia Charges Start Date/Time Anesthesia Start Date: 06/26/22 Anesthesia Start Time: 11:40 Stop Date/Time Anesthesia Stop Date: 06/26/22 Anesthesia Stop Time: 14:16 Summary Emergency: No Extremes of Age: Over 69-CPT 72766
[2022-06-26] MEDS: 0.9 % SODIUM CHLORIDE 1000 ml 1,000 ML IV (16:35)
[2022-06-26] MEDS: OXYCODONE 5 MG TABLET PO ×2 (18:05→21:35)
[2022-06-26] MEDS: CEFAZOLIN 1 GM in 0.9 % SODIUM CHLORIDE Mini-bag 100 ML IVPB (18:47)
[2022-06-26] MEDS: 0.9 % SODIUM CHLORIDE 1000 ml 1,000 ML 500 ML IV (19:20)
--- NOTE | 2022-06-26 19:49 | PC.NURSE ---
Pt. up to floor at 1505 alert and oriented. Pt.'s at bedside. Dressing to right hip C/D/I. Pt. denies any N/V/SOB. BP on the softer side, aware. 1000 fluid bolus was ordered to be given over an hour, recheck of BP after an hour it was still on the softer side. MD aware and ordered 1000 fluid bolus to be administered over 2hrs. Pt. tolerating ice chips, water, food. Up to use the commode but did not void. Pt. tolerated standing up. Bladder scanned and there was about 300CC. Pt was informed of possible straight cath if she could not void and agreed to try again. Pt rated her pain 4-5/10 PRN oxy was administered w/relief.
[2022-06-26] MEDS: SENNOSIDES 1 TAB TABLET 2 TAB PO (20:50)
[2022-06-27] MEDS: CEFAZOLIN 1 GM in 0.9 % SODIUM CHLORIDE Mini-bag 100 ML IVPB (02:46)
[2022-06-27 03:00] VITALS: BP 100/56; PULSE 72; RESP 18; TEMP 36.7; O2SAT 98
[2022-06-27] MEDS: LACTATED RINGERS 1000 ML 1,000 ML 75 ML IV (03:24)
[2022-06-27] MEDS: OXYCODONE 5 MG TABLET PO ×3 (04:57→11:21)
[2022-06-27] MEDS: hydrOXYzine pamoate 25 MG CAPSULE PO (05:41)
[2022-06-27] MEDS: ACETAMINOPHEN 500 MG TABLET 1000 MG PO ×2 (06:05→11:24)
--- NOTE | 2022-06-27 06:10 | PC.NURSE ---
Patient is alert and oriented x4. Pain managed with scheduled Tylenol and PRN Oxycodone 5 mg x2. Patient is continent of bowel and bladder, up to bedside commode x6 and voiding adequately. IV antibiotic infused x1, and IV fluid infusing @ 75 ml/hr and tolerating well. Pt been having soft BP throughout this shift. Pt is stable, call light within reach; Will call appropriately.
[2022-06-27 06:37] LABS: Basophils Percent Auto 0.1 % (0.0-3.0); Hemoglobin* 12.5 gm/dL (12.0-16.0); Immature Granulocytes Pct Auto 0.1 %; Lymphocytes Percent Auto 26.9 % (20-44); Mean Corpuscular HGB Conc 33 gm/dL (32-36); Mean Corpuscular Hemoglobin 34 pg (26-34); Mean Corpuscular Volume 102 fL (80-100); Monocytes Percent Auto 9.2 % (0.0-11.0); Neutrophils Percent Auto 63.7 % (42.0-72.0); Platelet Count* 249 K/uL (140-440); RDW Coefficient of Variation % 14.2 % (11.5-15.5); Red Blood Count 3.72 m/uL (4.00-5.20); White Blood Count* 12.38 K/uL (4.50-11.00)
[2022-06-27 06:42] LABS: Slide Review Reflex No
[2022-06-27 06:55] LABS: Potassium* 3.5 mmol/L (3.6-5.1); Sodium* 137 mmol/L (135-149)
[2022-06-27 06:58] LABS: Creatinine* 0.5 mg/dL (0.5-1.5); Estimated Glomerular Filt Rate 100 ml/min
[2022-06-27 06:59] LABS: Blood Urea Nitrogen* 11 mg/dL (7-30)
[2022-06-27 07:00] VITALS: BP 106/46; PULSE 71; RESP 18; TEMP 36.6; O2SAT 100
[2022-06-27] MEDS: POTASSIUM BICARB 25 MEQ EFFERVESCENT TAB PO (08:54)
[2022-06-27] MEDS: SERTRALINE 100 MG TABLET 200 MG PO (08:54)
[2022-06-27] MEDS: EZETIMIBE 10 MG TABLET PO (08:54)
[2022-06-27] MEDS: RIVAROXABAN 10 MG TABLET PO (08:54)
[2022-06-27] MEDS: SENNOSIDES 1 TAB TABLET 2 TAB PO (08:54)
[2022-06-27] MEDS: NON-FORMULARY MEDICATION (Linaclotide [Linzess] 290 mcg capsule) 290 EACH PO (08:58)
--- NOTE | 2022-06-27 09:29 | PM.ORPN ---
Subjective Subjective Date Seen: 06/27/22 Principal diagnosis: Status postop day 1, right total hip arthroplasty - anterior approach Interval history: Patient reports doing well. Feels the pain this right hip is more than her left hip at this phase 5 years ago. No acute events over night. Pain managed with scheduled /PRN medications and ice. DVT prophylaxis rivaroxaban, bilateral knee high Thomas stockings, and SCDs. Denies fevers, chills, aches, N/V, CP, SOB/HOLDEN, tachycardia, or lightheadedness. She talks about being a little lightheaded yesterday after surgery which has resolved. Ortho Exam Narrative Exam Narrative: -Patient appears comfortable in recliner; no apparent acute distress. Breakfast is in front of her -Alert and oriented times 3 -Operative hip mildly swollen; soft tissues supple; no obvious erythema. Small amount of deep purple/red color ecchymosis distal aspect of the bandage/wound. This area is slightly boggy, not firm, no induration, no fluctuance. Warmth appropriate -Surgical dressing clean, dry, intact; no obvious drainage, no erythematous streaking peripheral to the bandage -Bilateral calves soft and supple; no significant swelling, edema, tenderness, erythema, discoloration, warmth, or palpable cords -2+ DP/PT pulses, intact dermatomes and myotomes distally (5/5 strength). No numbness about the lateral femoral cutaneous nerve distribution. Const Vital Signs, click to edit/add: Vital Signs - 24 hr 06/26/22 09:57 06/26/22 11:30 06/26/22 11:35 Temperature 99.0 F Pulse Rate 68 64 62 Pulse Rate [Left] Respiratory Rate 16 14 14 Blood Pressure 123/64 122/70 114/63 Blood Pressure [Right Arm] Pulse Oximetry 99 100 100 Oxygen Delivery Method Room Air Nasal Cannula Nasal Cannula Oxygen Flow Rate 2 2 06/26/22 14:11 06/26/22 14:20 06/26/22 14:45 Temperature 97.8 F Pulse Rate 74 69 70 Pulse Rate [Left] Respiratory Rate 14 14 16 Blood Pressure 104/54 L 90/47 L 89/59 L Blood Pressure [Right Arm] Pulse Oximetry 96 95 97 Oxygen Delivery Method Room Air Room Air Room Air Oxygen Flow Rate 2 06/26/22 14:50 06/26/22 14:55 06/26/22 14:25 Temperature Pulse Rate 70 73 74 Pulse Rate [Left] Respiratory Rate 16 16 14 Blood Pressure 88/57 L 90/57 L 90/46 L Blood Pressure [Right Arm] Pulse Oximetry 97 97 93 Oxygen Delivery Method Room Air Room Air Room Air Oxygen Flow Rate 2 06/26/22 14:35 06/26/22 14:40 06/26/22 14:59 Temperature 97.5 F L Pulse Rate 70 70 74 Pulse Rate [Left] Respiratory Rate 14 14 16 Blood Pressure 105/42 L 87/50 L 94/56 L Blood Pressure [Right Arm] Pulse Oximetry 93 97 98 Oxygen Delivery Method Room Air Room Air Room Air Oxygen Flow Rate 2 2 06/26/22 16:13 06/26/22 15:15 06/26/22 15:45 Temperature 96.7 F L 96.7 F L 96.8 F L Pulse Rate 76 Pulse Rate [Left] 70 78 Respiratory Rate 16 16 16 Blood Pressure Blood Pressure [Right Arm] 99/59 L 101/58 L 116/53 L Pulse Oximetry 97 98 Oxygen Delivery Method Room Air Room Air Room Air Oxygen Flow Rate 06/26/22 16:00 06/26/22 16:30 06/26/22 17:00 Temperature 98.8 F 96.8 F L 96.9 F L Pulse Rate Pulse Rate [Left] 82 80 82 Respiratory Rate 16 16 16 Blood Pressure Blood Pressure [Right Arm] 78/55 L 86/52 L 108/53 L Pulse Oximetry 99 98 99 Oxygen Delivery Method Room Air Room Air Room Air Oxygen Flow Rate 06/26/22 15:02 06/26/22 18:00 06/26/22 19:00 Temperature 96.8 F L 96.9 F L 97.8 F Pulse Rate Pulse Rate [Left] 78 89 78 Respiratory Rate 16 16 16 Blood Pressure Blood Pressure [Right Arm] 116/53 L 90/57 L 99/55 L Pulse Oximetry 98 96 Oxygen Delivery Method Room Air Room Air Room Air Oxygen Flow Rate 99 06/26/22 23:00 06/27/22 03:00 Temperature 97.8 F 98.1 F Pulse Rate Pulse Rate [Left] 76 72 Respiratory Rate 18 18 Blood Pressure Blood Pressure [Right Arm] 104/57 L 100/56 L Pulse Oximetry 98 98 Oxygen Delivery Method Room Air Room Air Oxygen Flow Rate Assessment and Plan Assessment and plan (1) Status post total replacement of right hip: Problem details: SHERRY-AA (06/26/2022, Dr. Lepe) Status: Acute (2) Depression: Status: Acute Plan - Complete 23 hour perioperative antibiotics. - PT/OT consult for education and assistance. - Social work consult for discharge planning - Prescribed analgesics as needed - DVT prophylaxis: Rivaroxaban, bilateral knee high Thomas Hose stockings and SCDs - Anticipation is for discharge to home 06/27/2022 if the patient remains medically stable, pain is controlled, and they are safe with mobilization.
[2022-06-27 09:30] VITALS: BP 94/56; PULSE 76; RESP 18; TEMP 36.7
--- NOTE | 2022-06-27 09:34 | PM.DS1 ---
DS: Providers Provider Date Seen: 06/27/22 Date of admission: Med/Surg Recovery 06/26/2022 Primary care physician: Esme Chi MD Consults: 06/26/22 15:02 Consult to Occupational Therapy [CONS] Routine Comment: Reason(s) for OT Consult:: ADLs Prior to Discharge Any Restrictions?:: No Restrictions Comment: Consult to Physical Therapy [CONS] Routine Comment: Ambulate in the [place] today Reason(s) for PT Consult:: Evaluate and Treat Any Restrictions?:: No Restrictions Comment: Nursing Activity Consult to Physician [CONS] Routine Comment: Consulting Provider: Hospitalists Has provider been notified: No Consult to [place] Manager [CONS] Routine Comment: Reason for Consult:: Discharge Planning Needs Attending Physician on discharge: Addi Lepe MD Date of Discharge: 06/27/22 DS: Diagnosis Discharge Diagnosis (1) Status post total replacement of right hip: Status: Acute Problem details: SHERRY-AA (06/26/2022, Dr. Lepe) DS: Summary Hospital Course Hospital Course: The patient has a history of right hip osteoarthritis, primary, severe. After appropriate preoperative evaluation, the patient underwent right total hip arthroplasty. Postoperatively given anticoagulation for deep vein thrombosis prophylaxis, rivaroxaban for the first 5 days, followed by aspirin for the rest for 25 days. They progressed to PT/OT and were felt ready and prepared for discharge to home with appropriate pain medication and anticoagulation medications. Status at Discharge Functional status at discharge: uses cane/walker Overall status at discharge: patient is progressing back to baseline Time Spent with Patient Time attestation: Total time spent providing and/or coordinating discharge services: Exam Const: Vital Signs, click to edit/add: Vital Signs - 24 hr 06/26/22 09:57 06/26/22 11:30 06/26/22 11:35 Temperature 99.0 F Pulse Rate 68 64 62 Pulse Rate [Left] Respiratory Rate 16 14 14 Blood Pressure 123/64 122/70 114/63 Blood Pressure [Ri ght Arm] Pulse Oximetry 99 100 100 Oxygen Delivery Me thod Room Air Nasal Cannula Nasal Cannula Oxygen Flow Rate 2 2 06/26/22 14:11 06/26/22 14:20 06/26/22 14:45 Temperature 97.8 F Pulse Rate 74 69 70 Pulse Rate [Left] Respiratory Rate 14 14 16 Blood Pressure 104/54 L 90/47 L 89/59 L Blood Pressure [Ri ght Arm] Pulse Oximetry 96 95 97 Oxygen Delivery Me thod Room Air Room Air Room Air Oxygen Flow Rate 2 06/26/22 14:50 06/26/22 14:55 06/26/22 14:25 Temperature Pulse Rate 70 73 74 Pulse Rate [Left] Respiratory Rate 16 16 14 Blood Pressure 88/57 L 90/57 L 90/46 L Blood Pressure [Ri ght Arm] Pulse Oximetry 97 97 93 Oxygen Delivery Me thod Room Air Room Air Room Air Oxygen Flow Rate 2 06/26/22 14:35 06/26/22 14:40 06/26/22 14:59 Temperature 97.5 F L Pulse Rate 70 70 74 Pulse Rate [Left] Respiratory Rate 14 14 16 Blood Pressure 105/42 L 87/50 L 94/56 L Blood Pressure [Ri ght Arm] Pulse Oximetry 93 97 98 Oxygen Delivery Me thod Room Air Room Air Room Air Oxygen Flow Rate 2 2 06/26/22 16:13 06/26/22 15:15 06/26/22 15:45 Temperature 96.7 F L 96.7 F L 96.8 F L Pulse Rate 76 Pulse Rate [Left] 70 78 Respiratory Rate 16 16 16 Blood Pressure Blood Pressure [Ri ght Arm] 99/59 L 101/58 L 116/53 L Pulse Oximetry 97 98 Oxygen Delivery Me thod Room Air Room Air Room Air Oxygen Flow Rate 06/26/22 16:00 06/26/22 16:30 06/26/22 17:00 Temperature 98.8 F 96.8 F L 96.9 F L Pulse Rate Pulse Rate [Left] 82 80 82 Respiratory Rate 16 16 16 Blood Pressure Blood Pressure [Ri ght Arm] 78/55 L 86/52 L 108/53 L Pulse Oximetry 99 98 99 Oxygen Delivery Me thod Room Air Room Air Room Air Oxygen Flow Rate 06/26/22 15:02 06/26/22 18:00 06/26/22 19:00 Temperature 96.8 F L 96.9 F L 97.8 F Pulse Rate Pulse Rate [Left] 78 89 78 Respiratory Rate 16 16 16 Blood Pressure Blood Pressure [Ri ght Arm] 116/53 L 90/57 L 99/55 L Pulse Oximetry 98 96 Oxygen Delivery Me thod Room Air Room Air Room Air Oxygen Flow Rate 99 06/26/22 23:00 06/27/22 03:00 06/27/22 09:30 Temperature 97.8 F 98.1 F 98.1 F Pulse Rate 76 Pulse Rate [Left] 76 72 Respiratory Rate 18 18 18 Blood Pressure 94/56 L Blood Pressure [Ri ght Arm] 104/57 L 100/56 L Pulse Oximetry 98 98 Oxygen Delivery Me thod Room Air Room Air Oxygen Flow Rate DS: Data Data Completed and Pending Labs on day of discharge: Labs from last 24 hours 06/27/22 06/27/22 06:19 06:19 WBC 12.38 H RBC 3.72 L Hgb 12.5 Hct 38.0 MCV 102 H MCH 34 MCHC 33 RDW Coeff of Steven 14.2 Plt Count 249 Neut % (Auto) 63.7 Lymph % (Auto) 26.9 [place] % (Auto) 9.2 Eos % (Auto) 0.0 Baso % (Auto) 0.1 Neut # (Auto) 7.90 H Lymph # (Auto) 3.30 H [place] # (Auto) 1.10 H Eos # (Auto) 0.00 Baso # (Auto) 0.00 Sodium 137 Potassium 3.5 L BUN 11 Creatinine 0.5 Estimated Creat Clear 47.60 Estimated GFR 100 Discharge Plan Discharge Disposition: Home, Self-Care Discharging Surgeon: Addi Lepe Follow-Up Appointment: 1 week PO with [facility]IT Prescriptions: New aspirin 81 mg tablet,delayed release (DR/EC) 81 mg PO BID Qty: 50 0RF Rx Instructions: Medication to help prevent blood clots postoperatively; take TWICE daily. acetaminophen 500 mg capsule 500 - 1,000 mg PO Q6H MDD 4000mg PRNQty: 100 0RF oxycodone 5 mg tablet 2.5 - 5 mg PO Q4-6H MDD 6 PRN (Reason: pain) Qty: 42 0RF Rx Instructions: Take as needed for postop pain: 2.5mg mild pain, 5mg moderate-severe pain; wean as tolerated. rivaroxaban 10 mg tablet 10 mg PO DAILY Qty: 4 0RF Rx Instructions: Medication for deep vein clot prevention post surgery. Complete this medication before starting Aspirin. sennosides-docusate sodium [Senna-S] 8.6-50 mg tablet 1 - 4 tab-cap PO BID PRN (Reason: constipation) Qty: 60 0RF Rx Instructions: Hold medication if experiencing loose stools. Continued lorazepam 0.5 mg tablet 1 mg PO QAM sertraline 100 mg tablet 200 mg PO DAILY Linzess 290 mcg capsule 290 mcg PO QAM lorazepam [Ativan] 0.5 mg tablet 0.5 mg PO QHS ezetimibe [Zetia] 10 mg tablet 10 mg PO DAILY Activity Level: Activity as Tolerated, Weight Bearing as Tolerated, Use Cane and Use Walker Activity Detail: Wound: ?Do not remove original dressing; we will remove this at first postop visit in 1 week. Only remove dressing if integrity is in question. ?No immersing wound in water; showering okay; light scrub with your hand and body soap, rinse, dab dry ?Sutures are under the skin, will dissolve; allow surgical glue to come off naturally; do not scrub the wound or apply ointments/lotions ?Call our office with any redness that streaks, excessive drainage from the wound, or wound gapping. Ice/Elevate: ?Ice as needed for swelling and discomfort (cryocuff or ice pack); elevate frequently above the heart SAMMY socks: ?Wear for 1 month, remove for 1 hour 3 times per day ?These are frustrating to take on/off, but are important for blood clot prevention for 1 month after surgery Blood Clot Prevention (DVT): ?Medication: Rivaroxaban, and transition to 81 mg aspirin by mouth twice daily (total one month of protection). Driving: ?Do not drive while taking narcotic pain medication ?Anticipate 4-6 weeks no driving if operative leg is driving leg Dental: ?No elective dental work for 6 months post-op. If there is an urgent/emergent dental need, contact our office for an antibiotic prescription. Smoking/Alcohol: ?Do not smoke; do no drink alcohol especially when taking postoperative oral narcotic medication Seek Care from you Primary Care Provider if you experience the following issues in the postoperative phase and beyond: ?Bacterial infections such as: pneumonia, bacterial skin infection (cellulitis), UTI, high fever, chills unrelated to the operative body part - call your primary care physician urgently for treatment in hopes to protect your health and the metal implant. Referrals: ?PT, OT per patient preference - evaluate treat total hip arthroplasty protocol (gait training, ROM, ADLs) Follow up: ?Ortho surgeon follow-up in 6 weeks; repeat radiographs AP pelvis, cross-table lateral operative hip ?PA-Mihaela visit in 1 week *If there are any acute concerns regarding your surgery, please call our orthopedic clinic ([phone]) Discharge Diet: Regular Patient Instructions: Acetaminophen (By mouth), Aspirin (By mouth), Oxycodone, Rapid Release (By mouth), Rivaroxaban (By mouth) (Xarelto, Xarelto Starter Pack), Senna (By mouth), Total Hip Replacement (DC), Surgical Site Infections (DC) Forms: Work/School Release Follow-up: Esme Chi MD [Primary Care Provider] - Elvis Jarvis PA-C [Physician Learn [employer] Sw[employer] Instructor] - 07/06/22 11:10 am (At the [facility]. Call if you have any questions.) Discharge Orders: Discharge Order (Routine); Ordered 06/27/22 Ordered By: Elvis Jarvis Consulting provider completed their portion of the discharge: Yes
[2022-06-27] MEDS: ONDANSETRON 2 MG/ML inj 4 MG IVP (10:16)
[2022-06-27 11:00] VITALS: BP 107/48; PULSE 77; RESP 18; TEMP 36.7; O2SAT 97
--- NOTE | 2022-06-27 12:45 | PC.NURSE ---
Discharge: pt. alert and oriented x4. Dressing to right hip C/D/I. Pt. denies SOB. BP on the softer side, MD aware. Zofran administered for Nausea and vomiting 300CC during occupational therapy. Pt rated her pain 4-5/10 PRN oxy was administered w/relief see eMAR. Pt. discharged at 1230 via wheelchair accompanied by spouse. IV removed intact. Belongings list signed and Discharge instructions given and signed. Pt. verbalized understanding of discharge instructions.
== END 2022-06-27 12:30 | disposition home or self-care (01) ==
LOC: OR 09:12 → MEDSURG 09:16
PROVIDERS: PCP Internal Medicine; Visit Provider Orthopaedic Surgery Sports Medicine
PROC: (CPT 27130; principal; 2022-06-26 11:15)
DX: M16.11 Unilateral primary osteoarthritis, right hip (principal); M25.551 Pain in right hip; F32.A Depression, unspecified; K58.9 Irritable bowel syndrome, unspecified; E78.5 Hyperlipidemia, unspecified
CPT/HCPCS: 27130; 01214; 36415; 51798; 64450; 73501; 76000; 76942; 82565; 84132; 84295; 84520; 85025; 97116; 97161; 97165; 99100; A9270; C1776; J0690; J1100; J2250; J2370; J2405; J2704; J2795; J3010; J7030; J7120

== ENCOUNTER 2022-07-06 10:46 | Emergency (ER) | payer MEDICARE, OTHER, SELFPAY ==
[2022-07-06 11:08] VITALS: BP 131/62; PULSE 84; RESP 16; TEMP 36.4; O2SAT 99; BMI 25.2
[2022-07-06 12:11] LABS: Troponin, Point-of-Care* 0.01 ng/ml (0.01-0.04)
--- NOTE | 2022-07-06 18:15 | ED.GENADULT ---
HPI - General Adult General Chief complaint: Dizziness/Vertigo Stated complaint: Shortness of breath Time Seen by Provider: 07/06/22 11:27 History of Present Illness HPI narrative: 71-year-old woman presenting to the emergency department with complaint of lightheadedness and maybe little dizzy this starting around 2-3 hours ago. Has not been vomiting. Overall feels much better. Slight nausea still. She notes that has been taking oxycodone since her right hip surgery 2 weeks ago. The she thinks that maybe some of this is related to that. However further questioning reveals that she had actually been bending over cleaning the cat box when this started. She does not have palpitations or rapid heart rate. She does have episodes like this intermittently and has for quite some time. She notes a predisposition to vasovagal/syncopal events. She says her whole family is like this. Does not have known cardiac disease. Was rather hypotensive following recent right hip replacement as well. She also says that she gets short of breath when she starts feeling like this noted attribute that to anxiety which has been present for longer period time as well. Related Data Home Medications Medication Instructions Recorded Confirmed lorazepam 0.5 mg tablet 1 mg PO QAM 01/09/22 07/07/22 sertraline 100 mg tablet 200 mg PO DAILY 01/09/22 07/07/22 linaclotide 290 mcg capsule 290 mcg PO QAM 01/31/22 07/07/22 (Linzess) ezetimibe 10 mg tablet (Zetia) 10 mg PO DAILY 06/22/22 07/07/22 lorazepam 0.5 mg tablet (Ativan) 0.5 mg PO QHS 06/22/22 07/07/22 Previous Rx's Medication Instructions Recorded acetaminophen 500 mg capsule 500 - 1,000 mg PO Q6H PRN #100 caps 06/27/22 aspirin 81 mg tablet,delayed 81 mg PO BID #50 tabs 06/27/22 release rivaroxaban 10 mg tablet 10 mg PO DAILY #4 tabs 06/27/22 sennosides 8.6 mg-docusate sodium 1 - 4 tab-cap PO BID PRN 06/27/22 50 mg tablet (Senna-S) constipation #60 tabs oxycodone 5 mg tablet 2.5 - 5 mg PO Q4-6H PRN pain #42 07/04/22 tabs hydroxyzine HCl 25 mg tablet 25 mg PO QID PRN #15 tabs 07/06/22 ondansetron 4 mg disintegrating 4 mg PO Q8H PRN nausea and 07/06/22 tablet vomiting #10 tabs Allergies Allergy/AdvReac Type Severity Reaction Status Date / Time NSAIDS (Non-Steroidal Allergy Intermediate hx GI bleed Verified 07/07/22 10:27 Anti-Inflamma celecoxib [From Celebrex] Allergy Mild Diarrhea Verified 07/07/22 10:27 fexofenadine Allergy Mild Insomnia Verified 07/07/22 10:27 gabapentin Allergy Mild visual Verified 07/07/22 10:27 acuity atorvastatin Allergy Verified 07/07/22 10:27 rosuvastatin [From Crestor] Allergy Verified 07/07/22 10:27 Review of Systems Status of ROS: Reports: 10 or more systems reviewed and unremarkable except as noted in History and below PFSH PFSH Medical History DDD (degenerative disc disease) Hyperlipemia IBS (irritable bowel syndrome) Lower GI bleed Osteopenia Pancreatic cyst Panic attacks Scoliosis Spondylolisthesis of lumbar region Squamous cell carcinoma of right hand Surgical History H/O splenectomy History of hemilaminectomy Hx of adenoidectomy Hx of tonsillectomy Hx of tubal ligation Status post arthroscopy of left knee (04/11/07) Status post total replacement of hip (02/13/17) Status post total replacement of right hip (06/26/22) Social History Smoking Status: Former smoker What tobacco products do you use: cigarettes Smoking quit date/years: >15 years ago Do you use any of these nicotine containing products: None How often do you have a drink containing alcohol: 4 or more times a week Alcohol type: wine How many standard drinks containing alcohol do you have on a typical day: 1 or 2 How often do you have six or more drinks on one occasion: Never AUDIT-C Alcohol total score: 4 Non-prescribed substance use: denies use Non-prescribed substance use details: CBD cream for pain Caffeine: Yes (coffee 1 cup/day) Are you using contraception or practicing any form of control: No Exam Narrative: Exam Narrative: Pleasantly talkative. NAD. Skin is warm and dry. No evidence of trauma on her person. Extremities are well perfused and without edema. Negative Homans. Cranial nerves 2-12 look to be intact. Not really able to reproduce the dizziness. If as noted subtly subjectively lightheaded. There is no nystagmus. Is breathing easily. Lungs are clear. Strong and equal carotid upstroke. Heart with a regular rate and rhythm. No murmur rub or gallop identified. Abdomen is soft and nontender. TMs bilaterally clear. Oropharynx is unremarkable. Const: Vital Signs, click to edit/add: Vital Signs - 24 hr 07/06/22 11:08 Temperature 97.5 F L Pulse Rate [Right Pulse Oximeter] 84 Respiratory Rate 16 Blood Pressure [Ri ght Upper Arm] 131/62 Pulse Oximetry 99 Oxygen Delivery Me thod Room Air Documenting provider has reviewed patient's vital signs: yes Course Vital Signs Vital signs: Initial Vital Signs Temperature 97.5 F L 07/06/22 11:08 Temperature Source Temporal Artery Scan 07/06/22 11:08 Pulse Rate 84 07/06/22 11:08 Pulse Rhythm 07/06/22 11:08 Respiratory Rate 16 07/06/22 11:08 Blood Pressure 131/62 07/06/22 11:08 Blood Pressure Mean 85 07/06/22 11:08 Pulse Oximetry 99 07/06/22 11:08 Oxygen Delivery Method 07/06/22 11:08 Vital Signs Temperature 97.5 F L 07/06/22 11:08 Pulse Rate 84 07/06/22 11:08 Respiratory Rate 16 07/06/22 11:08 Blood Pressure 131/62 07/06/22 11:08 Pulse Oximetry 99 07/06/22 11:08 Oxygen Delivery Method 07/06/22 11:08 Temperature 97.5 F L 07/06/22 11:08 Pulse Rate 84 07/06/22 11:08 Respiratory Rate 16 07/06/22 11:08 Blood Pressure 131/62 07/06/22 11:08 Pulse Oximetry 99 07/06/22 11:08 Oxygen Delivery Method 07/06/22 11:08 Medical Decision Making MDM Narrative Medical decision making narrative: This does not clearly appear to be BPPV. Propensity towards vasovagal events already described. Orthostatic maneuver involved with onset. Also in the setting of opiates and suspected mild intolerance. Nausea potentiating vasovagal? Ambulating well in the emergency department given recent surgery. Negative troponin. EKG unremarkable see below. No events on monitor during time in the ER. Lab Data Lab results reviewed: Yes I reviewed the patient's lab results Labs: Lab Results 07/06/22 Range/Units 11:39 POC Troponin I 0.01 (0.01-0.04) ng/ml ECG Data Attestation: I personally reviewed and interpreted this ECG as follows: (Normal sinus rhythm at a rate of 81. ) Discharge Plan Discharge Clinical Impression: Light-headedness, Sensitivity to medication Patient Disposition: Home w/ Parent or Adult Condition: Improved Additional Instructions: I would continue to focus on hydration. Take care with your transitions. Avoid bending stooping over particularly quickly. Be sure to keep using your walker at this time. You can take the hydroxyzine with the Percocet. If you wanted to see if that and a half tab is enough, I think that is a good idea. Only use what you need. If still nauseated, Zofran also available. Prescriptions: New ondansetron 4 mg tablet,disintegrating 4 mg PO Q8H PRN (Reason: nausea and vomiting) Qty: 10 0RF hydroxyzine HCl 25 mg tablet 25 mg PO QID PRNQty: 15 0RF No Action lorazepam 0.5 mg tablet 1 mg PO QAM sertraline 100 mg tablet 200 mg PO DAILY Linzess 290 mcg capsule 290 mcg PO QAM lorazepam [Ativan] 0.5 mg tablet 0.5 mg PO QHS ezetimibe [Zetia] 10 mg tablet 10 mg PO DAILY aspirin 81 mg tablet,delayed release (DR/EC) 81 mg PO BID Qty: 50 0RF Rx Instructions: Medication to help prevent blood clots postoperatively; take TWICE daily. acetaminophen 500 mg capsule 500 - 1,000 mg PO Q6H MDD 4000mg PRNQty: 100 0RF rivaroxaban 10 mg tablet 10 mg PO DAILY Qty: 4 0RF Rx Instructions: Medication for deep vein clot prevention post surgery. Complete this medication before starting Aspirin. sennosides-docusate sodium [Senna-S] 8.6-50 mg tablet 1 - 4 tab-cap PO BID PRN (Reason: constipation) Qty: 60 0RF Rx Instructions: Hold medication if experiencing loose stools. oxycodone 5 mg tablet 2.5 - 5 mg PO Q4-6H MDD 6 PRN (Reason: pain) Qty: 42 0RF Rx Instructions: Take as needed for postop pain: 2.5mg mild pain, 5mg moderate-severe pain; wean as tolerated. Follow Up/Referrals: Esme Chi MD [Primary Care Provider] - Stand Alone Forms: [employer] Info Instructions
== END 2022-07-06 13:14 | disposition home or self-care (01) ==
PROVIDERS: Emergency Provider Family Medicine; PCP Internal Medicine
DX: R42 Dizziness and giddiness (principal)
CPT/HCPCS: 84484; 93005; 99283; 99284